=== PATIENT | male | born 1980 | race American Indian/Alaskan Native ===

== ENCOUNTER 2019-12-27 11:36 | Inpatient (IN) | payer OTHER ==
[2019-12-27] MEDS ORDERED: SODIUM CHLORIDE 0.9% 1000 ML 1,000 ML IV ONE (12:23)
[2019-12-27] MEDS ORDERED: FAMOTIDINE 20 MG/2 ML INJ IV ONE (12:23)
[2019-12-27] MEDS ORDERED: ONDANSETRON 4 MG/2 ML INJ IV ONE (12:23)
[2019-12-27 13:19] LABS: Hematocrit 55.5 % (35.5-45.6); Hemoglobin 18.9 gm/dl (11.8-15.2); Mean Corpuscular HGB Conc 34 % (32-34); Mean Corpuscular Volume 87 fl (84-94); Platelet Count 244 K/mm3 (140-440); Red Blood Count 6.38 M/mm3 (3.65-5.03); Red Cell Distribution Width 15.2 % (13.2-15.2)
[2019-12-27 13:42] LABS: Alanine Aminotransferase 10 units/L (7-56); Albumin 3.4 g/dL (3.9-5); BUN/Creatinine Ratio 8; Blood Urea Nitrogen 7 mg/dL (9-20); Calcium 9.3 mg/dL (8.4-10.2); Hemolysis Index 27
[2019-12-27] MEDS ORDERED: KETOROLAC 30 MG/1 ML INJ IV ONE (13:59)
[2019-12-27] MEDS ORDERED: DEXTROSE 50% IN WATER (25GM) 50 ML SYRINGE IV ONE (14:14)
[2019-12-27 14:39] LABS: Basophils % (Manual) 0 % (0.0-1.8); Total Cells Counted 100
[2019-12-27 14:40] LABS: Anisocytosis Few; Platelet Estimate Consistent w Auto; Poikilocytosis Few
--- NOTE | 2019-12-27 15:42 | Cat Scan Report ---
CT abdomen pelvis w con INDICATION / CLINICAL INFORMATION: Abdominal pain. TECHNIQUE: Axial CT imaging of abdomen and pelvis was obtained with IV contrast. Coronal and sagittal reformatte d imaging obtained and reviewed. All CT scans at this location are performed using CT dose reduction for ALARA by means of automated exposure control. COMPARISON: None available. FINDINGS: CT abdomen with contrast demonstrates normal appearance of liver, spleen, pancreas, left kidney, and adrenal glands. Right kidney is absent Gallbladder is grossly unremarkable. There is moderate intrahe patic biliary dilatation of uncertain etiology. GI tract is grossly abnormal. There is prominent dilatation of the majority of small bowel. Small bow el is fluid-filled and moderately distended. The stomach is also distended with fluid. The colon is c ollapsed. I do not confidently identify any collapsed loops of distal small bowel. Therefore the lev el of obstruction appears to be at the approximate location of the ileocecal valve. CT pelvis with contrast does not demonstrate any mass, free fluid, or focal inflammatory change. Visualized lung bases are clear. Review of osseous structures does not demonstrate any acute osseous abnormality. Several small but francis ne islands are present throughout the pelvis. IMPRESSION: 1. Abnormal appearance of the GI tract. There is prominent fluid-filled dilated small bowel and stoma ch, most likely representing distal small bowel obstruction. 2. Moderate intrahepatic biliary dilatation of uncertain etiology. Please correlate with liver enzyme s and bilirubin levels. Signer Name: Jodi Clayton MD Signed: 12/27/2019 3:37 PM Workstation Name: [id number]
[2019-12-27] MEDS ORDERED: MORPHINE 4 MG/1 ML INJ IV ONE (15:52)
[2019-12-27] MEDS ORDERED: LORazepam 2 MG/ML VIAL IV ONE (15:53)
--- NOTE | 2019-12-27 16:05 | Emergency Department Report ---
ED Abdominal Pain HPI - General Chief Complaint: Abdominal Pain Stated Complaint: ABD PAIN Time Seen by Provider: 12/27/19 12:14 Source: EMS Mode of arrival: Ambulatory Limitations: No Limitations - History of Present Illness Initial Comments: Patient is a 39-year-old F [place] male with a past medical history of right- sided nephrectomy status post Wilms tumor and appendectomy both of which occurred in the late 80s who is presenting with abdominal pain. Patient states for the past 2 days he has had some abdominal distention in the right lower quad rant and crampy 10 out of 10 pain. He has had multiple episodes of nausea and vomiting. He prefers to be on his knees hunched over in a ball. Denies fever chills cough cold or congestion. Patient stated he had a small bowel movement earlier today. States there was no blood in the stool. Severity scale (0 -10): 10 - Related Data Allergies Allergy/AdvReac Type Severity Reaction Status Date / Time No Known Allergies Allergy Unverified 12/27/19 11:57 ED Review of Systems ROS: Stated complaint: ABD PAIN Other details as noted in HPI Comment: All other systems reviewed and negative ED Past Medical Hx - Past Medical History Previous Medical History?: Yes - Surgical History Past Surgical History?: Yes Hx Appendectomy: Yes (Removed) Additional Surgical History: Right side kidner removed - Social History Smoking Status: Unknown if ever smoked ED Physical Exam - General Limitations: No Limitations General appearance: alert, in distress - Head Head exam: Present: atraumatic, normocephalic - Eye Eye exam: Present: normal appearance, PERRL, EOMI - ENT ENT exam: Present: mucous membranes dry - Neck Neck exam: Present: normal inspection - Respiratory Respiratory exam: Present: normal lung sounds bilaterally. Absent: respiratory distress, wheezes, rales, rhonchi - Cardiovascular Cardiovascular Exam: Present: regular rate, normal rhythm. Absent: systolic murmur, diastolic murmur, rubs, gallop - GI/Abdominal GI/Abdominal exam: Present: soft, tenderness (RLQ ), normal bowel sounds, hypoactive bowel sounds. Absent: distended, guarding, rebound - Rectal Rectal exam: Present: deferred - Extremities Exam Extremities exam: Present: normal inspection - Back Exam Back exam: Present: normal inspection - Neurological Exam Neurological exam: Present: alert, oriented X3 - Psychiatric Psychiatric exam: Present: normal affect, normal mood - Skin Skin exam: Present: warm, dry, intact, normal color. Absent: rash ED Course Vital Signs 12/27/19 12/27/19 12/27/19 11:52 11:53 14:26 Temperature 98.3 F 98.3 F Pulse Rate 58 L 60 Respiratory 22 22 20 Rate Blood Pressure 140/90 Blood Pressure 140/90 [Left] O2 Sat by Pulse 98 98 Oximetry ED Medical Decision Making - Lab Data Result diagrams: 12/27/19 12:39 12/27/19 12:39 Lab Results 12/27/19 12/27/19 Range/Units 12:39 12:39 WBC 9.1 (4.5-11.0) K/mm3 RBC 6.38 H (3.65-5.03) M/mm3 Hgb 18.9 H (11.8-15.2) gm/dl Hct 55.5 H (35.5-45.6) % MCV 87 (84-94) fl MCH 30 (28-32) pg MCHC 34 (32-34) % RDW 15.2 (13.2-15.2) % Plt Count 244 (140-440) K/mm3 Add Manual Diff Complete Total Counted 100 Seg Neutrophils % Degreasing Solution Reclaimer Seg Neuts % (Manual) 90.0 H (40.0-70.0) % Band Neutrophils % 0 % Lymphocytes % (Manual) 5.0 L (13.4-35.0) % Reactive Lymphs % (Man) 0 % Monocytes % (Manual) 4.0 (0.0-7.3) % Eosinophils % (Manual) 1.0 (0.0-4.3) % Basophils % (Manual) 0 (0.0-1.8) % Metamyelocytes % 0 % Myelocytes % 0 % Promyelocytes % 0 % Blast Cells % 0 % Nucleated RBC % Not Reportable Seg Neutrophils # Man 8.2 H (1.8-7.7) K/mm3 Band Neutrophils # 0.0 K/mm3 Lymphocytes # (Manual) 0.5 L (1.2-5.4) K/mm3 Abs React Lymphs (Man) 0.0 K/mm3 Monocytes # (Manual) 0.4 (0.0-0.8) K/mm3 Eosinophils # (Manual) 0.1 (0.0-0.4) K/mm3 Basophils # (Manual) 0.0 (0.0-0.1) K/mm3 Metamyelocytes # 0.0 K/mm3 Myelocytes # 0.0 K/mm3 Promyelocytes # 0.0 K/mm3 Blast Cells # 0.0 K/mm3 WBC Morphology Not Reportable Hypersegmented Neuts Not Reportable Hyposegmented Neuts Not Reportable Hypogranular Neuts Not Reportable Smudge Cells Not Reportable Toxic Granulation Not Reportable Toxic Vacuolation Not Reportable Dohle Bodies Not Reportable Pelger-Huet Anomaly Not Reportable Anuradha Rods Not Reportable Platelet Estimate Consistent w auto Clumped Platelets Not Reportable Plt Clumps, EDTA Not Reportable Large Platelets Not Reportable Giant Platelets Not Reportable Platelet Satelliting Not Reportable Plt Morphology Comment Not Reportable RBC Morphology Not Reportable Dimorphic RBCs Not Reportable Polychromasia Not Reportable Hypochromasia Not Reportable Poikilocytosis Few Anisocytosis Few Microcytosis Not Reportable Macrocytosis Not Reportable Spherocytes Not Reportable Pappenheimer Bodies Not Reportable Sickle Cells Not Reportable Target Cells Not Reportable Tear Drop Cells Not Reportable Ovalocytes Not Reportable Helmet Cells Not Reportable [place] Bodies Not Reportable [place] Rings Not Reportable Kaylie Cells Not Reportable Bite Cells Not Reportable Crenated Cell Not Reportable Elliptocytes Rare Acanthocytes (Spur) Not Reportable Rouleaux Not Reportable Hemoglobin C Crystals Not Reportable Schistocytes Not Reportable Malaria parasites Not Reportable Christ Bodies Not Reportable Hem Pathologist Commnt No Sodium 140 (137-145) mmol/L Potassium 4.5 (3.6-5.0) mmol/L Chloride 100.8 (98-107) mmol/L Carbon Dioxide 26 (22-30) mmol/L Anion Gap 18 mmol/L BUN 7 L (9-20) mg/dL Creatinine 0.9 (0.8-1.3) mg/dL Estimated GFR > 60 ml/min BUN/Creatinine Ratio 8 % Glucose 109 H (75-100) mg/dL Calcium 9.3 (8.4-10.2) mg/dL Total Bilirubin 1.00 (0.1-1.2) mg/dL AST 15 (5-40) units/L ALT 10 (7-56) units/L Alkaline Phosphatase 140 H (35-129) units/L Total Protein 5.9 L (6.3-8.2) g/dL Albumin 3.4 L (3.9-5) g/dL Albumin/Globulin Ratio 1.4 % - Radiology Data CT abdomen pelvis w con INDICATION / CLINICAL INFORMATION: Abdominal pain. TECHNIQUE: Axial CT imaging of abdomen and pelvis was obtained with IV contrast. Coronal and sagittal reformatted imaging obtained and reviewed. All CT scans at this location are performed using CT d ose reduction for ALARA by means of automated exposure control. COMPARISON: None available. FINDINGS: CT abdomen with contrast demonstrates normal appearance of liver, spleen, pancreas, left kidney, and adrenal glands. Right kidney is absent Gallbladder is grossly unremarkable. There is moderate intrahepatic biliary dilatation of uncertain etiology. GI tract is grossly abnormal. There is prominent dilatation of the majority of small bowel. Small bowel is fluid-filled and moderately distended. The stomach is also distended with fluid. The colon is collapsed. I do not confidently identify any collapsed loops of distal small bowel. Therefore the level of obstruction appears to be at the approximate location of the ileocecal valve. CT pelvis with contrast does not demonstrate any mass, free fluid, or focal inflammatory change. Visualized lung bases are clear. Review of osseous structures does not demonstrate any acute osseous abnormality. Several small but bone islands are present throughout the pelvis. IMPRESSION: 1. Abnormal appearance of the GI tract. There is prominent fluid-filled dilated small bowel and stomach, most likely representing distal small bowel obstruction. 2. Moderate intrahepatic biliary dilatation of uncertain etiology. Please correlate with liver enzymes and bilirubin levels. Signer Name: Jodi Clayton MD Signed: 12/27/2019 3:37 PM Workstation Name: [id number] Transcribed By: Dictated By: Jodi Clayton MD Electronically Authenticated By: Jodi Clayton MD Signed Date/Time: 12/27/19 [id number] - Medical Decision Making Patient is a 39-year-old F [place] male who is presenting with abdominal pain. Has had multiple episodes of nausea vomiting and some subjective abdominal distention at home. There was a delay with getting a CT secondary to the patient initially refusing secondary to pain. I was concerned about bowel obstruction therefore initially did not want to give the patient narcotics. Patient does have evidence of small bowel obstruction. We will given 1 dose of morphine and Ativan to tolerate getting the NG tube. Will consult with general surgery and the patient be admitted to the hospitalist service. Critical care attestation.: If time is entered above; I have spent that time in minutes in the direct care of this critically ill patient, excluding procedure time. ED Disposition Clinical Impression: Small bowel obstruction Disposition: OP ADMIT IP TO THIS HOSP Is pt being admited?: Yes Does the pt Need Aspirin: No Condition: Stable Time of Disposition: 16:05
--- NOTE | 2019-12-27 18:11 | Consultation ---
History of Present Illness - Reason for Consult Consult date: 12/27/19 - History of Present Illness This a 39 year old male with a several day hx of progressive abd distension, nausea, vomiting and abd pain. He has a hx of having had a Wilms tumor resected in the s, he recieved radiation and chemotherapy, right nephrectomy. He has enjoyed good health in the interim, and when I examined him he gave a poor history when I asked detailed questions about his hx. He presented to the ER with dehydration and a CT abd pelvis revealing diffuse SBO with no obvious transition point. He does have rather diffuse changes in his small intestine which may be the result of previous radiation. He has an NG placed in the ER.His lactic acid is mildly elevated secondary to dehydration.His WBC is normal, he does not have sinus tach or a worrisome abd exam. Past History Past Surgical History: Other (hx of right nephrectomy and adjunctive therapy) Social history: no significant social history Family history: no significant family history Medications and Allergies Allergies Allergy/AdvReac Type Severity Reaction Status Date / Time No Known Allergies Allergy Unverified 12/27/19 11:57 Active Meds: Active Medications Sodium Chloride (Nacl 0.9% 1000 Ml) 1,000 mls @ 150 mls/hr IV DIRECT SUSAN Review of Systems Gastrointestinal: abdominal pain, nausea, vomiting Exam - Constitutional Vitals: Temp Pulse Resp BP Pulse Ox 98.3 F 88 18 130/70 98 12/27/19 12:16 12/27/19 17:18 12/27/19 17:18 12/27/19 17:18 12/27/19 17:18 General appearance: Present: mild distress - EENT Eyes: Present: PERRL ENT: hearing intact, clear oral mucosa - Neck Neck: Present: supple, normal ROM - Respiratory Respiratory effort: normal Respiratory: bilateral: CTA - Cardiovascular Rhythm: regular - Extremities Extremities: pulses symmetrical, No edema - Abdominal General gastrointestinal: Present: distended, normal bowel sounds, other (no rebound or guarding) Male genitourinary: Present: normal - Rectal Rectal Exam: deferred - Musculoskeletal Musculoskeletal: gait normal, strength equal bilaterally - Psychiatric Psychiatric: appropriate mood/affect, intact judgment & insight - Neurologic Neurologic: CNII-XII intact, moves all extremities Results - Labs CBC & Chem 7: 12/27/19 12:39 12/27/19 12:39 Labs: Abnormal lab results 12/27/19 12/27/19 12/27/19 Range/Units 12:39 12:39 17:14 RBC 6.38 H (3.65-5.03) M/mm3 Hgb 18.9 H (11.8-15.2) gm/dl Hct 55.5 H (35.5-45.6) % Seg Neuts % (Manual) 90.0 H (40.0-70.0) % Lymphocytes % (Manual) 5.0 L (13.4-35.0) % Seg Neutrophils # Man 8.2 H (1.8-7.7) K/mm3 Lymphocytes # (Manual) 0.5 L (1.2-5.4) K/mm3 BUN 7 L (9-20) mg/dL Glucose 109 H (75-100) mg/dL Lactic Acid 2.40 H* (0.7-2.0) mmol/L Alkaline Phosphatase 140 H (35-129) units/L Total Protein 5.9 L (6.3-8.2) g/dL Albumin 3.4 L (3.9-5) g/dL Assessment and Plan This is actually potentially a very complex and risky case, I am very concerned about the possibility of radiation changes from his treatment of his Wilm's Tumor resulting in obliterative endarteritis or advanced radiation changes in his small bowel, I will review CT with radiology, patient needs aggressive rehydration, pain control, and decompression with NG for 24-48 hours then possible gastrograffin small bowel series to see if he opens up,also repeat or serial lytes to ensure patient is adequately rehydrated. Will follow.
[2019-12-27 18:26] LABS: Bilirubin,Urine NEG (Negative); Blood,Urine MOD (Negative); Color,Urine Yellow (Yellow); Mucus,Urine 3+ /HPF; Urobilinogen,Urine < 2.0 mg/dL (<2.0)
[2019-12-27] MEDS: SODIUM CHLORIDE 0.9% 1000 ML 1,000 ML IV SCH (21:30)
[2019-12-27] MEDS ORDERED: MORPHINE 2 MG/1 ML INJ IV PRN (21:42)
--- NOTE | 2019-12-27 23:13 | History and Physical Report ---
History of Present Illness Date of examination: 12/27/19 Date of admission: 12/27/19 16:08 Chief complaint: Abdominal pain nausea and vomiting for 2 days History of present illness: 39-year-old with no significant past medical history except for removal of right kidney because of the tumor(Wilms) comes in for persistent nausea vomiting and abdominal pain of 2 days duration. Unable to tolerate anything orally. Pain is about 10 on a scale of 1-10. Sharp and crampy pain. No fever or chills. No exposure to coronavirus. No history of small bowel obstruction in the past. - Past Medical History Previous Medical History?: Yes - Surgical History Past Surgical History?: Yes Hx Appendectomy: Yes (Removed) Additional Surgical History: Right side kidner removed - Social History Smoking Status: Unknown if ever smoked Review of Systems ROS: Stated complaint: ABD PAIN Other details as noted in HPI Comment: All other systems reviewed and negative Past History Past Surgical History: Other (hx of right nephrectomy and adjunctive therapy) Social history: no significant social history Family history: no significant family history Medications and Allergies Allergies Allergy/AdvReac Type Severity Reaction Status Date / Time No Known Allergies Allergy Unverified 12/27/19 11:57 Active Meds: Active Medications Sodium Chloride (Nacl 0.9% 1000 Ml) 1,000 mls @ 150 mls/hr IV DIRECT SUSAN Last Admin: 12/27/19 21:30 Dose: 150 mls/hr Documented by: Morphine Sulfate (Morphine) 2 mg IV Q4H PRN PRN Reason: Pain, Moderate (4-6) Last Admin: 12/27/19 22:05 Dose: 2 mg Documented by: Exam - Constitutional Vitals: Temp Pulse Resp BP Pulse Ox 98.3 F 64 18 109/64 99 12/27/19 20:05 12/27/19 20:05 12/27/19 20:05 12/27/19 20:05 12/27/19 20:05 General appearance: Present: severe distress, well-nourished - EENT Eyes: Present: PERRL ENT: hearing intact, clear oral mucosa - Neck Neck: Present: supple, normal ROM - Respiratory Respiratory effort: normal Respiratory: bilateral: CTA - Cardiovascular Heart rate: 88 Rhythm: regular Heart Sounds: Present: S1 & S2. Absent: rub, click - Extremities Extremities: no ischemia, pulses symmetrical, No edema Peripheral Pulses: within normal limits - Abdominal General gastrointestinal: Present: soft, tender, distended, hypoactive bowel sounds Localized gastrointestinal: tender: diffuse, guarding: diffuse Male genitourinary: Present: normal - Integumentary Integumentary: Present: clear, warm, dry - Musculoskeletal Musculoskeletal: gait normal, strength equal bilaterally - Psychiatric Psychiatric: appropriate mood/affect, intact judgment & insight - Neurologic Neurologic: CNII-XII intact, moves all extremities - Allied Health Allied health notes reviewed: nursing, case management Results - Labs CBC & Chem 7: 12/28/19 04:35 12/28/19 04:35 Labs: Laboratory Last Values WBC 9.1 K/mm3 (4.5-11.0) 12/27/19 12:39 RBC 6.38 M/mm3 (3.65-5.03) H 12/27/19 12:39 Hgb 18.9 gm/dl (11.8-15.2) H 12/27/19 12:39 Hct 55.5 % (35.5-45.6) H 12/27/19 12:39 MCV 87 fl (84-94) 12/27/19 12:39 MCH 30 pg (28-32) 12/27/19 12:39 MCHC 34 % (32-34) 12/27/19 12:39 RDW 15.2 % (13.2-15.2) 12/27/19 12:39 Plt Count 244 K/mm3 (140-440) 12/27/19 12:39 Add Manual Diff Complete 12/27/19 12:39 Total Counted 100 12/27/19 12:39 Seg Neutrophils % Remarketing Manager 12/27/19 12:39 Seg Neuts % (Manual) 90.0 % (40.0-70.0) H 12/27/19 12:39 Band Neutrophils % 0 % 12/27/19 12:39 Lymphocytes % (Manual) 5.0 % (13.4-35.0) L 12/27/19 12:39 Reactive Lymphs % (Man) 0 % 12/27/19 12:39 Monocytes % (Manual) 4.0 % (0.0-7.3) 12/27/19 12:39 Eosinophils % (Manual) 1.0 % (0.0-4.3) 12/27/19 12:39 Basophils % (Manual) 0 % (0.0-1.8) 12/27/19 12:39 Metamyelocytes % 0 % 12/27/19 12:39 Myelocytes % 0 % 12/27/19 12:39 Promyelocytes % 0 % 12/27/19 12:39 Blast Cells % 0 % 12/27/19 12:39 Nucleated RBC % Not Reportable 12/27/19 12:39 Seg Neutrophils # Man 8.2 K/mm3 (1.8-7.7) H 12/27/19 12:39 Band Neutrophils # 0.0 K/mm3 12/27/19 12:39 Lymphocytes # (Manual) 0.5 K/mm3 (1.2-5.4) L 12/27/19 12:39 Abs React Lymphs (Man) 0.0 K/mm3 12/27/19 12:39 Monocytes # (Manual) 0.4 K/mm3 (0.0-0.8) 12/27/19 12:39 Eosinophils # (Manual) 0.1 K/mm3 (0.0-0.4) 12/27/19 12:39 Basophils # (Manual) 0.0 K/mm3 (0.0-0.1) 12/27/19 12:39 Metamyelocytes # 0.0 K/mm3 12/27/19 12:39 Myelocytes # 0.0 K/mm3 12/27/19 12:39 Promyelocytes # 0.0 K/mm3 12/27/19 12:39 Blast Cells # 0.0 K/mm3 12/27/19 12:39 WBC Morphology Not Reportable 12/27/19 12:39 Hypersegmented Neuts Not Reportable 12/27/19 12:39 Hyposegmented Neuts Not Reportable 12/27/19 12:39 Hypogranular Neuts Not Reportable 12/27/19 12:39 Smudge Cells Not Reportable 12/27/19 12:39 Toxic Granulation Not Reportable 12/27/19 12:39 Toxic Vacuolation Not Reportable 12/27/19 12:39 Dohle Bodies Not Reportable 12/27/19 12:39 Pelger-Huet Anomaly Not Reportable 12/27/19 12:39 Anuradha Rods Not Reportable 12/27/19 12:39 Platelet Estimate Consistent w auto 12/27/19 12:39 Clumped Platelets Not Reportable 12/27/19 12:39 Plt Clumps, EDTA Not Reportable 12/27/19 12:39 Large Platelets Not Reportable 12/27/19 12:39 Giant Platelets Not Reportable 12/27/19 12:39 Platelet Satelliting Not Reportable 12/27/19 12:39 Plt Morphology Comment Not Reportable 12/27/19 12:39 RBC Morphology Not Reportable 12/27/19 12:39 Dimorphic RBCs Not Reportable 12/27/19 12:39 Polychromasia Not Reportable 12/27/19 12:39 Hypochromasia Not Reportable 12/27/19 12:39 Poikilocytosis Few 12/27/19 12:39 Anisocytosis Few 12/27/19 12:39 Microcytosis Not Reportable 12/27/19 12:39 Macrocytosis Not Reportable 12/27/19 12:39 Spherocytes Not Reportable 12/27/19 12:39 Pappenheimer Bodies Not Reportable 12/27/19 12:39 Sickle Cells Not Reportable 12/27/19 12:39 Target Cells Not Reportable 12/27/19 12:39 Tear Drop Cells Not Reportable 12/27/19 12:39 Ovalocytes Not Reportable 12/27/19 12:39 Helmet Cells Not Reportable 12/27/19 12:39 Aleman-[place] Bodies Not Reportable 12/27/19 12:39 [place] Rings Not Reportable 12/27/19 12:39 Kaylie Cells Not Reportable 12/27/19 12:39 Bite Cells Not Reportable 12/27/19 12:39 Crenated Cell Not Reportable 12/27/19 12:39 Elliptocytes Rare 12/27/19 12:39 Acanthocytes (Spur) Not Reportable 12/27/19 12:39 Rouleaux Not Reportable 12/27/19 12:39 Hemoglobin C Crystals Not Reportable 12/27/19 12:39 Schistocytes Not Reportable 12/27/19 12:39 Malaria parasites Not Reportable 12/27/19 12:39 Christ Bodies Not Reportable 12/27/19 12:39 Hem Pathologist Commnt No 12/27/19 12:39 Sodium 140 mmol/L (137-145) 12/27/19 12:39 Potassium 4.5 mmol/L (3.6-5.0) 12/27/19 12:39 Chloride 100.8 mmol/L (98-107) 12/27/19 12:39 Carbon Dioxide 26 mmol/L (22-30) 12/27/19 12:39 Anion Gap 18 mmol/L 12/27/19 12:39 BUN 7 mg/dL (9-20) L 12/27/19 12:39 Creatinine 0.9 mg/dL (0.8-1.3) 12/27/19 12:39 Estimated GFR > 60 ml/min 12/27/19 12:39 BUN/Creatinine Ratio 8 % 12/27/19 12:39 Glucose 109 mg/dL (75-100) H 12/27/19 12:39 Lactic Acid 2.10 mmol/L (0.7-2.0) H* 12/27/19 19:07 Calcium 9.3 mg/dL (8.4-10.2) 12/27/19 12:39 Total Bilirubin 1.00 mg/dL (0.1-1.2) 12/27/19 12:39 AST 15 units/L (5-40) 12/27/19 12:39 ALT 10 units/L (7-56) 12/27/19 12:39 Alkaline Phosphatase 140 units/L (35-129) H 12/27/19 12:39 Total Protein 5.9 g/dL (6.3-8.2) L 12/27/19 12:39 Albumin 3.4 g/dL (3.9-5) L 12/27/19 12:39 Albumin/Globulin Ratio 1.4 % 12/27/19 12:39 Urine Color Yellow (Yellow) 12/27/19 Unknown Urine Turbidity Clear (Clear) 12/27/19 Unknown Urine pH 5.0 (5.0-7.0) 12/27/19 Unknown Ur Specific [place] > 1.059 (1.003-1.030) H 12/27/19 Unknown Urine Protein 30 mg/dl mg/dL (Negative) 12/27/19 Unknown Urine Glucose (UA) Neg mg/dL (Negative) 12/27/19 Unknown Urine Ketones 20 mg/dL (Negative) 12/27/19 Unknown Urine Blood Mod (Negative) 12/27/19 Unknown Urine Nitrite Neg (Negative) 12/27/19 Unknown Urine Bilirubin Neg (Negative) 12/27/19 Unknown Urine Urobilinogen < 2.0 mg/dL (<2.0) 12/27/19 Unknown Ur Leukocyte Esterase Neg (Negative) 12/27/19 Unknown Urine WBC (Auto) 2.0 /HPF (0.0-6.0) 12/27/19 Unknown Urine RBC (Auto) 28.0 /HPF (0.0-6.0) 12/27/19 Unknown U Epithel Cells (Auto) < 1.0 /HPF (0-13.0) 12/27/19 Unknown Urine Mucus 3+ /HPF 12/27/19 Unknown Azul/IV: IV Catheter Type [Right INT / Saline Lock Antecubital] Assessment and Plan Advance Directives: Yes (Full code) VTE prophylaxis?: Chemical Plan of care discussed with patient/family: Yes - Patient Problems (1) Small bowel obstruction Current Visit: Yes Status: Acute Plan to address problem: Conservative treatment for now [facility] appreciated (2) Dehydration Current Visit: Yes Status: Acute Plan to address problem: Secondary to persistent vomiting IV fluids for now (3) DVT prophylaxis Current Visit: Yes Status: Acute Plan to address problem: On heparin and GI prophylaxis
[2019-12-27] MEDS ORDERED: METOCLOPRAMIDE 10 MG/2 ML INJ IV PRN (23:14)
[2019-12-28] MEDS: FAMOTIDINE 20 MG/2 ML INJ IV SCH ×3 (00:17→21:00)
[2019-12-28] MEDS: HYDROmorphone 1 MG/1 ML INJ IV PRN ×2 (00:46→04:40)
[2019-12-28 05:03] LABS: Basophils % (Auto) 0.4 % (0.0-1.8); Eosinophils % (Auto) 0.4 % (0.0-4.3); Hemoglobin 16.5 gm/dl (11.8-15.2); Lymphocytes # (Auto) 0.9 K/mm3 (1.2-5.4); Lymphocytes % (Auto) 13.6 % (13.4-35.0); Monocytes # (Auto) 0.4 K/mm3 (0.0-0.8); Monocytes % (Auto) 6.8 % (0.0-7.3)
[2019-12-28 05:16] LABS: Alanine Aminotransferase 8 units/L (7-56); Albumin 2.9 g/dL (3.9-5); BUN/Creatinine Ratio 11; Blood Urea Nitrogen 9 mg/dL (9-20); Calcium 8.4 mg/dL (8.4-10.2); Hematocrit 49.5 % (35.5-45.6); Hemolysis Index 13; Mean Corpuscular HGB Conc 34 % (32-34); Mean Corpuscular Volume 88 fl (84-94); Platelet Count 227 K/mm3 (140-440); Red Blood Count 5.63 M/mm3 (3.65-5.03)
[2019-12-28] MEDS: SODIUM CHLORIDE 0.9% 1000 ML 1,000 ML IV SCH ×3 (06:00→21:50)
--- NOTE | 2019-12-28 07:04 | XRay Report ---
ABDOMEN 1 VIEW(S) 12/28/2019 5:48 AM INDICATION / CLINICAL INFORMATION: ng placement. COMPARISON: None available. FINDINGS: The tip of an esophagogastric tube projects over the proximal stomach with side hole noted in distal esophagus. Recommend recommend NG tube advancement into distal stomach. Signer Name: Elton Morelos MD Signed: 12/28/2019 7:00 AM Workstation Name: [email or web address]
[2019-12-28] MEDS: MORPHINE 2 MG/1 ML INJ IV PRN ×4 (08:22→20:46)
--- NOTE | 2019-12-28 08:40 | Progress Note ---
Assessment and Plan - Patient Problems (1) DVT prophylaxis Current Visit: Yes Status: Acute (2) Dehydration Current Visit: Yes Status: Acute Plan to address problem: Resolved. (3) Small bowel obstruction Current Visit: Yes Status: Acute Plan to address problem: Patient hooked up to NG to low intermittent suction. Long discussion with surgery about consultation. Concerned about radiation changes to the small bowel. Thinks surgery would be risky at this time. Plan was to hydrate patient supportive care for 24 hours and attempt Gastrografin in a.m. If patient opens up will discharge and if not may require surgical intervention. Subjective Date of service: 12/28/19 Principal diagnosis: Abdominal pain small bowel obstruction Interval history: 39-year-old presented with persistent nausea and vomiting abdominal pain x2 days. Pain described as [address] scan abdomen showed small bowel obstruction. Patient had NG tube placed to low intermittent suction. Surgical consult obtained concerned about radiation changes in small bowel. Patient currently being decompressed. Patient has NG tube to suction. States he wants some ice chips. Pain is much better. Patient uncomfortable because of thirst and NG tube. But with surgery in detail. Explained about complications of devan staley's present admission. Objective - Constitutional Vitals: Vital Signs - 12hr 12/27/19 12/28/19 12/28/19 23:05 05:26 08:09 Temperature 98.6 F 98.1 F 98.4 F Pulse Rate 70 58 L 59 L Respiratory 18 18 19 Rate Blood Pressure 101/62 99/62 125/74 O2 Sat by Pulse 97 99 100 Oximetry General appearance: Present: no acute distress, well-nourished - EENT Eyes: PERRL, EOM intact ENT: hearing intact, clear oral mucosa Ears: bilateral: normal - Neck Neck: supple, normal ROM - Respiratory Respiratory effort: normal Respiratory: bilateral: CTA - Breasts Breasts: normal - Cardiovascular Rhythm: regular Heart Sounds: Present: S1 & S2. Absent: gallop, rub Extremities: pulses intact, No edema, normal color, Full ROM - Gastrointestinal General gastrointestinal: Present: tender, non-distended, normal bowel sounds. Absent: hepatomegaly, splenomegaly - Genitourinary Male genitourinary: normal - Integumentary Integumentary: clear, warm, dry - Musculoskeletal Musculoskeletal: 1, strength equal bilaterally - Neurologic Neurologic: moves all extremities - Psychiatric Psychiatric: memory intact, appropriate mood/affect, intact judgment & insight - Labs CBC & Chem 7: 12/28/19 04:35 12/28/19 04:35 Labs: Abnormal lab results 12/27/19 12/27/19 12/27/19 Range/Units 12:39 12:39 17:14 RBC 6.38 H (3.65-5.03) M/mm3 Hgb 18.9 H (11.8-15.2) gm/dl Hct 55.5 H (35.5-45.6) % Lymph # (Auto) (1.2-5.4) K/mm3 Seg Neutrophils % (40.0-70.0) % Seg Neuts % (Manual) 90.0 H (40.0-70.0) % Lymphocytes % (Manual) 5.0 L (13.4-35.0) % Seg Neutrophils # Man 8.2 H (1.8-7.7) K/mm3 Lymphocytes # (Manual) 0.5 L (1.2-5.4) K/mm3 BUN 7 L (9-20) mg/dL Glucose 109 H (75-100) mg/dL Lactic Acid 2.40 H* (0.7-2.0) mmol/L Alkaline Phosphatase 140 H (35-129) units/L Total Protein 5.9 L (6.3-8.2) g/dL Albumin 3.4 L (3.9-5) g/dL Ur Specific [place] (1.003-1.030) 12/27/19 12/27/19 12/28/19 Range/Units 19:07 Unknown 04:35 RBC 5.63 H (3.65-5.03) M/mm3 Hgb 16.5 H (11.8-15.2) gm/dl Hct 49.5 H D (35.5-45.6) % Lymph # (Auto) 0.9 L (1.2-5.4) K/mm3 Seg Neutrophils % 78.8 H (40.0-70.0) % Seg Neuts % (Manual) (40.0-70.0) % Lymphocytes % (Manual) (13.4-35.0) % Seg Neutrophils # Man (1.8-7.7) K/mm3 Lymphocytes # (Manual) (1.2-5.4) K/mm3 BUN (9-20) mg/dL Glucose (75-100) mg/dL Lactic Acid 2.10 H* (0.7-2.0) mmol/L Alkaline Phosphatase (35-129) units/L Total Protein (6.3-8.2) g/dL Albumin (3.9-5) g/dL Ur Specific [place] > 1.059 H (1.003-1.030) 12/28/19 Range/Units 04:35 RBC (3.65-5.03) M/mm3 Hgb (11.8-15.2) gm/dl Hct (35.5-45.6) % Lymph # (Auto) (1.2-5.4) K/mm3 Seg Neutrophils % (40.0-70.0) % Seg Neuts % (Manual) (40.0-70.0) % Lymphocytes % (Manual) (13.4-35.0) % Seg Neutrophils # Man (1.8-7.7) K/mm3 Lymphocytes # (Manual) (1.2-5.4) K/mm3 BUN (9-20) mg/dL Glucose (75-100) mg/dL Lactic Acid (0.7-2.0) mmol/L Alkaline Phosphatase (35-129) units/L Total Protein 5.1 L (6.3-8.2) g/dL Albumin 2.9 L (3.9-5) g/dL Ur Specific [place] (1.003-1.030)
--- NOTE | 2019-12-28 11:29 | Progress Note ---
Subjective Date of service: 12/28/19 Principal diagnosis: Abdominal pain small bowel obstruction Interval history: VSS AF, about 200 cc out NG, not passing flatus , no BM, abd exam less distended , recc gastrograffin small bowel series in am and see if patient opens up, I spoke with Dr. Martinez (Hospitalist) about this. bun / creat better, lactic acid now normal, continue present management. Objective - Constitutional Vitals: Vital Signs - 12hr 12/28/19 12/28/19 05:26 08:09 Temperature 98.1 F 98.4 F Pulse Rate 58 L 59 L Respiratory 18 19 Rate Blood Pressure 99/62 125/74 O2 Sat by Pulse 99 100 Oximetry - Labs CBC & Chem 7: 12/28/19 04:35 12/28/19 04:35 Labs: Abnormal lab results 12/27/19 12/27/19 12/27/19 Range/Units 12:39 12:39 17:14 RBC 6.38 H (3.65-5.03) M/mm3 Hgb 18.9 H (11.8-15.2) gm/dl Hct 55.5 H (35.5-45.6) % Lymph # (Auto) (1.2-5.4) K/mm3 Seg Neutrophils % (40.0-70.0) % Seg Neuts % (Manual) 90.0 H (40.0-70.0) % Lymphocytes % (Manual) 5.0 L (13.4-35.0) % Seg Neutrophils # Man 8.2 H (1.8-7.7) K/mm3 Lymphocytes # (Manual) 0.5 L (1.2-5.4) K/mm3 BUN 7 L (9-20) mg/dL Glucose 109 H (75-100) mg/dL Lactic Acid 2.40 H* (0.7-2.0) mmol/L Alkaline Phosphatase 140 H (35-129) units/L Total Protein 5.9 L (6.3-8.2) g/dL Albumin 3.4 L (3.9-5) g/dL Ur Specific [place] (1.003-1.030) 12/27/19 12/27/19 12/28/19 Range/Units 19:07 Unknown 04:35 RBC 5.63 H (3.65-5.03) M/mm3 Hgb 16.5 H (11.8-15.2) gm/dl Hct 49.5 H D (35.5-45.6) % Lymph # (Auto) 0.9 L (1.2-5.4) K/mm3 Seg Neutrophils % 78.8 H (40.0-70.0) % Seg Neuts % (Manual) (40.0-70.0) % Lymphocytes % (Manual) (13.4-35.0) % Seg Neutrophils # Man (1.8-7.7) K/mm3 Lymphocytes # (Manual) (1.2-5.4) K/mm3 BUN (9-20) mg/dL Glucose (75-100) mg/dL Lactic Acid 2.10 H* (0.7-2.0) mmol/L Alkaline Phosphatase (35-129) units/L Total Protein (6.3-8.2) g/dL Albumin (3.9-5) g/dL Ur Specific [place] > 1.059 H (1.003-1.030) 12/28/19 Range/Units 04:35 RBC (3.65-5.03) M/mm3 Hgb (11.8-15.2) gm/dl Hct (35.5-45.6) % Lymph # (Auto) (1.2-5.4) K/mm3 Seg Neutrophils % (40.0-70.0) % Seg Neuts % (Manual) (40.0-70.0) % Lymphocytes % (Manual) (13.4-35.0) % Seg Neutrophils # Man (1.8-7.7) K/mm3 Lymphocytes # (Manual) (1.2-5.4) K/mm3 BUN (9-20) mg/dL Glucose (75-100) mg/dL Lactic Acid (0.7-2.0) mmol/L Alkaline Phosphatase (35-129) units/L Total Protein 5.1 L (6.3-8.2) g/dL Albumin 2.9 L (3.9-5) g/dL Ur Specific [place] (1.003-1.030) Medications & Allergies - Medications Allergies/Adverse Reactions: Allergies No Known Allergies Allergy (Unverified 12/27/19 11:57) Active Medications: Generic Name Dose Route Start Last Admin Trade Name Freq PRN Reason Stop Dose Admin Acetaminophen 650 mg 12/27/19 23:14 Tylenol PO Q4H PRN Pain MILD(1-3)/Fever >100.5/LAZCANO Famotidine 20 mg 12/27/19 23:45 12/28/19 00:17 Pepcid IV 20 mg BID SUSAN Administration Heparin Sodium (Porcine) 5,000 unit 12/28/19 10:00 Heparin SUB-Q Q12HR [facility] Hydromorphone HCl 1 mg 12/27/19 23:14 12/28/19 04:40 Dilaudid IV 1 mg Q3H PRN Administration Pain , Severe (7-10) Sodium Chloride 1,000 mls @ 100 mls/hr 12/27/19 16:15 12/28/19 06:00 Nacl 0.9% 1000 Ml IV 150 mls/hr DIRECT SUSAN Administration Metoclopramide HCl 10 mg 12/27/19 23:14 Reglan IV Q6H PRN Nausea And Vomiting Morphine Sulfate 2 mg 12/27/19 23:14 12/28/19 08:22 Morphine IV 2 mg Q4H PRN Administration Pain, Moderate (4-6) Ondansetron HCl 4 mg 12/27/19 23:14 Zofran IV Q3H PRN Nausea And Vomiting Sodium Chloride 10 ml 12/28/19 10:00 Sodium Chloride Flush Syringe 10 Ml IV BID SUSAN Sodium Chloride 10 ml 12/27/19 23:14 Sodium Chloride Flush Syringe 10 Ml IV PRN PRN LINE FLUSH
--- NOTE | 2019-12-28 11:47 | XRay Report ---
ABDOMEN 1 VIEW(S) INDICATION / CLINICAL INFORMATION: to check placement of NGT. COMPARISON: Earlier today FINDINGS: TUBES / LINES: NG tube has been slightly advanced in appropriate position with tip in the mid stomach . BOWEL GAS PATTERN: Nonobstructive bowel gas pattern with postoperative change in the right abdomen ag ain noted. FREE AIR / EXTRALUMINAL GAS: None seen. ADDITIONAL FINDINGS: No significant additional findings. IMPRESSION: 1. NG tube in satisfactory position in the mid abdomen. 2. Nonobstructive bowel gas pattern on this exam. Signer Name: Aidan Kim MD Signed: 12/28/2019 11:43 AM Workstation Name: [id number]
[2019-12-28] MEDS: HEPARIN 5,000 UNIT/1 ML VIAL SUB-Q SCH ×2 (12:31→21:00)
[2019-12-29] MEDS: MORPHINE 2 MG/1 ML INJ IV PRN (01:25)
[2019-12-29] MEDS: ONDANSETRON 4 MG/2 ML INJ IV PRN ×2 (01:37→12:31)
--- NOTE | 2019-12-29 02:21 | XRay Report ---
ABDOMEN 1 VIEW(S) INDICATION / CLINICAL INFORMATION: SBO and new NG tube position. COMPARISON: None available. FINDINGS: TUBES / LINES: NG tube tip projects over the gastroesophageal junction and could be advanced. BOWEL GAS PATTERN/EXTRALUMINAL GAS: No significant abnormality. No pneumatosis or secondary signs of free air. ADDITIONAL FINDINGS: No significant additional findings. IMPRESSION: 1. NG tube tip projects over the gastroesophageal junction. 2. Nonobstructive bowel gas pattern on this exam. Signer Name: Josesito Rouse MD Signed: 12/29/2019 2:17 AM Workstation Name: [email or web address]
[2019-12-29] MEDS: HYDROmorphone 1 MG/1 ML INJ IV PRN ×3 (06:29→12:32)
[2019-12-29] MEDS: SODIUM CHLORIDE 0.9% 1000 ML 1,000 ML IV SCH (06:32)
--- NOTE | 2019-12-29 08:00 | Progress Note ---
Assessment and Plan Complex case, should repeat lytes this am, patient pulled out NG last pm, it has been reinserted, around 350 cc out, abd relatively soft, consider gastrograffin small bowel series via NG ( normal transit time from stomach to colon less than 4 hours), be sure and resume suction after study to reduce risk of aspiration. I am uncertain study can be performed today, I will check with Radiology when they arrive. Ice chips are OK, but patient should not drink water! Depending on study result, patient may need PIC line and TPN, but we shall see. Subjective Date of service: 12/29/19 Principal diagnosis: Abdominal pain small bowel obstruction Objective - Constitutional Vitals: Vital Signs - 12hr 12/28/19 12/28/19 12/28/19 20:40 20:46 21:00 Temperature 98.8 F Pulse Rate 60 Pulse Rate [ 60 Right Radial] Respiratory 17 17 17 Rate Blood Pressure 118/56 [Left] O2 Sat by Pulse 96 Oximetry 12/28/19 12/29/19 12/29/19 21:16 01:25 01:55 Temperature Pulse Rate Pulse Rate [ Right Radial] Respiratory 16 16 16 Rate Blood Pressure [Left] O2 Sat by Pulse Oximetry 12/29/19 12/29/19 06:22 06:29 Temperature 97.7 F Pulse Rate 56 L Pulse Rate [ Right Radial] Respiratory 17 16 Rate Blood Pressure 122/63 [Left] O2 Sat by Pulse 97 Oximetry General appearance: Present: no acute distress - EENT Eyes: PERRL, EOM intact ENT: hearing intact, clear oral mucosa - Neck Neck: supple, normal ROM - Respiratory Respiratory effort: normal - Breasts Breasts: deferred - Cardiovascular Rhythm: regular - Gastrointestinal General gastrointestinal: Present: soft, non-tender, other (less distended, normal to hypoactive BS) - Psychiatric Psychiatric: memory intact, appropriate mood/affect, intact judgment & insight - Labs CBC & Chem 7: 12/28/19 04:35 12/28/19 04:35 Medications & Allergies - Medications Allergies/Adverse Reactions: Allergies No Known Allergies Allergy (Unverified 12/27/19 11:57) Active Medications: Generic Name Dose Route Start Last Admin Trade Name Freq PRN Reason Stop Dose Admin Acetaminophen 650 mg 12/27/19 23:14 Tylenol PO Q4H PRN Pain MILD(1-3)/Fever >100.5/[place]O Famotidine 20 mg 12/27/19 23:45 12/28/19 21:00 Pepcid IV 20 mg BID SUSAN Administration Heparin Sodium (Porcine) 5,000 unit 12/28/19 10:00 12/28/19 21:00 Heparin SUB-Q 5,000 unit Q12HR SUSAN Administration Hydromorphone HCl 1 mg 12/27/19 23:14 12/29/19 06:29 Dilaudid IV 1 mg Q3H PRN Administration Pain , Severe (7-10) Sodium Chloride 1,000 mls @ 100 mls/hr 12/27/19 16:15 12/29/19 06:32 Nacl 0.9% 1000 Ml IV 150 mls/hr DIRECT SUSAN Administration Metoclopramide HCl 10 mg 12/27/19 23:14 Reglan IV Q6H PRN Nausea And Vomiting Morphine Sulfate 2 mg 12/27/19 23:14 12/29/19 01:25 Morphine IV 2 mg Q4H PRN Administration Pain, Moderate (4-6) Ondansetron HCl 4 mg 12/27/19 23:14 12/29/19 01:37 Zofran IV 4 mg Q3H PRN Administration Nausea And Vomiting Sodium Chloride 10 ml 12/28/19 10:00 12/28/19 23:08 Sodium Chloride Flush Syringe 10 Ml IV 10 ml BID SUSAN Administration Sodium Chloride 10 ml 12/27/19 23:14 Sodium Chloride Flush Syringe 10 Ml IV PRN PRN LINE FLUSH
[2019-12-29] MEDS: HEPARIN 5,000 UNIT/1 ML VIAL SUB-Q SCH (10:16)
[2019-12-29] MEDS: FAMOTIDINE 20 MG/2 ML INJ IV SCH (10:17)
[2019-12-29] MEDS ORDERED: HYDROmorphone 1 MG/1 ML INJ IV ONE (10:27)
[2019-12-29] MEDS ORDERED: HYDROmorphone 2 MG/1 ML INJ IV PRN (12:25)
--- NOTE | 2019-12-29 13:57 | Progress Note ---
Assessment and Plan - Patient Problems (1) DVT prophylaxis Current Visit: Yes Status: Acute (2) Dehydration Current Visit: Yes Status: Acute Plan to address problem: Resolved. (3) Small bowel obstruction Current Visit: Yes Status: Acute Plan to address problem: Patient with small bowel obstruction now with persistent pain. 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 Patient still has persistent pain. Will attempt to continue NG tube suction if patient will allow. Will obtain CT scan abdomen pelvis to rule out all possible etiologies such as perforation. Will obtain a.m. labs amylase lipase lactic acid. Evaluate for infection. Subjective Date of service: 12/29/19 Principal diagnosis: Abdominal pain small bowel obstruction Interval history: Patient today complains of abdominal pain really left lower quadrant. States is severe. States current pain medications not really helping. Patient has pulled NG tube out this is the third time. Objective - Constitutional Vitals: Vital Signs - 12hr 12/29/19 12/29/19 12/29/19 01:55 06:22 06:29 Temperature 97.7 F Pulse Rate 56 L Respiratory 16 17 16 Rate Blood Pressure 122/63 [Left] O2 Sat by Pulse 97 Oximetry General appearance: Present: mild distress, well-nourished - EENT Eyes: PERRL, EOM intact ENT: hearing intact, clear oral mucosa Ears: bilateral: normal - Neck Neck: supple, normal ROM - Respiratory Respiratory effort: normal Respiratory: bilateral: CTA - Breasts Breasts: normal - Cardiovascular Rhythm: regular Heart Sounds: Present: S1 & S2. Absent: gallop, rub Extremities: pulses intact, No edema, normal color, Full ROM - Gastrointestinal General gastrointestinal: Present: soft, tender, normal bowel sounds - Genitourinary Male genitourinary: normal - Integumentary Integumentary: clear, warm, dry - Musculoskeletal Musculoskeletal: 1, strength equal bilaterally - Neurologic Neurologic: moves all extremities - Psychiatric Psychiatric: memory intact, appropriate mood/affect, intact judgment & insight - Labs CBC & Chem 7: 12/28/19 04:35 12/28/19 04:35
[2019-12-29 15:06] LABS: Alanine Aminotransferase 8 units/L (7-56); Albumin 2.3 g/dL (3.9-5); BUN/Creatinine Ratio 16; Blood Urea Nitrogen 14 mg/dL (9-20); Calcium 8.4 mg/dL (8.4-10.2); Hemolysis Index 49
--- NOTE | 2019-12-29 16:48 | Progress Note ---
Assessment and Plan I had to call and get CT report just a moment ago, patient has free air, lactic acid 4.6, will explore immediately. Subjective Date of service: 12/29/19 Objective Vital Signs - 12hr 12/29/19 12/29/19 06:22 06:29 Temperature 97.7 F Pulse Rate 56 L Respiratory 17 16 Rate Blood Pressure 122/63 [Left] O2 Sat by Pulse 97 Oximetry - Labs 12/28/19 04:35 12/29/19 14:29 Diabetes panel 12/29/19 Range/Units 14:29 Sodium 138 (137-145) mmol/L Potassium 4.0 (3.6-5.0) mmol/L Chloride 99.5 (98-107) mmol/L Carbon Dioxide 23 (22-30) mmol/L BUN 14 (9-20) mg/dL Creatinine 0.9 (0.8-1.3) mg/dL Glucose 99 (75-100) mg/dL Calcium 8.4 (8.4-10.2) mg/dL AST 19 (5-40) units/L ALT 8 (7-56) units/L Alkaline Phosphatase 98 (35-129) units/L Total Protein 4.6 L (6.3-8.2) g/dL Albumin 2.3 L (3.9-5) g/dL Calcium panel 12/29/19 Range/Units 14:29 Calcium 8.4 (8.4-10.2) mg/dL Albumin 2.3 L (3.9-5) g/dL Pituitary panel 12/29/19 Range/Units 14:29 Sodium 138 (137-145) mmol/L Potassium 4.0 (3.6-5.0) mmol/L Chloride 99.5 (98-107) mmol/L Carbon Dioxide 23 (22-30) mmol/L BUN 14 (9-20) mg/dL Creatinine 0.9 (0.8-1.3) mg/dL Glucose 99 (75-100) mg/dL Calcium 8.4 (8.4-10.2) mg/dL Adrenal panel 12/29/19 Range/Units 14:29 Sodium 138 (137-145) mmol/L Potassium 4.0 (3.6-5.0) mmol/L Chloride 99.5 (98-107) mmol/L Carbon Dioxide 23 (22-30) mmol/L BUN 14 (9-20) mg/dL Creatinine 0.9 (0.8-1.3) mg/dL Glucose 99 (75-100) mg/dL Calcium 8.4 (8.4-10.2) mg/dL Total Bilirubin 1.20 (0.1-1.2) mg/dL AST 19 (5-40) units/L ALT 8 (7-56) units/L Alkaline Phosphatase 98 (35-129) units/L Total Protein 4.6 L (6.3-8.2) g/dL Albumin 2.3 L (3.9-5) g/dL
[2019-12-29] MEDS ORDERED: PIPERACIL/TAZOBACTA 4.5/NS 100 4.5 GM/100 ML VIAL IV SCH (17:00)
--- NOTE | 2019-12-29 17:01 | Cat Scan Report ---
CT ABDOMEN AND PELVIS WITHOUT CONTRAST INDICATION: abdominal pain CONTRAST: With oral, without IV COMPARISON: 12/27/[address] scans at this location are performed using CT dose reduction for ALARA by means of automated e xposure control. FINDINGS: Multiple sclerotic areas are again seen in the bony structures, particularly in the pelvis. Lung bases are clear. There is now a moderate pneumoperitoneum distributed throughout the abdomen. There also is now modera te ascitic type fluid seen throughout the abdomen and pelvis with increased density noted, particular ly in the pelvis were density is up to 51 Hounsfield units though adjacent to the liver this measures 17 Hounsfield units in the water range. The small bowel dilatation seen previously is again noted. Small bowel loops now show prominent wall edema and there is at least a suggestion of some intramural gas in some loops. Interloop free gas is seen in some areas. No definite portal venous gas is identified. Colon is again seen to be collapsed in most areas. There appear to be distal small bowel loops collapsed as well. Prominent edema is seen throughout the abdomen and pelvis now. No definite organized collection is seen to suggest an absces s at this point. Oral contrast is seen only in dilated small bowel. 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 No other changes are seen. IMPRESSION: Markedly worsened appearance of small bowel is seen changing from the obstructive pattern 2 days ago to obstruction with prominent edema of the wall and mesentery now and free perforation. T here may also be some bowel wall necrosis. Fluid is seen in the peritoneal cavity distributed widely which includes increased density likely related to bowel contents from perforation. Discussed with Dr. Benz Signer Name: Saqib Sotomayor MD Signed: 12/29/2019 4:56 PM Workstation Name: [id number]
--- NOTE | 2019-12-29 18:12 | Anesthesia Consultation ---
Anesthesia Consult and Med Hx Date of service: 12/29/19 - Airway Anesthetic Teeth Evaluation: Good ROM Head & Neck: Adequate Mental/Hyoid Distance: Adequate Mallampati Class: Class II Intubation Access Assessment: Probably Good - Pulmonary Exam CTA: Yes - Pre-Operative Health Status ASA Pre-Surgery Classification: ASA3, Emergency Proposed Anesthetic Plan: General - Pulmonary Hx Smoking: Yes (1/4 pack per day) Hx Asthma: No COPD: No Hx Pneumonia: No - Cardiovascular System Hx Hypertension: No Hx Heart Attack/AMI: No Hx Valvular Heart Disease: No Hx Heart Murmur: No - Central Nervous System Hx Neuromuscular Disorder: No Hx Seizures: No CVA: No - Endocrine Hx Renal Disease: Yes (S/P Nephrectomy) Hx End Stage Renal Disease: No Hx Cirrhosis: No Hx Liver Disease: No Hx Insulin Dependent Diabetes: No Hx Non-Insulin Dependent Diabetes: No Hx Thyroid Disease: No - Hematic Hx Anemia: No Hx Sickle Cell Disease: No - Other Systems Hx Alcohol Use: Yes Hx Substance Use: Yes (Marijuana- last used 5 days ago) Hx Obesity: No - Additional Comments Anesthesia Medical History Comments: Denied anesthesia related complication
--- NOTE | 2019-12-29 18:14 | Anesthesia Day of Surgery ---
Anesthesia Day of Surgery - Day of Surgery Patient Examined: Yes Patient H&P Reviewed: Yes Patient is NPO: Yes Beta Blockers: No Cardiac Clearance: No Pulmonary Clearance: No
[2019-12-29] MEDS ORDERED: ONDANSETRON 4 MG/2 ML INJ ONE (18:17)
[2019-12-29] MEDS ORDERED: ROCURONIUM 50 MG/5 ML INJ IV ONE (18:17)
[2019-12-29] MEDS ORDERED: LIDOCAINE MPF (2%) 20 MG/1 ML VIAL 5 ML ONE (18:17)
[2019-12-29] MEDS ORDERED: HYDROmorphone 1 MG/1 ML INJ ONE (18:17)
[2019-12-29] MEDS ORDERED: dexAMETHasone 20 MG/5 ML VIAL ONE (18:17)
[2019-12-29] MEDS ORDERED: SUCCINYLCHOLINE CHLORIDE 200 MG/10 ML INJ MDV ONE (18:18)
[2019-12-29] MEDS ORDERED: propofoL 200 MG/20 ML VIAL IV ONE (18:18)
--- NOTE | 2019-12-29 18:21 | Event Note ---
Date: 12/29/[address] abd pelvis was done at 1230 hrs today after I spoke with Dr. Martinez about this case( after the patient pulled out his NG a second time) I recc repeating CTscan of abd and pelvis and repeat lactic acid , I checked for the report several times online, there was no report available , so at around 4:15pm so I called Radiology and they gave me the number of the Radiologist [employer], I called him and he said they were very busy, and reviewed the CT immediately and gave me the report of free air, I immediately called in the OR team, this hernandez ppened around 4:40 pm, I immediately drove in and obtained consent from the patient and contacted his Dad in [place] by phone to inform him of events. I will explore the patient as soon as possible. I have ordered Iv antibiotics, and the patient has been receiving iv fluids and been NPO.( the patient had pulled out his NG again (second time against medical advice and refused it being reinserted) He appears hemodyn stable at this time, I have also spoken with Anesthesia in person about this case. I have also explained the patient will remain intubated following surgery with an NG and villegas in be placed in the ICU.
[2019-12-29] MEDS ORDERED: LACTATED RINGERS 1,000 ML ONE ×9 (18:27→22:42)
[2019-12-29] MEDS ORDERED: LACTATED RINGERS 2,000 ML ONE (19:57)
--- NOTE | 2019-12-29 21:08 | Procedure Note ---
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 Skin packed open with betadine kerlex roll. Op findings- extensive radiation changes expecially prominent in right kidney bed secondary to radiation. extensive changes in mesentery of small bowel/ diffuse and throughout.
--- NOTE | 2019-12-29 21:08 | Event Note ---
Date: 12/29/19 Informed by surgery- about the abdominal surgery and partial small bowel resection secondary to scarring from radiation. Patient may need pressors and to continue vent support. Patient to go for surgery again tomorrow at 10:00 for a second look at the remaining small intestines. Prognosis guarded Interventional Radiology Rn consult requested
--- NOTE | 2019-12-29 21:11 | Event Note ---
Date: 12/29/19 I have spoken with Hospitalist/ Dr. Dawkins and plan is to place patient in ICU, [employer] consulted.
[2019-12-29] MEDS ORDERED: ALBUMIN HUMAN 25% (25 GM/100 ML) INJ IV ONE (21:26)
[2019-12-29] MEDS ORDERED: MIDAZOLAM 2 MG/2 ML INJ ONE (21:44)
[2019-12-29 22:19] LABS: ABG Base Excess -3.5 mmol/L (-2.0-3.0); ABG HCO3 21.4 mmol/L (20.0-26.0); ABG Methemoglobin 0.7 % (0.0-1.5); ABG Oxygen Saturation 82.6 % (95.0-99.0); ABG PCO2 38.6 mm Hg; ABG PH 7.363 pH Units (7.350-7.450); ABG PO2 46.8 mm Hg (80.0-90.0)
[2019-12-29] MEDS ORDERED: LIP THERAPY VASELINE TP PRN (22:33)
[2019-12-29] MEDS ORDERED: MINERAL OIL/PETROLATUM, WHITE OPHTH OINT 3.5 GM OU PRN ×2 (22:33→23:27)
--- NOTE | 2019-12-29 22:38 | XRay Report ---
CHEST 1 VIEW 12/29/2019 9:34 PM INDICATION / CLINICAL INFORMATION: ET TUBE PLACEMENT. COMPARISON: None available. FINDINGS: SUPPORT DEVICES: The ET tube tip is about 5 cm above the juan c. NG tube is seen extending below the diaphragm. HEART / MEDIASTINUM: No significant abnormality. LUNGS / PLEURA: No significant pulmonary or pleural abnormality. No pneumothorax. ADDITIONAL FINDINGS: No significant additional findings. IMPRESSION: 1. Endotracheal tube in expected position. Signer Name: Josesito Rouse MD Signed: 12/29/2019 10:33 PM Workstation Name: [id number]
[2019-12-29] MEDS ORDERED: LACTATED RINGERS 1,000 ML IV ONE ×3 (22:46→22:48)
--- NOTE | 2019-12-29 23:07 | Post Anesthesia Evaluation ---
- Post Anesthesia Evaluation Patient Participated: No Airway Patent: Yes Stable Respiratory Function: No (Intubated) Nausea/Vomiting: No Temp > 96.8F: Yes Pain Manageable: Yes Adequeate Hydration: Yes Anesthesia Complications: No Block Receding Appropriately: Not Applicable Patient on Ventilator: Yes
[2019-12-29 23:10] LABS: Alanine Aminotransferase 6 units/L (7-56); Albumin 1.6 g/dL (3.9-5); BUN/Creatinine Ratio 15; Blood Urea Nitrogen 16 mg/dL (9-20); Calcium 6.9 mg/dL (8.4-10.2); Hemolysis Index 5
[2019-12-30] MEDS: PIPERACIL/TAZOBACTA 4.5/NS 100 4.5 GM/100 ML VIAL IV SCH ×4 (00:33→22:01)
[2019-12-30] MEDS: fentaNYL 100 MCG/2 ML INJ IV PRN ×4 (00:33→23:00)
[2019-12-30] MEDS: FAMOTIDINE 20 MG/2 ML INJ IV SCH ×3 (00:46→22:09)
[2019-12-30] MEDS: HYDROmorphone 1 MG/1 ML INJ IV PRN ×2 (01:43→05:32)
[2019-12-30] MEDS: SODIUM CHLORIDE 0.9% 1000 ML 1,000 ML IV SCH ×2 (03:02→19:44)
[2019-12-30] MEDS ORDERED: LACTATED RINGERS 2,000 ML IV SCH (04:00)
[2019-12-30 05:06] LABS: Hematocrit 45.1 % (35.5-45.6); Hemoglobin 15.3 gm/dl (11.8-15.2); Mean Corpuscular HGB Conc 34 % (32-34); Mean Corpuscular Volume 88 fl (84-94); Platelet Count 124 K/mm3 (140-440); Red Blood Count 5.12 M/mm3 (3.65-5.03); Red Cell Distribution Width 14.9 % (13.2-15.2)
[2019-12-30 05:26] LABS: BUN/Creatinine Ratio 15; Blood Urea Nitrogen 17 mg/dL (9-20); Hemolysis Index 20
[2019-12-30] MEDS: LACTATED RINGERS 1,000 ML IV SCH ×4 (08:15→13:05)
[2019-12-30] MEDS: ALBUMIN HUMAN 25% (25 GM/100 ML) INJ IV SCH ×3 (08:50→22:09)
[2019-12-30] MEDS ORDERED: MAGNESIUM SULFATE 4 GM/100 ML BAG IV ONE (09:00)
--- NOTE | 2019-12-30 09:34 | XRay Report ---
CHEST 1 VIEW INDICATION / CLINICAL INFORMATION: follow up respiratory failure. COMPARISON: 12/29/2019 FINDINGS: SUPPORT DEVICES: ET tube and NG tube are in stable position. HEART / MEDIASTINUM: Stable. LUNGS / PLEURA: Interval development of mild pulmonary opacity diffusely throughout the left lung fie ld. The left costophrenic angle is obscured. No pneumothorax. ADDITIONAL FINDINGS: No significant additional findings. IMPRESSION: 1. Interval development of mild pulmonary opacity diffusely throughout the left lung field. 2. Suspected small left-sided pleural effusion. 3. ET tube and NG tube are in stable positions. Signer Name: Ashok Victor MD Signed: 12/30/2019 9:30 AM Workstation Name: [id number]
--- NOTE | 2019-12-30 10:01 | Consultation ---
History of Present Illness Consult date: 12/30/19 Requesting physician: MANI EM Reason for consult: other (Post OP management) History of present illness: 39 y/o male, from [place], admitted with abdominal pain. Found to have perforated viscous and taken to OR for Ex-lap. Patient with prior history of Wilms tumor s/p nephrectomy with radiation. Spoke with surgery and reviewed notes. Difficult situation given abnormal anatomy from radiation changes. Going back to OR today for second and final look. Patient is awake and alert. Severely dehydrated but with normal renal function. Poor albumin levels as well. Remainder is negative. Past History Past Medical History: other (Wilms tumor s/p nephrectomry and radiation) Past Surgical History: Other (hx of right nephrectomy and adjunctive therapy) Social history: no significant social history Family history: no significant family history Medications and Allergies Allergies Allergy/AdvReac Type Severity Reaction Status Date / Time No Known Allergies Allergy Unverified 12/27/19 11:57 Active Meds: Active Medications Acetaminophen (Tylenol) 650 mg PO Q4H PRN PRN Reason: Pain MILD(1-3)/Fever >100.5/LAZCANO Albumin Human (Alburx 25% (Albumin)) 25 gm IV Q8HR SUSAN Stop: 12/31/19 10:00 Last Admin: 12/30/19 08:50 Dose: 25 gm Documented by: Famotidine (Pepcid) 20 mg IV BID SUSAN Last Admin: 12/30/19 09:01 Dose: 20 mg Documented by: Fentanyl (Sublimaze) 50 mcg IV Q2HR PRN PRN Reason: PAIN Last Admin: 12/30/19 08:52 Dose: 50 mcg Documented by: Hydromorphone HCl (Dilaudid) 1 mg IV Q3H PRN PRN Reason: Pain , Severe (7-10) Last Admin: 12/30/19 05:32 Dose: 1 mg Documented by: Hydrophilic Ointment (Vaseline Lip Therapy) 1 applic TP Q2HR PRN PRN Reason: Dry Lips Sodium Chloride (Nacl 0.9% 1000 Ml) 1,000 mls @ 100 mls/hr IV DIRECT SUSAN Last Admin: 12/30/19 03:02 Dose: 150 mls/hr Documented by: Piperacillin Sod/Tazobactam Sod (Zosyn/Ns 4.5gm/100ml) 4.5 gm in 100 mls @ 200 mls/hr IV Q8HR SUSAN; Protocol Last Admin: 12/30/19 06:47 Dose: 200 mls/hr Documented by: Propofol (Diprivan 10 Mg/Ml) 1,000 mg in 100 mls @ 2.245 mls/hr IV TITR SUSAN Last Admin: 12/30/19 08:14 Dose: 5 mcg/kg/min, 2.245 mls/hr Documented by: Lactated Ringer's (Lactated Ringers) 1,000 mls @ 1,000 mls/hr IV DIRECT SUSAN Stop: 01/02/20 08:59 Last Admin: 12/30/19 09:13 Dose: 1,000 mls/hr Documented by: Magnesium Sulfate (Magnesium Sulfate 4gm/100ml) 4 gm in 100 mls @ 25 mls/hr IV ONCE ONE Stop: 12/30/19 12:59 Last Admin: 12/30/19 08:51 Dose: 25 mls/hr Documented by: Lorazepam (Ativan) 1 mg IV Q4H PRN PRN Reason: Agitation Morphine Sulfate (Morphine) 2 mg IV Q4H PRN PRN Reason: Pain, Moderate (4-6) Last Admin: 12/29/19 01:25 Dose: 2 mg Documented by: Multi-Ingred Cream/Lotion/Oil/Oint (Artificial Tears Ophth Oint) 1 applic OU Q4HR PRN PRN Reason: Dry Eye(s) Ondansetron HCl (Zofran) 4 mg IV Q3H PRN PRN Reason: Nausea And Vomiting Last Admin: 12/29/19 12:31 Dose: 4 mg Documented by: Sodium Chloride (Sodium Chloride Flush Syringe 10 Ml) 10 ml IV BID SUSAN Last Admin: 12/29/19 10:40 Dose: 10 ml Documented by: Sodium Chloride (Sodium Chloride Flush Syringe 10 Ml) 10 ml IV PRN PRN PRN Reason: LINE FLUSH Last Admin: 12/29/19 10:40 Dose: 10 ml Documented by: Review of Systems ROS unobtainable: due to endotracheal tube Physical Examination Vital signs: Vital Signs Temp Pulse Resp BP Pulse Ox 98.3 F 58 L 22 140/90 98 12/27/19 11:52 12/27/19 11:52 12/27/19 11:52 12/27/19 11:52 12/27/19 11:52 General appearance: alert, appears uncomfortable Eyes: non-icteric ENT: other (orally intubated and sedated) Effort: normal Ascultation: Bilateral: clear Percussion: Bilateral: not dull Extremities: no edema, pink and warm, pulses normal Musculoskeletal: no deformities normal mental status, non-focal exam mood appropriate Results - Laboratory Findings CBC and BMP: 12/30/19 04:40 12/30/19 04:40 ABG ABG pH 7.359 (7.320-7.450) 12/30/19 03:15 POC ABG pCO2 40.9 mmHg (32.0-48.0) 12/30/19 03:15 ABG pCO2 38.6 mm Hg 12/29/19 22:05 POC ABG pO2 225.8 mmHg (83-108) H 12/30/19 03:15 ABG pO2 46.8 mm Hg (80.0-90.0) L 12/29/19 22:05 POC ABG HCO3 22.5 12/30/19 03:15 ABG O2 Saturation 82.6 % (95.0-99.0) L 12/29/19 22:05 Abnormal lab findings: Abnormal Labs 12/27/19 12/27/19 12/27/19 12:39 12:39 17:14 WBC RBC 6.38 H Hgb 18.9 H Hct 55.5 H Plt Count Lymph # (Auto) Seg Neutrophils % Seg Neuts % (Manual) 90.0 H Lymphocytes % (Manual) 5.0 L Seg Neutrophils # Man 8.2 H Lymphocytes # (Manual) 0.5 L POC ABG pO2 ABG pO2 ABG O2 Saturation ABG Base Excess Oxyhemoglobin Carbon Dioxide BUN 7 L Glucose 109 H Lactic Acid 2.40 H* Calcium Phosphorus Magnesium ALT Alkaline Phosphatase 140 H Total Protein 5.9 L Albumin 3.4 L Lipase Ur Specific [place] 12/27/19 12/27/19 12/28/19 19:07 Unknown 04:35 WBC RBC 5.63 H Hgb 16.5 H Hct 49.5 H D Plt Count Lymph # (Auto) 0.9 L Seg Neutrophils % 78.8 H Seg Neuts % (Manual) Lymphocytes % (Manual) Seg Neutrophils # Man Lymphocytes # (Manual) POC ABG pO2 ABG pO2 ABG O2 Saturation ABG Base Excess Oxyhemoglobin Carbon Dioxide BUN Glucose Lactic Acid 2.10 H* Calcium Phosphorus Magnesium ALT Alkaline Phosphatase Total Protein Albumin Lipase Ur Specific [place] > 1.059 H 12/28/19 12/29/19 12/29/19 04:35 14:29 14:29 WBC RBC Hgb Hct Plt Count Lymph # (Auto) Seg Neutrophils % Seg Neuts % (Manual) Lymphocytes % (Manual) Seg Neutrophils # Man Lymphocytes # (Manual) POC ABG pO2 ABG pO2 ABG O2 Saturation ABG Base Excess Oxyhemoglobin Carbon Dioxide BUN Glucose Lactic Acid 4.60 H* Calcium Phosphorus Magnesium ALT Alkaline Phosphatase Total Protein 5.1 L Albumin 2.9 L Lipase 9 L Ur Specific [place] 12/29/19 12/29/19 12/29/19 14:29 22:05 22:40 WBC RBC Hgb Hct Plt Count Lymph # (Auto) Seg Neutrophils % Seg Neuts % (Manual) Lymphocytes % (Manual) Seg Neutrophils # Man Lymphocytes # (Manual) POC ABG pO2 ABG pO2 46.8 L ABG O2 Saturation 82.6 L ABG Base Excess -3.5 L Oxyhemoglobin 81.0 L Carbon Dioxide BUN Glucose 115 H Lactic Acid Calcium 6.9 L D Phosphorus Magnesium ALT 6 L Alkaline Phosphatase 33 L Total Protein 4.6 L 2.2 L D Albumin 2.3 L 1.6 L Lipase Ur Specific [place] 12/29/19 12/30/19 12/30/19 22:40 03:15 04:40 WBC RBC Hgb Hct Plt Count Lymph # (Auto) Seg Neutrophils % Seg Neuts % (Manual) Lymphocytes % (Manual) Seg Neutrophils # Man Lymphocytes # (Manual) POC ABG pO2 225.8 H ABG pO2 ABG O2 Saturation ABG Base Excess Oxyhemoglobin Carbon Dioxide BUN Glucose Lactic Acid 4.20 H* 3.60 H* Calcium Phosphorus Magnesium ALT Alkaline Phosphatase Total Protein Albumin Lipase Ur Specific [place] 12/30/19 12/30/19 04:40 04:40 WBC 2.0 L RBC 5.12 H Hgb 15.3 H Hct Plt Count 124 L Lymph # (Auto) Seg Neutrophils % Seg Neuts % (Manual) Lymphocytes % (Manual) Seg Neutrophils # Man Lymphocytes # (Manual) POC ABG pO2 ABG pO2 ABG O2 Saturation ABG Base Excess Oxyhemoglobin Carbon Dioxide 21 L BUN Glucose Lactic Acid Calcium 7.0 L Phosphorus 4.90 H Magnesium 1.40 L ALT Alkaline Phosphatase Total Protein Albumin Lipase Ur Specific [place] - Diagnostic Findings Chest x-ray: image reviewed Assessment and Plan 39 y/o male with SBO and now perforated bowel s/p ex lap, going back to OR for second look today. 1. Continue aggressive IV hydration 2. Added albumin for the next 24 hours to see if this will help with bowel edema 3. Continue villegas and NG tube 4. WIll need picc line and TPN post op 5. Hopeful to extubate today post operatively 6. Agree with current abx regimen. CCT 31 minutes.
--- NOTE | 2019-12-30 10:14 | Event Note ---
Date: 12/30/19 Consent obtained from father by phone.
--- NOTE | 2019-12-30 10:22 | Progress Note ---
Assessment and Plan - Patient Problems (1) DVT prophylaxis Current Visit: Yes Status: Acute Plan to address problem: Continue compression device. (2) Dehydration Current Visit: Yes Status: Resolved (3) Small bowel obstruction Current Visit: Yes Status: Acute Plan to address problem: Patient status post exploratory laparotomy with bowel resection. Discussion about significance of the amount of bile resected with surgeon. Also concerned about further stenosis and inflammation given history of radiation. Present tolerated initial procedure well. Intubated resting comfortably scheduled for an additional procedure today. Electrolytes follow-up labs stable. Patient is afebrile no evidence of infection. (4) Metabolic acidosis Current Visit: Yes Status: Acute Plan to address problem: Has improved from 4.6-3. Post surgery. Subjective Date of service: 12/30/19 Principal diagnosis: Abdominal pain small bowel obstruction Interval history: Foolow up CT scan yesterday showed free air with lactic acidosis. Spoke with Dr. Zabala patient was cleared for emergent surgery. Patient today stable status post exploratory lap with bowel resection. Spoke with surgery and treating plant operator about consultation and options. Plan is to have patient go back to surgery today for an additional look for free air ischemic bowel. Plan will be to extubate sometimes after that. Objective - Constitutional Vitals: Vital Signs - 12hr 12/29/19 12/29/19 12/29/19 22:30 22:45 23:00 Temperature 97.0 F L Pulse Rate 108 H 104 H 107 H Pulse Rate [ From Monitor] Respiratory 20 18 21 Rate Blood Pressure 108/61 104/59 100/64 O2 Sat by Pulse 100 100 100 Oximetry 12/29/19 12/29/19 12/29/19 23:11 23:15 23:19 Temperature 97.4 F L Pulse Rate 106 H Pulse Rate [ From Monitor] Respiratory Rate Blood Pressure 85/59 O2 Sat by Pulse 69 L 100 Oximetry 12/29/19 12/29/19 12/29/19 23:20 23:21 23:30 Temperature 97.4 F L Pulse Rate 108 H 117 H Pulse Rate [ From Monitor] Respiratory 18 18 Rate Blood Pressure 85/59 80/49 86/56 O2 Sat by Pulse 100 100 100 Oximetry 12/29/19 12/29/19 12/30/19 23:41 23:51 00:00 Temperature Pulse Rate 122 H 125 H Pulse Rate [ From Monitor] Respiratory 15 31 H 22 Rate Blood Pressure 53/34 55/28 O2 Sat by Pulse 74 L 99 Oximetry 12/30/19 12/30/19 12/30/19 00:01 00:10 00:21 Temperature Pulse Rate 118 H 120 H 116 H Pulse Rate [ From Monitor] Respiratory 24 26 H 31 H Rate Blood Pressure 43/25 90/53 50/34 O2 Sat by Pulse 91 97 Oximetry 12/30/19 12/30/19 12/30/19 00:31 00:40 00:51 Temperature Pulse Rate 115 H 105 H 110 H Pulse Rate [ From Monitor] Respiratory 33 H 17 16 Rate Blood Pressure 96/79 99/57 105/74 O2 Sat by Pulse 100 100 100 Oximetry 12/30/19 12/30/19 12/30/19 01:00 01:11 01:20 Temperature Pulse Rate 113 H 112 H 97 H Pulse Rate [ From Monitor] Respiratory 22 17 18 Rate Blood Pressure 109/61 99/67 98/63 O2 Sat by Pulse 94 100 100 Oximetry 12/30/19 12/30/19 12/30/19 01:31 01:40 01:51 Temperature Pulse Rate 118 H 119 H 118 H Pulse Rate [ From Monitor] Respiratory 21 20 23 Rate Blood Pressure 105/72 98/65 93/60 O2 Sat by Pulse 89 100 100 Oximetry 12/30/19 12/30/19 12/30/19 02:00 02:10 02:20 Temperature Pulse Rate 101 H 98 H 97 H Pulse Rate [ From Monitor] Respiratory 17 18 17 Rate Blood Pressure 103/67 104/65 103/63 O2 Sat by Pulse 100 100 100 Oximetry 12/30/19 12/30/19 12/30/19 02:30 02:40 02:50 Temperature Pulse Rate 96 H 97 H 97 H Pulse Rate [ From Monitor] Respiratory 17 18 19 Rate Blood Pressure 97/64 100/63 98/62 O2 Sat by Pulse 100 100 100 Oximetry 12/30/19 12/30/19 12/30/19 03:00 03:10 03:16 Temperature Pulse Rate 101 H 103 H 106 H Pulse Rate [ From Monitor] Respiratory 18 18 Rate Blood Pressure 102/63 89/59 99/60 O2 Sat by Pulse 100 99 99 Oximetry 12/30/19 12/30/19 12/30/19 03:20 03:30 03:40 Temperature Pulse Rate 108 H 106 H 110 H Pulse Rate [ From Monitor] Respiratory 12 18 16 Rate Blood Pressure 99/60 89/57 96/59 O2 Sat by Pulse 99 98 99 Oximetry 12/30/19 12/30/19 12/30/19 03:51 04:00 04:10 Temperature 96.4 F L Pulse Rate 130 H 141 H 117 H Pulse Rate [ From Monitor] Respiratory 18 25 H 16 Rate Blood Pressure 130/108 86/54 99/69 O2 Sat by Pulse Oximetry 12/30/19 12/30/19 12/30/19 04:20 04:30 04:41 Temperature Pulse Rate 120 H 112 H 118 H Pulse Rate [ From Monitor] Respiratory 16 20 20 Rate Blood Pressure 104/57 87/63 85/59 O2 Sat by Pulse Oximetry 12/30/19 12/30/19 12/30/19 04:47 04:51 05:00 Temperature Pulse Rate 127 H 116 H Pulse Rate [ 118 H From Monitor] Respiratory 22 16 18 Rate Blood Pressure 90/69 92/58 O2 Sat by Pulse 99 100 100 Oximetry 12/30/19 12/30/19 12/30/19 05:11 05:21 05:30 Temperature Pulse Rate 153 H 152 H 133 H Pulse Rate [ From Monitor] Respiratory 28 H 25 H 19 Rate Blood Pressure 58/42 84/47 92/65 O2 Sat by Pulse 99 88 92 Oximetry 12/30/19 12/30/19 12/30/19 05:40 05:51 06:00 Temperature Pulse Rate 113 H 106 H 105 H Pulse Rate [ From Monitor] Respiratory 16 20 22 Rate Blood Pressure 87/59 90/63 105/69 O2 Sat by Pulse 100 Oximetry 12/30/19 12/30/19 12/30/19 06:11 06:21 06:31 Temperature Pulse Rate 116 H 134 H 139 H Pulse Rate [ From Monitor] Respiratory 22 21 27 H Rate Blood Pressure 105/69 93/65 93/65 O2 Sat by Pulse 100 96 Oximetry 12/30/19 12/30/19 12/30/19 06:41 06:51 07:00 Temperature Pulse Rate 129 H 119 H 119 H Pulse Rate [ From Monitor] Respiratory 23 27 H 20 Rate Blood Pressure 93/65 97/64 95/71 O2 Sat by Pulse 100 100 100 Oximetry 12/30/19 12/30/19 12/30/19 07:11 07:21 07:30 Temperature Pulse Rate 123 H 123 H 117 H Pulse Rate [ From Monitor] Respiratory 26 H 19 16 Rate Blood Pressure 95/71 87/63 108/74 O2 Sat by Pulse 100 100 99 Oximetry 12/30/19 12/30/19 12/30/19 07:41 07:51 08:00 Temperature 98.3 F Pulse Rate 116 H 113 H 118 H Pulse Rate [ 122 H From Monitor] Respiratory 17 18 28 H Rate Blood Pressure 108/74 105/66 111/73 O2 Sat by Pulse 99 100 100 Oximetry 12/30/19 12/30/19 08:11 08:21 Temperature Pulse Rate 117 H 116 H Pulse Rate [ From Monitor] Respiratory 31 H 18 Rate Blood Pressure 111/73 100/68 O2 Sat by Pulse 100 100 Oximetry General appearance: Present: no acute distress, other (Extubated comfortable no pressors.) - Respiratory Respiratory effort: normal Respiratory: bilateral: CTA - Cardiovascular Rhythm: regular Heart Sounds: Present: S1 & S2. Absent: gallop, rub Extremities: pulses intact, No edema, normal color, Full ROM - Gastrointestinal General gastrointestinal: Present: other (Surgical bandage not examined) - Neurologic Neurologic: other (Intubated sedated) - Labs CBC & Chem 7: 12/30/19 04:40 12/30/19 04:40 Labs: Abnormal lab results 12/29/19 12/29/19 12/29/19 Range/Units 14:29 14:29 14:29 WBC (4.5-11.0) K/mm3 RBC (3.65-5.03) M/mm3 Hgb (11.8-15.2) gm/dl Plt Count (140-440) K/mm3 POC ABG pO2 (83-108) mmHg ABG pO2 (80.0-90.0) mm Hg ABG O2 Saturation (95.0-99.0) % ABG Base Excess (-2.0-3.0) mmol/L Oxyhemoglobin (95.0-99.0) % Carbon Dioxide (22-30) mmol/L Glucose (75-100) mg/dL Lactic Acid 4.60 H* (0.7-2.0) mmol/L Calcium (8.4-10.2) mg/dL Phosphorus (2.5-4.5) mg/dL Magnesium (1.7-2.3) mg/dL ALT (7-56) units/L Alkaline Phosphatase (35-129) units/L Total Protein 4.6 L (6.3-8.2) g/dL Albumin 2.3 L (3.9-5) g/dL Lipase 9 L (13-60) units/L 12/29/19 12/29/19 12/29/19 Range/Units 22:05 22:40 22:40 WBC (4.5-11.0) K/mm3 RBC (3.65-5.03) M/mm3 Hgb (11.8-15.2) gm/dl Plt Count (140-440) K/mm3 POC ABG pO2 (83-108) mmHg ABG pO2 46.8 L (80.0-90.0) mm Hg ABG O2 Saturation 82.6 L (95.0-99.0) % ABG Base Excess -3.5 L (-2.0-3.0) mmol/L Oxyhemoglobin 81.0 L (95.0-99.0) % Carbon Dioxide (22-30) mmol/L Glucose 115 H (75-100) mg/dL Lactic Acid 4.20 H* (0.7-2.0) mmol/L Calcium 6.9 L D (8.4-10.2) mg/dL Phosphorus (2.5-4.5) mg/dL Magnesium (1.7-2.3) mg/dL ALT 6 L (7-56) units/L Alkaline Phosphatase 33 L (35-129) units/L Total Protein 2.2 L D (6.3-8.2) g/dL Albumin 1.6 L (3.9-5) g/dL Lipase (13-60) units/L 12/30/19 12/30/19 12/30/19 Range/Units 03:15 04:40 04:40 WBC 2.0 L (4.5-11.0) K/mm3 RBC 5.12 H (3.65-5.03) M/mm3 Hgb 15.3 H (11.8-15.2) gm/dl Plt Count 124 L (140-440) K/mm3 POC ABG pO2 225.8 H (83-108) mmHg ABG pO2 (80.0-90.0) mm Hg ABG O2 Saturation (95.0-99.0) % ABG Base Excess (-2.0-3.0) mmol/L Oxyhemoglobin (95.0-99.0) % Carbon Dioxide (22-30) mmol/L Glucose (75-100) mg/dL Lactic Acid 3.60 H* (0.7-2.0) mmol/L Calcium (8.4-10.2) mg/dL Phosphorus (2.5-4.5) mg/dL Magnesium (1.7-2.3) mg/dL ALT (7-56) units/L Alkaline Phosphatase (35-129) units/L Total Protein (6.3-8.2) g/dL Albumin (3.9-5) g/dL Lipase (13-60) units/L 12/30/19 Range/Units 04:40 WBC (4.5-11.0) K/mm3 RBC (3.65-5.03) M/mm3 Hgb (11.8-15.2) gm/dl Plt Count (140-440) K/mm3 POC ABG pO2 (83-108) mmHg ABG pO2 (80.0-90.0) mm Hg ABG O2 Saturation (95.0-99.0) % ABG Base Excess (-2.0-3.0) mmol/L Oxyhemoglobin (95.0-99.0) % Carbon Dioxide 21 L (22-30) mmol/L Glucose (75-100) mg/dL Lactic Acid (0.7-2.0) mmol/L Calcium 7.0 L (8.4-10.2) mg/dL Phosphorus 4.90 H (2.5-4.5) mg/dL Magnesium 1.40 L (1.7-2.3) mg/dL ALT (7-56) units/L Alkaline Phosphatase (35-129) units/L Total Protein (6.3-8.2) g/dL Albumin (3.9-5) g/dL Lipase (13-60) units/L - Imaging and cardiology Chest x-ray: image reviewed CT scan - pelvis: report reviewed
--- NOTE | 2019-12-30 10:29 | Anesthesia Consultation ---
Anesthesia Consult and Med Hx Date of service: 12/30/19 - Airway Anesthetic Teeth Evaluation: Good ROM Head & Neck: Adequate Mental/Hyoid Distance: Adequate Mallampati Class: Class II Intubation Access Assessment: Probably Good - Pre-Operative Health Status ASA Pre-Surgery Classification: ASA3, Emergency Proposed Anesthetic Plan: General - Pulmonary Hx Smoking: Yes (1/4 pack per day) Hx Asthma: No Hx Respiratory Symptoms: No SOB: No COPD: No Home Oxygen Therapy: No Hx Pneumonia: No Hx Sleep Apnea: No - Cardiovascular System Hx Hypertension: No Hx Coronary Artery Disease: No Hx Heart Attack/AMI: No Hx Angina: No Hx Percutaneous Transluminal Coronary Angioplasty (PTCA): No Hx Cardia Arrhythmia: No Hx Pacemaker: No Hx Internal Defibrillator: No Hx Valvular Heart Disease: No Hx Heart Murmur: No Hx Peripheral Vascular Disease: No - Central Nervous System Hx Neuromuscular Disorder: No Hx Seizures: No CVA: No Hx Back Pain: No Hx Psychiatric Problems: No - Gastrointestinal Hx Ulcer: No Hx Gastroesophageal Reflux Disease: No - Endocrine Hx Renal Disease: Yes (S/P Nephrectomy Right) Hx End Stage Renal Disease: No Hx Cirrhosis: No Hx Liver Disease: No Hx Insulin Dependent Diabetes: No Hx Non-Insulin Dependent Diabetes: No Hx Thyroid Disease: No Hx Hypothyroidism: No Hx Hyperthyroidism: No - Hematic Hx Anemia: No Hx Sickle Cell Disease: No - Other Systems Hx Alcohol Use: Yes Hx Substance Use: Yes (Marijuana- last used 5 days ago) Hx Cancer: No Hx Obesity: No - Additional Comments Anesthesia Medical History Comments: S/P Appendectomy
--- NOTE | 2019-12-30 10:30 | Anesthesia Day of Surgery ---
Anesthesia Day of Surgery - Day of Surgery Patient Examined: Yes Patient H&P Reviewed: Yes Patient is NPO: Yes
[2019-12-30] MEDS ORDERED: SODIUM CHLORIDE 0.9% 500 ML 500 ML IV ONE (10:34)
[2019-12-30] MEDS ORDERED: ePHEDrine SULFATE 50 MG/1 ML INJ ONE (10:43)
[2019-12-30] MEDS ORDERED: HYDROmorphone 1 MG/1 ML INJ ONE ×2 (10:44→11:36)
[2019-12-30] MEDS ORDERED: ceFAZolin/Water 2 GM/20 ML 2 GM/20 ML SYRINGE IV ONE (11:18)
[2019-12-30] MEDS ORDERED: PHENYLEPHRINE/NS 1,000 MCG/10 ML SYRINGE (OR USE) IV ONE ×3 (11:27→11:44)
[2019-12-30] MEDS ORDERED: SODIUM CHLORIDE 0.9% IRR 1,500 ML BOTTLE IR ONE (11:30)
[2019-12-30] MEDS ORDERED: MIDAZOLAM 2 MG/2 ML INJ ONE (11:44)
[2019-12-30] MEDS ORDERED: dexAMETHasone 20 MG/5 ML VIAL ONE (11:44)
[2019-12-30] MEDS ORDERED: ONDANSETRON 4 MG/2 ML INJ ONE (11:44)
[2019-12-30] MEDS ORDERED: GLYCOPYRROLATE 0.4 MG/2 ML INJ ONE (11:45)
[2019-12-30] MEDS ORDERED: LIDOCAINE MPF (2%) 20 MG/1 ML VIAL 5 ML ONE (11:45)
[2019-12-30] MEDS ORDERED: ROCURONIUM 50 MG/5 ML INJ IV ONE (11:45)
[2019-12-30] MEDS ORDERED: NEOSTIGMINE 10MG/10 ML INJ MDV ONE (11:45)
--- NOTE | 2019-12-30 12:09 | Procedure Note ---
Date of procedure: 12/30/19 Pre-op diagnosis: ischemic bowel Post-op diagnosis: same Procedure: Exploratory laparotomy, second look, resection of ischemic small intestine /mid jejunum, measured remaining small bowel - 1 1/2 feet proximal jejunum, around 1 1/2 more distal jejunum which appeared dusky and marginal in viability/ but was preserved for now for purpose of bowel preservation, resection of distal termial illeum and portion of cecum. Colon appeared viable, stomach and duodenum viable. Will perform third look in 24 hours. I called Pharmacy last night and was informed there in no iv fluroscein available, and there in no Zamarripa lamp according to OR circ nurse. There I relied on visual inspection and examination for bowel viablity. Wash out. Anesthesia: GETRoopa Surgeon: MANI EM Course Developer: LUIS SOTELO Estimated blood loss: minimal Pathology: list (portions of jejunum, distal illeum, portion of cecum.) Specimen disposition: to lab Condition: critical Disposition: ICU
[2019-12-30] MEDS ORDERED: ATROPINE 0.1% (1 MG/10 ML) CARDIAC SYRINGE ONE (12:35)
--- NOTE | 2019-12-30 12:54 | Post Anesthesia Evaluation ---
- Post Anesthesia Evaluation Patient Participated: Yes Airway Patent: Yes Stable Respiratory Function: Yes Nausea/Vomiting: No Temp > 96.8F: Yes Pain Manageable: Yes Adequeate Hydration: Yes Anesthesia Complications: No Block Receding Appropriately: Not Applicable Patient on Ventilator: Yes Other Comments: pt transferred to FACILITY WORK[facility]. He remains vented and stable.
[2019-12-30 23:09] LABS: INR 2.53 (0.87-1.13)
[2019-12-30 23:10] LABS: Partial Thromboplastin Time 42.2 Sec. (24.2-36.6)
[2019-12-31] MEDS: MORPHINE 2 MG/1 ML INJ IV PRN (00:05)
[2019-12-31] MEDS: fentaNYL 100 MCG/2 ML INJ IV PRN ×3 (02:06→10:41)
[2019-12-31] MEDS: LORazepam 2 MG/ML VIAL IV PRN (02:10)
--- NOTE | 2019-12-31 02:47 | XRay Report ---
CHEST 1 VIEW 12/31/2019 2:33 AM INDICATION / CLINICAL INFORMATION: follow up respiratory failure. COMPARISON: 12/30/2019 FINDINGS: SUPPORT DEVICES: Right upper extremity PICC has been placed with tip projecting over the superior cav oatrial junction. Other lines and tubes appear stable. HEART / MEDIASTINUM: Stable. LUNGS / PLEURA: Stable layering left pleural effusion and bilateral perihilar opacities. No pneumotho rax. ADDITIONAL FINDINGS: No significant additional findings. IMPRESSION: 1. No adverse change from prior. 2. Interval placement of right upper extremity PICC. Signer Name: Josesito Rouse MD Signed: 12/31/2019 2:43 AM Workstation Name: [id number]
[2019-12-31] MEDS: SODIUM CHLORIDE 0.9% 1000 ML 1,000 ML IV SCH ×2 (05:16→19:25)
[2019-12-31] MEDS: ALBUMIN HUMAN 25% (25 GM/100 ML) INJ IV SCH (05:16)
[2019-12-31] MEDS: PIPERACIL/TAZOBACTA 4.5/NS 100 4.5 GM/100 ML VIAL IV SCH ×3 (05:16→21:15)
[2019-12-31] MEDS ORDERED: PHYTONADIONE IV ONE (06:02)
[2019-12-31] MEDS ORDERED: SODIUM CHLORIDE 0.9% IV ONE (06:02)
[2019-12-31] MEDS ORDERED: SODIUM CHLORIDE 0.9% 500 ML 500 ML IV ONE (06:04)
--- NOTE | 2019-12-31 06:10 | Event Note ---
Date: 12/31/19 Hemodyn stable, lactic acid now normal x 2, coags elevated, will give 1 mgm vit K, and 2 units FFP before OR.
--- NOTE | 2019-12-31 08:50 | Progress Note ---
Assessment and Plan 39 y/o male with SBO and now perforated bowel s/p ex lap, going back to OR for third look today. 1. Hydrated appropriately, will speak to surgery but likely will go ahead an order TPN. 2. Added albumin to help with bowel edema, will speak with surgeon to see if it helped. 3. Continue villegas and NG tube 4. Picc line in place, likely will need TPN 5. Hopeful to extubate today post operatively, will speak with surgery post-op 6. Agree with current abx regimen. CCT 31 minutes. Subjective Date of service: 12/31/19 Principal diagnosis: Abdominal pain small bowel obstruction Interval history: Unfortunately, surgery has to take another look today. Not sure what time they are going back to the OR. Hemodynamics remain stable. Urine output is good. ABG is good and CXR is stable. INR was elevated. Surgeon has ordered FFP and Vitamin k. Objective Vital Signs - 12hr 12/30/19 12/30/19 12/30/19 20:50 21:00 21:10 Temperature Pulse Rate 90 91 H 93 H Pulse Rate [ From Monitor] Respiratory 19 19 18 Rate Blood Pressure 103/71 104/72 104/70 O2 Sat by Pulse 100 100 100 Oximetry 12/30/19 12/30/19 12/30/19 21:20 21:30 21:45 Temperature Pulse Rate 101 H 96 H 104 H Pulse Rate [ From Monitor] Respiratory 22 21 22 Rate Blood Pressure 96/68 105/68 107/69 O2 Sat by Pulse 100 99 100 Oximetry 12/30/19 12/30/19 12/30/19 22:00 22:15 22:30 Temperature Pulse Rate 100 H 104 H 105 H Pulse Rate [ From Monitor] Respiratory 25 H 22 23 Rate Blood Pressure 106/69 103/65 105/71 O2 Sat by Pulse 99 100 100 Oximetry 12/30/19 12/30/19 12/30/19 22:48 23:00 23:15 Temperature Pulse Rate 117 H 104 H 91 H Pulse Rate [ From Monitor] Respiratory 23 18 17 Rate Blood Pressure 93/75 106/67 O2 Sat by Pulse 99 100 100 Oximetry 12/30/19 12/30/19 12/30/19 23:23 23:30 23:45 Temperature Pulse Rate 96 H 97 H 95 H Pulse Rate [ From Monitor] Respiratory 21 18 18 Rate Blood Pressure 109/62 101/68 107/70 O2 Sat by Pulse 100 99 100 Oximetry 12/31/19 12/31/19 12/31/19 00:00 00:05 00:15 Temperature 99.5 F Pulse Rate 90 98 H Pulse Rate [ 97 H From Monitor] Respiratory 19 19 18 Rate Blood Pressure 99/62 97/62 O2 Sat by Pulse 100 100 Oximetry 12/31/19 12/31/19 12/31/19 00:21 00:30 00:35 Temperature Pulse Rate 96 H 97 H Pulse Rate [ From Monitor] Respiratory 19 18 Rate Blood Pressure 97/62 96/64 O2 Sat by Pulse 99 100 Oximetry 12/31/19 12/31/19 12/31/19 00:45 01:00 01:15 Temperature Pulse Rate 97 H 102 H 100 H Pulse Rate [ From Monitor] Respiratory 15 17 17 Rate Blood Pressure 103/69 93/60 98/64 O2 Sat by Pulse 100 100 99 Oximetry 12/31/19 12/31/19 12/31/19 01:30 01:45 02:00 Temperature Pulse Rate 104 H 108 H 115 H Pulse Rate [ From Monitor] Respiratory 20 16 24 Rate Blood Pressure 98/61 100/58 105/60 O2 Sat by Pulse 100 100 97 Oximetry 12/31/19 12/31/19 12/31/19 02:15 02:30 02:45 Temperature Pulse Rate 109 H 114 H 110 H Pulse Rate [ From Monitor] Respiratory 21 22 19 Rate Blood Pressure 103/65 105/68 109/70 O2 Sat by Pulse 100 99 100 Oximetry 12/31/19 12/31/19 12/31/19 03:01 03:06 03:15 Temperature Pulse Rate 122 H 106 H Pulse Rate [ From Monitor] Respiratory 21 24 20 Rate Blood Pressure 126/64 109/74 O2 Sat by Pulse 100 99 Oximetry 12/31/19 12/31/19 12/31/19 03:30 03:45 04:00 Temperature 98.7 F Pulse Rate 122 H 104 H 112 H Pulse Rate [ 112 H From Monitor] Respiratory 26 H 18 24 Rate Blood Pressure 115/75 110/74 103/77 O2 Sat by Pulse 99 100 100 Oximetry 12/31/19 12/31/19 12/31/19 04:15 04:30 04:32 Temperature Pulse Rate 118 H 103 H 100 H Pulse Rate [ From Monitor] Respiratory 22 21 Rate Blood Pressure 110/79 107/75 107/75 O2 Sat by Pulse 99 100 100 Oximetry 12/31/19 12/31/19 12/31/19 04:45 05:00 05:15 Temperature Pulse Rate 113 H 105 H 118 H Pulse Rate [ From Monitor] Respiratory 24 21 24 Rate Blood Pressure 111/66 113/79 113/79 O2 Sat by Pulse 100 100 99 Oximetry 12/31/19 12/31/19 12/31/19 05:30 05:45 06:00 Temperature Pulse Rate 106 H 116 H 104 H Pulse Rate [ From Monitor] Respiratory 21 23 21 Rate Blood Pressure 113/74 113/79 115/76 O2 Sat by Pulse 100 99 100 Oximetry 12/31/19 12/31/19 12/31/19 06:15 06:30 07:00 Temperature Pulse Rate 102 H 102 H 106 H Pulse Rate [ From Monitor] Respiratory 22 21 Rate Blood Pressure 115/76 119/78 119/77 O2 Sat by Pulse 100 100 99 Oximetry 12/31/19 12/31/19 12/31/19 07:15 07:33 07:41 Temperature Pulse Rate 115 H 101 H Pulse Rate [ From Monitor] Respiratory 25 H Rate Blood Pressure 119/78 115/71 O2 Sat by Pulse 97 99 99 Oximetry 12/31/19 12/31/19 12/31/19 07:45 08:00 08:15 Temperature 97.6 F Pulse Rate 96 H 95 H 98 H Pulse Rate [ 114 H From Monitor] Respiratory 21 20 20 Rate Blood Pressure 115/71 125/81 115/71 O2 Sat by Pulse 99 99 99 Oximetry Constitutional: alert, appears uncomfortable Eyes: non-icteric ENT: other (orally intubated and sedated) Effort: normal Ascultation: Bilateral: clear Percussion: Bilateral: not dull Extremities: no edema, pink and warm, pulses normal Neurologic: normal mental status, non-focal exam Psychiatric: mood appropriate CBC and BMP: 12/30/19 04:40 12/30/19 04:40 ABG, PT/INR, D-dimer: ABG ABG pH 7.383 (7.320-7.450) 12/31/19 04:03 POC ABG pCO2 34.7 mmHg (32.0-48.0) 12/31/19 04:03 ABG pCO2 38.6 mm Hg 12/29/19 22:05 POC ABG pO2 95.1 mmHg (83-108) 12/31/19 04:03 ABG pO2 46.8 mm Hg (80.0-90.0) L 12/29/19 22:05 POC ABG HCO3 20.2 12/31/19 04:03 ABG O2 Saturation 82.6 % (95.0-99.0) L 12/29/19 22:05 PT/INR, D-dimer PT 27.6 Sec. (12.2-14.9) H 12/30/19 22:30 INR 2.53 (0.87-1.13) H 12/30/19 22:30 Abnormal lab findings: Abnormal Labs 12/27/19 12/27/19 12/27/19 12:39 12:39 17:14 WBC RBC 6.38 H Hgb 18.9 H Hct 55.5 H Plt Count Lymph # (Auto) Seg Neutrophils % Seg Neuts % (Manual) 90.0 H Lymphocytes % (Manual) 5.0 L Seg Neutrophils # Man 8.2 H Lymphocytes # (Manual) 0.5 L PT INR APTT POC ABG pO2 ABG pO2 ABG O2 Saturation ABG Base Excess ABG Hemoglobin Oxyhemoglobin Carbon Dioxide BUN 7 L Glucose 109 H Lactic Acid 2.40 H* Calcium Phosphorus Magnesium ALT Alkaline Phosphatase 140 H Total Protein 5.9 L Albumin 3.4 L Lipase Ur Specific [place] Crossmatch 12/27/19 12/27/19 12/28/19 19:07 Unknown 04:35 WBC RBC 5.63 H Hgb 16.5 H Hct 49.5 H D Plt Count Lymph # (Auto) 0.9 L Seg Neutrophils % 78.8 H Seg Neuts % (Manual) Lymphocytes % (Manual) Seg Neutrophils # Man Lymphocytes # (Manual) PT INR APTT POC ABG pO2 ABG pO2 ABG O2 Saturation ABG Base Excess ABG Hemoglobin Oxyhemoglobin Carbon Dioxide BUN Glucose Lactic Acid 2.10 H* Calcium Phosphorus Magnesium ALT Alkaline Phosphatase Total Protein Albumin Lipase Ur Specific [place] > 1.059 H Crossmatch 12/28/19 12/29/19 12/29/19 04:35 14:29 14:29 WBC RBC Hgb Hct Plt Count Lymph # (Auto) Seg Neutrophils % Seg Neuts % (Manual) Lymphocytes % (Manual) Seg Neutrophils # Man Lymphocytes # (Manual) PT INR APTT POC ABG pO2 ABG pO2 ABG O2 Saturation ABG Base Excess ABG Hemoglobin Oxyhemoglobin Carbon Dioxide BUN Glucose Lactic Acid 4.60 H* Calcium Phosphorus Magnesium ALT Alkaline Phosphatase Total Protein 5.1 L Albumin 2.9 L Lipase 9 L Ur Specific [place] Crossmatch 12/29/19 12/29/19 12/29/19 14:29 19:52 22:05 WBC RBC Hgb Hct Plt Count Lymph # (Auto) Seg Neutrophils % Seg Neuts % (Manual) Lymphocytes % (Manual) Seg Neutrophils # Man Lymphocytes # (Manual) PT INR APTT POC ABG pO2 ABG pO2 46.8 L ABG O2 Saturation 82.6 L ABG Base Excess -3.5 L ABG Hemoglobin Oxyhemoglobin 81.0 L Carbon Dioxide BUN Glucose Lactic Acid Calcium Phosphorus Magnesium ALT Alkaline Phosphatase Total Protein 4.6 L Albumin 2.3 L Lipase Ur Specific [place] Crossmatch See Detail 12/29/19 12/29/19 12/30/19 22:40 22:40 03:15 WBC RBC Hgb Hct Plt Count Lymph # (Auto) Seg Neutrophils % Seg Neuts % (Manual) Lymphocytes % (Manual) Seg Neutrophils # Man Lymphocytes # (Manual) PT INR APTT POC ABG pO2 225.8 H ABG pO2 ABG O2 Saturation ABG Base Excess ABG Hemoglobin Oxyhemoglobin Carbon Dioxide BUN Glucose 115 H Lactic Acid 4.20 H* Calcium 6.9 L D Phosphorus Magnesium ALT 6 L Alkaline Phosphatase 33 L Total Protein 2.2 L D Albumin 1.6 L Lipase Ur Specific [place] Crossmatch 12/30/19 12/30/19 12/30/19 04:40 04:40 04:40 WBC 2.0 L RBC 5.12 H Hgb 15.3 H Hct Plt Count 124 L Lymph # (Auto) Seg Neutrophils % Seg Neuts % (Manual) Lymphocytes % (Manual) Seg Neutrophils # Man Lymphocytes # (Manual) PT INR APTT POC ABG pO2 ABG pO2 ABG O2 Saturation ABG Base Excess ABG Hemoglobin Oxyhemoglobin Carbon Dioxide 21 L BUN Glucose Lactic Acid 3.60 H* Calcium 7.0 L Phosphorus 4.90 H Magnesium 1.40 L ALT Alkaline Phosphatase Total Protein Albumin Lipase Ur Specific [place] Crossmatch 12/30/19 12/31/19 22:30 04:03 WBC RBC Hgb Hct Plt Count Lymph # (Auto) Seg Neutrophils % Seg Neuts % (Manual) Lymphocytes % (Manual) Seg Neutrophils # Man Lymphocytes # (Manual) PT 27.6 H INR 2.53 H APTT 42.2 H POC ABG pO2 ABG pO2 ABG O2 Saturation ABG Base Excess ABG Hemoglobin 11.4 L Oxyhemoglobin Carbon Dioxide BUN Glucose Lactic Acid Calcium Phosphorus Magnesium ALT Alkaline Phosphatase Total Protein Albumin Lipase Ur Specific [place] Crossmatch
[2019-12-31] MEDS ORDERED: HALOPERIDOL LACTATE 5 MG/1 ML INJ IV PRN (09:19)
[2019-12-31] MEDS: FAMOTIDINE 20 MG/2 ML INJ IV SCH ×2 (10:42→21:16)
[2019-12-31] MEDS: NICOTINE 21 MG/24 HR PATCH TD SCH (10:42)
--- NOTE | 2019-12-31 11:51 | Operative Report ---
There was a delay in the dictation, because I did not have a pin number. PREOPERATIVE DIAGNOSIS: Free air, perforated viscus. POSTOPERATIVE DIAGNOSIS: Free air, perforated viscus. PROCEDURE: Exploratory laparotomy, extensive adhesiolysis, drainage of a purulent fluid, resection of a portion of the jejunum, which the entire small bowel had changes consistent with previous radiation, rather extensive. The mid portion of the jejunum was resected, appeared ischemic. It had significant desmoplastic reaction, probably from radiation changes with shortened and contracted mesentery. The bowels had spaghetti-like pattern and appeared ischemic with rock hard adhesions involving all of the involved loops. I did a resection of the terminal ileum where I found the area of the perforation, a portion of which was perforated. There was evidence of hypertrophy over the proximal small intestine and stomach. There were extensive radiation changes, extensive desmoplastic reaction. The radiation changes also where the loop of the resected terminal ileum, was plastered down to the bed of the right where the right kidney used to be. There was concern for viability of portions of the remaining small bowel and as a result, after I was able to do a damage control and resect all the obviously and small intestine, I did not reestablish the bowel in continuity and planned to perform a second look in 24 hours. I left 2 lap sponges deliberately packed in the area of the previously resected right kidney bed. The skin was packed open with a Betadine Kerlix roll. OPERATIVE FINDINGS: Consisted of extensive radiation changes, especially prominent in the right kidney bed secondary to the previous radiation. There were extensive changes to the small bowel and small intestine and in the mesentery of the small bowel, which appeared diffuse and throughout. The cecum had pulled up under the right lobe of the liver inferiorly in the near Morison's pouch and was plastered down with the terminal ileum to the previously resected right kidney. DESCRIPTION OF PROCEDURE: After informed consent, the patient was induced under general anesthesia. He had compression stockings in place and received IV antibiotics. There was adequate IV access. He was sterilely prepped and draped for exploratory laparotomy with an Ioban drape with pockets. I made a standard large midline incision, extending from just below the xiphoid process down to the pubic symphysis. I carried it down sharply to the skin with a #15 scalpel. I dissected down to the linea alba and then elevated between 2 curved hemostats and then incised it and then the peritoneum came into view. I opened it. There was immediately return of large amounts of purulent bilious, which were sucked out with the pool tip and then I used the full incision and then I placed a Bookwalter retractor and I positioned the various blades of the Bookwalter retractor to optimize exposure. My operative findings, initially there appeared was extensive desmoplastic and probable radiation injury involving essentially most of the small intestine. I basically spent a lot of time carefully doing adhesiolysis, so that I could free up the area. I suctioned out the abdomen and then looked for the source of contamination. There was a mid jejunum bowel loops, which looked essentially like spaghetti bowel. There were rock hard adhesions. The bowel was edematous. It did not appear viable. So in order to be able to obtain exposure in the right upper quadrant where the perforation site appeared to be, I resected this area of small intestine. I used the LigaSure device. I freed up as many adhesions as I could and spared as much bowel as I could and then used the LigaSure device, fired across the base of the mesentery, just adjacent to the small bowel with great care to avoid any inadvertent vascular injury. Once I accomplished this, I oversewed the mesentery with a 3-0 Vicryl continuous suture for controlling any potential blood loss and then attention was turned to the right upper quadrant. I did confirm placement of the NG tube in the stomach. I suctioned out all the contaminated contents and then what I found was that the cecum had contracted and appeared up under the right lobe of the liver. It was essentially plastered down with dense fibrous scar along with the terminal ileum. The perforation site was the terminal ileum. I used great care to avoid duodenal injury as well as any injury to the other structures in the area, including the inferior vena cava. After very careful dissection, I was able to free up the distal loop of the terminal ileum where the obvious perforation was and then I was able to mobilize the colon and bring it up. There were a few attachments to the white line of Toldt, but they were diminutive and the colon did appear viable. I left a small segment of the terminal ileum. I used a DARLEEN stapler and transected distal the perforation site and then I freed up the distal jejunum in this area of the terminal ileum as best as I could. I spared the ileocecal valve. Then once I had identified the area of the perforation and resected the area of the ileum for control of the contamination, I did adhesiolysis and I was able to run the small bowel from the ligament of Treitz all the way down to the terminal ileum. There was an area of about 2 feet that had questionable viability with extensive vascular changes, but not frankly . So, the stomach appeared hypertrophy and edematous, like a work hypertrophy, suggesting that the patient has had a progressive obstruction for a very long period of time. The proximal jejunum distal to the ligament of Treitz was hypertrophied and edematous, but viable. So I went to the area where it was just frankly and I cleared away and this is in the area of the jejunum, about 1.5 feet down and I cleared away an area and fired a DARLEEN-80 across it. Then, I took of the frankly , small intestine or jejunum and I removed it. There was an area left a few feet, which was not in continuity, but I was not sure if it was completely viable, but for the purposes of bowel conservation, I elected at that time to perform a second look within 24 hours and not do any further resection. So after having sent the specimen, I washed out the abdomen again. The NG tube placement had been confirmed in the stomach and then I placed 2 lap sponges, which will be removed at the second surgery in the area of the bed of the right kidney, just to have adequate hemostasis and to ensure adequate hemostasis and then the plan was to return in 24-hours to do a second look. I closed the abdomen with #1 looped PDS and I packed the skin open with a Betadine-soaked Kerlix roll. The patient was transferred to the ICU in stable, but critical condition. The NG tube was in place. Endotracheal tube was then placed and the patient had a Azul inserted prior to the procedure. He did receive antibiotics. I would estimate the blood loss to be minimal. JOB# [id number] VALERIANO/KATHERINE SCOTT
[2019-12-31 12:45] LABS: Hematocrit 29.5 % (35.5-45.6); Hemoglobin 10.2 gm/dl (11.8-15.2); Mean Corpuscular HGB Conc 35 % (32-34); Mean Corpuscular Volume 86 fl (84-94); Red Blood Count 3.43 M/mm3 (3.65-5.03); Red Cell Distribution Width 14.9 % (13.2-15.2)
[2019-12-31 12:47] LABS: Platelet Count 62 K/mm3 (140-440)
[2019-12-31 13:07] LABS: BUN/Creatinine Ratio 14; Blood Urea Nitrogen 14 mg/dL (9-20); Calcium 8.2 mg/dL (8.4-10.2); Hemolysis Index 1
--- NOTE | 2019-12-31 13:33 | Operative Report ---
PREOPERATIVE DIAGNOSIS: Second look for evaluation of possible ischemic bowel. POSTOPERATIVE DIAGNOSIS: Second look for evaluation of possible ischemic bowel. PROCEDURE: Exploratory laparotomy with a second look with resection of ischemic small intestine. After the resection of the obviously and frankly small intestine, the mid jejunum measured what was left in the bowel was about 1-1/2 feet of proximal jejunum which appeared viable. There was another 1-1/2 feet of more distal jejunum, which was not in continuity, which appeared dusky and marginal in viability, but was preserved for the purposes of bowel preservation. There was resection of the last remaining remnant of the distal terminal ileum with a portion of the cecum because it did not appear viable. The remaining colon did appear viable. The stomach and the duodenum were viable. I will perform our third look in 24 hours. I had called pharmacy and it was informed at this institution that no IV fluorescein was available and also I spoke with the operating circulating nurse that there was no Wood's lamp available; therefore, I relied on visual inspection and examination for bowel viability. Also, I performed an extensive washout. ANESTHESIA: The procedure was under general endotracheal anesthetic. SURGEON: Saqib Joiner MD CLIENT ACCOUNT ASSISTANT: Dr. Borges BLOOD LOSS: Minimal. PATHOLOGY: Consisted of portions of the jejunum, distal ileum and a portion of the cecum. CONDITION: Critical. DISPOSITION: The patient was transferred to the ICU with endotracheal tube in place. DESCRIPTION OF PROCEDURE: After informed consent from the patient's father since the patient was intubated and sedated, I took him to the surgery suite. He already had an endotracheal tube in place and a Azul catheter with compression stockings. He was induced under general anesthesia and then sterilely prepped and draped in a supine fashion with Ioban drape with pockets. I removed the Betadine Kerlix roll, which had packed the skin open. Using hemostat, I elevated the looped PDS and I cut it and then removed all the PDS, it allowed me to expose the underlying intra-abdominal contents. I again used the Bookwalter retractor and I positioned the various blades of retractor to optimize exposure. Dr. Borges was kind enough to help me for assistance in this case. I suctioned out just essentially clear fluid and then we were able to confirm placement of the NG tube in the stomach. The stomach appeared viable as did the liver and the gallbladder. The first, second, third and fourth portions of the duodenum appeared viable. The proximal jejunum up to about 1-1/2 to 2 feet appeared viable. there was proximal bowel hypertrophy from the years of gradual evolving obstruction, but it had good blood supply. A second area about 1-1/2, which was not in continuity of the more distal jejunum, did appear dusky and marginal in viability, but I made a decision to NOT resect for the purposes of bowel preservation. I did resect the distal terminal ileum which appeared frankly and this included a portion of the cecum. The remaining colon appeared entirely viable and as I stated, the stomach and duodenum appeared viable. My plan is to perform a third look in 24 hours for the purposes of trying to preserve that one portion of 1-1/2 feet of the more distal jejunum. After all of this, we made a decision to not resect the remaining portion of the mid jejunum really for the purposes of trying to conserve it and I have already made the mention that there was no fluorescein available at this institution and no Wood's lamp, but it looked as though it is worth the risk of trying to preserve bowel and it was not frankly , so we closed utilizing a #1 looped PDS, packed the skin open again and the patient was transferred back to the ICU in stable but critical condition. He did not require pressor support. He did receive IV antibiotics preoperatively. JOB# [id number] VALERIANO/KATHERINE SCOTT
[2019-12-31] MEDS ORDERED: HYDROGEN PEROXIDE 118 ML SOLUTION ONE (13:36)
--- NOTE | 2019-12-31 13:42 | Event Note ---
Date: 12/31/19 Patient w/ perforated bowel s/p ex-lap with extensive bowel resection scheduled for 3rd look today. Patient initially left intubated post-operatively but self- extubated this morning in ICU. SpO2 >90% on 3L NC. HD stable w/ no pressor support. INR elevated and unit 2 of 2 FFP running on arrival to OR. Discussed with surgeon. Plan GETA. Patient may possibly be extubated in OR immediately postop pending intraoperative course. BMP and CBC pending. Consent obtained from patient's NOK.
[2019-12-31] MEDS ORDERED: HYDROmorphone 1 MG/1 ML INJ IV PRN (13:43)
[2019-12-31] MEDS ORDERED: ONDANSETRON 4 MG/2 ML INJ IV PRN (13:43)
[2019-12-31] MEDS ORDERED: SODIUM CHLORIDE 0.9% IRR 1,500 ML BOTTLE IR ONE (13:56)
[2019-12-31] MEDS ORDERED: HYDROGEN PEROXIDE 118 ML SOLUTION IRRIGATION ONE (13:56)
[2019-12-31] MEDS ORDERED: DEXTROSE 50% IN WATER (25GM) 50 ML SYRINGE IV ONE ×2 (14:02→21:40)
--- NOTE | 2019-12-31 14:57 | Post Operative Note ---
Pre-op diagnosis: ischemic gut Post-op diagnosis: same Findings: proxomal jejunum remained viable(35cm, middle isolated jejunum (22cm) appeared viable, had dopplerable pulse in marginal artery of avinash, some mild ischemic changes,frozen section done on endportion and came back with some ischemic changes, converted to mucous fistula, proximal jejunum converted into end jejunostomy, Procedure: Exploratory laparotomy (3rd time),end jejunostomy, preservation mid jejunum with mucous fistula, wash out. Anesthesia: GETA Surgeon: MANI EM Estimated blood loss: minimal Pathology: list (frozen section of end of mid jejunum(isolated portion)) Specimen disposition: to lab Condition: stable Disposition: ICU
--- NOTE | 2019-12-31 14:58 | Anesthesia Day of Surgery ---
Anesthesia Day of Surgery - Day of Surgery Patient Examined: Yes Patient H&P Reviewed: Yes Patient is NPO: Yes
--- NOTE | 2019-12-31 15:03 | Event Note ---
Date: 12/31/19 After emergence, patient noted to be awake but not following commands nor responding to simple questions, tidal volumes low and EtCO2 rising without ventilator support. Given recent prolonged opioid infusion, inadequate respiratory effort, and high risk for respiratory failure requiring emergent reintubation, will leave patient intubated for now and return to ICU for further vent weaning and eventual extubation by ICU team.
--- NOTE | 2019-12-31 15:36 | Operative Report ---
PREOPERATIVE DIAGNOSIS: Ischemic gut, this is the third look. POSTOPERATIVE DIAGNOSIS: Ischemic gut, this is the third look. OPERATIVE FINDINGS: Consisted of the proximal jejunum remained viable. It was about 35 cm in length. The middle portion of the isolated jejunum about 22 cm in length also appeared viable and had a dopplerable pulse in the marginal artery of [place], had some mild ischemic changes. A frozen section was done at that distal end of this mid portion of the isolated jejunum and came back with some ischemic changes. This was preserved and converted to a mucous fistula. The proximal jejunum was converted into an end jejunostomy and there was a washout. PROCEDURE: Exploratory laparotomy in jejunostomy, preservation of the mid jejunum with the creation of a mucous fistula and a washout. ANESTHESIA: General. SURGEON: Saqib Joiner MD BLOOD LOSS: Minimal. PATHOLOGY: The frozen section note. The other specimen was sent to the lab CONDITION: The patient's condition was stable. DISPOSITION: To the ICU. DESCRIPTION OF PROCEDURE: After informed consent, the patient was brought to the operating room. He had extubated himself prior to the procedure. So, he was able to give his own consent. He was brought into the operating room. He received IV antibiotics and had compression stockings in place. He was sterilely prepped and draped in a supine fashion after induction of anesthesia. An [place] drape with pockets was used. I removed the packing from the wound and then he was sterilely prepped and draped immediately following. I incised the looped PDS and removed it in its entirety. Then, I used the Bookwalter retractor again and placed the various blades to have clear exposure. I washed out the abdomen, which just had clear noninfected appearing fluid, was removed completely. There was no significant bleeding. I once again examined the stomach. The NG tube was in good position. The proximal jejunum extending from the ligament of Treitz approximately 30 cm was of good quality and was viable. Then, attention was turned to section of mid jejunum, which was about 20-25 cm, which was preserved for the purposes. Bowel was not resected for the purposes of bowel preservation. It appeared with some mild ischemic changes, but it had a dopplerable signal in the marginal artery of [place]. It was a difficult call, but for the purposes of bowel preservation, I felt that it was worth to saving it. Therefore, I went to the distal end and I shaved off a portion with a DARLEEN stapler and sent it for a frozen section, which demonstrated only ischemic changes, but not frankly bowel. So, I made a decision for bowel preservation. I created a mucous fistula by removing all the contents and then I created a mucous fistula and brought it out on the right mid quadrant just lateral to the rectus sheath. I made an incision with a #15 scalpel in the skin and then made a cruciate incision in the fascia, anterior and posterior. I used a Ansted clamp and brought it up and matured it in a later fashion following closure of the abdomen. In a like fashion, I went down and isolated the proximal jejunum and I made another incision on to the left side of the umbilicus, lateral to the rectus sheath with a #15 scalpel a circular incision, went down to the fascia, made a cruciate incision in both layers of the fascia, used a Ansted clamp, made sure the bowel was untwisted and brought it to be matured later as an end jejunostomy. I did some interrupted 3-0 Vicryls on the posterior aspect of the anterior abdominal wall in both cases and then I did a delayed maturation. I used dilute hydrogen peroxide and large amounts of normal saline to wash out the abdomen. It was relatively clean with no purulence at all and then I made a decision to terminate the procedure. I used a #1 looped PDS to close and then I used a Betadine apple with som for skin. The patient was hemodynamically stable throughout the procedure. I would estimate blood loss was really minimal. He was transferred to recovery room in stable condition. JOB# [id number] VALERIANO/KATHERINE SCOTT
--- NOTE | 2019-12-31 15:51 | Progress Note ---
Subjective Date of service: 12/31/19 Principal diagnosis: Abdominal pain small bowel obstruction Interval history: Patient tolerated procedure well and vital signs stable. However, intended extub ation plan was aborted on account of diminished post-operative tidal volume ranging from 150-200ml. Patient was then transferred back to ICU and placed on a ventilator for further management. Report given to attending ICU staff. Objective - Constitutional Vitals: Vital Signs - 12hr 12/31/19 12/31/19 12/31/19 03:45 04:00 04:15 Temperature 98.7 F Pulse Rate 104 H 112 H 118 H Pulse Rate [ 112 H From Monitor] Respiratory 18 24 22 Rate Blood Pressure 110/74 103/77 110/79 O2 Sat by Pulse 100 100 99 Oximetry 12/31/19 12/31/19 12/31/19 04:30 04:32 04:45 Temperature Pulse Rate 103 H 100 H 113 H Pulse Rate [ From Monitor] Respiratory 21 24 Rate Blood Pressure 107/75 107/75 111/66 O2 Sat by Pulse 100 100 100 Oximetry 12/31/19 12/31/19 12/31/19 05:00 05:15 05:30 Temperature Pulse Rate 105 H 118 H 106 H Pulse Rate [ From Monitor] Respiratory 21 24 21 Rate Blood Pressure 113/79 113/79 113/74 O2 Sat by Pulse 100 99 100 Oximetry 12/31/19 12/31/19 12/31/19 05:45 06:00 06:15 Temperature Pulse Rate 116 H 104 H 102 H Pulse Rate [ From Monitor] Respiratory 23 21 22 Rate Blood Pressure 113/79 115/76 115/76 O2 Sat by Pulse 99 100 100 Oximetry 12/31/19 12/31/19 12/31/19 06:30 07:00 07:15 Temperature Pulse Rate 102 H 106 H 115 H Pulse Rate [ From Monitor] Respiratory 21 25 H Rate Blood Pressure 119/78 119/77 119/78 O2 Sat by Pulse 100 99 97 Oximetry 12/31/19 12/31/19 12/31/19 07:33 07:41 07:45 Temperature Pulse Rate 101 H 96 H Pulse Rate [ From Monitor] Respiratory 21 Rate Blood Pressure 115/71 115/71 O2 Sat by Pulse 99 99 99 Oximetry 12/31/19 12/31/19 12/31/19 08:00 08:15 08:30 Temperature 97.6 F Pulse Rate 95 H 98 H 119 H Pulse Rate [ 114 H From Monitor] Respiratory 20 20 23 Rate Blood Pressure 125/81 115/71 94/72 O2 Sat by Pulse 99 99 Oximetry 12/31/19 12/31/19 12/31/19 08:45 09:00 09:15 Temperature Pulse Rate 112 H 113 H 115 H Pulse Rate [ From Monitor] Respiratory 24 24 34 H Rate Blood Pressure 94/72 104/62 104/62 O2 Sat by Pulse 89 Oximetry 12/31/19 12/31/19 12/31/19 09:30 09:45 10:01 Temperature Pulse Rate 98 H 116 H 122 H Pulse Rate [ From Monitor] Respiratory 28 H 39 H 27 H Rate Blood Pressure 112/70 112/70 112/70 O2 Sat by Pulse 97 94 88 Oximetry 12/31/19 12/31/19 12/31/19 10:15 10:31 10:45 Temperature Pulse Rate 104 H 120 H 102 H Pulse Rate [ From Monitor] Respiratory 28 H 30 H 26 H Rate Blood Pressure 81/53 81/53 81/53 O2 Sat by Pulse 97 98 95 Oximetry 12/31/19 12/31/19 12/31/19 11:00 11:15 11:20 Temperature 98 F Pulse Rate 104 H 96 H 102 H Pulse Rate [ From Monitor] Respiratory 24 25 H 26 H Rate Blood Pressure 135/83 135/83 112/70 O2 Sat by Pulse 96 94 94 Oximetry 12/31/19 12/31/19 12/31/19 11:31 11:35 11:45 Temperature 97.5 F L Pulse Rate 124 H 97 H 139 H Pulse Rate [ From Monitor] Respiratory 32 H 22 33 H Rate Blood Pressure 125/74 122/63 125/74 O2 Sat by Pulse 87 94 93 Oximetry 12/31/19 12/31/19 12/31/19 12:00 12:01 12:05 Temperature 97.5 F L 97 F L Pulse Rate 125 H 95 H Pulse Rate [ From Monitor] Respiratory 34 H 24 Rate Blood Pressure 135/83 120/75 O2 Sat by Pulse 81 L 120 H Oximetry 12/31/19 12/31/19 12:15 12:30 Temperature 97.5 F L Pulse Rate 93 H 103 H Pulse Rate [ From Monitor] Respiratory 22 26 H Rate Blood Pressure 127/65 127/80 O2 Sat by Pulse 93 97 Oximetry - Labs CBC & Chem 7: 09/28/20 12:15 12/31/19 12:15 Labs: Abnormal lab results 12/29/19 12/30/19 12/31/19 Range/Units 19:52 22:30 04:03 RBC (3.65-5.03) M/mm3 Hgb (11.8-15.2) gm/dl Hct (35.5-45.6) % MCHC (32-34) % Plt Count (140-440) K/mm3 PT 27.6 H (12.2-14.9) Sec. INR 2.53 H (0.87-1.13) APTT 42.2 H (24.2-36.6) Sec. ABG Hemoglobin 11.4 L (12.0-17.5) Glucose (75-100) mg/dL Calcium (8.4-10.2) mg/dL Crossmatch See Detail 12/31/19 12/31/19 Range/Units 12:15 12:15 RBC 3.43 L (3.65-5.03) M/mm3 Hgb 10.2 L D (11.8-15.2) gm/dl Hct 29.5 L D (35.5-45.6) % MCHC 35 H (32-34) % Plt Count 62 L (140-440) K/mm3 PT (12.2-14.9) Sec. INR (0.87-1.13) APTT (24.2-36.6) Sec. ABG Hemoglobin (12.0-17.5) Glucose 52 L (75-100) mg/dL Calcium 8.2 L D (8.4-10.2) mg/dL Crossmatch
--- NOTE | 2019-12-31 18:09 | Progress Note ---
Assessment and Plan - Patient Problems (1) DVT prophylaxis Current Visit: Yes Status: Acute Plan to address problem: Anticoagulation being held secondary to surgery and risk of bleeding. (2) Dehydration Current Visit: Yes Status: Resolved Plan to address problem: Patient well-hydrated. Fluid volumes stable ins and outs stable. (3) Small bowel obstruction Current Visit: Yes Status: Acute Plan to address problem: Status post exploratory lap x3. C surgery note. Some ischemic bowel. Hemicolectomy. Fistula washed out. (4) Metabolic acidosis Current Visit: Yes Status: Acute Plan to address problem: Has improved from 4.6-3. Post surgery. 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 Patient states for the past 2 days he has had some abdominal distention in the right lower gurjit drant and crampy 10 out of 10 pain. He has had multiple episodes of nausea and vomiting. Denies fever chills cough cold or congestion. On December 30, [address] showed patient to have free air in colon. Surgical intervention was required. Patient had surgery had partial hemicolectomy during exploratory laparotomy was subsequently intubated and transferred to the intensive care unit. On December 31, 2019 patient returned to the OR for an additional surgery. After initial extubation. Patient was not follow commands agitated unable to really protect airways and therefore was reintubated. Remains intubated for the next 24 hours. Severity scale (0 -10): 10 Patient remains intubated today. Patient was taken to surgery today again for additional evaluation of colon. Objective - Constitutional Vitals: Vital Signs - 12hr 12/31/19 12/31/19 12/31/19 06:15 06:30 07:00 Temperature Pulse Rate 102 H 102 H 106 H Pulse Rate [ From Monitor] Respiratory 22 21 Rate Blood Pressure 115/76 119/78 119/77 O2 Sat by Pulse 100 100 99 Oximetry 12/31/19 12/31/19 12/31/19 07:15 07:33 07:41 Temperature Pulse Rate 115 H 101 H Pulse Rate [ From Monitor] Respiratory 25 H Rate Blood Pressure 119/78 115/71 O2 Sat by Pulse 97 99 99 Oximetry 12/31/19 12/31/19 12/31/19 07:45 08:00 08:15 Temperature 97.6 F Pulse Rate 96 H 95 H 98 H Pulse Rate [ 114 H From Monitor] Respiratory 21 20 20 Rate Blood Pressure 115/71 125/81 115/71 O2 Sat by Pulse 99 99 99 Oximetry 12/31/19 12/31/19 12/31/19 08:30 08:45 09:00 Temperature Pulse Rate 119 H 112 H 113 H Pulse Rate [ From Monitor] Respiratory 23 24 24 Rate Blood Pressure 94/72 94/72 104/62 O2 Sat by Pulse Oximetry 12/31/19 12/31/19 12/31/19 09:15 09:30 09:45 Temperature Pulse Rate 115 H 98 H 116 H Pulse Rate [ From Monitor] Respiratory 34 H 28 H 39 H Rate Blood Pressure 104/62 112/70 112/70 O2 Sat by Pulse 89 97 94 Oximetry 12/31/19 12/31/19 12/31/19 10:01 10:15 10:31 Temperature Pulse Rate 122 H 104 H 120 H Pulse Rate [ From Monitor] Respiratory 27 H 28 H 30 H Rate Blood Pressure 112/70 81/53 81/53 O2 Sat by Pulse 88 97 98 Oximetry 12/31/19 12/31/19 12/31/19 10:45 11:00 11:15 Temperature Pulse Rate 102 H 104 H 96 H Pulse Rate [ From Monitor] Respiratory 26 H 24 25 H Rate Blood Pressure 81/53 135/83 135/83 O2 Sat by Pulse 95 96 94 Oximetry 12/31/19 12/31/19 12/31/19 11:20 11:31 11:35 Temperature 98 F 97.5 F L Pulse Rate 102 H 124 H 97 H Pulse Rate [ From Monitor] Respiratory 26 H 32 H 22 Rate Blood Pressure 112/70 125/74 122/63 O2 Sat by Pulse 94 87 94 Oximetry 12/31/19 12/31/19 12/31/19 11:45 12:00 12:01 Temperature 97.5 F L Pulse Rate 139 H 125 H Pulse Rate [ From Monitor] Respiratory 33 H 34 H Rate Blood Pressure 125/74 135/83 O2 Sat by Pulse 93 81 L Oximetry 12/31/19 12/31/19 12/31/19 12:05 12:15 12:30 Temperature 97 F L 97.5 F L Pulse Rate 95 H 93 H 103 H Pulse Rate [ From Monitor] Respiratory 25 H 22 26 H Rate Blood Pressure 120/75 127/65 127/80 O2 Sat by Pulse 94 93 97 Oximetry 12/31/19 12/31/19 12/31/19 14:20 15:17 15:20 Temperature 98.7 F Pulse Rate 112 H 122 H Pulse Rate [ From Monitor] Respiratory 26 H Rate Blood Pressure 126/90 126/90 126/90 O2 Sat by Pulse 96 93 Oximetry 12/31/19 12/31/19 12/31/19 15:25 15:30 15:35 Temperature Pulse Rate 105 H 103 H 90 Pulse Rate [ From Monitor] Respiratory 25 H 25 H 20 Rate Blood Pressure 126/96 132/88 124/86 O2 Sat by Pulse 95 96 96 Oximetry 12/31/19 12/31/19 12/31/19 15:39 15:40 15:45 Temperature 99 F Pulse Rate 76 78 Pulse Rate [ From Monitor] Respiratory 21 20 18 Rate Blood Pressure 118/81 116/84 O2 Sat by Pulse 96 96 Oximetry 12/31/19 16:20 Temperature Pulse Rate 73 Pulse Rate [ From Monitor] Respiratory 18 Rate Blood Pressure 115/80 O2 Sat by Pulse 97 Oximetry General appearance: Present: other (Intubated no acute distress.) - Respiratory Respiratory: bilateral: CTA - Cardiovascular Rhythm: regular Heart Sounds: Present: S1 & S2. Absent: gallop, rub - Gastrointestinal General gastrointestinal: Present: other (Will need TPN. Area bandaged surgical bandages. Not examined.) - Labs CBC & Chem 7: 12/31/19 12:15 12/31/19 12:15 Labs: Abnormal lab results 12/29/19 12/30/19 12/31/19 Range/Units 19:52 22:30 04:03 RBC (3.65-5.03) M/mm3 Hgb (11.8-15.2) gm/dl Hct (35.5-45.6) % MCHC (32-34) % Plt Count (140-440) K/mm3 PT 27.6 H (12.2-14.9) Sec. INR 2.53 H (0.87-1.13) APTT 42.2 H (24.2-36.6) Sec. ABG Hemoglobin 11.4 L (12.0-17.5) Glucose (75-100) mg/dL Calcium (8.4-10.2) mg/dL Crossmatch See Detail 12/31/19 12/31/19 Range/Units 12:15 12:15 RBC 3.43 L (3.65-5.03) M/mm3 Hgb 10.2 L D (11.8-15.2) gm/dl Hct 29.5 L D (35.5-45.6) % MCHC 35 H (32-34) % Plt Count 62 L (140-440) K/mm3 PT (12.2-14.9) Sec. INR (0.87-1.13) APTT (24.2-36.6) Sec. ABG Hemoglobin (12.0-17.5) Glucose 52 L (75-100) mg/dL Calcium 8.2 L D (8.4-10.2) mg/dL Crossmatch
[2020-01-01] MEDS: fentaNYL 100 MCG/2 ML INJ IV PRN ×2 (01:09→05:31)
--- NOTE | 2020-01-01 04:42 | XRay Report ---
CHEST 1 VIEW 01/01/2020 3:32 AM INDICATION / CLINICAL INFORMATION: follow up respiratory failure. COMPARISON: 12/31/2019 FINDINGS: SUPPORT DEVICES: Stable, satisfactory device positioning. HEART / MEDIASTINUM: Stable. LUNGS / PLEURA: Mildly worsened bilateral pleural effusions and bilateral perihilar opacities. No pne umothorax. ADDITIONAL FINDINGS: No significant additional findings. IMPRESSION: 1. Mild worsening in bilateral pleural effusions and pulmonary opacities. Signer Name: Josesito Rouse MD Signed: 01/01/2020 4:37 AM Workstation Name: [id number]
[2020-01-01] MEDS: LORazepam 2 MG/ML VIAL IV PRN ×2 (05:01)
[2020-01-01] MEDS: PIPERACIL/TAZOBACTA 4.5/NS 100 4.5 GM/100 ML VIAL IV SCH ×3 (05:01→23:03)
[2020-01-01 05:42] LABS: ABG Base Excess -0.3 mmol/L (-2.0-3.0); ABG HCO3 23.5 mmol/L (20.0-26.0); ABG Methemoglobin 0.7 % (0.0-1.5); ABG Oxygen Saturation 97.1 % (95.0-99.0); ABG PCO2 34.1 mm Hg; ABG PH 7.456 pH Units (7.350-7.450); ABG PO2 85.3 mm Hg (80.0-90.0)
[2020-01-01 05:52] LABS: Hematocrit 27.2 % (35.5-45.6); Hemoglobin 9.6 gm/dl (11.8-15.2); Mean Corpuscular HGB Conc 35 % (32-34); Mean Corpuscular Volume 85 fl (84-94); Red Blood Count 3.19 M/mm3 (3.65-5.03); Red Cell Distribution Width 15.1 % (13.2-15.2)
[2020-01-01 05:57] LABS: Platelet Count 42 K/mm3 (140-440)
[2020-01-01 06:12] LABS: Blood Urea Nitrogen 14 mg/dL (9-20); Calcium 8.1 mg/dL (8.4-10.2); Hemolysis Index 7
[2020-01-01 06:14] LABS: BUN/Creatinine Ratio 20
[2020-01-01] MEDS: SODIUM CHLORIDE 0.9% 1000 ML 1,000 ML IV SCH (06:32)
[2020-01-01 06:41] LABS: Basophils % (Manual) 0 % (0.0-1.8); Eosinophils % (Manual) 0 % (0.0-4.3); Target Cells Few; Total Cells Counted 100
[2020-01-01 06:42] LABS: Burr Cells Few; Ovalocytes Few; Platelet Estimate Consistent w Auto; Schistocytes Rare
--- NOTE | 2020-01-01 08:03 | Progress Note ---
Assessment and Plan stable hemodyn, hopefully can be extubated, and transfered to floor, continue TPN, leave NG for now, continue antibiotics. 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 Please leave villegas for today, once extubated and stable can d/c, maybe tomorrow. Subjective Date of service: 01/01/20 Patient Reports: Positive: other (sedated on vent, hemodyn stable) Objective Vital Signs - 12hr 12/31/19 12/31/19 12/31/19 20:15 20:30 20:45 Temperature Pulse Rate 100 H 88 87 Pulse Rate [ From Monitor] Respiratory 18 17 16 Rate Respiratory Rate [Abdomen] Blood Pressure 115/78 110/81 110/81 O2 Sat by Pulse 99 99 99 Oximetry 12/31/19 12/31/19 12/31/19 21:00 21:15 21:30 Temperature Pulse Rate 85 95 H 89 Pulse Rate [ From Monitor] Respiratory 16 22 18 Rate Respiratory Rate [Abdomen] Blood Pressure 119/79 119/79 109/79 O2 Sat by Pulse 99 100 100 Oximetry 12/31/19 12/31/19 12/31/19 21:45 22:00 22:15 Temperature Pulse Rate 90 90 86 Pulse Rate [ From Monitor] Respiratory 18 20 19 Rate Respiratory 18 Rate [Abdomen] Blood Pressure 109/79 118/74 118/74 O2 Sat by Pulse 99 100 99 Oximetry 12/31/19 12/31/19 12/31/19 22:30 22:45 23:00 Temperature Pulse Rate 90 94 H 109 H Pulse Rate [ From Monitor] Respiratory 20 21 22 Rate Respiratory Rate [Abdomen] Blood Pressure 107/74 107/74 108/75 O2 Sat by Pulse 100 100 99 Oximetry 12/31/19 12/31/19 12/31/19 23:15 23:30 23:45 Temperature Pulse Rate 97 H 109 H 104 H Pulse Rate [ From Monitor] Respiratory 19 20 25 H Rate Respiratory Rate [Abdomen] Blood Pressure 108/75 111/77 111/77 O2 Sat by Pulse 99 100 100 Oximetry 01/01/20 01/01/20 01/01/20 00:00 00:07 00:15 Temperature 99.7 F H Pulse Rate 107 H 90 86 Pulse Rate [ 86 From Monitor] Respiratory 21 22 17 Rate Respiratory Rate [Abdomen] Blood Pressure 113/76 113/76 113/76 O2 Sat by Pulse 100 100 100 Oximetry 01/01/20 01/01/20 01/01/20 00:30 00:45 01:00 Temperature Pulse Rate 107 H 95 H 81 Pulse Rate [ From Monitor] Respiratory 18 18 18 Rate Respiratory Rate [Abdomen] Blood Pressure 118/79 118/79 109/76 O2 Sat by Pulse 100 100 100 Oximetry 01/01/20 01/01/20 01/01/20 01:05 01:09 01:15 Temperature Pulse Rate 87 86 Pulse Rate [ From Monitor] Respiratory 19 18 Rate Respiratory Rate [Abdomen] Blood Pressure 109/79 109/76 O2 Sat by Pulse 100 100 Oximetry 01/01/20 01/01/20 01/01/20 01:30 01:45 02:00 Temperature Pulse Rate 76 84 71 Pulse Rate [ From Monitor] Respiratory 18 18 15 Rate Respiratory Rate [Abdomen] Blood Pressure 116/81 109/76 112/78 O2 Sat by Pulse 100 100 100 Oximetry 01/01/20 01/01/20 01/01/20 02:09 02:15 02:30 Temperature Pulse Rate 74 81 Pulse Rate [ From Monitor] Respiratory 18 18 18 Rate Respiratory Rate [Abdomen] Blood Pressure 112/78 107/77 O2 Sat by Pulse 100 100 Oximetry 01/01/20 01/01/20 01/01/20 02:45 03:00 03:15 Temperature Pulse Rate 75 91 H 105 H Pulse Rate [ From Monitor] Respiratory 18 18 21 Rate Respiratory Rate [Abdomen] Blood Pressure 112/78 124/89 124/89 O2 Sat by Pulse 100 100 100 Oximetry 01/01/20 01/01/20 01/01/20 03:30 03:45 04:00 Temperature 98.7 F Pulse Rate 72 84 79 Pulse Rate [ 98 H From Monitor] Respiratory 17 16 14 Rate Respiratory Rate [Abdomen] Blood Pressure 126/80 126/80 117/77 O2 Sat by Pulse 100 100 100 Oximetry 01/01/20 01/01/20 01/01/20 04:15 04:30 04:45 Temperature Pulse Rate 104 H 106 H 118 H Pulse Rate [ From Monitor] Respiratory 21 24 27 H Rate Respiratory Rate [Abdomen] Blood Pressure 117/77 123/83 123/83 O2 Sat by Pulse 100 100 100 Oximetry 01/01/20 01/01/20 01/01/20 05:00 05:05 05:15 Temperature Pulse Rate 113 H 95 H 76 Pulse Rate [ From Monitor] Respiratory 32 H 18 Rate Respiratory Rate [Abdomen] Blood Pressure 123/87 123/87 123/87 O2 Sat by Pulse 99 99 100 Oximetry 01/01/20 01/01/20 01/01/20 05:30 05:46 06:31 Temperature Pulse Rate 106 H 76 Pulse Rate [ From Monitor] Respiratory 21 17 18 Rate Respiratory Rate [Abdomen] Blood Pressure 123/87 128/86 O2 Sat by Pulse 98 100 Oximetry 01/01/20 01/01/20 06:53 07:00 Temperature Pulse Rate 62 68 Pulse Rate [ From Monitor] Respiratory 18 18 Rate Respiratory Rate [Abdomen] Blood Pressure 123/87 121/85 O2 Sat by Pulse 100 100 Oximetry - General physical appearance no distress - Eyes PERRL, normal occular movement - ENT normal pinna, normal nares, normal mucosa, no hearing loss, no congestion - Neck no masses, no bruits, trachea midline, no lymphadectomy, no venous distension - Respiratory normal expansion, normal respiratory effort, clear to percussion, clear to auscultation - Abdomen bowel sounds hypoactive, other (both ostomies viable, no output really, dressing dry and intact) - Labs 01/01/20 Unknown 01/01/20 06:00 Diabetes panel 12/31/19 01/01/20 Range/Units 12:15 06:00 Sodium 141 140 (137-145) mmol/L Potassium 4.8 4.7 (3.6-5.0) mmol/L Chloride 102.6 102.9 (98-107) mmol/L Carbon Dioxide 22 23 (22-30) mmol/L BUN 14 14 (9-20) mg/dL Creatinine 1.0 0.7 L (0.8-1.3) mg/dL Glucose 52 L 95 (75-100) mg/dL Calcium 8.2 L D 8.1 L (8.4-10.2) mg/dL Calcium panel 12/31/19 01/01/20 Range/Units 12:15 06:00 Calcium 8.2 L D 8.1 L (8.4-10.2) mg/dL Pituitary panel 12/31/19 01/01/20 Range/Units 12:15 06:00 Sodium 141 140 (137-145) mmol/L Potassium 4.8 4.7 (3.6-5.0) mmol/L Chloride 102.6 102.9 (98-107) mmol/L Carbon Dioxide 22 23 (22-30) mmol/L BUN 14 14 (9-20) mg/dL Creatinine 1.0 0.7 L (0.8-1.3) mg/dL Glucose 52 L 95 (75-100) mg/dL Calcium 8.2 L D 8.1 L (8.4-10.2) mg/dL Adrenal panel 12/31/19 01/01/20 Range/Units 12:15 06:00 Sodium 141 140 (137-145) mmol/L Potassium 4.8 4.7 (3.6-5.0) mmol/L Chloride 102.6 102.9 (98-107) mmol/L Carbon Dioxide 22 23 (22-30) mmol/L BUN 14 14 (9-20) mg/dL Creatinine 1.0 0.7 L (0.8-1.3) mg/dL Glucose 52 L 95 (75-100) mg/dL Calcium 8.2 L D 8.1 L (8.4-10.2) mg/dL
--- NOTE | 2020-01-01 09:57 | Progress Note ---
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 Patient states for the past 2 days he has had some abdominal distention in the right lower quadrant and crampy 10 out of 10 pain. He has had multiple episodes of nausea and vomiting. Denies fever chills cough cold or congestion. On December 30, [address] showed patient to have free air in colon. Surgical intervention was required. Patient had surgery had partial hemicolectomy during exploratory laparotomy was subsequently intubated and transferred to the intensive care unit. On December 31, 2019 patient returned to the OR for an additional surgery. After initial extubation. Patient was not follow commands agitated unable to really protect airways and therefore was reintubated. (1) Small bowel obstruction Current Visit: Yes Status: Acute Plan to address problem: Status post exploratory lap x3. C surgery note. Some ischemic bowel. Hemicolectomy. Fistula washed out. (2) Dehydration Current Visit: Yes Status: Resolved Plan to address problem: Patient well-hydrated. Fluid volumes stable ins and outs stable. (3) Acute Metabolic Encephalopathy with subsequent acute respiratory failure Patient extubated successfully today. We will downgrade to MedSurg. Advised nursing staff to continue monitoring mental status. (4) Metabolic acidosis Current Visit: Yes Status: Acute Plan to address problem: Has improved from 4.6-3. Post surgery. (5) ANEMIA -precipitious drop in hemoglobin (6) Thrombocytopenia Monitor closely. (7) DVT prophylaxis Current Visit: Yes Status: Acute Plan to address problem: Anticoagulation being held secondary to surgery and risk of bleeding. History Interval history: Patient seen and examined, drowsy but per nursing review, just went to bed and was more awake this morning following extubation. Hospitalist Physical - Physical exam Narrative exam: VITAL SIGNS: Reviewed. GENERAL: The patient appears normally developed, otherwise lethargic vital signs as documented. HEAD: No signs of head trauma. EYES: Pupils are equal. Extraocular motions intact. EARS: Hearing grossly intact. MOUTH: Oropharynx is normal. NECK: No adenopathy, no JVD. CHEST: Chest with diminished breath sounds bilaterally. No wheezes, rales, or rhonchi. CARDIAC: Regular rate and rhythm. S1 and S2, without murmurs, gallops, or rubs. VASCULAR: No Edema. Peripheral pulses normal and equal in all extremities. ABDOMEN: Soft, nondistended mildly tender hypoactive bowel sounds. Abdominal dressing intact and did not take down. Review of surgeons notes shows that both ostomies are viable. No significant output noted.. MUSCULOSKELETAL: Good range of motion of all major joints. Extremities without clubbing, cyanosis or edema. NEUROLOGIC EXAM: Alert and oriented x 3 but otherwise was drowsy this morning no focal sensory or strength deficits. Speech normal. Follows commands. PSYCHIATRIC: Mood normal. SKIN: detail exam as documented in skin assessment - Constitutional Vitals: Temp Pulse Resp BP Pulse Ox 98.7 F 100 H 18 128/84 89 01/01/20 08:00 01/01/20 08:00 01/01/20 07:00 01/01/20 08:00 01/01/20 08:00 General appearance: Present: other (Intubated no acute distress.) Results - Labs CBC & Chem 7: 01/01/20 Unknown 01/02/20 05:00 Labs: Laboratory Last Values WBC 10.5 K/mm3 (4.5-11.0) 01/01/20 Unknown RBC 3.19 M/mm3 (3.65-5.03) L 01/01/20 Unknown Hgb 9.6 gm/dl (11.8-15.2) L 01/01/20 Unknown Hct 27.2 % (35.5-45.6) L 01/01/20 Unknown MCV 85 fl (84-94) 01/01/20 Unknown MCH 30 pg (28-32) 01/01/20 Unknown MCHC 35 % (32-34) H 01/01/20 Unknown RDW 15.1 % (13.2-15.2) 01/01/20 Unknown Plt Count 42 K/mm3 (140-440) L 01/01/20 Unknown Lymph % (Auto) 13.6 % (13.4-35.0) 12/28/19 04:35 [place] % (Auto) 6.8 % (0.0-7.3) 12/28/19 04:35 Eos % (Auto) 0.4 % (0.0-4.3) 12/28/19 04:35 Baso % (Auto) 0.4 % (0.0-1.8) 12/28/19 04:35 Lymph # (Auto) 0.9 K/mm3 (1.2-5.4) L 12/28/19 04:35 [place] # (Auto) 0.4 K/mm3 (0.0-0.8) 12/28/19 04:35 Eos # (Auto) 0.0 K/mm3 (0.0-0.4) 12/28/19 04:35 Baso # (Auto) 0.0 K/mm3 (0.0-0.1) 12/28/19 04:35 Add Manual Diff Complete 01/01/20 Unknown Total Counted 100 01/01/20 Unknown Seg Neutrophils % Lodging Facilities Attendant 01/01/20 Unknown Seg Neuts % (Manual) 93.0 % (40.0-70.0) H 01/01/20 Unknown Band Neutrophils % 0 % 01/01/20 Unknown Lymphocytes % (Manual) 1.0 % (13.4-35.0) L 01/01/20 Unknown Reactive Lymphs % (Man) 0 % 01/01/20 Unknown Monocytes % (Manual) 6.0 % (0.0-7.3) 01/01/20 Unknown Eosinophils % (Manual) 0 % (0.0-4.3) 01/01/20 Unknown Basophils % (Manual) 0 % (0.0-1.8) 01/01/20 Unknown Metamyelocytes % 0 % 01/01/20 Unknown Myelocytes % 0 % 01/01/20 Unknown Promyelocytes % 0 % 01/01/20 Unknown Blast Cells % 0 % 01/01/20 Unknown Nucleated RBC % Not Reportable 01/01/20 Unknown Seg Neutrophils # 5.1 K/mm3 (1.8-7.7) 12/28/19 04:35 Seg Neutrophils # Man 9.8 K/mm3 (1.8-7.7) H 01/01/20 Unknown Band Neutrophils # 0.0 K/mm3 01/01/20 Unknown Lymphocytes # (Manual) 0.1 K/mm3 (1.2-5.4) L 01/01/20 Unknown Abs React Lymphs (Man) 0.0 K/mm3 01/01/20 Unknown Monocytes # (Manual) 0.6 K/mm3 (0.0-0.8) 01/01/20 Unknown Eosinophils # (Manual) 0.0 K/mm3 (0.0-0.4) 01/01/20 Unknown Basophils # (Manual) 0.0 K/mm3 (0.0-0.1) 01/01/20 Unknown Metamyelocytes # 0.0 K/mm3 01/01/20 Unknown Myelocytes # 0.0 K/mm3 01/01/20 Unknown Promyelocytes # 0.0 K/mm3 01/01/20 Unknown Blast Cells # 0.0 K/mm3 01/01/20 Unknown WBC Morphology Not Reportable 01/01/20 Unknown Hypersegmented Neuts Not Reportable 01/01/20 Unknown Hyposegmented Neuts Not Reportable 01/01/20 Unknown Hypogranular Neuts Not Reportable 01/01/20 Unknown Smudge Cells Not Reportable 01/01/20 Unknown Toxic Granulation Not Reportable 01/01/20 Unknown Toxic Vacuolation Not Reportable 01/01/20 Unknown Dohle Bodies Not Reportable 01/01/20 Unknown Pelger-Huet Anomaly Not Reportable 01/01/20 Unknown Anuradha Rods Not Reportable 01/01/20 Unknown Platelet Estimate Consistent w auto 01/01/20 Unknown Clumped Platelets Not Reportable 01/01/20 Unknown Plt Clumps, EDTA Not Reportable 01/01/20 Unknown Large Platelets Not Reportable 01/01/20 Unknown Giant Platelets Not Reportable 01/01/20 Unknown Platelet Satelliting Not Reportable 01/01/20 Unknown Plt Morphology Comment Not Reportable 01/01/20 Unknown RBC Morphology Not Reportable 01/01/20 Unknown Dimorphic RBCs Not Reportable 01/01/20 Unknown Polychromasia Not Reportable 01/01/20 Unknown Hypochromasia Not Reportable 01/01/20 Unknown Poikilocytosis Not Reportable 01/01/20 Unknown Anisocytosis Not Reportable 01/01/20 Unknown Microcytosis Not Reportable 01/01/20 Unknown Macrocytosis Not Reportable 01/01/20 Unknown Spherocytes Not Reportable 01/01/20 Unknown Pappenheimer Bodies Not Reportable 01/01/20 Unknown Sickle Cells Not Reportable 01/01/20 Unknown Target Cells Few 01/01/20 Unknown Tear Drop Cells Not Reportable 01/01/20 Unknown Ovalocytes Few 01/01/20 Unknown Helmet Cells Not Reportable 01/01/20 Unknown [place] Bodies Not Reportable 01/01/20 Unknown [place] Rings Not Reportable 01/01/20 Unknown [place] Cells Few 01/01/20 Unknown Bite Cells Not Reportable 01/01/20 Unknown Crenated Cell Not Reportable 01/01/20 Unknown Elliptocytes Not Reportable 01/01/20 Unknown Acanthocytes (Spur) Not Reportable 01/01/20 Unknown Rouleaux Not Reportable 01/01/20 Unknown Hemoglobin C Crystals Not Reportable 01/01/20 Unknown Schistocytes Rare 01/01/20 Unknown Malaria parasites Not Reportable 01/01/20 Unknown Christ Bodies Not Reportable 01/01/20 Unknown Hem Pathologist Commnt No 01/01/20 Unknown PT 27.6 Sec. (12.2-14.9) H 12/30/19 22:30 INR 2.53 (0.87-1.13) H 12/30/19 22:30 APTT 42.2 Sec. (24.2-36.6) H 12/30/19 22:30 ABG pH 7.456 pH Units (7.350-7.450) H 01/01/20 05:15 POC ABG pCO2 34.7 mmHg (32.0-48.0) 12/31/19 04:03 ABG pCO2 34.1 mm Hg 01/01/20 05:15 POC ABG pO2 95.1 mmHg (83-108) 12/31/19 04:03 ABG pO2 85.3 mm Hg (80.0-90.0) 01/01/20 05:15 POC ABG HCO3 20.2 12/31/19 04:03 ABG HCO3 23.5 mmol/L (20.0-26.0) 01/01/20 05:15 ABG O2 Saturation 97.1 % (95.0-99.0) 01/01/20 05:15 ABG O2 Content 9.4 (0.0-44) 01/01/20 05:15 POC ABG Base Excess -4.2 12/31/19 04:03 ABG Base Excess -0.3 mmol/L (-2.0-3.0) 01/01/20 05:15 ABG Hemoglobin 6.9 gm/dl (14.0-18.0) L 01/01/20 05:15 ABG Carboxyhemoglobin 1.4 % (0.0-5.0) 01/01/20 05:15 ABG Methemoglobin 0.7 % (0.0-1.5) 01/01/20 05:15 Oxyhemoglobin 95.0 % (95.0-99.0) 01/01/20 05:15 FiO2 35 % 01/01/20 05:15 Sodium 140 mmol/L (137-145) 01/01/20 06:00 Potassium 4.7 mmol/L (3.6-5.0) 01/01/20 06:00 Chloride 102.9 mmol/L (98-107) 01/01/20 06:00 Carbon Dioxide 23 mmol/L (22-30) 01/01/20 06:00 Anion Gap 19 mmol/L 01/01/20 06:00 BUN 14 mg/dL (9-20) 01/01/20 06:00 Creatinine 0.7 mg/dL (0.8-1.3) L 01/01/20 06:00 Estimated GFR > 60 ml/min 01/01/20 06:00 BUN/Creatinine Ratio 20 % 01/01/20 06:00 Glucose 95 mg/dL (75-100) 01/01/20 06:00 POC Glucose 90 (70-105) 01/01/20 00:09 Lactic Acid 1.30 mmol/L (0.7-2.0) 12/31/19 04:33 Calcium 8.1 mg/dL (8.4-10.2) L 01/01/20 06:00 Phosphorus 4.90 mg/dL (2.5-4.5) H 12/30/19 04:40 Magnesium 1.40 mg/dL (1.7-2.3) L 12/30/19 04:40 Total Bilirubin 1.00 mg/dL (0.1-1.2) 12/29/19 22:40 AST 18 units/L (5-40) 12/29/19 22:40 ALT 6 units/L (7-56) L 12/29/19 22:40 Alkaline Phosphatase 33 units/L (35-129) L 12/29/19 22:40 Total Protein 2.2 g/dL (6.3-8.2) L D 12/29/19 22:40 Albumin 1.6 g/dL (3.9-5) L 12/29/19 22:40 Albumin/Globulin Ratio 2.7 % 12/29/19 22:40 Lipase 9 units/L (13-60) L 12/29/19 14:29 Urine Color Yellow (Yellow) 12/27/19 Unknown Urine Turbidity Clear (Clear) 12/27/19 Unknown Urine pH 5.0 (5.0-7.0) 12/27/19 Unknown Ur Specific [place] > 1.059 (1.003-1.030) H 12/27/19 Unknown Urine Protein 30 mg/dl mg/dL (Negative) 12/27/19 Unknown Urine Glucose (UA) Neg mg/dL (Negative) 12/27/19 Unknown Urine Ketones 20 mg/dL (Negative) 12/27/19 Unknown Urine Blood Mod (Negative) 12/27/19 Unknown Urine Nitrite Neg (Negative) 12/27/19 Unknown Urine Bilirubin Neg (Negative) 12/27/19 Unknown Urine Urobilinogen < 2.0 mg/dL (<2.0) 12/27/19 Unknown Ur Leukocyte Esterase Neg (Negative) 12/27/19 Unknown Urine WBC (Auto) 2.0 /HPF (0.0-6.0) 12/27/19 Unknown Urine RBC (Auto) 28.0 /HPF (0.0-6.0) 12/27/19 Unknown U Epithel Cells (Auto) < 1.0 /HPF (0-13.0) 12/27/19 Unknown Urine Mucus 3+ /HPF 12/27/19 Unknown Blood Type B POSITIVE 12/29/19 19:52 Antibody Screen Negative 12/29/19 19:52 Crossmatch See Detail 12/29/19 19:52 Microbiology: Microbiology 12/29/19 23:35 Tracheal Aspirate Sputum Culture - Final 12/29/19 Unknown Peritoneal Fluid Anaerobic Culture - Preliminary 12/29/19 Unknown Peritoneal Fluid Surgical Culture - Final Escherichia Coli Azul/IV: Voiding Method Indwelling Catheter IV Catheter Type [Left Forearm INT / Saline Lock ] IV Catheter Type [Left Wrist] Peripheral IV IV Catheter Type [Right Peripheral IV Forearm] IV Catheter Type [Right Upper PICC Line arm] IV Catheter Type [Right INT / Saline Lock Antecubital] Active Medications - Current Medications Current Medications: Generic Name Dose Route Start Last Admin Trade Name Freq PRN Reason Stop Dose Admin Acetaminophen 650 mg 12/27/19 23:14 Tylenol PO Q4H PRN Pain MILD(1-3)/Fever >100.5/LAZCANO Famotidine 20 mg 12/27/19 23:45 12/31/19 21:16 Pepcid IV 20 mg BID SUSAN Administration Fentanyl 50 mcg 12/29/19 22:43 01/01/20 05:31 Sublimaze IV 50 mcg Q2HR PRN Administration Pain , Severe (7-10) Haloperidol Lactate 5 mg 12/31/19 09:19 Haldol IV Q6H PRN Agitation Hydrophilic Ointment 1 applic 12/29/19 22:33 Vaseline Lip Therapy TP Q2HR PRN Dry Lips Sodium Chloride 1,000 mls @ 100 mls/hr 12/27/19 16:15 01/01/20 06:32 Nacl 0.9% 1000 Ml IV 100 mls/hr DIRECT SUSAN Administration Piperacillin Sod/Tazobactam Sod 4.5 gm in 100 mls @ 200 mls/hr 12/29/19 22:00 01/01/20 05:40 Zosyn/Ns 4.5gm/100ml IV Infused Q8HR SUSAN Infusion Protocol Lorazepam 1 mg 12/30/19 07:33 01/01/20 05:01 Ativan IV 1 mg Q4H PRN Administration Agitation Morphine Sulfate 2 mg 12/27/19 23:14 12/31/19 00:05 Morphine IV 2 mg Q4H PRN Administration Pain, Moderate (4-6) Multi-Ingred Cream/Lotion/Oil/Oint 1 applic 12/29/19 22:33 Artificial Tears Ophth Oint OU Q4HR PRN Dry Eye(s) Nicotine 21 mg 12/31/19 10:00 12/31/19 10:42 Habitrol TD 21 mg QDAY SUSAN Administration Ondansetron HCl 4 mg 12/27/19 23:14 12/29/19 12:31 Zofran IV 4 mg Q3H PRN Administration Nausea And Vomiting Sodium Chloride 10 ml 12/28/19 10:00 01/01/20 01:10 Sodium Chloride Flush Syringe 10 Ml IV 10 ml BID SUSAN Administration Sodium Chloride 10 ml 12/27/19 23:14 12/29/19 10:40 Sodium Chloride Flush Syringe 10 Ml IV 10 ml PRN PRN Administration LINE FLUSH Nutrition/Malnutrition Assess - Dietary Evaluation Nutrition/Malnutrition Findings: Nutrition Notes Start: 12/30/19 08:57 Freq: Status: Active Protocol: Document 12/30/19 08:57 LM (Rec: 12/30/19 09:07 LM [id number]) Nutrition Notes Need for Assessment generated from: MD Order Initial or Follow up Assessment Other Pertinent Diagnosis SBO, dehydration, hx R kidney removal Current Diet NPO Labs/Tests Phos 4.9 Mg 1.4 Pertinent Medications Propofol at 2.245ml/hr (59 kcal) LR at 1000ml/hr NS at 100ml/hr MgSO4 at 25ml/hr Pepcid Height 5 ft 8 in Weight 74.843 kg [place] Body Weight (kg) 70.00 BMI 25.0 Weight Status Overweight Subjective/Other Information MD consult to evaluate nutritional intake. Pt is on the vent with NGT to LIS. Burn Absent Trauma Absent Current % PO Negligible Minimum of two criteria No physical signs of malnutrition #1 Nutrition Diagnosis Inadequate oral intake Etiology Mechanical vent, SBO As Evidenced by Signs and Symptoms Pt NPO Is patient on ventilator? Yes Is Patient Ambulatory and/or Out of Bed No REE-([place] Jeor-confined to bed) [phone] Calculation Used for Recommendations [place] or Additional Notes Protien: 90-150g (1.2-2g/kg) Fluid: 1ml/kcal Nutrition Intervention Change Diet Order: TF when medically feasible Nutrition Support: [place] 1.8 at 45ml/hr Flush 200ml q4h Kcal 1,944 Protein (gm) 87 Fluid (mL) 785 Goal #1 Start TF when medically feasible Anticipated Discharge Needs: unable to determine at this time Follow-Up By: 01/01/20 Additional Comments F/U for TF consult, vent status, Phos lab
[2020-01-01] MEDS: FAMOTIDINE 20 MG/2 ML INJ IV SCH ×2 (11:25→23:02)
[2020-01-01] MEDS: NICOTINE 21 MG/24 HR PATCH TD SCH (11:25)
--- NOTE | 2020-01-01 12:50 | Progress Note ---
Assessment and Plan - Patient Problems (1) Acute respiratory failure Current Visit: Yes Status: Acute (2) Metabolic acidosis Current Visit: Yes Status: Acute (3) Small bowel obstruction Current Visit: Yes Status: Acute Subjective Principal diagnosis: Abdominal pain small bowel obstruction Interval history: extubated doing well Objective Vital Signs - 12hr 01/01/20 01/01/20 01/01/20 01:00 01:05 01:09 Temperature Pulse Rate 81 87 Pulse Rate [ From Monitor] Respiratory 18 19 Rate Blood Pressure 109/76 109/79 O2 Sat by Pulse 100 100 Oximetry 01/01/20 01/01/20 01/01/20 01:15 01:30 01:45 Temperature Pulse Rate 86 76 84 Pulse Rate [ From Monitor] Respiratory 18 18 18 Rate Blood Pressure 109/76 116/81 109/76 O2 Sat by Pulse 100 100 100 Oximetry 01/01/20 01/01/20 01/01/20 02:00 02:09 02:15 Temperature Pulse Rate 71 74 Pulse Rate [ From Monitor] Respiratory 15 18 18 Rate Blood Pressure 112/78 112/78 O2 Sat by Pulse 100 100 Oximetry 01/01/20 01/01/20 01/01/20 02:30 02:45 03:00 Temperature Pulse Rate 81 75 91 H Pulse Rate [ From Monitor] Respiratory 18 18 18 Rate Blood Pressure 107/77 112/78 124/89 O2 Sat by Pulse 100 100 100 Oximetry 01/01/20 01/01/20 01/01/20 03:15 03:30 03:45 Temperature Pulse Rate 105 H 72 84 Pulse Rate [ From Monitor] Respiratory 21 17 16 Rate Blood Pressure 124/89 126/80 126/80 O2 Sat by Pulse 100 100 100 Oximetry 01/01/20 01/01/20 01/01/20 04:00 04:15 04:30 Temperature 98.7 F Pulse Rate 79 104 H 106 H Pulse Rate [ 98 H From Monitor] Respiratory 14 21 24 Rate Blood Pressure 117/77 117/77 123/83 O2 Sat by Pulse 100 100 100 Oximetry 01/01/20 01/01/20 01/01/20 04:45 05:00 05:05 Temperature Pulse Rate 118 H 113 H 95 H Pulse Rate [ From Monitor] Respiratory 27 H 32 H Rate Blood Pressure 123/83 123/87 123/87 O2 Sat by Pulse 100 99 99 Oximetry 01/01/20 01/01/2020 05:15 05:30 05:46 Temperature Pulse Rate 76 106 H 76 Pulse Rate [ From Monitor] Respiratory 18 21 17 Rate Blood Pressure 123/87 123/87 128/86 O2 Sat by Pulse 100 98 100 Oximetry 01/01/20 01/01/20 01/01/20 06:00 06:16 06:30 Temperature Pulse Rate 90 84 75 Pulse Rate [ From Monitor] Respiratory 17 12 18 Rate Blood Pressure 128/86 99/73 99/73 O2 Sat by Pulse 100 100 100 Oximetry 01/01/20 01/01/20 01/01/20 06:31 06:53 07:00 Temperature Pulse Rate 62 68 Pulse Rate [ From Monitor] Respiratory 18 18 18 Rate Blood Pressure 123/87 121/85 O2 Sat by Pulse 100 100 Oximetry 01/01/20 01/01/20 01/01/20 07:16 07:30 07:46 Temperature Pulse Rate 61 97 H Pulse Rate [ From Monitor] Respiratory 18 30 H 33 H Rate Blood Pressure 105/70 130/92 130/92 O2 Sat by Pulse 100 100 99 Oximetry 01/01/20 01/01/20 01/01/20 08:00 08:16 08:30 Temperature 98.7 F Pulse Rate 77 71 75 Pulse Rate [ From Monitor] Respiratory 31 H 20 20 Rate Blood Pressure 127/92 127/92 128/84 O2 Sat by Pulse 100 100 100 Oximetry 01/01/20 01/01/20 01/01/20 08:46 09:00 09:16 Temperature Pulse Rate 80 79 80 Pulse Rate [ From Monitor] Respiratory 19 19 21 Rate Blood Pressure 128/84 126/85 126/85 O2 Sat by Pulse 100 100 100 Oximetry 01/01/20 01/01/20 01/01/20 09:30 09:46 10:00 Temperature Pulse Rate 74 80 85 Pulse Rate [ From Monitor] Respiratory 20 22 24 Rate Blood Pressure 129/91 129/91 136/87 O2 Sat by Pulse 100 100 100 Oximetry 01/01/20 01/01/20 01/01/20 10:16 10:30 10:46 Temperature Pulse Rate 82 76 76 Pulse Rate [ From Monitor] Respiratory 23 30 H 24 Rate Blood Pressure 136/87 126/82 136/87 O2 Sat by Pulse 100 100 100 Oximetry 01/01/20 01/01/20 01/01/20 11:00 11:16 11:30 Temperature Pulse Rate 77 85 64 Pulse Rate [ From Monitor] Respiratory 27 H 27 H 29 H Rate Blood Pressure 135/90 135/90 131/85 O2 Sat by Pulse 100 100 100 Oximetry 01/01/20 01/01/20 11:46 12:00 Temperature Pulse Rate 81 82 Pulse Rate [ From Monitor] Respiratory 21 35 H Rate Blood Pressure 131/85 122/95 O2 Sat by Pulse 100 100 Oximetry Constitutional: no acute distress, alert Eyes: non-icteric ENT: oropharynx moist Neck: supple Effort: normal Ascultation: Bilateral: clear Percussion: Bilateral: not dull Extremities: no edema, pink and warm, pulses normal Neurologic: normal mental status, non-focal exam Psychiatric: mood appropriate CBC and BMP: 01/01/20 Unknown 01/01/20 06:00 ABG, PT/INR, D-dimer: ABG ABG pH 7.456 pH Units (7.350-7.450) H 01/01/20 05:15 POC ABG pCO2 34.7 mmHg (32.0-48.0) 12/31/19 04:03 ABG pCO2 34.1 mm Hg 01/01/20 05:15 POC ABG pO2 95.1 mmHg (83-108) 12/31/19 04:03 ABG pO2 85.3 mm Hg (80.0-90.0) 01/01/20 05:15 POC ABG HCO3 20.2 12/31/19 04:03 ABG O2 Saturation 97.1 % (95.0-99.0) 01/01/20 05:15 PT/INR, D-dimer PT 27.6 Sec. (12.2-14.9) H 12/30/19 22:30 INR 2.53 (0.87-1.13) H 12/30/19 22:30 Abnormal lab findings: Abnormal Labs 12/27/19 12/27/19 12/27/19 12:39 12:39 17:14 WBC RBC 6.38 H Hgb 18.9 H Hct 55.5 H MCHC Plt Count Lymph # (Auto) Seg Neutrophils % Seg Neuts % (Manual) 90.0 H Lymphocytes % (Manual) 5.0 L Seg Neutrophils # Man 8.2 H Lymphocytes # (Manual) 0.5 L PT INR APTT ABG pH POC ABG pO2 ABG pO2 ABG O2 Saturation ABG Base Excess ABG Hemoglobin Oxyhemoglobin Carbon Dioxide BUN 7 L Creatinine Glucose 109 H POC Glucose Lactic Acid 2.40 H* Calcium Phosphorus Magnesium ALT Alkaline Phosphatase 140 H Total Protein 5.9 L Albumin 3.4 L Lipase Ur Specific [place] Crossmatch 12/27/19 12/27/19 12/28/19 19:07 Unknown 04:35 WBC RBC 5.63 H Hgb 16.5 H Hct 49.5 H D MCHC Plt Count Lymph # (Auto) 0.9 L Seg Neutrophils % 78.8 H Seg Neuts % (Manual) Lymphocytes % (Manual) Seg Neutrophils # Man Lymphocytes # (Manual) PT INR APTT ABG pH POC ABG pO2 ABG pO2 ABG O2 Saturation ABG Base Excess ABG Hemoglobin Oxyhemoglobin Carbon Dioxide BUN Creatinine Glucose POC Glucose Lactic Acid 2.10 H* Calcium Phosphorus Magnesium ALT Alkaline Phosphatase Total Protein Albumin Lipase Ur Specific [place] > 1.059 H Crossmatch 12/28/19 12/29/19 12/29/19 04:35 14:29 14:29 WBC RBC Hgb Hct MCHC Plt Count Lymph # (Auto) Seg Neutrophils % Seg Neuts % (Manual) Lymphocytes % (Manual) Seg Neutrophils # Man Lymphocytes # (Manual) PT INR APTT ABG pH POC ABG pO2 ABG pO2 ABG O2 Saturation ABG Base Excess ABG Hemoglobin Oxyhemoglobin Carbon Dioxide BUN Creatinine Glucose POC Glucose Lactic Acid 4.60 H* Calcium Phosphorus Magnesium ALT Alkaline Phosphatase Total Protein 5.1 L Albumin 2.9 L Lipase 9 L Ur Specific [place] Crossmatch 12/29/19 12/29/19 12/29/19 14:29 19:52 22:05 WBC RBC Hgb Hct MCHC Plt Count Lymph # (Auto) Seg Neutrophils % Seg Neuts % (Manual) Lymphocytes % (Manual) Seg Neutrophils # Man Lymphocytes # (Manual) PT INR APTT ABG pH POC ABG pO2 ABG pO2 46.8 L ABG O2 Saturation 82.6 L ABG Base Excess -3.5 L ABG Hemoglobin Oxyhemoglobin 81.0 L Carbon Dioxide BUN Creatinine Glucose POC Glucose Lactic Acid Calcium Phosphorus Magnesium ALT Alkaline Phosphatase Total Protein 4.6 L Albumin 2.3 L Lipase Ur Specific [place] Crossmatch See Detail 12/29/19 12/29/19 12/30/19 22:40 22:40 03:15 WBC RBC Hgb Hct MCHC Plt Count Lymph # (Auto) Seg Neutrophils % Seg Neuts % (Manual) Lymphocytes % (Manual) Seg Neutrophils # Man Lymphocytes # (Manual) PT INR APTT ABG pH POC ABG pO2 225.8 H ABG pO2 ABG O2 Saturation ABG Base Excess ABG Hemoglobin Oxyhemoglobin Carbon Dioxide BUN Creatinine Glucose 115 H POC Glucose Lactic Acid 4.20 H* Calcium 6.9 L D Phosphorus Magnesium ALT 6 L Alkaline Phosphatase 33 L Total Protein 2.2 L D Albumin 1.6 L Lipase Ur Specific [place] Crossmatch 12/30/19 12/30/19 12/30/19 04:40 04:40 04:40 WBC 2.0 L RBC 5.12 H Hgb 15.3 H Hct MCHC Plt Count 124 L Lymph # (Auto) Seg Neutrophils % Seg Neuts % (Manual) Lymphocytes % (Manual) Seg Neutrophils # Man Lymphocytes # (Manual) PT INR APTT ABG pH POC ABG pO2 ABG pO2 ABG O2 Saturation ABG Base Excess ABG Hemoglobin Oxyhemoglobin Carbon Dioxide 21 L BUN Creatinine Glucose POC Glucose Lactic Acid 3.60 H* Calcium 7.0 L Phosphorus 4.90 H Magnesium 1.40 L ALT Alkaline Phosphatase Total Protein Albumin Lipase Ur Specific [place] Crossmatch 12/30/19 12/31/19 12/31/19 22:30 04:03 12:15 WBC RBC 3.43 L Hgb 10.2 L D Hct 29.5 L D MCHC 35 H Plt Count 62 L Lymph # (Auto) Seg Neutrophils % Seg Neuts % (Manual) Lymphocytes % (Manual) Seg Neutrophils # Man Lymphocytes # (Manual) PT 27.6 H INR 2.53 H APTT 42.2 H ABG pH POC ABG pO2 ABG pO2 ABG O2 Saturation ABG Base Excess ABG Hemoglobin 11.4 L Oxyhemoglobin Carbon Dioxide BUN Creatinine Glucose POC Glucose Lactic Acid Calcium Phosphorus Magnesium ALT Alkaline Phosphatase Total Protein Albumin Lipase Ur Specific [place] Crossmatch 12/31/19 12/31/19 01/01/20 12:15 21:29 05:15 WBC RBC Hgb Hct MCHC Plt Count Lymph # (Auto) Seg Neutrophils % Seg Neuts % (Manual) Lymphocytes % (Manual) Seg Neutrophils # Man Lymphocytes # (Manual) PT INR APTT ABG pH 7.456 H POC ABG pO2 ABG pO2 ABG O2 Saturation ABG Base Excess ABG Hemoglobin 6.9 L Oxyhemoglobin Carbon Dioxide BUN Creatinine Glucose 52 L POC Glucose 63 L Lactic Acid Calcium 8.2 L D Phosphorus Magnesium ALT Alkaline Phosphatase Total Protein Albumin Lipase Ur Specific [place] Crossmatch 01/01/20 01/01/20 01/01/20 06:00 06:00 Unknown WBC RBC 3.19 L Hgb 9.6 L Hct 27.2 L MCHC 35 H Plt Count 42 L Lymph # (Auto) Seg Neutrophils % Seg Neuts % (Manual) 93.0 H Lymphocytes % (Manual) 1.0 L Seg Neutrophils # Man 9.8 H Lymphocytes # (Manual) 0.1 L PT INR APTT ABG pH POC ABG pO2 ABG pO2 ABG O2 Saturation ABG Base Excess ABG Hemoglobin Oxyhemoglobin Carbon Dioxide BUN Creatinine 0.7 L Glucose POC Glucose Lactic Acid Calcium 8.1 L Phosphorus 2.10 L Magnesium 2.40 H ALT Alkaline Phosphatase Total Protein Albumin Lipase Ur Specific [place] Crossmatch
[2020-01-01 19:37] LABS: Hematocrit 30.4 % (35.5-45.6); Hemoglobin 10.5 gm/dl (11.8-15.2); Mean Corpuscular HGB Conc 35 % (32-34); Mean Corpuscular Volume 87 fl (84-94); Red Blood Count 3.51 M/mm3 (3.65-5.03); Red Cell Distribution Width 14.8 % (13.2-15.2)
[2020-01-01 19:43] LABS: Basophils % (Auto) 0.2 % (0.0-1.8); Eosinophils % (Auto) 0.2 % (0.0-4.3); Lymphocytes # (Auto) 0.4 K/mm3 (1.2-5.4); Lymphocytes % (Auto) 2.8 % (13.4-35.0); Monocytes # (Auto) 14.8 K/mm3 (0.0-0.8); Monocytes % (Auto) 14.8 % (0.0-7.3); Platelet Count 42 K/mm3 (140-440)
[2020-01-01] MEDS ORDERED: TOTAL PARENTERAL NUTRITION 2,400 ML IV SCH (20:00)
[2020-01-02] MEDS: MORPHINE 2 MG/1 ML INJ IV PRN ×5 (01:06→21:44)
[2020-01-02] MEDS: PIPERACIL/TAZOBACTA 4.5/NS 100 4.5 GM/100 ML VIAL IV SCH (07:15)
[2020-01-02 07:31] LABS: Blood Urea Nitrogen 19 mg/dL (9-20); Calcium 8.2 mg/dL (8.4-10.2); Hemolysis Index 2
[2020-01-02 07:36] LABS: BUN/Creatinine Ratio 32
--- NOTE | 2020-01-02 08:14 | Progress Note ---
Assessment and Plan hemodyn stable, ostomies appear viable hold chemical DVT prophylaxis, platelets 42K- no evidence of active bleeding patient pulled out NG, OK to leave out, do not reinsert, low platelets and minimal benefit at this point NPO! ice chips OK Continue TPN D/C zosyn, change to levaquin and flagyll for now D/C villegas Check CBC Fall precautions if platelets continue to drop consider Hematology consult Path still pending. Subjective Date of service: 01/02/20 Patient Reports: Positive: feels better Objective Vital Signs - 12hr 01/02/20 01/02/20 00:20 05:05 Temperature 98.6 F 98.6 F Pulse Rate 91 H 89 Respiratory 17 20 Rate Blood Pressure 119/79 102/72 O2 Sat by Pulse 99 100 Oximetry - General physical appearance no distress - Eyes PERRL, normal occular movement - ENT normal pinna, normal nares, normal mucosa, no hearing loss, no congestion - Neck no masses, no bruits, trachea midline, no lymphadectomy, no venous distension - Respiratory normal expansion, normal respiratory effort, clear to percussion, clear to auscultation - Abdomen soft, bowel sounds hypoactive, other (both ostomies OK, venous congestion, appear viable, minimal output) - Neurologic other (seems sedated from ativan, will speak and answer questions) - Labs 01/01/20 Unknown 01/02/20 05:00 Diabetes panel 01/02/20 Range/Units 05:00 Sodium 138 (137-145) mmol/L Potassium 4.2 (3.6-5.0) mmol/L Chloride 102.4 (98-107) mmol/L Carbon Dioxide 29 (22-30) mmol/L BUN 19 (9-20) mg/dL Creatinine 0.6 L (0.8-1.3) mg/dL Glucose 115 H (75-100) mg/dL Calcium 8.2 L (8.4-10.2) mg/dL Calcium panel 01/01/20 01/02/20 Range/Units 06:00 05:00 Calcium 8.2 L (8.4-10.2) mg/dL Phosphorus 2.10 L 2.50 (2.5-4.5) mg/dL Pituitary panel 01/02/20 Range/Units 05:00 Sodium 138 (137-145) mmol/L Potassium 4.2 (3.6-5.0) mmol/L Chloride 102.4 (98-107) mmol/L Carbon Dioxide 29 (22-30) mmol/L BUN 19 (9-20) mg/dL Creatinine 0.6 L (0.8-1.3) mg/dL Glucose 115 H (75-100) mg/dL Calcium 8.2 L (8.4-10.2) mg/dL Adrenal panel 01/02/20 Range/Units 05:00 Sodium 138 (137-145) mmol/L Potassium 4.2 (3.6-5.0) mmol/L Chloride 102.4 (98-107) mmol/L Carbon Dioxide 29 (22-30) mmol/L BUN 19 (9-20) mg/dL Creatinine 0.6 L (0.8-1.3) mg/dL Glucose 115 H (75-100) mg/dL Calcium 8.2 L (8.4-10.2) mg/dL
--- NOTE | 2020-01-02 08:33 | Progress Note ---
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 Patient states for the past 2 days he has had some abdominal distention in the right lower quadrant and crampy 10 out of 10 pain. He has had multiple episodes of nausea and vomiting. Denies fever chills cough cold or congestion. On December 30, [address] showed patient to have free air in colon. Surgical intervention was required. Patient had surgery had partial hemicolectomy during exploratory laparotomy was subsequently intubated and transferred to the intensive care unit. On December 31, 2019 patient returned to the OR for an additional surgery. After initial extubation. Patient was not follow commands agitated unable to really protect airways and therefore was reintubated. (1) Small bowel obstruction Current Visit: Yes Status: Acute Plan to address problem: Status post exploratory lap x3. C surgery note. Some ischemic bowel. Hemicolectomy. Fistula washed out. (2) Dehydration Current Visit: Yes Status: Resolved Plan to address problem: Patient well-hydrated. Fluid volumes stable ins and outs stable. (3) Acute Metabolic Encephalopathy with subsequent acute respiratory failure Patient extubated successfully downgraded to MedSur. Advised nursing staff to continue monitoring mental status. (4) Metabolic acidosis Current Visit: Yes Status: Acute Plan to address problem: Has improved from 4.6-3. Post surgery. (5) ANEMIA -precipitous drop in hemoglobin stable (6) Thrombocytopenia Monitor closely. IF persistent decline will consult Enoch ARREOLA Telehematologist. In the mean time will request HIT and continue to hold off chemical prophylaxis. Will obtain PT/OT considering recent fall. (7) DVT prophylaxis Current Visit: Yes Status: Acute Plan to address problem: Anticoagulation being held secondary to surgery and risk of bleeding. History Interval history: Patient seen and examined, awakens on name, no additional issues, still drowsy, off restraints Hospitalist Physical - Physical exam Narrative exam: VITAL SIGNS: Reviewed. GENERAL: The patient appears normally developed, otherwise lethargic vital signs as documented. HEAD: No signs of head trauma. EYES: Pupils are equal. Extraocular motions intact. EARS: Hearing grossly intact. MOUTH: Oropharynx is normal. NECK: No adenopathy, no JVD. CHEST: Chest with diminished breath sounds bilaterally. No wheezes, rales, or rhonchi. CARDIAC: Regular rate and rhythm. S1 and S2, without murmurs, gallops, or rubs. VASCULAR: No Edema. Peripheral pulses normal and equal in all extremities. ABDOMEN: Soft, nondistended mildly tender hypoactive bowel sounds. Abdominal dressing intact and did not take down. Review of surgeons notes shows that both ostomies are viable. No significant output noted.. MUSCULOSKELETAL: Good range of motion of all major joints. Extremities without clubbing, cyanosis or edema. NEUROLOGIC EXAM: Alert and oriented x 3 but otherwise was drowsy this morning no focal sensory or strength deficits. Speech normal. Follows commands. PSYCHIATRIC: Mood normal. SKIN: detail exam as documented in skin assessment - Constitutional Vitals: Temp Pulse Resp BP Pulse Ox 98.6 F 89 20 102/72 100 01/02/20 05:05 01/02/20 05:05 01/02/20 05:05 01/02/20 05:05 01/02/20 05:05 General appearance: Present: other (Intubated no acute distress.) Results - Labs CBC & Chem 7: 01/03/20 06:00 01/03/20 04:00 Labs: Laboratory Last Values WBC 10.5 K/mm3 (4.5-11.0) 01/01/20 Unknown RBC 3.19 M/mm3 (3.65-5.03) L 01/01/20 Unknown Hgb 9.6 gm/dl (11.8-15.2) L 01/01/20 Unknown Hct 27.2 % (35.5-45.6) L 01/01/20 Unknown MCV 85 fl (84-94) 01/01/20 Unknown MCH 30 pg (28-32) 01/01/20 Unknown MCHC 35 % (32-34) H 01/01/20 Unknown RDW 15.1 % (13.2-15.2) 01/01/20 Unknown Plt Count 42 K/mm3 (140-440) L 01/01/20 Unknown Lymph % (Auto) 2.8 % (13.4-35.0) L 01/01/20 19:11 [place] % (Auto) 14.8 % (0.0-7.3) H 01/01/20 19:11 Eos % (Auto) 0.2 % (0.0-4.3) 01/01/20 19:11 Baso % (Auto) 0.2 % (0.0-1.8) 01/01/20 19:11 Lymph # (Auto) 0.4 K/mm3 (1.2-5.4) L 01/01/20 19:11 [place] # (Auto) 14.8 K/mm3 (0.0-0.8) H 01/01/20 19:11 Eos # (Auto) 0.0 K/mm3 (0.0-0.4) 01/01/20 19:11 Baso # (Auto) 0.0 K/mm3 (0.0-0.1) 01/01/20 19:11 Add Manual Diff Complete 01/01/20 Unknown Total Counted 100 01/01/20 Unknown Seg Neutrophils % Byproducts Operator 01/01/20 Unknown Seg Neuts % (Manual) 93.0 % (40.0-70.0) H 01/01/20 Unknown Band Neutrophils % 0 % 01/01/20 Unknown Lymphocytes % (Manual) 1.0 % (13.4-35.0) L 01/01/20 Unknown Reactive Lymphs % (Man) 0 % 01/01/20 Unknown Monocytes % (Manual) 6.0 % (0.0-7.3) 01/01/20 Unknown Eosinophils % (Manual) 0 % (0.0-4.3) 01/01/20 Unknown Basophils % (Manual) 0 % (0.0-1.8) 01/01/20 Unknown Metamyelocytes % 0 % 01/01/20 Unknown Myelocytes % 0 % 01/01/20 Unknown Promyelocytes % 0 % 01/01/20 Unknown Blast Cells % 0 % 01/01/20 Unknown Nucleated RBC % Not Reportable 01/01/20 Unknown Seg Neutrophils # 12.7 K/mm3 (1.8-7.7) H 01/01/20 19:11 Seg Neutrophils # Man 9.8 K/mm3 (1.8-7.7) H 01/01/20 Unknown Band Neutrophils # 0.0 K/mm3 01/01/20 Unknown Lymphocytes # (Manual) 0.1 K/mm3 (1.2-5.4) L 01/01/20 Unknown Abs React Lymphs (Man) 0.0 K/mm3 01/01/20 Unknown Monocytes # (Manual) 0.6 K/mm3 (0.0-0.8) 01/01/20 Unknown Eosinophils # (Manual) 0.0 K/mm3 (0.0-0.4) 01/01/20 Unknown Basophils # (Manual) 0.0 K/mm3 (0.0-0.1) 01/01/20 Unknown Metamyelocytes # 0.0 K/mm3 01/01/20 Unknown Myelocytes # 0.0 K/mm3 01/01/20 Unknown Promyelocytes # 0.0 K/mm3 01/01/20 Unknown Blast Cells # 0.0 K/mm3 01/01/20 Unknown WBC Morphology Not Reportable 01/01/20 Unknown Hypersegmented Neuts Not Reportable 01/01/20 Unknown Hyposegmented Neuts Not Reportable 01/01/20 Unknown Hypogranular Neuts Not Reportable 01/01/20 Unknown Smudge Cells Not Reportable 01/01/20 Unknown Toxic Granulation Not Reportable 01/01/20 Unknown Toxic Vacuolation Not Reportable 01/01/20 Unknown Dohle Bodies Not Reportable 01/01/20 Unknown Pelger-Huet Anomaly Not Reportable 01/01/20 Unknown Anuradha Rods Not Reportable 01/01/20 Unknown Platelet Estimate Consistent w auto 01/01/20 Unknown Clumped Platelets Not Reportable 01/01/20 Unknown Plt Clumps, EDTA Not Reportable 01/01/20 Unknown Large Platelets Not Reportable 01/01/20 Unknown Giant Platelets Not Reportable 01/01/20 Unknown Platelet Satelliting Not Reportable 01/01/20 Unknown Plt Morphology Comment Not Reportable 01/01/20 Unknown RBC Morphology Not Reportable 01/01/20 Unknown Dimorphic RBCs Not Reportable 01/01/20 Unknown Polychromasia Not Reportable 01/01/20 Unknown Hypochromasia Not Reportable 01/01/20 Unknown Poikilocytosis Not Reportable 01/01/20 Unknown Anisocytosis Not Reportable 01/01/20 Unknown Microcytosis Not Reportable 01/01/20 Unknown Macrocytosis Not Reportable 01/01/20 Unknown Spherocytes Not Reportable 01/01/20 Unknown Pappenheimer Bodies Not Reportable 01/01/20 Unknown Sickle Cells Not Reportable 01/01/20 Unknown Target Cells Few 01/01/20 Unknown Tear Drop Cells Not Reportable 01/01/20 Unknown Ovalocytes Few 01/01/20 Unknown Helmet Cells Not Reportable 01/01/20 Unknown [place] Bodies Not Reportable 01/01/20 Unknown [place] Rings Not Reportable 01/01/20 Unknown [place] Cells Few 01/01/20 Unknown Bite Cells Not Reportable 01/01/20 Unknown Crenated Cell Not Reportable 01/01/20 Unknown Elliptocytes Not Reportable 01/01/20 Unknown Acanthocytes (Spur) Not Reportable 01/01/20 Unknown Rouleaux Not Reportable 01/01/20 Unknown Hemoglobin C Crystals Not Reportable 01/01/20 Unknown Schistocytes Rare 01/01/20 Unknown Malaria parasites Not Reportable 01/01/20 Unknown Christ Bodies Not Reportable 01/01/20 Unknown Hem Pathologist Commnt No 01/01/20 Unknown PT 27.6 Sec. (12.2-14.9) H 12/30/19 22:30 INR 2.53 (0.87-1.13) H 12/30/19 22:30 APTT 42.2 Sec. (24.2-36.6) H 12/30/19 22:30 ABG pH 7.456 pH Units (7.350-7.450) H 01/01/20 05:15 POC ABG pCO2 34.7 mmHg (32.0-48.0) 12/31/19 04:03 ABG pCO2 34.1 mm Hg 01/01/20 05:15 POC ABG pO2 95.1 mmHg (83-108) 12/31/19 04:03 ABG pO2 85.3 mm Hg (80.0-90.0) 01/01/20 05:15 POC ABG HCO3 20.2 12/31/19 04:03 ABG HCO3 23.5 mmol/L (20.0-26.0) 01/01/20 05:15 ABG O2 Saturation 97.1 % (95.0-99.0) 01/01/20 05:15 ABG O2 Content 9.4 (0.0-44) 01/01/20 05:15 POC ABG Base Excess -4.2 12/31/19 04:03 ABG Base Excess -0.3 mmol/L (-2.0-3.0) 01/01/20 05:15 ABG Hemoglobin 6.9 gm/dl (14.0-18.0) L 01/01/20 05:15 ABG Carboxyhemoglobin 1.4 % (0.0-5.0) 01/01/20 05:15 ABG Methemoglobin 0.7 % (0.0-1.5) 01/01/20 05:15 Oxyhemoglobin 95.0 % (95.0-99.0) 01/01/20 05:15 FiO2 35 % 01/01/20 05:15 Sodium 138 mmol/L (137-145) 01/02/20 05:00 Potassium 4.2 mmol/L (3.6-5.0) 01/02/20 05:00 Chloride 102.4 mmol/L (98-107) 01/02/20 05:00 Carbon Dioxide 29 mmol/L (22-30) 01/02/20 05:00 Anion Gap 11 mmol/L 01/02/20 05:00 BUN 19 mg/dL (9-20) 01/02/20 05:00 Creatinine 0.6 mg/dL (0.8-1.3) L 01/02/20 05:00 Estimated GFR > 60 ml/min 01/02/20 05:00 BUN/Creatinine Ratio 32 % 01/02/20 05:00 Glucose 115 mg/dL (75-100) H 01/02/20 05:00 POC Glucose 90 (70-105) 01/01/20 00:09 Lactic Acid 1.30 mmol/L (0.7-2.0) 12/31/19 04:33 Calcium 8.2 mg/dL (8.4-10.2) L 01/02/20 05:00 Phosphorus 2.50 mg/dL (2.5-4.5) 01/02/20 05:00 Magnesium 1.90 mg/dL (1.7-2.3) 01/02/20 05:00 Total Bilirubin 1.00 mg/dL (0.1-1.2) 12/29/19 22:40 AST 18 units/L (5-40) 12/29/19 22:40 ALT 6 units/L (7-56) L 12/29/19 22:40 Alkaline Phosphatase 33 units/L (35-129) L 12/29/19 22:40 Total Protein 2.2 g/dL (6.3-8.2) L D 12/29/19 22:40 Albumin 1.6 g/dL (3.9-5) L 12/29/19 22:40 Albumin/Globulin Ratio 2.7 % 12/29/19 22:40 Lipase 9 units/L (13-60) L 12/29/19 14:29 Urine Color Yellow (Yellow) 12/27/19 Unknown Urine Turbidity Clear (Clear) 12/27/19 Unknown Urine pH 5.0 (5.0-7.0) 12/27/19 Unknown Ur Specific [place] > 1.059 (1.003-1.030) H 12/27/19 Unknown Urine Protein 30 mg/dl mg/dL (Negative) 12/27/19 Unknown Urine Glucose (UA) Neg mg/dL (Negative) 12/27/19 Unknown Urine Ketones 20 mg/dL (Negative) 12/27/19 Unknown Urine Blood Mod (Negative) 12/27/19 Unknown Urine Nitrite Neg (Negative) 12/27/19 Unknown Urine Bilirubin Neg (Negative) 12/27/19 Unknown Urine Urobilinogen < 2.0 mg/dL (<2.0) 12/27/19 Unknown Ur Leukocyte Esterase Neg (Negative) 12/27/19 Unknown Urine WBC (Auto) 2.0 /HPF (0.0-6.0) 12/27/19 Unknown Urine RBC (Auto) 28.0 /HPF (0.0-6.0) 12/27/19 Unknown U Epithel Cells (Auto) < 1.0 /HPF (0-13.0) 12/27/19 Unknown Urine Mucus 3+ /HPF 12/27/19 Unknown Blood Type B POSITIVE 12/29/19 19:52 Antibody Screen Negative 12/29/19 19:52 Crossmatch See Detail 12/29/19 19:52 Microbiology: Microbiology 12/29/19 23:35 Tracheal Aspirate Sputum Culture - Final Azul/IV: Voiding Method Indwelling Catheter IV Catheter Type [Left Forearm INT / Saline Lock ] IV Catheter Type [Left Wrist] Peripheral IV IV Catheter Type [Right Peripheral IV Forearm] IV Catheter Type [Right Upper PICC Line arm] IV Catheter Type [Right INT / Saline Lock Antecubital] Active Medications - Current Medications Current Medications: Generic Name Dose Route Start Last Admin Trade Name Freq PRN Reason Stop Dose Admin Acetaminophen 650 mg 12/27/19 23:14 Tylenol PO Q4H PRN Pain MILD(1-3)/Fever >100.5/LAZCANO Famotidine 20 mg 12/27/19 23:45 01/01/20 23:02 Pepcid IV 20 mg BID SUSAN Administration Haloperidol Lactate 5 mg 12/31/19 09:19 Haldol IV Q6H PRN Agitation Hydrophilic Ointment 1 applic 12/29/19 22:33 Vaseline Lip Therapy TP Q2HR PRN Dry Lips Amino Acids/Electrolytes/Dextrose 2,400 mls @ 100 mls/hr 01/01/20 20:00 01/01/20 22:01 Tpn Adult IV 01/02/20 19:59 100 mls/hr DAILY@2000 [facility] Administration Protocol Levofloxacin/Dextrose 500 mg in 100 mls @ 100 mls/hr 01/02/20 10:00 Levaquin 500mg/100ml IV 01/07/20 09:59 Q24HR [facility] Protocol Metronidazole 500 mg in 100 mls @ 100 mls/hr 01/02/20 14:00 Flagyl 500 Mg/100 Ml IV 01/07/20 13:59 Q8HR [facility] Protocol Lorazepam 1 mg 12/30/19 07:33 01/01/20 05:01 Ativan IV 1 mg Q4H PRN Administration Agitation Morphine Sulfate 2 mg 12/27/19 23:14 01/02/20 07:04 Morphine IV 2 mg Q4H PRN Administration Pain, Moderate (4-6) Multi-Ingred Cream/Lotion/Oil/Oint 1 applic 12/29/19 22:33 Artificial Tears Ophth Oint OU Q4HR PRN Dry Eye(s) Nicotine 21 mg 12/31/19 10:00 01/01/20 11:25 Habitrol TD 21 mg QDAY SUSAN Administration Ondansetron HCl 4 mg 12/27/19 23:14 12/29/19 12:31 Zofran IV 4 mg Q3H PRN Administration Nausea And Vomiting Sodium Chloride 10 ml 12/28/19 10:00 01/01/20 23:02 Sodium Chloride Flush Syringe 10 Ml IV 10 ml BID SUSAN Administration Sodium Chloride 10 ml 12/27/19 23:14 09/26/20 10:40 Sodium Chloride Flush Syringe 10 Ml IV 10 ml PRN PRN Administration LINE FLUSH Nutrition/Malnutrition Assess - Dietary Evaluation Nutrition/Malnutrition Findings: Nutrition Notes Start: 12/30/19 08:57 Freq: Status: Active Protocol: Document 01/01/20 14:35 ZO (Rec: 01/01/20 14:44 ZO [email or web address]) Nutrition Notes Need for Assessment generated from: MD Order Initial or Follow up Reassessment Other Pertinent Diagnosis SBO s/p hemicolectomy Current Diet NPO Labs/Tests Phos 2.1 Mg 2.4 Pertinent Medications NS at 100ml/hr Height 5 ft 8 in Weight 74.843 kg [place] Body Weight (kg) 70.00 BMI 25.0 Subjective/Other Information RD consulted for TPN. Pt extubated this am. Day 5 NPO; NGT to LIS. PICC line in place. Burn Absent Trauma Absent #1 Nutrition Diagnosis Inadequate oral intake Diagnosis Progress(for reassessment Continues documentation) Is patient on ventilator? No Is Patient Ambulatory and/or Out of Bed No REE-([facility]-confined to bed) 1968.360 Calculation Used for Recommendations [facility] Additional Notes Protein needs 1.2-2g/k- 150g Fluid needs 1ml/kcal Nutrition Intervention Nutrition Support: Start PN at 100ml/hr: 3% amino acids, 6% dextrose, 75mEq Na, 20mEq K, 40mmol Phos, 50%/50% chloride/acetate, MVI, Thiamine. Osmolality: 692. D /C IVF once PPN starts. Kcal 798 Protein (gm) 72 Carbohydrates (gm) 150 Fat (gm) 0 Fluid (mL) 2,400 Fiber (gm) 0 Goal #1 PN to meet nutrient needs as best possible Follow-Up By: 01/02/20 Additional Comments Labs in am: BMP, Mg, Phos Check to see if PN infusing via central line
[2020-01-02 09:58] LABS: Hematocrit 27.5 % (35.5-45.6); Hemoglobin 9.3 gm/dl (11.8-15.2); Mean Corpuscular HGB Conc 34 % (32-34); Mean Corpuscular Volume 87 fl (84-94); Red Blood Count 3.16 M/mm3 (3.65-5.03); Red Cell Distribution Width 15.1 % (13.2-15.2)
[2020-01-02 10:02] LABS: Platelet Count 25 K/mm3 (140-440)
[2020-01-02 10:35] LABS: Total Cells Counted 100
[2020-01-02 10:36] LABS: Anisocytosis 1+; Basophils % (Manual) 0 % (0.0-1.8); Burr Cells Few; Eosinophils % (Manual) 0 % (0.0-4.3); Ovalocytes Few; Poikilocytosis 1+; Target Cells Few
[2020-01-02 10:37] LABS: Platelet Estimate Consistent w Auto
[2020-01-02] MEDS: FAMOTIDINE 20 MG/2 ML INJ IV SCH ×2 (11:51→21:08)
[2020-01-02] MEDS: NICOTINE 21 MG/24 HR PATCH TD SCH (11:52)
[2020-01-02] MEDS: metroNIDAZOLE/NS 500 MG/100 ML 500 MG/100 ML BAG IV SCH ×2 (13:26→21:08)
[2020-01-02] MEDS: ONDANSETRON 4 MG/2 ML INJ IV PRN ×2 (17:25→21:44)
[2020-01-02] MEDS ORDERED: TOTAL PARENTERAL NUTRITION 2,400 ML IV SCH (20:00)
--- NOTE | 2020-01-02 21:33 | Event Note ---
Date: 01/02/20 Repeat platelet count continues to drop, Please consult Floor Specialist in am ( I do not know who is still on staff for Hematology), no chemical prophylaxis for DVT since platelets are now down to 25K.
[2020-01-03] MEDS: MORPHINE 2 MG/1 ML INJ IV PRN ×5 (03:46→21:34)
[2020-01-03] MEDS: metroNIDAZOLE/NS 500 MG/100 ML 500 MG/100 ML BAG IV SCH ×3 (05:21→21:08)
[2020-01-03 06:09] LABS: Blood Urea Nitrogen 20 mg/dL (9-20); Calcium 7.7 mg/dL (8.4-10.2); Hemolysis Index 3
[2020-01-03 06:11] LABS: BUN/Creatinine Ratio 33
[2020-01-03 06:12] LABS: Hematocrit 27.5 % (35.5-45.6); Hemoglobin 9.5 gm/dl (11.8-15.2); Mean Corpuscular HGB Conc 35 % (32-34); Mean Corpuscular Volume 86 fl (84-94); Red Blood Count 3.22 M/mm3 (3.65-5.03); Red Cell Distribution Width 15.1 % (13.2-15.2)
[2020-01-03 06:13] LABS: Platelet Count 36 K/mm3 (140-440)
[2020-01-03 06:14] LABS: Basophils % (Auto) 0.2 % (0.0-1.8); Eosinophils % (Auto) 0.2 % (0.0-4.3); Lymphocytes # (Auto) 0.4 K/mm3 (1.2-5.4); Lymphocytes % (Auto) 4.4 % (13.4-35.0); Monocytes # (Auto) 2.8 K/mm3 (0.0-0.8); Monocytes % (Auto) 28.3 % (0.0-7.3)
--- NOTE | 2020-01-03 07:56 | Progress Note ---
Assessment and Plan Assessment and plan: Patient is a 39-year-old F [place] male with a past medical history of right- sided nephrectomy status post Wilms tumor and appendectomy both of which occurred in the late 80s who is presenting with abdominal pain. Patient states for the past 2 days he has had some abdominal distention in the right lower quadrant and crampy 10 out of 10 pain. He has had multiple episodes of nausea and vomiting. Denies fever chills cough cold or congestion. On December 30, [address] showed patient to have free air in colon. Surgical intervention was required. Patient had surgery had partial hemicolectomy during exploratory laparotomy was subsequently intubated and transferred to the intensive care unit. On December 31, 2019 patient returned to the OR for an additional surgery. After initial extubation. Patient was not follow commands agitated unable to really protect airways and therefore was reintubated. 01/02: s/p 2 UNITS OF FFP, Mild improvement in PLT, FOLLOW HIT. Monitor AM labs, Consult Dr Kendall if plt continues to drop. Low grade fever noted, will monitor, Room changed to better monitor risk of fall as patient still with some lethargy. ABG checked yesterday, did not reflect elevated CO2 (1) Small bowel obstruction Current Visit: Yes Status: Acute Plan to address problem: Status post exploratory lap x3. C surgery note. Some ischemic bowel. Hemicolectomy. Fistula washed out. (2) Dehydration Current Visit: Yes Status: Resolved Plan to address problem: Patient well-hydrated. Fluid volumes stable ins and outs stable. (3) Acute Metabolic Encephalopathy with subsequent acute respiratory failure Patient extubated successfully downgraded to MedSur. Advised nursing staff to continue monitoring mental status. (4) Metabolic acidosis Current Visit: Yes Status: Acute Plan to address problem: Has improved from 4.6-3. Post surgery. (5) ANEMIA -precipitous drop in hemoglobin stable (6) Thrombocytopenia Monitor closely. IF persistent decline will consult Enoch ARREOLA Telehematologist. In the mean time will request HIT and continue to hold off c hemical prophylaxis. Will obtain PT/OT considering recent fall. (7) DVT prophylaxis Current Visit: Yes Status: Acute Plan to address problem: Anticoagulation being held secondary to surgery and risk of bleeding. History Interval history: Patient seen and examined, awakens on name, very lethargic, requiring 2 people assist. Hospitalist Physical - Physical exam Narrative exam: VITAL SIGNS: Reviewed. GENERAL: The patient appears normally developed, otherwise lethargic vital signs as documented. HEAD: No signs of head trauma. EYES: Pupils are equal. Extraocular motions intact. EARS: Hearing grossly intact. MOUTH: Oropharynx is normal. NECK: No adenopathy, no JVD. CHEST: Chest with diminished breath sounds bilaterally. No wheezes, rales, or rhonchi. CARDIAC: Regular rate and rhythm. S1 and S2, without murmurs, gallops, or rubs. VASCULAR: No Edema. Peripheral pulses normal and equal in all extremities. ABDOMEN: Soft, nondistended mildly tender hypoactive bowel sounds. Abdominal dressing intact and did not take down. Review of surgeons notes shows that both ostomies are viable. No significant output noted.. MUSCULOSKELETAL: Good range of motion of all major joints. Extremities without clubbing, cyanosis or edema. NEUROLOGIC EXAM: Alert and oriented x 3 but otherwise very lethargic requiring two people assist this morning no focal sensory or strength deficits. Speech normal. Follows commands. PSYCHIATRIC: Mood normal. SKIN: detail exam as documented in skin assessment - Constitutional Vitals: Temp Pulse Resp BP Pulse Ox 99.0 F 107 H 17 94/64 96 01/03/20 05:31 01/03/20 05:31 01/03/20 05:31 01/03/20 05:31 01/03/20 05:31 General appearance: Present: other (Intubated no acute distress.) Results - Labs CBC & Chem 7: 01/03/20 06:00 01/03/20 04:00 Labs: Laboratory Last Values WBC 9.8 K/mm3 (4.5-11.0) 01/03/20 06:00 RBC 3.22 M/mm3 (3.65-5.03) L 01/03/20 06:00 Hgb 9.5 gm/dl (11.8-15.2) L 01/03/20 06:00 Hct 27.5 % (35.5-45.6) L 01/03/20 06:00 MCV 86 fl (84-94) 01/03/20 06:00 MCH 30 pg (28-32) 01/03/20 06:00 MCHC 35 % (32-34) H 01/03/20 06:00 RDW 15.1 % (13.2-15.2) 01/03/20 06:00 Plt Count 36 K/mm3 (140-440) L 01/03/20 06:00 Lymph % (Auto) 4.4 % (13.4-35.0) L 01/03/20 06:00 Nobles % (Auto) 28.3 % (0.0-7.3) H 01/03/20 06:00 Eos % (Auto) 0.2 % (0.0-4.3) 01/03/20 06:00 Baso % (Auto) 0.2 % (0.0-1.8) 01/03/20 06:00 Lymph # (Auto) 0.4 K/mm3 (1.2-5.4) L 01/03/20 06:00 Nobles # (Auto) 2.8 K/mm3 (0.0-0.8) H 01/03/20 06:00 Eos # (Auto) 0.0 K/mm3 (0.0-0.4) 01/03/20 06:00 Baso # (Auto) 0.0 K/mm3 (0.0-0.1) 01/03/20 06:00 Add Manual Diff Complete 01/02/20 09:04 Total Counted 100 01/02/20 09:04 Seg Neutrophils % 66.9 % (40.0-70.0) 01/03/20 06:00 Seg Neuts % (Manual) 94.0 % (40.0-70.0) H 01/02/20 09:04 Band Neutrophils % 0 % 01/02/20 09:04 Lymphocytes % (Manual) 2.0 % (13.4-35.0) L 01/02/20 09:04 Reactive Lymphs % (Man) 0 % 01/02/20 09:04 Monocytes % (Manual) 4.0 % (0.0-7.3) 01/02/20 09:04 Eosinophils % (Manual) 0 % (0.0-4.3) 01/02/20 09:04 Basophils % (Manual) 0 % (0.0-1.8) 01/02/20 09:04 Metamyelocytes % 0 % 01/02/20 09:04 Myelocytes % 0 % 01/02/20 09:04 Promyelocytes % 0 % 01/02/20 09:04 Blast Cells % 0 % 01/02/20 09:04 Nucleated RBC % Not Reportable 01/02/20 09:04 Seg Neutrophils # 6.5 K/mm3 (1.8-7.7) 01/03/20 06:00 Seg Neutrophils # Man 10.9 K/mm3 (1.8-7.7) H 01/02/20 09:04 Band Neutrophils # 0.0 K/mm3 01/02/20 09:04 Lymphocytes # (Manual) 0.2 K/mm3 (1.2-5.4) L 01/02/20 09:04 Abs React Lymphs (Man) 0.0 K/mm3 01/02/20 09:04 Monocytes # (Manual) 0.5 K/mm3 (0.0-0.8) 01/02/20 09:04 Eosinophils # (Manual) 0.0 K/mm3 (0.0-0.4) 01/02/20 09:04 Basophils # (Manual) 0.0 K/mm3 (0.0-0.1) 01/02/20 09:04 Metamyelocytes # 0.0 K/mm3 01/02/20 09:04 Myelocytes # 0.0 K/mm3 01/02/20 09:04 Promyelocytes # 0.0 K/mm3 01/02/20 09:04 Blast Cells # 0.0 K/mm3 01/02/20 09:04 WBC Morphology Not Reportable 01/02/20 09:04 Hypersegmented Neuts Not Reportable 01/02/20 09:04 Hyposegmented Neuts Not Reportable 01/02/20 09:04 Hypogranular Neuts Not Reportable 01/02/20 09:04 Smudge Cells Not Reportable 01/02/20 09:04 Toxic Granulation Not Reportable 01/02/20 09:04 Toxic Vacuolation Not Reportable 01/02/20 09:04 Dohle Bodies Not Reportable 01/02/20 09:04 Pelger-Huet Anomaly Not Reportable 01/02/20 09:04 Anuradha Rods Not Reportable 01/02/20 09:04 Platelet Estimate Consistent w auto 01/02/20 09:04 Clumped Platelets Not Reportable 01/02/20 09:04 Plt Clumps, EDTA Not Reportable 01/02/20 09:04 Large Platelets Not Reportable 01/02/20 09:04 Giant Platelets Not Reportable 01/02/20 09:04 Platelet Satelliting Not Reportable 01/02/20 09:04 Plt Morphology Comment Not Reportable 01/02/20 09:04 RBC Morphology Not Reportable 01/02/20 09:04 Dimorphic RBCs Not Reportable 01/02/20 09:04 Polychromasia Not Reportable 01/02/20 09:04 Hypochromasia Not Reportable 01/02/20 09:04 Poikilocytosis 1+ 01/02/20 09:04 Anisocytosis 1+ 01/02/20 09:04 Microcytosis Not Reportable 01/02/20 09:04 Macrocytosis Not Reportable 01/02/20 09:04 Spherocytes Not Reportable 01/02/20 09:04 Pappenheimer Bodies Not Reportable 01/02/20 09:04 Sickle Cells Not Reportable 01/02/20 09:04 Target Cells Few 01/02/20 09:04 Tear Drop Cells Not Reportable 01/02/20 09:04 Ovalocytes Few 01/02/20 09:04 Helmet Cells Not Reportable 01/02/20 09:04 Aleman-Volta Bodies Not Reportable 01/02/20 09:04 Silas Rings Not Reportable 01/02/20 09:04 Kaylie Cells Few 01/02/20 09:04 Bite Cells Not Reportable 01/02/20 09:04 Crenated Cell Not Reportable 01/02/20 09:04 Elliptocytes Few 01/02/20 09:04 Acanthocytes (Spur) Not Reportable 01/02/20 09:04 Rouleaux Not Reportable 01/02/20 09:04 Hemoglobin C Crystals Not Reportable 01/02/20 09:04 Schistocytes Not Reportable 01/02/20 09:04 Malaria parasites Not Reportable 01/02/20 09:04 Christ Bodies Not Reportable 01/02/20 09:04 Hem Pathologist Commnt No 01/02/20 09:04 PT 27.6 Sec. (12.2-14.9) H 12/30/19 22:30 INR 2.53 (0.87-1.13) H 12/30/19 22:30 APTT 42.2 Sec. (24.2-36.6) H 12/30/19 22:30 ABG pH 7.456 pH Units (7.350-7.450) H 01/01/20 05:15 POC ABG pCO2 34.7 mmHg (32.0-48.0) 12/31/19 04:03 ABG pCO2 34.1 mm Hg 01/01/20 05:15 POC ABG pO2 95.1 mmHg (83-108) 12/31/19 04:03 ABG pO2 85.3 mm Hg (80.0-90.0) 01/01/20 05:15 POC ABG HCO3 20.2 12/31/19 04:03 ABG HCO3 23.5 mmol/L (20.0-26.0) 01/01/20 05:15 ABG O2 Saturation 97.1 % (95.0-99.0) 01/01/20 05:15 ABG O2 Content 9.4 (0.0-44) 01/01/20 05:15 POC ABG Base Excess -4.2 12/31/19 04:03 ABG Base Excess -0.3 mmol/L (-2.0-3.0) 01/01/20 05:15 ABG Hemoglobin 6.9 gm/dl (14.0-18.0) L 01/01/20 05:15 ABG Carboxyhemoglobin 1.4 % (0.0-5.0) 01/01/20 05:15 ABG Methemoglobin 0.7 % (0.0-1.5) 01/01/20 05:15 Oxyhemoglobin 95.0 % (95.0-99.0) 01/01/20 05:15 FiO2 35 % 01/01/20 05:15 Sodium 137 mmol/L (137-145) 01/03/20 04:00 Potassium 3.7 mmol/L (3.6-5.0) 01/03/20 04:00 Chloride 99.8 mmol/L (98-107) 01/03/20 04:00 Carbon Dioxide 28 mmol/L (22-30) 01/03/20 04:00 Anion Gap 13 mmol/L 01/03/20 04:00 BUN 20 mg/dL (9-20) 01/03/20 04:00 Creatinine 0.6 mg/dL (0.8-1.3) L 01/03/20 04:00 Estimated GFR > 60 ml/min 01/03/20 04:00 BUN/Creatinine Ratio 33 % 01/03/20 04:00 Glucose 119 mg/dL (75-100) H 01/03/20 04:00 POC Glucose 128 (70-105) H 01/03/20 07:02 Lactic Acid 1.30 mmol/L (0.7-2.0) 12/31/19 04:33 Calcium 7.7 mg/dL (8.4-10.2) L 01/03/20 04:00 Phosphorus 3.10 mg/dL (2.5-4.5) D 01/03/20 04:00 Magnesium 1.70 mg/dL (1.7-2.3) 01/03/20 04:00 Total Bilirubin 1.00 mg/dL (0.1-1.2) 12/29/19 22:40 AST 18 units/L (5-40) 12/29/19 22:40 ALT 6 units/L (7-56) L 12/29/19 22:40 Alkaline Phosphatase 33 units/L (35-129) L 12/29/19 22:40 Total Protein 2.2 g/dL (6.3-8.2) L D 12/29/19 22:40 Albumin 1.6 g/dL (3.9-5) L 12/29/19 22:40 Albumin/Globulin Ratio 2.7 % 12/29/19 22:40 Triglycerides 243 mg/dL (2-149) H 01/03/20 04:00 Lipase 9 units/L (13-60) L 12/29/19 14:29 Urine Color Yellow (Yellow) 12/27/19 Unknown Urine Turbidity Clear (Clear) 12/27/19 Unknown Urine pH 5.0 (5.0-7.0) 12/27/19 Unknown Ur Specific Arnot > 1.059 (1.003-1.030) H 12/27/19 Unknown Urine Protein 30 mg/dl mg/dL (Negative) 12/27/19 Unknown Urine Glucose (UA) Neg mg/dL (Negative) 12/27/19 Unknown Urine Ketones 20 mg/dL (Negative) 12/27/19 Unknown Urine Blood Mod (Negative) 12/27/19 Unknown Urine Nitrite Neg (Negative) 12/27/19 Unknown Urine Bilirubin Neg (Negative) 12/27/19 Unknown Urine Urobilinogen < 2.0 mg/dL (<2.0) 12/27/19 Unknown Ur Leukocyte Esterase Neg (Negative) 12/27/19 Unknown Urine WBC (Auto) 2.0 /HPF (0.0-6.0) 12/27/19 Unknown Urine RBC (Auto) 28.0 /HPF (0.0-6.0) 12/27/19 Unknown U Epithel Cells (Auto) < 1.0 /HPF (0-13.0) 12/27/19 Unknown Urine Mucus 3+ /HPF 12/27/19 Unknown Blood Type B POSITIVE 12/29/19 19:52 Antibody Screen Negative 12/29/19 19:52 Crossmatch See Detail 12/29/19 19:52 Azul/IV: Voiding Method Condom Catheter IV Catheter Type [Left Forearm INT / Saline Lock ] IV Catheter Type [Left Wrist] Peripheral IV IV Catheter Type [Right Peripheral IV Forearm] IV Catheter Type [Right Upper PICC Line arm] IV Catheter Type [Right INT / Saline Lock Antecubital] Active Medications - Current Medications Current Medications: Generic Name Dose Route Start Last Admin Trade Name Freq PRN Reason Stop Dose Admin Acetaminophen 650 mg 12/27/19 23:14 Tylenol PO Q4H PRN Pain MILD(1-3)/Fever >100.5/LAZCANO Famotidine 20 mg 12/27/19 23:45 01/02/20 21:08 Pepcid IV 20 mg BID SUSAN Administration Haloperidol Lactate 5 mg 12/31/19 09:19 Haldol IV Q6H PRN Agitation Hydrophilic Ointment 1 applic 12/29/19 22:33 Vaseline Lip Therapy TP Q2HR PRN Dry Lips Levofloxacin/Dextrose 500 mg in 100 mls @ 100 mls/hr 01/02/20 10:00 01/02/20 11:51 Levaquin 500mg/100ml IV 01/07/20 09:59 100 mls/hr Q24HR SUSAN Administration Protocol Metronidazole 500 mg in 100 mls @ 100 mls/hr 01/02/20 14:00 01/03/20 05:21 Flagyl 500 Mg/100 Ml IV 01/07/20 13:59 100 mls/hr Q8HR SUSAN Administration Protocol Amino Acids/Electrolytes/Dextrose 2,400 mls @ 100 mls/hr 01/02/20 20:00 01/02/20 20:58 Tpn Adult IV 01/03/20 19:59 100 mls/hr DAILY@[email or web address] SUSAN Administration Protocol Lorazepam 1 mg 12/30/19 07:33 01/01/20 05:01 Ativan IV 1 mg Q4H PRN Administration Agitation Morphine Sulfate 2 mg 12/27/19 23:14 01/03/20 03:46 Morphine IV 2 mg Q4H PRN Administration Pain, Moderate (4-6) Multi-Ingred Cream/Lotion/Oil/Oint 1 applic 12/29/19 22:33 Artificial Tears Ophth Oint OU Q4HR PRN Dry Eye(s) Nicotine 21 mg 12/31/19 10:00 01/02/20 11:52 Habitrol TD 21 mg QDAY SUSAN Administration Ondansetron HCl 4 mg 12/27/19 23:14 01/02/20 21:44 Zofran IV 4 mg Q3H PRN Administration Nausea And Vomiting Sodium Chloride 10 ml 12/28/19 10:00 01/02/20 21:08 Sodium Chloride Flush Syringe 10 Ml IV 10 ml BID SUSAN Administration Sodium Chloride 10 ml 12/27/19 23:14 12/29/19 10:40 Sodium Chloride Flush Syringe 10 Ml IV 10 ml PRN PRN Administration LINE FLUSH Nutrition/Malnutrition Assess - Dietary Evaluation Nutrition/Malnutrition Findings: Nutrition Notes Start: 12/30/19 08:57 Freq: Status: Active Protocol: Document 01/02/20 11:52 ANY (Rec: 01/02/20 12:05 ANY [id number]) Co-Sign 01/02/20 11:52 LM Nutrition Notes Initial or Follow up Reassessment Other Pertinent Diagnosis SBO s/p hemicolectomy, R nephrectomy Current Diet CPN at 100ml/hr Labs/Tests BUN 11 Cr 0.6 Na 138 K 4.2 Adj Ca 10.2 Phos 2.5 Mg 1.9 Platelet 25 Pertinent Medications Reviewed Height 5 ft 8 in Weight 74.843 kg Whitman Body Weight (kg) 70.00 BMI 25.0 Weight Status Overweight Subjective/Other Information TPN day 2. CPN running through PICC line. Witnessed NS at 100ml/hr. Called RN to d/c. Noted higher output from surgical wounds, but trending downward. Percent of energy/protein needs met: 41%/81% Burn Absent Trauma Absent Current % PO Negligible Minimum of two criteria No physical signs of malnutrition #1 Nutrition Diagnosis Inadequate oral intake As Evidenced by Signs and Symptoms pt unable to meet needs PO. Diagnosis Progress(for reassessment Continues documentation) Is patient on ventilator? No Is Patient Ambulatory and/or Out of Bed No REE-([facility]-confined to bed) 1968.360 Calculation Used for Recommendations [facility] Additional Notes Protein needs 1.2-2g/k- 150g Fluid needs 1ml/kcal Nutrition Intervention Change Diet Order: Continue CPN Nutrition Support: Continue CPN at 100ml/hr AA 4.2%, 100gm Dextrose 8%, 200gm Na 150 mEq K 60 mmol Mg 8 mEq MVI, MTE, Thiamin Osmolality 1015 Kcal 1,080 Protein (gm) 100 Carbohydrates (gm) 200 Fat (gm) 0 Fluid (mL) 2,400 Fiber (gm) 0 Goal #1 PN to meet nutrient needs as best possible Anticipated Discharge Needs: unable to determine at this time Follow-Up By: 01/03/20 Additional Comments Labs: BMP, Mg, Phos, TG
[2020-01-03] MEDS: ACETAMINOPHEN 325 MG TAB PO PRN (08:10)
[2020-01-03] MEDS: NICOTINE 21 MG/24 HR PATCH TD SCH (10:46)
[2020-01-03] MEDS: FAMOTIDINE 20 MG/2 ML INJ IV SCH ×2 (10:48→21:09)
[2020-01-03] MEDS ORDERED: SODIUM CHLORIDE 0.9% 1000 ML 1,000 ML IV ONE (14:00)
--- NOTE | 2020-01-03 16:13 | Progress Note ---
Subjective Date of service: 01/03/20 Principal diagnosis: Abdominal pain small bowel obstruction Interval history: VSS AF, on TPN, platelet count rising today, continue present management. Objective - Constitutional Vitals: Vital Signs - 12hr 01/03/20 01/03/20 01/03/20 05:31 08:00 10:52 Temperature 99.0 F 100.6 F H 98.7 F Pulse Rate 107 H 103 H Respiratory 17 22 Rate Blood Pressure 94/64 Blood Pressure 93/65 [Left] O2 Sat by Pulse 96 98 Oximetry 01/03/20 01/03/20 11:18 12:52 Temperature Pulse Rate 95 H Respiratory Rate Blood Pressure Blood Pressure 92/63 [Left] O2 Sat by Pulse 98 Oximetry - Labs CBC & Chem 7: 01/03/20 06:00 01/03/20 04:00 Labs: Abnormal lab results 12/29/19 01/02/20 01/03/20 Range/Units 19:52 22:37 04:00 RBC (3.65-5.03) M/mm3 Hgb (11.8-15.2) gm/dl Hct (35.5-45.6) % MCHC (32-34) % Plt Count (140-440) K/mm3 Lymph % (Auto) (13.4-35.0) % Rhea % (Auto) (0.0-7.3) % Lymph # (Auto) (1.2-5.4) K/mm3 Rhea # (Auto) (0.0-0.8) K/mm3 Creatinine 0.6 L (0.8-1.3) mg/dL Glucose 119 H (75-100) mg/dL POC Glucose 107 H (70-105) Calcium 7.7 L (8.4-10.2) mg/dL Triglycerides 243 H (2-149) mg/dL Crossmatch See Detail 01/03/20 01/03/20 Range/Units 06:00 07:02 RBC 3.22 L (3.65-5.03) M/mm3 Hgb 9.5 L (11.8-15.2) gm/dl Hct 27.5 L (35.5-45.6) % MCHC 35 H (32-34) % Plt Count 36 L (140-440) K/mm3 Lymph % (Auto) 4.4 L (13.4-35.0) % Rhea % (Auto) 28.3 H (0.0-7.3) % Lymph # (Auto) 0.4 L (1.2-5.4) K/mm3 Rhea # (Auto) 2.8 H (0.0-0.8) K/mm3 Creatinine (0.8-1.3) mg/dL Glucose (75-100) mg/dL POC Glucose 128 H (70-105) Calcium (8.4-10.2) mg/dL Triglycerides (2-149) mg/dL Crossmatch Medications & Allergies - Medications Allergies/Adverse Reactions: Allergies No Known Allergies Allergy (Unverified 12/27/19 11:57) Active Medications: Generic Name Dose Route Start Last Admin Trade Name Freq PRN Reason Stop Dose Admin Acetaminophen 650 mg 12/27/19 23:14 01/03/20 08:10 Tylenol PO 650 mg Q4H PRN Administration Pain MILD(1-3)/Fever >100.5/LAZCANO Famotidine 20 mg 12/27/19 23:45 01/03/20 10:48 Pepcid IV 20 mg BID SUSAN Administration Haloperidol Lactate 5 mg 12/31/19 09:19 Haldol IV Q6H PRN Agitation Hydrophilic Ointment 1 applic 12/29/19 22:33 Vaseline Lip Therapy TP Q2HR PRN Dry Lips Levofloxacin/Dextrose 500 mg in 100 mls @ 100 mls/hr 01/02/20 10:00 01/03/20 10:48 Levaquin 500mg/100ml IV 01/07/20 09:59 100 mls/hr Q24HR SUSAN Administration Protocol Metronidazole 500 mg in 100 mls @ 100 mls/hr 01/02/20 14:00 01/03/20 13:03 Flagyl 500 Mg/100 Ml IV 01/07/20 13:59 100 mls/hr Q8HR SUSAN Administration Protocol Amino Acids/Electrolytes/Dextrose 2,400 mls @ 100 mls/hr 01/02/20 20:00 01/02/20 20:58 Tpn Adult IV 01/03/20 19:59 100 mls/hr DAILY@[email or web address] SUSAN Administration Protocol Amino Acids/Electrolytes/Dextrose 2,400 mls @ 100 mls/hr 01/03/20 20:00 Tpn Adult IV 01/04/20 19:59 DAILY@1999 [facility] Protocol Morphine Sulfate 2 mg 12/27/19 23:14 01/03/20 12:55 Morphine IV 2 mg Q4H PRN Administration Pain, Moderate (4-6) Multi-Ingred Cream/Lotion/Oil/Oint 1 applic 12/29/19 22:33 Artificial Tears Ophth Oint OU Q4HR PRN Dry Eye(s) Nicotine 21 mg 12/31/19 10:00 01/03/20 10:46 Habitrol TD 21 mg QDAY SUSAN Administration Ondansetron HCl 4 mg 12/27/19 23:14 01/02/20 21:44 Zofran IV 4 mg Q3H PRN Administration Nausea And Vomiting Sodium Chloride 10 ml 12/28/19 10:00 01/02/20 21:08 Sodium Chloride Flush Syringe 10 Ml IV 10 ml BID SUSAN Administration Sodium Chloride 10 ml 12/27/19 23:14 12/29/19 10:40 Sodium Chloride Flush Syringe 10 Ml IV 10 ml PRN PRN Administration LINE FLUSH
[2020-01-03] MEDS ORDERED: TOTAL PARENTERAL NUTRITION 2,400 ML IV SCH (20:00)
[2020-01-04] MEDS: MORPHINE 2 MG/1 ML INJ IV PRN ×5 (01:55→18:22)
[2020-01-04] MEDS: metroNIDAZOLE/NS 500 MG/100 ML 500 MG/100 ML BAG IV SCH ×3 (05:23→22:31)
[2020-01-04 06:26] LABS: Hematocrit 27.6 % (35.5-45.6); Hemoglobin 9.6 gm/dl (11.8-15.2); Mean Corpuscular HGB Conc 35 % (32-34); Mean Corpuscular Volume 85 fl (84-94); Red Blood Count 3.25 M/mm3 (3.65-5.03); Red Cell Distribution Width 15.1 % (13.2-15.2)
[2020-01-04 06:27] LABS: Platelet Count 61 K/mm3 (140-440)
[2020-01-04 07:27] LABS: Alanine Aminotransferase 52 units/L (7-56); Albumin 1.8 g/dL (3.9-5); Blood Urea Nitrogen 20 mg/dL (9-20); Calcium 7.8 mg/dL (8.4-10.2); Hemolysis Index 3
[2020-01-04 07:38] LABS: BUN/Creatinine Ratio 40
[2020-01-04] MEDS: FAMOTIDINE 20 MG/2 ML INJ IV SCH ×2 (10:24→22:32)
[2020-01-04] MEDS: NICOTINE 21 MG/24 HR PATCH TD SCH (10:25)
[2020-01-04] MEDS: ACETAMINOPHEN 325 MG TAB PO PRN (10:25)
--- NOTE | 2020-01-04 11:08 | Progress Note ---
Assessment and Plan Assessment and plan: Patient is a 39-year-old F [place] male with a past medical history of right- sided nephrectomy status post Wilms tumor and appendectomy both of which occurred in the late 80s who is presenting with abdominal pain. Patient states for the past 2 days he has had some abdominal distention in the right lower quadrant and crampy 10 out of 10 pain. He has had multiple episodes of nausea and vomiting. Denies fever chills cough cold or congestion. On December 30, [address] showed patient to have free air in colon. Surgical intervention was required. Patient had surgery had partial hemicolectomy during exploratory laparotomy was subsequently intubated and transferred to the intensive care unit. On December 31, 2019 patient returned to the OR for an additional surgery. After initial extubation. Patient was not follow commands agitated unable to really protect airways and therefore was reintubated. 01/02: s/p 2 UNITS OF FFP, Mild improvement in PLT, FOLLOW HIT. Monitor AM labs, Consult Dr Kendall if plt continues to drop. Low grade fever noted, will monitor, Room changed to better monitor risk of fall as patient still with some lethargy. ABG checked yesterday, did not reflect elevated CO2 01/03: Patient clinically stable showing some improvement. Continues on TPN. Continue to monitor for bowel movement. Still very lethargic. Platelets improving up to 61. Continue to await HIT results. Continue aggressive physical therapy. (1) Small bowel obstruction Current Visit: Yes Status: Acute Plan to address problem: Status post exploratory lap x3. C surgery note. Some ischemic bowel. Hemicolectomy. Fistula washed out. (2) Dehydration Current Visit: Yes Status: Resolved Plan to address problem: Patient well-hydrated. Fluid volumes stable ins and outs stable. (3) Acute Metabolic Encephalopathy with subsequent acute respiratory failure Patient extubated successfully downgraded to MedSur. Advised nursing staff to continue monitoring mental status. (4) Metabolic acidosis Current Visit: Yes Status: Acute Plan to address problem: Has improved from 4.6-3. Post surgery. (5) ANEMIA -precipitous drop in hemoglobin stable (6) Thrombocytopenia Monitor closely. IF persistent decline will consult Enoch ARREOLA Telehematologist. In the mean time will request HIT and continue to hold off chemical prophylaxis. Will obtain PT/OT considering recent fall. (7) DVT prophylaxis Current Visit: Yes Status: Acute Plan to address problem: Anticoagulation being held secondary to surgery and risk of bleeding. History Interval history: Patient seen and examined, awakens on name, remains very lethargic but with some improvement Hospitalist Physical - Physical exam Narrative exam: VITAL SIGNS: Reviewed. GENERAL: The patient appears normally developed, otherwise lethargic vital signs as documented. HEAD: No signs of head trauma. EYES: Pupils are equal. Extraocular motions intact. EARS: Hearing grossly intact. MOUTH: Oropharynx is normal. NECK: No adenopathy, no JVD. CHEST: Chest with diminished breath sounds bilaterally. No wheezes, rales, or rhonchi. CARDIAC: Regular rate and rhythm. S1 and S2, without murmurs, gallops, or rubs. VASCULAR: No Edema. Peripheral pulses normal and equal in all extremities. ABDOMEN: Soft, nondistended mildly tender hypoactive bowel sounds. Abdominal dressing intact and did not take down. Review of surgeons notes shows that both ostomies are viable. No significant output noted.. MUSCULOSKELETAL: Good range of motion of all major joints. Extremities without clubbing, cyanosis or edema. NEUROLOGIC EXAM: Alert and oriented x 3 but otherwise very lethargic requiring two people assist this morning no focal sensory or strength deficits. Speech normal. Follows commands. PSYCHIATRIC: Mood normal. SKIN: detail exam as documented in skin assessment - Constitutional Vitals: Temp Pulse Resp BP Pulse Ox 98.7 F 84 22 101/62 97 01/04/20 10:17 01/04/20 10:17 01/04/20 10:17 01/04/20 10:17 01/04/20 10:17 General appearance: Present: other (Intubated no acute distress.) Results - Labs CBC & Chem 7: 01/04/20 06:10 01/04/20 06:10 Labs: Laboratory Last Values WBC 11.8 K/mm3 (4.5-11.0) H 01/04/20 06:10 RBC 3.25 M/mm3 (3.65-5.03) L 01/04/20 06:10 Hgb 9.6 gm/dl (11.8-15.2) L 01/04/20 06:10 Hct 27.6 % (35.5-45.6) L 01/04/20 06:10 MCV 85 fl (84-94) 01/04/20 06:10 MCH 29 pg (28-32) 01/04/20 06:10 MCHC 35 % (32-34) H 01/04/20 06:10 RDW 15.1 % (13.2-15.2) 01/04/20 06:10 Plt Count 61 K/mm3 (140-440) L 01/04/20 06:10 Lymph % (Auto) 4.4 % (13.4-35.0) L 01/03/20 06:00 [place] % (Auto) 28.3 % (0.0-7.3) H 01/03/20 06:00 Eos % (Auto) 0.2 % (0.0-4.3) 01/03/20 06:00 Baso % (Auto) 0.2 % (0.0-1.8) 01/03/20 06:00 Lymph # (Auto) 0.4 K/mm3 (1.2-5.4) L 01/03/20 06:00 [place] # (Auto) 2.8 K/mm3 (0.0-0.8) H 01/03/20 06:00 Eos # (Auto) 0.0 K/mm3 (0.0-0.4) 01/03/20 06:00 Baso # (Auto) 0.0 K/mm3 (0.0-0.1) 01/03/20 06:00 Add Manual Diff Complete 01/02/20 09:04 Total Counted 100 01/02/20 09:04 Seg Neutrophils % 66.9 % (40.0-70.0) 01/03/20 06:00 Seg Neuts % (Manual) 94.0 % (40.0-70.0) H 01/02/20 09:04 Band Neutrophils % 0 % 01/02/20 09:04 Lymphocytes % (Manual) 2.0 % (13.4-35.0) L 01/02/20 09:04 Reactive Lymphs % (Man) 0 % 01/02/20 09:04 Monocytes % (Manual) 4.0 % (0.0-7.3) 01/02/20 09:04 Eosinophils % (Manual) 0 % (0.0-4.3) 01/02/20 09:04 Basophils % (Manual) 0 % (0.0-1.8) 01/02/20 09:04 Metamyelocytes % 0 % 01/02/20 09:04 Myelocytes % 0 % 01/02/20 09:04 Promyelocytes % 0 % 01/02/20 09:04 Blast Cells % 0 % 01/02/20 09:04 Nucleated RBC % Not Reportable 01/02/20 09:04 Seg Neutrophils # 6.5 K/mm3 (1.8-7.7) 01/03/20 06:00 Seg Neutrophils # Man 10.9 K/mm3 (1.8-7.7) H 01/02/20 09:04 Band Neutrophils # 0.0 K/mm3 01/02/20 09:04 Lymphocytes # (Manual) 0.2 K/mm3 (1.2-5.4) L 01/02/20 09:04 Abs React Lymphs (Man) 0.0 K/mm3 01/02/20 09:04 Monocytes # (Manual) 0.5 K/mm3 (0.0-0.8) 01/02/20 09:04 Eosinophils # (Manual) 0.0 K/mm3 (0.0-0.4) 01/02/20 09:04 Basophils # (Manual) 0.0 K/mm3 (0.0-0.1) 01/02/20 09:04 Metamyelocytes # 0.0 K/mm3 01/02/20 09:04 Myelocytes # 0.0 K/mm3 01/02/20 09:04 Promyelocytes # 0.0 K/mm3 01/02/20 09:04 Blast Cells # 0.0 K/mm3 01/02/20 09:04 WBC Morphology Not Reportable 01/02/20 09:04 Hypersegmented Neuts Not Reportable 01/02/20 09:04 Hyposegmented Neuts Not Reportable 01/02/20 09:04 Hypogranular Neuts Not Reportable 01/02/20 09:04 Smudge Cells Not Reportable 01/02/20 09:04 Toxic Granulation Not Reportable 01/02/20 09:04 Toxic Vacuolation Not Reportable 01/02/20 09:04 Dohle Bodies Not Reportable 01/02/20 09:04 Pelger-Huet Anomaly Not Reportable 01/02/20 09:04 Anuradha Rods Not Reportable 01/02/20 09:04 Platelet Estimate Consistent w auto 01/02/20 09:04 Clumped Platelets Not Reportable 01/02/20 09:04 Plt Clumps, EDTA Not Reportable 01/02/20 09:04 Large Platelets Not Reportable 01/02/20 09:04 Giant Platelets Not Reportable 01/02/20 09:04 Platelet Satelliting Not Reportable 01/02/20 09:04 Plt Morphology Comment Not Reportable 01/02/20 09:04 RBC Morphology Not Reportable 01/02/20 09:04 Dimorphic RBCs Not Reportable 01/02/20 09:04 Polychromasia Not Reportable 01/02/20 09:04 Hypochromasia Not Reportable 01/02/20 09:04 Poikilocytosis 1+ 01/02/20 09:04 Anisocytosis 1+ 01/02/20 09:04 Microcytosis Not Reportable 01/02/20 09:04 Macrocytosis Not Reportable 01/02/20 09:04 Spherocytes Not Reportable 01/02/20 09:04 Pappenheimer Bodies Not Reportable 01/02/20 09:04 Sickle Cells Not Reportable 01/02/20 09:04 Target Cells Few 01/02/20 09:04 Tear Drop Cells Not Reportable 01/02/20 09:04 Ovalocytes Few 01/02/20 09:04 Helmet Cells Not Reportable 01/02/20 09:04 [place] Bodies Not Reportable 01/02/20 09:04 [place] Rings Not Reportable 01/02/20 09:04 [place] Cells Few 01/02/20 09:04 Bite Cells Not Reportable 01/02/20 09:04 Crenated Cell Not Reportable 01/02/20 09:04 Elliptocytes Few 01/02/20 09:04 Acanthocytes (Spur) Not Reportable 01/02/20 09:04 Rouleaux Not Reportable 01/02/20 09:04 Hemoglobin C Crystals Not Reportable 01/02/20 09:04 Schistocytes Not Reportable 01/02/20 09:04 Malaria parasites Not Reportable 01/02/20 09:04 Christ Bodies Not Reportable 01/02/20 09:04 Hem Pathologist Commnt No 01/02/20 09:04 PT 27.6 Sec. (12.2-14.9) H 12/30/19 22:30 INR 2.53 (0.87-1.13) H 12/30/19 22:30 APTT 42.2 Sec. (24.2-36.6) H 12/30/19 22:30 ABG pH 7.456 pH Units (7.350-7.450) H 01/01/20 05:15 POC ABG pCO2 34.7 mmHg (32.0-48.0) 12/31/19 04:03 ABG pCO2 34.1 mm Hg 01/01/20 05:15 POC ABG pO2 95.1 mmHg (83-108) 12/31/19 04:03 ABG pO2 85.3 mm Hg (80.0-90.0) 01/01/20 05:15 POC ABG HCO3 20.2 12/31/19 04:03 ABG HCO3 23.5 mmol/L (20.0-26.0) 01/01/20 05:15 ABG O2 Saturation 97.1 % (95.0-99.0) 01/01/20 05:15 ABG O2 Content 9.4 (0.0-44) 01/01/20 05:15 POC ABG Base Excess -4.2 12/31/19 04:03 ABG Base Excess -0.3 mmol/L (-2.0-3.0) 01/01/20 05:15 ABG Hemoglobin 6.9 gm/dl (14.0-18.0) L 01/01/20 05:15 ABG Carboxyhemoglobin 1.4 % (0.0-5.0) 01/01/20 05:15 ABG Methemoglobin 0.7 % (0.0-1.5) 01/01/20 05:15 Oxyhemoglobin 95.0 % (95.0-99.0) 01/01/20 05:15 FiO2 35 % 01/01/20 05:15 Sodium 137 mmol/L (137-145) 01/04/20 06:10 Potassium 4.1 mmol/L (3.6-5.0) 01/04/20 06:10 Chloride 100.1 mmol/L (98-107) 01/04/20 06:10 Carbon Dioxide 32 mmol/L (22-30) H 01/04/20 06:10 Anion Gap 9 mmol/L 01/04/20 06:10 BUN 20 mg/dL (9-20) 01/04/20 06:10 Creatinine 0.5 mg/dL (0.8-1.3) L 01/04/20 06:10 Estimated GFR > 60 ml/min 01/04/20 06:10 BUN/Creatinine Ratio 40 % 01/04/20 06:10 Glucose 111 mg/dL (75-100) H 01/04/20 06:10 POC Glucose 120 (70-105) H 01/04/20 07:03 Lactic Acid 1.30 mmol/L (0.7-2.0) 12/31/19 04:33 Calcium 7.8 mg/dL (8.4-10.2) L 01/04/20 06:10 Phosphorus 2.80 mg/dL (2.5-4.5) 01/04/20 06:10 Magnesium 2.00 mg/dL (1.7-2.3) 01/04/20 06:10 Total Bilirubin 4.50 mg/dL (0.1-1.2) H 01/04/20 06:10 AST 97 units/L (5-40) H 01/04/20 06:10 ALT 52 units/L (7-56) 01/04/20 06:10 Alkaline Phosphatase 107 units/L (35-129) 01/04/20 06:10 Total Protein 4.1 g/dL (6.3-8.2) L 01/04/20 06:10 Albumin 1.8 g/dL (3.9-5) L 01/04/20 06:10 Albumin/Globulin Ratio 0.8 % 01/04/20 06:10 Triglycerides 243 mg/dL (2-149) H 01/03/20 04:00 Lipase 9 units/L (13-60) L 12/29/19 14:29 Urine Color Yellow (Yellow) 12/27/19 Unknown Urine Turbidity Clear (Clear) 12/27/19 Unknown Urine pH 5.0 (5.0-7.0) 12/27/19 Unknown Ur Specific [place] > 1.059 (1.003-1.030) H 12/27/19 Unknown Urine Protein 30 mg/dl mg/dL (Negative) 12/27/19 Unknown Urine Glucose (UA) Neg mg/dL (Negative) 12/27/19 Unknown Urine Ketones 20 mg/dL (Negative) 12/27/19 Unknown Urine Blood Mod (Negative) 12/27/19 Unknown Urine Nitrite Neg (Negative) 12/27/19 Unknown Urine Bilirubin Neg (Negative) 12/27/19 Unknown Urine Urobilinogen < 2.0 mg/dL (<2.0) 12/27/19 Unknown Ur Leukocyte Esterase Neg (Negative) 12/27/19 Unknown Urine WBC (Auto) 2.0 /HPF (0.0-6.0) 12/27/19 Unknown Urine RBC (Auto) 28.0 /HPF (0.0-6.0) 12/27/19 Unknown U Epithel Cells (Auto) < 1.0 /HPF (0-13.0) 12/27/19 Unknown Urine Mucus 3+ /HPF 12/27/19 Unknown Blood Type B POSITIVE 12/29/19 19:52 Antibody Screen Negative 12/29/19 19:52 Crossmatch See Detail 12/29/19 19:52 Microbiology: Microbiology 12/29/19 Unknown Peritoneal Fluid Anaerobic Culture - Final Azul/IV: Voiding Method Condom Catheter IV Catheter Type [Left Forearm INT / Saline Lock ] IV Catheter Type [Left Wrist] Peripheral IV IV Catheter Type [Right Peripheral IV Forearm] IV Catheter Type [Right Upper PICC Line arm] IV Catheter Type [Right INT / Saline Lock Antecubital] Active Medications - Current Medications Current Medications: Generic Name Dose Route Start Last Admin Trade Name Freq PRN Reason Stop Dose Admin Acetaminophen 650 mg 12/27/19 23:14 01/04/20 10:25 Tylenol PO 650 mg Q4H PRN Administration Pain MILD(1-3)/Fever >100.5/LAZCANO Famotidine 20 mg 12/27/19 23:45 01/04/20 10:24 Pepcid IV 20 mg BID SUSAN Administration Haloperidol Lactate 5 mg 12/31/19 09:19 Haldol IV Q6H PRN Agitation Hydrophilic Ointment 1 applic 12/29/19 22:33 Vaseline Lip Therapy TP Q2HR PRN Dry Lips Levofloxacin/Dextrose 500 mg in 100 mls @ 100 mls/hr 01/02/20 10:00 01/04/20 10:25 Levaquin 500mg/100ml IV 01/07/20 09:59 100 mls/hr Q24HR SUSAN Administration Protocol Metronidazole 500 mg in 100 mls @ 100 mls/hr 01/02/20 14:00 01/04/20 05:23 Flagyl 500 Mg/100 Ml IV 01/07/20 13:59 100 mls/hr Q8HR SUSAN Administration Protocol Amino Acids/Electrolytes/Dextrose 2,400 mls @ 100 mls/hr 01/03/20 20:00 01/03/20 21:08 Tpn Adult IV 01/04/20 19:59 100 mls/hr DAILY@1999 SUSAN Administration Protocol Amino Acids/Electrolytes/Dextrose 2,400 mls @ 100 mls/hr 01/04/20 20:00 Tpn Adult IV 01/05/20 19:59 DAILY@1999 [facility] Protocol Morphine Sulfate 2 mg 12/27/19 23:14 01/04/20 10:24 Morphine IV 2 mg Q4H PRN Administration Pain, Moderate (4-6) Multi-Ingred Cream/Lotion/Oil/Oint 1 applic 12/29/19 22:33 Artificial Tears Ophth Oint OU Q4HR PRN Dry Eye(s) Nicotine 21 mg 12/31/19 10:00 01/04/20 10:25 Habitrol TD 21 mg QDAY SUSAN Administration Ondansetron HCl 4 mg 12/27/19 23:14 01/02/20 21:44 Zofran IV 4 mg Q3H PRN Administration Nausea And Vomiting Sodium Chloride 10 ml 12/28/19 10:00 01/04/20 10:27 Sodium Chloride Flush Syringe 10 Ml IV 10 ml BID SUSAN Administration Sodium Chloride 10 ml 12/27/19 23:14 12/29/19 10:40 Sodium Chloride Flush Syringe 10 Ml IV 10 ml PRN PRN Administration LINE FLUSH Nutrition/Malnutrition Assess - Dietary Evaluation Nutrition/Malnutrition Findings: Nutrition Notes Start: 12/30/19 08:57 Freq: Status: Active Protocol: Document 01/04/20 09:58 ANY (Rec: 01/04/20 10:10 ANY [id number]) Co-Sign 01/04/20 09:58 LM Nutrition Notes Initial or Follow up Reassessment Other Pertinent Diagnosis SBO s/p hemicolectomy, R nephrectomy, anemia Current Diet CPN at 100ml/hr Labs/Tests Cr 0.5 TG 243 Bilirubin 4.5 Platelets 61 Pertinent Medications Reviewed Height 5 ft 8 in Weight 74.843 kg [place] Body Weight (kg) 70.00 BMI 25.0 Weight Status Overweight Subjective/Other Information CPN day 4. Noted MD repleting for platelets.Per MD report, pt neuro and cardiac WNL. Percent of energy/protein needs met: 64%/100% Burn Absent Trauma Absent GI Symptoms None Current % PO Negligible Minimum of two criteria No physical signs of malnutrition #1 Nutrition Diagnosis Inadequate oral intake Diagnosis Progress(for reassessment Continues documentation) Is patient on ventilator? No Is Patient Ambulatory and/or Out of Bed No REE-([facility]-confined to bed) 1968.360 Calculation Used for Recommendations [facility] Additional Notes Protein needs 1.2-2g/k- 150g Fluid needs 1ml/kcal Nutrition Intervention Change Diet Order: Continue CPN Nutrition Support: CPN at 100ml/hr: 13% dextrose MVI Osmolality: 1305 Kcal 1,420 Protein (gm) 100 Carbohydrates (gm) 300 Fat (gm) 0 Fluid (mL) 2,400 Fiber (gm) 0 Goal #1 PN to meet nutrient needs as best possible Anticipated Discharge Needs: unable to determine at this time Follow-Up By: 01/04/20 Additional Comments Labs: BMP, Mg, Phos, Cl, CO2, Cr
[2020-01-04] MEDS ORDERED: TOTAL PARENTERAL NUTRITION 2,400 ML IV SCH (20:00)
[2020-01-05] MEDS: MORPHINE 2 MG/1 ML INJ IV PRN ×2 (02:44→09:57)
[2020-01-05] MEDS: metroNIDAZOLE/NS 500 MG/100 ML 500 MG/100 ML BAG IV SCH ×3 (05:06→22:34)
[2020-01-05] MEDS ORDERED: HYDROmorphone 1 MG/1 ML INJ IV ONE (05:23)
--- NOTE | 2020-01-05 05:57 | Progress Note ---
Assessment and Plan Continue NPO to allow ischemic bowel to resolve, hold chemical DVT prophylaxis till platelets greater than 100K, Continue TPN. serial labs, patient will need port for TPN at home, will not advance diet until bowel ischemia resolves which can probably be done Tuesday, that is adv to clears. Continue antibiotics, if fever increases repeat CT abd pelvis, not really indicated at this point. Need to wean sedation ( haldol etc), needs PT to help mobilize. Subjective Date of service: 01/05/20 Narrative: POD 7/09/06 Low grade temp, VSS, platelets improving, on TPN, NPO, ice chips, Levaquin/ Flagyll, abd incision seen yesterday, apple removed, jejunostomy and mucous fistula appear viable, more oriented, path reveals and ischemic bowel, no malignancy. Objective Vital Signs - 12hr 01/04/20 01/04/20 01/04/20 18:52 19:27 22:00 Temperature 99.5 F Pulse Rate 81 Respiratory 17 18 Rate Respiratory 16 Rate [Abdomen] Blood Pressure 101/67 O2 Sat by Pulse 99 Oximetry 01/04/20 01/04/20 01/05/20 23:00 23:40 04:32 Temperature 99.6 F 100.1 F H Pulse Rate 91 H 84 Respiratory 17 18 18 Rate Respiratory Rate [Abdomen] Blood Pressure 102/63 107/68 O2 Sat by Pulse 96 100 Oximetry - Labs 01/04/20 06:10 01/04/20 06:10 Diabetes panel 01/04/20 Range/Units 06:10 Sodium 137 (137-145) mmol/L Potassium 4.1 (3.6-5.0) mmol/L Chloride 100.1 (98-107) mmol/L Carbon Dioxide 32 H (22-30) mmol/L BUN 20 (9-20) mg/dL Creatinine 0.5 L (0.8-1.3) mg/dL Glucose 111 H (75-100) mg/dL Calcium 7.8 L (8.4-10.2) mg/dL AST 97 H (5-40) units/L ALT 52 (7-56) units/L Alkaline Phosphatase 107 (35-129) units/L Total Protein 4.1 L (6.3-8.2) g/dL Albumin 1.8 L (3.9-5) g/dL Calcium panel 01/04/20 Range/Units 06:10 Calcium 7.8 L (8.4-10.2) mg/dL Phosphorus 2.80 (2.5-4.5) mg/dL Albumin 1.8 L (3.9-5) g/dL Pituitary panel 01/04/20 Range/Units 06:10 Sodium 137 (137-145) mmol/L Potassium 4.1 (3.6-5.0) mmol/L Chloride 100.1 (98-107) mmol/L Carbon Dioxide 32 H (22-30) mmol/L BUN 20 (9-20) mg/dL Creatinine 0.5 L (0.8-1.3) mg/dL Glucose 111 H (75-100) mg/dL Calcium 7.8 L (8.4-10.2) mg/dL Adrenal panel 01/04/20 Range/Units 06:10 Sodium 137 (137-145) mmol/L Potassium 4.1 (3.6-5.0) mmol/L Chloride 100.1 (98-107) mmol/L Carbon Dioxide 32 H (22-30) mmol/L BUN 20 (9-20) mg/dL Creatinine 0.5 L (0.8-1.3) mg/dL Glucose 111 H (75-100) mg/dL Calcium 7.8 L (8.4-10.2) mg/dL Total Bilirubin 4.50 H (0.1-1.2) mg/dL AST 97 H (5-40) units/L ALT 52 (7-56) units/L Alkaline Phosphatase 107 (35-129) units/L Total Protein 4.1 L (6.3-8.2) g/dL Albumin 1.8 L (3.9-5) g/dL
[2020-01-05 07:07] LABS: Blood Urea Nitrogen 21 mg/dL (9-20); Calcium 7.6 mg/dL (8.4-10.2); Hemolysis Index 3
[2020-01-05 07:08] LABS: BUN/Creatinine Ratio 35
--- NOTE | 2020-01-05 09:01 | Progress Note ---
Assessment and Plan Assessment and plan: Patient is a 39-year-old F Nigerian male with a past medical history of right- sided nephrectomy status post Wilms tumor and appendectomy both of which occurred in the late 80s who is presenting with abdominal pain. Patient states for the past 2 days he has had some abdominal distention in the right lower quadrant and crampy 10 out of 10 pain. He has had multiple episodes of nausea and vomiting. Denies fever chills cough cold or congestion. On December 30, [address] showed patient to have free air in colon. Surgical intervention was required. Patient had surgery had partial hemicolectomy during exploratory laparotomy was subsequently intubated and transferred to the intensive care unit. On December 31, 2019 patient returned to the OR for an additional surgery. After initial extubation. Patient was not follow commands agitated unable to really protect airways and therefore was reintubated. 01/02: s/p 2 UNITS OF FFP, Mild improvement in PLT, FOLLOW HIT. Monitor AM labs, Consult Dr Kendall if plt continues to drop. Low grade fever noted, will monitor, Room changed to better monitor risk of fall as patient still with some lethargy. ABG checked yesterday, did not reflect elevated CO2 01/03: Patient clinically stable showing some improvement. Continues on TPN. Continue to monitor for bowel movement. Still very lethargic. Platelets improving up to 61. Continue to await HIT results. Continue aggressive physical therapy. 01/04: Continue agressive Physical therapy, per surgery Continue NPO to allow ischemic bowel to resolve, hold chemical DVT prophylaxis till platelets greater than 100K, Continue TPN. serial labs, patient will need port for TPN at home, will not advance diet until bowel ischemia resolves which can probably be done Tuesday, that is adv to clears. Continue antibiotics, if fever increases repeat CT abd pelvis, not really indicated at this point. Need to wean sedation ( haldol etc), needs PT to help mobilize. Labs checked today platelet has improved anticipate port to be placed on Tuesday. Continue to hold heparin. SCDs placed (1) Small bowel obstruction Current Visit: Yes Status: Acute Plan to address problem: Status post exploratory lap x3. C surgery note. Some ischemic bowel. S/P Hemicolectomy. Fistula washed out. (2) Dehydration Current Visit: Yes Status: Resolved Plan to address problem: Patient well-hydrated. Fluid volumes stable ins and outs stable. (3) Acute Metabolic Encephalopathy with subsequent acute respiratory failure Patient extubated successfully downgraded to MedSur. Advised nursing staff to continue monitoring mental status. (4) Metabolic acidosis Current Visit: Yes Status: Acute Plan to address problem: Has improved from 4.6-3. Post surgery. (5) ANEMIA -precipitous drop in hemoglobin stable (6) Thrombocytopenia Monitor closely. IF persistent decline will consult Enoch ARREOLA Telehematologist. In the mean time will request HIT and continue to hold off chemical prophylaxis. Will obtain PT/OT considering recent fall. (7) severe protein calorie malnutrition cachexia (8) DVT prophylaxis Current Visit: Yes Status: Acute Plan to address problem: Anticoagulation being held secondary to surgery and risk of bleeding. History Interval history: Patient seen and examined, much improved this morning sitting up reports hallucination with morphine. Better with Dilaudid. Hospitalist Physical - Physical exam Narrative exam: VITAL SIGNS: Reviewed. GENERAL: The patient appears normally developed, otherwise lethargic vital signs as documented. HEAD: No signs of head trauma. EYES: Pupils are equal. Extraocular motions intact. EARS: Hearing grossly intact. MOUTH: Oropharynx is normal. NECK: No adenopathy, no JVD. CHEST: Chest with diminished breath sounds bilaterally. No wheezes, rales, or rhonchi. CARDIAC: Regular rate and rhythm. S1 and S2, without murmurs, gallops, or rubs. VASCULAR: No Edema. Peripheral pulses normal and equal in all extremities. ABDOMEN: Soft, nondistended mildly tender hypoactive bowel sounds. Abdominal dressing intact and did not take down. Review of surgeons notes shows that both ostomies are viable. No significant output noted.. MUSCULOSKELETAL: Good range of motion of all major joints. Extremities without clubbing, cyanosis or edema. NEUROLOGIC EXAM: Alert and oriented x 3 but otherwise is still requiring assist, no focal sensory or strength deficits. Speech normal. Follows commands. PSYCHIATRIC: Mood normal. SKIN: detail exam as documented in skin assessment - Constitutional Vitals: Temp Pulse Resp BP Pulse Ox 99.0 F 82 18 100/64 97 01/05/20 07:29 01/05/20 07:29 01/05/20 07:29 01/05/20 07:29 01/05/20 07:29 General appearance: Present: other (Intubated no acute distress.) Results - Labs CBC & Chem 7: 01/05/20 09:17 01/05/20 06:30 Labs: Laboratory Last Values WBC 11.8 K/mm3 (4.5-11.0) H 01/04/20 06:10 RBC 3.25 M/mm3 (3.65-5.03) L 01/04/20 06:10 Hgb 9.6 gm/dl (11.8-15.2) L 01/04/20 06:10 Hct 27.6 % (35.5-45.6) L 01/04/20 06:10 MCV 85 fl (84-94) 01/04/20 06:10 MCH 29 pg (28-32) 01/04/20 06:10 MCHC 35 % (32-34) H 01/04/20 06:10 RDW 15.1 % (13.2-15.2) 01/04/20 06:10 Plt Count 61 K/mm3 (140-440) L 01/04/20 06:10 Lymph % (Auto) 4.4 % (13.4-35.0) L 01/03/20 06:00 Bennett % (Auto) 28.3 % (0.0-7.3) H 01/03/20 06:00 Eos % (Auto) 0.2 % (0.0-4.3) 01/03/20 06:00 Baso % (Auto) 0.2 % (0.0-1.8) 01/03/20 06:00 Lymph # (Auto) 0.4 K/mm3 (1.2-5.4) L 01/03/20 06:00 Bennett # (Auto) 2.8 K/mm3 (0.0-0.8) H 01/03/20 06:00 Eos # (Auto) 0.0 K/mm3 (0.0-0.4) 01/03/20 06:00 Baso # (Auto) 0.0 K/mm3 (0.0-0.1) 01/03/20 06:00 Add Manual Diff Complete 01/02/20 09:04 Total Counted 100 01/02/20 09:04 Seg Neutrophils % 66.9 % (40.0-70.0) 01/03/20 06:00 Seg Neuts % (Manual) 94.0 % (40.0-70.0) H 01/02/20 09:04 Band Neutrophils % 0 % 01/02/20 09:04 Lymphocytes % (Manual) 2.0 % (13.4-35.0) L 01/02/20 09:04 Reactive Lymphs % (Man) 0 % 01/02/20 09:04 Monocytes % (Manual) 4.0 % (0.0-7.3) 01/02/20 09:04 Eosinophils % (Manual) 0 % (0.0-4.3) 01/02/20 09:04 Basophils % (Manual) 0 % (0.0-1.8) 01/02/20 09:04 Metamyelocytes % 0 % 01/02/20 09:04 Myelocytes % 0 % 01/02/20 09:04 Promyelocytes % 0 % 01/02/20 09:04 Blast Cells % 0 % 01/02/20 09:04 Nucleated RBC % Not Reportable 01/02/20 09:04 Seg Neutrophils # 6.5 K/mm3 (1.8-7.7) 01/03/20 06:00 Seg Neutrophils # Man 10.9 K/mm3 (1.8-7.7) H 01/02/20 09:04 Band Neutrophils # 0.0 K/mm3 01/02/20 09:04 Lymphocytes # (Manual) 0.2 K/mm3 (1.2-5.4) L 01/02/20 09:04 Abs React Lymphs (Man) 0.0 K/mm3 01/02/20 09:04 Monocytes # (Manual) 0.5 K/mm3 (0.0-0.8) 01/02/20 09:04 Eosinophils # (Manual) 0.0 K/mm3 (0.0-0.4) 01/02/20 09:04 Basophils # (Manual) 0.0 K/mm3 (0.0-0.1) 01/02/20 09:04 Metamyelocytes # 0.0 K/mm3 01/02/20 09:04 Myelocytes # 0.0 K/mm3 01/02/20 09:04 Promyelocytes # 0.0 K/mm3 01/02/20 09:04 Blast Cells # 0.0 K/mm3 01/02/20 09:04 WBC Morphology Not Reportable 01/02/20 09:04 Hypersegmented Neuts Not Reportable 01/02/20 09:04 Hyposegmented Neuts Not Reportable 01/02/20 09:04 Hypogranular Neuts Not Reportable 01/02/20 09:04 Smudge Cells Not Reportable 01/02/20 09:04 Toxic Granulation Not Reportable 01/02/20 09:04 Toxic Vacuolation Not Reportable 01/02/20 09:04 Dohle Bodies Not Reportable 01/02/20 09:04 Pelger-Huet Anomaly Not Reportable 01/02/20 09:04 Anuradha Rods Not Reportable 01/02/20 09:04 Platelet Estimate Consistent w auto 01/02/20 09:04 Clumped Platelets Not Reportable 01/02/20 09:04 Plt Clumps, EDTA Not Reportable 01/02/20 09:04 Large Platelets Not Reportable 01/02/20 09:04 Giant Platelets Not Reportable 01/02/20 09:04 Platelet Satelliting Not Reportable 01/02/20 09:04 Plt Morphology Comment Not Reportable 01/02/20 09:04 RBC Morphology Not Reportable 01/02/20 09:04 Dimorphic RBCs Not Reportable 01/02/20 09:04 Polychromasia Not Reportable 01/02/20 09:04 Hypochromasia Not Reportable 01/02/20 09:04 Poikilocytosis 1+ 01/02/20 09:04 Anisocytosis 1+ 01/02/20 09:04 Microcytosis Not Reportable 01/02/20 09:04 Macrocytosis Not Reportable 01/02/20 09:04 Spherocytes Not Reportable 01/02/20 09:04 Pappenheimer Bodies Not Reportable 01/02/20 09:04 Sickle Cells Not Reportable 01/02/20 09:04 Target Cells Few 01/02/20 09:04 Tear Drop Cells Not Reportable 01/02/20 09:04 Ovalocytes Few 01/02/20 09:04 Helmet Cells Not Reportable 01/02/20 09:04 Aleman-Centereach Bodies Not Reportable 01/02/20 09:04 [place] Rings Not Reportable 01/02/20 09:04 Phoenix Cells Few 01/02/20 09:04 Bite Cells Not Reportable 01/02/20 09:04 Crenated Cell Not Reportable 01/02/20 09:04 Elliptocytes Few 01/02/20 09:04 Acanthocytes (Spur) Not Reportable 01/02/20 09:04 Rouleaux Not Reportable 01/02/20 09:04 Hemoglobin C Crystals Not Reportable 01/02/20 09:04 Schistocytes Not Reportable 01/02/20 09:04 Malaria parasites Not Reportable 01/02/20 09:04 Christ Bodies Not Reportable 01/02/20 09:04 Hem Pathologist Commnt No 01/02/20 09:04 PT 27.6 Sec. (12.2-14.9) H 12/30/19 22:30 INR 2.53 (0.87-1.13) H 12/30/19 22:30 APTT 42.2 Sec. (24.2-36.6) H 12/30/19 22:30 ABG pH 7.456 pH Units (7.350-7.450) H 01/01/20 05:15 POC ABG pCO2 34.7 mmHg (32.0-48.0) 12/31/19 04:03 ABG pCO2 34.1 mm Hg 01/01/20 05:15 POC ABG pO2 95.1 mmHg (83-108) 12/31/19 04:03 ABG pO2 85.3 mm Hg (80.0-90.0) 01/01/20 05:15 POC ABG HCO3 20.2 12/31/19 04:03 ABG HCO3 23.5 mmol/L (20.0-26.0) 01/01/20 05:15 ABG O2 Saturation 97.1 % (95.0-99.0) 01/01/20 05:15 ABG O2 Content 9.4 (0.0-44) 01/01/20 05:15 POC ABG Base Excess -4.2 12/31/19 04:03 ABG Base Excess -0.3 mmol/L (-2.0-3.0) 01/01/20 05:15 ABG Hemoglobin 6.9 gm/dl (14.0-18.0) L 01/01/20 05:15 ABG Carboxyhemoglobin 1.4 % (0.0-5.0) 01/01/20 05:15 ABG Methemoglobin 0.7 % (0.0-1.5) 01/01/20 05:15 Oxyhemoglobin 95.0 % (95.0-99.0) 01/01/20 05:15 FiO2 35 % 01/01/20 05:15 Sodium 136 mmol/L (137-145) L 01/05/20 06:30 Potassium 4.5 mmol/L (3.6-5.0) 01/05/20 06:30 Chloride 100.4 mmol/L (98-107) 01/05/20 06:30 Carbon Dioxide 29 mmol/L (22-30) 01/05/20 06:30 Anion Gap 11 mmol/L 01/05/20 06:30 BUN 21 mg/dL (9-20) H 01/05/20 06:30 Creatinine 0.6 mg/dL (0.8-1.3) L 01/05/20 06:30 Estimated GFR > 60 ml/min 01/05/20 06:30 BUN/Creatinine Ratio 35 % 01/05/20 06:30 Glucose 126 mg/dL (75-100) H 01/05/20 06:30 POC Glucose 101 (70-105) 01/05/20 06:14 Lactic Acid 1.00 mmol/L (0.7-2.0) 01/05/20 06:35 Calcium 7.6 mg/dL (8.4-10.2) L 01/05/20 06:30 Phosphorus 3.50 mg/dL (2.5-4.5) D 01/05/20 06:30 Magnesium 2.20 mg/dL (1.7-2.3) 01/05/20 06:30 Total Bilirubin 4.50 mg/dL (0.1-1.2) H 01/04/20 06:10 AST 97 units/L (5-40) H 01/04/20 06:10 ALT 52 units/L (7-56) 01/04/20 06:10 Alkaline Phosphatase 107 units/L (35-129) 01/04/20 06:10 Total Protein 4.1 g/dL (6.3-8.2) L 01/04/20 06:10 Albumin 1.8 g/dL (3.9-5) L 01/04/20 06:10 Albumin/Globulin Ratio 0.8 % 01/04/20 06:10 Triglycerides 243 mg/dL (2-149) H 01/03/20 04:00 Lipase 9 units/L (13-60) L 12/29/19 14:29 Urine Color Yellow (Yellow) 12/27/19 Unknown Urine Turbidity Clear (Clear) 12/27/19 Unknown Urine pH 5.0 (5.0-7.0) 12/27/19 Unknown Ur Specific [place] > 1.059 (1.003-1.030) H 12/27/19 Unknown Urine Protein 30 mg/dl mg/dL (Negative) 12/27/19 Unknown Urine Glucose (UA) Neg mg/dL (Negative) 12/27/19 Unknown Urine Ketones 20 mg/dL (Negative) 12/27/19 Unknown Urine Blood Mod (Negative) 12/27/19 Unknown Urine Nitrite Neg (Negative) 12/27/19 Unknown Urine Bilirubin Neg (Negative) 12/27/19 Unknown Urine Urobilinogen < 2.0 mg/dL (<2.0) 12/27/19 Unknown Ur Leukocyte Esterase Neg (Negative) 12/27/19 Unknown Urine WBC (Auto) 2.0 /HPF (0.0-6.0) 12/27/19 Unknown Urine RBC (Auto) 28.0 /HPF (0.0-6.0) 12/27/19 Unknown U Epithel Cells (Auto) < 1.0 /HPF (0-13.0) 12/27/19 Unknown Urine Mucus 3+ /HPF 12/27/19 Unknown Blood Type B POSITIVE 12/29/19 19:52 Antibody Screen Negative 12/29/19 19:52 Crossmatch See Detail 12/29/19 19:52 Azul/IV: Voiding Method Condom Catheter IV Catheter Type [Left Forearm INT / Saline Lock ] IV Catheter Type [Left Hand] INT / Saline Lock IV Catheter Type [Left Wrist] Peripheral IV IV Catheter Type [Right Peripheral IV Forearm] IV Catheter Type [Right Upper PICC Line arm] IV Catheter Type [Right INT / Saline Lock Antecubital] Active Medications - Current Medications Current Medications: Generic Name Dose Route Start Last Admin Trade Name Freq PRN Reason Stop Dose Admin Acetaminophen 650 mg 12/27/19 23:14 01/04/20 10:25 Tylenol PO 650 mg Q4H PRN Administration Pain MILD(1-3)/Fever >100.5/LAZCANO Famotidine 20 mg 12/27/19 23:45 01/04/20 22:32 Pepcid IV 20 mg BID SUSAN Administration Haloperidol Lactate 5 mg 12/31/19 09:19 Haldol IV Q6H PRN Agitation Hydrophilic Ointment 1 applic 12/29/19 22:33 Vaseline Lip Therapy TP Q2HR PRN Dry Lips Levofloxacin/Dextrose 500 mg in 100 mls @ 100 mls/hr 01/02/20 10:00 01/04/20 10:25 Levaquin 500mg/100ml IV 01/07/20 09:59 100 mls/hr Q24HR SUSAN Administration Protocol Metronidazole 500 mg in 100 mls @ 100 mls/hr 01/02/20 14:00 01/05/20 05:06 Flagyl 500 Mg/100 Ml IV 01/07/20 13:59 100 mls/hr Q8HR SUSAN Administration Protocol Amino Acids/Electrolytes/Dextrose 2,400 mls @ 100 mls/hr 01/04/20 20:00 01/04/20 20:47 Tpn Adult IV 01/05/20 19:59 100 mls/hr DAILY@1999 [facility] Administration Protocol Sodium Chloride 1,000 mls @ 42 mls/hr 01/04/20 22:45 Nacl 0.9% 1000 Ml IV DIRECT SUSAN Amino Acids/Electrolytes/Dextrose 2,400 mls @ 100 mls/hr 01/05/20 20:00 Tpn Adult IV 01/06/20 19:59 DAILY@1999 [facility] Protocol Morphine Sulfate 2 mg 12/27/19 23:14 01/05/20 02:44 Morphine IV 2 mg Q4H PRN Administration Pain, Moderate (4-6) Multi-Ingred Cream/Lotion/Oil/Oint 1 applic 12/29/19 22:33 Artificial Tears Ophth Oint OU Q4HR PRN Dry Eye(s) Nicotine 21 mg 12/31/19 10:00 01/04/20 10:25 Habitrol TD 21 mg QDAY SUSAN Administration Ondansetron HCl 4 mg 12/27/19 23:14 01/02/20 21:44 Zofran IV 4 mg Q3H PRN Administration Nausea And Vomiting Sodium Chloride 10 ml 12/28/19 10:00 01/04/20 22:32 Sodium Chloride Flush Syringe 10 Ml IV 10 ml BID SUSAN Administration Sodium Chloride 10 ml 12/27/19 23:14 12/29/19 10:40 Sodium Chloride Flush Syringe 10 Ml IV 10 ml PRN PRN Administration LINE FLUSH Nutrition/Malnutrition Assess - Dietary Evaluation Nutrition/Malnutrition Findings: Nutrition Notes Start: 12/30/19 08:57 Freq: Status: Active Protocol: Document 01/05/20 07:49 MK (Rec: 01/05/20 07:56 MK [facility][id number]) Nutrition Notes Initial or Follow up Reassessment Other Pertinent Diagnosis SBO s/p hemicolectomy, R nephrectomy, anemia Current Diet CPN at 100ml/hr Labs/Tests Na 136 BUN 21 Cr 0.6 BG 126 Pertinent Medications Reviewed Height 5 ft 8 in Weight 74.843 kg [place] Body Weight (kg) 70.00 BMI 25.0 Weight Status Overweight Subjective/Other Information CPN day 5. Per chart CPN running though PICC line. Pt may have diet advanced Tuesday. Percent of energy/protein needs met: 81%/100% Burn Absent Trauma Absent GI Symptoms None Current % PO Negligible Minimum of two criteria No physical signs of malnutrition #1 Nutrition Diagnosis Inadequate oral intake Diagnosis Progress(for reassessment Continues documentation) Is patient on ventilator? No Is Patient Ambulatory and/or Out of Bed No REE-([facility]-confined to bed) 1968.360 Calculation Used for Recommendations [facility] Additional Notes Protein needs 1.2-2g/k- 150g Fluid needs 1ml/kcal Nutrition Intervention Change Diet Order: Continue CPN Nutrition Support: CPN at 100ml/hr: 15% dextrose Na 200 mEq, K 90 mEq, Mg 10 mEq. MVI Osmolality: 1400 Kcal 1,590 Protein (gm) 100 Carbohydrates (gm) 350 Fat (gm) 0 Fluid (mL) 2,400 Fiber (gm) 0 Goal #1 PN to meet nutrient needs as best possible Anticipated Discharge Needs: unable to determine at this time Follow-Up By: 01/06/20 Additional Comments Labs: BMP, Mg, Phos
[2020-01-05] MEDS: NICOTINE 21 MG/24 HR PATCH TD SCH (09:50)
[2020-01-05 09:51] LABS: Hematocrit 25.8 % (35.5-45.6); Mean Corpuscular HGB Conc 35 % (32-34); Mean Corpuscular Volume 85 fl (84-94); Platelet Count 114 K/mm3 (140-440); Red Blood Count 3.05 M/mm3 (3.65-5.03); Red Cell Distribution Width 15.2 % (13.2-15.2)
[2020-01-05] MEDS: HYDROmorphone 1 MG/1 ML INJ IV PRN ×3 (12:26→22:24)
[2020-01-05] MEDS: FAMOTIDINE 20 MG/2 ML INJ IV SCH ×2 (12:27→22:36)
[2020-01-05 13:50] LABS: Anisocytosis Few; Basophils % (Manual) 0 % (0.0-1.8); Platelet Estimate Consistent w Auto; Target Cells 1+; Total Cells Counted 100
--- NOTE | 2020-01-05 18:55 | XRay Report ---
EXAMINATION: Right forearm radiograph, 2 views, 01/05/2020 CLINICAL INFORMATION: Right forearm swelling COMPARISON: None. FINDINGS: There is generalized soft tissue swelling of the proximal forearm. No acute fracture is vis ualized. IMPRESSION: 1. Generalized soft tissue swelling of the forearm. Signer Name: Billie Mao MD Signed: 01/05/2020 6:50 PM Workstation Name: [id number]
[2020-01-05] MEDS ORDERED: TOTAL PARENTERAL NUTRITION 2,400 ML IV SCH (20:00)
[2020-01-05 20:38] LABS: BUN/Creatinine Ratio 33; Blood Urea Nitrogen 20 mg/dL (9-20); Calcium 7.7 mg/dL (8.4-10.2); Hemolysis Index 1
[2020-01-06] MEDS: HYDROmorphone 1 MG/1 ML INJ IV PRN ×5 (02:22→19:21)
[2020-01-06] MEDS: metroNIDAZOLE/NS 500 MG/100 ML 500 MG/100 ML BAG IV SCH ×3 (05:19→22:03)
[2020-01-06 07:52] LABS: Hematocrit 24.7 % (35.5-45.6); Hemoglobin 8.6 gm/dl (11.8-15.2); Mean Corpuscular HGB Conc 35 % (32-34); Mean Corpuscular Volume 85 fl (84-94); Platelet Count 222 K/mm3 (140-440); Red Blood Count 2.92 M/mm3 (3.65-5.03)
[2020-01-06 08:31] LABS: Blood Urea Nitrogen 20 mg/dL (9-20); Calcium 7.8 mg/dL (8.4-10.2); Hemolysis Index 3
[2020-01-06 08:33] LABS: BUN/Creatinine Ratio 33
[2020-01-06] MEDS ORDERED: POLYETHYLENE GLYCOL 3350 17 GM POWDER PO PRN (10:00)
[2020-01-06] MEDS: NICOTINE 21 MG/24 HR PATCH TD SCH (10:21)
[2020-01-06] MEDS: FAMOTIDINE 20 MG/2 ML INJ IV SCH ×2 (10:22→22:04)
--- NOTE | 2020-01-06 11:06 | Progress Note ---
Assessment and Plan Assessment and plan: Patient is a 39-year-old F Taiwanese male with a past medical history of right- sided nephrectomy status post Wilms tumor and appendectomy both of which occurred in the late 80s who is presenting with abdominal pain. Patient states for the past 2 days he has had some abdominal distention in the right lower quadrant and crampy 10 out of 10 pain. He has had multiple episodes of nausea and vomiting. Denies fever chills cough cold or congestion. On December 30, [address] showed patient to have free air in colon. Surgical intervention was required. Patient had surgery had partial hemicolectomy during exploratory laparotomy was subsequently intubated and transferred to the intensive care unit. On December 31, 2019 patient returned to the OR for an additional surgery. After initial extubation. Patient was not follow commands agitated unable to really protect airways and therefore was reintubated. 01/02: s/p 2 UNITS OF FFP, Mild improvement in PLT, FOLLOW HIT. Monitor AM labs, Consult Dr Kendall if plt continues to drop. Low grade fever noted, will monitor, Room changed to better monitor risk of fall as patient still with some lethargy. ABG checked yesterday, did not reflect elevated CO2 01/03: Patient clinically stable showing some improvement. Continues on TPN. Continue to monitor for bowel movement. Still very lethargic. Platelets improving up to 61. Continue to await HIT results. Continue aggressive physical therapy. 01/04: Continue agressive Physical therapy, per surgery Continue NPO to allow ischemic bowel to resolve, hold chemical DVT prophylaxis till platelets greater than 100K, Continue TPN. serial labs, patient will need port for TPN at home, will not advance diet until bowel ischemia resolves which can probably be done Tuesday, that is adv to clears. Continue antibiotics, if fever increases repeat CT abd pelvis, not really indicated at this point. Need to wean sedation ( haldol etc), needs PT to help mobilize. Labs checked today platelet has improved anticipate port to be placed on Tuesday. Continue to hold heparin. SCDs placed 01/05: Continues to clinically improve. Discussed with surgeon today daily 4FT small bowel left following surgery. Patient will need TPN for a long time. Anticipate port placement for tomorrow (1) Small bowel obstruction Current Visit: Yes Status: Acute Plan to address problem: Status post exploratory lap x3. C surgery note. Some ischemic bowel. S/P Hemicolectomy. Fistula washed out. (2) Dehydration Current Visit: Yes Status: Resolved Plan to address problem: Patient well-hydrated. Fluid volumes stable ins and outs stable. (3) Acute Metabolic Encephalopathy with subsequent acute respiratory failure Patient extubated successfully downgraded to MedSur. Advised nursing staff to continue monitoring mental status. (4) Metabolic acidosis Current Visit: Yes Status: Acute Plan to address problem: Has improved from 4.6-3. Post surgery. (5) ANEMIA -precipitous drop in hemoglobin stable (6) Thrombocytopenia Monitor closely. IF persistent decline will consult Enoch ARREOLA Telehematologist. In the mean time will request HIT and continue to hold off chemical prophylaxis. Will obtain PT/OT considering recent fall. (7) Severe protein calorie malnutrition cachexia (8) DVT prophylaxis Current Visit: Yes Status: Acute Plan to address problem: Anticoagulation being held secondary to surgery and risk of bleeding. History Interval history: Patient seen and examined, continues to show marked improvement. Hospitalist Physical - Physical exam Narrative exam: VITAL SIGNS: Reviewed. GENERAL: The patient appears normally developed, vital signs as documented. HEAD: No signs of head trauma. EYES: Pupils are equal. Extraocular motions intact. EARS: Hearing grossly intact. MOUTH: Oropharynx is normal. NECK: No adenopathy, no JVD. CHEST: Chest with diminished breath sounds bilaterally. No wheezes, rales, or rhonchi. CARDIAC: Regular rate and rhythm. S1 and S2, without murmurs, gallops, or rubs. VASCULAR: No Edema. Peripheral pulses normal and equal in all extremities. ABDOMEN: Soft, nondistended mildly tender hypoactive bowel sounds. Abdominal dressing intact and did not take down. Review of surgeons notes shows that both ostomies are viable. No significant output noted.. MUSCULOSKELETAL: Good range of motion of all major joints. Extremities without clubbing, cyanosis or edema. NEUROLOGIC EXAM: Alert and oriented x 3 but otherwise is still requiring ass ist, no focal sensory or strength deficits. Speech normal. Follows commands. PSYCHIATRIC: Mood normal. SKIN: detail exam as documented in skin assessment - Constitutional Vitals: Temp Pulse Resp BP Pulse Ox 99.9 F H 85 18 94/55 100 01/06/20 07:34 01/06/20 07:34 01/06/20 07:34 01/06/20 07:34 01/06/20 07:34 General appearance: Present: other (Intubated no acute distress.) Results - Labs CBC & Chem 7: 01/06/20 07:40 01/06/20 07:40 Labs: Laboratory Last Values WBC 13.3 K/mm3 (4.5-11.0) H 01/06/20 07:40 RBC 2.92 M/mm3 (3.65-5.03) L 01/06/20 07:40 Hgb 8.6 gm/dl (11.8-15.2) L 01/06/20 07:40 Hct 24.7 % (35.5-45.6) L 01/06/20 07:40 MCV 85 fl (84-94) 01/06/20 07:40 MCH 29 pg (28-32) 01/06/20 07:40 MCHC 35 % (32-34) H 01/06/20 07:40 RDW 15.0 % (13.2-15.2) 01/06/20 07:40 Plt Count 222 K/mm3 (140-440) 01/06/20 07:40 Lymph % (Auto) 4.4 % (13.4-35.0) L 01/03/20 06:00 [place] % (Auto) Curling Machine Operator 01/05/20 09:17 Eos % (Auto) 0.2 % (0.0-4.3) 01/03/20 06:00 Baso % (Auto) 0.2 % (0.0-1.8) 01/03/20 06:00 Lymph # (Auto) 0.4 K/mm3 (1.2-5.4) L 01/03/20 06:00 [place] # (Auto) 2.8 K/mm3 (0.0-0.8) H 01/03/20 06:00 Eos # (Auto) 0.0 K/mm3 (0.0-0.4) 01/03/20 06:00 Baso # (Auto) 0.0 K/mm3 (0.0-0.1) 01/03/20 06:00 Add Manual Diff Complete 01/05/20 09:17 Total Counted 100 01/05/20 09:17 Seg Neutrophils % 66.9 % (40.0-70.0) 01/03/20 06:00 Seg Neuts % (Manual) 97.0 % (40.0-70.0) H 01/05/20 09:17 Band Neutrophils % 0 % 01/05/20 09:17 Lymphocytes % (Manual) 0 % (13.4-35.0) L 01/05/20 09:17 Reactive Lymphs % (Man) 0 % 01/05/20 09:17 Monocytes % (Manual) 2.0 % (0.0-7.3) 01/05/20 09:17 Eosinophils % (Manual) 1.0 % (0.0-4.3) 01/05/20 09:17 Basophils % (Manual) 0 % (0.0-1.8) 01/05/20 09:17 Metamyelocytes % 0 % 01/05/20 09:17 Myelocytes % 0 % 01/05/20 09:17 Promyelocytes % 0 % 01/05/20 09:17 Blast Cells % 0 % 01/05/20 09:17 Nucleated RBC % Not Reportable 01/05/20 09:17 Seg Neutrophils # 6.5 K/mm3 (1.8-7.7) 01/03/20 06:00 Seg Neutrophils # Man 11.7 K/mm3 (1.8-7.7) H 01/05/20 09:17 Band Neutrophils # 0.0 K/mm3 01/05/20 09:17 Lymphocytes # (Manual) 0.0 K/mm3 (1.2-5.4) L 01/05/20 09:17 Abs React Lymphs (Man) 0.0 K/mm3 01/05/20 09:17 Monocytes # (Manual) 0.2 K/mm3 (0.0-0.8) 01/05/20 09:17 Eosinophils # (Manual) 0.1 K/mm3 (0.0-0.4) 01/05/20 09:17 Basophils # (Manual) 0.0 K/mm3 (0.0-0.1) 01/05/20 09:17 Metamyelocytes # 0.0 K/mm3 01/05/20 09:17 Myelocytes # 0.0 K/mm3 01/05/20 09:17 Promyelocytes # 0.0 K/mm3 01/05/20 09:17 Blast Cells # 0.0 K/mm3 01/05/20 09:17 WBC Morphology Not Reportable 01/05/20 09:17 Hypersegmented Neuts Not Reportable 01/05/20 09:17 Hyposegmented Neuts Not Reportable 01/05/20 09:17 Hypogranular Neuts Not Reportable 01/05/20 09:17 Smudge Cells Not Reportable 01/05/20 09:17 Toxic Granulation Not Reportable 01/05/20 09:17 Toxic Vacuolation Not Reportable 01/05/20 09:17 Dohle Bodies Not Reportable 01/05/20 09:17 Pelger-Huet Anomaly Not Reportable 01/05/20 09:17 Anuradha Rods Not Reportable 01/05/20 09:17 Platelet Estimate Consistent w auto 01/05/20 09:17 Clumped Platelets Not Reportable 01/05/20 09:17 Plt Clumps, EDTA Not Reportable 01/05/20 09:17 Large Platelets Not Reportable 01/05/20 09:17 Giant Platelets Not Reportable 01/05/20 09:17 Platelet Satelliting Not Reportable 01/05/20 09:17 Plt Morphology Comment Not Reportable 01/05/20 09:17 RBC Morphology Not Reportable 01/05/20 09:17 Dimorphic RBCs Not Reportable 01/05/20 09:17 Polychromasia Not Reportable 01/05/20 09:17 Hypochromasia Not Reportable 01/05/20 09:17 Poikilocytosis Not Reportable 01/05/20 09:17 Anisocytosis Few 01/05/20 09:17 Microcytosis Not Reportable 01/05/20 09:17 Macrocytosis Not Reportable 01/05/20 09:17 Spherocytes Not Reportable 01/05/20 09:17 Pappenheimer Bodies Not Reportable 01/05/20 09:17 Sickle Cells Not Reportable 01/05/20 09:17 Target Cells 1+ 01/05/20 09:17 Tear Drop Cells Not Reportable 01/05/20 09:17 Ovalocytes Not Reportable 01/05/20 09:17 Helmet Cells Not Reportable 01/05/20 09:17 [place] Bodies Not Reportable 01/05/20 09:17 [place] Rings Not Reportable 01/05/20 09:17 [place] Cells Not Reportable 01/05/20 09:17 Bite Cells Not Reportable 01/05/20 09:17 Crenated Cell Not Reportable 01/05/20 09:17 Elliptocytes Not Reportable 01/05/20 09:17 Acanthocytes (Spur) Not Reportable 01/05/20 09:17 Rouleaux Not Reportable 01/05/20 09:17 Hemoglobin C Crystals Not Reportable 01/05/20 09:17 Schistocytes Not Reportable 01/05/20 09:17 Malaria parasites Not Reportable 01/05/20 09:17 Christ Bodies Not Reportable 01/05/20 09:17 Hem Pathologist Commnt No 01/05/20 09:17 PT 27.6 Sec. (12.2-14.9) H 12/30/19 22:30 INR 2.53 (0.87-1.13) H 12/30/19 22:30 APTT 42.2 Sec. (24.2-36.6) H 12/30/19 22:30 ABG pH 7.456 pH Units (7.350-7.450) H 01/01/20 05:15 POC ABG pCO2 34.7 mmHg (32.0-48.0) 12/31/19 04:03 ABG pCO2 34.1 mm Hg 01/01/20 05:15 POC ABG pO2 95.1 mmHg (83-108) 12/31/19 04:03 ABG pO2 85.3 mm Hg (80.0-90.0) 01/01/20 05:15 POC ABG HCO3 20.2 12/31/19 04:03 ABG HCO3 23.5 mmol/L (20.0-26.0) 01/01/20 05:15 ABG O2 Saturation 97.1 % (95.0-99.0) 01/01/20 05:15 ABG O2 Content 9.4 (0.0-44) 01/01/20 05:15 POC ABG Base Excess -4.2 12/31/19 04:03 ABG Base Excess -0.3 mmol/L (-2.0-3.0) 01/01/20 05:15 ABG Hemoglobin 6.9 gm/dl (14.0-18.0) L 01/01/20 05:15 ABG Carboxyhemoglobin 1.4 % (0.0-5.0) 01/01/20 05:15 ABG Methemoglobin 0.7 % (0.0-1.5) 01/01/20 05:15 Oxyhemoglobin 95.0 % (95.0-99.0) 01/01/20 05:15 FiO2 35 % 01/01/20 05:15 Sodium 139 mmol/L (137-145) 01/06/20 07:40 Potassium 4.9 mmol/L (3.6-5.0) 01/06/20 07:40 Chloride 102.7 mmol/L (98-107) 01/06/20 07:40 Carbon Dioxide 25 mmol/L (22-30) 01/06/20 07:40 Anion Gap 16 mmol/L 01/06/20 07:40 BUN 20 mg/dL (9-20) 01/06/20 07:40 Creatinine 0.6 mg/dL (0.8-1.3) L 01/06/20 07:40 Estimated GFR > 60 ml/min 01/06/20 07:40 BUN/Creatinine Ratio 33 % 01/06/20 07:40 Glucose 124 mg/dL (75-100) H 01/06/20 07:40 POC Glucose 132 (70-105) H 01/06/20 06:29 Lactic Acid 1.00 mmol/L (0.7-2.0) 01/05/20 06:35 Calcium 7.8 mg/dL (8.4-10.2) L 01/06/20 07:40 Phosphorus 3.50 mg/dL (2.5-4.5) D 01/05/20 06:30 Magnesium 2.30 mg/dL (1.7-2.3) 01/05/20 Unknown Total Bilirubin 4.50 mg/dL (0.1-1.2) H 01/04/20 06:10 AST 97 units/L (5-40) H 01/04/20 06:10 ALT 52 units/L (7-56) 01/04/20 06:10 Alkaline Phosphatase 107 units/L (35-129) 01/04/20 06:10 Total Protein 4.1 g/dL (6.3-8.2) L 01/04/20 06:10 Albumin 1.8 g/dL (3.9-5) L 01/04/20 06:10 Albumin/Globulin Ratio 0.8 % 01/04/20 06:10 Triglycerides 243 mg/dL (2-149) H 01/03/20 04:00 Lipase 9 units/L (13-60) L 12/29/19 14:29 Urine Color Yellow (Yellow) 12/27/19 Unknown Urine Turbidity Clear (Clear) 12/27/19 Unknown Urine pH 5.0 (5.0-7.0) 12/27/19 Unknown Ur Specific [place] > 1.059 (1.003-1.030) H 12/27/19 Unknown Urine Protein 30 mg/dl mg/dL (Negative) 12/27/19 Unknown Urine Glucose (UA) Neg mg/dL (Negative) 12/27/19 Unknown Urine Ketones 20 mg/dL (Negative) 12/27/19 Unknown Urine Blood Mod (Negative) 12/27/19 Unknown Urine Nitrite Neg (Negative) 12/27/19 Unknown Urine Bilirubin Neg (Negative) 12/27/19 Unknown Urine Urobilinogen < 2.0 mg/dL (<2.0) 12/27/19 Unknown Ur Leukocyte Esterase Neg (Negative) 12/27/19 Unknown Urine WBC (Auto) 2.0 /HPF (0.0-6.0) 12/27/19 Unknown Urine RBC (Auto) 28.0 /HPF (0.0-6.0) 12/27/19 Unknown U Epithel Cells (Auto) < 1.0 /HPF (0-13.0) 12/27/19 Unknown Urine Mucus 3+ /HPF 12/27/19 Unknown Blood Type B POSITIVE 12/29/19 19:52 Antibody Screen Negative 12/29/19 19:52 Crossmatch See Detail 12/29/19 19:52 Azul/IV: Voiding Method Condom Catheter IV Catheter Type [Left Forearm INT / Saline Lock ] IV Catheter Type [Left Hand] INT / Saline Lock IV Catheter Type [Left Wrist] Peripheral IV IV Catheter Type [Right Peripheral IV Forearm] IV Catheter Type [Right Upper PICC Line arm] IV Catheter Type [Right INT / Saline Lock Antecubital] Active Medications - Current Medications Current Medications: Generic Name Dose Route Start Last Admin Trade Name Freq PRN Reason Stop Dose Admin Acetaminophen 650 mg 12/27/19 23:14 01/04/20 10:25 Tylenol PO 650 mg Q4H PRN Administration Pain MILD(1-3)/Fever >100.5/LAZCANO Famotidine 20 mg 12/27/19 23:45 01/06/20 10:22 Pepcid IV 20 mg BID SUSAN Administration Hydromorphone HCl 0.5 mg 01/05/20 10:14 01/06/20 10:22 Dilaudid IV 0.5 mg Q4H PRN Administration Pain , Severe (7-10) Hydrophilic Ointment 1 applic 12/29/19 22:33 Vaseline Lip Therapy TP Q2HR PRN Dry Lips Levofloxacin/Dextrose 500 mg in 100 mls @ 100 mls/hr 01/02/20 10:00 01/06/20 10:22 Levaquin 500mg/100ml IV 01/07/20 09:59 100 mls/hr Q24HR SUSAN Administration Protocol Metronidazole 500 mg in 100 mls @ 100 mls/hr 01/02/20 14:00 01/06/20 05:19 Flagyl 500 Mg/100 Ml IV 01/07/20 13:59 100 mls/hr Q8HR [facility] Administration Protocol Sodium Chloride 1,000 mls @ 42 mls/hr 01/04/20 22:45 Nacl 0.9% 1000 Ml IV DIRECT SUSAN Amino Acids/Electrolytes/Dextrose 2,400 mls @ 100 mls/hr 01/05/20 20:00 01/05/20 20:11 Tpn Adult IV 01/06/20 19:59 100 mls/hr DAILY@1999 [facility] Administration Protocol Amino Acids/Electrolytes/Dextrose 2,400 mls @ 100 mls/hr 01/06/20 20:00 Tpn Adult IV 01/07/20 19:59 DAILY@1999 [facility] Protocol Multi-Ingred Cream/Lotion/Oil/Oint 1 applic 12/29/19 22:33 Artificial Tears Ophth Oint OU Q4HR PRN Dry Eye(s) Nicotine 21 mg 12/31/19 10:00 01/06/20 10:21 Habitrol TD 21 mg QDAY SUSAN Administration Ondansetron HCl 4 mg 12/27/19 23:14 01/02/20 21:44 Zofran IV 4 mg Q3H PRN Administration Nausea And Vomiting Sodium Chloride 10 ml 12/28/19 10:00 01/06/20 10:27 Sodium Chloride Flush Syringe 10 Ml IV 10 ml BID SUSAN Administration Sodium Chloride 10 ml 12/27/19 23:14 12/29/19 10:40 Sodium Chloride Flush Syringe 10 Ml IV 10 ml PRN PRN Administration LINE FLUSH Nutrition/Malnutrition Assess - Dietary Evaluation Nutrition/Malnutrition Findings: Nutrition Notes Start: 12/30/19 08:57 Freq: Status: Active Protocol: Document 01/06/20 10:25 LP (Rec: 01/06/20 10:32 LP [id number]) Nutrition Notes Initial or Follow up Reassessment Other Pertinent Diagnosis SBO s/p hemicolectomy, R nephrectomy, anemia Current Diet CPN at 100ml/hr Labs/Tests Reviewed Pertinent Medications Reviewed Height 5 ft 8 in Weight 62.6 kg [place] Body Weight (kg) 70.00 BMI 20.9 Weight change and time frame Wt change noted Weight Status Appropriate Subjective/Other Information CPN day 6. Pt continues on CPN . Pt platelets are WNL. Clear liquid diet possible Tuesday. Will need TPN fci and will need to start cycling TPN Tuesday. Percent of energy/protein needs met: 81%/100% Burn Absent Trauma Absent GI Symptoms None Current % PO Negligible Minimum of two criteria No physical signs of malnutrition #1 Nutrition Diagnosis Inadequate oral intake Diagnosis Progress(for reassessment Continues documentation) Is patient on ventilator? No Is Patient Ambulatory and/or Out of Bed No REE-([facility]-confined to bed) 8550.079 Calculation Used for Recommendations [facility] Additional Notes Protein needs 78-94g (1.25-1. 5g/kg) Fluid needs 1ml/kcal Nutrition Intervention Change Diet Order: Continue CPN Nutrition Support: CPN at 100ml/hr: 48mEq K. MVI Osmolality: 1365 Kcal 1,590 Protein (gm) 100 Carbohydrates (gm) 350 Fat (gm) 0 Fluid (mL) 2,400 Fiber (gm) 0 Goal #1 CPN to meet nutrient needs as best possible Anticipated Discharge Needs: unable to determine at this time Follow-Up By: 01/07/20 Additional Comments Labs in AM: BMP, Mg, Phos
--- NOTE | 2020-01-06 12:53 | Event Note ---
Date: 01/06/20 VSS AF, I had a long conversation with patient about all of his surgical findings and outlook, incision OK, ostomies ok, labs OK, will adv to clear liquid diet and see how he tolerates it.
[2020-01-06] MEDS ORDERED: TOTAL PARENTERAL NUTRITION 2,400 ML IV SCH (20:00)
[2020-01-06] MEDS: SODIUM CHLORIDE 0.9% 1000 ML 1,000 ML IV SCH (20:15)
[2020-01-07] MEDS: HYDROmorphone 1 MG/1 ML INJ IV PRN ×6 (00:21→21:40)
--- NOTE | 2020-01-07 05:49 | Progress Note ---
Assessment and Plan POD // VSS AF, got out of bed again last night and removed ostomy appliance, adv to clear liquids yesterday, will watch ostomy output carefully, need WOC nurse to transition appliances so patient can be mobile and maintain integrity of ostomy bags ( end jejunostomy on left side and mucous fistula on right/ education on how to apply and care for appliances), WBC pending today, afebrile, consider de-escalating antibiotics, mobilize/PT. Consider chemical DVT prophylaxis once HIT assay back. We need pillowcase cleaner to help patient apply for medicaid or some type of health insurance. Will delay port until all question of potential infection is off the table. Repeat CT abd pelvis with iv contrast, no oral contrast. Continue TPN and arrange for home TPN eventually. Overall, a very difficult case. Subjective Date of service: 01/07/20 Patient Reports: Positive: pain is less Objective Vital Signs - 12hr 01/06/20 01/07/20 01/07/20 19:25 00:30 05:26 Temperature 99.9 F H 98.7 F 99.0 F Pulse Rate 89 96 H 96 H Respiratory 17 17 17 Rate Blood Pressure 103/64 105/66 111/62 O2 Sat by Pulse 99 97 97 Oximetry - General physical appearance no distress - Labs 01/06/20 07:40 01/06/20 07:40 Diabetes panel 01/06/20 Range/Units 07:40 Sodium 139 (137-145) mmol/L Potassium 4.9 (3.6-5.0) mmol/L Chloride 102.7 (98-107) mmol/L Carbon Dioxide 25 (22-30) mmol/L BUN 20 (9-20) mg/dL Creatinine 0.6 L (0.8-1.3) mg/dL Glucose 124 H (75-100) mg/dL Calcium 7.8 L (8.4-10.2) mg/dL Calcium panel 01/06/20 Range/Units 07:40 Calcium 7.8 L (8.4-10.2) mg/dL Pituitary panel 01/06/20 Range/Units 07:40 Sodium 139 (137-145) mmol/L Potassium 4.9 (3.6-5.0) mmol/L Chloride 102.7 (98-107) mmol/L Carbon Dioxide 25 (22-30) mmol/L BUN 20 (9-20) mg/dL Creatinine 0.6 L (0.8-1.3) mg/dL Glucose 124 H (75-100) mg/dL Calcium 7.8 L (8.4-10.2) mg/dL Adrenal panel 01/06/20 Range/Units 07:40 Sodium 139 (137-145) mmol/L Potassium 4.9 (3.6-5.0) mmol/L Chloride 102.7 (98-107) mmol/L Carbon Dioxide 25 (22-30) mmol/L BUN 20 (9-20) mg/dL Creatinine 0.6 L (0.8-1.3) mg/dL Glucose 124 H (75-100) mg/dL Calcium 7.8 L (8.4-10.2) mg/dL
[2020-01-07] MEDS: metroNIDAZOLE/NS 500 MG/100 ML 500 MG/100 ML BAG IV SCH (06:12)
--- NOTE | 2020-01-07 09:06 | Cat Scan Report ---
CT ABDOMEN AND PELVIS WITH CONTRAST HISTORY: Ischemic bowel. COMPARISON: 12/29/2019 TECHNIQUE: Helical CT images of the abdomen and pelvis were obtained following administration of intr avenous contrast. Sagittal and coronal reformatted images were reviewed. All CT scans at this [facility] are performed using CT dose reduction for ALARA by means of automated exposure control. CONTRAST: 100 ml of intravenous contrast administered. FINDINGS: Abdomen/pelvis: Interval removal of multiple small bowel loops with ostomy placement in the lower qu adrants is noted since the previous examination. There is no evidence for bowel obstruction. No signi ficant bowel wall thickening. No pneumatosis. There is a large peripherally enhancing fluid collectio n throughout the abdomen and pelvis which is new since the previous examination. There is trace gas i n the anterior portions of this collection near the diaphragm. Free air has resolved since the previo us exam. The liver, biliary system, pancreas, spleen, adrenal glands and left kidney remain unremarkable. The right kidney is surgically absent. The aorta and vascular structures are normal caliber and widely patent. There is trace gas in the bladder anteriorly. The remainder of the bladder is unremarkable. This may be secondary to instrumentation. Lungs/bones: Heart size is normal. Moderate layering left pleural effusion and small layering right pleural effusion have developed. Mild bibasilar atelectasis. IMPRESSION: Interval abdominal surgery with removal of most of the small bowel is demonstrated. Please correlate with the patient's history. No evidence for bowel obstruction or ischemic bowel on today's exam. A large loculated fluid collection has developed throughout the abdomen which is primarily located in the right upper quadrant and bilateral lower quadrants. It is unclear if this represents an early ab scess or sterile collection. Stable right nephrectomy changes. Bilateral pleural effusions and bibasilar atelectasis. There is trace gas in the bladder which could be secondary to instrumentation. No bladder wall thicke valentino is identified to suggest an advanced cystitis. Please correlate with the patient's history. Signer Name: Chandan Prakash Jr, MD Signed: 01/07/2020 9:01 AM Workstation Name: [id number]
--- NOTE | 2020-01-07 09:27 | Progress Note ---
Assessment and Plan Assessment and plan: Patient is a 39-year-old F [place] male with a past medical history of right- sided nephrectomy status post Wilms tumor and appendectomy both of which occurred in the late 80s who is presenting with abdominal pain. Patient states for the past 2 days he has had some abdominal distention in the right lower quadrant and crampy 10 out of 10 pain. He has had multiple episodes of nausea and vomiting. Denies fever chills cough cold or congestion. On December 30, [address] showed patient to have free air in colon. Surgical intervention was required. Patient had surgery had partial hemicolectomy during exploratory laparotomy was subsequently intubated and transferred to the intensive care unit. On December 31, 2019 patient returned to the OR for an additional surgery. After initial extubation. Patient was not follow commands agitated unable to really protect airways and therefore was reintubated. 01/02: s/p 2 UNITS OF FFP, Mild improvement in PLT, FOLLOW HIT. Monitor AM labs, Consult Dr Kendall if plt continues to drop. Low grade fever noted, will monitor, Room changed to better monitor risk of fall as patient still with some lethargy. ABG checked yesterday, did not reflect elevated CO2 01/03: Patient clinically stable showing some improvement. Continues on TPN. Continue to monitor for bowel movement. Still very lethargic. Platelets improving up to 61. Continue to await HIT results. Continue aggressive physical therapy. 01/04: Continue agressive Physical therapy, per surgery Continue NPO to allow ischemic bowel to resolve, hold chemical DVT prophylaxis till platelets greater than 100K, Continue TPN. serial labs, patient will need port for TPN at home, will not advance diet until bowel ischemia resolves which can probably be done Tuesday, that is adv to clears. Continue antibiotics, if fever increases repeat CT abd pelvis, not really indicated at this point. Need to wean sedation ( haldol etc), needs PT to help mobilize. Labs checked today platelet has improved anticipate port to be placed on Tuesday. Continue to hold heparin. SCDs placed 01/05: Continues to clinically improve. Discussed with surgeon today Only about 4FT small bowel left following surgery. Patient will need TPN for a long time. Anticipate port placement for tomorrow 01/06: Surgeon advancing diet to clear liquid today to see how the patient tolerates. Case management still working on health insurance application for the patient. Patient understands longer to recovery. Continue physical therapy to strengthen the patient as he may end up going home. Awaiting labs for this morning if white count continues to increase will obtain ID consultation to rule out any underlying infection. Blood is noted at this time on overview. Await repeat CT abdomen and pelvis with IV contrast. Port placement per surgeon when no evidence of systemic infection. Continue pain control. Thrombocytopenia has resolved if HIT result is negative will resume chemical prophylaxis. Plan of care discussed with the patient and nursing staff at bedside (1) Small bowel obstruction Current Visit: Yes Status: Acute Plan to address problem: Status post exploratory lap x3. C surgery note. Some ischemic bowel. S/P Hemicolectomy. Fistula washed out. (2) Dehydration Current Visit: Yes Status: Resolved Plan to address problem: Patient well-hydrated. Fluid volumes stable ins and outs stable. (3) Acute Metabolic Encephalopathy with subsequent acute respiratory failure Patient extubated successfully downgraded to MedSurg. Advised nursing staff to continue monitoring mental status. (4) Metabolic acidosis Current Visit: Yes Status: Acute Plan to address problem: Has improved from 4.6-3. Post surgery. (5) ANEMIA -precipitous drop in hemoglobin stable (6) Thrombocytopenia Monitor closely. IF persistent decline will consult Enoch ARREOLA Telehematologist. In the mean time will request HIT and continue to hold off chemical prophylaxis. Will obtain PT/OT considering recent fall. (7) Severe protein calorie malnutrition cachexia (8) DVT prophylaxis Current Visit: Yes Status: Acute Plan to address problem: Anticoagulation being held secondary to surgery and risk of bleeding. History Interval history: Patient seen and examined, continues to show marked improvement. Reported some pain today on transfer from [facility] to bed following imaging study. Did have some formed stool on the ostomy bag. Hospitalist Physical - Physical exam Narrative exam: VITAL SIGNS: Reviewed. GENERAL: The patient appears normally developed, vital signs as documented. HEAD: No signs of head trauma. EYES: Pupils are equal. Extraocular motions intact. EARS: Hearing grossly intact. MOUTH: Oropharynx is normal. NECK: No adenopathy, no JVD. CHEST: Chest with diminished breath sounds bilaterally. No wheezes, rales, or rhonchi. CARDIAC: Regular rate and rhythm. S1 and S2, without murmurs, gallops, or rub s. VASCULAR: No Edema. Peripheral pulses normal and equal in all extremities. ABDOMEN: Soft, nondistended mildly tender hypoactive bowel sounds. Abdominal dressing intact and did not take down. Review of surgeons notes shows that both ostomies are viable. No significant output noted.. MUSCULOSKELETAL: Good range of motion of all major joints. Extremities without clubbing, cyanosis or edema. NEUROLOGIC EXAM: Alert and oriented x 3 but otherwise is still requiring assist, no focal sensory or strength deficits. Speech normal. Follows commands. PSYCHIATRIC: Mood normal. SKIN: detail exam as documented in skin assessment - Constitutional Vitals: Temp Pulse Resp BP Pulse Ox 99.2 F 104 H 18 112/69 97 01/07/20 07:34 01/07/20 07:34 01/07/20 07:34 01/07/20 07:34 01/07/20 07:34 General appearance: Present: other (Intubated no acute distress.) Results - Labs CBC & Chem 7: 01/06/20 07:40 01/06/20 07:40 Labs: Laboratory Last Values WBC 13.3 K/mm3 (4.5-11.0) H 01/06/20 07:40 RBC 2.92 M/mm3 (3.65-5.03) L 01/06/20 07:40 Hgb 8.6 gm/dl (11.8-15.2) L 01/06/20 07:40 Hct 24.7 % (35.5-45.6) L 01/06/20 07:40 MCV 85 fl (84-94) 01/06/20 07:40 MCH 29 pg (28-32) 01/06/20 07:40 MCHC 35 % (32-34) H 01/06/20 07:40 RDW 15.0 % (13.2-15.2) 01/06/20 07:40 Plt Count 222 K/mm3 (140-440) 01/06/20 07:40 Lymph % (Auto) 4.4 % (13.4-35.0) L 01/03/20 06:00 [place] % (Auto) Developmental Mathematics Instructor 01/05/20 09:17 Eos % (Auto) 0.2 % (0.0-4.3) 01/03/20 06:00 Baso % (Auto) 0.2 % (0.0-1.8) 01/03/20 06:00 Lymph # (Auto) 0.4 K/mm3 (1.2-5.4) L 01/03/20 06:00 [place] # (Auto) 2.8 K/mm3 (0.0-0.8) H 01/03/20 06:00 Eos # (Auto) 0.0 K/mm3 (0.0-0.4) 01/03/20 06:00 Baso # (Auto) 0.0 K/mm3 (0.0-0.1) 01/03/20 06:00 Add Manual Diff Complete 01/05/20 09:17 Total Counted 100 01/05/20 09:17 Seg Neutrophils % 66.9 % (40.0-70.0) 01/03/20 06:00 Seg Neuts % (Manual) 97.0 % (40.0-70.0) H 01/05/20 09:17 Band Neutrophils % 0 % 01/05/20 09:17 Lymphocytes % (Manual) 0 % (13.4-35.0) L 01/05/20 09:17 Reactive Lymphs % (Man) 0 % 01/05/20 09:17 Monocytes % (Manual) 2.0 % (0.0-7.3) 01/05/20 09:17 Eosinophils % (Manual) 1.0 % (0.0-4.3) 01/05/20 09:17 Basophils % (Manual) 0 % (0.0-1.8) 01/05/20 09:17 Metamyelocytes % 0 % 01/05/20 09:17 Myelocytes % 0 % 01/05/20 09:17 Promyelocytes % 0 % 01/05/20 09:17 Blast Cells % 0 % 01/05/20 09:17 Nucleated RBC % Not Reportable 01/05/20 09:17 Seg Neutrophils # 6.5 K/mm3 (1.8-7.7) 01/03/20 06:00 Seg Neutrophils # Man 11.7 K/mm3 (1.8-7.7) H 01/05/20 09:17 Band Neutrophils # 0.0 K/mm3 01/05/20 09:17 Lymphocytes # (Manual) 0.0 K/mm3 (1.2-5.4) L 01/05/20 09:17 Abs React Lymphs (Man) 0.0 K/mm3 01/05/20 09:17 Monocytes # (Manual) 0.2 K/mm3 (0.0-0.8) 01/05/20 09:17 Eosinophils # (Manual) 0.1 K/mm3 (0.0-0.4) 01/05/20 09:17 Basophils # (Manual) 0.0 K/mm3 (0.0-0.1) 01/05/20 09:17 Metamyelocytes # 0.0 K/mm3 01/05/20 09:17 Myelocytes # 0.0 K/mm3 01/05/20 09:17 Promyelocytes # 0.0 K/mm3 01/05/20 09:17 Blast Cells # 0.0 K/mm3 01/05/20 09:17 WBC Morphology Not Reportable 01/05/20 09:17 Hypersegmented Neuts Not Reportable 01/05/20 09:17 Hyposegmented Neuts Not Reportable 01/05/20 09:17 Hypogranular Neuts Not Reportable 01/05/20 09:17 Smudge Cells Not Reportable 01/05/20 09:17 Toxic Granulation Not Reportable 01/05/20 09:17 Toxic Vacuolation Not Reportable 01/05/20 09:17 Dohle Bodies Not Reportable 01/05/20 09:17 Pelger-Huet Anomaly Not Reportable 01/05/20 09:17 Anuradha Rods Not Reportable 01/05/20 09:17 Platelet Estimate Consistent w auto 01/05/20 09:17 Clumped Platelets Not Reportable 01/05/20 09:17 Plt Clumps, EDTA Not Reportable 01/05/20 09:17 Large Platelets Not Reportable 01/05/20 09:17 Giant Platelets Not Reportable 01/05/20 09:17 Platelet Satelliting Not Reportable 01/05/20 09:17 Plt Morphology Comment Not Reportable 01/05/20 09:17 RBC Morphology Not Reportable 01/05/20 09:17 Dimorphic RBCs Not Reportable 01/05/20 09:17 Polychromasia Not Reportable 01/05/20 09:17 Hypochromasia Not Reportable 01/05/20 09:17 Poikilocytosis Not Reportable 01/05/20 09:17 Anisocytosis Few 01/05/20 09:17 Microcytosis Not Reportable 01/05/20 09:17 Macrocytosis Not Reportable 01/05/20 09:17 Spherocytes Not Reportable 01/05/20 09:17 Pappenheimer Bodies Not Reportable 01/05/20 09:17 Sickle Cells Not Reportable 01/05/20 09:17 Target Cells 1+ 01/05/20 09:17 Tear Drop Cells Not Reportable 01/05/20 09:17 Ovalocytes Not Reportable 01/05/20 09:17 Helmet Cells Not Reportable 01/05/20 09:17 Aleman-Lenox Bodies Not Reportable 01/05/20 09:17 [place] Rings Not Reportable 01/05/20 09:17 Noble Cells Not Reportable 01/05/20 09:17 Bite Cells Not Reportable 01/05/20 09:17 Crenated Cell Not Reportable 01/05/20 09:17 Elliptocytes Not Reportable 01/05/20 09:17 Acanthocytes (Spur) Not Reportable 01/05/20 09:17 Rouleaux Not Reportable 01/05/20 09:17 Hemoglobin C Crystals Not Reportable 01/05/20 09:17 Schistocytes Not Reportable 01/05/20 09:17 Malaria parasites Not Reportable 01/05/20 09:17 Christ Bodies Not Reportable 01/05/20 09:17 Hem Pathologist Commnt No 01/05/20 09:17 PT 27.6 Sec. (12.2-14.9) H 12/30/19 22:30 INR 2.53 (0.87-1.13) H 12/30/19 22:30 APTT 42.2 Sec. (24.2-36.6) H 12/30/19 22:30 ABG pH 7.456 pH Units (7.350-7.450) H 01/01/20 05:15 POC ABG pCO2 34.7 mmHg (32.0-48.0) 12/31/19 04:03 ABG pCO2 34.1 mm Hg 01/01/20 05:15 POC ABG pO2 95.1 mmHg (83-108) 12/31/19 04:03 ABG pO2 85.3 mm Hg (80.0-90.0) 01/01/20 05:15 POC ABG HCO3 20.2 12/31/19 04:03 ABG HCO3 23.5 mmol/L (20.0-26.0) 01/01/20 05:15 ABG O2 Saturation 97.1 % (95.0-99.0) 01/01/20 05:15 ABG O2 Content 9.4 (0.0-44) 01/01/20 05:15 POC ABG Base Excess -4.2 12/31/19 04:03 ABG Base Excess -0.3 mmol/L (-2.0-3.0) 01/01/20 05:15 ABG Hemoglobin 6.9 gm/dl (14.0-18.0) L 01/01/20 05:15 ABG Carboxyhemoglobin 1.4 % (0.0-5.0) 01/01/20 05:15 ABG Methemoglobin 0.7 % (0.0-1.5) 01/01/20 05:15 Oxyhemoglobin 95.0 % (95.0-99.0) 01/01/20 05:15 FiO2 35 % 01/01/20 05:15 Sodium 139 mmol/L (137-145) 01/06/20 07:40 Potassium 4.9 mmol/L (3.6-5.0) 01/06/20 07:40 Chloride 102.7 mmol/L (98-107) 01/06/20 07:40 Carbon Dioxide 25 mmol/L (22-30) 01/06/20 07:40 Anion Gap 16 mmol/L 01/06/20 07:40 BUN 20 mg/dL (9-20) 01/06/20 07:40 Creatinine 0.6 mg/dL (0.8-1.3) L 01/06/20 07:40 Estimated GFR > 60 ml/min 01/06/20 07:40 BUN/Creatinine Ratio 33 % 01/06/20 07:40 Glucose 124 mg/dL (75-100) H 01/06/20 07:40 POC Glucose 130 (70-105) H 01/07/20 06:40 Lactic Acid 1.00 mmol/L (0.7-2.0) 01/05/20 06:35 Calcium 7.8 mg/dL (8.4-10.2) L 01/06/20 07:40 Phosphorus 3.50 mg/dL (2.5-4.5) D 01/05/20 06:30 Magnesium 2.30 mg/dL (1.7-2.3) 01/05/20 Unknown Total Bilirubin 4.50 mg/dL (0.1-1.2) H 01/04/20 06:10 AST 97 units/L (5-40) H 01/04/20 06:10 ALT 52 units/L (7-56) 01/04/20 06:10 Alkaline Phosphatase 107 units/L (35-129) 01/04/20 06:10 Total Protein 4.1 g/dL (6.3-8.2) L 01/04/20 06:10 Albumin 1.8 g/dL (3.9-5) L 01/04/20 06:10 Albumin/Globulin Ratio 0.8 % 01/04/20 06:10 Triglycerides 243 mg/dL (2-149) H 01/03/20 04:00 Lipase 9 units/L (13-60) L 12/29/19 14:29 Urine Color Yellow (Yellow) 12/27/19 Unknown Urine Turbidity Clear (Clear) 12/27/19 Unknown Urine pH 5.0 (5.0-7.0) 12/27/19 Unknown Ur Specific [place] > 1.059 (1.003-1.030) H 12/27/19 Unknown Urine Protein 30 mg/dl mg/dL (Negative) 12/27/19 Unknown Urine Glucose (UA) Neg mg/dL (Negative) 12/27/19 Unknown Urine Ketones 20 mg/dL (Negative) 12/27/19 Unknown Urine Blood Mod (Negative) 12/27/19 Unknown Urine Nitrite Neg (Negative) 12/27/19 Unknown Urine Bilirubin Neg (Negative) 12/27/19 Unknown Urine Urobilinogen < 2.0 mg/dL (<2.0) 12/27/19 Unknown Ur Leukocyte Esterase Neg (Negative) 12/27/19 Unknown Urine WBC (Auto) 2.0 /HPF (0.0-6.0) 12/27/19 Unknown Urine RBC (Auto) 28.0 /HPF (0.0-6.0) 12/27/19 Unknown U Epithel Cells (Auto) < 1.0 /HPF (0-13.0) 12/27/19 Unknown Urine Mucus 3+ /HPF 12/27/19 Unknown Blood Type B POSITIVE 12/29/19 19:52 Antibody Screen Negative 12/29/19 19:52 Crossmatch See Detail 12/29/19 19:52 Azul/IV: Voiding Method Urinal IV Catheter Type [Left Forearm INT / Saline Lock ] IV Catheter Type [Left Hand] INT / Saline Lock IV Catheter Type [Left Wrist] Peripheral IV IV Catheter Type [Right Peripheral IV Forearm] IV Catheter Type [Right Upper PICC Line arm] IV Catheter Type [Right INT / Saline Lock Antecubital] Active Medications - Current Medications Current Medications: Generic Name Dose Route Start Last Admin Trade Name Freq PRN Reason Stop Dose Admin Acetaminophen 650 mg 12/27/19 23:14 01/04/20 10:25 Tylenol PO 650 mg Q4H PRN Administration Pain MILD(1-3)/Fever >100.5/LAZCANO Famotidine 20 mg 12/27/19 23:45 01/06/20 22:04 Pepcid IV 20 mg BID SUSAN Administration Hydromorphone HCl 0.5 mg 01/05/20 10:14 01/07/20 09:00 Dilaudid IV 0.5 mg Q4H PRN Administration Pain , Severe (7-10) Hydrophilic Ointment 1 applic 12/29/19 22:33 Vaseline Lip Therapy TP Q2HR PRN Dry Lips Levofloxacin/Dextrose 500 mg in 100 mls @ 100 mls/hr 01/02/20 10:00 01/06/20 10:22 Levaquin 500mg/100ml IV 01/07/20 09:59 100 mls/hr Q24HR SUSAN Administration Protocol Metronidazole 500 mg in 100 mls @ 100 mls/hr 01/02/20 14:00 01/07/20 06:12 Flagyl 500 Mg/100 Ml IV 01/07/20 13:59 100 mls/hr Q8HR SUSAN Administration Protocol Sodium Chloride 1,000 mls @ 42 mls/hr 01/04/20 22:45 01/06/20 20:15 Nacl 0.9% 1000 Ml IV 42 mls/hr DIRECT SUSAN Administration Amino Acids/Electrolytes/Dextrose 2,400 mls @ 100 mls/hr 01/06/20 20:00 01/06/20 20:54 Tpn Adult IV 01/07/20 19:59 100 mls/hr DAILY@1999 SUSAN Administration Protocol Multi-Ingred Cream/Lotion/Oil/Oint 1 applic 12/29/19 22:33 Artificial Tears Ophth Oint OU Q4HR PRN Dry Eye(s) Nicotine 21 mg 12/31/19 10:00 01/06/20 10:21 Habitrol TD 21 mg QDAY SUSAN Administration Ondansetron HCl 4 mg 12/27/19 23:14 01/02/20 21:44 Zofran IV 4 mg Q3H PRN Administration Nausea And Vomiting Sodium Chloride 10 ml 12/28/19 10:00 01/06/20 22:04 Sodium Chloride Flush Syringe 10 Ml IV 10 ml BID SUSAN Administration Sodium Chloride 10 ml 12/27/19 23:14 12/29/19 10:40 Sodium Chloride Flush Syringe 10 Ml IV 10 ml PRN PRN Administration LINE FLUSH Nutrition/Malnutrition Assess - Dietary Evaluation Nutrition/Malnutrition Findings: Nutrition Notes Start: 12/30/19 08:57 Freq: Status: Active Protocol: Document 01/06/20 10:25 LP (Rec: 01/06/20 10:32 LP [id number]) Nutrition Notes Initial or Follow up Reassessment Other Pertinent Diagnosis SBO s/p hemicolectomy, R nephrectomy, anemia Current Diet CPN at 100ml/hr Labs/Tests Reviewed Pertinent Medications Reviewed Height 5 ft 8 in Weight 62.6 kg [place] Body Weight (kg) 70.00 BMI 20.9 Weight change and time frame Wt change noted Weight Status Appropriate Subjective/Other Information CPN day 6. Pt continues on CPN . Pt platelets are WNL. Clear liquid diet possible Tuesday. Will need TPN manager long term care and will need to start cycling TPN Tuesday. Percent of energy/protein needs met: 81%/100% Burn Absent Trauma Absent GI Symptoms None Current % PO Negligible Minimum of two criteria No physical signs of malnutrition #1 Nutrition Diagnosis Inadequate oral intake Diagnosis Progress(for reassessment Continues documentation) Is patient on ventilator? No Is Patient Ambulatory and/or Out of Bed No REE-([facility]-confined to bed) 5480.648 Calculation Used for Recommendations [facility] Additional Notes Protein needs 78-94g (1.25-1. 5g/kg) Fluid needs 1ml/kcal Nutrition Intervention Change Diet Order: Continue CPN Nutrition Support: CPN at 100ml/hr: 48mEq K. MVI Osmolality: 1365 Kcal 1,590 Protein (gm) 100 Carbohydrates (gm) 350 Fat (gm) 0 Fluid (mL) 2,400 Fiber (gm) 0 Goal #1 CPN to meet nutrient needs as best possible Anticipated Discharge Needs: unable to determine at this time Follow-Up By: 01/07/20 Additional Comments Labs in AM: BMP, Mg, Phos
[2020-01-07] MEDS: NICOTINE 21 MG/24 HR PATCH TD SCH (10:15)
[2020-01-07] MEDS: FAMOTIDINE 20 MG/2 ML INJ IV SCH ×2 (10:15→21:04)
[2020-01-07 10:53] LABS: BUN/Creatinine Ratio 33; Blood Urea Nitrogen 20 mg/dL (9-20); Calcium 8.2 mg/dL (8.4-10.2); Hemolysis Index 12
[2020-01-07 14:19] LABS: Heparin-Induced Platelet Antib Negative (Negative); Unfractionated Heparin Negative (Negative)
[2020-01-07] MEDS ORDERED: TOTAL PARENTERAL NUTRITION 2,400 ML IV SCH (20:00)
[2020-01-07] MEDS ORDERED: FAT EMULSIONS 20% 250 ML IV SCH (20:00)
[2020-01-07] MEDS: SODIUM CHLORIDE 0.9% 1000 ML 1,000 ML IV SCH (21:05)
[2020-01-08] MEDS: HYDROmorphone 1 MG/1 ML INJ IV PRN ×6 (01:36→22:14)
--- NOTE | 2020-01-08 06:37 | Event Note ---
Date: 01/08/[address] drainage of abd fluid today, will send for bacterial cultures.
[2020-01-08] MEDS: ACETAMINOPHEN 325 MG TAB PO PRN (06:53)
[2020-01-08 07:50] LABS: Hematocrit 23.6 % (35.5-45.6); Hemoglobin 7.8 gm/dl (11.8-15.2); Mean Corpuscular HGB Conc 33 % (32-34); Mean Corpuscular Volume 103 fl (84-94); Platelet Count 443 K/mm3 (140-440); Red Cell Distribution Width 17.7 % (13.2-15.2)
[2020-01-08 07:57] LABS: Blood Urea Nitrogen 15 mg/dL (9-20); Calcium 6.8 mg/dL (8.4-10.2); Hemolysis Index 25
[2020-01-08 07:58] LABS: BUN/Creatinine Ratio 30
--- NOTE | 2020-01-08 08:49 | Event Note ---
Date: 01/08/20 I believe lytes this am were drawn near tpn line. will repeat since I suspect lab error.
[2020-01-08 09:02] LABS: Blood Urea Nitrogen 19 mg/dL (9-20); Hemolysis Index 5
[2020-01-08 09:03] LABS: BUN/Creatinine Ratio 32
[2020-01-08] MEDS: FAMOTIDINE 20 MG/2 ML INJ IV SCH ×2 (09:47→22:16)
[2020-01-08] MEDS: NICOTINE 21 MG/24 HR PATCH TD SCH (09:48)
[2020-01-08 10:23] LABS: Alanine Aminotransferase 44 units/L (7-56); Bilirubin,Direct 1.3 mg/dL (0-0.2)
--- NOTE | 2020-01-08 10:30 | Progress Note ---
Assessment and Plan Assessment and plan: Patient is a 39-year-old F Nepalese male with a past medical history of right- sided nephrectomy status post Wilms tumor and appendectomy both of which occurred in the late 80s who is presenting with abdominal pain. Patient states for the past 2 days he has had some abdominal distention in the right lower quadrant and crampy 10 out of 10 pain. He has had multiple episodes of nausea and vomiting. Denies fever chills cough cold or congestion. On December 30, [address] showed patient to have free air in colon. Surgical intervention was required. Patient had surgery had partial hemicolectomy during exploratory laparotomy was subsequently intubated and transferred to the intensive care unit. On December 31, 2019 patient returned to the OR for an additional surgery. After initial extubation. Patient was not follow commands agitated unable to really protect airways and therefore was reintubated. 01/02: s/p 2 UNITS OF FFP, Mild improvement in PLT, FOLLOW HIT. Monitor AM labs, Consult Dr Kendall if plt continues to drop. Low grade fever noted, will monitor, Room changed to better monitor risk of fall as patient still with some lethargy. ABG checked yesterday, did not reflect elevated CO2 01/03: Patient clinically stable showing some improvement. Continues on TPN. Continue to monitor for bowel movement. Still very lethargic. Platelets improving up to 61. Continue to await HIT results. Continue aggressive physical therapy. 01/04: Continue agressive Physical therapy, per surgery Continue NPO to allow ischemic bowel to resolve, hold chemical DVT prophylaxis till platelets greater than 100K, Continue TPN. serial labs, patient will need port for TPN at home, will not advance diet until bowel ischemia resolves which can probably be done Tuesday, that is adv to clears. Continue antibiotics, if fever increases repeat CT abd pelvis, not really indicated at this point. Need to wean sedation ( haldol etc), needs PT to help mobilize. Labs checked today platelet has improved anticipate port to be placed on Tuesday. Continue to hold heparin. SCDs placed 01/05: Continues to clinically improve. Discussed with surgeon today Only about 4FT small bowel left following surgery. Patient will need TPN for a long time. Anticipate port placement for tomorrow 01/06: Surgeon advancing diet to clear liquid today to see how the patient tolerates. Case management still working on health insurance application for the patient. Patient understands longer to recovery. Continue physical therapy to strengthen the patient as he may end up going home. Awaiting labs for this morning if white count continues to increase will obtain ID consultation to rule out any underlying infection. Blood is noted at this time on overview. Await repeat CT abdomen and pelvis with IV contrast. Port placement per surgeon when no evidence of systemic infection. Continue pain control. Thrombocytopenia has resolved if HIT result is negative will resume chemical prophylaxis. Plan of care discussed with the patient and nursing staff at bedside. 01/07. Diet advanced to clear liquid yesterday. CT abdomen and pelvis performed showed possible intraperitoneal fluid collection. CT guided drainage ordered today. WBC 12.9. Phosphorus level 12?. Will repeat CMP and phosphorus. Problems (1) Small bowel obstruction Current Visit: Yes Status: Acute Plan to address problem: Status post exploratory lap x3. C surgery note. Some ischemic bowel. S/P Hemicolectomy. Fistula washed out. CT abdomen and pelvis shows intraperitoneal fluid collection-plan for CT-guided drainage cultures today. Monitor vital signs and labs. Hold antibiotics for now until cultures are received ID evaluation pending results of above. (2) Dehydration Current Visit: Yes Status: Resolved Plan to address problem: Patient well-hydrated. Fluid volumes stable ins and outs stable. (3) Acute Metabolic Encephalopathy with subsequent acute respiratory failure Patient extubated successfully downgraded to MedSurg. Advised nursing staff to continue monitoring mental status. (4) Metabolic acidosis Current Visit: Yes Status: Acute Plan to address problem: Resolved (5) ANEMIA -precipitous drop in hemoglobin stable (6) Thrombocytopenia Monitor closely. IF persistent decline will consult Enoch ARREOLA Telehematologist. In the mean time will request HIT and continue to hold off chemical prophylaxis. Will obtain PT/OT considering recent fall. (7) Severe protein calorie malnutrition cachexia On tpn. Started on clears. (8) DVT prophylaxis Current Visit: Yes Status: Acute Plan to address problem: Anticoagulation being held secondary to surgery and risk of bleeding. History Interval history: Patient seen and examined at bedside this morning. He has no complaints this morning. Still on TPN. Surgery following. Remained afebrile overnight. WBC 12.9 this a.m. Hospitalist Physical - Constitutional Vitals: Temp Pulse Resp BP Pulse Ox 99.2 F 103 H 18 105/63 96 01/08/20 07:48 01/08/20 07:48 01/08/20 07:48 01/08/20 07:48 01/08/20 07:48 General appearance: Present: no acute distress - EENT Eyes: Present: PERRL - Neck Neck: Present: supple - Respiratory Respiratory effort: normal Respiratory: bilateral: CTA - Cardiovascular Rhythm: regular Heart Sounds: Present: S1 & S2 - Extremities Extremities: No edema - Abdominal General gastrointestinal: soft, other (Bilateral ostomy in place with a left groin liquid stool) - Neurologic Neurologic: CNII-XII intact Results - Labs CBC & Chem 7: 01/08/20 07:28 01/08/20 08:30 Labs: Laboratory Last Values WBC 12.9 K/mm3 (4.5-11.0) H 01/08/20 07:28 RBC 2.30 M/mm3 (3.65-5.03) L 01/08/20 07:28 Hgb 7.8 gm/dl (11.8-15.2) L 01/08/20 07:28 Hct 23.6 % (35.5-45.6) L 01/08/20 07:28 MCV 103 fl (84-94) H 01/08/20 07:28 MCH 34 pg (28-32) H 01/08/20 07:28 MCHC 33 % (32-34) 01/08/20 07:28 RDW 17.7 % (13.2-15.2) H 01/08/20 07:28 Plt Count 443 K/mm3 (140-440) H D 01/08/20 07:28 Lymph % (Auto) 4.4 % (13.4-35.0) L 01/03/20 06:00 [place] % (Auto) [employer] 01/05/20 09:17 Eos % (Auto) 0.2 % (0.0-4.3) 01/03/20 06:00 Baso % (Auto) 0.2 % (0.0-1.8) 01/03/20 06:00 Lymph # (Auto) 0.4 K/mm3 (1.2-5.4) L 01/03/20 06:00 [place] # (Auto) 2.8 K/mm3 (0.0-0.8) H 01/03/20 06:00 Eos # (Auto) 0.0 K/mm3 (0.0-0.4) 01/03/20 06:00 Baso # (Auto) 0.0 K/mm3 (0.0-0.1) 01/03/20 06:00 Add Manual Diff Complete 01/05/20 09:17 Total Counted 100 01/05/20 09:17 Seg Neutrophils % 66.9 % (40.0-70.0) 01/03/20 06:00 Seg Neuts % (Manual) 97.0 % (40.0-70.0) H 01/05/20 09:17 Band Neutrophils % 0 % 01/05/20 09:17 Lymphocytes % (Manual) 0 % (13.4-35.0) L 01/05/20 09:17 Reactive Lymphs % (Man) 0 % 01/05/20 09:17 Monocytes % (Manual) 2.0 % (0.0-7.3) 01/05/20 09:17 Eosinophils % (Manual) 1.0 % (0.0-4.3) 01/05/20 09:17 Basophils % (Manual) 0 % (0.0-1.8) 01/05/20 09:17 Metamyelocytes % 0 % 01/05/20 09:17 Myelocytes % 0 % 01/05/20 09:17 Promyelocytes % 0 % 01/05/20 09:17 Blast Cells % 0 % 01/05/20 09:17 Nucleated RBC % Not Reportable 01/05/20 09:17 Seg Neutrophils # 6.5 K/mm3 (1.8-7.7) 01/03/20 06:00 Seg Neutrophils # Man 11.7 K/mm3 (1.8-7.7) H 01/05/20 09:17 Band Neutrophils # 0.0 K/mm3 01/05/20 09:17 Lymphocytes # (Manual) 0.0 K/mm3 (1.2-5.4) L 01/05/20 09:17 Abs React Lymphs (Man) 0.0 K/mm3 01/05/20 09:17 Monocytes # (Manual) 0.2 K/mm3 (0.0-0.8) 01/05/20 09:17 Eosinophils # (Manual) 0.1 K/mm3 (0.0-0.4) 01/05/20 09:17 Basophils # (Manual) 0.0 K/mm3 (0.0-0.1) 01/05/20 09:17 Metamyelocytes # 0.0 K/mm3 01/05/20 09:17 Myelocytes # 0.0 K/mm3 01/05/20 09:17 Promyelocytes # 0.0 K/mm3 01/05/20 09:17 Blast Cells # 0.0 K/mm3 01/05/20 09:17 WBC Morphology Not Reportable 01/05/20 09:17 Hypersegmented Neuts Not Reportable 01/05/20 09:17 Hyposegmented Neuts Not Reportable 01/05/20 09:17 Hypogranular Neuts Not Reportable 01/05/20 09:17 Smudge Cells Not Reportable 01/05/20 09:17 Toxic Granulation Not Reportable 01/05/20 09:17 Toxic Vacuolation Not Reportable 01/05/20 09:17 Dohle Bodies Not Reportable 01/05/20 09:17 Pelger-Huet Anomaly Not Reportable 01/05/20 09:17 Anuradha Rods Not Reportable 01/05/20 09:17 Platelet Estimate Consistent w auto 01/05/20 09:17 Clumped Platelets Not Reportable 01/05/20 09:17 Plt Clumps, EDTA Not Reportable 01/05/20 09:17 Large Platelets Not Reportable 01/05/20 09:17 Giant Platelets Not Reportable 01/05/20 09:17 Platelet Satelliting Not Reportable 01/05/20 09:17 Plt Morphology Comment Not Reportable 01/05/20 09:17 RBC Morphology Not Reportable 01/05/20 09:17 Dimorphic RBCs Not Reportable 01/05/20 09:17 Polychromasia Not Reportable 01/05/20 09:17 Hypochromasia Not Reportable 01/05/20 09:17 Poikilocytosis Not Reportable 01/05/20 09:17 Anisocytosis Few 01/05/20 09:17 Microcytosis Not Reportable 01/05/20 09:17 Macrocytosis Not Reportable 01/05/20 09:17 Spherocytes Not Reportable 01/05/20 09:17 Pappenheimer Bodies Not Reportable 01/05/20 09:17 Sickle Cells Not Reportable 01/05/20 09:17 Target Cells 1+ 01/05/20 09:17 Tear Drop Cells Not Reportable 01/05/20 09:17 Ovalocytes Not Reportable 01/05/20 09:17 Helmet Cells Not Reportable 01/05/20 09:17 Aleman-Placedo Bodies Not Reportable 01/05/20 09:17 [place] Rings Not Reportable 01/05/20 09:17 Kaylie Cells Not Reportable 01/05/20 09:17 Bite Cells Not Reportable 01/05/20 09:17 Crenated Cell Not Reportable 01/05/20 09:17 Elliptocytes Not Reportable 01/05/20 09:17 Acanthocytes (Spur) Not Reportable 01/05/20 09:17 Rouleaux Not Reportable 01/05/20 09:17 Hemoglobin C Crystals Not Reportable 01/05/20 09:17 Schistocytes Not Reportable 01/05/20 09:17 Malaria parasites Not Reportable 01/05/20 09:17 Christ Bodies Not Reportable 01/05/20 09:17 Hem Pathologist Commnt No 01/05/20 09:17 PT 27.6 Sec. (12.2-14.9) H 12/30/19 22:30 INR 2.53 (0.87-1.13) H 12/30/19 22:30 APTT 42.2 Sec. (24.2-36.6) H 12/30/19 22:30 Heparin Anti-Xa, Unfract Negative (Negative) 01/03/20 11:08 ABG pH 7.456 pH Units (7.350-7.450) H 01/01/20 05:15 POC ABG pCO2 34.7 mmHg (32.0-48.0) 12/31/19 04:03 ABG pCO2 34.1 mm Hg 01/01/20 05:15 POC ABG pO2 95.1 mmHg (83-108) 12/31/19 04:03 ABG pO2 85.3 mm Hg (80.0-90.0) 01/01/20 05:15 POC ABG HCO3 20.2 12/31/19 04:03 ABG HCO3 23.5 mmol/L (20.0-26.0) 01/01/20 05:15 ABG O2 Saturation 97.1 % (95.0-99.0) 01/01/20 05:15 ABG O2 Content 9.4 (0.0-44) 01/01/20 05:15 POC ABG Base Excess -4.2 12/31/19 04:03 ABG Base Excess -0.3 mmol/L (-2.0-3.0) 01/01/20 05:15 ABG Hemoglobin 6.9 gm/dl (14.0-18.0) L 01/01/20 05:15 ABG Carboxyhemoglobin 1.4 % (0.0-5.0) 01/01/20 05:15 ABG Methemoglobin 0.7 % (0.0-1.5) 01/01/20 05:15 Oxyhemoglobin 95.0 % (95.0-99.0) 01/01/20 05:15 FiO2 35 % 01/01/20 05:15 Sodium 135 mmol/L (137-145) L D 01/08/20 08:30 Potassium 4.5 mmol/L (3.6-5.0) D 01/08/20 08:30 Chloride 98.1 mmol/L (98-107) 01/08/20 08:30 Carbon Dioxide 29 mmol/L (22-30) D 01/08/20 08:30 Anion Gap 12 mmol/L 01/08/20 08:30 BUN 19 mg/dL (9-20) 01/08/20 08:30 Creatinine 0.6 mg/dL (0.8-1.3) L 01/08/20 08:30 Estimated GFR > 60 ml/min 01/08/20 08:30 BUN/Creatinine Ratio 32 % 01/08/20 08:30 Glucose 106 mg/dL (75-100) H 01/08/20 08:30 POC Glucose 144 (70-105) H 01/08/20 06:38 Lactic Acid 1.00 mmol/L (0.7-2.0) 01/05/20 06:35 Calcium 8.0 mg/dL (8.4-10.2) L D 01/08/20 08:30 Phosphorus 3.90 mg/dL (2.5-4.5) D 01/08/20 08:30 Magnesium 2.30 mg/dL (1.7-2.3) 01/08/20 08:30 Total Bilirubin 2.30 mg/dL (0.1-1.2) H 01/08/20 08:30 Direct Bilirubin 1.3 mg/dL (0-0.2) H 01/08/20 08:30 Indirect Bilirubin 1.0 mg/dL 01/08/20 08:30 AST 42 units/L (5-40) H 01/08/20 08:30 ALT 44 units/L (7-56) 01/08/20 08:30 Alkaline Phosphatase 113 units/L (35-129) 01/08/20 08:30 Total Protein 5.4 g/dL (6.3-8.2) L D 01/08/20 08:30 Albumin 2.0 g/dL (3.9-5) L 01/08/20 08:30 Albumin/Globulin Ratio 0.6 % 01/08/20 08:30 Triglycerides 243 mg/dL (2-149) H 01/03/20 04:00 Lipase 9 units/L (13-60) L 12/29/19 14:29 Urine Color Yellow (Yellow) 12/27/19 Unknown Urine Turbidity Clear (Clear) 12/27/19 Unknown Urine pH 5.0 (5.0-7.0) 12/27/19 Unknown Ur Specific [place] > 1.059 (1.003-1.030) H 12/27/19 Unknown Urine Protein 30 mg/dl mg/dL (Negative) 12/27/19 Unknown Urine Glucose (UA) Neg mg/dL (Negative) 12/27/19 Unknown Urine Ketones 20 mg/dL (Negative) 12/27/19 Unknown Urine Blood Mod (Negative) 12/27/19 Unknown Urine Nitrite Neg (Negative) 12/27/19 Unknown Urine Bilirubin Neg (Negative) 12/27/19 Unknown Urine Urobilinogen < 2.0 mg/dL (<2.0) 12/27/19 Unknown Ur Leukocyte Esterase Neg (Negative) 12/27/19 Unknown Urine WBC (Auto) 2.0 /HPF (0.0-6.0) 12/27/19 Unknown Urine RBC (Auto) 28.0 /HPF (0.0-6.0) 12/27/19 Unknown U Epithel Cells (Auto) < 1.0 /HPF (0-13.0) 12/27/19 Unknown Urine Mucus 3+ /HPF 12/27/19 Unknown Heparin-induced Plt Ab Negative (Negative) 01/03/20 11:08 UF Heparin High Dose 4 % Release 01/03/20 11:08 SU UFH Low Dose 0.1 9 % Release 01/03/20 11:08 SU UFH Low Dose 0.5 4 % Release 01/03/20 11:08 Blood Type B POSITIVE 12/29/19 19:52 Antibody Screen Negative 12/29/19 19:52 Crossmatch See Detail 12/29/19 19:52 Azul/IV: Voiding Method Urinal IV Catheter Type [Left Forearm INT / Saline Lock ] IV Catheter Type [Left Hand] INT / Saline Lock IV Catheter Type [Left Wrist] Peripheral IV IV Catheter Type [Right Peripheral IV Forearm] IV Catheter Type [Right Upper PICC Line arm] IV Catheter Type [Right INT / Saline Lock Antecubital] Active Medications - Current Medications Current Medications: Generic Name Dose Route Start Last Admin Trade Name Freq PRN Reason Stop Dose Admin Acetaminophen 650 mg 12/27/19 23:14 01/08/20 06:53 Tylenol PO 650 mg Q4H PRN Administration Pain MILD(1-3)/Fever >100.5/LAZCANO Famotidine 20 mg 12/27/19 23:45 01/08/20 09:47 Pepcid IV 20 mg BID SUSAN Administration Hydromorphone HCl 0.5 mg 01/05/20 10:14 01/08/20 09:47 Dilaudid IV 0.5 mg Q4H PRN Administration Pain , Severe (7-10) Hydrophilic Ointment 1 applic 12/29/19 22:33 Vaseline Lip Therapy TP Q2HR PRN Dry Lips Sodium Chloride 1,000 mls @ 42 mls/hr 01/04/20 22:45 01/07/20 21:05 Nacl 0.9% 1000 Ml IV 42 mls/hr DIRECT SUSAN Administration Amino Acids/Electrolytes/Dextrose 2,400 mls @ 0 mls/hr 01/07/20 20:00 01/07/20 21:02 Tpn Adult IV 01/08/20 16:00 30 mls/hr DAILY@2000 SUSAN Administration Protocol As Directed Multi-Ingred Cream/Lotion/Oil/Oint 1 applic 12/29/19 22:33 Artificial Tears Ophth Oint OU Q4HR PRN Dry Eye(s) Nicotine 21 mg 12/31/19 10:00 01/08/20 09:48 Habitrol TD 21 mg QDAY SUSAN Administration Ondansetron HCl 4 mg 12/27/19 23:14 01/02/20 21:44 Zofran IV 4 mg Q3H PRN Administration Nausea And Vomiting Sodium Chloride 10 ml 12/28/19 10:00 01/08/20 09:48 Sodium Chloride Flush Syringe 10 Ml IV 10 ml BID SUSAN Administration Sodium Chloride 10 ml 12/27/19 23:14 12/29/19 10:40 Sodium Chloride Flush Syringe 10 Ml IV 10 ml PRN PRN Administration LINE FLUSH Nutrition/Malnutrition Assess - Dietary Evaluation Nutrition/Malnutrition Findings: Nutrition Notes Start: 12/30/19 08:57 Freq: Status: Active Protocol: Document 01/07/20 13:54 (Rec: 01/07/20 14:00 [id number]) Nutrition Notes Initial or Follow up Reassessment Other Pertinent Diagnosis SBO s/p hemicolectomy, R nephrectomy, anemia Current Diet CPN at 100ml/hr, Cl liq Labs/Tests Na 134 Cr 0.6 Pertinent Medications Reviewed Height 5 ft 8 in Weight 62.6 kg [place] Body Weight (kg) 70.00 BMI 20.9 Weight Status Appropriate Subjective/Other Information CPN day 7. Pt consumed 75% of clear liquid diet and reports trying to go slow. Pt reports feeling hungry and tolerating CPN and diet. Will start CPN cycling. Percent of energy/protein needs met: 100%/100% Burn Absent Trauma Absent GI Symptoms None Current % PO Negligible Minimum of two criteria No physical signs of malnutrition #1 Nutrition Diagnosis Inadequate oral intake Diagnosis Progress(for reassessment Continues documentation) Is patient on ventilator? No Is Patient Ambulatory and/or Out of Bed No REE-([facility]-confined to bed) [phone] Calculation Used for Recommendations [facility] Additional Notes Protein needs 78-94g (1.25-1. 5g/kg) Fluid needs 1ml/kcal Nutrition Intervention Change Diet Order: Continue CPN, Clear liquid Nutrition Support: CPN at 100 ml/hr. Kcal 2,260 Protein (gm) 100 Carbohydrates (gm) 400 Fat (gm) 50 Fluid (mL) 2,650 Fiber (gm) 0 Goal #1 CPN and cl liquid diet to meet nutrient needs as best possible Anticipated Discharge Needs: unable to determine at this time Follow-Up By: 01/08/20 Additional Comments Labs in AM: Mg CLIF, Guillermo
[2020-01-08 19:49] LABS: INR 1.14 (0.87-1.13)
[2020-01-08] MEDS ORDERED: TOTAL PARENTERAL NUTRITION 2,000 ML IV SCH (20:00)
[2020-01-08] MEDS: SODIUM CHLORIDE 0.9% 1000 ML 1,000 ML IV SCH (20:27)
[2020-01-09] MEDS: HYDROmorphone 1 MG/1 ML INJ IV PRN ×5 (02:15→19:59)
[2020-01-09] MEDS: ACETAMINOPHEN 325 MG TAB PO PRN (05:55)
[2020-01-09 06:52] LABS: Blood Urea Nitrogen 22 mg/dL (9-20); Calcium 7.7 mg/dL (8.4-10.2); Hemolysis Index 0
[2020-01-09 06:58] LABS: BUN/Creatinine Ratio 37
--- NOTE | 2020-01-09 07:17 | Event Note ---
Date: 01/09/20 VSS AF, coags repeated and OK, hopefully ultrasound paracentesis with fluid sent for bacterial cultures, also, need IR consult for port.
--- NOTE | 2020-01-09 07:30 | Event Note ---
Date: 01/09/20 HIT test is negative, platelets steadily above 100K, OK to resume sub q heparin after paracentesis.
--- NOTE | 2020-01-09 10:23 | Procedure Note ---
Date of procedure: 01/09/20 Pre-op diagnosis: ascites Post-op diagnosis: same Procedure: US paracentesis Findings: moderate ascites Anesthesia: local Surgeon: MARCO ROJAS Estimated blood loss: none Pathology: list (120cc) Specimen disposition: to lab Condition: stable Disposition: floor
--- NOTE | 2020-01-09 11:02 | Ultrasound Report ---
ULTRASOUND-GUIDED PARACENTESIS HISTORY: drain abd fluid and send for cultures. PROCEDURE: The risks (including but not limited to bleeding, infection, and bowel injury) and benefi ts were explained to the patient and informed consent was obtained. A time out procedure was perform ed. Ultrasound was used to evaluate the abdomen and locate the largest ascites fluid pocket. Please note that the ascitic fluid is complex with numerous fine internal septations. Once the skin was marked, t he procedure site was prepped and draped in the usual sterile fashion and lidocaine was used for loca l anesthesia. A skin cora was made and a 5 [place] centesis catheter was placed. The patient was mon itored closely throughout the procedure, and a total of 520 mL of yellow, slightly cloudy fluid was a spirated. Samples were sent to the lab for further evaluation per the primary clinicians orders. The patient tolerated the procedure well with no complications. IMPRESSION: Successful ultrasound-guided paracentesis as described. Signer Name: Chandan Prakash Jr, MD Signed: 01/09/2020 10:57 AM Workstation Name: [id number]
[2020-01-09] MEDS: FAMOTIDINE 20 MG/2 ML INJ IV SCH ×2 (11:08→22:14)
[2020-01-09] MEDS: NICOTINE 21 MG/24 HR PATCH TD SCH (11:30)
--- NOTE | 2020-01-09 11:31 | Progress Note ---
Assessment and Plan Assessment and plan: Patient is a 39-year-old F [place] male with a past medical history of right- sided nephrectomy status post Wilms tumor and appendectomy both of which occurred in the late 80s who is presenting with abdominal pain. Patient states for the past 2 days he has had some abdominal distention in the right lower quadrant and crampy 10 out of 10 pain. He has had multiple episodes of nausea and vomiting. Denies fever chills cough cold or congestion. On December 30, [address] showed patient to have free air in colon. Surgical intervention was required. Patient had surgery had partial hemicolectomy during exploratory laparotomy was subsequently intubated and transferred to the intensive care unit. On December 31, 2019 patient returned to the OR for an additional surgery. After initial extubation. Patient was not follow commands agitated unable to really protect airways and therefore was reintubated. 01/02: s/p 2 UNITS OF FFP, Mild improvement in PLT, FOLLOW HIT. Monitor AM labs, Consult Dr Kendall if plt continues to drop. Low grade fever noted, will monitor, Room changed to better monitor risk of fall as patient still with some lethargy. ABG checked yesterday, did not reflect elevated CO2 01/03: Patient clinically stable showing some improvement. Continues on TPN. Continue to monitor for bowel movement. Still very lethargic. Platelets improving up to 61. Continue to await HIT results. Continue aggressive physical therapy. 01/04: Continue agressive Physical therapy, per surgery Continue NPO to allow ischemic bowel to resolve, hold chemical DVT prophylaxis till platelets greater than 100K, Continue TPN. serial labs, patient will need port for TPN at home, will not advance diet until bowel ischemia resolves which can probably be done Tuesday, that is adv to clears. Continue antibiotics, if fever increases repeat CT abd pelvis, not really indicated at this point. Need to wean sedation ( haldol etc), needs PT to help mobilize. Labs checked today platelet has improved anticipate port to be placed on Tuesday. Continue to hold heparin. SCDs placed 01/05: Continues to clinically improve. Discussed with surgeon today Only about 4FT small bowel left following surgery. Patient will need TPN for a long time. Anticipate port placement for tomorrow 01/06: Surgeon advancing diet to clear liquid today to see how the patient tolerates. Case management still working on health insurance application for the patient. Patient understands longer to recovery. Continue physical therapy to strengthen the patient as he may end up going home. Awaiting labs for this morning if white count continues to increase will obtain ID consultation to rule out any underlying infection. Blood is noted at this time on overview. Await repeat CT abdomen and pelvis with IV contrast. Port placement per surgeon when no evidence of systemic infection. Continue pain control. Thrombocytopenia has resolved if HIT result is negative will resume chemical prophylaxis. Plan of care discussed with the patient and nursing staff at bedside. 01/07. Diet advanced to clear liquid yesterday. CT abdomen and pelvis performed showed possible intraperitoneal fluid collection. CT guided drainage ordered today. WBC 12.9. Phosphorus level 12?. Will repeat CMP and phosphorus. 01/08. Plan for CT-guided drainage with port placement. IR has been consulted for this. ID consulted for possible intra-abdominal infection. Patient started on IV antibiotics. Labs reviewed. He request for pain and antianxiety medications this morning. Problems (1) Small bowel obstruction Current Visit: Yes Status: Acute Plan to address problem: Status post exploratory lap x3. C surgery note. Some ischemic bowel. S/P Hemicolectomy. Fistula washed out. CT abdomen and pelvis shows intraperitoneal fluid collection. Plan for CT- guided paracentesis with port placement Monitor vital signs and labs. Zosyn to be started today after cultures received ID consulted for possible intra-abdominal infection (2) Dehydration Current Visit: Yes Status: Resolved Plan to address problem: Patient well-hydrated. Fluid volumes stable ins and outs stable. (3) Acute Metabolic Encephalopathy with subsequent acute respiratory failure Resolved (4) Metabolic acidosis Current Visit: Yes Status: Acute Plan to address problem: Resolved (5) ANEMIA -precipitous drop in hemoglobin stable (6) Thrombocytopenia Platelet count has improved. HIT antibody negative (7) Severe protein calorie malnutrition cachexia On tpn. Clear liquid diet for now As per surgery, will be going home with TPN temporarily (8) DVT prophylaxis Current Visit: Yes Status: Acute Plan to address problem: Lovenox 40 mg daily. Monitor for bleeding and thrombocytopenia History Interval history: Patient seen and examined at bedside this morning. very emotional this morning as he learned his grand ma . He will get paracentesis vs port placement. IR consulted for port placement. Temp 100.4F last night. ID consulted. Hospitalist Physical - Constitutional Vitals: Temp Pulse Resp BP Pulse Ox 99.6 F 84 17 121/73 96 01/09/20 07:36 01/09/20 07:34 01/09/20 07:36 01/09/20 07:36 01/09/20 07:34 General appearance: Present: no acute distress - EENT Eyes: Present: PERRL - Neck Neck: Present: supple - Respiratory Respiratory: bilateral: CTA - Cardiovascular Heart Sounds: Present: S1 & S2 - Abdominal General gastrointestinal: soft, tender, other (Ostomy bags with fecal matter) - Psychiatric Psychiatric: other (Tearful) - Neurologic Neurologic: CNII-XII intact - Allied Health Allied health notes reviewed: nursing Results - Labs CBC & Chem 7: 01/08/20 07:28 01/09/20 06:19 Labs: Laboratory Last Values WBC 12.9 K/mm3 (4.5-11.0) H 01/08/20 07:28 RBC 2.30 M/mm3 (3.65-5.03) L 01/08/20 07:28 Hgb 7.8 gm/dl (11.8-15.2) L 01/08/20 07:28 Hct 23.6 % (35.5-45.6) L 01/08/20 07:28 MCV 103 fl (84-94) H 01/08/20 07:28 MCH 34 pg (28-32) H 01/08/20 07:28 MCHC 33 % (32-34) 01/08/20 07:28 RDW 17.7 % (13.2-15.2) H 01/08/20 07:28 Plt Count 443 K/mm3 (140-440) H D 01/08/20 07:28 Lymph % (Auto) 4.4 % (13.4-35.0) L 01/03/20 06:00 [place] % (Auto) Auxiliary Equipment Tender 01/05/20 09:17 Eos % (Auto) 0.2 % (0.0-4.3) 01/03/20 06:00 Baso % (Auto) 0.2 % (0.0-1.8) 01/03/20 06:00 Lymph # (Auto) 0.4 K/mm3 (1.2-5.4) L 01/03/20 06:00 [place] # (Auto) 2.8 K/mm3 (0.0-0.8) H 01/03/20 06:00 Eos # (Auto) 0.0 K/mm3 (0.0-0.4) 01/03/20 06:00 Baso # (Auto) 0.0 K/mm3 (0.0-0.1) 01/03/20 06:00 Add Manual Diff Complete 01/05/20 09:17 Total Counted 100 01/05/20 09:17 Seg Neutrophils % 66.9 % (40.0-70.0) 01/03/20 06:00 Seg Neuts % (Manual) 97.0 % (40.0-70.0) H 01/05/20 09:17 Band Neutrophils % 0 % 01/05/20 09:17 Lymphocytes % (Manual) 0 % (13.4-35.0) L 01/05/20 09:17 Reactive Lymphs % (Man) 0 % 01/05/20 09:17 Monocytes % (Manual) 2.0 % (0.0-7.3) 01/05/20 09:17 Eosinophils % (Manual) 1.0 % (0.0-4.3) 01/05/20 09:17 Basophils % (Manual) 0 % (0.0-1.8) 01/05/20 09:17 Metamyelocytes % 0 % 01/05/20 09:17 Myelocytes % 0 % 01/05/20 09:17 Promyelocytes % 0 % 01/05/20 09:17 Blast Cells % 0 % 01/05/20 09:17 Nucleated RBC % Not Reportable 01/05/20 09:17 Seg Neutrophils # 6.5 K/mm3 (1.8-7.7) 01/03/20 06:00 Seg Neutrophils # Man 11.7 K/mm3 (1.8-7.7) H 01/05/20 09:17 Band Neutrophils # 0.0 K/mm3 01/05/20 09:17 Lymphocytes # (Manual) 0.0 K/mm3 (1.2-5.4) L 01/05/20 09:17 Abs React Lymphs (Man) 0.0 K/mm3 01/05/20 09:17 Monocytes # (Manual) 0.2 K/mm3 (0.0-0.8) 01/05/20 09:17 Eosinophils # (Manual) 0.1 K/mm3 (0.0-0.4) 01/05/20 09:17 Basophils # (Manual) 0.0 K/mm3 (0.0-0.1) 01/05/20 09:17 Metamyelocytes # 0.0 K/mm3 01/05/20 09:17 Myelocytes # 0.0 K/mm3 01/05/20 09:17 Promyelocytes # 0.0 K/mm3 01/05/20 09:17 Blast Cells # 0.0 K/mm3 01/05/20 09:17 WBC Morphology Not Reportable 01/05/20 09:17 Hypersegmented Neuts Not Reportable 01/05/20 09:17 Hyposegmented Neuts Not Reportable 01/05/20 09:17 Hypogranular Neuts Not Reportable 01/05/20 09:17 Smudge Cells Not Reportable 01/05/20 09:17 Toxic Granulation Not Reportable 01/05/20 09:17 Toxic Vacuolation Not Reportable 01/05/20 09:17 Dohle Bodies Not Reportable 01/05/20 09:17 Pelger-Huet Anomaly Not Reportable 01/05/20 09:17 Anuradha Rods Not Reportable 01/05/20 09:17 Platelet Estimate Consistent w auto 01/05/20 09:17 Clumped Platelets Not Reportable 01/05/20 09:17 Plt Clumps, EDTA Not Reportable 01/05/20 09:17 Large Platelets Not Reportable 01/05/20 09:17 Giant Platelets Not Reportable 01/05/20 09:17 Platelet Satelliting Not Reportable 01/05/20 09:17 Plt Morphology Comment Not Reportable 01/05/20 09:17 RBC Morphology Not Reportable 01/05/20 09:17 Dimorphic RBCs Not Reportable 01/05/20 09:17 Polychromasia Not Reportable 01/05/20 09:17 Hypochromasia Not Reportable 01/05/20 09:17 Poikilocytosis Not Reportable 01/05/20 09:17 Anisocytosis Few 01/05/20 09:17 Microcytosis Not Reportable 01/05/20 09:17 Macrocytosis Not Reportable 01/05/20 09:17 Spherocytes Not Reportable 01/05/20 09:17 Pappenheimer Bodies Not Reportable 01/05/20 09:17 Sickle Cells Not Reportable 01/05/20 09:17 Target Cells 1+ 01/05/20 09:17 Tear Drop Cells Not Reportable 01/05/20 09:17 Ovalocytes Not Reportable 01/05/20 09:17 Helmet Cells Not Reportable 01/05/20 09:17 [place] Bodies Not Reportable 01/05/20 09:17 [place] Rings Not Reportable 01/05/20 09:17 Kaylie Cells Not Reportable 01/05/20 09:17 Bite Cells Not Reportable 01/05/20 09:17 Crenated Cell Not Reportable 01/05/20 09:17 Elliptocytes Not Reportable 01/05/20 09:17 Acanthocytes (Spur) Not Reportable 01/05/20 09:17 Rouleaux Not Reportable 01/05/20 09:17 Hemoglobin C Crystals Not Reportable 01/05/20 09:17 Schistocytes Not Reportable 01/05/20 09:17 Malaria parasites Not Reportable 01/05/20 09:17 Christ Bodies Not Reportable 01/05/20 09:17 Hem Pathologist Commnt No 01/05/20 09:17 PT 14.8 Sec. (12.2-14.9) 01/08/20 19:18 INR 1.14 (0.87-1.13) H 01/08/20 19:18 APTT 42.2 Sec. (24.2-36.6) H 12/30/19 22:30 Heparin Anti-Xa, Unfract Negative (Negative) 01/03/20 11:08 ABG pH 7.456 pH Units (7.350-7.450) H 01/01/20 05:15 POC ABG pCO2 34.7 mmHg (32.0-48.0) 12/31/19 04:03 ABG pCO2 34.1 mm Hg 01/01/20 05:15 POC ABG pO2 95.1 mmHg (83-108) 12/31/19 04:03 ABG pO2 85.3 mm Hg (80.0-90.0) 01/01/20 05:15 POC ABG HCO3 20.2 12/31/19 04:03 ABG HCO3 23.5 mmol/L (20.0-26.0) 01/01/20 05:15 ABG O2 Saturation 97.1 % (95.0-99.0) 01/01/20 05:15 ABG O2 Content 9.4 (0.0-44) 01/01/20 05:15 POC ABG Base Excess -4.2 12/31/19 04:03 ABG Base Excess -0.3 mmol/L (-2.0-3.0) 01/01/20 05:15 ABG Hemoglobin 6.9 gm/dl (14.0-18.0) L 01/01/20 05:15 ABG Carboxyhemoglobin 1.4 % (0.0-5.0) 01/01/20 05:15 ABG Methemoglobin 0.7 % (0.0-1.5) 01/01/20 05:15 Oxyhemoglobin 95.0 % (95.0-99.0) 01/01/20 05:15 FiO2 35 % 01/01/20 05:15 Sodium 137 mmol/L (137-145) 01/09/20 06:19 Potassium 4.5 mmol/L (3.6-5.0) 01/09/20 06:19 Chloride 98.2 mmol/L (98-107) 01/09/20 06:19 Carbon Dioxide 26 mmol/L (22-30) 01/09/20 06:19 Anion Gap 17 mmol/L 01/09/20 06:19 BUN 22 mg/dL (9-20) H 01/09/20 06:19 Creatinine 0.6 mg/dL (0.8-1.3) L 01/09/20 06:19 Estimated GFR > 60 ml/min 01/09/20 06:19 BUN/Creatinine Ratio 37 % 01/09/20 06:19 Glucose 86 mg/dL (75-100) 01/09/20 06:19 POC Glucose 147 (70-105) H 01/09/20 05:20 Lactic Acid 1.00 mmol/L (0.7-2.0) 01/05/20 06:35 Calcium 7.7 mg/dL (8.4-10.2) L 01/09/20 06:19 Phosphorus 3.50 mg/dL (2.5-4.5) 01/09/20 06:19 Magnesium 2.10 mg/dL (1.7-2.3) 01/09/20 06:19 Total Bilirubin 2.30 mg/dL (0.1-1.2) H 01/08/20 08:30 Direct Bilirubin 1.3 mg/dL (0-0.2) H 01/08/20 08:30 Indirect Bilirubin 1.0 mg/dL 01/08/20 08:30 AST 42 units/L (5-40) H 01/08/20 08:30 ALT 44 units/L (7-56) 01/08/20 08:30 Alkaline Phosphatase 113 units/L (35-129) 01/08/20 08:30 Total Protein 5.4 g/dL (6.3-8.2) L D 01/08/20 08:30 Albumin 2.0 g/dL (3.9-5) L 01/08/20 08:30 Albumin/Globulin Ratio 0.6 % 01/08/20 08:30 Triglycerides 243 mg/dL (2-149) H 01/03/20 04:00 Lipase 9 units/L (13-60) L 12/29/19 14:29 Serotonin Release Assay See scanned result 01/03/20 11:08 Urine Color Yellow (Yellow) 12/27/19 Unknown Urine Turbidity Clear (Clear) 12/27/19 Unknown Urine pH 5.0 (5.0-7.0) 12/27/19 Unknown Ur Specific [place] > 1.059 (1.003-1.030) H 12/27/19 Unknown Urine Protein 30 mg/dl mg/dL (Negative) 12/27/19 Unknown Urine Glucose (UA) Neg mg/dL (Negative) 12/27/19 Unknown Urine Ketones 20 mg/dL (Negative) 12/27/19 Unknown Urine Blood Mod (Negative) 12/27/19 Unknown Urine Nitrite Neg (Negative) 12/27/19 Unknown Urine Bilirubin Neg (Negative) 12/27/19 Unknown Urine Urobilinogen < 2.0 mg/dL (<2.0) 12/27/19 Unknown Ur Leukocyte Esterase Neg (Negative) 12/27/19 Unknown Urine WBC (Auto) 2.0 /HPF (0.0-6.0) 12/27/19 Unknown Urine RBC (Auto) 28.0 /HPF (0.0-6.0) 12/27/19 Unknown U Epithel Cells (Auto) < 1.0 /HPF (0-13.0) 12/27/19 Unknown Urine Mucus 3+ /HPF 12/27/19 Unknown Heparin-induced Plt Ab Negative (Negative) 01/03/20 11:08 UF Heparin High Dose 4 % Release 01/03/20 11:08 SU UFH Low Dose 0.1 9 % Release 01/03/20 11:08 SU UFH Low Dose 0.5 4 % Release 01/03/20 11:08 Blood Type B POSITIVE 12/29/19 19:52 Antibody Screen Negative 12/29/19 19:52 Crossmatch See Detail 12/29/19 19:52 Microbiology: Microbiology 01/09/20 06:19 Peripheral/Venous Blood Culture - Preliminary Culture in Progress 01/09/20 06:25 Peripheral/Venous Blood Culture - Preliminary Culture in Progress Azul/IV: Voiding Method Urinal IV Catheter Type [Left Forearm INT / Saline Lock ] IV Catheter Type [Left Hand] INT / Saline Lock IV Catheter Type [Left Wrist] Peripheral IV IV Catheter Type [Right Peripheral IV Forearm] IV Catheter Type [Right Upper PICC Line arm] IV Catheter Type [Right INT / Saline Lock Antecubital] Active Medications - Current Medications Current Medications: Generic Name Dose Route Start Last Admin Trade Name Freq PRN Reason Stop Dose Admin Acetaminophen 650 mg 12/27/19 23:14 01/09/20 05:55 Tylenol PO 650 mg Q4H PRN Administration Pain MILD(1-3)/Fever >100.5/LAZCANO Famotidine 20 mg 12/27/19 23:45 01/08/20 22:16 Pepcid IV 20 mg BID SUSAN Administration Hydromorphone HCl 0.5 mg 01/05/20 10:14 01/09/20 05:56 Dilaudid IV 0.5 mg Q4H PRN Administration Pain , Severe (7-10) Hydrophilic Ointment 1 applic 12/29/19 22:33 Vaseline Lip Therapy TP Q2HR PRN Dry Lips Sodium Chloride 1,000 mls @ 42 mls/hr 01/04/20 22:45 01/08/20 20:27 Nacl 0.9% 1000 Ml IV 42 mls/hr DIRECT SUSAN Administration Amino Acids/Electrolytes/Dextrose 2,000 mls @ 0 mls/hr 01/08/20 20:00 01/08/20 20:08 Tpn Adult IV 01/09/20 12:01 135 mls/hr DAILY@1999 SUSAN Administration Protocol As Directed Amino Acids/Electrolytes/Dextrose 2,000 mls @ 0 mls/hr 01/09/20 20:00 Tpn Adult IV 01/10/20 19:59 DAILY@1999 [facility] Protocol As Directed Fat Emulsion Intravenous 250 mls @ 21 mls/hr 01/09/20 20:00 Intralipid 20% IV 01/10/20 08:00 DAILY@1999 [facility] Multi-Ingred Cream/Lotion/Oil/Oint 1 applic 12/29/19 22:33 Artificial Tears Ophth Oint OU Q4HR PRN Dry Eye(s) Nicotine 21 mg 12/31/19 10:00 01/08/20 09:48 Habitrol TD 21 mg QDAY SUSAN Administration Ondansetron HCl 4 mg 12/27/19 23:14 01/02/20 21:44 Zofran IV 4 mg Q3H PRN Administration Nausea And Vomiting Sodium Chloride 10 ml 12/28/19 10:00 01/08/20 22:15 Sodium Chloride Flush Syringe 10 Ml IV 10 ml BID SUSAN Administration Sodium Chloride 10 ml 12/27/19 23:14 12/29/19 10:40 Sodium Chloride Flush Syringe 10 Ml IV 10 ml PRN PRN Administration LINE FLUSH Nutrition/Malnutrition Assess - Dietary Evaluation Nutrition/Malnutrition Findings: Nutrition Notes Start: 12/30/19 08:57 Freq: Status: Active Protocol: Document 01/08/20 12:34 (Rec: 01/08/20 12:56 [id number]) Nutrition Notes Initial or Follow up Reassessment Current Diagnosis Malnutrition Other Pertinent Diagnosis SBO s/p hemicolectomy, R nephrectomy, anemia Current Diet Cyclic CPN at 30/130/30ml/hr, Cl liq Labs/Tests Na 135 Cr 0.6 Pertinent Medications NS at 42 ml/hr Height 5 ft 8 in Weight 62.6 kg [place] Body Weight (kg) 70.00 BMI 20.9 Weight Status Appropriate Subjective/Other Information CPN day 8. Pt cycling for 16hr . Pt consumed 25% of clear liquids due feeling like it is coming out quickly. 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 No Is Patient Ambulatory and/or Out of Bed No REE-([facility]-confined to bed) 3967.666 Calculation Used for Recommendations [facility] Additional Notes Protein needs 78-94g (1.25-1. 5g/kg) Fluid needs 1ml/kcal Nutrition Intervention Change Diet Order: Continue CPN, Clear liquid Nutrition Support: 16 hr cycle CPN at 55/135/55ml /hr. Na 125 mEq, Mg 8 mEq, MVI. Osmolality: 1686 Kcal 1,760 Protein (gm) 100 Carbohydrates (gm) 400 Fat (gm) 0 Fluid (mL) 2,000 Fiber (gm) 0 Goal #1 CPN and cl liquid diet to meet nutrient needs as best possible Goal #2 Weight gain/maintenance Anticipated Discharge Needs: unable to determine at this time Follow-Up By: 01/09/20 Additional Comments Labs in AM: BMP, Mg, Phos
[2020-01-09] MEDS ORDERED: PIPERACILLIN/TAZOBACTAM 3.375 3.375 GM/50 ML BAG IV SCH (14:00)
[2020-01-09] MEDS: ALPRAZolam 0.5 MG TAB PO PRN (14:54)
--- NOTE | 2020-01-09 15:00 | Consultation ---
History of Present Illness - Reason for Consult Consult date: 01/09/20 Intra-abdominal infection Requesting physician: LOUIS DEJESUS - History of Present Illness The patient is a 39-year-old male with remote history of Wilms tumor requiring right-sided nephrectomy and appendectomy in the was admitted to the hospital with abdominal pain. CT scan showed SBO for which general surgery was consulted, follow-up CT showed market worsening and concern for free perforation, patient underwent exploratory laparotomy and partial hemicolectomy, noted to have extensive radiation changes throughout, went back to the OR on 12/30/2019 had resection of ischemic small intestine/mid jejunum, returned to the OR on 12/31/2019, proximal jejunum converted to an jejunostomy, mid jejunum was converted to a mucous fistula. Patient was initially in ICU, on the ventilator. Dominant CT scan on 01/08/2020 showed possible intraperitoneal fluid collection, IR guided drainage was ordered which was done on 01/09/2020. Infectious diseases was consulted for antibiotic recommendations. Review of Systems: General: low grade fever HEENT: no new visual disturbance Respiratory: No cough, sputum, hemoptysis or shortness of breath Cardiovascular: No chest pain, syncope Gastrointestinal: No nausea, vomiting or diarrhea Genitourinary: No dysuria or hematuria Musculoskeletal: No new or worsening neck pain or back pain Neurologic: No headaches, seizures Hematologic: No easy bruising or bleeding Endocrine: No night sweats or acute weight loss Skin: negative for rash, jaundice Psychiatric: No suicidal or homicidal ideation Past History Past Medical History: other (Wilms tumor s/p nephrectomry and radiation) Past Surgical History: Other (hx of right nephrectomy and adjunctive therapy) Social history: no significant social history Family history: no significant family history Medications and Allergies Allergies Allergy/AdvReac Type Severity Reaction Status Date / Time No Known Allergies Allergy Unverified 12/27/19 11:57 Home Medications Medication Instructions Recorded Confirmed Last Taken Type No Known Home Medications [No 01/09/20 01/09/20 Unknown History Reported Home Medications] Active Meds: Active Medications Acetaminophen (Tylenol) 650 mg PO Q4H PRN PRN Reason: Pain MILD(1-3)/Fever >100.5/LAZCANO Last Admin: 01/09/20 05:55 Dose: 650 mg Documented by: Alprazolam (Xanax) 0.5 mg PO Q8H PRN PRN Reason: Anxiety Last Admin: 01/09/20 14:54 Dose: 0.5 mg Documented by: Enoxaparin Sodium (Enoxaparin) 40 mg SUB-Q QDAY@2200 [facility]; Protocol Famotidine (Pepcid) 20 mg IV BID [facility] Last Admin: 01/09/20 11:08 Dose: 20 mg Documented by: Hydromorphone HCl (Dilaudid) 0.5 mg IV Q4H PRN PRN Reason: Pain , Severe (7-10) Last Admin: 01/09/20 14:55 Dose: 0.5 mg Documented by: Hydrophilic Ointment (Vaseline Lip Therapy) 1 applic TP Q2HR PRN PRN Reason: Dry Lips Sodium Chloride (Nacl 0.9% 1000 Ml) 1,000 mls @ 42 mls/hr IV DIRECT [facility] Last Admin: 01/08/20 20:27 Dose: 42 mls/hr Documented by: Amino Acids/Electrolytes/Dextrose (Tpn Adult) 2,000 mls @ 0 mls/hr IV DAILY@1999 [facility]; Protocol Stop: 01/10/20 19:59 Fat Emulsion Intravenous (Intralipid 20%) 250 mls @ 21 mls/hr IV DAILY@1999 [facility] Stop: 01/10/20 08:00 Piperacillin Sod/Tazobactam Sod (Zosyn/Ns 3.375gm/50ml) 3.375 gm in 50 mls @ 100 mls/hr IV Q8H [facility]; Protocol Last Admin: 01/09/20 14:05 Dose: 100 mls/hr Documented by: Multi-Ingred Cream/Lotion/Oil/Oint (Artificial Tears Ophth Oint) 1 applic OU Q4HR PRN PRN Reason: Dry Eye(s) Nicotine (Habitrol) 21 mg TD QDAY [facility] Last Admin: 01/09/20 11:30 Dose: 21 mg Documented by: Ondansetron HCl (Zofran) 4 mg IV Q3H PRN PRN Reason: Nausea And Vomiting Last Admin: 01/02/20 21:44 Dose: 4 mg Documented by: Sodium Chloride (Sodium Chloride Flush Syringe 10 Ml) 10 ml IV BID [facility] Last Admin: 01/09/20 14:55 Dose: 10 ml Documented by: Sodium Chloride (Sodium Chloride Flush Syringe 10 Ml) 10 ml IV PRN PRN PRN Reason: LINE FLUSH Last Admin: 12/29/19 10:40 Dose: 10 ml Documented by: Physical Examination - Physical Exam Narrative exam: Physical Exam: Constitutional: Alert, cooperative. No acute distress Head, Ears, Nose: Normocephalic, atraumatic. External ears, nose normal Eyes: Conjunctivae/corneas clear. No icterus. No ptosis. Neck: Supple, no meningeal signs Oral: dentition fair, no thrush Cardiovascular: S1, S2 normal. Respiratory: Good air entry, clear to auscultation bilaterally GI: Mucous fistula with colostomy bag, colostomy with biliary drainage, Musculoskeletal: No pedal edema, no cyanosis. Skin: No rash or abscess Hem/Lymphatic: No palpable cervical or supraclavicular nodes. No lymphangitis Psych: Mood ok. Affect normal Neurological: Awake, alert, oriented. No gross abnormality - Constitutional Vitals: Vital Signs Temp Pulse Resp BP Pulse Ox 99.7 F H 122 H 18 124/74 97 01/09/20 10:59 01/09/20 10:59 01/09/20 10:59 01/09/20 10:59 01/09/20 10:59 Temperature -Last 24 Hours Temperature 99.7 F Temperature 99.6 F Temperature 100.6 F Temperature 100.0 F Temperature 99.5 F Temperature 99.5 F Results - Labs CBC & Chem 7: 01/08/20 07:28 01/09/20 06:19 Labs: Abnormal lab results 01/08/20 01/08/20 01/08/20 Range/Units 16:57 19:18 23:07 INR 1.14 H (0.87-1.13) BUN (9-20) mg/dL Creatinine (0.8-1.3) mg/dL POC Glucose 110 H 175 H (70-105) Calcium (8.4-10.2) mg/dL 01/09/20 01/09/20 01/09/20 Range/Units 05:20 06:19 12:04 INR (0.87-1.13) BUN 22 H (9-20) mg/dL Creatinine 0.6 L (0.8-1.3) mg/dL POC Glucose 147 H 122 H (70-105) Calcium 7.7 L (8.4-10.2) mg/dL - Imaging and Cardiology Chest x-ray: report reviewed, image reviewed (12/31 with fluid overload) Assessment and Plan Cultures: 12/29/2019 sputum culture: Usual respiratory eric 12/29/2019 surgical culture/peritoneal fluid: E. coli resistant to ampicillin, Unasyn and Bactrim, susceptible to all cephalosporins and fluoroquinolones. 01/09/2020 blood culture: In process 01/09/2020 peritoneal fluid IR culture: In process A/P: 39-year-old male with remote history of Wilms tumor requiring right-sided nephrectomy and appendectomy in the was admitted to the hospital with abdominal pain. 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 CT with ascites/fluid collection, IR aspirated on 01/09/2020. #Sepsis, secondary to above Recs: Zosyn discontinued Ceftriaxone and Flagyl ordered Considering prolonged hospital stay, multiple abdominal surgeries and broad- spectrum antibiotic exposure, will also add fluconazole if blood cultures 01/09/2020 negative at 48 hours, OK to proceed with a MINH Anderson MD, FACP [facility] O: [phone] F: [phone]
[2020-01-09] MEDS: metroNIDAZOLE/NS 500 MG/100 ML 500 MG/100 ML BAG IV SCH ×2 (15:43→23:02)
[2020-01-09] MEDS: cefTRIAXone/NS 2 GM/100 ML 2 GM/100 ML BAG IV SCH (16:55)
[2020-01-09 17:51] LABS: Total Cells Counted 100 /mm3
--- NOTE | 2020-01-09 18:47 | Consultation ---
History of Present Illness - Reason for Consult Consult date: 01/09/20 Aowuts-[facility]-Zmey Placement Requesting physician: LOUIS DEJESUS - History of Present Illness The patient is a 39-year-old male with a history of a Wilms tumor that was resected in the 80s with a right nephrectomy. He also underwent radiation and chemotherapy post resection. He presented to the emergency department with complaints of abdominal pain associated with nausea and vomiting. He had a CT scan that revealed a small bowel obstruction without an obvious transition point. He eventually underwent an exploratory laparotomy with lysis of adhesions and required a second look there resulted in resection of ischemic small bowel. Post procedure he has done fairly well and is required dressing changes and antibiotics for intra-abdominal fluid collections that were drained percutaneously. He has been progressed to a clear liquid diet however it has been recommended that he be maintained on TPN for nutrition to assist with healing. He has no complaints at this time. Past History Past Medical History: other (Wilms tumor s/p nephrectomry and radiation) Past Surgical History: Other (hx of right nephrectomy and adjunctive therapy) Social history: no significant social history Family history: no significant family history Medications and Allergies Allergies Allergy/AdvReac Type Severity Reaction Status Date / Time No Known Allergies Allergy Unverified 12/27/19 11:57 Home Medications Medication Instructions Recorded Confirmed Last Taken Type No Known Home Medications [No 01/09/20 01/09/20 Unknown History Reported Home Medications] Active Meds: Active Medications Acetaminophen (Tylenol) 650 mg PO Q4H PRN PRN Reason: Pain MILD(1-3)/Fever >100.5/[place]O Last Admin: 01/09/20 05:55 Dose: 650 mg Documented by: Alprazolam (Xanax) 0.5 mg PO Q8H PRN PRN Reason: Anxiety Last Admin: 01/09/20 14:54 Dose: 0.5 mg Documented by: Enoxaparin Sodium (Enoxaparin) 40 mg SUB-Q QDAY@2200 [facility]; Protocol Famotidine (Pepcid) 20 mg IV BID [facility] Last Admin: 01/09/20 11:08 Dose: 20 mg Documented by: Hydromorphone HCl (Dilaudid) 0.5 mg IV Q4H PRN PRN Reason: Pain , Severe (7-10) Last Admin: 01/09/20 14:55 Dose: 0.5 mg Documented by: Hydrophilic Ointment (Vaseline Lip Therapy) 1 applic TP Q2HR PRN PRN Reason: Dry Lips Sodium Chloride (Nacl 0.9% 1000 Ml) 1,000 mls @ 42 mls/hr IV DIRECT [facility] Last Admin: 01/08/20 20:27 Dose: 42 mls/hr Documented by: Amino Acids/Electrolytes/Dextrose (Tpn Adult) 2,000 mls @ 0 mls/hr IV MATT LY@1999 [facility]; Protocol Stop: 01/10/20 19:59 Fat Emulsion Intravenous (Intralipid 20%) 250 mls @ 21 mls/hr IV DAILY@1999 [facility] Stop: 01/10/20 08:00 Ceftriaxone Sodium (Rocephin/Ns 2 Gm/100 Ml) 2 gm in 100 mls @ 200 mls/hr IV Q24HR [facility]; Protocol Last Admin: 01/09/20 16:55 Dose: 200 mls/hr Documented by: Fluconazole (Diflucan) 200 mg in 100 mls @ 100 mls/hr IV Q24HR [facility]; Protocol Metronidazole (Flagyl 500 Mg/100 Ml) 500 mg in 100 mls @ 100 mls/hr IV Q8HR [facility]; Protocol Last Admin: 01/09/20 15:43 Dose: 100 mls/hr Documented by: Multi-Ingred Cream/Lotion/Oil/Oint (Artificial Tears Ophth Oint) 1 applic OU Q4HR PRN PRN Reason: Dry Eye(s) Nicotine (Habitrol) 21 mg TD QDAY [facility] Last Admin: 01/09/20 11:30 Dose: 21 mg Documented by: Ondansetron HCl (Zofran) 4 mg IV Q3H PRN PRN Reason: Nausea And Vomiting Last Admin: 01/02/20 21:44 Dose: 4 mg Documented by: Sodium Chloride (Sodium Chloride Flush Syringe 10 Ml) 10 ml IV BID [facility] Last Admin: 01/09/20 14:55 Dose: 10 ml Documented by: Sodium Chloride (Sodium Chloride Flush Syringe 10 Ml) 10 ml IV PRN PRN PRN Reason: LINE FLUSH Last Admin: 12/29/19 10:40 Dose: 10 ml Documented by: Review of Systems All systems: negative Exam - Constitutional Vitals: Temp Pulse Resp BP Pulse Ox 99.5 F 113 H 19 105/60 98 01/09/20 15:54 01/09/20 15:54 01/09/20 15:54 01/09/20 15:54 01/09/20 15:54 General appearance: Present: no acute distress - Neck Neck: Present: supple - Respiratory Respiratory effort: normal - Cardiovascular Rhythm: regular - Extremities Extremities: no ischemia, pulses intact, normal temperature - Abdominal General gastrointestinal: Present: other (Ileostomy appears healthy and viable with succus output and no evidence of infection) - Psychiatric Psychiatric: appropriate mood/affect Results - Labs CBC & Chem 7: 01/10/20 00:49 01/10/20 00:49 Labs: Abnormal lab results 01/08/20 01/08/20 01/09/20 Range/Units 19:18 23:07 05:20 INR 1.14 H (0.87-1.13) BUN (9-20) mg/dL Creatinine (0.8-1.3) mg/dL POC Glucose 175 H 147 H (70-105) Calcium (8.4-10.2) mg/dL Triglycerides (2-149) mg/dL 01/09/20 01/09/20 01/09/20 Range/Units 06:19 12:04 18:07 INR (0.87-1.13) BUN 22 H (9-20) mg/dL Creatinine 0.6 L (0.8-1.3) mg/dL POC Glucose 122 H 112 H (70-105) Calcium 7.7 L (8.4-10.2) mg/dL Triglycerides (2-149) mg/dL 01/09/20 Range/Units Unknown INR (0.87-1.13) BUN (9-20) mg/dL Creatinine (0.8-1.3) mg/dL POC Glucose (70-105) Calcium (8.4-10.2) mg/dL Triglycerides 184 H (2-149) mg/dL - Imaging and Cardiology Chest x-ray: image reviewed Assessment and Plan The patient is a 39-year-old male with a history of resection of a Wilms tumor and a right nephrectomy who presents with a small bowel obstruction status post resection of small bowel. He is in need of a port for TPN. He has been given the risk, benefits, and alternative procedures and consented to the procedure.
[2020-01-09] MEDS ORDERED: FAT EMULSIONS 20% 250 ML IV SCH (20:00)
[2020-01-09] MEDS ORDERED: TOTAL PARENTERAL NUTRITION 2,000 ML IV SCH (20:00)
[2020-01-09] MEDS: FLUCONAZOLE 200 MG 200 MG/100 ML BAG IV SCH (22:13)
[2020-01-09] MEDS: ENOXAPARIN 40 MG/0.4 ML INJ SUB-Q SCH (22:14)
[2020-01-10] MEDS: HYDROmorphone 1 MG/1 ML INJ IV PRN ×5 (00:01→20:14)
[2020-01-10] MEDS: ALPRAZolam 0.5 MG TAB PO PRN ×2 (00:52→21:46)
[2020-01-10] MEDS: SODIUM CHLORIDE 0.9% 1000 ML 1,000 ML IV SCH (00:56)
[2020-01-10 01:35] LABS: Alanine Aminotransferase 61 units/L (7-56); Albumin 2.6 g/dL (3.9-5); Blood Urea Nitrogen 24 mg/dL (9-20); Calcium 8.4 mg/dL (8.4-10.2); Hemolysis Index 0
[2020-01-10 01:36] LABS: Basophils # (Auto) 0.1 K/mm3 (0.0-0.1); Basophils % (Auto) 0.4 % (0.0-1.8); Eosinophils # (Auto) 0.1 K/mm3 (0.0-0.4); Eosinophils % (Auto) 0.6 % (0.0-4.3); Hematocrit 24.6 % (35.5-45.6); Hemoglobin 8.3 gm/dl (11.8-15.2); Lymphocytes # (Auto) 0.7 K/mm3 (1.2-5.4); Lymphocytes % (Auto) 3.9 % (13.4-35.0); Mean Corpuscular HGB Conc 34 % (32-34); Mean Corpuscular Volume 84 fl (84-94); Monocytes # (Auto) 1.2 K/mm3 (0.0-0.8); Platelet Count 900 K/mm3 (140-440); Red Blood Count 2.92 M/mm3 (3.65-5.03); Red Cell Distribution Width 14.9 % (13.2-15.2)
[2020-01-10 02:09] LABS: BUN/Creatinine Ratio 34
[2020-01-10] MEDS: metroNIDAZOLE/NS 500 MG/100 ML 500 MG/100 ML BAG IV SCH ×3 (05:02→21:46)
--- NOTE | 2020-01-10 05:59 | Progress Note ---
Assessment and Plan POD 01/13/12 VSS AF sinus tach at 106, s/p small bowel resection for gut, short gut syndrome, on TPN, platelets normalized/ now increasing, on Lovenox,(HIT negative) previous problems with thrombocytopinea/ resovled. s/p ultrasound paracentesis, WBC up . H and HCT stable, on TPN/ LFTs up a bit probably secondary to TPN, cultures of abd fluid negative so far. Difficulty in keeping ostomy bags in place. Being educated per [facility] nurse, Hopefully Port today for alf TPN, Very difficult case, will require alf TPN, ultimately will need referal to Transplant center to evaluate for possible small bowel transplant (Not done at [facility]), need help with qualifiying patient for Medicaid ,etc. I have little else to offer surgically at this point. I appreciate INF DZ input, and Dr. Barrientos help (Vascular). Subjective Date of service: 01/10/20 Patient Reports: Negative: other (c/o abd pain) Objective Vital Signs - 12hr 01/09/20 01/10/20 22:01 04:46 Temperature 98.2 F 98.6 F Pulse Rate 110 H 106 H Respiratory 18 20 Rate Blood Pressure 118/69 111/69 O2 Sat by Pulse 98 100 Oximetry - Labs 01/10/20 00:49 01/10/20 00:49 Diabetes panel 01/09/20 01/09/20 01/10/20 Range/Units 06:19 Unknown 00:49 Sodium 137 136 L (137-145) mmol/L Potassium 4.5 4.8 (3.6-5.0) mmol/L Chloride 98.2 96.5 L (98-107) mmol/L Carbon Dioxide 26 28 (22-30) mmol/L BUN 22 H 24 H (9-20) mg/dL Creatinine 0.6 L 0.7 L (0.8-1.3) mg/dL Glucose 86 102 H (75-100) mg/dL Calcium 7.7 L 8.4 (8.4-10.2) mg/dL AST 69 H (5-40) units/L ALT 61 H (7-56) units/L Alkaline Phosphatase 171 H (35-129) units/L Total Protein 6.6 D (6.3-8.2) g/dL Albumin 2.6 L (3.9-5) g/dL Triglycerides 184 H (2-149) mg/dL Calcium panel 01/09/20 01/10/20 Range/Units 06:19 00:49 Calcium 7.7 L 8.4 (8.4-10.2) mg/dL Phosphorus 3.50 (2.5-4.5) mg/dL Albumin 2.6 L (3.9-5) g/dL Pituitary panel 01/09/20 01/10/20 Range/Units 06:19 00:49 Sodium 137 136 L (137-145) mmol/L Potassium 4.5 4.8 (3.6-5.0) mmol/L Chloride 98.2 96.5 L (98-107) mmol/L Carbon Dioxide 26 28 (22-30) mmol/L BUN 22 H 24 H (9-20) mg/dL Creatinine 0.6 L 0.7 L (0.8-1.3) mg/dL Glucose 86 102 H (75-100) mg/dL Calcium 7.7 L 8.4 (8.4-10.2) mg/dL Adrenal panel 01/09/20 01/10/20 Range/Units 06:19 00:49 Sodium 137 136 L (137-145) mmol/L Potassium 4.5 4.8 (3.6-5.0) mmol/L Chloride 98.2 96.5 L (98-107) mmol/L Carbon Dioxide 26 28 (22-30) mmol/L BUN 22 H 24 H (9-20) mg/dL Creatinine 0.6 L 0.7 L (0.8-1.3) mg/dL Glucose 86 102 H (75-100) mg/dL Calcium 7.7 L 8.4 (8.4-10.2) mg/dL Total Bilirubin 2.10 H (0.1-1.2) mg/dL AST 69 H (5-40) units/L ALT 61 H (7-56) units/L Alkaline Phosphatase 171 H (35-129) units/L Total Protein 6.6 D (6.3-8.2) g/dL Albumin 2.6 L (3.9-5) g/dL
[2020-01-10] MEDS ORDERED: fentaNYL 100 MCG/2 ML INJ ONE (07:11)
[2020-01-10] MEDS ORDERED: MIDAZOLAM 2 MG/2 ML INJ ONE (07:11)
[2020-01-10] MEDS ORDERED: HEPARIN/NS 5000 UNIT/500ML 500 ML IR ONE (07:12)
[2020-01-10] MEDS ORDERED: HEPARIN 10,000 UNITS/10 ML VIAL ONE (07:12)
[2020-01-10] MEDS ORDERED: LIDOCAINE 1%/EPINEPHRINE 1:100,000 VIAL (20 ML) INFILTRATI ONE (07:12)
[2020-01-10] MEDS ORDERED: SODIUM CHLORIDE 0.9% 500 ML 500 ML ONE (07:13)
[2020-01-10] MEDS ORDERED: LIDOCAINE (2%) 20 MG/1 ML VIAL 20 ML MDV INFILTRATI ONE (07:50)
--- NOTE | 2020-01-10 08:43 | Post Operative Note ---
Date of procedure: 01/10/20 Pre-op diagnosis: History of Small Bowel Obstruction and Need For Home TPN Post-op diagnosis: same Procedure: 1. Ultrasound-Guided Access Right Internal Jugular Vein 2. Placement of Bard Ensogz-a-Ldrv with 8 Frisian Central Venous Catheter 3. Radiologic Supervision with Interpretation 4. Monitored Moderate Sedation (Total Anesthesia Time: 28 Minutes) Anesthesia: MAC, local Surgeon: IRINA MACIAS Estimated blood loss: minimal Pathology: none Condition: stable Disposition: floor
[2020-01-10] MEDS: FAMOTIDINE 20 MG/2 ML INJ IV SCH (09:53)
[2020-01-10] MEDS: cefTRIAXone/NS 2 GM/100 ML 2 GM/100 ML BAG IV SCH (09:54)
[2020-01-10] MEDS: NICOTINE 21 MG/24 HR PATCH TD SCH (10:01)
[2020-01-10] MEDS: FLUCONAZOLE 200 MG 200 MG/100 ML BAG IV SCH (10:35)
--- NOTE | 2020-01-10 13:50 | Operative Report ---
Operative Report Operative Report: Date of procedure: 01/10/2020 Pre-operative diagnosis: Need for TPN Post -operative diagnosis: Same Procedure: 1. Ultrasound-Guided Access Right Internal Jugular Vein 2. Placement of Bard Clguyw-d-Qfuh with 8 Bahraini Central Venous Catheter 3. Radiologic Supervision with Interpretation 4. Monitored Moderate Sedation (Total Anesthesia Time: 28 Minutes) Surgeon: Branden Barrientos M.D. Wind Tunnel Mechanic: None Anesthesia: Monitored Moderate Sedation Total Anesthesia Time: 28 Minutes EBL: Minimal Counts: Correct Complications: None Condition: Stable Findings: Successful placement of right internal jugular [id number]-Omzq with distal tip in the right atrium. Specimen: None Indication: The patient is a 39-year-old male with a history of Wilms tumor status post resection in the 80s who presented with a small bowel obstruction requiring an exploratory laparotomy with lysis of adhesions and resection of small bowel. He will need long-term TPN for nutrition and assistance with healing. He is in need of an [id number] placement. He has been given the risk, benefits, and alternative procedures and consented to the procedure. Descritption of Procedure: The patient was brought to the Activity Aid and laid in supine position. After a timeout was performed his right neck and chest were prepped and draped in normal sterile fashion. Ultrasound was used to identify the right internal jugular vein and confirm patency. Once patency was confirmed the overlying skin and soft tissue was anesthetized with lidocaine. An 11 blade was used to make a small stab incision and a 21-gauge micropuncture needle was used with ultrasound guidance into the right internal jugular vein. An 18-gauge micropuncture wire was then advanced to the needle into the central venous system under fluoroscopy. The needle was removed and a micropuncture sheath was placed by Seldinger technique. I then anesthetized the skin and soft tissue over the right chest wall for the pocket of the subcutaneous port. I also anesthetized the presumed tract for the catheter. I used a 10 blade to make a transverse incision on the chest wall and used Metzenbaum scissors to create an adequate pocket for the subcutaneous port. I then connected the 8 [place]raini catheter to the tunneler and tunneled from the subcutaneous pocket on the chest wall towards the entry site on the neck. I removed the dilator and wire on the micropuncture sheath and advanced a 0.035 J-wire into the central venous system under fluorosc opy. I removed the micropuncture sheath and then advanced the peel-away sheath into the central venous system under fluoroscopy. I advanced the 8 Bahraini catheter into position with the distal tip in the right atrium. I then cut the catheter to length and connected the catheter and connected to the subcutaneous port. I placed the subcutaneous port into the pocket and confirmed position with fluoroscopy. I accessed the subcutaneous port using a Alcazar needle which easily aspirated and flushed. I then primed the port with the appropriate amount of heparin. I then closed the skin incision in 2 layers using a 3-0 Vicryl in a running fashion in the deep dermal layer and a 4 Monocryl in running fashion the subcuticular and then dressed with Dermabond. The neck incision was closed in a single layer using a 4-0 Monocryl in interrupted fashion the subcuticular layer and then dressed with Dermabond. The final fluoroscopy demonstrated the catheter and subcutaneous port were in adequate position with the distal tip in the right atrium and no evidence of pneumothorax. The patient tolerated the procedure well. All sponge, needle, and instrument counts were correct. The patient was returned to the floor in stable condition.
--- NOTE | 2020-01-10 13:53 | Progress Note ---
Assessment and Plan Cultures: 12/29/2019 sputum culture: Usual respiratory eric 12/29/2019 surgical culture/peritoneal fluid: E. coli resistant to ampicillin, Unasyn and Bactrim, susceptible to all cephalosporins and fluoroquinolones. 01/09/2020 blood culture: In process 01/09/2020 peritoneal fluid IR culture: In process A/P: 39-year-old male with remote history of Wilms tumor requiring right-sided nephrectomy and appendectomy in the was admitted to the hospital with abdominal pain. 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 CT with ascites/fluid collection, IR aspirated on 01/09/2020. #Sepsis, secondary to above #Need for mcfp TPN: got PORT placed. Recs: continue IV Ceftriaxone, Flagyl and Fluconazole f/u peritoneal fluid cultures from 01/09/2020 Yamil Anderson MD, FACP [facility] ([facility]) O: [phone] F: [phone] Subjective Date of service: 01/10/20 Principal diagnosis: Abdominal pain small bowel obstruction Interval history: No new complaints. No fever. Got PORT placed. Objective - Exam Narrative Exam: Physical Exam: Constitutional: Alert, cooperative. No acute distress Head, Ears, Nose: Normocephalic, atraumatic. External ears, nose normal Eyes: Conjunctivae/corneas clear. No icterus. No ptosis. Neck: Supple, no meningeal signs Cardiovascular: S1, S2 normal. Respiratory: Good air entry, clear to auscultation bilaterally GI: Mucous fistula with colostomy bag, colostomy with biliary drainage, Musculoskeletal: No pedal edema, no cyanosis. Skin: No rash or abscess Hem/Lymphatic: No palpable cervical or supraclavicular nodes. No lymphangitis Psych: Mood ok. Affect normal Neurological: Awake, alert, oriented. No gross abnormality - Constitutional Vitals: Vital Signs Temp Pulse Resp BP Pulse Ox 99 F 76 18 114/74 96 01/10/20 11:25 01/10/20 11:25 01/10/20 11:25 01/10/20 11:25 01/10/20 11:25 Temperature -Last 24 Hours Temperature 99 F Temperature 99.4 F Temperature 98.6 F Temperature 98.2 F Temperature 99.5 F - Labs CBC & Chem 7: 01/10/20 00:49 01/10/20 00:49 Labs: Abnormal lab results 01/09/20 01/09/20 01/10/20 Range/Units 18:07 Unknown 00:49 WBC 17.2 H (4.5-11.0) K/mm3 RBC 2.92 L (3.65-5.03) M/mm3 Hgb 8.3 L (11.8-15.2) gm/dl Hct 24.6 L (35.5-45.6) % Plt Count 900 H D (140-440) K/mm3 Lymph % (Auto) 3.9 L (13.4-35.0) % Lymph # (Auto) 0.7 L (1.2-5.4) K/mm3 [place] # (Auto) 1.2 H (0.0-0.8) K/mm3 Seg Neutrophils % 88.1 H (40.0-70.0) % Seg Neutrophils # 15.1 H (1.8-7.7) K/mm3 Sodium (137-145) mmol/L Chloride (98-107) mmol/L BUN (9-20) mg/dL Creatinine (0.8-1.3) mg/dL Glucose (75-100) mg/dL POC Glucose 112 H (70-105) Total Bilirubin (0.1-1.2) mg/dL AST (5-40) units/L ALT (7-56) units/L Alkaline Phosphatase (35-129) units/L Albumin (3.9-5) g/dL Triglycerides 184 H (2-149) mg/dL 01/10/20 01/10/20 01/10/20 Range/Units 00:49 06:14 11:51 WBC (4.5-11.0) K/mm3 RBC (3.65-5.03) M/mm3 Hgb (11.8-15.2) gm/dl Hct (35.5-45.6) % Plt Count (140-440) K/mm3 Lymph % (Auto) (13.4-35.0) % Lymph # (Auto) (1.2-5.4) K/mm3 [place] # (Auto) (0.0-0.8) K/mm3 Seg Neutrophils % (40.0-70.0) % Seg Neutrophils # (1.8-7.7) K/mm3 Sodium 136 L (137-145) mmol/L Chloride 96.5 L (98-107) mmol/L BUN 24 H (9-20) mg/dL Creatinine 0.7 L (0.8-1.3) mg/dL Glucose 102 H (75-100) mg/dL POC Glucose 159 H 267 H (70-105) Total Bilirubin 2.10 H (0.1-1.2) mg/dL AST 69 H (5-40) units/L ALT 61 H (7-56) units/L Alkaline Phosphatase 171 H (35-129) units/L Albumin 2.6 L (3.9-5) g/dL Triglycerides (2-149) mg/dL
--- NOTE | 2020-01-10 13:57 | Progress Note ---
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 Patient states for the past 2 days he has had some abdominal distention in the right lower quadrant and crampy 10 out of 10 pain. He has had multiple episodes of nausea and vomiting. Denies fever chills cough cold or congestion. On December 30, [address] showed patient to have free air in colon. Surgical intervention was required. Patient had surgery had partial hemicolectomy during exploratory laparotomy was subsequently intubated and transferred to the intensive care unit. On December 31, 2019 patient returned to the OR for an additional surgery. After initial extubation. Patient was not follow commands agitated unable to really protect airways and therefore was reintubated. 01/02: s/p 2 UNITS OF FFP, Mild improvement in PLT, FOLLOW HIT. Monitor AM labs, Consult Dr Kendall if plt continues to drop. Low grade fever noted, will monitor, Room changed to better monitor risk of fall as patient still with some lethargy. ABG checked yesterday, did not reflect elevated CO2 01/03: Patient clinically stable showing some improvement. Continues on TPN. Continue to monitor for bowel movement. Still very lethargic. Platelets improving up to 61. Continue to await HIT results. Continue aggressive physical therapy. 01/04: Continue agressive Physical therapy, per surgery Continue NPO to allow ischemic bowel to resolve, hold chemical DVT prophylaxis till platelets greater than 100K, Continue TPN. serial labs, patient will need port for TPN at home, will not advance diet until bowel ischemia resolves which can probably be done Tuesday, that is adv to clears. Continue antibiotics, if fever increases repeat CT abd pelvis, not really indicated at this point. Need to wean sedation ( haldol etc), needs PT to help mobilize. Labs checked today platelet has improved anticipate port to be placed on Tuesday. Continue to hold heparin. SCDs placed 01/05: Continues to clinically improve. Discussed with surgeon today Only about 4FT small bowel left following surgery. Patient will need TPN for a long time. Anticipate port placement for tomorrow 01/06: Surgeon advancing diet to clear liquid today to see how the patient tolerates. Case management still working on health insurance application for the patient. Patient understands longer to recovery. Continue physical therapy to strengthen the patient as he may end up going home. Awaiting labs for this morning if white count continues to increase will obtain ID consultation to rule out any underlying infection. Blood is noted at this time on overview. Await repeat CT abdomen and pelvis with IV contrast. Port placement per surgeon when no evidence of systemic infection. Continue pain control. Thrombocytopenia has resolved if HIT result is negative will resume chemical prophylaxis. Plan of care discussed with the patient and nursing staff at bedside. 01/07. Diet advanced to clear liquid yesterday. CT abdomen and pelvis performed showed possible intraperitoneal fluid collection. CT guided drainage ordered today. WBC 12.9. Phosphorus level 12?. Will repeat CMP and phosphorus. 01/08. Plan for CT-guided drainage with port placement. IR has been consulted for this. ID consulted for possible intra-abdominal infection. Patient started on IV antibiotics. Labs reviewed. He request for pain and antianxiety medications this morning. 01/09. He feels better today. Antianxiety medication prescribed made him sleep well. His port has been placed. Cultures from peritoneum shows no organism yet. Problems (1) Small bowel obstruction Current Visit: Yes Status: Acute Plan to address problem: Status post exploratory lap x3. C surgery note. Some ischemic bowel. S/P Hemicolectomy. Fistula washed out. CT abdomen and pelvis shows intraperitoneal fluid collection. Now s/p CT-guided paracentesis. Awaiting cultures Monitor vital signs and labs. ID on board (2) Dehydration Current Visit: Yes Status: Resolved Plan to address problem: Patient well-hydrated. Fluid volumes stable ins and outs stable. (3) Acute Metabolic Encephalopathy with subsequent acute respiratory failure Resolved (4) Metabolic acidosis Current Visit: Yes Status: Acute Plan to address problem: Resolved (5) ANEMIA -precipitous drop in hemoglobin stable (6) Thrombocytopenia Platelet count has improved. HIT antibody negative (7) Severe protein calorie malnutrition cachexia On tpn. Clear liquid diet for now As per surgery, will be going home with TPN temporarily (8) DVT prophylaxis Current Visit: Yes Status: Acute Plan to address problem: Lovenox 40 mg daily. Monitor for bleeding and thrombocytopenia History Interval history: Patient seen and examined at bedside this morning. Feels better today. Says antianxiety medications helped. Hospitalist Physical - Constitutional Vitals: Temp Pulse Resp BP Pulse Ox 99 F 76 18 114/74 96 01/10/20 11:25 01/10/20 11:25 01/10/20 11:25 01/10/20 11:25 01/10/20 11:25 General appearance: Present: no acute distress - EENT Eyes: Present: PERRL - Respiratory Respiratory: bilateral: CTA - Cardiovascular Rhythm: regular - Abdominal General gastrointestinal: soft, other (ostomy bad in place draining fecal matter) - Neurologic Neurologic: CNII-XII intact Results - Labs CBC & Chem 7: 01/10/20 00:49 10 00:49 Labs: Laboratory Last Values WBC 17.2 K/mm3 (4.5-11.0) H 01/10/20 00:49 RBC 2.92 M/mm3 (3.65-5.03) L 01/10/20 00:49 Hgb 8.3 gm/dl (11.8-15.2) L 01/10/20 00:49 Hct 24.6 % (35.5-45.6) L 01/10/20 00:49 MCV 84 fl (84-94) 01/10/20 00:49 MCH 28 pg (28-32) 01/10/20 00:49 MCHC 34 % (32-34) 01/10/20 00:49 RDW 14.9 % (13.2-15.2) 01/10/20 00:49 Plt Count 900 K/mm3 (140-440) H D 01/10/20 00:49 Lymph % (Auto) 3.9 % (13.4-35.0) L 01/10/20 00:49 [place] % (Auto) 7.0 % (0.0-7.3) 01/10/20 00:49 Eos % (Auto) 0.6 % (0.0-4.3) 01/10/20 00:49 Baso % (Auto) 0.4 % (0.0-1.8) 01/10/20 00:49 Lymph # (Auto) 0.7 K/mm3 (1.2-5.4) L 01/10/20 00:49 [place] # (Auto) 1.2 K/mm3 (0.0-0.8) H 01/10/20 00:49 Eos # (Auto) 0.1 K/mm3 (0.0-0.4) 01/10/20 00:49 Baso # (Auto) 0.1 K/mm3 (0.0-0.1) 01/10/20 00:49 Add Manual Diff Complete 01/05/20 09:17 Total Counted 100 01/05/20 09:17 Seg Neutrophils % 88.1 % (40.0-70.0) H 01/10/20 00:49 Seg Neuts % (Manual) 97.0 % (40.0-70.0) H 01/05/20 09:17 Band Neutrophils % 0 % 01/05/20 09:17 Lymphocytes % (Manual) 0 % (13.4-35.0) L 01/05/20 09:17 Reactive Lymphs % (Man) 0 % 01/05/20 09:17 Monocytes % (Manual) 2.0 % (0.0-7.3) 01/05/20 09:17 Eosinophils % (Manual) 1.0 % (0.0-4.3) 01/05/20 09:17 Basophils % (Manual) 0 % (0.0-1.8) 01/05/20 09:17 Metamyelocytes % 0 % 01/05/20 09:17 Myelocytes % 0 % 01/05/20 09:17 Promyelocytes % 0 % 01/05/20 09:17 Blast Cells % 0 % 01/05/20 09:17 Nucleated RBC % Not Reportable 01/05/20 09:17 Seg Neutrophils # 15.1 K/mm3 (1.8-7.7) H 01/10/20 00:49 Seg Neutrophils # Man 11.7 K/mm3 (1.8-7.7) H 01/05/20 09:17 Band Neutrophils # 0.0 K/mm3 01/05/20 09:17 Lymphocytes # (Manual) 0.0 K/mm3 (1.2-5.4) L 01/05/20 09:17 Abs React Lymphs (Man) 0.0 K/mm3 01/05/20 09:17 Monocytes # (Manual) 0.2 K/mm3 (0.0-0.8) 01/05/20 09:17 Eosinophils # (Manual) 0.1 K/mm3 (0.0-0.4) 01/05/20 09:17 Basophils # (Manual) 0.0 K/mm3 (0.0-0.1) 01/05/20 09:17 Metamyelocytes # 0.0 K/mm3 01/05/20 09:17 Myelocytes # 0.0 K/mm3 01/05/20 09:17 Promyelocytes # 0.0 K/mm3 01/05/20 09:17 Blast Cells # 0.0 K/mm3 01/05/20 09:17 WBC Morphology Not Reportable 01/05/20 09:17 Hypersegmented Neuts Not Reportable 01/05/20 09:17 Hyposegmented Neuts Not Reportable 01/05/20 09:17 Hypogranular Neuts Not Reportable 01/05/20 09:17 Smudge Cells Not Reportable 01/05/20 09:17 Toxic Granulation Not Reportable 01/05/20 09:17 Toxic Vacuolation Not Reportable 01/05/20 09:17 Dohle Bodies Not Reportable 01/05/20 09:17 Pelger-Huet Anomaly Not Reportable 01/05/20 09:17 Anuradha Rods Not Reportable 01/05/20 09:17 Platelet Estimate Consistent w auto 01/05/20 09:17 Clumped Platelets Not Reportable 01/05/20 09:17 Plt Clumps, EDTA Not Reportable 01/05/20 09:17 Large Platelets Not Reportable 01/05/20 09:17 Giant Platelets Not Reportable 01/05/20 09:17 Platelet Satelliting Not Reportable 01/05/20 09:17 Plt Morphology Comment Not Reportable 01/05/20 09:17 RBC Morphology Not Reportable 01/05/20 09:17 Dimorphic RBCs Not Reportable 01/05/20 09:17 Polychromasia Not Reportable 01/05/20 09:17 Hypochromasia Not Reportable 01/05/20 09:17 Poikilocytosis Not Reportable 01/05/20 09:17 Anisocytosis Few 01/05/20 09:17 Microcytosis Not Reportable 01/05/20 09:17 Macrocytosis Not Reportable 01/05/20 09:17 Spherocytes Not Reportable 01/05/20 09:17 Pappenheimer Bodies Not Reportable 01/05/20 09:17 Sickle Cells Not Reportable 01/05/20 09:17 Target Cells 1+ 01/05/20 09:17 Tear Drop Cells Not Reportable 01/05/20 09:17 Ovalocytes Not Reportable 01/05/20 09:17 Helmet Cells Not Reportable 01/05/20 09:17 [place] Bodies Not Reportable 01/05/20 09:17 [place] Rings Not Reportable 01/05/20 09:17 [place]lie Cells Not Reportable 01/05/20 09:17 Bite Cells Not Reportable 01/05/20 09:17 Crenated Cell Not Reportable 01/05/20 09:17 Elliptocytes Not Reportable 01/05/20 09:17 Acanthocytes (Spur) Not Reportable 01/05/20 09:17 Rouleaux Not Reportable 01/05/20 09:17 Hemoglobin C Crystals Not Reportable 01/05/20 09:17 Schistocytes Not Reportable 01/05/20 09:17 Malaria parasites Not Reportable 01/05/20 09:17 Christ Bodies Not Reportable 01/05/20 09:17 Hem Pathologist Commnt No 01/05/20 09:17 PT 14.8 Sec. (12.2-14.9) 01/08/20 19:18 INR 1.14 (0.87-1.13) H 01/08/20 19:18 APTT 42.2 Sec. (24.2-36.6) H 12/30/19 22:30 Heparin Anti-Xa, Unfract Negative (Negative) 01/03/20 11:08 ABG pH 7.456 pH Units (7.350-7.450) H 01/01/20 05:15 POC ABG pCO2 34.7 mmHg (32.0-48.0) 12/31/19 04:03 ABG pCO2 34.1 mm Hg 01/01/20 05:15 POC ABG pO2 95.1 mmHg (83-108) 12/31/19 04:03 ABG pO2 85.3 mm Hg (80.0-90.0) 01/01/20 05:15 POC ABG HCO3 20.2 12/31/19 04:03 ABG HCO3 23.5 mmol/L (20.0-26.0) 01/01/20 05:15 ABG O2 Saturation 97.1 % (95.0-99.0) 01/01/20 05:15 ABG O2 Content 9.4 (0.0-44) 01/01/20 05:15 POC ABG Base Excess -4.2 12/31/19 04:03 ABG Base Excess -0.3 mmol/L (-2.0-3.0) 01/01/20 05:15 ABG Hemoglobin 6.9 gm/dl (14.0-18.0) L 01/01/20 05:15 ABG Carboxyhemoglobin 1.4 % (0.0-5.0) 01/01/20 05:15 ABG Methemoglobin 0.7 % (0.0-1.5) 01/01/20 05:15 Oxyhemoglobin 95.0 % (95.0-99.0) 01/01/20 05:15 FiO2 35 % 01/01/20 05:15 Sodium 136 mmol/L (137-145) L 01/10/20 00:49 Potassium 4.8 mmol/L (3.6-5.0) 01/10/20 00:49 Chloride 96.5 mmol/L (98-107) L 01/10/20 00:49 Carbon Dioxide 28 mmol/L (22-30) 01/10/20 00:49 Anion Gap 16 mmol/L 01/10/20 00:49 BUN 24 mg/dL (9-20) H 01/10/20 00:49 Creatinine 0.7 mg/dL (0.8-1.3) L 01/10/20 00:49 Estimated GFR > 60 ml/min 01/10/20 00:49 BUN/Creatinine Ratio 34 % 01/10/20 00:49 Glucose 102 mg/dL (75-100) H 01/10/20 00:49 POC Glucose 267 (70-105) H 01/10/20 11:51 Lactic Acid 1.00 mmol/L (0.7-2.0) 01/05/20 06:35 Calcium 8.4 mg/dL (8.4-10.2) 01/10/20 00:49 Phosphorus 3.50 mg/dL (2.5-4.5) 01/09/20 06:19 Magnesium 2.10 mg/dL (1.7-2.3) 01/09/20 06:19 Total Bilirubin 2.10 mg/dL (0.1-1.2) H 01/10/20 00:49 Direct Bilirubin 1.3 mg/dL (0-0.2) H 01/08/20 08:30 Indirect Bilirubin 1.0 mg/dL 01/08/20 08:30 AST 69 units/L (5-40) H 01/10/20 00:49 ALT 61 units/L (7-56) H 01/10/20 00:49 Alkaline Phosphatase 171 units/L (35-129) H 01/10/20 00:49 Total Protein 6.6 g/dL (6.3-8.2) D 01/10/20 00:49 Albumin 2.6 g/dL (3.9-5) L 01/10/20 00:49 Albumin/Globulin Ratio 0.7 % 01/10/20 00:49 Triglycerides 184 mg/dL (2-149) H 01/09/20 Unknown Lipase 9 units/L (13-60) L 12/29/19 14:29 Serotonin Release Assay See scanned result 01/03/20 11:08 Urine Color Yellow (Yellow) 12/27/19 Unknown Urine Turbidity Clear (Clear) 12/27/19 Unknown Urine pH 5.0 (5.0-7.0) 12/27/19 Unknown Ur Specific [place] Cbc Base > 1.059 (1.003-1.030) H 12/27/19 Unknown Urine Protein 30 mg/dl mg/dL (Negative) 12/27/19 Unknown Urine Glucose (UA) Neg mg/dL (Negative) 12/27/19 Unknown Urine Ketones 20 mg/dL (Negative) 12/27/19 Unknown Urine Blood Mod (Negative) 12/27/19 Unknown Urine Nitrite Neg (Negative) 12/27/19 Unknown Urine Bilirubin Neg (Negative) 12/27/19 Unknown Urine Urobilinogen < 2.0 mg/dL (<2.0) 12/27/19 Unknown Ur Leukocyte Esterase Neg (Negative) 12/27/19 Unknown Urine WBC (Auto) 2.0 /HPF (0.0-6.0) 12/27/19 Unknown Urine RBC (Auto) 28.0 /HPF (0.0-6.0) 12/27/19 Unknown U Epithel Cells (Auto) < 1.0 /HPF (0-13.0) 12/27/19 Unknown Urine Mucus 3+ /HPF 12/27/19 Unknown Fluid Type Paracentesis 01/09/20 Unknown Fluid Color Fauzia 01/09/20 Unknown Fluid Appearance Turbid 01/09/20 Unknown Fluid WBC 3225 /mm3 01/09/20 Unknown Fluid RBC 325 /mm3 01/09/20 Unknown Fluid Seg Neutrophils 87.0 % 01/09/20 Unknown Fluid Lymphocytes 10.0 % 01/09/20 Unknown Fluid Reactive Lymphs 0 % 01/09/20 Unknown Fluid Monocytes 3.0 % 01/09/20 Unknown Fluid Eosinophils 0 % 01/09/20 Unknown Fluid Basophils 0 % 01/09/20 Unknown Heparin-induced Plt Ab Negative (Negative) 01/03/20 11:08 UF Heparin High Dose 4 % Release 01/03/20 11:08 SU UFH Low Dose 0.1 9 % Release 01/03/20 11:08 SU UFH Low Dose 0.5 4 % Release 01/03/20 11:08 Blood Type B POSITIVE 12/29/19 19:52 Antibody Screen Negative 12/29/19 19:52 Crossmatch See Detail 12/29/19 19:52 Microbiology: Microbiology 01/09/20 06:19 Peripheral/Venous Blood Culture - Preliminary NO GROWTH AFTER 24 HOURS 01/09/20 06:25 Peripheral/Venous Blood Culture - Preliminary NO GROWTH AFTER 24 HOURS 01/09/20 Unknown Peritoneal Fluid Body Fluid Culture - Preliminary Azul/IV: Voiding Method Urinal IV Catheter Type [Left Forearm INT / Saline Lock ] IV Catheter Type [Left Hand] INT / Saline Lock IV Catheter Type [Left Wrist] Peripheral IV IV Catheter Type [Right Peripheral IV Forearm] IV Catheter Type [Right Upper PICC Line arm] IV Catheter Type [Right INT / Saline Lock Antecubital] Active Medications - Current Medications Current Medications: Generic Name Dose Route Start Last Admin Trade Name Freq PRN Reason Stop Dose Admin Acetaminophen 650 mg 12/27/19 23:14 01/09/20 05:55 Tylenol PO 650 mg Q4H PRN Administration Pain MILD(1-3)/Fever >100.5/LAZCANO Alprazolam 0.5 mg 01/09/20 11:33 01/10/20 00:52 Xanax PO 0.5 mg Q8H PRN Administration Anxiety Enoxaparin Sodium 40 mg 01/09/20 22:00 01/09/20 22:14 Enoxaparin SUB-Q 40 mg QDAY@2200 [facility] Administration Protocol Famotidine 20 mg 12/27/19 23:45 01/10/20 09:53 Pepcid IV 20 mg BID SUSAN Administration Hydromorphone HCl 0.5 mg 01/05/20 10:14 01/10/20 11:28 Dilaudid IV 0.5 mg Q4H PRN Administration Pain , Severe (7-10) Hydrophilic Ointment 1 applic 12/29/19 22:33 Vaseline Lip Therapy TP Q2HR PRN Dry Lips Sodium Chloride 1,000 mls @ 42 mls/hr 01/04/20 22:45 01/10/20 00:56 Nacl 0.9% 1000 Ml IV 42 mls/hr DIRECT SUSAN Administration Amino Acids/Electrolytes/Dextrose 2,000 mls @ 0 mls/hr 01/09/20 20:00 01/09/20 21:56 Tpn Adult IV 01/10/20 19:59 100 mls/hr DAILY@[email or web address] [facility] Administration Protocol As Directed Ceftriaxone Sodium 2 gm in 100 mls @ 200 mls/hr 01/09/20 15:00 01/10/20 09:54 Rocephin/Ns 2 Gm/100 Ml IV 200 mls/hr Q24HR SUSAN Administration Protocol Fluconazole 200 mg in 100 mls @ 100 mls/hr 01/09/20 16:00 01/10/20 10:35 Diflucan IV 100 mls/hr Q24HR SUSAN Administration Protocol Metronidazole 500 mg in 100 mls @ 100 mls/hr 01/09/20 16:00 01/10/20 05:02 Flagyl 500 Mg/100 Ml IV 100 mls/hr Q8HR SUSAN Administration Protocol Amino Acids/Electrolytes/Dextrose 2,000 mls @ 0 mls/hr 01/10/20 20:00 Tpn Adult IV 01/11/20 08:01 DAILY@[email or web address] [facility] Protocol As Directed Multi-Ingred Cream/Lotion/Oil/Oint 1 applic 12/29/19 22:33 Artificial Tears Ophth Oint OU Q4HR PRN Dry Eye(s) Nicotine 21 mg 12/31/19 10:00 01/10/20 10:01 Habitrol TD 21 mg QDAY SUSAN Administration Ondansetron HCl 4 mg 12/27/19 23:14 01/02/20 21:44 Zofran IV 4 mg Q3H PRN Administration Nausea And Vomiting Sodium Chloride 10 ml 12/28/19 10:00 01/10/20 09:53 Sodium Chloride Flush Syringe 10 Ml IV 10 ml BID SUSAN Administration Sodium Chloride 10 ml 12/27/19 23:14 12/29/19 10:40 Sodium Chloride Flush Syringe 10 Ml IV 10 ml PRN PRN Administration LINE FLUSH Nutrition/Malnutrition Assess - Dietary Evaluation Nutrition/Malnutrition Findings: Nutrition Notes Start: 12/30/19 08:57 Freq: Status: Active Protocol: Document 01/10/20 11:00 LP (Rec: 01/10/20 11:08 LP [id number]) Nutrition Notes Initial or Follow up Reassessment Current Diagnosis Malnutrition Other Pertinent Diagnosis SBO s/p hemicolectomy, R nephrectomy, anemia Current Diet 12h Cyclic CPN at 100/180/ 100ml/hr, Cl liq Labs/Tests Na 136 Pertinent Medications NS at 42ml/hr Height 5 ft 8 in Weight 62.5 kg [place] Body Weight (kg) 70.00 BMI 20.9 Weight Status Appropriate Subjective/Other Information CPN day 10. Pt cycled for 12 hr. Pt had port placed. Complained of abdominal pain. Percent of energy/protein needs met: 100%/100% Burn Absent Trauma Absent GI Symptoms None Current % PO Negligible Minimum of two criteria Yes Body Fat Depletion Mild depletion (non-severe) Muscle Mass Mild Depletion (non-severe) Reduced Vp Compliance Strength Measurably Reduced (severe) #2 Nutrition Diagnosis Malnutrition Diagnosis Progress(for reassessment Continues documentation) #1 Nutrition Diagnosis Inadequate oral intake As Evidenced by Signs and Symptoms Diet advanced to clear liquids Diagnosis Progress(for reassessment Improved documentation) Is patient on ventilator? No Is Patient Ambulatory and/or Out of Bed No REE-([facility]-confined to bed) 1820.400 Calculation Used for Recommendations [facility] Additional Notes Protein needs 78-94g (1.25-1. 5g/kg) Fluid needs 1ml/kcal Nutrition Intervention Change Diet Order: Continue CPN, Clear liquid Nutrition Support: 12 hr cycle CPN at 100/180/ 100ml/hr. 150mEq Na, 30mEq K, MVI. Osmolality: 1686 Kcal 1,760 Protein (gm) 100 Carbohydrates (gm) 400 Fat (gm) 0 Fluid (mL) 2,000 Fiber (gm) 0 Goal #1 CPN and clear liquid diet to meet 100% of nutrient needs Goal #2 Weight gain/maintenance Anticipated Discharge Needs: 12 hour cyclic TPN and clear liquid diet Follow-Up By: 01/11/20 Additional Comments Labs in AM: BMP, Mg, Phos
[2020-01-10] MEDS ORDERED: TOTAL PARENTERAL NUTRITION 2,000 ML IV SCH (20:00)
--- NOTE | 2020-01-10 20:04 | Event Note ---
Date: 01/10/20 I visited patient, he seems to be doing well following port placement, Thank You Dr. Barrientos. Now that port is in place we need to work on home TPN. I had a long discussion with patient regarding our fci strategy and various options. He is in good spirits, his wound is healing nicely, and we just need to get him where he can change his ostomy bags reliable, and mobilize.
[2020-01-10] MEDS: ENOXAPARIN 40 MG/0.4 ML INJ SUB-Q SCH (21:45)
[2020-01-11] MEDS: HYDROmorphone 1 MG/1 ML INJ IV PRN ×6 (00:34→23:58)
[2020-01-11] MEDS: metroNIDAZOLE/NS 500 MG/100 ML 500 MG/100 ML BAG IV SCH ×3 (05:15→21:38)
--- NOTE | 2020-01-11 07:58 | Event Note ---
Date: 01/11/20 Can we start to cycle TPN ?to prepare patient for home use of TPN, also it may help his LFTs/ or liver to adjust to TPN.
[2020-01-11 09:41] LABS: Basophils # (Auto) 0.1 K/mm3 (0.0-0.1); Basophils % (Auto) 0.6 % (0.0-1.8); Eosinophils # (Auto) 0.1 K/mm3 (0.0-0.4); Eosinophils % (Auto) 0.6 % (0.0-4.3); Lymphocytes # (Auto) 1.3 K/mm3 (1.2-5.4); Lymphocytes % (Auto) 7.1 % (13.4-35.0); Mean Corpuscular HGB Conc 34 % (32-34); Mean Corpuscular Volume 85 fl (84-94); Monocytes # (Auto) 1.9 K/mm3 (0.0-0.8); Monocytes % (Auto) 10.6 % (0.0-7.3); Red Blood Count 2.01 M/mm3 (3.65-5.03); Red Cell Distribution Width 14.3 % (13.2-15.2)
[2020-01-11 09:50] LABS: Hemoglobin 5.8 gm/dl (11.8-15.2)
[2020-01-11 09:51] LABS: Platelet Count 1327 K/mm3 (140-440)
[2020-01-11 10:08] LABS: Alanine Aminotransferase 61 units/L (7-56); Albumin 2.5 g/dL (3.9-5); Blood Urea Nitrogen 26 mg/dL (9-20); Calcium 8.7 mg/dL (8.4-10.2); Hemolysis Index 0
[2020-01-11 10:09] LABS: BUN/Creatinine Ratio 37
[2020-01-11] MEDS: FLUCONAZOLE 200 MG 200 MG/100 ML BAG IV SCH (10:25)
[2020-01-11] MEDS: cefTRIAXone/NS 2 GM/100 ML 2 GM/100 ML BAG IV SCH (10:25)
[2020-01-11] MEDS: PANTOPRAZOLE 40 MG INJ IV SCH (10:25)
[2020-01-11] MEDS: NICOTINE 21 MG/24 HR PATCH TD SCH (10:26)
[2020-01-11 11:57] LABS: Basophils # (Auto) 0.1 K/mm3 (0.0-0.1); Basophils % (Auto) 0.7 % (0.0-1.8); Eosinophils # (Auto) 0.1 K/mm3 (0.0-0.4); Eosinophils % (Auto) 0.4 % (0.0-4.3); Hematocrit 22.1 % (35.5-45.6); Hemoglobin 7.6 gm/dl (11.8-15.2); Lymphocytes # (Auto) 0.8 K/mm3 (1.2-5.4); Lymphocytes % (Auto) 5.6 % (13.4-35.0); Mean Corpuscular HGB Conc 34 % (32-34); Mean Corpuscular Volume 85 fl (84-94); Monocytes # (Auto) 1.2 K/mm3 (0.0-0.8); Monocytes % (Auto) 8.8 % (0.0-7.3); Platelet Count 958 K/mm3 (140-440); Red Cell Distribution Width 14.5 % (13.2-15.2)
--- NOTE | 2020-01-11 12:10 | Progress Note ---
Assessment and Plan Assessment and plan: Patient is a 39-year-old F [place] male with a past medical history of right- sided nephrectomy status post Wilms tumor and appendectomy both of which occurred in the late 80s who is presenting with abdominal pain. Patient states for the past 2 days he has had some abdominal distention in the right lower quadrant and crampy 10 out of 10 pain. He has had multiple episodes of nausea and vomiting. Denies fever chills cough cold or congestion. On December 30, [address] showed patient to have free air in colon. Surgical intervention was required. Patient had surgery had partial hemicolectomy during exploratory laparotomy was subsequently intubated and transferred to the intensive care unit. On December 31, 2019 patient returned to the OR for an additional surgery. After initial extubation. Patient was not follow commands agitated unable to really protect airways and therefore was reintubated. 01/02: s/p 2 UNITS OF FFP, Mild improvement in PLT, FOLLOW HIT. Monitor AM labs, Consult Dr Kendall if plt continues to drop. Low grade fever noted, will monitor, Room changed to better monitor risk of fall as patient still with some lethargy. ABG checked yesterday, did not reflect elevated CO2 01/03: Patient clinically stable showing some improvement. Continues on TPN. Continue to monitor for bowel movement. Still very lethargic. Platelets improving up to 61. Continue to await HIT results. Continue aggressive physical therapy. 01/04: Continue agressive Physical therapy, per surgery Continue NPO to allow ischemic bowel to resolve, hold chemical DVT prophylaxis till platelets greater than 100K, Continue TPN. serial labs, patient will need port for TPN at home, will not advance diet until bowel ischemia resolves which can probably be done Tuesday, that is adv to clears. Continue antibiotics, if fever increases repeat CT abd pelvis, not really indicated at this point. Need to wean sedation ( haldol etc), needs PT to help mobilize. Labs checked today platelet has improved anticipate port to be placed on Tuesday. Continue to hold heparin. SCDs placed 01/05: Continues to clinically improve. Discussed with surgeon today Only about 4FT small bowel left following surgery. Patient will need TPN for a long time. Anticipate port placement for tomorrow 01/06: Surgeon advancing diet to clear liquid today to see how the patient tolerates. Case management still working on health insurance application for the patient. Patient understands longer to recovery. Continue physical therapy to strengthen the patient as he may end up going home. Awaiting labs for this morning if white count continues to increase will obtain ID consultation to rule out any underlying infection. Blood is noted at this time on overview. Await repeat CT abdomen and pelvis with IV contrast. Port placement per surgeon when no evidence of systemic infection. Continue pain control. Thrombocytopenia has resolved if HIT result is negative will resume chemical prophylaxis. Plan of care discussed with the patient and nursing staff at bedside. 01/07. Diet advanced to clear liquid yesterday. CT abdomen and pelvis performed showed possible intraperitoneal fluid collection. CT guided drainage ordered today. WBC 12.9. Phosphorus level 12?. Will repeat CMP and phosphorus. 01/08. Plan for CT-guided drainage with port placement. IR has been consulted for this. ID consulted for possible intra-abdominal infection. Patient started on IV antibiotics. Labs reviewed. He request for pain and antianxiety medications this morning. 01/09. He feels better today. Antianxiety medication prescribed made him sleep well. His port has been placed. Cultures from peritoneum shows no organism yet. 01/10. He has some abdominal discomforts. He is on pain medications. Labs reviewed showed thrombocythemia. Hematology oncology has been consulted. Problems (1) Small bowel obstruction Current Visit: Yes Status: Acute Plan to address problem: Status post exploratory lap x3. C surgery note. Some ischemic bowel. S/P Hemicolectomy. Fistula washed out. CT abdomen and pelvis shows intraperitoneal fluid collection. Now s/p CT-guided paracentesis. Awaiting final cultures Monitor vital signs and labs. ID on board. Patient started on ceftriaxone, Flagyl and fluconazole for possible intra-abdominal infection (2) Dehydration Current Visit: Yes Status: Resolved Plan to address problem: Patient well-hydrated (3) Acute Metabolic Encephalopathy with subsequent acute respiratory failure Resolved (4) Metabolic acidosis Current Visit: Yes Status: Acute Plan to address problem: Resolved (5) ANEMIA -precipitous drop in hemoglobin Continue to monitor hemoglobin-hemoglobin today 7.6 (6) Thrombocythemia Initially had thrombocytopenia and there was a concern for HIT blood test was negative Now has been thrombocythemia with platelet count up to 900s. This is likely reactive. We will consult hematology oncology (7) Severe protein calorie malnutrition cachexia On tpn. Clear liquid diet for now As per surgery, will be going home with TPN temporarily (8) DVT prophylaxis Current Visit: Yes Status: Acute Plan to address problem: Lovenox 40 mg daily. History Interval history: Patient seen and examined at bedside this morning. Has no complaints today. Labs showed increasing platelets. Hematology oncology has been consulted Hospitalist Physical - Constitutional Vitals: Temp Pulse Resp BP Pulse Ox 99.4 F 119 H 24 104/66 83 L 01/11/20 08:08 01/11/20 08:08 01/11/20 08:08 01/11/20 08:08 01/11/20 08:08 General appearance: Present: no acute distress - EENT Eyes: Present: PERRL - Respiratory Respiratory: bilateral: CTA - Cardiovascular Heart Sounds: Present: S1 & S2 - Extremities Extremities: No edema - Abdominal General gastrointestinal: soft, normal bowel sounds, other (Ostomies in place) - Psychiatric Psychiatric: appropriate mood/affect - Neurologic Neurologic: CNII-XII intact Results - Labs CBC & Chem 7: 01/11/20 11:15 01/11/20 09:20 Labs: Laboratory Last Values WBC 13.4 K/mm3 (4.5-11.0) H 01/11/20 11:15 RBC 2.60 M/mm3 (3.65-5.03) L 01/11/20 11:15 Hgb 7.6 gm/dl (11.8-15.2) L 01/11/20 11:15 Hct 22.1 % (35.5-45.6) L 01/11/20 11:15 MCV 85 fl (84-94) 01/11/20 11:15 MCH 29 pg (28-32) 01/11/20 11:15 MCHC 34 % (32-34) 01/11/20 11:15 RDW 14.5 % (13.2-15.2) 01/11/20 11:15 Plt Count 958 K/mm3 (140-440) H 01/11/20 11:15 Lymph % (Auto) 5.6 % (13.4-35.0) L 01/11/20 11:15 [place] % (Auto) 8.8 % (0.0-7.3) H 01/11/20 11:15 Eos % (Auto) 0.4 % (0.0-4.3) 01/11/20 11:15 Baso % (Auto) 0.7 % (0.0-1.8) 01/11/20 11:15 Lymph # (Auto) 0.8 K/mm3 (1.2-5.4) L 01/11/20 11:15 [place] # (Auto) 1.2 K/mm3 (0.0-0.8) H 01/11/20 11:15 Eos # (Auto) 0.1 K/mm3 (0.0-0.4) 01/11/20 11:15 Baso # (Auto) 0.1 K/mm3 (0.0-0.1) 01/11/20 11:15 Add Manual Diff Complete 01/05/20 09:17 Total Counted 100 01/05/20 09:17 Seg Neutrophils % 84.5 % (40.0-70.0) H 01/11/20 11:15 Seg Neuts % (Manual) 97.0 % (40.0-70.0) H 01/05/20 09:17 Band Neutrophils % 0 % 01/05/20 09:17 Lymphocytes % (Manual) 0 % (13.4-35.0) L 01/05/20 09:17 Reactive Lymphs % (Man) 0 % 01/05/20 09:17 Monocytes % (Manual) 2.0 % (0.0-7.3) 01/05/20 09:17 Eosinophils % (Manual) 1.0 % (0.0-4.3) 01/05/20 09:17 Basophils % (Manual) 0 % (0.0-1.8) 01/05/20 09:17 Metamyelocytes % 0 % 01/05/20 09:17 Myelocytes % 0 % 01/05/20 09:17 Promyelocytes % 0 % 01/05/20 09:17 Blast Cells % 0 % 01/05/20 09:17 Nucleated RBC % Not Reportable 01/05/20 09:17 Seg Neutrophils # 11.4 K/mm3 (1.8-7.7) H 01/11/20 11:15 Seg Neutrophils # Man 11.7 K/mm3 (1.8-7.7) H 01/05/20 09:17 Band Neutrophils # 0.0 K/mm3 01/05/20 09:17 Lymphocytes # (Manual) 0.0 K/mm3 (1.2-5.4) L 01/05/20 09:17 Abs React Lymphs (Man) 0.0 K/mm3 01/05/20 09:17 Monocytes # (Manual) 0.2 K/mm3 (0.0-0.8) 01/05/20 09:17 Eosinophils # (Manual) 0.1 K/mm3 (0.0-0.4) 01/05/20 09:17 Basophils # (Manual) 0.0 K/mm3 (0.0-0.1) 01/05/20 09:17 Metamyelocytes # 0.0 K/mm3 01/05/20 09:17 Myelocytes # 0.0 K/mm3 01/05/20 09:17 Promyelocytes # 0.0 K/mm3 01/05/20 09:17 Blast Cells # 0.0 K/mm3 01/05/20 09:17 WBC Morphology Not Reportable 01/05/20 09:17 Hypersegmented Neuts Not Reportable 01/05/20 09:17 Hyposegmented Neuts Not Reportable 01/05/20 09:17 Hypogranular Neuts Not Reportable 01/05/20 09:17 Smudge Cells Not Reportable 01/05/20 09:17 Toxic Granulation Not Reportable 01/05/20 09:17 Toxic Vacuolation Not Reportable 01/05/20 09:17 Dohle Bodies Not Reportable 01/05/20 09:17 Pelger-Huet Anomaly Not Reportable 01/05/20 09:17 Anuradha Rods Not Reportable 01/05/20 09:17 Platelet Estimate Consistent w auto 01/05/20 09:17 Clumped Platelets Not Reportable 01/05/20 09:17 Plt Clumps, EDTA Not Reportable 01/05/20 09:17 Large Platelets Not Reportable 01/05/20 09:17 Giant Platelets Not Reportable 01/05/20 09:17 Platelet Satelliting Not Reportable 01/05/20 09:17 Plt Morphology Comment Not Reportable 01/05/20 09:17 RBC Morphology Not Reportable 01/05/20 09:17 Dimorphic RBCs Not Reportable 01/05/20 09:17 Polychromasia Not Reportable 01/05/20 09:17 Hypochromasia Not Reportable 01/05/20 09:17 Poikilocytosis Not Reportable 01/05/20 09:17 Anisocytosis Few 01/05/20 09:17 Microcytosis Not Reportable 01/05/20 09:17 Macrocytosis Not Reportable 01/05/20 09:17 Spherocytes Not Reportable 01/05/20 09:17 Pappenheimer Bodies Not Reportable 01/05/20 09:17 Sickle Cells Not Reportable 01/05/20 09:17 Target Cells 1+ 01/05/20 09:17 Tear Drop Cells Not Reportable 01/05/20 09:17 Ovalocytes Not Reportable 01/05/20 09:17 Helmet Cells Not Reportable 01/05/20 09:17 Aleman-Pavillion Bodies Not Reportable 01/05/20 09:17 [place] Rings Not Reportable 01/05/20 09:17 Kaylie Cells Not Reportable 01/05/20 09:17 Bite Cells Not Reportable 01/05/20 09:17 Crenated Cell Not Reportable 01/05/20 09:17 Elliptocytes Not Reportable 01/05/20 09:17 Acanthocytes (Spur) Not Reportable 01/05/20 09:17 Rouleaux Not Reportable 01/05/20 09:17 Hemoglobin C Crystals Not Reportable 01/05/20 09:17 Schistocytes Not Reportable 01/05/20 09:17 Malaria parasites Not Reportable 01/05/20 09:17 Christ Bodies Not Reportable 01/05/20 09:17 Hem Pathologist Commnt No 01/05/20 09:17 PT 14.8 Sec. (12.2-14.9) 01/08/20 19:18 INR 1.14 (0.87-1.13) H 01/08/20 19:18 APTT 42.2 Sec. (24.2-36.6) H 12/30/19 22:30 Heparin Anti-Xa, Unfract Negative (Negative) 01/03/20 11:08 ABG pH 7.456 pH Units (7.350-7.450) H 01/01/20 05:15 POC ABG pCO2 34.7 mmHg (32.0-48.0) 12/31/19 04:03 ABG pCO2 34.1 mm Hg 01/01/20 05:15 POC ABG pO2 95.1 mmHg (83-108) 12/31/19 04:03 ABG pO2 85.3 mm Hg (80.0-90.0) 01/01/20 05:15 POC ABG HCO3 20.2 12/31/19 04:03 ABG HCO3 23.5 mmol/L (20.0-26.0) 01/01/20 05:15 ABG O2 Saturation 97.1 % (95.0-99.0) 01/01/20 05:15 ABG O2 Content 9.4 (0.0-44) 01/01/20 05:15 POC ABG Base Excess -4.2 12/31/19 04:03 ABG Base Excess -0.3 mmol/L (-2.0-3.0) 01/01/20 05:15 ABG Hemoglobin 6.9 gm/dl (14.0-18.0) L 01/01/20 05:15 ABG Carboxyhemoglobin 1.4 % (0.0-5.0) 01/01/20 05:15 ABG Methemoglobin 0.7 % (0.0-1.5) 01/01/20 05:15 Oxyhemoglobin 95.0 % (95.0-99.0) 01/01/20 05:15 FiO2 35 % 01/01/20 05:15 Sodium 141 mmol/L (137-145) 01/11/20 09:20 Potassium 4.3 mmol/L (3.6-5.0) 01/11/20 09:20 Chloride 97.3 mmol/L (98-107) L 01/11/20 09:20 Carbon Dioxide 28 mmol/L (22-30) 01/11/20 09:20 Anion Gap 20 mmol/L 01/11/20 09:20 BUN 26 mg/dL (9-20) H 01/11/20 09:20 Creatinine 0.7 mg/dL (0.8-1.3) L 01/11/20 09:20 Estimated GFR > 60 ml/min 01/11/20 09:20 BUN/Creatinine Ratio 37 % 01/11/20 09:20 Glucose 100 mg/dL (75-100) 01/11/20 09:20 POC Glucose 90 (70-105) 01/10/20 21:54 Lactic Acid 1.00 mmol/L (0.7-2.0) 01/05/20 06:35 Calcium 8.7 mg/dL (8.4-10.2) 01/11/20 09:20 Phosphorus 3.60 mg/dL (2.5-4.5) 01/11/20 09:20 Magnesium 2.30 mg/dL (1.7-2.3) 01/11/20 09:20 Total Bilirubin 1.50 mg/dL (0.1-1.2) H 01/11/20 09:20 Direct Bilirubin 1.3 mg/dL (0-0.2) H 01/08/20 08:30 Indirect Bilirubin 1.0 mg/dL 01/08/20 08:30 AST 40 units/L (5-40) 01/11/20 09:20 ALT 61 units/L (7-56) H 01/11/20 09:20 Alkaline Phosphatase 177 units/L (35-129) H 01/11/20 09:20 Total Protein 6.5 g/dL (6.3-8.2) 01/11/20 09:20 Albumin 2.5 g/dL (3.9-5) L 01/11/20 09:20 Albumin/Globulin Ratio 0.6 % 01/11/20 09:20 Triglycerides 184 mg/dL (2-149) H 01/09/20 Unknown Lipase 9 units/L (13-60) L 12/29/19 14:29 Serotonin Release Assay See scanned result 01/03/20 11:08 Urine Color Yellow (Yellow) 12/27/19 Unknown Urine Turbidity Clear (Clear) 12/27/19 Unknown Urine pH 5.0 (5.0-7.0) 12/27/19 Unknown Ur Specific [place] > 1.059 (1.003-1.030) H 12/27/19 Unknown Urine Protein 30 mg/dl mg/dL (Negative) 12/27/19 Unknown Urine Glucose (UA) Neg mg/dL (Negative) 12/27/19 Unknown Urine Ketones 20 mg/dL (Negative) 12/27/19 Unknown Urine Blood Mod (Negative) 12/27/19 Unknown Urine Nitrite Neg (Negative) 12/27/19 Unknown Urine Bilirubin Neg (Negative) 12/27/19 Unknown Urine Urobilinogen < 2.0 mg/dL (<2.0) 12/27/19 Unknown Ur Leukocyte Esterase Neg (Negative) 12/27/19 Unknown Urine WBC (Auto) 2.0 /HPF (0.0-6.0) 12/27/19 Unknown Urine RBC (Auto) 28.0 /HPF (0.0-6.0) 12/27/19 Unknown U Epithel Cells (Auto) < 1.0 /HPF (0-13.0) 12/27/19 Unknown Urine Mucus 3+ /HPF 12/27/19 Unknown Fluid Type Paracentesis 01/09/20 Unknown Fluid Color Fauzia 01/09/20 Unknown Fluid Appearance Turbid 01/09/20 Unknown Fluid WBC 3225 /mm3 01/09/20 Unknown Fluid RBC 325 /mm3 01/09/20 Unknown Fluid Seg Neutrophils 87.0 % 01/09/20 Unknown Fluid Lymphocytes 10.0 % 01/09/20 Unknown Fluid Reactive Lymphs 0 % 01/09/20 Unknown Fluid Monocytes 3.0 % 01/09/20 Unknown Fluid Eosinophils 0 % 01/09/20 Unknown Fluid Basophils 0 % 01/09/20 Unknown Heparin-induced Plt Ab Negative (Negative) 01/03/20 11:08 UF Heparin High Dose 4 % Release 01/03/20 11:08 SU UFH Low Dose 0.1 9 % Release 01/03/20 11:08 SU UFH Low Dose 0.5 4 % Release 01/03/20 11:08 Blood Type B POSITIVE 12/29/19 19:52 Antibody Screen Negative 12/29/19 19:52 Crossmatch See Detail 12/29/19 19:52 Microbiology: Microbiology 01/09/20 Unknown Peritoneal Fluid Body Fluid Culture - Preliminary 01/09/20 06:19 Peripheral/Venous Blood Culture - Preliminary NO GROWTH AFTER 48 HOURS 01/09/20 06:25 Peripheral/Venous Blood Culture - Preliminary NO GROWTH AFTER 48 HOURS Azul/IV: Voiding Method Urinal IV Catheter Type [Left Forearm INT / Saline Lock ] IV Catheter Type [Left Hand] INT / Saline Lock IV Catheter Type [Left Wrist] Peripheral IV IV Catheter Type [Right Peripheral IV Forearm] IV Catheter Type [Right Upper PICC Line arm] IV Catheter Type [Right INT / Saline Lock Antecubital] Active Medications - Current Medications Current Medications: Generic Name Dose Route Start Last Admin Trade Name Freq PRN Reason Stop Dose Admin Acetaminophen 650 mg 12/27/19 23:14 01/09/20 05:55 Tylenol PO 650 mg Q4H PRN Administration Pain MILD(1-3)/Fever >100.5/LAZCANO Alprazolam 0.5 mg 01/09/20 11:33 01/10/20 21:46 Xanax PO 0.5 mg Q8H PRN Administration Anxiety Enoxaparin Sodium 40 mg 01/09/20 22:00 01/10/20 21:45 Enoxaparin SUB-Q 40 mg QDAY@2200 SUSAN Administration Protocol Hydromorphone HCl 0.5 mg 01/05/20 10:14 01/11/20 10:24 Dilaudid IV 0.5 mg Q4H PRN Administration Pain , Severe (7-10) Hydrophilic Ointment 1 applic 12/29/19 22:33 Vaseline Lip Therapy TP Q2HR PRN Dry Lips Sodium Chloride 1,000 mls @ 42 mls/hr 01/04/20 22:45 01/10/20 00:56 Nacl 0.9% 1000 Ml IV 42 mls/hr DIRECT SUSAN Administration Ceftriaxone Sodium 2 gm in 100 mls @ 200 mls/hr 01/09/20 15:00 01/11/20 10:25 Rocephin/Ns 2 Gm/100 Ml IV 200 mls/hr Q24HR SUSAN Administration Protocol Fluconazole 200 mg in 100 mls @ 100 mls/hr 01/09/20 16:00 01/11/20 10:25 Diflucan IV 100 mls/hr Q24HR SUSAN Administration Protocol Metronidazole 500 mg in 100 mls @ 100 mls/hr 01/09/20 16:00 01/11/20 05:15 Flagyl 500 Mg/100 Ml IV 100 mls/hr Q8HR SUSAN Administration Protocol Multi-Ingred Cream/Lotion/Oil/Oint 1 applic 12/29/19 22:33 Artificial Tears Ophth Oint OU Q4HR PRN Dry Eye(s) Nicotine 21 mg 12/31/19 10:00 01/11/20 10:26 Habitrol TD 21 mg QDAY SUSAN Administration Ondansetron HCl 4 mg 12/27/19 23:14 01/02/20 21:44 Zofran IV 4 mg Q3H PRN Administration Nausea And Vomiting Pantoprazole Sodium 40 mg 01/11/20 10:00 01/11/20 10:25 Protonix IV 40 mg QDAY SUSAN Administration Sodium Chloride 10 ml 12/28/19 10:00 01/11/20 10:26 Sodium Chloride Flush Syringe 10 Ml IV 10 ml BID SUSAN Administration Sodium Chloride 10 ml 12/27/19 23:14 12/29/19 10:40 Sodium Chloride Flush Syringe 10 Ml IV 10 ml PRN PRN Administration LINE FLUSH Nutrition/Malnutrition Assess - Dietary Evaluation Nutrition/Malnutrition Findings: Nutrition Notes Start: 12/30/19 08:57 Freq: Status: Active Protocol: Document 01/10/20 11:00 LP (Rec: 01/10/20 11:08 LP [email or web address]) Nutrition Notes Initial or Follow up Reassessment Current Diagnosis Malnutrition Other Pertinent Diagnosis SBO s/p hemicolectomy, R nephrectomy, anemia Current Diet 12h Cyclic CPN at 100/180/ 100ml/hr, Cl liq Labs/Tests Na 136 Pertinent Medications NS at 42ml/hr Height 5 ft 8 in Weight 62.5 kg Energy Body Weight (kg) 70.00 BMI 20.9 Weight Status Appropriate Subjective/Other Information CPN day 10. Pt cycled for 12 hr. Pt had port placed. Complained of abdominal pain. Percent of energy/protein needs met: 100%/100% Burn Absent Trauma Absent GI Symptoms None Current % PO Negligible Minimum of two criteria Yes Body Fat Depletion Mild depletion (non-severe) Muscle Mass Mild Depletion (non-severe) Reduced Payroll Director Strength Measurably Reduced (severe) #2 Nutrition Diagnosis Malnutrition Diagnosis Progress(for reassessment Continues documentation) #1 Nutrition Diagnosis Inadequate oral intake As Evidenced by Signs and Symptoms Diet advanced to clear liquids Diagnosis Progress(for reassessment Improved documentation) Is patient on ventilator? No Is Patient Ambulatory and/or Out of Bed No REE-([facility]-confined to bed) 1820.400 Calculation Used for Recommendations [facility] Additional Notes Protein needs 78-94g (1.25-1. 5g/kg) Fluid needs 1ml/kcal Nutrition Intervention Change Diet Order: Continue CPN, Clear liquid Nutrition Support: 12 hr cycle CPN at 100/180/ 100ml/hr. 150mEq Na, 30mEq K, MVI. Osmolality: 1686 Kcal 1,760 Protein (gm) 100 Carbohydrates (gm) 400 Fat (gm) 0 Fluid (mL) 2,000 Fiber (gm) 0 Goal #1 CPN and clear liquid diet to meet 100% of nutrient needs Goal #2 Weight gain/maintenance Anticipated Discharge Needs: 12 hour cyclic TPN and clear liquid diet Follow-Up By: 01/11/20 Additional Comments Labs in AM: CLIF, Mg, Phos
--- NOTE | 2020-01-11 12:16 | Progress Note ---
Assessment and Plan Cultures: 12/29/2019 sputum culture: Usual respiratory eric 12/29/2019 surgical culture/peritoneal fluid: E. coli resistant to ampicillin, Unasyn and Bactrim, susceptible to all cephalosporins and fluoroquinolones. 01/09/2020 blood culture: In process 01/09/2020 peritoneal fluid IR culture: In process A/P: 39-year-old male with remote history of Wilms tumor requiring right-sided nephrectomy and appendectomy in the was admitted to the hospital with abdominal pain. 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 CT with ascites/fluid collection, IR aspirated on 01/09/2020. #Sepsis, secondary to above #Need for assisted TPN: got PORT placed. #Anemia, acute thrombocytosis Recs: continue IV Ceftriaxone, Flagyl and Fluconazole f/u peritoneal fluid cultures from 01/09/2020, if they remain negative, possibly stop antibiotics 7 days from the date of drainage (end date: 01/16/2020) Yamil Anderson MD, FACP [facility] ([facility]) O: [phone] F: [phone] Subjective Date of service: 01/11/20 Principal diagnosis: Abdominal pain small bowel obstruction Interval history: No new complaints. No fever. Objective - Exam Narrative Exam: Physical Exam: Constitutional: Alert, cooperative. No acute distress Head, Ears, Nose: Normocephalic, atraumatic. External ears, nose normal Eyes: Conjunctivae/corneas clear. No icterus. No ptosis. Neck: Supple, no meningeal signs Cardiovascular: S1, S2 normal. Respiratory: Good air entry, clear to auscultation bilaterally GI: Mucous fistula with colostomy bag, colostomy with biliary drainage Musculoskeletal: No pedal edema, no cyanosis. Skin: No rash or abscess Hem/Lymphatic: No palpable cervical or supraclavicular nodes. No lymphangitis Psych: Mood ok. Affect normal Neurological: Awake, alert, oriented. No gross abnormality - Constitutional Vitals: Vital Signs Temp Pulse Resp BP Pulse Ox 99.4 F 119 H 24 104/66 83 L 01/11/20 08:08 10/09/20 08:08 01/11/20 08:08 01/11/20 08:08 01/11/20 08:08 Temperature -Last 24 Hours Temperature 99.4 F Temperature 99.2 F Temperature 99.6 F - Labs CBC & Chem 7: 01/11/20 11:15 01/11/20 09:20 Labs: Abnormal lab results 01/11/20 01/11/20 01/11/20 Range/Units 09:20 09:20 11:15 WBC 18.0 H 13.4 H (4.5-11.0) K/mm3 RBC 2.01 L 2.60 L (3.65-5.03) M/mm3 Hgb 5.8 L* 7.6 L (11.8-15.2) gm/dl Hct 17.0 L* D 22.1 L (35.5-45.6) % Plt Count 1327 H* 958 H (140-440) K/mm3 Lymph % (Auto) 7.1 L 5.6 L (13.4-35.0) % [place] % (Auto) 10.6 H 8.8 H (0.0-7.3) % Lymph # (Auto) 0.8 L (1.2-5.4) K/mm3 [place] # (Auto) 1.9 H 1.2 H (0.0-0.8) K/mm3 Seg Neutrophils % 81.1 H 84.5 H (40.0-70.0) % Seg Neutrophils # 14.6 H 11.4 H (1.8-7.7) K/mm3 Chloride 97.3 L (98-107) mmol/L BUN 26 H (9-20) mg/dL Creatinine 0.7 L (0.8-1.3) mg/dL Total Bilirubin 1.50 H (0.1-1.2) mg/dL ALT 61 H (7-56) units/L Alkaline Phosphatase 177 H (35-129) units/L Albumin 2.5 L (3.9-5) g/dL
--- NOTE | 2020-01-11 12:38 | Event Note ---
Date: 01/11/20 I spoke with Mid Wife, patient is taking too much fluids by mouth with high jejunostomy output, will make NPO except ice chips, rock candy, gum. We are cycling TPN and will increase fluids in TPN, we need to work on how patient can recieve TPN at home so he can get out of the Hospital. I appreciate [facility] inuput.Very complex case, hopefully case management can help patient to get Medicaid to help pay for his TPN. The patient has limited resources and certainly will be unable to work given his condition/short gut .
[2020-01-11] MEDS: SODIUM CHLORIDE 0.9% 1000 ML 1,000 ML IV SCH (18:49)
[2020-01-11] MEDS ORDERED: FAT EMULSIONS 20% 250 ML IV SCH (20:00)
[2020-01-11] MEDS ORDERED: TOTAL PARENTERAL NUTRITION 2,000 ML IV SCH (20:00)
[2020-01-11] MEDS: ENOXAPARIN 40 MG/0.4 ML INJ SUB-Q SCH (21:38)
[2020-01-11] MEDS: ALPRAZolam 0.5 MG TAB PO PRN (21:38)
--- NOTE | 2020-01-11 22:34 | Consultation ---
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 coil for several days had low plt counts, r/o HIT including neg SU now has high plt count >1000 has been receiving IV Abd and low dose lovenox generally doing better now than he was doing during the past few weeks felt to have "short gut syndrome" now has been on TPN and starting colear liquids FHx: unknown because adopted 12/27/[address] IMPRESSION: 1. Abnormal appearance of the GI tract. There is prominent fluid-filled dilated small bowel and stomach, most likely representing distal small bowel obstruction. 2. Moderate intrahepatic biliary dilatation of uncertain etiology. Please correlate with liver enzymes and bilirubin levels. IMPRESSION: recent low plt count likely was "shock bone marrow" related to peritonitis now "reactive" high plt count while recovering r/o iron defic recent moderately severe anemia likely due to acute illness and perioperative bleeding he may have myeloproliferative disorder, but doubt REC: labs to include iron, TIBC, Hgb electophoresis Lovenox 40mg daily while hospitalized-->no anticoag after discharge no intervention for high plt count consider IVC iron if iron defic is confirmed; or else consider RBC transfusion for severe anemia Vital Signs Temp Pulse Resp BP Pulse Ox 97.5 F L 118 H 17 111/62 98 01/11/20 20:31 01/11/20 20:31 01/11/20 20:42 01/11/20 20:31 01/11/20 20:31 Temperature -Last 24 Hours Temperature 97.5 F Temperature 98.7 F Temperature 99.4 F Active Medications Enoxaparin Sodium (Enoxaparin) 40 mg SUB-Q QDAY@2200 SUSAN; Protocol Last Admin: 01/11/20 21:38 Dose: 40 mg Documented by: Ceftriaxone Sodium (Rocephin/Ns 2 Gm/100 Ml) 2 gm in 100 mls @ 200 mls/hr IV Q24HR SUSAN; Protocol Last Admin: 01/11/20 10:25 Dose: 200 mls/hr Documented by: Fluconazole (Diflucan) 200 mg in 100 mls @ 100 mls/hr IV Q24HR SUSAN; Protocol Last Admin: 01/11/20 10:25 Dose: 100 mls/hr Documented by: Metronidazole (Flagyl 500 Mg/100 Ml) 500 mg in 100 mls @ 100 mls/hr IV Q8HR SUSAN; Protocol Last Admin: 01/11/20 21:38 Dose: 100 mls/hr Documented by: Laboratory Last Values WBC 13.4 K/mm3 (4.5-11.0) H 01/11/20 11:15 Hgb 7.6 gm/dl (11.8-15.2) L 01/11/20 11:15 Hct 22.1 % (35.5-45.6) L 01/11/20 11:15 Plt Count 958 K/mm3 (140-440) H 01/11/20 11:15 Seg Neutrophils % 84.5 % (40.0-70.0) H 01/11/20 11:15 Creatinine 0.7 mg/dL (0.8-1.3) L 01/11/20 09:20 Total Bilirubin 1.50 mg/dL (0.1-1.2) H 01/11/20 09:20 Direct Bilirubin 1.3 mg/dL (0-0.2) H 01/08/20 08:30 ALT 61 units/L (7-56) H 01/11/20 09:20 Alkaline Phosphatase 177 units/L (35-129) H 01/11/20 09:20 Albumin 2.5 g/dL (3.9-5) L 01/11/20 09:20 y: Past History Past Medical History: other (Wilms tumor s/p nephrectomry and radiation) Past Surgical History: Other (hx of right nephrectomy and adjunctive therapy) Social history: no significant social history Family history: no significant family history Medications and Allergies Allergies Allergy/AdvReac Type Severity Reaction Status Date / Time No Known Allergies Allergy Unverified 12/27/19 11:57 Home Medications Medication Instructions Recorded Confirmed Last Taken Type No Known Home Medications [No 01/09/20 01/09/20 Unknown History Reported Home Medications] Active Meds: Active Medications Acetaminophen (Tylenol) 650 mg PO Q4H PRN PRN Reason: Pain MILD(1-3)/Fever >100.5/LAZCANO Last Admin: 01/09/20 05:55 Dose: 650 mg Documented by: Alprazolam (Xanax) 0.5 mg PO Q8H PRN PRN Reason: Anxiety Last Admin: 01/11/20 21:38 Dose: 0.5 mg Documented by: Enoxaparin Sodium (Enoxaparin) 40 mg SUB-Q QDAY@2200 SUSAN; Protocol Last Admin: 01/11/20 21:38 Dose: 40 mg Documented by: Hydromorphone HCl (Dilaudid) 0.5 mg IV Q4H PRN PRN Reason: Pain , Severe (7-10) Last Admin: 01/11/20 18:48 Dose: 0.5 mg Documented by: Hydrophilic Ointment (Vaseline Lip Therapy) 1 applic TP Q2HR PRN PRN Reason: Dry Lips Sodium Chloride (Nacl 0.9% 1000 Ml) 1,000 mls @ 42 mls/hr IV DIRECT SUSAN Last Admin: 01/11/20 18:49 Dose: 42 mls/hr Documented by: Ceftriaxone Sodium (Rocephin/Ns 2 Gm/100 Ml) 2 gm in 100 mls @ 200 mls/hr IV Q24HR SUSAN; Protocol Last Admin: 01/11/20 10:25 Dose: 200 mls/hr Documented by: Fluconazole (Diflucan) 200 mg in 100 mls @ 100 mls/hr IV Q24HR SUSAN; Protocol Last Admin: 01/11/20 10:25 Dose: 100 mls/hr Documented by: Metronidazole (Flagyl 500 Mg/100 Ml) 500 mg in 100 mls @ 100 mls/hr IV Q8HR SUSAN; Protocol Last Admin: 01/11/20 21:38 Dose: 100 mls/hr Documented by: Amino Acids/Electrolytes/Dextrose (Tpn Adult) 2,000 mls @ 0 mls/hr IV DAILY@2000 SUSAN; Protocol Stop: 01/12/20 08:01 Last Admin: 01/11/20 21:43 Dose: 190 mls/hr Documented by: Fat Emulsion Intravenous (Intralipid 20%) 250 mls @ 21 mls/hr IV DAILY@1999 [facility] Stop: 01/12/20 08:00 Last Admin: 01/11/20 21:42 Dose: 21 mls/hr Documented by: Multi-Ingred Cream/Lotion/Oil/Oint (Artificial Tears Ophth Oint) 1 applic OU Q4HR PRN PRN Reason: Dry Eye(s) Nicotine (Habitrol) 21 mg TD QDAY [facility] Last Admin: 01/11/20 10:26 Dose: 21 mg Documented by: Ondansetron HCl (Zofran) 4 mg IV Q3H PRN PRN Reason: Nausea And Vomiting Last Admin: 01/02/20 21:44 Dose: 4 mg Documented by: Pantoprazole Sodium (Protonix) 40 mg IV QDAY [facility] Last Admin: 01/11/20 10:25 Dose: 40 mg Documented by: Sodium Chloride (Sodium Chloride Flush Syringe 10 Ml) 10 ml IV BID [facility] Last Admin: 01/11/20 22:09 Dose: 10 ml Documented by: Sodium Chloride (Sodium Chloride Flush Syringe 10 Ml) 10 ml IV PRN PRN PRN Reason: LINE FLUSH Last Admin: 12/29/19 10:40 Dose: 10 ml Documented by: Exam - Constitutional Vitals: Temp Pulse Resp BP Pulse Ox 97.5 F L 118 H 17 111/62 98 01/11/20 20:31 01/11/20 20:31 01/11/20 20:42 01/11/20 20:31 01/11/20 20:31 Results - Labs CBC & Chem 7: 01/11/20 11:15 01/11/20 09:20 Labs: Abnormal lab results 01/11/20 01/11/20 01/11/20 Range/Units 09: 09:20 11:15 WBC 18.0 H 13.4 H (4.5-11.0) K/mm3 RBC 2.01 L 2.60 L (3.65-5.03) M/mm3 Hgb 5.8 L* 7.6 L (11.8-15.2) gm/dl Hct 17.0 L* D 22.1 L (35.5-45.6) % Plt Count 1327 H* 958 H (140-440) K/mm3 Lymph % (Auto) 7.1 L 5.6 L (13.4-35.0) % [place] % (Auto) 10.6 H 8.8 H (0.0-7.3) % Lymph # (Auto) 0.8 L (1.2-5.4) K/mm3 [place] # (Auto) 1.9 H 1.2 H (0.0-0.8) K/mm3 Seg Neutrophils % 81.1 H 84.5 H (40.0-70.0) % Seg Neutrophils # 14.6 H 11.4 H (1.8-7.7) K/mm3 Chloride 97.3 L (98-107) mmol/L BUN 26 H (9-20) mg/dL Creatinine 0.7 L (0.8-1.3) mg/dL POC Glucose (70-105) Total Bilirubin 1.50 H (0.1-1.2) mg/dL ALT 61 H (7-56) units/L Alkaline Phosphatase 177 H (35-129) units/L Albumin 2.5 L (3.9-5) g/dL 01/11/20 Range/Units 12:31 WBC (4.5-11.0) K/mm3 RBC (3.65-5.03) M/mm3 Hgb (11.8-15.2) gm/dl Hct (35.5-45.6) % Plt Count (140-440) K/mm3 Lymph % (Auto) (13.4-35.0) % [place] % (Auto) (0.0-7.3) % Lymph # (Auto) (1.2-5.4) K/mm3 [place] # (Auto) (0.0-0.8) K/mm3 Seg Neutrophils % (40.0-70.0) % Seg Neutrophils # (1.8-7.7) K/mm3 Chloride (98-107) mmol/L BUN (9-20) mg/dL Creatinine (0.8-1.3) mg/dL POC Glucose 114 H (70-105) Total Bilirubin (0.1-1.2) mg/dL ALT (7-56) units/L Alkaline Phosphatase (35-129) units/L Albumin (3.9-5) g/dL
[2020-01-12 01:36] LABS: Basophils # (Auto) 0.1 K/mm3 (0.0-0.1); Basophils % (Auto) 0.5 % (0.0-1.8); Eosinophils # (Auto) 0.1 K/mm3 (0.0-0.4); Eosinophils % (Auto) 0.8 % (0.0-4.3); Hemoglobin 8.5 gm/dl (11.8-15.2); Lymphocytes # (Auto) 1.1 K/mm3 (1.2-5.4); Lymphocytes % (Auto) 7.9 % (13.4-35.0); Mean Corpuscular HGB Conc 34 % (32-34); Mean Corpuscular Volume 85 fl (84-94); Monocytes # (Auto) 1.4 K/mm3 (0.0-0.8); Monocytes % (Auto) 10.1 % (0.0-7.3); Red Blood Count 2.94 M/mm3 (3.65-5.03); Red Cell Distribution Width 14.5 % (13.2-15.2)
[2020-01-12 02:03] LABS: Alanine Aminotransferase 53 units/L (7-56); Albumin 2.6 g/dL (3.9-5); Blood Urea Nitrogen 25 mg/dL (9-20); Calcium 8.8 mg/dL (8.4-10.2); Hemolysis Index 1
[2020-01-12 02:04] LABS: BUN/Creatinine Ratio 36
[2020-01-12 02:18] LABS: Platelet Count 1088 K/mm3 (140-440)
[2020-01-12] MEDS: HYDROmorphone 1 MG/1 ML INJ IV PRN ×4 (03:10→23:06)
[2020-01-12] MEDS: ALPRAZolam 0.5 MG TAB PO PRN (06:18)
[2020-01-12] MEDS: metroNIDAZOLE/NS 500 MG/100 ML 500 MG/100 ML BAG IV SCH ×3 (06:18→21:21)
--- NOTE | 2020-01-12 06:23 | Progress Note ---
Assessment and Plan POD 03/14/10 VSS AF, appreciate Hematology input, IR peritoneal fluid cultures negative to date, appreciate INF DZ input, significantly less ostomy output with patient being NPO except ice chips, abd wound and ostomies seen late last pm, w ounds OK, on antibx and lovenox for high plt count, PT on board, TPN cycling, continue present treatment, application for Medicaid in progress, little role for any further surgery at this time, but a very complex case in terms of next step in operative management of ischemic comprimized small bowel and any further surgical correction. Port in place and patient will need education on access for TPN,etc. Subjective Date of service: 01/12/20 Patient Reports: Positive: no new complaints Objective Vital Signs - 12hr 01/11/20 01/11/20 01/11/20 19:18 20:31 20:42 Temperature 97.5 F L Pulse Rate 118 H Respiratory 19 17 Rate Respiratory 17 Rate [Abdomen] Blood Pressure 111/62 O2 Sat by Pulse 98 Oximetry 01/11/20 01/12/20 01/12/20 23:58 00:08 00:28 Temperature 100.2 F H Pulse Rate 118 H Respiratory 16 17 17 Rate Respiratory Rate [Abdomen] Blood Pressure 111/68 O2 Sat by Pulse 97 Oximetry 01/12/20 01/12/20 01/12/20 00:30 03:10 03:14 Temperature 99.7 F H 98.8 F Pulse Rate 100 H Respiratory 17 Rate Respiratory Rate [Abdomen] Blood Pressure O2 Sat by Pulse Oximetry - Labs 01/12/20 01:15 01/12/20 01:15 Diabetes panel 01/11/20 01/12/20 Range/Units 09:20 01:15 Sodium 141 139 (137-145) mmol/L Potassium 4.3 4.1 (3.6-5.0) mmol/L Chloride 97.3 L 97.8 L (98-107) mmol/L Carbon Dioxide 28 26 (22-30) mmol/L BUN 26 H 25 H (9-20) mg/dL Creatinine 0.7 L 0.7 L (0.8-1.3) mg/dL Glucose 100 103 H (75-100) mg/dL Calcium 8.7 8.8 (8.4-10.2) mg/dL AST 40 38 (5-40) units/L ALT 61 H 53 (7-56) units/L Alkaline Phosphatase 177 H 177 H (35-129) units/L Total Protein 6.5 6.6 (6.3-8.2) g/dL Albumin 2.5 L 2.6 L (3.9-5) g/dL Calcium panel 01/11/20 01/11/20 01/12/20 Range/Units 09: 09:20 01:15 Calcium 8.7 8.8 (8.4-10.2) mg/dL Phosphorus 3.60 (2.5-4.5) mg/dL Albumin 2.5 L 2.6 L (3.9-5) g/dL Pituitary panel 01/11/20 01/12/20 Range/Units 09: 01:15 Sodium 141 139 (137-145) mmol/L Potassium 4.3 4.1 (3.6-5.0) mmol/L Chloride 97.3 L 97.8 L (98-107) mmol/L Carbon Dioxide 28 26 (22-30) mmol/L BUN 26 H 25 H (9-20) mg/dL Creatinine 0.7 L 0.7 L (0.8-1.3) mg/dL Glucose 100 103 H (75-100) mg/dL Calcium 8.7 8.8 (8.4-10.2) mg/dL Adrenal panel 01/11/20 01/12/20 Range/Units 09: 01:15 Sodium 141 139 (137-145) mmol/L Potassium 4.3 4.1 (3.6-5.0) mmol/L Chloride 97.3 L 97.8 L (98-107) mmol/L Carbon Dioxide 28 26 (22-30) mmol/L BUN 26 H 25 H (9-20) mg/dL Creatinine 0.7 L 0.7 L (0.8-1.3) mg/dL Glucose 100 103 H (75-100) mg/dL Calcium 8.7 8.8 (8.4-10.2) mg/dL Total Bilirubin 1.50 H 1.10 (0.1-1.2) mg/dL AST 40 38 (5-40) units/L ALT 61 H 53 (7-56) units/L Alkaline Phosphatase 177 H 177 H (35-129) units/L Total Protein 6.5 6.6 (6.3-8.2) g/dL Albumin 2.5 L 2.6 L (3.9-5) g/dL
[2020-01-12 06:29] LABS: Hematocrit 24.2 % (35.5-45.6); Hemoglobin 8.2 gm/dl (11.8-15.2); Mean Corpuscular HGB Conc 34 % (32-34); Mean Corpuscular Volume 84 fl (84-94); Red Blood Count 2.88 M/mm3 (3.65-5.03); Red Cell Distribution Width 14.3 % (13.2-15.2)
[2020-01-12 06:32] LABS: Platelet Count 1031 K/mm3 (140-440)
[2020-01-12 06:47] LABS: Iron 22 ug/dL (49-181); Total Iron Binding Capacity 164 mcg/dL (250-450)
[2020-01-12] MEDS: cefTRIAXone/NS 2 GM/100 ML 2 GM/100 ML BAG IV SCH (10:15)
[2020-01-12] MEDS: PANTOPRAZOLE 40 MG INJ IV SCH (10:53)
[2020-01-12] MEDS: FLUCONAZOLE 200 MG 200 MG/100 ML BAG IV SCH (11:00)
[2020-01-12] MEDS: NICOTINE 21 MG/24 HR PATCH TD SCH (11:52)
[2020-01-12] MEDS ORDERED: oxyCODONE /ACETAMINOPHEN 5-325MG TAB PO PRN (13:39)
--- NOTE | 2020-01-12 13:44 | Progress Note ---
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 Patient states for the past 2 days he has had some abdominal distention in the right lower quadrant and crampy 10 out of 10 pain. He has had multiple episodes of nausea and vomiting. Denies fever chills cough cold or congestion. On December 30, [address] showed patient to have free air in colon. Surgical intervention was required. Patient had surgery had partial hemicolectomy during exploratory laparotomy was subsequently intubated and transferred to the intensive care unit. On December 31, 2019 patient returned to the OR for an additional surgery. After initial extubation. Patient was not follow commands agitated unable to really protect airways and therefore was reintubated. 01/02: s/p 2 UNITS OF FFP, Mild improvement in PLT, FOLLOW HIT. Monitor AM labs, Consult Dr Kendall if plt continues to drop. Low grade fever noted, will monitor, Room changed to better monitor risk of fall as patient still with some lethargy. ABG checked yesterday, did not reflect elevated CO2 01/03: Patient clinically stable showing some improvement. Continues on TPN. Continue to monitor for bowel movement. Still very lethargic. Platelets improving up to 61. Continue to await HIT results. Continue aggressive physical therapy. 01/04: Continue agressive Physical therapy, per surgery Continue NPO to allow ischemic bowel to resolve, hold chemical DVT prophylaxis till platelets greater than 100K, Continue TPN. serial labs, patient will need port for TPN at home, will not advance diet until bowel ischemia resolves which can probably be done Tuesday, that is adv to clears. Continue antibiotics, if fever increases repeat CT abd pelvis, not really indicated at this point. Need to wean sedation ( haldol etc), needs PT to help mobilize. Labs checked today platelet has improved anticipate port to be placed on Tuesday. Continue to hold heparin. SCDs placed 01/05: Continues to clinically improve. Discussed with surgeon today Only about 4FT small bowel left following surgery. Patient will need TPN for a long time. Anticipate port placement for tomorrow 01/06: Surgeon advancing diet to clear liquid today to see how the patient tolerates. Case management still working on health insurance application for the patient. Patient understands longer to recovery. Continue physical therapy to strengthen the patient as he may end up going home. Awaiting labs for this morning if white count continues to increase will obtain ID consultation to rule out any underlying infection. Blood is noted at this time on overview. Await repeat CT abdomen and pelvis with IV contrast. Port placement per surgeon when no evidence of systemic infection. Continue pain control. Thrombocytopenia has resolved if HIT result is negative will resume chemical prophylaxis. Plan of care discussed with the patient and nursing staff at bedside. 01/07. Diet advanced to clear liquid yesterday. CT abdomen and pelvis performed showed possible intraperitoneal fluid collection. CT guided drainage ordered today. WBC 12.9. Phosphorus level 12?. Will repeat CMP and phosphorus. 01/08. Plan for CT-guided drainage with port placement. IR has been consulted for this. ID consulted for possible intra-abdominal infection. Patient started on IV antibiotics. Labs reviewed. He request for pain and antianxiety medications this morning. 01/09. He feels better today. Antianxiety medication prescribed made him sleep well. His port has been placed. Cultures from peritoneum shows no organism yet. 01/10. He has some abdominal discomfort. He is on pain medications. Labs reviewed showed thrombocythemia. Hematology oncology has been consulted. 01/11. Started him on oral medications [extended-release oxycodone] to see if pain can be better controlled. Needs to have insurance-Medicaid. Discussed with family independence case manager. He will need to have TPN at discharge. Hematology oncology recommendations appreciated-thrombocytopenia likely reactionary. Continue to monitor for now Problems (1) Small bowel obstruction Current Visit: Yes Status: Acute Plan to address problem: Status post exploratory lap x3. C surgery note. Some ischemic bowel. S/P Hemicolectomy. Fistula washed out. CT abdomen and pelvis shows intraperitoneal fluid collection. Now s/p CT-guided paracentesis. Culture negative Monitor vital signs and labs. ID on board. Patient started on ceftriaxone, Flagyl and fluconazole for possible intra-abdominal infection (2) Dehydration Current Visit: Yes Status: Resolved Plan to address problem: Patient well-hydrated (3) Acute Metabolic Encephalopathy with subsequent acute respiratory failure Resolved (4) Metabolic acidosis Current Visit: Yes Status: Acute Plan to address problem: Resolved (5) ANEMIA -precipitous drop in hemoglobin Continue to monitor hemoglobin-hemoglobin today 7.6 Iron supplements (6) Thrombocythemia Initially had thrombocytopenia and there was a concern for HIT blood test was negative Now has been thrombocythemia with platelet count up to 900s. This is likely reactive. Hematology oncology recommendations appreciated (7) Severe protein calorie malnutrition cachexia On tpn. Clear liquid diet for now As per surgery, will be going home with TPN temporarily (8) DVT prophylaxis Current Visit: Yes Status: Acute Plan to address problem: Lovenox 40 mg daily. History Interval history: Patient seen and examined at bedside this morning. Complains of abdominal pain. Started on oral pain medication. Labs showed increasing platelets. Hematology oncology recs appreciated. Hospitalist Physical - Constitutional Vitals: Temp Pulse Resp BP Pulse Ox 98.9 F 114 H 24 103/67 99 01/12/20 11:32 01/12/20 11:32 01/12/20 11:32 01/12/20 11:32 01/12/20 11:32 General appearance: Present: no acute distress - EENT Eyes: Present: PERRL - Respiratory Respiratory: bilateral: CTA - Cardiovascular Heart Sounds: Present: S1 & S2 - Extremities Extremities: No edema - Abdominal General gastrointestinal: soft, tender, non-distended, normal bowel sounds - Psychiatric Psychiatric: appropriate mood/affect - Neurologic Neurologic: CNII-XII intact Results - Labs CBC & Chem 7: 01/12/20 06:15 01/12/20 01:15 Labs: Laboratory Last Values WBC 13.5 K/mm3 (4.5-11.0) H 01/12/20 06:15 RBC 2.88 M/mm3 (3.65-5.03) L 01/12/20 06:15 Hgb 8.2 gm/dl (11.8-15.2) L 01/12/20 06:15 Hct 24.2 % (35.5-45.6) L 01/12/20 06:15 MCV 84 fl (84-94) 01/12/20 06:15 MCH 28 pg (28-32) 01/12/20 06:15 MCHC 34 % (32-34) 01/12/20 06:15 RDW 14.3 % (13.2-15.2) 01/12/20 06:15 Plt Count 1031 K/mm3 (140-440) H* 01/12/20 06:15 Lymph % (Auto) 7.9 % (13.4-35.0) L 01/12/20 01:15 [place] % (Auto) 10.1 % (0.0-7.3) H 01/12/20 01:15 Eos % (Auto) 0.8 % (0.0-4.3) 01/12/20 01:15 Baso % (Auto) 0.5 % (0.0-1.8) 01/12/20 01:15 Lymph # (Auto) 1.1 K/mm3 (1.2-5.4) L 01/12/20 01:15 [place] # (Auto) 1.4 K/mm3 (0.0-0.8) H 01/12/20 01:15 Eos # (Auto) 0.1 K/mm3 (0.0-0.4) 01/12/20 01:15 Baso # (Auto) 0.1 K/mm3 (0.0-0.1) 01/12/20 01:15 Add Manual Diff Complete 01/05/20 09:17 Total Counted 100 01/05/20 09:17 Seg Neutrophils % 80.7 % (40.0-70.0) H 01/12/20 01:15 Seg Neuts % (Manual) 97.0 % (40.0-70.0) H 01/05/20 09:17 Band Neutrophils % 0 % 01/05/20 09:17 Lymphocytes % (Manual) 0 % (13.4-35.0) L 01/05/20 09:17 Reactive Lymphs % (Man) 0 % 01/05/20 09:17 Monocytes % (Manual) 2.0 % (0.0-7.3) 01/05/20 09:17 Eosinophils % (Manual) 1.0 % (0.0-4.3) 01/05/20 09:17 Basophils % (Manual) 0 % (0.0-1.8) 01/05/20 09:17 Metamyelocytes % 0 % 01/05/20 09:17 Myelocytes % 0 % 01/05/20 09:17 Promyelocytes % 0 % 01/05/20 09:17 Blast Cells % 0 % 01/05/20 09:17 Nucleated RBC % Not Reportable 01/05/20 09:17 Seg Neutrophils # 11.6 K/mm3 (1.8-7.7) H 01/12/20 01:15 Seg Neutrophils # Man 11.7 K/mm3 (1.8-7.7) H 01/05/20 09:17 Band Neutrophils # 0.0 K/mm3 01/05/20 09:17 Lymphocytes # (Manual) 0.0 K/mm3 (1.2-5.4) L 01/05/20 09:17 Abs React Lymphs (Man) 0.0 K/mm3 01/05/20 09:17 Monocytes # (Manual) 0.2 K/mm3 (0.0-0.8) 01/05/20 09:17 Eosinophils # (Manual) 0.1 K/mm3 (0.0-0.4) 01/05/20 09:17 Basophils # (Manual) 0.0 K/mm3 (0.0-0.1) 01/05/20 09:17 Metamyelocytes # 0.0 K/mm3 01/05/20 09:17 Myelocytes # 0.0 K/mm3 01/05/20 09:17 Promyelocytes # 0.0 K/mm3 01/05/20 09:17 Blast Cells # 0.0 K/mm3 01/05/20 09:17 WBC Morphology Not Reportable 01/05/20 09:17 Hypersegmented Neuts Not Reportable 01/05/20 09:17 Hyposegmented Neuts Not Reportable 01/05/20 09:17 Hypogranular Neuts Not Reportable 01/05/20 09:17 Smudge Cells Not Reportable 01/05/20 09:17 Toxic Granulation Not Reportable 01/05/20 09:17 Toxic Vacuolation Not Reportable 01/05/20 09:17 Dohle Bodies Not Reportable 01/05/20 09:17 Pelger-Huet Anomaly Not Reportable 01/05/20 09:17 Anuradha Rods Not Reportable 01/05/20 09:17 Platelet Estimate Consistent w auto 01/05/20 09:17 Clumped Platelets Not Reportable 01/05/20 09:17 Plt Clumps, EDTA Not Reportable 01/05/20 09:17 Large Platelets Not Reportable 01/05/20 09:17 Giant Platelets Not Reportable 01/05/20 09:17 Platelet Satelliting Not Reportable 01/05/20 09:17 Plt Morphology Comment Not Reportable 01/05/20 09:17 RBC Morphology Not Reportable 01/05/20 09:17 Dimorphic RBCs Not Reportable 01/05/20 09:17 Polychromasia Not Reportable 01/05/20 09:17 Hypochromasia Not Reportable 01/05/20 09:17 Poikilocytosis Not Reportable 01/05/20 09:17 Anisocytosis Few 01/05/20 09:17 Microcytosis Not Reportable 01/05/20 09:17 Macrocytosis Not Reportable 01/05/20 09:17 Spherocytes Not Reportable 01/05/20 09:17 Pappenheimer Bodies Not Reportable 01/05/20 09:17 Sickle Cells Not Reportable 01/05/20 09:17 Target Cells 1+ 01/05/20 09:17 Tear Drop Cells Not Reportable 01/05/20 09:17 Ovalocytes Not Reportable 01/05/20 09:17 Helmet Cells Not Reportable 01/05/20 09:17 [place] Bodies Not Reportable 01/05/20 09:17 [place] Rings Not Reportable 01/05/20 09:17 [place] Cells Not Reportable 01/05/20 09:17 Bite Cells Not Reportable 01/05/20 09:17 Crenated Cell Not Reportable 01/05/20 09:17 Elliptocytes Not Reportable 01/05/20 09:17 Acanthocytes (Spur) Not Reportable 01/05/20 09:17 Rouleaux Not Reportable 01/05/20 09:17 Hemoglobin C Crystals Not Reportable 01/05/20 09:17 Schistocytes Not Reportable 01/05/20 09:17 Malaria parasites Not Reportable 01/05/20 09:17 Christ Bodies Not Reportable 01/05/20 09:17 Hem Pathologist Commnt No 01/05/20 09:17 PT 14.8 Sec. (12.2-14.9) 01/08/20 19:18 INR 1.14 (0.87-1.13) H 01/08/20 19:18 APTT 42.2 Sec. (24.2-36.6) H 12/30/19 22:30 Heparin Anti-Xa, Unfract Negative (Negative) 01/03/20 11:08 ABG pH 7.456 pH Units (7.350-7.450) H 01/01/20 05:15 POC ABG pCO2 34.7 mmHg (32.0-48.0) 12/31/19 04:03 ABG pCO2 34.1 mm Hg 01/01/20 05:15 POC ABG pO2 95.1 mmHg (83-108) 12/31/19 04:03 ABG pO2 85.3 mm Hg (80.0-90.0) 01/01/20 05:15 POC ABG HCO3 20.2 12/31/19 04:03 ABG HCO3 23.5 mmol/L (20.0-26.0) 01/01/20 05:15 ABG O2 Saturation 97.1 % (95.0-99.0) 01/01/20 05:15 ABG O2 Content 9.4 (0.0-44) 01/01/20 05:15 POC ABG Base Excess -4.2 12/31/19 04:03 ABG Base Excess -0.3 mmol/L (-2.0-3.0) 01/01/20 05:15 ABG Hemoglobin 6.9 gm/dl (14.0-18.0) L 01/01/20 05:15 ABG Carboxyhemoglobin 1.4 % (0.0-5.0) 01/01/20 05:15 ABG Methemoglobin 0.7 % (0.0-1.5) 01/01/20 05:15 Oxyhemoglobin 95.0 % (95.0-99.0) 01/01/20 05:15 FiO2 35 % 01/01/20 05:15 Sodium 139 mmol/L (137-145) 01/12/20 01:15 Potassium 4.1 mmol/L (3.6-5.0) 01/12/20 01:15 Chloride 97.8 mmol/L (98-107) L 01/12/20 01:15 Carbon Dioxide 26 mmol/L (22-30) 01/12/20 01:15 Anion Gap 19 mmol/L 01/12/20 01:15 BUN 25 mg/dL (9-20) H 01/12/20 01:15 Creatinine 0.7 mg/dL (0.8-1.3) L 01/12/20 01:15 Estimated GFR > 60 ml/min 01/12/20 01:15 BUN/Creatinine Ratio 36 % 01/12/20 01:15 Glucose 103 mg/dL (75-100) H 01/12/20 01:15 POC Glucose 92 (70-105) 01/12/20 11:48 Lactic Acid 1.00 mmol/L (0.7-2.0) 01/05/20 06:35 Calcium 8.8 mg/dL (8.4-10.2) 01/12/20 01:15 Phosphorus 3.80 mg/dL (2.5-4.5) 01/12/20 06:15 Magnesium 2.10 mg/dL (1.7-2.3) 01/12/20 06:15 Iron 22 ug/dL (49-181) L 01/12/20 06:15 TIBC 164 mcg/dL (250-450) L 01/12/20 06:15 Total Bilirubin 1.10 mg/dL (0.1-1.2) 01/12/20 01:15 Direct Bilirubin 1.3 mg/dL (0-0.2) H 01/08/20 08:30 Indirect Bilirubin 1.0 mg/dL 01/08/20 08:30 AST 38 units/L (5-40) 01/12/20 01:15 ALT 53 units/L (7-56) 01/12/20 01:15 Alkaline Phosphatase 177 units/L (35-129) H 01/12/20 01:15 Total Protein 6.6 g/dL (6.3-8.2) 01/12/20 01:15 Albumin 2.6 g/dL (3.9-5) L 01/12/20 01:15 Albumin/Globulin Ratio 0.7 % 01/12/20 01:15 Triglycerides 184 mg/dL (2-149) H 01/09/20 Unknown Lipase 9 units/L (13-60) L 12/29/19 14:29 Serotonin Release Assay See scanned result 01/03/20 11:08 Urine Color Yellow (Yellow) 12/27/19 Unknown Urine Turbidity Clear (Clear) 12/27/19 Unknown Urine pH 5.0 (5.0-7.0) 12/27/19 Unknown Ur Specific [place] > 1.059 (1.003-1.030) H 12/27/19 Unknown Urine Protein 30 mg/dl mg/dL (Negative) 12/27/19 Unknown Urine Glucose (UA) Neg mg/dL (Negative) 12/27/19 Unknown Urine Ketones 20 mg/dL (Negative) 12/27/19 Unknown Urine Blood Mod (Negative) 12/27/19 Unknown Urine Nitrite Neg (Negative) 12/27/19 Unknown Urine Bilirubin Neg (Negative) 12/27/19 Unknown Urine Urobilinogen < 2.0 mg/dL (<2.0) 12/27/19 Unknown Ur Leukocyte Esterase Neg (Negative) 12/27/19 Unknown Urine WBC (Auto) 2.0 /HPF (0.0-6.0) 12/27/19 Unknown Urine RBC (Auto) 28.0 /HPF (0.0-6.0) 12/27/19 Unknown U Epithel Cells (Auto) < 1.0 /HPF (0-13.0) 12/27/19 Unknown Urine Mucus 3+ /HPF 12/27/19 Unknown Fluid Type Paracentesis 01/09/20 Unknown Fluid Color Fauzia 01/09/20 Unknown Fluid Appearance Turbid 01/09/20 Unknown Fluid WBC 3225 /mm3 01/09/20 Unknown Fluid RBC 325 /mm3 01/09/20 Unknown Fluid Seg Neutrophils 87.0 % 01/09/20 Unknown Fluid Lymphocytes 10.0 % 01/09/20 Unknown Fluid Reactive Lymphs 0 % 01/09/20 Unknown Fluid Monocytes 3.0 % 01/09/20 Unknown Fluid Eosinophils 0 % 01/09/20 Unknown Fluid Basophils 0 % 01/09/20 Unknown Heparin-induced Plt Ab Negative (Negative) 01/03/20 11:08 UF Heparin High Dose 4 % Release 01/03/20 11:08 SU UFH Low Dose 0.1 9 % Release 01/03/20 11:08 SU UFH Low Dose 0.5 4 % Release 01/03/20 11:08 Blood Type B POSITIVE 01/12/20 06:15 Antibody Screen Negative 01/12/20 06:15 Crossmatch See Detail 12/29/19 19:52 Microbiology: Microbiology 01/09/20 Unknown Peritoneal Fluid Body Fluid Culture - Preliminary 01/09/20 06:19 Peripheral/Venous Blood Culture - Preliminary NO GROWTH AFTER 72 HOURS 01/09/20 06:25 Peripheral/Venous Blood Culture - Preliminary NO GROWTH AFTER 72 HOURS Azul/IV: Voiding Method Urinal IV Catheter Type [Left Forearm INT / Saline Lock ] IV Catheter Type [Left Hand] INT / Saline Lock IV Catheter Type [Left Wrist] Peripheral IV IV Catheter Type [Right Peripheral IV Forearm] IV Catheter Type [Right Upper PICC Line arm] IV Catheter Type [Right INT / Saline Lock Antecubital] Active Medications - Current Medications Current Medications: Generic Name Dose Route Start Last Admin Trade Name Freq PRN Reason Stop Dose Admin Acetaminophen 650 mg 12/27/19 23:14 01/09/20 05:55 Tylenol PO 650 mg Q4H PRN Administration Pain MILD(1-3)/Fever >100.5/LAZCANO Alprazolam 0.5 mg 01/09/20 11:33 01/12/20 06:18 Xanax PO 0.5 mg Q8H PRN Administration Anxiety Enoxaparin Sodium 40 mg 01/09/20 22:00 01/11/20 21:38 Enoxaparin SUB-Q 40 mg QDAY@2200 SUSAN Administration Protocol Hydromorphone HCl 0.5 mg 01/05/20 10:14 01/12/20 08:53 Dilaudid IV 0.5 mg Q4H PRN Administration Pain , Severe (7-10) Hydrophilic Ointment 1 applic 12/29/19 22:33 Vaseline Lip Therapy TP Q2HR PRN Dry Lips Sodium Chloride 1,000 mls @ 42 mls/hr 01/04/20 22:45 01/11/20 18:49 Nacl 0.9% 1000 Ml IV 42 mls/hr DIRECT SUSAN Administration Ceftriaxone Sodium 2 gm in 100 mls @ 200 mls/hr 01/09/20 15:00 01/11/20 10:25 Rocephin/Ns 2 Gm/100 Ml IV 200 mls/hr Q24HR SUSAN Administration Protocol Fluconazole 200 mg in 100 mls @ 100 mls/hr 01/09/20 16:00 01/11/20 10:25 Diflucan IV 100 mls/hr Q24HR SUSAN Administration Protocol Metronidazole 500 mg in 100 mls @ 100 mls/hr 01/09/20 16:00 01/12/20 06:18 Flagyl 500 Mg/100 Ml IV 100 mls/hr Q8HR SUSAN Administration Protocol Amino Acids/Electrolytes/Dextrose 2,400 mls @ 0 mls/hr 01/12/20 20:00 Tpn Adult IV 01/13/20 08:00 DAILY@1999 [facility] Protocol As Directed Multi-Ingred Cream/Lotion/Oil/Oint 1 applic 12/29/19 22:33 Artificial Tears Ophth Oint OU Q4HR PRN Dry Eye(s) Nicotine 21 mg 12/31/19 10:00 01/11/20 10:26 Habitrol TD 21 mg QDAY SUSAN Administration Ondansetron HCl 4 mg 12/27/19 23:14 01/02/20 21:44 Zofran IV 4 mg Q3H PRN Administration Nausea And Vomiting Oxycodone HCl 10 mg 01/12/20 22:00 Oxycontin PO Q12HR [facility] Oxycodone/Acetaminophen 1 tab 01/12/20 13:39 Percocet 5/325 PO Q8H PRN Pain, Moderate (4-6) Pantoprazole Sodium 40 mg 01/11/20 10:00 01/11/20 10:25 Protonix IV 40 mg QDAY SUSAN Administration Sodium Chloride 10 ml 12/28/19 10:00 01/11/20 22:09 Sodium Chloride Flush Syringe 10 Ml IV 10 ml BID SUSAN Administration Sodium Chloride 10 ml 12/27/19 23:14 12/29/19 10:40 Sodium Chloride Flush Syringe 10 Ml IV 10 ml PRN PRN Administration LINE FLUSH Nutrition/Malnutrition Assess - Dietary Evaluation Nutrition/Malnutrition Findings: Nutrition Notes Start: 12/30/19 08:57 Freq: Status: Active Protocol: Document 01/12/20 12:38 LM (Rec: 01/12/20 12:43 LM [id number]) Nutrition Notes Initial or Follow up Reassessment Current Diagnosis Malnutrition Other Pertinent Diagnosis SBO s/p hemicolectomy, R nephrectomy, anemia Current Diet 12h Cyclic CPN at 100/180/ 100ml/hr, Cl liq Labs/Tests BUN 25 Pertinent Medications Reviewed Height 5 ft 8 in Weight 62.5 kg [place] Body Weight (kg) 70.00 BMI 20.9 Weight Status Appropriate Subjective/Other Information CPN day 12. CPN fluid increased to 2400ml. Percent of energy/protein needs met: 100%/100% Burn Absent Trauma Absent GI Symptoms None Current % PO Negligible Minimum of two criteria Yes Body Fat Depletion Mild depletion (non-severe) Muscle Mass Mild Depletion (non-severe) Reduced Recycle Driver Strength Measurably Reduced (severe) #2 Nutrition Diagnosis Malnutrition Diagnosis Progress(for reassessment Continues documentation) #1 Nutrition Diagnosis Inadequate oral intake Diagnosis Progress(for reassessment Continues documentation) Is patient on ventilator? No Is Patient Ambulatory and/or Out of Bed No REE-([facility]-confined to bed) 1820.400 Calculation Used for Recommendations [facility] Additional Notes Protein needs 78-94g (1.25-1. 5g/kg) Fluid needs 1ml/kcal Nutrition Intervention Change Diet Order: Continue CPN Nutrition Support: 12 hr cycle CPN at 125/215/ 125ml/hr. Na 175 mEq MVI. Osmolality: 1431 Kcal 1,760 Protein (gm) 100 Carbohydrates (gm) 400 Fat (gm) 0 Fluid (mL) 2,400 Goal #1 Meet at least 75% of energy and protein needs via CPN Goal #2 Weight gain/maintenance Anticipated Discharge Needs: 12 hour cyclic TPN Follow-Up By: 01/13/20 Additional Comments Labs in AM: CMP, Mg, Phos
[2020-01-12] MEDS: oxyCODONE ER 10 MG TAB PO SCH (15:00)
[2020-01-12] MEDS ORDERED: TOTAL PARENTERAL NUTRITION 2,400 ML IV SCH (20:00)
[2020-01-12] MEDS: ENOXAPARIN 40 MG/0.4 ML INJ SUB-Q SCH (21:21)
[2020-01-13 01:35] LABS: Basophils # (Auto) 0.1 K/mm3 (0.0-0.1); Basophils % (Auto) 0.6 % (0.0-1.8); Eosinophils # (Auto) 0.1 K/mm3 (0.0-0.4); Eosinophils % (Auto) 1.1 % (0.0-4.3); Hematocrit 24.5 % (35.5-45.6); Lymphocytes # (Auto) 1.1 K/mm3 (1.2-5.4); Lymphocytes % (Auto) 9.2 % (13.4-35.0); Mean Corpuscular HGB Conc 33 % (32-34); Mean Corpuscular Volume 86 fl (84-94); Monocytes # (Auto) 0.9 K/mm3 (0.0-0.8); Monocytes % (Auto) 7.8 % (0.0-7.3); Red Blood Count 2.85 M/mm3 (3.65-5.03); Red Cell Distribution Width 14.5 % (13.2-15.2)
[2020-01-13 01:42] LABS: Platelet Count 1052 K/mm3 (140-440)
[2020-01-13 01:46] LABS: Alanine Aminotransferase 38 units/L (7-56); Albumin 2.4 g/dL (3.9-5); Blood Urea Nitrogen 21 mg/dL (9-20); Calcium 8.4 mg/dL (8.4-10.2); Hemolysis Index 0
[2020-01-13 01:47] LABS: BUN/Creatinine Ratio 35
[2020-01-13] MEDS: oxyCODONE ER 10 MG TAB PO SCH ×2 (02:35→15:05)
[2020-01-13] MEDS: HYDROmorphone 1 MG/1 ML INJ IV PRN ×4 (04:02→21:35)
[2020-01-13 05:59] LABS: Iron 21 ug/dL (49-181)
[2020-01-13 06:00] LABS: Total Iron Binding Capacity 179 mcg/dL (250-450)
[2020-01-13] MEDS: metroNIDAZOLE/NS 500 MG/100 ML 500 MG/100 ML BAG IV SCH ×3 (06:34→21:26)
[2020-01-13] MEDS: cefTRIAXone/NS 2 GM/100 ML 2 GM/100 ML BAG IV SCH (10:47)
[2020-01-13] MEDS: NICOTINE 21 MG/24 HR PATCH TD SCH (10:48)
[2020-01-13] MEDS: PANTOPRAZOLE 40 MG INJ IV SCH (10:49)
[2020-01-13] MEDS: FLUCONAZOLE 200 MG 200 MG/100 ML BAG IV SCH (10:50)
[2020-01-13] MEDS ORDERED: traMADol 50 MG TAB PO PRN (12:20)
--- NOTE | 2020-01-13 12:23 | Progress Note ---
Assessment and Plan POD 16/03/11 VSS AF, stable overall,ostomy output way down, continue cylcing TPN, educate patient on self administration of TPN at home.peritoneal cultures negative at 72 hours. Need mobilization. Subjective Date of service: 01/13/20 Patient Reports: Positive: no new complaints Objective Vital Signs - 12hr 01/13/20 01/13/20 01/13/20 02:35 04:02 05:17 Temperature 99.6 F Pulse Rate 112 H Respiratory 20 20 18 Rate Blood Pressure 107/69 Blood Pressure [Left] O2 Sat by Pulse 99 Oximetry 01/13/20 01/13/20 07:00 11:00 Temperature 98.6 F 98.5 F Pulse Rate 114 H 102 H Respiratory 21 20 Rate Blood Pressure Blood Pressure 110/66 118/73 [Left] O2 Sat by Pulse 99 99 Oximetry - General physical appearance well developed, well nourished, no distress, severe distress - ENT normal pinna, normal nares, normal mucosa, no hearing loss, no congestion - Neck no masses, no bruits, trachea midline, no lymphadectomy, no venous distension - Respiratory normal expansion, normal respiratory effort, clear to percussion, clear to auscultation - Abdomen soft, bowel sounds hypoactive - Psychiatric oriented to time, oriented to person, oriented to place, speech is normal, memory intact - Labs 01/13/20 01:00 01/13/20 01:00 Diabetes panel 01/13/20 Range/Units 01:00 Sodium 136 L (137-145) mmol/L Potassium 3.9 (3.6-5.0) mmol/L Chloride 100.2 (98-107) mmol/L Carbon Dioxide 24 (22-30) mmol/L BUN 21 H (9-20) mg/dL Creatinine 0.6 L (0.8-1.3) mg/dL Glucose 197 H (75-100) mg/dL Calcium 8.4 (8.4-10.2) mg/dL AST 25 (5-40) units/L ALT 38 (7-56) units/L Alkaline Phosphatase 154 H (35-129) units/L Total Protein 6.1 L (6.3-8.2) g/dL Albumin 2.4 L (3.9-5) g/dL Calcium panel 01/13/20 01/13/20 Range/Units 01:00 01:00 Calcium 8.4 (8.4-10.2) mg/dL Phosphorus 3.60 (2.5-4.5) mg/dL Albumin 2.4 L (3.9-5) g/dL Pituitary panel 01/13/20 Range/Units 01:00 Sodium 136 L (137-145) mmol/L Potassium 3.9 (3.6-5.0) mmol/L Chloride 100.2 (98-107) mmol/L Carbon Dioxide 24 (22-30) mmol/L BUN 21 H (9-20) mg/dL Creatinine 0.6 L (0.8-1.3) mg/dL Glucose 197 H (75-100) mg/dL Calcium 8.4 (8.4-10.2) mg/dL Adrenal panel 01/13/20 Range/Units 01:00 Sodium 136 L (137-145) mmol/L Potassium 3.9 (3.6-5.0) mmol/L Chloride 100.2 (98-107) mmol/L Carbon Dioxide 24 (22-30) mmol/L BUN 21 H (9-20) mg/dL Creatinine 0.6 L (0.8-1.3) mg/dL Glucose 197 H (75-100) mg/dL Calcium 8.4 (8.4-10.2) mg/dL Total Bilirubin 0.90 (0.1-1.2) mg/dL AST 25 (5-40) units/L ALT 38 (7-56) units/L Alkaline Phosphatase 154 H (35-129) units/L Total Protein 6.1 L (6.3-8.2) g/dL Albumin 2.4 L (3.9-5) g/dL
--- NOTE | 2020-01-13 12:28 | Progress Note ---
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 Patient states for the past 2 days he has had some abdominal distention in the right lower quadrant and crampy 10 out of 10 pain. He has had multiple episodes of nausea and vomiting. Denies fever chills cough cold or congestion. On December 30, [address] showed patient to have free air in colon. Surgical intervention was required. Patient had surgery had partial hemicolectomy during exploratory laparotomy was subsequently intubated and transferred to the intensive care unit. On December 31, 2019 patient returned to the OR for an additional surgery. After initial extubation. Patient was not follow commands agitated unable to really protect airways and therefore was reintubated. 01/02: s/p 2 UNITS OF FFP, Mild improvement in PLT, FOLLOW HIT. Monitor AM labs, Consult Dr Kendall if plt continues to drop. Low grade fever noted, will monitor, Room changed to better monitor risk of fall as patient still with some lethargy. ABG checked yesterday, did not reflect elevated CO2 01/03: Patient clinically stable showing some improvement. Continues on TPN. Continue to monitor for bowel movement. Still very lethargic. Platelets improving up to 61. Continue to await HIT results. Continue aggressive physical therapy. 01/04: Continue agressive Physical therapy, per surgery Continue NPO to allow ischemic bowel to resolve, hold chemical DVT prophylaxis till platelets greater than 100K, Continue TPN. serial labs, patient will need port for TPN at home, will not advance diet until bowel ischemia resolves which can probably be done Tuesday, that is adv to clears. Continue antibiotics, if fever increases repeat CT abd pelvis, not really indicated at this point. Need to wean sedation ( haldol etc), needs PT to help mobilize. Labs checked today platelet has improved anticipate port to be placed on Tuesday. Continue to hold heparin. SCDs placed 01/05: Continues to clinically improve. Discussed with surgeon today Only about 4FT small bowel left following surgery. Patient will need TPN for a long time. Anticipate port placement for tomorrow 01/06: Surgeon advancing diet to clear liquid today to see how the patient tolerates. Case management still working on health insurance application for the patient. Patient understands longer to recovery. Continue physical therapy to strengthen the patient as he may end up going home. Awaiting labs for this morning if white count continues to increase will obtain ID consultation to rule out any underlying infection. Blood is noted at this time on overview. Await repeat CT abdomen and pelvis with IV contrast. Port placement per surgeon when no evidence of systemic infection. Continue pain control. Thrombocytopenia has resolved if HIT result is negative will resume chemical prophylaxis. Plan of care discussed with the patient and nursing staff at bedside. 01/07. Diet advanced to clear liquid yesterday. CT abdomen and pelvis performed showed possible intraperitoneal fluid collection. CT guided drainage ordered today. WBC 12.9. Phosphorus level 12?. Will repeat CMP and phosphorus. 01/08. Plan for CT-guided drainage with port placement. IR has been consulted for this. ID consulted for possible intra-abdominal infection. Patient started on IV antibiotics. Labs reviewed. He request for pain and antianxiety medications this morning. 01/09. He feels better today. Antianxiety medication prescribed made him sleep well. His port has been placed. Cultures from peritoneum shows no organism yet. 01/10. He has some abdominal discomfort. He is on pain medications. Labs reviewed showed thrombocythemia. Hematology oncology has been consulted. 01/11. Started him on oral medications [extended-release oxycodone] to see if pain can be better controlled. Needs to have insurance-Medicaid. Discussed with outpatient case manager. He will need to have TPN at discharge. Hematology oncology recommendations appreciated-thrombocytopenia likely reactionary. Continue to monitor for now 01/12. His abdominal pain is better. Switch percocet to tramadol. Awaiting medicaid approval. Still on antibiotics. Problems (1) Small bowel obstruction Current Visit: Yes Status: Acute Plan to address problem: Status post exploratory lap x3. C surgery note. Some ischemic bowel. S/P Hemicolectomy. Fistula washed out. CT abdomen and pelvis shows intraperitoneal fluid collection. Now s/p CT-guided paracentesis. Culture negative Monitor vital signs and labs. ID on board. Patient started on ceftriaxone, Flagyl and fluconazole for possible intra-abdominal infection (2) Dehydration Current Visit: Yes Status: Resolved Plan to address problem: Patient well-hydrated Continue IV hydration (3) Acute Metabolic Encephalopathy with subsequent acute respiratory failure Resolved (4) Metabolic acidosis Current Visit: Yes Status: Acute Plan to address problem: Resolved (5) ANEMIA -precipitous drop in hemoglobin Continue to monitor hemoglobin-hemoglobin today 7.6 Iron supplements (6) Thrombocythemia Initially had thrombocytopenia and there was a concern for HIT blood test was negative Now has been thrombocythemia with platelet count up to 900s. This is likely reactive. Hematology oncology recommendations appreciated (7) Severe protein calorie malnutrition cachexia On tpn. Clear liquid diet for now As per surgery, will be going home with TPN temporarily (8) DVT prophylaxis Current Visit: Yes Status: Acute Plan to address problem: Lovenox 40 mg daily. History Interval history: Patient seen and examined at bedside this morning. His pain is better controlled. Says percocet does not relieve his pain as much. Hospitalist Physical - Constitutional Vitals: Temp Pulse Resp BP Pulse Ox 98.5 F 102 H 20 118/73 99 01/13/20 11:00 01/13/20 11:00 01/13/20 11:00 01/13/20 11:00 01/13/20 11:00 General appearance: Present: no acute distress - EENT Eyes: Present: PERRL - Respiratory Respiratory: bilateral: CTA - Cardiovascular Heart Sounds: Present: S1 & S2 - Abdominal General gastrointestinal: soft, non-distended, normal bowel sounds - Psychiatric Psychiatric: appropriate mood/affect - Neurologic Neurologic: CNII-XII intact Results - Labs CBC & Chem 7: 01/13/20 01:00 01/13/20 01:00 Labs: Laboratory Last Values WBC 11.6 K/mm3 (4.5-11.0) H 01/13/20 01:00 RBC 2.85 M/mm3 (3.65-5.03) L 01/13/20 01:00 Hgb 8.0 gm/dl (11.8-15.2) L 01/13/20 01:00 Hct 24.5 % (35.5-45.6) L 01/13/20 01:00 MCV 86 fl (84-94) 01/13/20 01:00 MCH 28 pg (28-32) 01/13/20 01:00 MCHC 33 % (32-34) 01/13/20 01:00 RDW 14.5 % (13.2-15.2) 01/13/20 01:00 Plt Count 1052 K/mm3 (140-440) H* 01/13/20 01:00 Lymph % (Auto) 9.2 % (13.4-35.0) L 01/13/20 01:00 Craig % (Auto) 7.8 % (0.0-7.3) H 01/13/20 01:00 Eos % (Auto) 1.1 % (0.0-4.3) 01/13/20 01:00 Baso % (Auto) 0.6 % (0.0-1.8) 01/13/20 01:00 Lymph # (Auto) 1.1 K/mm3 (1.2-5.4) L 01/13/20 01:00 Craig # (Auto) 0.9 K/mm3 (0.0-0.8) H 01/13/20 01:00 Eos # (Auto) 0.1 K/mm3 (0.0-0.4) 01/13/20 01:00 Baso # (Auto) 0.1 K/mm3 (0.0-0.1) 01/13/20 01:00 Add Manual Diff Complete 01/05/20 09:17 Total Counted 100 01/05/20 09:17 Seg Neutrophils % 81.3 % (40.0-70.0) H 01/13/20 01:00 Seg Neuts % (Manual) 97.0 % (40.0-70.0) H 01/05/20 09:17 Band Neutrophils % 0 % 01/05/20 09:17 Lymphocytes % (Manual) 0 % (13.4-35.0) L 01/05/20 09:17 Reactive Lymphs % (Man) 0 % 01/05/20 09:17 Monocytes % (Manual) 2.0 % (0.0-7.3) 01/05/20 09:17 Eosinophils % (Manual) 1.0 % (0.0-4.3) 01/05/20 09:17 Basophils % (Manual) 0 % (0.0-1.8) 01/05/20 09:17 Metamyelocytes % 0 % 01/05/20 09:17 Myelocytes % 0 % 01/05/20 09:17 Promyelocytes % 0 % 01/05/20 09:17 Blast Cells % 0 % 01/05/20 09:17 Nucleated RBC % Not Reportable 01/05/20 09:17 Seg Neutrophils # 9.4 K/mm3 (1.8-7.7) H 01/13/20 01:00 Seg Neutrophils # Man 11.7 K/mm3 (1.8-7.7) H 01/05/20 09:17 Band Neutrophils # 0.0 K/mm3 01/05/20 09:17 Lymphocytes # (Manual) 0.0 K/mm3 (1.2-5.4) L 01/05/20 09:17 Abs React Lymphs (Man) 0.0 K/mm3 01/05/20 09:17 Monocytes # (Manual) 0.2 K/mm3 (0.0-0.8) 01/05/20 09:17 Eosinophils # (Manual) 0.1 K/mm3 (0.0-0.4) 01/05/20 09:17 Basophils # (Manual) 0.0 K/mm3 (0.0-0.1) 01/05/20 09:17 Metamyelocytes # 0.0 K/mm3 01/05/20 09:17 Myelocytes # 0.0 K/mm3 01/05/20 09:17 Promyelocytes # 0.0 K/mm3 01/05/20 09:17 Blast Cells # 0.0 K/mm3 01/05/20 09:17 WBC Morphology Not Reportable 01/05/20 09:17 Hypersegmented Neuts Not Reportable 01/05/20 09:17 Hyposegmented Neuts Not Reportable 01/05/20 09:17 Hypogranular Neuts Not Reportable 01/05/20 09:17 Smudge Cells Not Reportable 01/05/20 09:17 Toxic Granulation Not Reportable 01/05/20 09:17 Toxic Vacuolation Not Reportable 01/05/20 09:17 Dohle Bodies Not Reportable 01/05/20 09:17 Pelger-Huet Anomaly Not Reportable 01/05/20 09:17 Anuradha Rods Not Reportable 01/05/20 09:17 Platelet Estimate Consistent w auto 01/05/20 09:17 Clumped Platelets Not Reportable 01/05/20 09:17 Plt Clumps, EDTA Not Reportable 01/05/20 09:17 Large Platelets Not Reportable 01/05/20 09:17 Giant Platelets Not Reportable 01/05/20 09:17 Platelet Satelliting Not Reportable 01/05/20 09:17 Plt Morphology Comment Not Reportable 01/05/20 09:17 RBC Morphology Not Reportable 01/05/20 09:17 Dimorphic RBCs Not Reportable 01/05/20 09:17 Polychromasia Not Reportable 01/05/20 09:17 Hypochromasia Not Reportable 01/05/20 09:17 Poikilocytosis Not Reportable 01/05/20 09:17 Anisocytosis Few 01/05/20 09:17 Microcytosis Not Reportable 01/05/20 09:17 Macrocytosis Not Reportable 01/05/20 09:17 Spherocytes Not Reportable 01/05/20 09:17 Pappenheimer Bodies Not Reportable 01/05/20 09:17 Sickle Cells Not Reportable 01/05/20 09:17 Target Cells 1+ 01/05/20 09:17 Tear Drop Cells Not Reportable 01/05/20 09:17 Ovalocytes Not Reportable 01/05/20 09:17 Helmet Cells Not Reportable 01/05/20 09:17 Aleman-Nettleton Bodies Not Reportable 01/05/20 09:17 [place] Rings Not Reportable 01/05/20 09:17 Kaylie Cells Not Reportable 01/05/20 09:17 Bite Cells Not Reportable 01/05/20 09:17 Crenated Cell Not Reportable 01/05/20 09:17 Elliptocytes Not Reportable 01/05/20 09:17 Acanthocytes (Spur) Not Reportable 01/05/20 09:17 Rouleaux Not Reportable 01/05/20 09:17 Hemoglobin C Crystals Not Reportable 01/05/20 09:17 Schistocytes Not Reportable 01/05/20 09:17 Malaria parasites Not Reportable 01/05/20 09:17 Christ Bodies Not Reportable 01/05/20 09:17 Hem Pathologist Commnt No 01/05/20 09:17 PT 14.8 Sec. (12.2-14.9) 01/08/20 19:18 INR 1.14 (0.87-1.13) H 01/08/20 19:18 APTT 42.2 Sec. (24.2-36.6) H 12/30/19 22:30 Heparin Anti-Xa, Unfract Negative (Negative) 01/03/20 11:08 ABG pH 7.456 pH Units (7.350-7.450) H 01/01/20 05:15 POC ABG pCO2 34.7 mmHg (32.0-48.0) 12/31/19 04:03 ABG pCO2 34.1 mm Hg 01/01/20 05:15 POC ABG pO2 95.1 mmHg (83-108) 12/31/19 04:03 ABG pO2 85.3 mm Hg (80.0-90.0) 01/01/20 05:15 POC ABG HCO3 20.2 12/31/19 04:03 ABG HCO3 23.5 mmol/L (20.0-26.0) 01/01/20 05:15 ABG O2 Saturation 97.1 % (95.0-99.0) 01/01/20 05:15 ABG O2 Content 9.4 (0.0-44) 01/01/20 05:15 POC ABG Base Excess -4.2 12/31/19 04:03 ABG Base Excess -0.3 mmol/L (-2.0-3.0) 01/01/20 05:15 ABG Hemoglobin 6.9 gm/dl (14.0-18.0) L 01/01/20 05:15 ABG Carboxyhemoglobin 1.4 % (0.0-5.0) 01/01/20 05:15 ABG Methemoglobin 0.7 % (0.0-1.5) 01/01/20 05:15 Oxyhemoglobin 95.0 % (95.0-99.0) 01/01/20 05:15 FiO2 35 % 01/01/20 05:15 Sodium 136 mmol/L (137-145) L 01/13/20 01:00 Potassium 3.9 mmol/L (3.6-5.0) 01/13/20 01:00 Chloride 100.2 mmol/L (98-107) 01/13/20 01:00 Carbon Dioxide 24 mmol/L (22-30) 01/13/20 01:00 Anion Gap 16 mmol/L 01/13/20 01:00 BUN 21 mg/dL (9-20) H 01/13/20 01:00 Creatinine 0.6 mg/dL (0.8-1.3) L 01/13/20 01:00 Estimated GFR > 60 ml/min 01/13/20 01:00 BUN/Creatinine Ratio 35 % 01/13/20 01:00 Glucose 197 mg/dL (75-100) H 01/13/20 01:00 POC Glucose 118 (70-105) H 01/13/20 12:28 Lactic Acid 1.00 mmol/L (0.7-2.0) 01/05/20 06:35 Calcium 8.4 mg/dL (8.4-10.2) 01/13/20 01:00 Phosphorus 3.60 mg/dL (2.5-4.5) 01/13/20 01:00 Magnesium 2.20 mg/dL (1.7-2.3) 01/13/20 01:00 Iron 21 ug/dL (49-181) L 01/13/20 05:00 TIBC 179 mcg/dL (250-450) L 01/13/20 05:00 Total Bilirubin 0.90 mg/dL (0.1-1.2) 01/13/20 01:00 Direct Bilirubin 1.3 mg/dL (0-0.2) H 01/08/20 08:30 Indirect Bilirubin 1.0 mg/dL 01/08/20 08:30 AST 25 units/L (5-40) 01/13/20 01:00 ALT 38 units/L (7-56) 01/13/20 01:00 Alkaline Phosphatase 154 units/L (35-129) H 01/13/20 01:00 Total Protein 6.1 g/dL (6.3-8.2) L 01/13/20 01:00 Albumin 2.4 g/dL (3.9-5) L 01/13/20 01:00 Albumin/Globulin Ratio 0.6 % 01/13/20 01:00 Triglycerides 184 mg/dL (2-149) H 01/09/20 Unknown Lipase 9 units/L (13-60) L 12/29/19 14:29 Serotonin Release Assay See scanned result 01/03/20 11:08 Urine Color Yellow (Yellow) 12/27/19 Unknown Urine Turbidity Clear (Clear) 12/27/19 Unknown Urine pH 5.0 (5.0-7.0) 12/27/19 Unknown Ur Specific [place] > 1.059 (1.003-1.030) H 12/27/19 Unknown Urine Protein 30 mg/dl mg/dL (Negative) 12/27/19 Unknown Urine Glucose (UA) Neg mg/dL (Negative) 12/27/19 Unknown Urine Ketones 20 mg/dL (Negative) 12/27/19 Unknown Urine Blood Mod (Negative) 12/27/19 Unknown Urine Nitrite Neg (Negative) 12/27/19 Unknown Urine Bilirubin Neg (Negative) 12/27/19 Unknown Urine Urobilinogen < 2.0 mg/dL (<2.0) 12/27/19 Unknown Ur Leukocyte Esterase Neg (Negative) 12/27/19 Unknown Urine WBC (Auto) 2.0 /HPF (0.0-6.0) 12/27/19 Unknown Urine RBC (Auto) 28.0 /HPF (0.0-6.0) 12/27/19 Unknown U Epithel Cells (Auto) < 1.0 /HPF (0-13.0) 12/27/19 Unknown Urine Mucus 3+ /HPF 12/27/19 Unknown Fluid Type Paracentesis 01/09/20 Unknown Fluid Color Fauzia 01/09/20 Unknown Fluid Appearance Turbid 01/09/20 Unknown Fluid WBC 3225 /mm3 01/09/20 Unknown Fluid RBC 325 /mm3 01/09/20 Unknown Fluid Seg Neutrophils 87.0 % 01/09/20 Unknown Fluid Lymphocytes 10.0 % 01/09/20 Unknown Fluid Reactive Lymphs 0 % 01/09/20 Unknown Fluid Monocytes 3.0 % 01/09/20 Unknown Fluid Eosinophils 0 % 01/09/20 Unknown Fluid Basophils 0 % 01/09/20 Unknown Heparin-induced Plt Ab Negative (Negative) 01/03/20 11:08 UF Heparin High Dose 4 % Release 01/03/20 11:08 SU UFH Low Dose 0.1 9 % Release 01/03/20 11:08 SU UFH Low Dose 0.5 4 % Release 01/03/20 11:08 Blood Type B POSITIVE 01/12/20 06:15 Antibody Screen Negative 01/12/20 06:15 Crossmatch See Detail 12/29/19 19:52 Microbiology: Microbiology 01/09/20 06:19 Peripheral/Venous Blood Culture - Preliminary NO GROWTH AFTER 4 DAYS 01/09/20 06:25 Peripheral/Venous Blood Culture - Preliminary NO GROWTH AFTER 4 DAYS Azul/IV: Voiding Method Urinal IV Catheter Type [Left Forearm INT / Saline Lock ] IV Catheter Type [Left Hand] INT / Saline Lock IV Catheter Type [Left Wrist] Peripheral IV IV Catheter Type [Right Peripheral IV Forearm] IV Catheter Type [Right Upper PICC Line arm] IV Catheter Type [Right INT / Saline Lock Antecubital] Active Medications - Current Medications Current Medications: Generic Name Dose Route Start Last Admin Trade Name Freq PRN Reason Stop Dose Admin Acetaminophen 650 mg 12/27/19 23:14 01/09/20 05:55 Tylenol PO 650 mg Q4H PRN Administration Pain MILD(1-3)/Fever >100.5/LAZCANO Alprazolam 0.5 mg 01/09/20 11:33 01/12/20 06:18 Xanax PO 0.5 mg Q8H PRN Administration Anxiety Enoxaparin Sodium 40 mg 01/09/20 22:00 01/12/20 21:21 Enoxaparin SUB-Q 40 mg QDAY@2200 SUSAN Administration Protocol Hydromorphone HCl 0.5 mg 01/05/20 10:14 01/13/20 10:49 Dilaudid IV 0.5 mg Q4H PRN Administration Pain , Severe (7-10) Hydrophilic Ointment 1 applic 12/29/19 22:33 Vaseline Lip Therapy TP Q2HR PRN Dry Lips Sodium Chloride 1,000 mls @ 42 mls/hr 01/04/20 22:45 01/11/20 18:49 Nacl 0.9% 1000 Ml IV 42 mls/hr DIRECT SUSAN Administration Ceftriaxone Sodium 2 gm in 100 mls @ 200 mls/hr 01/09/20 15:00 01/13/20 10:47 Rocephin/Ns 2 Gm/100 Ml IV 200 mls/hr Q24HR SUSAN Administration Protocol Fluconazole 200 mg in 100 mls @ 100 mls/hr 01/09/20 16:00 01/13/20 10:50 Diflucan IV 100 mls/hr Q24HR SUSAN Administration Protocol Metronidazole 500 mg in 100 mls @ 100 mls/hr 01/09/20 16:00 01/13/20 06:34 Flagyl 500 Mg/100 Ml IV 100 mls/hr Q8HR SUSAN Administration Protocol Amino Acids/Electrolytes/Dextrose 2,400 mls @ 0 mls/hr 01/13/20 20:00 Tpn Adult IV 01/14/20 08:00 DAILY@1999 [facility] Protocol As Directed Multi-Ingred Cream/Lotion/Oil/Oint 1 applic 12/29/19 22:33 Artificial Tears Ophth Oint OU Q4HR PRN Dry Eye(s) Nicotine 21 mg 12/31/19 10:00 01/13/20 10:48 Habitrol TD 21 mg QDAY SUSAN Administration Ondansetron HCl 4 mg 12/27/19 23:14 01/02/20 21:44 Zofran IV 4 mg Q3H PRN Administration Nausea And Vomiting Oxycodone HCl 10 mg 01/12/20 14:00 01/13/20 02:35 Oxycontin PO 10 mg Q12H SUSAN Administration Pantoprazole Sodium 40 mg 01/11/20 10:00 01/13/20 10:49 Protonix IV 40 mg QDAY SUSAN Administration Sodium Chloride 10 ml 12/28/19 10:00 01/13/20 10:48 Sodium Chloride Flush Syringe 10 Ml IV 10 ml BID SUSAN Administration Sodium Chloride 10 ml 12/27/19 23:14 12/29/19 10:40 Sodium Chloride Flush Syringe 10 Ml IV 10 ml PRN PRN Administration LINE FLUSH Tramadol HCl 50 mg 01/13/20 12:20 Ultram PO Q6H PRN Pain, Moderate (4-6) Nutrition/Malnutrition Assess - Dietary Evaluation Nutrition/Malnutrition Findings: Nutrition Notes Start: 12/30/19 08:57 Freq: Status: Active Protocol: Document 01/13/20 10:29 LM (Rec: 01/13/20 10:32 LM [id number]) Nutrition Notes Initial or Follow up Reassessment Current Diagnosis Malnutrition Other Pertinent Diagnosis SBO s/p hemicolectomy, R nephrectomy, anemia Current Diet 12h Cyclic CPN at 125/215/ 125ml/hr Labs/Tests Na 136 Pertinent Medications Reviewed Height 5 ft 8 in Weight 62.5 kg [place] Body Weight (kg) 70.00 BMI 20.9 Weight Status Appropriate Subjective/Other Information CPN day 13. No new changes. Percent of energy/protein needs met: 97%/100% Burn Absent Trauma Absent GI Symptoms None Current % PO Negligible Minimum of two criteria Yes Body Fat Depletion Mild depletion (non-severe) Muscle Mass Mild Depletion (non-severe) Reduced Molding Fitter Strength Measurably Reduced (severe) #2 Nutrition Diagnosis Malnutrition Diagnosis Progress(for reassessment Continues documentation) #1 Nutrition Diagnosis Inadequate oral intake Diagnosis Progress(for reassessment Continues documentation) Is patient on ventilator? No Is Patient Ambulatory and/or Out of Bed No REE-([facility]-confined to bed) 1820.400 Calculation Used for Recommendations [facility] Additional Notes Protein needs 78-94g (1.25-1. 5g/kg) Fluid needs 1ml/kcal Nutrition Intervention Change Diet Order: Continue CPN Nutrition Support: 12 hr cycle CPN at 125/215/ 125ml/hr. Na 200 mEq, K 33 mEq MVI. Osmolality: 1473 Kcal 1,760 Protein (gm) 100 Carbohydrates (gm) 400 Fat (gm) 0 Fluid (mL) 2,400 Goal #1 Meet at least 75% of energy and protein needs via CPN Goal #2 Weight gain/maintenance Anticipated Discharge Needs: 12 hour cyclic TPN Follow-Up By: 01/14/20 Additional Comments Labs in AM: CMP, Mg, Phos
[2020-01-13] MEDS ORDERED: TOTAL PARENTERAL NUTRITION 2,400 ML IV SCH (20:00)
[2020-01-13] MEDS: ENOXAPARIN 40 MG/0.4 ML INJ SUB-Q SCH (21:26)
[2020-01-14] MEDS: HYDROmorphone 1 MG/1 ML INJ IV PRN ×4 (01:39→16:36)
[2020-01-14] MEDS: SODIUM CHLORIDE 0.9% 1000 ML 1,000 ML IV SCH (01:40)
[2020-01-14 02:02] LABS: Basophils # (Auto) 0.1 K/mm3 (0.0-0.1); Basophils % (Auto) 0.9 % (0.0-1.8); Eosinophils # (Auto) 0.1 K/mm3 (0.0-0.4); Eosinophils % (Auto) 1.1 % (0.0-4.3); Hematocrit 21.8 % (35.5-45.6); Hemoglobin 7.3 gm/dl (11.8-15.2); Lymphocytes % (Auto) 9.6 % (13.4-35.0); Mean Corpuscular HGB Conc 34 % (32-34); Mean Corpuscular Volume 86 fl (84-94); Monocytes % (Auto) 9.2 % (0.0-7.3); Platelet Count 856 K/mm3 (140-440); Red Blood Count 2.53 M/mm3 (3.65-5.03); Red Cell Distribution Width 14.7 % (13.2-15.2)
[2020-01-14 02:16] LABS: Alanine Aminotransferase 28 units/L (7-56); Albumin 2.1 g/dL (3.9-5); BUN/Creatinine Ratio 28; Blood Urea Nitrogen 17 mg/dL (9-20); Calcium 7.9 mg/dL (8.4-10.2); Hemolysis Index 1
[2020-01-14] MEDS: oxyCODONE ER 10 MG TAB PO SCH ×2 (03:27→14:26)
[2020-01-14] MEDS: metroNIDAZOLE/NS 500 MG/100 ML 500 MG/100 ML BAG IV SCH ×3 (05:00→22:14)
[2020-01-14] MEDS ORDERED: POTASSIUM CHLORIDE ER 20 MEQ TAB PO SCH (08:00)
[2020-01-14 08:46] LABS: Hematocrit 22.8 % (35.5-45.6); Hemoglobin 7.8 gm/dl (11.8-15.2); Mean Corpuscular HGB Conc 34 % (32-34); Mean Corpuscular Volume 86 fl (84-94); Platelet Count 886 K/mm3 (140-440); Red Blood Count 2.67 M/mm3 (3.65-5.03); Red Cell Distribution Width 14.4 % (13.2-15.2)
--- NOTE | 2020-01-14 09:00 | Progress Note ---
Assessment and Plan POD 14/16/03 VSS AF, less ostomy output, incisions and ostomies OK, need to get ostomy bag education complete, continue cycled TPN, need to educate patient to access port for TPN, consider de-escalating antibiotics at this point. Mobilize. Subjective Date of service: 01/14/20 Patient Reports: Positive: no new complaints Objective Vital Signs - 12hr 01/13/20 01/14/20 01/14/20 22:58 04:52 05:03 Temperature 98.7 F 98.8 F 98.3 F Pulse Rate 103 H 109 H 84 Respiratory 18 18 18 Rate Blood Pressure 105/65 106/66 114/68 O2 Sat by Pulse 100 99 99 Oximetry - Labs 01/14/20 08:29 01/14/20 00:54 Diabetes panel 01/14/20 Range/Units 00:54 Sodium 138 (137-145) mmol/L Potassium 3.4 L (3.6-5.0) mmol/L Chloride 104.9 (98-107) mmol/L Carbon Dioxide 22 (22-30) mmol/L BUN 17 (9-20) mg/dL Creatinine 0.6 L (0.8-1.3) mg/dL Glucose 119 H (75-100) mg/dL Calcium 7.9 L (8.4-10.2) mg/dL AST 18 (5-40) units/L ALT 28 (7-56) units/L Alkaline Phosphatase 130 H (35-129) units/L Total Protein 5.6 L (6.3-8.2) g/dL Albumin 2.1 L (3.9-5) g/dL Calcium panel 01/14/20 Range/Units 00:54 Calcium 7.9 L (8.4-10.2) mg/dL Albumin 2.1 L (3.9-5) g/dL Pituitary panel 01/14/20 Range/Units 00:54 Sodium 138 (137-145) mmol/L Potassium 3.4 L (3.6-5.0) mmol/L Chloride 104.9 (98-107) mmol/L Carbon Dioxide 22 (22-30) mmol/L BUN 17 (9-20) mg/dL Creatinine 0.6 L (0.8-1.3) mg/dL Glucose 119 H (75-100) mg/dL Calcium 7.9 L (8.4-10.2) mg/dL Adrenal panel 01/14/20 Range/Units 00:54 Sodium 138 (137-145) mmol/L Potassium 3.4 L (3.6-5.0) mmol/L Chloride 104.9 (98-107) mmol/L Carbon Dioxide 22 (22-30) mmol/L BUN 17 (9-20) mg/dL Creatinine 0.6 L (0.8-1.3) mg/dL Glucose 119 H (75-100) mg/dL Calcium 7.9 L (8.4-10.2) mg/dL Total Bilirubin 0.80 (0.1-1.2) mg/dL AST 18 (5-40) units/L ALT 28 (7-56) units/L Alkaline Phosphatase 130 H (35-129) units/L Total Protein 5.6 L (6.3-8.2) g/dL Albumin 2.1 L (3.9-5) g/dL
--- NOTE | 2020-01-14 09:21 | Event Note ---
Date: 01/14/20 Reviewed INF DZ note, will d/c antibiotics 01/17/20 -peritoneal cultures negative.
[2020-01-14] MEDS: NICOTINE 21 MG/24 HR PATCH TD SCH (09:45)
[2020-01-14] MEDS: PANTOPRAZOLE 40 MG INJ IV SCH (09:45)
[2020-01-14] MEDS: cefTRIAXone/NS 2 GM/100 ML 2 GM/100 ML BAG IV SCH (09:45)
[2020-01-14] MEDS: ALPRAZolam 0.5 MG TAB PO PRN (09:47)
--- NOTE | 2020-01-14 11:18 | Progress Note ---
Assessment and Plan Assessment and plan: Patient is a 39-year-old F [place]an male with a past medical history of right- sided nephrectomy status post Wilms tumor and appendectomy both of which occurred in the late 80s who is presenting with abdominal pain. Patient states for the past 2 days he has had some abdominal distention in the right lower quadrant and crampy 10 out of 10 pain. He has had multiple episodes of nausea and vomiting. Denies fever chills cough cold or congestion. On December 30, [address] showed patient to have free air in colon. Surgical intervention was required. Patient had surgery had partial hemicolectomy during exploratory laparotomy was subsequently intubated and transferred to the intensive care unit. On December 31, 2019 patient returned to the OR for an additional surgery. After initial extubation. Patient was not follow commands agitated unable to really protect airways and therefore was reintubated. 01/02: s/p 2 UNITS OF FFP, Mild improvement in PLT, FOLLOW HIT. Monitor AM labs, Consult Dr Kendall if plt continues to drop. Low grade fever noted, will monitor, Room changed to better monitor risk of fall as patient still with some lethargy. ABG checked yesterday, did not reflect elevated CO2 01/03: Patient clinically stable showing some improvement. Continues on TPN. Continue to monitor for bowel movement. Still very lethargic. Platelets improving up to 61. Continue to await HIT results. Continue aggressive physical therapy. 01/04: Continue agressive Physical therapy, per surgery Continue NPO to allow ischemic bowel to resolve, hold chemical DVT prophylaxis till platelets greater than 100K, Continue TPN. serial labs, patient will need port for TPN at home, will not advance diet until bowel ischemia resolves which can probably be done Tuesday, that is adv to clears. Continue antibiotics, if fever increases repeat CT abd pelvis, not really indicated at this point. Need to wean sedation ( haldol etc), needs PT to help mobilize. Labs checked today platelet has improved anticipate port to be placed on Tuesday. Continue to hold heparin. SCDs placed 01/05: Continues to clinically improve. Discussed with surgeon today Only about 4FT small bowel left following surgery. Patient will need TPN for a long time. Anticipate port placement for tomorrow 01/06: Surgeon advancing diet to clear liquid today to see how the patient tolerates. Case management still working on health insurance application for the patient. Patient understands longer to recovery. Continue physical therapy to strengthen the patient as he may end up going home. Awaiting labs for this morning if white count continues to increase will obtain ID consultation to rule out any underlying infection. Blood is noted at this time on overview. Await repeat CT abdomen and pelvis with IV contrast. Port placement per surgeon when no evidence of systemic infection. Continue pain control. Thrombocytopenia has resolved if HIT result is negative will resume chemical prophylaxis. Plan of care discussed with the patient and nursing staff at bedside. 01/07. Diet advanced to clear liquid yesterday. CT abdomen and pelvis performed showed possible intraperitoneal fluid collection. CT guided drainage ordered today. WBC 12.9. Phosphorus level 12?. Will repeat CMP and phosphorus. 01/08. Plan for CT-guided drainage with port placement. IR has been consulted for this. ID consulted for possible intra-abdominal infection. Patient started on IV antibiotics. Labs reviewed. He request for pain and antianxiety medications this morning. 01/09. He feels better today. Antianxiety medication prescribed made him sleep well. His port has been placed. Cultures from peritoneum shows no organism yet. 01/10. He has some abdominal discomfort. He is on pain medications. Labs reviewed showed thrombocythemia. Hematology oncology has been consulted. 01/11. Started him on oral medications [extended-release oxycodone] to see if pain can be better controlled. Needs to have insurance-Medicaid. Discussed with special education case manager. He will need to have TPN at discharge. Hematology oncology recommendations appreciated-thrombocytopenia likely reactionary. Continue to monitor for now 01/12. His abdominal pain is better. Switch percocet to tramadol. Awaiting medicaid approval. Still on antibiotics. 01/13. Says percocet works better so will switch. Cultures are still negative. ID following. Plan to dc antibiotics. He will need assistance with TPN as he has no insurance. He applied for medicaid but decision is pending. Problems (1) Small bowel obstruction Current Visit: Yes Status: Acute Plan to address problem: Status post exploratory lap x3. C surgery note. Some ischemic bowel. S/P Hemicolectomy. Fistula washed out. CT abdomen and pelvis shows intraperitoneal fluid collection. Now s/p CT-guided paracentesis. Culture negative Monitor vital signs and labs. ID on board. Patient started on ceftriaxone, Flagyl and fluconazole for possible intra-abdominal infection. Cultures negative so far. (2) Dehydration Current Visit: Yes Status: Resolved Plan to address problem: Patient well-hydrated Continue IV hydration (3) Acute Metabolic Encephalopathy with subsequent acute respiratory failure Resolved (4) Metabolic acidosis Current Visit: Yes Status: Acute Plan to address problem: Resolved (5) ANEMIA -precipitous drop in hemoglobin Continue to monitor hemoglobin-hemoglobin today 7.6 Iron supplements (6) Thrombocythemia Initially had thrombocytopenia and there was a concern for HIT blood test was negative Now has been thrombocythemia with platelet count up to 900s. This is likely reactive. Hematology oncology recommendations appreciated (7) Severe protein calorie malnutrition cachexia On tpn. Clear liquid diet for now As per surgery, will be going home with TPN temporarily (8) DVT prophylaxis Current Visit: Yes Status: Acute Plan to address problem: Lovenox 40 mg daily. History Interval history: Patient seen and examined at bedside this morning. His cultures remain negative. ID is following. Complains of abdominal pain Hospitalist Physical - Constitutional Vitals: Temp Pulse Resp BP Pulse Ox 98.3 F 84 18 114/68 99 01/14/20 05:03 01/14/20 05:03 01/14/20 05:03 01/14/20 05:03 01/14/20 05:03 General appearance: Present: no acute distress - EENT Eyes: Present: PERRL - Respiratory Respiratory: bilateral: CTA - Cardiovascular Rhythm: regular Heart Sounds: Present: S1 & S2 - Extremities Extremities: no ischemia - Abdominal General gastrointestinal: soft, tender, non-distended, normal bowel sounds - Psychiatric Psychiatric: appropriate mood/affect - Neurologic Neurologic: CNII-XII intact Results - Labs CBC & Chem 7: 01/14/20 08:29 01/14/20 00:54 Labs: Laboratory Last Values WBC 10.0 K/mm3 (4.5-11.0) 01/14/20 08:29 RBC 2.67 M/mm3 (3.65-5.03) L 01/14/20 08:29 Hgb 7.8 gm/dl (11.8-15.2) L 01/14/20 08:29 Hct 22.8 % (35.5-45.6) L 01/14/20 08:29 MCV 86 fl (84-94) 01/14/20 08:29 MCH 29 pg (28-32) 01/14/20 08:29 MCHC 34 % (32-34) 01/14/20 08:29 RDW 14.4 % (13.2-15.2) 01/14/20 08:29 Plt Count 886 K/mm3 (140-440) H 01/14/20 08:29 Lymph % (Auto) 9.6 % (13.4-35.0) L 01/14/20 00:54 [place] % (Auto) 9.2 % (0.0-7.3) H 01/14/20 00:54 Eos % (Auto) 1.1 % (0.0-4.3) 01/14/20 00:54 Baso % (Auto) 0.9 % (0.0-1.8) 01/14/20 00:54 Lymph # (Auto) 1.0 K/mm3 (1.2-5.4) L 01/14/20 00:54 [place] # (Auto) 1.0 K/mm3 (0.0-0.8) H 01/14/20 00:54 Eos # (Auto) 0.1 K/mm3 (0.0-0.4) 01/14/20 00:54 Baso # (Auto) 0.1 K/mm3 (0.0-0.1) 01/14/20 00:54 Add Manual Diff Complete 01/05/20 09:17 Total Counted 100 01/05/20 09:17 Seg Neutrophils % 79.2 % (40.0-70.0) H 01/14/20 00:54 Seg Neuts % (Manual) 97.0 % (40.0-70.0) H 01/05/20 09:17 Band Neutrophils % 0 % 01/05/20 09:17 Lymphocytes % (Manual) 0 % (13.4-35.0) L 01/05/20 09:17 Reactive Lymphs % (Man) 0 % 01/05/20 09:17 Monocytes % (Manual) 2.0 % (0.0-7.3) 01/05/20 09:17 Eosinophils % (Manual) 1.0 % (0.0-4.3) 01/05/20 09:17 Basophils % (Manual) 0 % (0.0-1.8) 01/05/20 09:17 Metamyelocytes % 0 % 01/05/20 09:17 Myelocytes % 0 % 01/05/20 09:17 Promyelocytes % 0 % 01/05/20 09:17 Blast Cells % 0 % 01/05/20 09:17 Nucleated RBC % Not Reportable 01/05/20 09:17 Seg Neutrophils # 8.5 K/mm3 (1.8-7.7) H 01/14/20 00:54 Seg Neutrophils # Man 11.7 K/mm3 (1.8-7.7) H 01/05/20 09:17 Band Neutrophils # 0.0 K/mm3 01/05/20 09:17 Lymphocytes # (Manual) 0.0 K/mm3 (1.2-5.4) L 01/05/20 09:17 Abs React Lymphs (Man) 0.0 K/mm3 01/05/20 09:17 Monocytes # (Manual) 0.2 K/mm3 (0.0-0.8) 01/05/20 09:17 Eosinophils # (Manual) 0.1 K/mm3 (0.0-0.4) 01/05/20 09:17 Basophils # (Manual) 0.0 K/mm3 (0.0-0.1) 01/05/20 09:17 Metamyelocytes # 0.0 K/mm3 01/05/20 09:17 Myelocytes # 0.0 K/mm3 01/05/20 09:17 Promyelocytes # 0.0 K/mm3 01/05/20 09:17 Blast Cells # 0.0 K/mm3 01/05/20 09:17 WBC Morphology Not Reportable 01/05/20 09:17 Hypersegmented Neuts Not Reportable 01/05/20 09:17 Hyposegmented Neuts Not Reportable 01/05/20 09:17 Hypogranular Neuts Not Reportable 01/05/20 09:17 Smudge Cells Not Reportable 01/05/20 09:17 Toxic Granulation Not Reportable 01/05/20 09:17 Toxic Vacuolation Not Reportable 01/05/20 09:17 Dohle Bodies Not Reportable 01/05/20 09:17 Pelger-Huet Anomaly Not Reportable 01/05/20 09:17 Anuradha Rods Not Reportable 01/05/20 09:17 Platelet Estimate Consistent w auto 01/05/20 09:17 Clumped Platelets Not Reportable 01/05/20 09:17 Plt Clumps, EDTA Not Reportable 01/05/20 09:17 Large Platelets Not Reportable 01/05/20 09:17 Giant Platelets Not Reportable 01/05/20 09:17 Platelet Satelliting Not Reportable 01/05/20 09:17 Plt Morphology Comment Not Reportable 01/05/20 09:17 RBC Morphology Not Reportable 01/05/20 09:17 Dimorphic RBCs Not Reportable 01/05/20 09:17 Polychromasia Not Reportable 01/05/20 09:17 Hypochromasia Not Reportable 01/05/20 09:17 Poikilocytosis Not Reportable 01/05/20 09:17 Anisocytosis Few 01/05/20 09:17 Microcytosis Not Reportable 01/05/20 09:17 Macrocytosis Not Reportable 01/05/20 09:17 Spherocytes Not Reportable 01/05/20 09:17 Pappenheimer Bodies Not Reportable 01/05/20 09:17 Sickle Cells Not Reportable 01/05/20 09:17 Target Cells 1+ 01/05/20 09:17 Tear Drop Cells Not Reportable 01/05/20 09:17 Ovalocytes Not Reportable 01/05/20 09:17 Helmet Cells Not Reportable 01/05/20 09:17 [place] Bodies Not Reportable 01/05/20 09:17 [place] Rings Not Reportable 01/05/20 09:17 [place] Cells Not Reportable 01/05/20 09:17 Bite Cells Not Reportable 01/05/20 09:17 Crenated Cell Not Reportable 01/05/20 09:17 Elliptocytes Not Reportable 01/05/20 09:17 Acanthocytes (Spur) Not Reportable 01/05/20 09:17 Rouleaux Not Reportable 01/05/20 09:17 Hemoglobin C Crystals Not Reportable 01/05/20 09:17 Schistocytes Not Reportable 01/05/20 09:17 Malaria parasites Not Reportable 01/05/20 09:17 Christ Bodies Not Reportable 01/05/20 09:17 Hem Pathologist Commnt No 01/05/20 09:17 PT 14.8 Sec. (12.2-14.9) 01/08/20 19:18 INR 1.14 (0.87-1.13) H 01/08/20 19:18 APTT 42.2 Sec. (24.2-36.6) H 12/30/19 22:30 Heparin Anti-Xa, Unfract Negative (Negative) 01/03/20 11:08 ABG pH 7.456 pH Units (7.350-7.450) H 01/01/20 05:15 POC ABG pCO2 34.7 mmHg (32.0-48.0) 12/31/19 04:03 ABG pCO2 34.1 mm Hg 01/01/20 05:15 POC ABG pO2 95.1 mmHg (83-108) 12/31/19 04:03 ABG pO2 85.3 mm Hg (80.0-90.0) 01/01/20 05:15 POC ABG HCO3 20.2 12/31/19 04:03 ABG HCO3 23.5 mmol/L (20.0-26.0) 01/01/20 05:15 ABG O2 Saturation 97.1 % (95.0-99.0) 01/01/20 05:15 ABG O2 Content 9.4 (0.0-44) 01/01/20 05:15 POC ABG Base Excess -4.2 12/31/19 04:03 ABG Base Excess -0.3 mmol/L (-2.0-3.0) 01/01/20 05:15 ABG Hemoglobin 6.9 gm/dl (14.0-18.0) L 01/01/20 05:15 ABG Carboxyhemoglobin 1.4 % (0.0-5.0) 01/01/20 05:15 ABG Methemoglobin 0.7 % (0.0-1.5) 01/01/20 05:15 Oxyhemoglobin 95.0 % (95.0-99.0) 01/01/20 05:15 FiO2 35 % 01/01/20 05:15 Sodium 138 mmol/L (137-145) 01/14/20 00:54 Potassium 3.4 mmol/L (3.6-5.0) L 01/14/20 00:54 Chloride 104.9 mmol/L (98-107) 01/14/20 00:54 Carbon Dioxide 22 mmol/L (22-30) 01/14/20 00:54 Anion Gap 15 mmol/L 01/14/20 00:54 BUN 17 mg/dL (9-20) 01/14/20 00:54 Creatinine 0.6 mg/dL (0.8-1.3) L 01/14/20 00:54 Estimated GFR > 60 ml/min 01/14/20 00:54 BUN/Creatinine Ratio 28 % 01/14/20 00:54 Glucose 119 mg/dL (75-100) H 01/14/20 00:54 POC Glucose 159 (70-105) H 01/14/20 05:10 Lactic Acid 1.00 mmol/L (0.7-2.0) 01/05/20 06:35 Calcium 7.9 mg/dL (8.4-10.2) L 01/14/20 00:54 Phosphorus 3.20 mg/dL (2.5-4.5) 01/14/20 08:29 Magnesium 1.90 mg/dL (1.7-2.3) 01/14/20 08:29 Iron 21 ug/dL (49-181) L 01/13/20 05:00 TIBC 179 mcg/dL (250-450) L 01/13/20 05:00 Total Bilirubin 0.80 mg/dL (0.1-1.2) 01/14/20 00:54 Direct Bilirubin 1.3 mg/dL (0-0.2) H 01/08/20 08:30 Indirect Bilirubin 1.0 mg/dL 01/08/20 08:30 AST 18 units/L (5-40) 01/14/20 00:54 ALT 28 units/L (7-56) 01/14/20 00:54 Alkaline Phosphatase 130 units/L (35-129) H 01/14/20 00:54 Total Protein 5.6 g/dL (6.3-8.2) L 01/14/20 00:54 Albumin 2.1 g/dL (3.9-5) L 01/14/20 00:54 Albumin/Globulin Ratio 0.6 % 01/14/20 00:54 Triglycerides 184 mg/dL (2-149) H 01/09/20 Unknown Lipase 9 units/L (13-60) L 12/29/19 14:29 Serotonin Release Assay See scanned result 01/03/20 11:08 Urine Color Yellow (Yellow) 12/27/19 Unknown Urine Turbidity Clear (Clear) 12/27/19 Unknown Urine pH 5.0 (5.0-7.0) 12/27/19 Unknown Ur Specific [place] > 1.059 (1.003-1.030) H 12/27/19 Unknown Urine Protein 30 mg/dl mg/dL (Negative) 12/27/19 Unknown Urine Glucose (UA) Neg mg/dL (Negative) 12/27/19 Unknown Urine Ketones 20 mg/dL (Negative) 12/27/19 Unknown Urine Blood Mod (Negative) 12/27/19 Unknown Urine Nitrite Neg (Negative) 12/27/19 Unknown Urine Bilirubin Neg (Negative) 12/27/19 Unknown Urine Urobilinogen < 2.0 mg/dL (<2.0) 12/27/19 Unknown Ur Leukocyte Esterase Neg (Negative) 12/27/19 Unknown Urine WBC (Auto) 2.0 /HPF (0.0-6.0) 12/27/19 Unknown Urine RBC (Auto) 28.0 /HPF (0.0-6.0) 12/27/19 Unknown U Epithel Cells (Auto) < 1.0 /HPF (0-13.0) 12/27/19 Unknown Urine Mucus 3+ /HPF 12/27/19 Unknown Fluid Type Paracentesis 01/09/20 Unknown Fluid Color Fauzia 01/09/20 Unknown Fluid Appearance Turbid 01/09/20 Unknown Fluid WBC 3225 /mm3 01/09/20 Unknown Fluid RBC 325 /mm3 01/09/20 Unknown Fluid Seg Neutrophils 87.0 % 01/09/20 Unknown Fluid Lymphocytes 10.0 % 01/09/20 Unknown Fluid Reactive Lymphs 0 % 01/09/20 Unknown Fluid Monocytes 3.0 % 01/09/20 Unknown Fluid Eosinophils 0 % 01/09/20 Unknown Fluid Basophils 0 % 01/09/20 Unknown Heparin-induced Plt Ab Negative (Negative) 01/03/20 11:08 UF Heparin High Dose 4 % Release 01/03/20 11:08 SU UFH Low Dose 0.1 9 % Release 01/03/20 11:08 SU UFH Low Dose 0.5 4 % Release 01/03/20 11:08 Blood Type B POSITIVE 01/12/20 06:15 Antibody Screen Negative 01/12/20 06:15 Crossmatch See Detail 12/29/19 19:52 Microbiology: Microbiology 01/09/20 06:19 Peripheral/Venous Blood Culture - Final NO GROWTH AFTER 5 DAYS 01/09/20 06:25 Peripheral/Venous Blood Culture - Final NO GROWTH AFTER 5 DAYS 01/09/20 Unknown Peritoneal Fluid Body Fluid Culture - Final Azul/IV: Voiding Method Urinal IV Catheter Type [Left Forearm INT / Saline Lock ] IV Catheter Type [Left Hand] INT / Saline Lock IV Catheter Type [Left Wrist] Peripheral IV IV Catheter Type [Right Peripheral IV Forearm] IV Catheter Type [Right Upper PICC Line arm] IV Catheter Type [Right INT / Saline Lock Antecubital] Active Medications - Current Medications Current Medications: Generic Name Dose Route Start Last Admin Trade Name Freq PRN Reason Stop Dose Admin Acetaminophen 650 mg 12/27/19 23:14 01/09/20 05:55 Tylenol PO 650 mg Q4H PRN Administration Pain MILD(1-3)/Fever >100.5/LAZCANO Alprazolam 0.5 mg 01/09/20 11:33 01/14/20 09:47 Xanax PO 0.5 mg Q8H PRN Administration Anxiety Enoxaparin Sodium 40 mg 01/09/20 22:00 01/13/20 21:26 Enoxaparin SUB-Q 40 mg QDAY@2200 [facility] Administration Protocol Hydromorphone HCl 0.5 mg 01/05/20 10:14 01/14/20 07:17 Dilaudid IV 0.5 mg Q4H PRN Administration Pain , Severe (7-10) Hydrophilic Ointment 1 applic 12/29/19 22:33 Vaseline Lip Therapy TP Q2HR PRN Dry Lips Ceftriaxone Sodium 2 gm in 100 mls @ 200 mls/hr 01/09/20 15:00 01/14/20 09:45 Rocephin/Ns 2 Gm/100 Ml IV 200 mls/hr Q24HR [facility] Administration Protocol Fluconazole 200 mg in 100 mls @ 100 mls/hr 01/09/20 16:00 01/13/20 10:50 Diflucan IV 100 mls/hr Q24HR [facility] Administration Protocol Metronidazole 500 mg in 100 mls @ 100 mls/hr 01/09/20 16:00 01/14/20 05:00 Flagyl 500 Mg/100 Ml IV 100 mls/hr Q8HR SUSAN Administration Protocol Sodium Chloride 1,000 mls @ 75 mls/hr 01/13/20 12:30 01/14/20 01:40 Nacl 0.9% 1000 Ml IV 75 mls/hr DIRECT SUSAN Administration Multi-Ingred Cream/Lotion/Oil/Oint 1 applic 12/29/19 22:33 Artificial Tears Ophth Oint OU Q4HR PRN Dry Eye(s) Nicotine 21 mg 12/31/19 10:00 01/14/20 09:45 Habitrol TD 21 mg QDAY SUSAN Administration Ondansetron HCl 4 mg 12/27/19 23:14 01/02/20 21:44 Zofran IV 4 mg Q3H PRN Administration Nausea And Vomiting Oxycodone HCl 10 mg 01/12/20 14:00 01/14/20 03:27 Oxycontin PO 10 mg Q12H SUSAN Administration Oxycodone/Acetaminophen 2 tab 01/14/20 11:01 Percocet 5/325 PO Q8H PRN Pain, Moderate (4-6) Pantoprazole Sodium 40 mg 01/11/20 10:00 01/14/20 09:45 Protonix IV 40 mg QDAY SUSAN Administration Sodium Chloride 10 ml 12/28/19 10:00 01/14/20 09:45 Sodium Chloride Flush Syringe 10 Ml IV 10 ml BID SUSAN Administration Sodium Chloride 10 ml 12/27/19 23:14 12/29/19 10:40 Sodium Chloride Flush Syringe 10 Ml IV 10 ml PRN PRN Administration LINE FLUSH Nutrition/Malnutrition Assess - Dietary Evaluation Nutrition/Malnutrition Findings: Nutrition Notes Start: 12/30/19 08:57 Freq: Status: Active Protocol: Document 01/14/20 10:51 LM (Rec: 01/14/20 10:57 LM [id number]) Nutrition Notes Current Diagnosis Malnutrition Other Pertinent Diagnosis SBO s/p hemicolectomy, R nephrectomy, anemia Current Diet 12h Cyclic CPN at 125/215/ 125ml/hr Labs/Tests K 3.4 Pertinent Medications Reviewed Height 5 ft 8 in Weight 62.5 kg [place] Body Weight (kg) 70.00 BMI 20.9 Weight Status Appropriate Subjective/Other Information CPN day 14. Cyclic CPN continues. Percent of energy/protein needs met: 97%/100% Burn Absent Trauma Absent GI Symptoms None Current % PO Negligible Minimum of two criteria Yes Body Fat Depletion Mild depletion (non-severe) Muscle Mass Mild Depletion (non-severe) Reduced [employer] [place] Hand Strength Measurably Reduced (severe) #2 Nutrition Diagnosis Malnutrition Diagnosis Progress(for reassessment Continues documentation) #1 Nutrition Diagnosis Inadequate oral intake Diagnosis Progress(for reassessment Continues documentation) Is patient on ventilator? No Is Patient Ambulatory and/or Out of Bed No REE-([facility]-confined to bed) 1820.400 Calculation Used for Recommendations [facility] Additional Notes Protein needs 78-94g (1.25-1. 5g/kg) Fluid needs 1ml/kcal Nutrition Intervention Change Diet Order: Continue CPN Nutrition Support: 12 hr cycle CPN at 125/215/ 125ml/hr, Lipids K 100 mEq MVI. Osmolality: Kcal 2,260 Protein (gm) 100 Carbohydrates (gm) 400 Fat (gm) 50 Fluid (mL) 2,650 Goal #1 Meet at least 75% of energy and protein needs via CPN Goal #2 Weight gain/maintenance Anticipated Discharge Needs: 12 hour cyclic TPN Follow-Up By: 01/15/20 Additional Comments Labs in AM: CMP, Mg, Phos, TG
[2020-01-14] MEDS: FLUCONAZOLE 200 MG 200 MG/100 ML BAG IV SCH (12:13)
--- NOTE | 2020-01-14 13:50 | Progress Note ---
Assessment and Plan Cultures: 12/29/2019 sputum culture: Usual respiratory eric 12/29/2019 surgical culture/peritoneal fluid: E. coli resistant to ampicillin, Unasyn and Bactrim, susceptible to all cephalosporins and fluoroquinolones. 01/09/2020 blood culture: In process 01/09/2020 peritoneal fluid IR culture: In process A/P: 39-year-old male with remote history of Wilms tumor requiring right-sided nephrectomy and appendectomy in the was admitted to the hospital with abdominal pain. 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 CT with ascites/fluid collection, IR aspirated on 01/09/2020. #Sepsis, secondary to above #Need for group home TPN: got PORT placed. Recs: continue IV Ceftriaxone, Flagyl and Fluconazole Peritoneal cultures negative, agree with plan to stop antibiotics on 01/17/2020. We will follow, please call questions. Yu Walker MD [facility] ([facility]) M: [phone] O: [phone] F: [phone] Subjective Date of service: 01/14/20 Principal diagnosis: Abdominal pain small bowel obstruction Interval history: Afebrile, normal white count. Improved pain. Objective - Exam Narrative Exam: Constitutional: Alert, cooperative. No acute distress Head, Ears, Nose: Normocephalic, atraumatic. External ears, nose normal Eyes: Conjunctivae/corneas clear. No icterus. No ptosis. Neck: Supple, no meningeal signs Cardiovascular: S1, S2 normal. Respiratory: Good air entry, clear to auscultation bilaterally GI: Mucous fistula with colostomy bag, colostomy with biliary drainage, Musculoskeletal: No pedal edema, no cyanosis. Skin: No rash or abscess Hem/Lymphatic: No palpable cervical or supraclavicular nodes. No lymphangitis Psych: Mood ok. Affect normal Neurological: Awake, alert, oriented. No gross abnormality - Constitutional Vitals: Vital Signs Temp Pulse Resp BP Pulse Ox 98.1 F 110 H 18 117/74 100 01/14/20 11:58 01/14/20 11:58 01/14/20 11:58 01/14/20 11:58 01/14/20 11:58 Temperature -Last 24 Hours Temperature 98.1 F Temperature 98.3 F Temperature 98.8 F Temperature 98.7 F Temperature 98.5 F Temperature 98.4 F - Labs CBC & Chem 7: 01/14/20 08:29 01/14/20 00:54 Labs: Abnormal lab results 01/13/20 01/13/20 01/14/20 Range/Units 17:14 23:14 00:54 RBC 2.53 L (3.65-5.03) M/mm3 Hgb 7.3 L (11.8-15.2) gm/dl Hct 21.8 L (35.5-45.6) % Plt Count 856 H (140-440) K/mm3 Lymph % (Auto) 9.6 L (13.4-35.0) % [place] % (Auto) 9.2 H (0.0-7.3) % Lymph # (Auto) 1.0 L (1.2-5.4) K/mm3 [place] # (Auto) 1.0 H (0.0-0.8) K/mm3 Seg Neutrophils % 79.2 H (40.0-70.0) % Seg Neutrophils # 8.5 H (1.8-7.7) K/mm3 Potassium (3.6-5.0) mmol/L Creatinine (0.8-1.3) mg/dL Glucose (75-100) mg/dL POC Glucose 107 H 131 H (70-105) Calcium (8.4-10.2) mg/dL Alkaline Phosphatase (35-129) units/L Total Protein (6.3-8.2) g/dL Albumin (3.9-5) g/dL 01/14/20 01/14/20 01/14/20 Range/Units 00:54 05:10 08:29 RBC 2.67 L (3.65-5.03) M/mm3 Hgb 7.8 L (11.8-15.2) gm/dl Hct 22.8 L (35.5-45.6) % Plt Count 886 H (140-440) K/mm3 Lymph % (Auto) (13.4-35.0) % [place] % (Auto) (0.0-7.3) % Lymph # (Auto) (1.2-5.4) K/mm3 [place] # (Auto) (0.0-0.8) K/mm3 Seg Neutrophils % (40.0-70.0) % Seg Neutrophils # (1.8-7.7) K/mm3 Potassium 3.4 L (3.6-5.0) mmol/L Creatinine 0.6 L (0.8-1.3) mg/dL Glucose 119 H (75-100) mg/dL POC Glucose 159 H (70-105) Calcium 7.9 L (8.4-10.2) mg/dL Alkaline Phosphatase 130 H (35-129) units/L Total Protein 5.6 L (6.3-8.2) g/dL Albumin 2.1 L (3.9-5) g/dL 01/14/20 Range/Units 12:14 RBC (3.65-5.03) M/mm3 Hgb (11.8-15.2) gm/dl Hct (35.5-45.6) % Plt Count (140-440) K/mm3 Lymph % (Auto) (13.4-35.0) % [place] % (Auto) (0.0-7.3) % Lymph # (Auto) (1.2-5.4) K/mm3 [place] # (Auto) (0.0-0.8) K/mm3 Seg Neutrophils % (40.0-70.0) % Seg Neutrophils # (1.8-7.7) K/mm3 Potassium (3.6-5.0) mmol/L Creatinine (0.8-1.3) mg/dL Glucose (75-100) mg/dL POC Glucose 112 H (70-105) Calcium (8.4-10.2) mg/dL Alkaline Phosphatase (35-129) units/L Total Protein (6.3-8.2) g/dL Albumin (3.9-5) g/dL
[2020-01-14] MEDS ORDERED: FAT EMULSIONS 20% 250 ML IV SCH (20:00)
[2020-01-14] MEDS ORDERED: TOTAL PARENTERAL NUTRITION 2,400 ML IV SCH (20:00)
[2020-01-14] MEDS: oxyCODONE /ACETAMINOPHEN 5-325MG TAB PO PRN (21:47)
[2020-01-14] MEDS: ENOXAPARIN 40 MG/0.4 ML INJ SUB-Q SCH (22:13)
[2020-01-15] MEDS: oxyCODONE ER 10 MG TAB PO SCH ×2 (02:05→14:41)
[2020-01-15] MEDS: HYDROmorphone 1 MG/1 ML INJ IV PRN ×4 (03:53→17:45)
[2020-01-15 05:34] LABS: Basophils # (Auto) 0.1 K/mm3 (0.0-0.1); Basophils % (Auto) 0.9 % (0.0-1.8); Eosinophils # (Auto) 0.2 K/mm3 (0.0-0.4); Eosinophils % (Auto) 1.6 % (0.0-4.3); Hematocrit 24.1 % (35.5-45.6); Hemoglobin 8.1 gm/dl (11.8-15.2); Lymphocytes % (Auto) 9.1 % (13.4-35.0); Mean Corpuscular HGB Conc 34 % (32-34); Mean Corpuscular Volume 86 fl (84-94); Monocytes # (Auto) 0.8 K/mm3 (0.0-0.8); Monocytes % (Auto) 7.3 % (0.0-7.3); Platelet Count 865 K/mm3 (140-440); Red Blood Count 2.81 M/mm3 (3.65-5.03); Red Cell Distribution Width 14.6 % (13.2-15.2)
[2020-01-15 05:50] LABS: Alanine Aminotransferase 27 units/L (7-56); Albumin 2.6 g/dL (3.9-5); BUN/Creatinine Ratio 20; Blood Urea Nitrogen 16 mg/dL (9-20); Calcium 8.4 mg/dL (8.4-10.2); Hemolysis Index 6
[2020-01-15] MEDS: metroNIDAZOLE/NS 500 MG/100 ML 500 MG/100 ML BAG IV SCH ×3 (07:09→21:11)
[2020-01-15] MEDS: NICOTINE 21 MG/24 HR PATCH TD SCH (10:29)
[2020-01-15] MEDS: PANTOPRAZOLE 40 MG INJ IV SCH (10:31)
[2020-01-15] MEDS: cefTRIAXone/NS 2 GM/100 ML 2 GM/100 ML BAG IV SCH (10:32)
--- NOTE | 2020-01-15 10:54 | Progress Note ---
Assessment and Plan Cultures: 12/29/2019 sputum culture: Usual respiratory eric 12/29/2019 surgical culture/peritoneal fluid: E. coli resistant to ampicillin, Unasyn and Bactrim, susceptible to all cephalosporins and fluoroquinolones. 01/09/2020 blood culture: In process 01/09/2020 peritoneal fluid IR culture: In process A/P: 39-year-old male with remote history of Wilms tumor requiring right-sided nephrectomy and appendectomy in the was admitted to the hospital with abdominal pain. 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 CT with ascites/fluid collection, IR aspirated on 01/09/2020. #Sepsis, secondary to above #Need for halfway TPN: got PORT placed. Recs: continue IV Ceftriaxone, Flagyl and Fluconazole Peritoneal cultures negative, agree with plan to stop antibiotics on 01/17/2020. We will follow, please call questions. Yu Walker MD [facility] ([facility]) M: [phone] O: [phone] F: [phone] Subjective Date of service: 01/15/20 Principal diagnosis: Abdominal pain small bowel obstruction Interval history: Afebrile, white count slightly worsened today at 11.3. No other acute issues. Objective - Exam Narrative Exam: Constitutional: Alert, cooperative. No acute distress Head, Ears, Nose: Normocephalic, atraumatic Eyes: Conjunctivae/corneas clear. No icterus. No ptosis. Neck: Supple, no meningeal signs Cardiovascular: S1, S2 normal. Respiratory: Good air entry, clear to auscultation bilaterally GI: Mucous fistula with colostomy bag, colostomy with biliary drainage, Musculoskeletal: No pedal edema, no cyanosis. Skin: No rash or abscess Hem/Lymphatic: No palpable cervical or supraclavicular nodes. No lymphangitis Psych: Mood ok. Affect normal Neurological: Awake, alert, oriented. No gross abnormality - Constitutional Vitals: Vital Signs Temp Pulse Resp BP Pulse Ox 98.8 F 110 H 18 105/69 100 01/15/20 07:33 01/15/20 07:33 01/15/20 07:33 01/15/20 07:33 01/15/20 07:33 Temperature -Last 24 Hours Temperature 98.8 F Temperature 99.1 F Temperature 99.3 F Temperature 98.7 F Temperature 98.6 F Temperature 98.1 F - Labs CBC & Chem 7: 01/15/20 04:48 01/15/20 04:48 Labs: Abnormal lab results 01/14/20 01/15/20 01/15/20 Range/Units 12:14 00:11 04:48 WBC 11.3 H (4.5-11.0) K/mm3 RBC 2.81 L (3.65-5.03) M/mm3 Hgb 8.1 L (11.8-15.2) gm/dl Hct 24.1 L (35.5-45.6) % Plt Count 865 H (140-440) K/mm3 Lymph % (Auto) 9.1 L (13.4-35.0) % Lymph # (Auto) 1.0 L (1.2-5.4) K/mm3 Seg Neutrophils % 81.1 H (40.0-70.0) % Seg Neutrophils # 9.2 H (1.8-7.7) K/mm3 Carbon Dioxide (22-30) mmol/L Glucose (75-100) mg/dL POC Glucose 112 H 195 H (70-105) Alkaline Phosphatase (35-129) units/L Total Protein (6.3-8.2) g/dL Albumin (3.9-5) g/dL 01/15/20 01/15/20 Range/Units 04:48 07:33 WBC (4.5-11.0) K/mm3 RBC (3.65-5.03) M/mm3 Hgb (11.8-15.2) gm/dl Hct (35.5-45.6) % Plt Count (140-440) K/mm3 Lymph % (Auto) (13.4-35.0) % Lymph # (Auto) (1.2-5.4) K/mm3 Seg Neutrophils % (40.0-70.0) % Seg Neutrophils # (1.8-7.7) K/mm3 Carbon Dioxide 20 L (22-30) mmol/L Glucose 112 H (75-100) mg/dL POC Glucose 171 H (70-105) Alkaline Phosphatase 141 H (35-129) units/L Total Protein 5.7 L (6.3-8.2) g/dL Albumin 2.6 L (3.9-5) g/dL
[2020-01-15] MEDS: FLUCONAZOLE 200 MG 200 MG/100 ML BAG IV SCH (12:16)
--- NOTE | 2020-01-15 15:35 | Progress Note ---
Assessment and Plan -- Small bowel obstruction Status post exploratory lap x3. per surgery note: Some ischemic bowel, S/P Hemicolectomy, Fistula washed out. CT abdomen and pelvis shows intraperitoneal fluid collection. Now s/p CT-guided paracentesis. Culture negative Monitor vital signs and labs. ID on board. Patient started on ceftriaxone, Flagyl and fluconazole for possible intra-abdominal infection. Cultures negative so far. -- Dehydration: Resolved Patient well-hydrated Continue IV hydration --Acute Metabolic Encephalopathy with subsequent acute respiratory failure Resolved -- Metabolic acidosis Resolved -- ANEMIA -precipitous drop in hemoglobin Continue to monitor hemoglobin-hemoglobin today 7.6 Iron supplements -- Thrombocythemia Initially had thrombocytopenia and there was a concern for HIT blood test was negative Now has been thrombocythemia with platelet count up to 900s. This is likely reactive. Hematology oncology recommendations appreciated -- Severe protein calorie malnutrition cachexia On tpn. Clear liquid diet for now As per surgery, will be going home with TPN temporarily -- DVT prophylaxis Lovenox 40 mg daily. Brief History Patient is a 39-year-old F [place] male with a past medical history of right- sided nephrectomy status post Wilms tumor and appendectomy both of which o ccurred in the late 80s who is presenting with abdominal pain. Patient states for the past 2 days he has had some abdominal distention in the right lower quadrant and crampy 10 out of 10 pain. He has had multiple episodes of nausea and vomiting. Denied fever chills cough cold or congestion. On December 30, [address] showed patient to have free air in colon. Surgical intervention was required. Patient had surgery had partial hemicolectomy during exploratory laparotomy was subsequently intubated and transferred to the intensive care unit. On December 31, 2019 patient returned to the OR for an additional surgery. After initial extubation, Patient was not follow commands agitated unable to really protect airways and therefore was reintubated. Patient now extubated, being monitored at surgical unit. Need prolong TPN, CM working on d/c planning. patient is unfunded. Daily course: 01/02: s/p 2 UNITS OF FFP, Mild improvement in PLT, FOLLOW HIT. Monitor AM labs, Consult Dr Kendall if plt continues to drop. Low grade fever noted, will monitor, Room changed to better monitor risk of fall as patient still with some lethargy. ABG checked yesterday, did not reflect elevated CO2. 01/03: Patient clinically stable showing some improvement. Continues on TPN. Continue to monitor for bowel movement. Still very lethargic. Platelets improving up to 61. Continue to await HIT results. Continue aggressive physical therapy. 01/04: Continue agressive Physical therapy, per surgery Continue NPO to allow ischemic bowel to resolve, hold chemical DVT prophylaxis till platelets greater than 100K, Continue TPN. serial labs, patient will need port for TPN at home, will not advance diet until bowel ischemia resolves which can probably be done Tuesday, that is adv to clears. Continue antibiotics, if fever increases repeat CT abd pelvis, not really indicated at this point. Need to wean sedation ( haldol etc), needs PT to help mobilize. Labs checked today platelet has improved anticipate port to be placed on Tuesday. Continue to hold heparin. SCDs placed 01/05: Continues to clinically improve. Discussed with surgeon today Only about 4FT small bowel left following surgery. Patient will need TPN for a long time. Anticipate port placement for tomorrow 01/06: Surgeon advancing diet to clear liquid today to see how the patient tolerates. Case management still working on health insurance application for the patient. Patient understands longer to recovery. Continue physical therapy to strengthen the patient as he may end up going home. Awaiting labs for this morning if white count continues to increase will obtain ID consultation to rule out any underlying infection. Blood is noted at this time on overview. Await repeat CT abdomen and pelvis with IV contrast. Port placement per surgeon when no evidence of systemic infection. Continue pain control. Thrombocytopenia has resolved if HIT result is negative will resume chemical prophylaxis. Plan of care discussed with the patient and nursing staff at bedside. 01/07. Diet advanced to clear liquid yesterday. CT abdomen and pelvis performed showed possible intraperitoneal fluid collection. CT guided drainage ordered today. WBC 12.9. Phosphorus level 12?. Will repeat CMP and phosphorus. 01/08. Plan for CT-guided drainage with port placement. IR has been consulted for this. ID consulted for possible intra-abdominal infection. Patient started on IV antibiotics. Labs reviewed. He request for pain and antianxiety medications this morning. 01/09. He feels better today. Antianxiety medication prescribed made him sleep well. His port has been placed. Cultures from peritoneum shows no organism yet. 01/10. He has some abdominal discomfort. He is on pain medications. Labs reviewed showed thrombocythemia. Hematology oncology has been consulted. 01/11. Started him on oral medications [extended-release oxycodone] to see if pain can be better controlled. Needs to have insurance-Medicaid. Discussed with case fitter. He will need to have TPN at discharge. Hematology oncology recommendations appreciated-thrombocytopenia likely reactionary. Continue to monitor for now 01/12. His abdominal pain is better. Switch percocet to tramadol. Awaiting edicaid approval. Still on antibiotics. 01/13. Says percocet works better so will switch. Cultures are still negative. ID following. Plan to dc antibiotics. He will need assistance with TPN as he has no insurance. He applied for medicaid but decision is pending. 01/14: need TPN for d/c, discharge pending. Patient has no new complaint today. Subjective Date of service: 01/15/20 Principal diagnosis: Abdominal pain small bowel obstruction Interval history: Patient seen and examined. Medical records and medication list reviewed. No acute event overnight noted by the RN. Patient denies any chest pain or difficulty breathing. Discussed plan of care at bedside with patient. Discharge pending on TPN arrangement Objective - Exam Narrative Exam: General appearance: Present: no acute distress - EENT Eyes: Present: PERRL - Respiratory Respiratory: bilateral: CTA - Cardiovascular Rhythm: regular Heart Sounds: Present: S1 & S2 - Extremities Extremities: no ischemia - Abdominal General gastrointestinal: soft, tender, non-distended, normal bowel sounds - Psychiatric Psychiatric: appropriate mood/affect - Neurologic Neurologic: CNII-XII intact - Constitutional Vitals: Vital Signs - 12hr 01/15/20 01/15/20 05:40 07:33 Temperature 99.1 F 98.8 F Pulse Rate 104 H 110 H Respiratory 18 18 Rate Blood Pressure 109/66 105/69 O2 Sat by Pulse 98 100 Oximetry - Labs CBC & Chem 7: 01/16/20 05:20 01/16/20 05:20 Labs: Abnormal lab results 01/15/20 01/15/20 01/15/20 Range/Units 00:11 04:48 04:48 WBC 11.3 H (4.5-11.0) K/mm3 RBC 2.81 L (3.65-5.03) M/mm3 Hgb 8.1 L (11.8-15.2) gm/dl Hct 24.1 L (35.5-45.6) % Plt Count 865 H (140-440) K/mm3 Lymph % (Auto) 9.1 L (13.4-35.0) % Lymph # (Auto) 1.0 L (1.2-5.4) K/mm3 Seg Neutrophils % 81.1 H (40.0-70.0) % Seg Neutrophils # 9.2 H (1.8-7.7) K/mm3 Carbon Dioxide 20 L (22-30) mmol/L Glucose 112 H (75-100) mg/dL POC Glucose 195 H (70-105) Alkaline Phosphatase 141 H (35-129) units/L Total Protein 5.7 L (6.3-8.2) g/dL Albumin 2.6 L (3.9-5) g/dL 01/15/20 01/15/20 Range/Units 07:33 11:56 WBC (4.5-11.0) K/mm3 RBC (3.65-5.03) M/mm3 Hgb (11.8-15.2) gm/dl Hct (35.5-45.6) % Plt Count (140-440) K/mm3 Lymph % (Auto) (13.4-35.0) % Lymph # (Auto) (1.2-5.4) K/mm3 Seg Neutrophils % (40.0-70.0) % Seg Neutrophils # (1.8-7.7) K/mm3 Carbon Dioxide (22-30) mmol/L Glucose (75-100) mg/dL POC Glucose 171 H 148 H (70-105) Alkaline Phosphatase (35-129) units/L Total Protein (6.3-8.2) g/dL Albumin (3.9-5) g/dL
--- NOTE | 2020-01-15 17:32 | Event Note ---
Date: 01/15/20 continue present plan, patient really needs to ambulate!
[2020-01-15] MEDS: oxyCODONE /ACETAMINOPHEN 5-325MG TAB PO PRN (19:40)
[2020-01-15] MEDS ORDERED: TOTAL PARENTERAL NUTRITION 2,400 ML IV SCH (20:00)
[2020-01-15] MEDS ORDERED: FAT EMULSIONS 20% 250 ML IV SCH (20:00)
[2020-01-15] MEDS: ENOXAPARIN 40 MG/0.4 ML INJ SUB-Q SCH (21:11)
[2020-01-15] MEDS: ALPRAZolam 0.5 MG TAB PO PRN (21:39)
[2020-01-16] MEDS: HYDROmorphone 1 MG/1 ML INJ IV PRN ×5 (00:23→21:05)
[2020-01-16] MEDS: SODIUM CHLORIDE 0.9% 1000 ML 1,000 ML IV SCH (00:35)
[2020-01-16] MEDS: oxyCODONE ER 10 MG TAB PO SCH ×2 (02:46→15:53)
[2020-01-16] MEDS: metroNIDAZOLE/NS 500 MG/100 ML 500 MG/100 ML BAG IV SCH ×3 (06:00→22:02)
[2020-01-16 06:04] LABS: Basophils # (Auto) 0.1 K/mm3 (0.0-0.1); Eosinophils # (Auto) 0.2 K/mm3 (0.0-0.4); Eosinophils % (Auto) 2.1 % (0.0-4.3); Hematocrit 22.1 % (35.5-45.6); Hemoglobin 7.6 gm/dl (11.8-15.2); Lymphocytes # (Auto) 0.8 K/mm3 (1.2-5.4); Lymphocytes % (Auto) 8.3 % (13.4-35.0); Mean Corpuscular HGB Conc 35 % (32-34); Mean Corpuscular Volume 85 fl (84-94); Monocytes # (Auto) 0.7 K/mm3 (0.0-0.8); Monocytes % (Auto) 7.3 % (0.0-7.3); Platelet Count 739 K/mm3 (140-440); Red Cell Distribution Width 14.7 % (13.2-15.2)
[2020-01-16 06:22] LABS: Alanine Aminotransferase 21 units/L (7-56); Albumin 2.4 g/dL (3.9-5); Blood Urea Nitrogen 13 mg/dL (9-20); Calcium 8.5 mg/dL (8.4-10.2); Hemolysis Index 0
[2020-01-16 06:26] LABS: BUN/Creatinine Ratio 26
[2020-01-16] MEDS: FLUCONAZOLE 200 MG 200 MG/100 ML BAG IV SCH (08:05)
[2020-01-16] MEDS: cefTRIAXone/NS 2 GM/100 ML 2 GM/100 ML BAG IV SCH (09:54)
[2020-01-16] MEDS: PANTOPRAZOLE 40 MG INJ IV SCH (09:55)
--- NOTE | 2020-01-16 13:52 | Progress Note ---
Assessment and Plan -- Small bowel obstruction Status post exploratory lap x3. per surgery note: Some ischemic bowel, S/P Hemicolectomy, Fistula washed out. CT abdomen and pelvis shows intraperitoneal fluid collection. Now s/p CT-guided paracentesis. Culture negative Monitor vital signs and labs. ID on board. Patient started with ceftriaxone, Flagyl and fluconazole for possible intra-abdominal infection. Cultures negative so far. -- Dehydration: Resolved Patient well-hydrated Continue IV hydration --Acute Metabolic Encephalopathy with subsequent acute respiratory failure Resolved -- Metabolic acidosis Resolved -- ANEMIA -precipitous drop in hemoglobin Continue to monitor hemoglobin-hemoglobin today 7.6 Iron supplements -- Thrombocythemia Initially had thrombocytopenia and there was a concern for HIT blood test was negative Now has been thrombocythemia with platelet count up to 900s. This is likely reactive. Hematology oncology recommendations appreciated -- Severe protein calorie malnutrition cachexia On tpn. Clear liquid diet for now As per surgery, will be going home with TPN temporarily -- DVT prophylaxis Lovenox 40 mg daily. Brief History Patient is a 39-year-old F [place] male with a past medical history of right- sided nephrectomy status post Wilms tumor and appendectomy both of which occurred in the late 80s who is presenting with abdominal pain. Patient states for the past 2 days he has had some abdominal distention in the right lower quadrant and crampy 10 out of 10 pain. He has had multiple episodes of nausea and vomiting. Denied fever chills cough cold or congestion. On December 30, [address] showed patient to have free air in colon. Surgical intervention was required. Patient had surgery had partial hemicolectomy during exploratory laparotomy was subsequently intubated and transferred to the intensive care unit. On December 31, 2019 patient returned to the OR for an additional surgery. After initial extubation, Patient was not follow commands agitated unable to really protect airways and therefore was reintubated. Patient now extubated, being monitored at surgical unit. Need prolong TPN, CM working on d/c planning. patient is unfunded. Daily course: 01/02: s/p 2 UNITS OF FFP, Mild improvement in PLT, FOLLOW HIT. Monitor AM labs, Consult Dr Kendall if plt continues to drop. Low grade fever noted, will monitor, Room changed to better monitor risk of fall as patient still with some lethargy. ABG checked yesterday, did not reflect elevated CO2. 01/03: Patient clinically stable showing some improvement. Continues on TPN. Continue to monitor for bowel movement. Still very lethargic. Platelets improving up to 61. Continue to await HIT results. Continue aggressive physical therapy. 01/04: Continue agressive Physical therapy, per surgery Continue NPO to allow ischemic bowel to resolve, hold chemical DVT prophylaxis till platelets greater than 100K, Continue TPN. serial labs, patient will need port for TPN at home, will not advance diet until bowel ischemia resolves which can probably be done Tuesday, that is adv to clears. Continue antibiotics, if fever increases repeat CT abd pelvis, not really indicated at this point. Need to wean sedation ( haldol etc), needs PT to help mobilize. Labs checked today platelet has improved anticipate port to be placed on Tuesday. Continue to hold heparin. SCDs placed 01/05: Continues to clinically improve. Discussed with surgeon today Only about 4FT small bowel left following surgery. Patient will need TPN for a long time. Anticipate port placement for tomorrow 01/06: Surgeon advancing diet to clear liquid today to see how the patient tolerates. Case management still working on health insurance application for the patient. Patient understands longer to recovery. Continue physical therapy to strengthen the patient as he may end up going home. Awaiting labs for this morning if white count continues to increase will obtain ID consultation to rule out any underlying infection. Blood is noted at this time on overview. Await repeat CT abdomen and pelvis with IV contrast. Port placement per surgeon when no evidence of systemic infection. Continue pain control. Thrombocytopenia has resolved if HIT result is negative will resume chemical prophylaxis. Plan of care discussed with the patient and nursing staff at bedside. 01/07. Diet advanced to clear liquid yesterday. CT abdomen and pelvis performed showed possible intraperitoneal fluid collection. CT guided drainage ordered today. WBC 12.9. Phosphorus level 12?. Will repeat CMP and phosphorus. 01/08. Plan for CT-guided drainage with port placement. IR has been consulted for this. ID consulted for possible intra-abdominal infection. Patient started on IV antibiotics. Labs reviewed. He request for pain and antianxiety medications this morning. 01/09. He feels better today. Antianxiety medication prescribed made him sleep well. His port has been placed. Cultures from peritoneum shows no organism yet. 01/10. He has some abdominal discomfort. He is on pain medications. Labs reviewed showed thrombocythemia. Hematology oncology has been consulted. 01/11. Started him on oral medications [extended-release oxycodone] to see if pain can be better controlled. Needs to have insurance-Medicaid. Discussed with manager rn case. He will need to have TPN at discharge. Hematology oncology recommendations appreciated-thrombocytopenia likely reactionary. Continue to monitor for now 01/12. His abdominal pain is better. Switch percocet to tramadol. Awaiting medicaid approval. Still on antibiotics. 01/13. Says percocet works better so will switch. Cultures are still negative. ID following. Plan to dc antibiotics. He will need assistance with TPN as he has no insurance. He applied for medicaid but decision is pending. 01/14: need TPN for d/c, discharge pending. Patient has no new complaint today. 01/15: Pending discharge on TPN arrangement Subjective Date of service: 01/16/20 Principal diagnosis: Abdominal pain small bowel obstruction Interval history: Patient seen and examined. Medical records and medication list reviewed. No acute event overnight noted by the RN. Patient denies any chest pain or difficulty breathing. Discussed plan of care at bedside with patient. Discharge pending on TPN arrangement Objective - Exam Narrative Exam: General appearance: Present: no acute distress - EENT Eyes: Present: PERRL - Respiratory Respiratory: bilateral: CTA - Cardiovascular Rhythm: regular Heart Sounds: Present: S1 & S2 - Extremities Extremities: no ischemia - Abdominal General gastrointestinal: soft, tender, non-distended, normal bowel sounds - Psychiatric Psychiatric: appropriate mood/affect - Neurologic Neurologic: CNII-XII intact - Constitutional Vitals: Vital Signs - 12hr 01/16/20 01/16/20 01/16/20 02:46 05:21 05:44 Temperature 99.5 F Pulse Rate 97 H 105 H Respiratory 17 18 17 Rate Blood Pressure 98/66 Blood Pressure 110/64 [Left] O2 Sat by Pulse 100 99 Oximetry 01/16/20 01/16/20 05:48 06:54 Temperature 99.0 F Pulse Rate 111 H Respiratory 18 20 Rate Blood Pressure 111/69 Blood Pressure [Left] O2 Sat by Pulse 99 Oximetry - Labs CBC & Chem 7: 01/16/20 05:20 01/17/20 05:59 Labs: Abnormal lab results 10/01/16/20 01/16/20 Range/Units 23:43 05:20 05:20 RBC 2.60 L (3.65-5.03) M/mm3 Hgb 7.6 L (11.8-15.2) gm/dl Hct 22.1 L (35.5-45.6) % MCHC 35 H (32-34) % Plt Count 739 H (140-440) K/mm3 Lymph % (Auto) 8.3 L (13.4-35.0) % Lymph # (Auto) 0.8 L (1.2-5.4) K/mm3 Seg Neutrophils % 81.3 H (40.0-70.0) % Seg Neutrophils # 7.8 H (1.8-7.7) K/mm3 Creatinine 0.5 L (0.8-1.3) mg/dL POC Glucose 126 H (70-105) Total Protein 6.1 L (6.3-8.2) g/dL Albumin 2.4 L (3.9-5) g/dL 01/16/20 Range/Units 06:01 RBC (3.65-5.03) M/mm3 Hgb (11.8-15.2) gm/dl Hct (35.5-45.6) % MCHC (32-34) % Plt Count (140-440) K/mm3 Lymph % (Auto) (13.4-35.0) % Lymph # (Auto) (1.2-5.4) K/mm3 Seg Neutrophils % (40.0-70.0) % Seg Neutrophils # (1.8-7.7) K/mm3 Creatinine (0.8-1.3) mg/dL POC Glucose 121 H (70-105) Total Protein (6.3-8.2) g/dL Albumin (3.9-5) g/dL
--- NOTE | 2020-01-16 15:07 | Progress Note ---
Assessment and Plan Cultures: 12/29/2019 sputum culture: Usual respiratory eric 12/29/2019 surgical culture/peritoneal fluid: E. coli resistant to ampicillin, Unasyn and Bactrim, susceptible to all cephalosporins and fluoroquinolones. 01/09/2020 blood culture: In process 01/09/2020 peritoneal fluid IR culture: In process A/P: 39-year-old male with remote history of Wilms tumor requiring right-sided nephrectomy and appendectomy in the was admitted to the hospital with abdominal pain. 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 CT with ascites/fluid collection, IR aspirated on 01/09/2020. #Sepsis, secondary to above #Need for prison TPN: got PORT placed. Recs: continue IV Ceftriaxone, Flagyl and Fluconazole Peritoneal cultures negative, agree with plan to stop antibiotics on 01/17/2020. We will follow, please call questions. Yu Walker MD [facility] ([facility]) M: [phone] O: [phone] F: [phone] Subjective Date of service: 01/16/20 Principal diagnosis: Abdominal pain small bowel obstruction Interval history: Afebrile, improved white count now 9.6. No other acute concerns. Objective - Exam Narrative Exam: Constitutional: Alert, cooperative. No acute distress Head, Ears, Nose: Normocephalic, atraumatic Eyes: Conjunctivae/corneas clear. No icterus. Neck: Supple, no meningeal signs Cardiovascular: S1, S2 normal. Respiratory: Good air entry, clear to auscultation bilaterally GI: Mucous fistula with colostomy bag, colostomy with biliary drainage, Musculoskeletal: No pedal edema, no cyanosis. Skin: No rash or abscess Hem/Lymphatic: No palpable cervical or supraclavicular nodes. No lymphangitis Psych: Mood ok. Affect normal Neurological: Awake, alert, oriented. No gross abnormality - Constitutional Vitals: Vital Signs Temp Pulse Resp BP Pulse Ox 99.0 F 111 H 20 111/69 99 01/16/20 06:54 01/16/20 06:54 01/16/20 06:54 01/16/20 06:54 01/16/20 06:54 Temperature -Last 24 Hours Temperature 99.0 F Temperature 99.5 F Temperature 98.9 F Temperature 98.7 F Temperature 98.4 F - Labs CBC & Chem 7: 01/16/20 05:20 01/16/20 05:20 Labs: Abnormal lab results 01/15/20 01/16/20 01/16/20 Range/Units 23:43 05:20 05:20 RBC 2.60 L (3.65-5.03) M/mm3 Hgb 7.6 L (11.8-15.2) gm/dl Hct 22.1 L (35.5-45.6) % MCHC 35 H (32-34) % Plt Count 739 H (140-440) K/mm3 Lymph % (Auto) 8.3 L (13.4-35.0) % Lymph # (Auto) 0.8 L (1.2-5.4) K/mm3 Seg Neutrophils % 81.3 H (40.0-70.0) % Seg Neutrophils # 7.8 H (1.8-7.7) K/mm3 Creatinine 0.5 L (0.8-1.3) mg/dL POC Glucose 126 H (70-105) Total Protein 6.1 L (6.3-8.2) g/dL Albumin 2.4 L (3.9-5) g/dL 01/16/20 Range/Units 06:01 RBC (3.65-5.03) M/mm3 Hgb (11.8-15.2) gm/dl Hct (35.5-45.6) % MCHC (32-34) % Plt Count (140-440) K/mm3 Lymph % (Auto) (13.4-35.0) % Lymph # (Auto) (1.2-5.4) K/mm3 Seg Neutrophils % (40.0-70.0) % Seg Neutrophils # (1.8-7.7) K/mm3 Creatinine (0.8-1.3) mg/dL POC Glucose 121 H (70-105) Total Protein (6.3-8.2) g/dL Albumin (3.9-5) g/dL
[2020-01-16] MEDS: NICOTINE 21 MG/24 HR PATCH TD SCH (15:58)
[2020-01-16] MEDS ORDERED: TOTAL PARENTERAL NUTRITION 2,400 ML IV SCH (20:00)
[2020-01-16] MEDS: ALPRAZolam 0.5 MG TAB PO PRN (22:03)
[2020-01-16] MEDS: ENOXAPARIN 40 MG/0.4 ML INJ SUB-Q SCH (22:03)
[2020-01-17] MEDS: HYDROmorphone 1 MG/1 ML INJ IV PRN ×4 (00:34→20:57)
[2020-01-17] MEDS: oxyCODONE ER 10 MG TAB PO SCH ×2 (02:54→17:10)
[2020-01-17] MEDS: oxyCODONE /ACETAMINOPHEN 5-325MG TAB PO PRN ×2 (04:13→13:38)
[2020-01-17] MEDS: metroNIDAZOLE/NS 500 MG/100 ML 500 MG/100 ML BAG IV SCH ×2 (05:43→15:15)
[2020-01-17] MEDS: SODIUM CHLORIDE 0.9% 1000 ML 1,000 ML IV SCH (05:43)
[2020-01-17 06:41] LABS: Blood Urea Nitrogen 13 mg/dL (9-20); Calcium 8.1 mg/dL (8.4-10.2); Hemolysis Index 1
[2020-01-17 06:53] LABS: BUN/Creatinine Ratio 26
--- NOTE | 2020-01-17 07:25 | Event Note ---
Date: 01/17/20 Plan is to stop antibiotics today, will repeat paracentesis to remove any additional intra-abd fluid, caused by recent extensive small bowel resection and abnormal peritoneum from radiation. I need port accessed and removal of pic line at this point so patient can be trained to access port, need case management to arrange home TPN, need dietary to add trace elements to replace vit K dependant factors.
[2020-01-17] MEDS ORDERED: PANTOPRAZOLE 40 MG TAB PO SCH (07:30)
[2020-01-17] MEDS: cefTRIAXone/NS 2 GM/100 ML 2 GM/100 ML BAG IV SCH ×2 (08:54→09:05)
[2020-01-17] MEDS: NICOTINE 21 MG/24 HR PATCH TD SCH ×2 (08:57→09:05)
[2020-01-17] MEDS: PANTOPRAZOLE 40 MG INJ IV SCH (08:59)
[2020-01-17] MEDS: FLUCONAZOLE 200 MG 200 MG/100 ML BAG IV SCH (10:22)
--- NOTE | 2020-01-17 14:19 | Progress Note ---
Assessment and Plan -- Small bowel obstruction Status post exploratory lap x3. per surgery note: Some ischemic bowel, S/P Hemicolectomy, Fistula washed out. CT abdomen and pelvis shows intraperitoneal fluid collection. Now s/p CT-guided paracentesis. Culture negative Monitor vital signs and labs. ID on board. Patient treated with ceftriaxone, Flagyl and fluconazole for possible intra-abdominal infection. Cultures negative so far. -- Dehydration: Resolved Patient well-hydrated Continue IV hydration --Acute Metabolic Encephalopathy with subsequent acute respiratory failure Resolved -- Metabolic acidosis Resolved -- ANEMIA -precipitous drop in hemoglobin Continue to monitor hemoglobin-hemoglobin today 7.6 Iron supplements -- Thrombocythemia Initially had thrombocytopenia and there was a concern for HIT blood test was negative Now has been thrombocythemia with platelet count up to 900s. This is likely reactive. Hematology oncology recommendations appreciated -- Severe protein calorie malnutrition cachexia On tpn. Clear liquid diet for now As per surgery, will be going home with TPN temporarily -- DVT prophylaxis Lovenox 40 mg daily. Brief History Patient is a 39-year-old F Japanese male with a past medical history of right- sided nephrectomy status post Wilms tumor and appendectomy both of which occurred in the late 80s who is presenting with abdominal pain. Patient states for the past 2 days he has had some abdominal distention in the right lower quadrant and crampy 10 out of 10 pain. He has had multiple episodes of nausea and vomiting. Denied fever chills cough cold or congestion. On December 30, [address] showed patient to have free air in colon. Surgical intervention was required. Patient had surgery had partial hemicolectomy during exploratory laparotomy was subsequently intubated and transferred to the intensive care unit. On December 31, 2019 patient returned to the OR for an additional surgery. After initial extubation, Patient was not follow commands agitated unable to really protect airways and therefore was reintubated. Patient now extubated, being monitored at surgical unit. Need prolong TPN, CM working on d/c planning. patient is unfunded. Daily course: 01/02: s/p 2 UNITS OF FFP, Mild improvement in PLT, FOLLOW HIT. Monitor AM labs, Consult Dr Kendall if plt continues to drop. Low grade fever noted, will monitor, Room changed to better monitor risk of fall as patient still with some lethargy. ABG checked yesterday, did not reflect elevated CO2. 01/03: Patient clinically stable showing some improvement. Continues on TPN. Continue to monitor for bowel movement. Still very lethargic. Platelets improving up to 61. Continue to await HIT results. Continue aggressive physical therapy. 01/04: Continue agressive Physical therapy, per surgery Continue NPO to allow ischemic bowel to resolve, hold chemical DVT prophylaxis till platelets greater than 100K, Continue TPN. serial labs, patient will need port for TPN at home, will not advance diet until bowel ischemia resolves which can probably be done Tuesday, that is adv to clears. Continue antibiotics, if fever increases repeat CT abd pelvis, not really indicated at this point. Need to wean sedation ( haldol etc), needs PT to help mobilize. Labs checked today platelet has improved anticipate port to be placed on Tuesday. Continue to hold heparin. SCDs placed 01/05: Continues to clinically improve. Discussed with surgeon today Only about 4FT small bowel left following surgery. Patient will need TPN for a long time. Anticipate port placement for tomorrow 01/06: Surgeon advancing diet to clear liquid today to see how the patient tolerates. Case management still working on health insurance application for the patient. Patient understands longer to recovery. Continue physical therapy to strengthen the patient as he may end up going home. Awaiting labs for this morning if white count continues to increase will obtain ID consultation to rule out any underlying infection. Blood is noted at this time on overview. Await repeat CT abdomen and pelvis with IV contrast. Port placement per surgeon when no evidence of systemic infection. Continue pain control. Thrombocytopenia has resolved if HIT result is negative will resume chemical prophylaxis. Plan of care discussed with the patient and nursing staff at bedside. 01/07. Diet advanced to clear liquid yesterday. CT abdomen and pelvis performed showed possible intraperitoneal fluid collection. CT guided drainage ordered today. WBC 12.9. Phosphorus level 12?. Will repeat CMP and phosphorus. 01/08. Plan for CT-guided drainage with port placement. IR has been consulted for this. ID consulted for possible intra-abdominal infection. Patient started on IV antibiotics. Labs reviewed. He request for pain and antianxiety medications this morning. 01/09. He feels better today. Antianxiety medication prescribed made him sleep well. His port has been placed. Cultures from peritoneum shows no organism yet. 01/10. He has some abdominal discomfort. He is on pain medications. Labs reviewed showed thrombocythemia. Hematology oncology has been consulted. 01/11. Started him on oral medications [extended-release oxycodone] to see if pain can be better controlled. Needs to have insurance-Medicaid. Discussed with high risk case manager. He will need to have TPN at discharge. Hematology oncology recommendations appreciated-thrombocytopenia likely reactionary. Continue to monitor for now 01/12. His abdominal pain is better. Switch percocet to tramadol. Awaiting medicaid approval. Still on antibiotics. 01/13. Says percocet works better so will switch. Cultures are still negative. ID following. Plan to dc antibiotics. He will need assistance with TPN as he has no insurance. He applied for medicaid but decision is pending. 01/14: need TPN for d/c, discharge pending. Patient has no new complaint today. 01/15: Pending discharge on TPN arrangement 01/16: stop abx today, pending d/c. s/p paracentesis today Subjective Date of service: 01/17/20 Principal diagnosis: Abdominal pain small bowel obstruction Interval history: Patient seen and examined. Medical records and medication list reviewed. No acute event overnight noted by the RN. Patient denies any chest pain or difficulty breathing. Discussed plan of care at bedside with patient. Discharge pending on TPN arrangement Objective - Exam Narrative Exam: General appearance: Present: no acute distress - EENT Eyes: Present: PERRL - Respiratory Respiratory: bilateral: CTA - Cardiovascular Rhythm: regular Heart Sounds: Present: S1 & S2 - Extremities Extremities: no ischemia - Abdominal General gastrointestinal: soft, tender, non-distended, normal bowel sounds - Psychiatric Psychiatric: appropriate mood/affect - Neurologic Neurologic: CNII-XII intact - Constitutional Vitals: Vital Signs - 12hr 01/17/20 01/17/20 05:20 11:00 Temperature 99.5 F 99.1 F Pulse Rate 118 H 112 H Respiratory 18 19 Rate Blood Pressure 104/61 Blood Pressure 114/72 [Left] O2 Sat by Pulse 99 99 Oximetry - Labs CBC & Chem 7: 01/16/20 05:20 01/20/20 05:50 Labs: Abnormal lab results 01/16/20 01/16/20 01/17/20 Range/Units 17:42 23:15 05:38 Creatinine (0.8-1.3) mg/dL Glucose (75-100) mg/dL POC Glucose 129 H 139 H 162 H (70-105) Calcium (8.4-10.2) mg/dL Magnesium (1.7-2.3) mg/dL 01/17/20 Range/Units 05:59 Creatinine 0.5 L (0.8-1.3) mg/dL Glucose 122 H (75-100) mg/dL POC Glucose (70-105) Calcium 8.1 L (8.4-10.2) mg/dL Magnesium 1.50 L (1.7-2.3) mg/dL
--- NOTE | 2020-01-17 14:56 | Progress Note ---
Assessment and Plan Cultures: 12/29/2019 sputum culture: Usual respiratory eric 12/29/2019 surgical culture/peritoneal fluid: E. coli resistant to ampicillin, Unasyn and Bactrim, susceptible to all cephalosporins and fluoroquinolones. 01/09/2020 blood culture: In process 01/09/2020 peritoneal fluid IR culture: In process A/P: 39-year-old male with remote history of Wilms tumor requiring right-sided nephrectomy and appendectomy in the was admitted to the hospital with abdominal pain. 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 CT with ascites/fluid collection, IR aspirated on 01/09/2020. #Sepsis, secondary to above #Need for shelter TPN: got PORT placed. Recs: Stop antibiotics today Okay for removal of PICC and placement of port from infectious disease perspective We will follow, please call questions. Yu Walker MD [facility] ([facility]) M: [phone] O: [phone] F: [phone] Subjective Date of service: 01/17/20 Principal diagnosis: Abdominal pain small bowel obstruction Interval history: Afebrile, normal white count. No other acute issues. Objective - Exam Narrative Exam: Constitutional: Alert, cooperative. No acute distress Head, Ears, Nose: Normocephalic, atraumatic Eyes: Conjunctivae/corneas clear. No icterus. Neck: Supple, no meningeal signs Cardiovascular: S1, S2 normal. Respiratory: Good air entry, clear to auscultation bilaterally GI: Mucous fistula with colostomy bag, colostomy with biliary drainage, Musculoskeletal: No pedal edema, no cyanosis. Skin: No rash or abscess Hem/Lymphatic: No palpable cervical or supraclavicular nodes. No lymphangitis Psych: Mood ok. Affect normal Neurological: Awake, alert, oriented. No gross abnormality - Constitutional Vitals: Vital Signs Temp Pulse Resp BP Pulse Ox 99.1 F 112 H 19 114/72 99 01/17/20 11:00 01/17/20 11:00 01/17/20 11:00 01/17/20 11:00 01/17/20 11:00 Temperature -Last 24 Hours Temperature 99.1 F Temperature 99.5 F Temperature 99.1 F Temperature 98.6 F Temperature 99.3 F - Labs CBC & Chem 7: 01/16/20 05:20 01/17/20 05:59 Labs: Abnormal lab results 01/16/20 01/16/20 01/17/20 Range/Units 17:42 23:15 05:38 Creatinine (0.8-1.3) mg/dL Glucose (75-100) mg/dL POC Glucose 129 H 139 H 162 H (70-105) Calcium (8.4-10.2) mg/dL Magnesium (1.7-2.3) mg/dL 01/17/20 Range/Units 05:59 Creatinine 0.5 L (0.8-1.3) mg/dL Glucose 122 H (75-100) mg/dL POC Glucose (70-105) Calcium 8.1 L (8.4-10.2) mg/dL Magnesium 1.50 L (1.7-2.3) mg/dL
--- NOTE | 2020-01-17 14:58 | Procedure Note ---
Date of procedure: 01/17/20 Pre-op diagnosis: ascites Post-op diagnosis: same Procedure: US paracentesis Findings: small complex ascites Anesthesia: local Surgeon: MARCO ROJAS Estimated blood loss: none Pathology: list (120cc) Specimen disposition: to lab Condition: stable Disposition: floor
--- NOTE | 2020-01-17 15:56 | Ultrasound Report ---
ULTRASOUND-GUIDED PARACENTESIS HISTORY: abd fluid increasing,send fluid for cultures. PROCEDURE: The risks (including but not limited to bleeding, infection, and bowel injury) and benefi ts were explained to the patient and informed consent was obtained. A time out procedure was perform ed. Ultrasound was used to evaluate the abdomen and locate the largest ascites fluid pocket. Once the sk in was marked, the procedure site was prepped and draped in the usual sterile fashion and lidocaine w as used for local anesthesia. A skin cora was made and a 5 Togolese centesis catheter was placed. The patient was monitored closely throughout the procedure, and a total of 400 mL of yellow slightly marifer udy fluid was aspirated. Samples were sent to the lab for further evaluation per the primary clinici ans orders. The patient tolerated the procedure well with no complications. IMPRESSION: Successful ultrasound-guided paracentesis as described. Signer Name: Chandan Prakash Jr, MD Signed: 01/17/2020 3:51 PM Workstation Name: [id number]
[2020-01-17] MEDS ORDERED: TOTAL PARENTERAL NUTRITION 2,400 ML IV SCH (20:00)
[2020-01-17] MEDS: ENOXAPARIN 40 MG/0.4 ML INJ SUB-Q SCH (21:02)
[2020-01-18] MEDS: ALPRAZolam 0.5 MG TAB PO PRN ×3 (00:30→23:04)
[2020-01-18] MEDS: HYDROmorphone 1 MG/1 ML INJ IV PRN ×5 (00:49→21:50)
[2020-01-18] MEDS: oxyCODONE /ACETAMINOPHEN 5-325MG TAB PO PRN ×2 (02:50→05:19)
[2020-01-18] MEDS: oxyCODONE ER 10 MG TAB PO SCH ×2 (02:57→13:52)
[2020-01-18 07:28] LABS: Blood Urea Nitrogen 15 mg/dL (9-20); Calcium 8.4 mg/dL (8.4-10.2); Hemolysis Index 1
[2020-01-18 07:29] LABS: BUN/Creatinine Ratio 38
[2020-01-18] MEDS: NICOTINE 21 MG/24 HR PATCH TD SCH (11:22)
[2020-01-18] MEDS: PANTOPRAZOLE 40 MG INJ IV SCH (11:22)
[2020-01-18] MEDS: SODIUM CHLORIDE 0.9% 1000 ML 1,000 ML IV SCH (12:30)
[2020-01-18] MEDS ORDERED: METOCLOPRAMIDE 10 MG/2 ML INJ IV PRN (15:32)
--- NOTE | 2020-01-18 15:37 | Progress Note ---
Assessment and Plan Cultures: 12/29/2019 sputum culture: Usual respiratory eric 12/29/2019 surgical culture/peritoneal fluid: E. coli resistant to ampicillin, Unasyn and Bactrim, susceptible to all cephalosporins and fluoroquinolones. 01/09/2020 blood culture: Negative 01/09/2020 peritoneal fluid IR culture: Negative A/P: 39-year-old male with remote history of Wilms tumor requiring right-sided nephrectomy and appendectomy in the was admitted to the hospital with abdominal pain. 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 CT with ascites/fluid collection, IR aspirated on 01/09/2020. #Sepsis, secondary to above #Need for fdc TPN: got PORT placed. Recs: Monitor off antibiotics Okay for removal of PICC and placement of port from infectious disease p erspective We will follow, please call questions. Yu Walker MD [facility] [place] ([facility]) M: [phone] O: [phone] F: [phone] Subjective Date of service: 01/18/20 Principal diagnosis: Abdominal pain small bowel obstruction Interval history: Afebrile, no acute changes. Paracentesis performed yesterday. Objective - Exam Narrative Exam: Constitutional: Alert, cooperative. No acute distress Head, Ears, Nose: Normocephalic, atraumatic Eyes: Conjunctivae/corneas clear. No icterus. Neck: Supple, no meningeal signs Cardiovascular: S1, S2 normal. Respiratory: Good air entry, clear to auscultation bilaterally GI: Mucous fistula with colostomy bag, colostomy with biliary drainage, Musculoskeletal: No pedal edema, no cyanosis. Skin: No rash or abscess Hem/Lymphatic: No palpable cervical or supraclavicular nodes. No lymphangitis Psych: Mood ok. Affect normal Neurological: Awake, alert, oriented. No gross abnormality - Constitutional Vitals: Vital Signs Temp Pulse Resp BP Pulse Ox 99 F 108 H 20 105/75 100 01/18/20 11:54 01/18/20 11:54 01/18/20 11:54 01/18/20 11:54 01/18/20 11:54 Temperature -Last 24 Hours Temperature 99 F Temperature 98.7 F Temperature 98.4 F Temperature 97.8 F Temperature 98.7 F - Labs CBC & Chem 7: 01/16/20 05:20 01/18/20 06:39 Labs: Abnormal lab results 01/17/20 01/18/20 01/18/20 Range/Units 22:59 06:39 07:08 Creatinine 0.4 L (0.8-1.3) mg/dL Glucose 141 H (75-100) mg/dL POC Glucose 215 H 160 H (70-105)
--- NOTE | 2020-01-18 18:11 | Progress Note ---
Assessment and Plan s/p IR drainage of peritoneal fluid, stable, abd wounds ok, ostomies OK, continue TPN, off antibiotics, need port accessed, I spoke with his nurse about this so we can instruct patient on it's use, arrange Home TPN, make ostomies where patient can change them. Continue PPI and NPO for now. Very complex case but making slow but steady progress, we really need to wean all iv narcotics and anxiolytics. Swith to ORAL meds. Hopefully can get things in place for discharge next week. Subjective Date of service: 01/18/20 Patient Reports: Positive: no new complaints Objective Vital Signs - 12hr 01/18/20 01/18/20 01/18/20 07:00 07:35 11:54 Temperature 98.7 F 99 F Pulse Rate 131 H 108 H Respiratory 20 20 Rate Blood Pressure 111/74 Blood Pressure 111/74 105/75 [Left] O2 Sat by Pulse 97 100 Oximetry 01/18/20 01/18/20 17:00 17:30 Temperature 98.7 F Pulse Rate 120 H 108 H Respiratory 24 Rate Blood Pressure Blood Pressure 93/59 118/83 [Left] O2 Sat by Pulse 100 Oximetry - General physical appearance well developed, well nourished, no distress, severe distress - Eyes PERRL, normal occular movement - ENT normal pinna, normal nares, normal mucosa, no hearing loss, no congestion - Neck no masses, no bruits, trachea midline, no lymphadectomy, no venous distension - Respiratory normal expansion, normal respiratory effort, clear to percussion, clear to auscultation - Abdomen soft, bowel sounds hypoactive, other (ostomies OK) - Psychiatric oriented to time, oriented to person, oriented to place, speech is normal, memory intact - Labs 01/16/20 05:20 01/18/20 06:39 Diabetes panel 01/18/20 Range/Units 06:39 Sodium 138 (137-145) mmol/L Potassium 4.0 (3.6-5.0) mmol/L Chloride 100.9 (98-107) mmol/L Carbon Dioxide 29 (22-30) mmol/L BUN 15 (9-20) mg/dL Creatinine 0.4 L (0.8-1.3) mg/dL Glucose 141 H (75-100) mg/dL Calcium 8.4 (8.4-10.2) mg/dL Calcium panel 01/18/20 Range/Units 06:39 Calcium 8.4 (8.4-10.2) mg/dL Phosphorus 3.70 (2.5-4.5) mg/dL Pituitary panel 01/18/20 Range/Units 06:39 Sodium 138 (137-145) mmol/L Potassium 4.0 (3.6-5.0) mmol/L Chloride 100.9 (98-107) mmol/L Carbon Dioxide 29 (22-30) mmol/L BUN 15 (9-20) mg/dL Creatinine 0.4 L (0.8-1.3) mg/dL Glucose 141 H (75-100) mg/dL Calcium 8.4 (8.4-10.2) mg/dL Adrenal panel 01/18/20 Range/Units 06:39 Sodium 138 (137-145) mmol/L Potassium 4.0 (3.6-5.0) mmol/L Chloride 100.9 (98-107) mmol/L Carbon Dioxide 29 (22-30) mmol/L BUN 15 (9-20) mg/dL Creatinine 0.4 L (0.8-1.3) mg/dL Glucose 141 H (75-100) mg/dL Calcium 8.4 (8.4-10.2) mg/dL
--- NOTE | 2020-01-18 19:11 | Progress Note ---
Assessment and Plan -- Small bowel obstruction Status post exploratory lap x3. per surgery note: Some ischemic bowel, S/P Hemicolectomy, Fistula washed out. CT abdomen and pelvis shows intraperitoneal fluid collection. Now s/p CT-guided paracentesis. Culture negative Monitor vital signs and labs. ID on board. Patient treated with ceftriaxone, Flagyl and fluconazole for possible intra-abdominal infection. Cultures negative so far. -- Dehydration: Resolved Patient well-hydrated Continue IV hydration --Acute Metabolic Encephalopathy with subsequent acute respiratory failure Resolved -- Metabolic acidosis Resolved -- ANEMIA -precipitous drop in hemoglobin Continue to monitor hemoglobin-hemoglobin today 7.6 Iron supplements -- Thrombocythemia Initially had thrombocytopenia and there was a concern for HIT blood test was negative Now has been thrombocythemia with platelet count up to 900s. This is likely reactive. Hematology oncology recommendations appreciated -- Severe protein calorie malnutrition cachexia On tpn. Clear liquid diet for now As per surgery, will be going home with TPN temporarily -- DVT prophylaxis Lovenox 40 mg daily. Brief History Patient is a 39-year-old F [place]oc[place] male with a past medical history of right- sided nephrectomy status post Wilms tumor and appendectomy both of which occurred in the late 80s who is presenting with abdominal pain. Patient states for the past 2 days he has had some abdominal distention in the right lower quadrant and crampy 10 out of 10 pain. He has had multiple episodes of nausea and vomiting. Denied fever chills cough cold or congestion. On December 30, [address] showed patient to have free air in colon. Surgical intervention was required. Patient had surgery had partial hemicolectomy during exploratory laparotomy was subsequently intubated and transferred to the intensive care unit. On December 31, 2019 patient returned to the OR for an additional surgery. After initial extubation, Patient was not follow commands agitated unable to really protect airways and therefore was reintubated. Patient now extubated, being monitored at surgical unit. Need prolong TPN, CM working on d/c planning. patient is unfunded. Daily course: 01/02: s/p 2 UNITS OF FFP, Mild improvement in PLT, FOLLOW HIT. Monitor AM labs, Consult Dr Kendall if plt continues to drop. Low grade fever noted, will monitor, Room changed to better monitor risk of fall as patient still with some lethargy. ABG checked yesterday, did not reflect elevated CO2. 01/03: Patient clinically stable showing some improvement. Continues on TPN. Continue to monitor for bowel movement. Still very lethargic. Platelets improving up to 61. Continue to await HIT results. Continue aggressive physical therapy. 01/04: Continue agressive Physical therapy, per surgery Continue NPO to allow ischemic bowel to resolve, hold chemical DVT prophylaxis till platelets greater than 100K, Continue TPN. serial labs, patient will need port for TPN at home, will not advance diet until bowel ischemia resolves which can probably be done Tuesday, that is adv to clears. Continue antibiotics, if fever increases repeat CT abd pelvis, not really indicated at this point. Need to wean sedation ( haldol etc), needs PT to help mobilize. Labs checked today platelet has improved anticipate port to be placed on Tuesday. Continue to hold heparin. SCDs placed 01/05: Continues to clinically improve. Discussed with surgeon today Only about 4FT small bowel left following surgery. Patient will need TPN for a long time. Anticipate port placement for tomorrow 01/06: Surgeon advancing diet to clear liquid today to see how the patient tolerates. Case management still working on health insurance application for the patient. Patient understands longer to recovery. Continue physical therapy to strengthen the patient as he may end up going home. Awaiting labs for this morning if white count continues to increase will obtain ID consultation to rule out any underlying infection. Blood is noted at this time on overview. Await repeat CT abdomen and pelvis with IV contrast. Port placement per surgeon when no evidence of systemic infection. Continue pain control. Thrombocytopenia has resolved if HIT result is negative will resume chemical prophylaxis. Plan of care discussed with the patient and nursing staff at bedside. 01/07. Diet advanced to clear liquid yesterday. CT abdomen and pelvis performed showed possible intraperitoneal fluid collection. CT guided drainage ordered today. WBC 12.9. Phosphorus level 12?. Will repeat CMP and phosphorus. 01/08. Plan for CT-guided drainage with port placement. IR has been consulted for this. ID consulted for possible intra-abdominal infection. Patient started on IV antibiotics. Labs reviewed. He request for pain and antianxiety medications this morning. 01/09. He feels better today. Antianxiety medication prescribed made him sleep well. His port has been placed. Cultures from peritoneum shows no organism yet. 01/10. He has some abdominal discomfort. He is on pain medications. Labs reviewed showed thrombocythemia. Hematology oncology has been consulted. 01/11. Started him on oral medications [extended-release oxycodone] to see if pain can be better controlled. Needs to have insurance-Medicaid. Discussed with test case developer. He will need to have TPN at discharge. Hematology oncology recommendations appreciated-thrombocytopenia likely reactionary. Continue to monitor for now 01/12. His abdominal pain is better. Switch percocet to tramadol. Awaiting medicaid approval. Still on antibiotics. 01/13. Says percocet works better so will switch. Cultures are still negative. ID following. Plan to dc antibiotics. He will need assistance with TPN as he has no insurance. He applied for medicaid but decision is pending. 01/14: need TPN for d/c, discharge pending. Patient has no new complaint today. 01/15: Pending discharge on TPN arrangement 01/16: stop abx today, pending d/c. s/p paracentesis today 01/17: c/o nausea, will place on reglan, monitor BMP. cont supportive care Subjective Date of service: 01/18/20 Principal diagnosis: Abdominal pain small bowel obstruction Interval history: Patient seen and examined. Medical records and medication list reviewed. No acute event overnight noted by the RN. Patient denies any chest pain or difficulty breathing. Discussed plan of care at bedside with patient. c/o nausea Discharge pending on TPN arrangement Objective - Exam Narrative Exam: General appearance: Present: no acute distress - EENT Eyes: Present: PERRL - Respiratory Respiratory: bilateral: CTA - Cardiovascular Rhythm: regular Heart Sounds: Present: S1 & S2 - Extremities Extremities: no ischemia - Abdominal General gastrointestinal: soft, tender, non-distended, normal bowel sounds - Psychiatric Psychiatric: appropriate mood/affect - Neurologic Neurologic: CNII-XII intact - Constitutional Vitals: Vital Signs - 12hr 01/18/20 01/18/20 01/18/20 07:35 11:54 17:00 Temperature 98.7 F 99 F 98.7 F Pulse Rate 131 H 108 H 120 H Respiratory 20 20 24 Rate Blood Pressure 111/74 105/75 93/59 [Left] O2 Sat by Pulse 97 100 100 Oximetry 01/18/20 17:30 Temperature Pulse Rate 108 H Respiratory Rate Blood Pressure 118/83 [Left] O2 Sat by Pulse Oximetry - Labs CBC & Chem 7: 01/16/20 05:20 01/20/20 05:50 Labs: Abnormal lab results 01/17/20 01/18/20 01/18/20 Range/Units 22:59 06:39 07:08 Creatinine 0.4 L (0.8-1.3) mg/dL Glucose 141 H (75-100) mg/dL POC Glucose 215 H 160 H (70-105)
[2020-01-18] MEDS ORDERED: FAT EMULSIONS 20% 250 ML IV SCH (20:00)
[2020-01-18] MEDS ORDERED: TOTAL PARENTERAL NUTRITION 2,400 ML IV SCH (20:00)
[2020-01-18] MEDS: ENOXAPARIN 40 MG/0.4 ML INJ SUB-Q SCH (21:53)
[2020-01-19] MEDS: ONDANSETRON 4 MG/2 ML INJ IV PRN ×6 (02:22→22:18)
[2020-01-19] MEDS: HYDROmorphone 1 MG/1 ML INJ IV PRN ×5 (02:22→17:56)
[2020-01-19] MEDS: SODIUM CHLORIDE 0.9% 1000 ML 1,000 ML IV SCH ×2 (02:30→14:53)
[2020-01-19] MEDS: oxyCODONE ER 10 MG TAB PO SCH ×3 (02:48→15:11)
[2020-01-19] MEDS: PANTOPRAZOLE 40 MG INJ IV SCH (09:45)
[2020-01-19] MEDS: NICOTINE 21 MG/24 HR PATCH TD SCH (09:46)
[2020-01-19 10:30] LABS: Blood Urea Nitrogen 14 mg/dL (9-20); Calcium 8.3 mg/dL (8.4-10.2); Hemolysis Index 2
[2020-01-19 10:31] LABS: BUN/Creatinine Ratio 28
[2020-01-19] MEDS: ALPRAZolam 0.5 MG TAB PO PRN (17:16)
--- NOTE | 2020-01-19 17:50 | Progress Note ---
Assessment and Plan -- Nausea/vomiting likely from narcotics induced, limit use of narcotic, reglan as needed order for Ct abd/pelvis -- Small bowel obstruction Status post exploratory lap x3. per surgery note: Some ischemic bowel, S/P Hemicolectomy, Fistula washed out. CT abdomen and pelvis shows intraperitoneal fluid collection. Now s/p CT-guided paracentesis. Culture negative Monitor vital signs and labs. ID on board. Patient treated with ceftriaxone, Flagyl and fluconazole for possible intra-abdominal infection. Cultures negative so far. -- Dehydration: Resolved Patient well-hydrated Continue IV hydration --Acute Metabolic Encephalopathy with subsequent acute respiratory failure Resolved -- Metabolic acidosis Resolved -- ANEMIA of CD Continue to monitor hemoglobin Iron supplements -- Thrombocythemia Initially had thrombocytopenia and there was a concern for HIT blood test was negative Now has been thrombocythemia with platelet count up to 900s. This is likely reactive. Hematology oncology recommendations appreciated -- Severe protein calorie malnutrition cachexia On tpn. Clear liquid diet for now As per surgery, will be going home with TPN temporarily -- DVT prophylaxis Lovenox 40 mg daily. Brief History Patient is a 39-year-old F [place] male with a past medical history of right-sided nephrectomy status post Wilms tumor and appendectomy both of which occurred in the late 80s who is presenting with abdominal pain. Patient states for the past 2 days he has had some abdominal distention in the right lower quadrant and crampy 10 out of 10 pain. He has had multiple episodes of nausea and vomiting. Denied fever chills cough cold or congestion. On December 30, [address] showed patient to have free air in colon. Surgical intervention was required. Patient had surgery had partial hemicolectomy during exploratory laparotomy was subsequently intubated and transferred to the intensive care unit. On December 31, 2019 patient returned to the OR for an additional surgery. After initial extubation, Patient was not follow commands agitated unable to really protect airways and therefore was reintubated. Patient now extubated, being monitored at surgical unit. Need prolong TPN, JOAQUÍN working on d/c planning. patient is unfunded. Daily course: 01/02: s/p 2 UNITS OF FFP, Mild improvement in PLT, FOLLOW HIT. Monitor AM labs, Consult Dr Kendall if plt continues to drop. Low grade fever noted, will monitor, Room changed to better monitor risk of fall as patient still with some lethargy. ABG checked yesterday, did not reflect elevated CO2. 01/03: Patient clinically stable showing some improvement. Continues on TPN. Continue to monitor for bowel movement. Still very lethargic. Platelets improving up to 61. Continue to await HIT results. Continue aggressive physical therapy. 01/04: Continue agressive Physical therapy, per surgery Continue NPO to allow ischemic bowel to resolve, hold chemical DVT prophylaxis till platelets greater than 100K, Continue TPN. serial labs, patient will need port for TPN at home, will not advance diet until bowel ischemia resolves which can probably be done Tuesday, that is adv to clears. Continue antibiotics, if fever increases repeat CT abd pelvis, not really indicated at this point. Need to wean sedation ( haldol etc), needs PT to help mobilize. Labs checked today platelet has improved anticipate port to be placed on Tuesday. Continue to hold heparin. SCDs placed 01/05: Continues to clinically improve. Discussed with surgeon today Only about 4FT small bowel left following surgery. Patient will need TPN for a long time. Anticipate port placement for tomorrow 01/06: Surgeon advancing diet to clear liquid today to see how the patient tolerates. Case management still working on health insurance application for the patient. Patient understands longer to recovery. Continue physical therapy to strengthen the patient as he may end up going home. Awaiting labs for this morning if white count continues to increase will obtain ID consultation to rule out any underlying infection. Blood is noted at this time on overview. Await repeat CT abdomen and pelvis with IV contrast. Port placement per surgeon when no evidence of systemic infection. Continue pain control. Thrombocytopenia has resolved if HIT result is negative will resume chemical prophylaxis. Plan of care discussed with the patient and nursing staff at bedside. 01/07. Diet advanced to clear liquid yesterday. CT abdomen and pelvis performed showed possible intraperitoneal fluid collection. CT guided drainage ordered today. WBC 12.9. Phosphorus level 12?. Will repeat CMP and phosphorus. 01/08. Plan for CT-guided drainage with port placement. IR has been consulted for this. ID consulted for possible intra-abdominal infection. Patient started on IV antibiotics. Labs reviewed. He request for pain and antianxiety medications this morning. 01/09. He feels better today. Antianxiety medication prescribed made him sleep well. His port has been placed. Cultures from peritoneum shows no organism yet. 01/10. He has some abdominal discomfort. He is on pain medications. Labs reviewed showed thrombocythemia. Hematology oncology has been consulted. 01/11. Started him on oral medications [extended-release oxycodone] to see if pain can be better controlled. Needs to have insurance-Medicaid. Discussed with adult protective caseworker. He will need to have TPN at discharge. Hematology oncology recommendations appreciated-thrombocytopenia likely reactionary. Continue to monitor for now 01/12. His abdominal pain is better. Switch percocet to tramadol. Awaiting medicaid approval. Still on antibiotics. 01/13. Says percocet works better so will switch. Cultures are still negative. ID following. Plan to dc antibiotics. He will need assistance with TPN as he has no insurance. He applied for medicaid but decision is pending. 01/14: need TPN for d/c, discharge pending. Patient has no new complaint today. 01/15: Pending discharge on TPN arrangement 01/16: stop abx today, pending d/c 01/17: c/o nausea, will place on reglan, monitor BMP. cont supportive care 01/18: continue to c/o vomiting and abdominal pain. ordered CT abd/pelvis Subjective Date of service: 01/19/20 Principal diagnosis: Abdominal pain small bowel obstruction Interval history: Patient seen and examined. Medical records and medication list reviewed. No acute event overnight noted by the RN. Patient denies any chest pain or difficulty breathing. Discussed plan of care at bedside with patient. c/o nausea and vomiting today, asking for iv pain meds Discharge pending on TPN arrangement Objective - Exam Narrative Exam: General appearance: Present: no acute distress - EENT Eyes: Present: PERRL - Respiratory Respiratory: bilateral: CTA - Cardiovascular Rhythm: regular Heart Sounds: Present: S1 & S2 - Extremities Extremities: no ischemia - Abdominal General gastrointestinal: soft, tender, non-distended, normal bowel sounds - Psychiatric Psychiatric: appropriate mood/affect - Neurologic Neurologic: CNII-XII intact - Constitutional Vitals: Vital Signs - 12hr 01/19/20 01/19/20 01/19/20 06:22 06:24 06:54 Temperature 98.7 F Pulse Rate 116 H Respiratory Rate Blood Pressure Blood Pressure 114/80 [Left] O2 Sat by Pulse 99 Oximetry 01/19/20 01/19/20 01/19/20 07:49 11:58 17:28 Temperature 98.8 F 98.3 F 98.2 F Pulse Rate 116 H 106 H 97 H Respiratory 18 18 18 Rate Blood Pressure 102/71 108/70 123/78 Blood Pressure [Left] O2 Sat by Pulse 98 97 98 Oximetry - Labs CBC & Chem 7: 01/16/20 05:20 01/20/20 05:50 Labs: Abnormal lab results 01/18/20 01/19/20 01/19/20 Range/Units 23:11 12:16 Unknown Creatinine 0.5 L (0.8-1.3) mg/dL POC Glucose 193 H 113 H (70-105) Calcium 8.3 L (8.4-10.2) mg/dL
--- NOTE | 2020-01-19 18:20 | Event Note ---
Date: 01/19/[address] noted, still pending, we really need to stop the dilaudid and attempt oral pain med if used at all at this point.
[2020-01-19] MEDS ORDERED: TOTAL PARENTERAL NUTRITION 2,400 ML IV SCH (20:00)
[2020-01-19] MEDS: ENOXAPARIN 40 MG/0.4 ML INJ SUB-Q SCH (22:19)
[2020-01-19] MEDS: MORPHINE 2 MG/1 ML INJ IV PRN (22:26)
--- NOTE | 2020-01-19 23:09 | Cat Scan Report ---
CT abdomen pelvis wo con INDICATION: n/v and pain. TECHNIQUE: All CT scans at this location are performed using the following dose modulation technique: Automated exposure control. Helical slices were obtained through the abdomen and pelvis. No contrast is adminis tered. COMPARISON: CT scan dated 01/07/2020 FINDINGS: Abdomen: There is a small left pleural effusion with associated atelectasis in the left lower lobe. T he liver and left kidney unchanged. The stomach is distended with fluid. This is a new finding. There is an anterior abdominal surgical wound with skin som. There is some air and fluid noted along t his incision site with a small amount of air in the peritoneal cavity just posterior to the site. The re is loculated appearing ascites which is decreased in volume since the prior CT. The patient has un dergone 2 paracentesis procedures since that time. It is possible that the air present is iatrogenic related to the procedure but it is difficult to determine. There are surgical staple lines noted with in bowel in into ostomy sites in the lower abdomen which were present on the prior study. There is a small amount of subcapsular fluid along the spleen. The volume of this has decreased in th e interval. Pelvis: The bowel contained within the pelvis is normal in caliber. There is loculated appearing carissa toneal fluid in the pelvis. The volume is decreased when compared to the prior CT. On review of bone windows, no acute osseous abnormalities are seen. IMPRESSION: 1. On today's examination the stomach is distended with fluid. This is a new finding. There is locula lily fluid in the abdomen and pelvis. The volume of this loculated fluid is significantly decreased wh en compared to the prior CT.. There is a small amount of subcapsular fluid along the spleen which is decreased in volume in the int erval. There is small amount of fluid and air posterior to the patient's laparotomy site in the anterior abd ominal wall. It is possible this could be related to the patient's interval paracentesis procedures. This may represent air extending in from the incision site. There is a small left pleural effusion Signer Name: Yobany Jeff MD Signed: 01/19/2020 11:04 PM Workstation Name: [id number]
[2020-01-20] MEDS ORDERED: METOCLOPRAMIDE 10 MG/2 ML INJ IV ONE (00:38)
[2020-01-20] MEDS: oxyCODONE ER 10 MG TAB PO SCH (02:07)
[2020-01-20] MEDS: MORPHINE 2 MG/1 ML INJ IV PRN ×2 (03:28→06:24)
[2020-01-20] MEDS: ONDANSETRON 4 MG/2 ML INJ IV PRN (06:15)
[2020-01-20] MEDS: SODIUM CHLORIDE 0.9% 1000 ML 1,000 ML IV SCH (06:18)
[2020-01-20 06:54] LABS: Blood Urea Nitrogen 12 mg/dL (9-20); Calcium 8.2 mg/dL (8.4-10.2); Hemolysis Index 3
[2020-01-20 07:01] LABS: BUN/Creatinine Ratio 24
--- NOTE | 2020-01-20 09:28 | Progress Note ---
Assessment and Plan POD - VSS AF, ostomies OK, patient has gastroparesis, probably from narcotics, no further role for xanax/anxiolytics or narcotics IV, he is 20 days postop!, he may take lortab elixer / I ordered via pharmacy/ only for limited periods, I need port accessed and pic line d/tania, also this patient needs to ambulate with his iv pole around halls at least twice day. Discharge planning for home TPN, patient may have ice chips, rock candy or gum. Subjective Date of service: 01/20/20 Patient Reports: Positive: no new complaints, feels better Objective Vital Signs - 12hr 01/20/20 01/20/20 01/20/20 00:17 05:45 08:16 Temperature 98.4 F 98.4 F 99.6 F Pulse Rate 106 H 112 H 104 H Respiratory 18 Rate Blood Pressure 120/74 108/67 108/65 O2 Sat by Pulse 99 98 98 Oximetry - General physical appearance no distress - ENT normal pinna, normal nares, normal mucosa, no hearing loss, no congestion - Neck no masses, no bruits, trachea midline, no lymphadectomy, no venous distension - Respiratory normal expansion, normal respiratory effort, clear to percussion, clear to auscultation - Abdomen soft, bowel sounds hypoactive, other (draining clear fluid from middle of mid line/ expected, not infected) - Psychiatric oriented to time, oriented to person, oriented to place, speech is normal, memory intact - Labs 01/16/20 05:20 01/20/20 05:50 Diabetes panel 01/19/20 01/20/20 Range/Units Unknown 05:50 Sodium 138 138 (137-145) mmol/L Potassium 3.8 3.6 (3.6-5.0) mmol/L Chloride 101.5 100.8 (98-107) mmol/L Carbon Dioxide 29 26 (22-30) mmol/L BUN 14 12 (9-20) mg/dL Creatinine 0.5 L 0.5 L (0.8-1.3) mg/dL Glucose 94 127 H (75-100) mg/dL Calcium 8.3 L 8.2 L (8.4-10.2) mg/dL Calcium panel 01/19/20 01/20/20 Range/Units Unknown 05:50 Calcium 8.3 L 8.2 L (8.4-10.2) mg/dL Phosphorus 3.10 3.10 (2.5-4.5) mg/dL Pituitary panel 01/19/20 01/20/20 Range/Units Unknown 05:50 Sodium 138 138 (137-145) mmol/L Potassium 3.8 3.6 (3.6-5.0) mmol/L Chloride 101.5 100.8 (98-107) mmol/L Carbon Dioxide 29 26 (22-30) mmol/L BUN 14 12 (9-20) mg/dL Creatinine 0.5 L 0.5 L (0.8-1.3) mg/dL Glucose 94 127 H (75-100) mg/dL Calcium 8.3 L 8.2 L (8.4-10.2) mg/dL Adrenal panel 01/19/20 01/20/20 Range/Units Unknown 05:50 Sodium 138 138 (137-145) mmol/L Potassium 3.8 3.6 (3.6-5.0) mmol/L Chloride 101.5 100.8 (98-107) mmol/L Carbon Dioxide 29 26 (22-30) mmol/L BUN 14 12 (9-20) mg/dL Creatinine 0.5 L 0.5 L (0.8-1.3) mg/dL Glucose 94 127 H (75-100) mg/dL Calcium 8.3 L 8.2 L (8.4-10.2) mg/dL
[2020-01-20] MEDS ORDERED: METOCLOPRAMIDE 10 MG/2 ML INJ IV PRN (10:00)
[2020-01-20] MEDS: PANTOPRAZOLE 40 MG INJ IV SCH (11:07)
[2020-01-20] MEDS: NICOTINE 21 MG/24 HR PATCH TD SCH (11:07)
--- NOTE | 2020-01-20 14:46 | Progress Note ---
Assessment and Plan -- Nausea/vomiting likely from narcotics induced, limit use of narcotic, reglan as needed Ct abd/pelvis showed no obstruction, distended stomach General surgery recommended to stop all narcotics, strict n.p.o. except ice chips -- Small bowel obstruction Status post exploratory lap x3. per surgery note: Some ischemic bowel, S/P Hemicolectomy, Fistula washed out. CT abdomen and pelvis shows intraperitoneal fluid collection. Now s/p CT-guided paracentesis. Culture negative Monitor vital signs and labs. ID on board. Patient treated with ceftriaxone, Flagyl and fluconazole for possible intra-abdominal infection. Cultures negative so far. -- Dehydration: Resolved Patient well-hydrated Continue IV hydration --Acute Metabolic Encephalopathy with subsequent acute respiratory failure Resolved -- Metabolic acidosis Resolved -- ANEMIA of CD Continue to monitor hemoglobin Iron supplements -- Thrombocythemia Initially had thrombocytopenia and there was a concern for HIT blood test was negative Now has been thrombocythemia with platelet count up to 900s. This is likely reactive. Hematology oncology recommendations appreciated -- Severe protein calorie malnutrition cachexia On tpn. Clear liquid diet for now As per surgery, will be going home with TPN temporarily -- DVT prophylaxis Lovenox 40 mg daily. Brief History Patient is a 39-year-old F [place] male with a past medical history of right- sided nephrectomy status post Wilms tumor and appendectomy both of which occurred in the late 80s who is presenting with abdominal pain. Patient states for the past 2 days he has had some abdominal distention in the right lower quadrant and crampy 10 out of 10 pain. He has had multiple episodes of nausea and vomiting. Denied fever chills cough cold or congestion. On December 30, [address] showed patient to have free air in colon. Surgical intervention was required. Patient had surgery had partial hemicolectomy during exploratory laparotomy was subsequently intubated and tra nsferred to the intensive care unit. On December 31, 2019 patient returned to the OR for an additional surgery. After initial extubation, Patient was not follow commands agitated unable to really protect airways and therefore was reintubated. Patient now extubated, being monitored at surgical unit. Need prolong TPN, CM working on d/c planning. patient is unfunded. Daily course: 01/02: s/p 2 UNITS OF FFP, Mild improvement in PLT, FOLLOW HIT. Monitor AM labs, Consult Dr Enoch if plt continues to drop. Low grade fever noted, will monitor, Room changed to better monitor risk of fall as patient still with some lethargy. ABG checked yesterday, did not reflect elevated CO2. 01/03: Patient clinically stable showing some improvement. Continues on TPN. Continue to monitor for bowel movement. Still very lethargic. Platelets improving up to 61. Continue to await HIT results. Continue aggressive physical therapy. 01/04: Continue agressive Physical therapy, per surgery Continue NPO to allow ischemic bowel to resolve, hold chemical DVT prophylaxis till platelets greater than 100K, Continue TPN. serial labs, patient will need port for TPN at home, will not advance diet until bowel ischemia resolves which can probably be done Tuesday, that is adv to clears. Continue antibiotics, if fever increases repeat CT abd pelvis, not really indicated at this point. Need to wean sedation ( haldol etc), needs PT to help mobilize. Labs checked today platelet has improved anticipate port to be placed on Tuesday. Continue to hold heparin. SCDs placed 01/05: Continues to clinically improve. Discussed with surgeon today Only about 4FT small bowel left following surgery. Patient will need TPN for a long time. Anticipate port placement for tomorrow 01/06: Surgeon advancing diet to clear liquid today to see how the patient tolerates. Case management still working on health insurance application for the patient. Patient understands longer to recovery. Continue physical therapy to strengthen the patient as he may end up going home. Awaiting labs for this morning if white count continues to increase will obtain ID consultation to rule out any underlying infection. Blood is noted at this time on overview. Await repeat CT abdomen and pelvis with IV contrast. Port placement per surgeon when no evidence of systemic infection. Continue pain control. Thrombocytopenia has resolved if HIT result is negative will resume chemical prophylaxis. Plan of care discussed with the patient and nursing staff at bedside. 01/07. Diet advanced to clear liquid yesterday. CT abdomen and pelvis performed showed possible intraperitoneal fluid collection. CT guided drainage ordered today. WBC 12.9. Phosphorus level 12?. Will repeat CMP and phosphorus. 01/08. Plan for CT-guided drainage with port placement. IR has been consulted for this. ID consulted for possible intra-abdominal infection. Patient started on IV antibiotics. Labs reviewed. He request for pain and antianxiety medications this morning. 01/09. He feels better today. Antianxiety medication prescribed made him sleep well. His port has been placed. Cultures from peritoneum shows no organism yet. 01/10. He has some abdominal discomfort. He is on pain medications. Labs reviewed showed thrombocythemia. Hematology oncology has been consulted. 01/11. Started him on oral medications [extended-release oxycodone] to see if pain can be better controlled. Needs to have insurance-Medicaid. Discussed with case investigator. He will need to have TPN at discharge. Hematology oncology recommendations appreciated-thrombocytopenia likely reactionary. Continue to monitor for now 01/12. His abdominal pain is better. Switch percocet to tramadol. Awaiting medicaid approval. Still on antibiotics. 01/13. Says percocet works better so will switch. Cultures are still negative. ID following. Plan to dc antibiotics. He will need assistance with TPN as he has no insurance. He applied for medicaid but decision is pending. 01/14: need TPN for d/c, discharge pending. Patient has no new complaint today. 01/15: Pending discharge on TPN arrangement 01/16: stop abx today, pending d/c 01/17: c/o nausea, will place on reglan, monitor BMP. cont supportive care 01/18: continue to c/o vomiting and abdominal pain. ordered CT abd/pelvis 01/19: stopped narcotics, abd/pelvis CT showed no obstruction but distended stomach. cont reglan as needed. Ambulate Subjective Date of service: 01/20/20 Principal diagnosis: Abdominal pain small bowel obstruction Interval history: Patient seen and examined. Medical records and medication list reviewed. No acute event overnight noted by the RN. Patient denies any chest pain or difficulty breathing. Discussed plan of care at bedside with patient. no nausea and vomiting today, counseled to stop narcotics -patient understands Discharge pending on TPN arrangement Objective - Exam Narrative Exam: General appearance: Present: no acute distress - EENT Eyes: Present: PERRL - Respiratory Respiratory: bilateral: CTA - Cardiovascular Rhythm: regular Heart Sounds: Present: S1 & S2 - Extremities Extremities: no ischemia - Abdominal General gastrointestinal: soft, tender, non-distended, normal bowel sounds - Psychiatric Psychiatric: appropriate mood/affect - Neurologic Neurologic: CNII-XII intact - Constitutional Vitals: Vital Signs - 12hr 01/20/20 01/20/20 05:45 08:16 Temperature 98.4 F 99.6 F Pulse Rate 112 H 104 H Respiratory 18 18 Rate Blood Pressure 108/67 108/65 O2 Sat by Pulse 98 98 Oximetry - Labs CBC & Chem 7: 01/16/20 05:20 01/21/20 04:54 Labs: Abnormal lab results 01/20/20 01/20/20 01/20/20 Range/Units 00:38 05:50 06:02 Creatinine 0.5 L (0.8-1.3) mg/dL Glucose 127 H (75-100) mg/dL POC Glucose 177 H 156 H (70-105) Calcium 8.2 L (8.4-10.2) mg/dL 01/20/20 Range/Units 11:47 Creatinine (0.8-1.3) mg/dL Glucose (75-100) mg/dL POC Glucose 119 H (70-105) Calcium (8.4-10.2) mg/dL
[2020-01-20] MEDS ORDERED: TOTAL PARENTERAL NUTRITION 2,400 ML IV SCH (20:00)
[2020-01-20] MEDS: ENOXAPARIN 40 MG/0.4 ML INJ SUB-Q SCH (21:25)
[2020-01-20] MEDS: HYDROcodone/APAP 7.5-325MG-15ML ORAL LIQD PO PRN (21:26)
[2020-01-21 05:53] LABS: Blood Urea Nitrogen 14 mg/dL (9-20); Calcium 8.4 mg/dL (8.4-10.2); Hemolysis Index 2
[2020-01-21 05:57] LABS: BUN/Creatinine Ratio 28
[2020-01-21] MEDS: HYDROcodone/APAP 7.5-325MG-15ML ORAL LIQD PO PRN ×4 (06:03→21:54)
--- NOTE | 2020-01-21 09:13 | Progress Note ---
Assessment and Plan POD VSS AF, awake and alert, Port accessed, Pic line out, continue TPN, arrange home TPN, off antibiotics, on chemical DVT prophylaxis, continue NPO, rock candy, gum, sips of liquids/ice chips. Needs to amulate twice a day, push i v pole with him, I need to discuss ostomy care with [facility] nurse, hopefully can remove villegas drainage bag since it really is not practical at home and retirement. Subjective Date of service: 01/21/20 Patient Reports: Positive: no new complaints Objective Vital Signs - 12hr 01/20/20 01/21/20 01/21/20 23:55 05:23 07:00 Temperature 99.3 F 98.5 F Pulse Rate 104 H 95 H Respiratory 18 18 20 Rate Blood Pressure 114/72 Blood Pressure 116/73 [Left] O2 Sat by Pulse 96 98 Oximetry - General physical appearance no distress - Eyes PERRL, normal occular movement - ENT normal pinna, normal nares, normal mucosa, no hearing loss, no congestion - Neck no masses, no bruits, trachea midline, no lymphadectomy, no venous distension - Respiratory normal expansion, normal respiratory effort, clear to percussion, clear to auscultation - Abdomen soft, other (small open area around umbilicus, draining clear fluid, not infected , ostomies same) - Psychiatric oriented to time, oriented to person, oriented to place, speech is normal, memory intact - Labs 01/16/20 05:20 01/21/20 04:54 Diabetes panel 01/21/20 Range/Units 04:54 Sodium 143 (137-145) mmol/L Potassium 3.4 L (3.6-5.0) mmol/L Chloride 102.9 (98-107) mmol/L Carbon Dioxide 26 (22-30) mmol/L BUN 14 (9-20) mg/dL Creatinine 0.5 L (0.8-1.3) mg/dL Glucose 151 H (75-100) mg/dL Calcium 8.4 (8.4-10.2) mg/dL Calcium panel 01/21/20 Range/Units 04:54 Calcium 8.4 (8.4-10.2) mg/dL Phosphorus 4.00 D (2.5-4.5) mg/dL Pituitary panel 01/21/20 Range/Units 04:54 Sodium 143 (137-145) mmol/L Potassium 3.4 L (3.6-5.0) mmol/L Chloride 102.9 (98-107) mmol/L Carbon Dioxide 26 (22-30) mmol/L BUN 14 (9-20) mg/dL Creatinine 0.5 L (0.8-1.3) mg/dL Glucose 151 H (75-100) mg/dL Calcium 8.4 (8.4-10.2) mg/dL Adrenal panel 01/21/20 Range/Units 04:54 Sodium 143 (137-145) mmol/L Potassium 3.4 L (3.6-5.0) mmol/L Chloride 102.9 (98-107) mmol/L Carbon Dioxide 26 (22-30) mmol/L BUN 14 (9-20) mg/dL Creatinine 0.5 L (0.8-1.3) mg/dL Glucose 151 H (75-100) mg/dL Calcium 8.4 (8.4-10.2) mg/dL
[2020-01-21] MEDS: NICOTINE 21 MG/24 HR PATCH TD SCH (11:10)
[2020-01-21] MEDS: PANTOPRAZOLE 40 MG INJ IV SCH (11:12)
--- NOTE | 2020-01-21 15:01 | Event Note ---
Date: 01/21/20 I spoke with case management, apparently [place] does not consider short gut syndrome as being qualified for Medicaid, (hard to believe really, patient will have to apply for social security disability, he really needs to have TPN at home to survive at this point. Continue present management.
--- NOTE | 2020-01-21 15:08 | Progress Note ---
Assessment and Plan Cultures: 12/29/2019 sputum culture: Usual respiratory eric 12/29/2019 surgical culture/peritoneal fluid: E. coli resistant to ampicillin, Unasyn and Bactrim, susceptible to all cephalosporins and fluoroquinolones. 01/09/2020 blood culture: Negative 01/09/2020 peritoneal fluid IR culture: Negative A/P: 39-year-old male with remote history of Wilms tumor requiring right-sided nephrectomy and appendectomy in the was admitted to the hospital with abdominal pain. 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 CT with ascites/fluid collection, IR aspirated on 01/09/2020. #Sepsis, secondary to above #Need for intermediate TPN: got PORT placed. Recs: Repeat CBC in a.m. Okay for removal of PICC and placement of port from infectious disease perspe ctive We will follow, please call questions. Yu Walker MD [facility] ([facility]) M: [phone] O: [phone] F: [phone] Subjective Date of service: 01/21/20 Principal diagnosis: Abdominal pain small bowel obstruction Interval history: Afebrile, no acute changes at present. Imaging personally reviewed: CT abdomen pelvis: Loculated fluid present in the abdomen, however significantly decreased compared to prior CT. Objective - Exam Narrative Exam: Constitutional: Alert, cooperative. No acute distress Head, Ears, Nose: Normocephalic, atraumatic Eyes: Conjunctivae/corneas clear. No icterus. Neck: Supple, no meningeal signs Cardiovascular: S1, S2 normal. Respiratory: Good air entry, clear to auscultation bilaterally GI: Mucous fistula with colostomy bag, colostomy with biliary drainage, Musculoskeletal: No pedal edema, no cyanosis. Skin: No rash or abscess Hem/Lymphatic: No palpable cervical or supraclavicular nodes. No lymphangitis Psych: Mood ok. Affect normal Neurological: Awake, alert, oriented. No gross abnormality - Constitutional Vitals: Vital Signs Temp Pulse Resp BP Pulse Ox 98.8 F 71 16 116/71 99 01/21/20 12:01 01/21/20 12:01 01/21/20 12:01 01/21/20 12:01 01/21/20 12:01 Temperature -Last 24 Hours Temperature 98.8 F Temperature 98.5 F Temperature 99.3 F Temperature 98.0 F Temperature 98.9 F - Labs CBC & Chem 7: 01/16/20 05:20 01/21/20 04:54 Labs: Abnormal lab results 01/21/20 01/21/20 01/21/20 Range/Units 00:20 04:54 06:02 Potassium 3.4 L (3.6-5.0) mmol/L Creatinine 0.5 L (0.8-1.3) mg/dL Glucose 151 H (75-100) mg/dL POC Glucose 186 H 144 H (70-105)
--- NOTE | 2020-01-21 15:39 | Progress Note ---
Assessment and Plan -- Nausea/vomiting likely from narcotics induced, limit use of narcotic, reglan as needed Ct abd/pelvis showed no obstruction, distended stomach General surgery recommended to stop all narcotics, strict n.p.o. except ice chips -- Small bowel obstruction Status post exploratory lap x3. per surgery note: Some ischemic bowel, S/P Hemicolectomy, Fistula washed out. CT abdomen and pelvis shows intraperitoneal fluid collection. Now s/p CT-guided paracentesis. Culture negative Monitor vital signs and labs. ID on board. Patient treated with ceftriaxone, Flagyl and fluconazole for possible intra-abdominal infection. Cultures negative so far. -- Dehydration: Resolved Patient well-hydrated Continue IV hydration --Acute Metabolic Encephalopathy with subsequent acute respiratory failure Resolved -- Metabolic acidosis Resolved -- ANEMIA of CD Continue to monitor hemoglobin Iron supplements -- Thrombocythemia Initially had thrombocytopenia and there was a concern for HIT blood test was negative Now has been thrombocythemia with platelet count up to 900s. This is likely reactive. Hematology oncology recommendations appreciated -- Severe protein calorie malnutrition cachexia On tpn. As per surgery, will be going home with TPN -- DVT prophylaxis Lovenox 40 mg daily. Brief History Patient is a 39-year-old F [place] male with a past medical history of right- sided nephrectomy status post Wilms tumor and appendectomy both of which occurred in the late 80s who is presenting with abdominal pain. Patient states for the past 2 days he has had some abdominal distention in the right lower q uadrant and crampy 10 out of 10 pain. He has had multiple episodes of nausea and vomiting. Denied fever chills cough cold or congestion. On December 30, [address] showed patient to have free air in colon. Surgical intervention was required. Patient had surgery had partial hemicolectomy during exploratory laparotomy was subsequently intubated and transferred to the intensive care unit. On December 31, 2019 patient returned to the OR for an additional surgery. After initial extubation, Patient was not follow commands agitated unable to really protect airways and therefore was reintubated. Patient now extubated, being monitored at surgical unit. Need prolong TPN, CM working on d/c planning. patient is unfunded. Daily course: 01/02: s/p 2 UNITS OF FFP, Mild improvement in PLT, FOLLOW HIT. Monitor AM labs, Consult Dr Kendall if plt continues to drop. Low grade fever noted, will monitor, Room changed to better monitor risk of fall as patient still with some lethargy. ABG checked yesterday, did not reflect elevated CO2. 01/03: Patient clinically stable showing some improvement. Continues on TPN. Continue to monitor for bowel movement. Still very lethargic. Platelets improving up to 61. Continue to await HIT results. Continue aggressive physical therapy. 01/04: Continue agressive Physical therapy, per surgery Continue NPO to allow ischemic bowel to resolve, hold chemical DVT prophylaxis till platelets greater than 100K, Continue TPN. serial labs, patient will need port for TPN at home, will not advance diet until bowel ischemia resolves which can probably be done Tuesday, that is adv to clears. Continue antibiotics, if fever increases repeat CT abd pelvis, not really indicated at this point. Need to wean sedation ( haldol etc), needs PT to help mobilize. Labs checked today platelet has improved anticipate port to be placed on Tuesday. Continue to hold heparin. SCDs placed 01/05: Continues to clinically improve. Discussed with surgeon today Only about 4FT small bowel left following surgery. Patient will need TPN for a long time. Anticipate port placement for tomorrow 01/06: Surgeon advancing diet to clear liquid today to see how the patient tolerates. Case management still working on health insurance application for the patient. Patient understands longer to recovery. Continue physical therapy to strengthen the patient as he may end up going home. Awaiting labs for this morning if white count continues to increase will obtain ID consultation to rule out any underlying infection. Blood is noted at this time on overview. Await repeat CT abdomen and pelvis with IV contrast. Port placement per surgeon when no evidence of systemic infection. Continue pain control. Thrombocytopenia has resolved if HIT result is negative will resume chemical prophylaxis. Plan of care discussed with the patient and nursing staff at bedside. 01/07. Diet advanced to clear liquid yesterday. CT abdomen and pelvis performed showed possible intraperitoneal fluid collection. CT guided drainage ordered to day. WBC 12.9. Phosphorus level 12?. Will repeat CMP and phosphorus. 01/08. Plan for CT-guided drainage with port placement. IR has been consulted for this. ID consulted for possible intra-abdominal infection. Patient started on IV antibiotics. Labs reviewed. He request for pain and antianxiety medications this morning. 10/8. He feels better today. Antianxiety medication prescribed made him sleep well. His port has been placed. Cultures from peritoneum shows no organism yet. 01/10. He has some abdominal discomfort. He is on pain medications. Labs reviewed showed thrombocythemia. Hematology oncology has been consulted. 01/11. Started him on oral medications [extended-release oxycodone] to see if pain can be better controlled. Needs to have insurance-Medicaid. Discussed with bilingual case manager. He will need to have TPN at discharge. Hematology oncology recommendations appreciated-thrombocytopenia likely reactionary. Continue to monitor for now 01/12. His abdominal pain is better. Switch percocet to tramadol. Awaiting medicaid approval. Still on antibiotics. 01/13. Says percocet works better so will switch. Cultures are still negative. ID following. Plan to dc antibiotics. He will need assistance with TPN as he has no insurance. He applied for medicaid but decision is pending. 01/14: need TPN for d/c, discharge pending. Patient has no new complaint today. 01/15: Pending discharge on TPN arrangement 01/16: stop abx today, pending d/c 01/17: c/o nausea, will place on reglan, monitor BMP. cont supportive care 01/18: continue to c/o vomiting and abdominal pain. ordered CT abd/pelvis 01/19: stopped narcotics, abd/pelvis CT showed no obstruction but distended stomach. cont reglan as needed. Ambulate 01/20: N/V improved. cont TPN. discharge pending on TPN arrangement - patient unfunded Subjective Date of service: 01/21/20 Principal diagnosis: Abdominal pain small bowel obstruction Interval history: Patient seen and examined. Medical records and medication list reviewed. No acute event overnight noted by the RN. Patient denies any chest pain or difficulty breathing. Discussed plan of care at bedside with patient. Discharge pending on TPN arrangement Objective - Exam Narrative Exam: General appearance: Present: no acute distress - EENT Eyes: Present: PERRL - Respiratory Respiratory: bilateral: CTA - Cardiovascular Rhythm: regular Heart Sounds: Present: S1 & S2 - Extremities Extremities: no ischemia - Abdominal General gastrointestinal: soft, tender, non-distended, normal bowel sounds - Psychiatric Psychiatric: appropriate mood/affect - Neurologic Neurologic: CNII-XII intact - Constitutional Vitals: Vital Signs - 12hr 10/19/20 10/19/20 10/19/20 05:23 07:00 12:01 Temperature 99.3 F 98.5 F 98.8 F Pulse Rate 104 H 95 H 71 Respiratory 18 20 16 Rate Blood Pressure 114/72 Blood Pressure 116/73 116/71 [Left] O2 Sat by Pulse 96 98 99 Oximetry - Labs CBC & Chem 7: 01/22/20 07:15 01/23/20 06:43 Labs: Abnormal lab results 01/21/20 01/21/20 01/21/20 Range/Units 00:20 04:54 06:02 Potassium 3.4 L (3.6-5.0) mmol/L Creatinine 0.5 L (0.8-1.3) mg/dL Glucose 151 H (75-100) mg/dL POC Glucose 186 H 144 H (70-105)
[2020-01-21] MEDS ORDERED: TOTAL PARENTERAL NUTRITION 2,400 ML IV SCH (20:00)
[2020-01-21] MEDS ORDERED: FAT EMULSIONS 20% 250 ML IV SCH (20:00)
[2020-01-21] MEDS: ENOXAPARIN 40 MG/0.4 ML INJ SUB-Q SCH (21:52)
[2020-01-22 07:28] LABS: Basophils # (Auto) 0.1 K/mm3 (0.0-0.1); Basophils % (Auto) 1.1 % (0.0-1.8); Eosinophils # (Auto) 0.3 K/mm3 (0.0-0.4); Eosinophils % (Auto) 2.5 % (0.0-4.3); Hematocrit 24.7 % (35.5-45.6); Hemoglobin 8.6 gm/dl (11.8-15.2); Lymphocytes % (Auto) 9.5 % (13.4-35.0); Mean Corpuscular HGB Conc 35 % (32-34); Mean Corpuscular Volume 84 fl (84-94); Monocytes # (Auto) 0.7 K/mm3 (0.0-0.8); Monocytes % (Auto) 6.8 % (0.0-7.3); Platelet Count 598 K/mm3 (140-440); Red Blood Count 2.95 M/mm3 (3.65-5.03); Red Cell Distribution Width 15.2 % (13.2-15.2)
[2020-01-22 09:03] LABS: Blood Urea Nitrogen 20 mg/dL (9-20); Calcium 8.8 mg/dL (8.4-10.2); Hemolysis Index 7
[2020-01-22 09:04] LABS: BUN/Creatinine Ratio 33
[2020-01-22 13:14] LABS: Hemoglobin A2 Prime SEE SCANNED RESULT; Hemoglobin Barts SEE SCANNED RESULT; Hemoglobin E SEE SCANNED RESULT; Hemoglobin G SEE SCANNED RESULT; Hemoglobin Lepore SEE SCANNED RESULT; Hemoglobin O-Arab SEE SCANNED RESULT; IEF Confirm SEE SCANNED RESULT; Sickle Solubility Test SEE SCANNED RESULT
[2020-01-22 13:15] LABS: Interpretation SEE SCANNED RESULT
--- NOTE | 2020-01-22 13:37 | Progress Note ---
Assessment and Plan Cultures: 12/29/2019 sputum culture: Usual respiratory eric 12/29/2019 surgical culture/peritoneal fluid: E. coli resistant to ampicillin, Unasyn and Bactrim, susceptible to all cephalosporins and fluoroquinolones. 01/09/2020 blood culture: Negative 01/09/2020 peritoneal fluid IR culture: Negative A/P: 39-year-old male with remote history of Wilms tumor requiring right-sided nephrectomy and appendectomy in the was admitted to the hospital with abdominal pain. 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 CT with ascites/fluid collection, IR aspirated on 01/09/2020. #Sepsis, secondary to above #Need for [place] [facility] TPN: got PORT placed. Recs: -Doing well on antibiotics. We will sign off for now, please call with any questions arise. Yu Walker MD [facility] ([facility]) M: [phone] O: [phone] F: [phone] Subjective Date of service: 01/22/20 Principal diagnosis: Abdominal pain small bowel obstruction Interval history: Afebrile, normal white count. No acute issues. Objective - Exam Narrative Exam: Constitutional: Alert, cooperative. No acute distress Head, Ears, Nose: Normocephalic, atraumatic Eyes: Conjunctivae/corneas clear. Neck: Supple, no meningeal signs Cardiovascular: S1, S2 normal. Respiratory: Good air entry, clear to auscultation bilaterally GI: Mucous fistula with colostomy bag, colostomy with biliary drainage, Musculoskeletal: No pedal edema, no cyanosis. Skin: No rash or abscess Hem/Lymphatic: No palpable cervical or supraclavicular nodes. No lymphangitis Psych: Mood ok. Affect normal Neurological: Awake, alert, oriented. No gross abnormality - Constitutional Vitals: Vital Signs Temp Pulse Resp BP Pulse Ox 99.0 F 89 18 101/64 98 01/22/20 12:10 01/22/20 12:10 01/22/20 12:10 01/22/20 12:10 01/22/20 12:10 Temperature -Last 24 Hours Temperature 99.0 F Temperature 98.3 F Temperature 99.2 F Temperature 97.9 F Temperature 98.7 F Temperature 98.3 F Temperature 98.9 F - Labs CBC & Chem 7: 01/22/20 07:15 01/22/20 07:15 Labs: Abnormal lab results 01/21/20 01/22/20 01/22/20 Range/Units 23:17 05:37 07:15 RBC (3.65-5.03) M/mm3 Hgb (11.8-15.2) gm/dl Hct (35.5-45.6) % MCHC (32-34) % Plt Count (140-440) K/mm3 Lymph % (Auto) (13.4-35.0) % Lymph # (Auto) (1.2-5.4) K/mm3 Seg Neutrophils % (40.0-70.0) % Seg Neutrophils # (1.8-7.7) K/mm3 Creatinine 0.6 L (0.8-1.3) mg/dL Glucose 150 H (75-100) mg/dL POC Glucose 192 H 155 H (70-105) 01/22/20 Range/Units 07:15 RBC 2.95 L (3.65-5.03) M/mm3 Hgb 8.6 L (11.8-15.2) gm/dl Hct 24.7 L (35.5-45.6) % MCHC 35 H (32-34) % Plt Count 598 H (140-440) K/mm3 Lymph % (Auto) 9.5 L (13.4-35.0) % Lymph # (Auto) 1.0 L (1.2-5.4) K/mm3 Seg Neutrophils % 80.1 H (40.0-70.0) % Seg Neutrophils # 8.8 H (1.8-7.7) K/mm3 Creatinine (0.8-1.3) mg/dL Glucose (75-100) mg/dL POC Glucose (70-105)
[2020-01-22] MEDS: PANTOPRAZOLE 40 MG INJ IV SCH (14:29)
[2020-01-22] MEDS: NICOTINE 21 MG/24 HR PATCH TD SCH (14:30)
--- NOTE | 2020-01-22 15:04 | Progress Note ---
Assessment and Plan -- Nausea/vomiting likely from narcotics induced, limit use of narcotic, reglan as needed Ct abd/pelvis showed no obstruction, distended stomach General surgery recommended to stop all narcotics, strict n.p.o. except ice chips -- Small bowel obstruction Status post exploratory lap x3. per surgery note: Some ischemic bowel, S/P Hemicolectomy, Fistula washed out. CT abdomen and pelvis shows intraperitoneal fluid collection. Now s/p CT-guided paracentesis. Culture negative Monitor vital signs and labs. ID on board. Patient treated with ceftriaxone, Flagyl and fluconazole for possible intra-abdominal infection. Cultures negative so far. -- Dehydration: Resolved Patient well-hydrated Continue IV hydration --Acute Metabolic Encephalopathy with subsequent acute respiratory failure Resolved -- Metabolic acidosis Resolved -- ANEMIA of CD Continue to monitor hemoglobin Iron supplements -- Thrombocythemia Initially had thrombocytopenia and there was a concern for HIT blood test was negative Now has been thrombocythemia with platelet count up to 900s. This is likely reactive. Hematology oncology recommendations appreciated -- Severe protein calorie malnutrition cachexia On tpn. As per surgery, will be going home with TPN -- DVT prophylaxis Lovenox 40 mg daily. Brief History Patient is a 39-year-old F [place] male with a past medical history of right- sided nephrectomy status post Wilms tumor and appendectomy both of which occurred in the late 80s who is presenting with abdominal pain. Patient states for the past 2 days he has had some abdominal distention in the right lower q uadrant and crampy 10 out of 10 pain. He has had multiple episodes of nausea and vomiting. Denied fever chills cough cold or congestion. On December 30, [address] showed patient to have free air in colon. Surgical intervention was required. Patient had surgery had partial hemicolectomy during exploratory laparotomy was subsequently intubated and transferred to the intensive care unit. On December 31, 2019 patient returned to the OR for an additional surgery. After initial extubation, Patient was not follow commands agitated unable to really protect airways and therefore was reintubated. Patient now extubated, being monitored at surgical unit. Need prolong TPN, CM working on d/c planning. patient is unfunded. Daily course: 01/02: s/p 2 UNITS OF FFP, Mild improvement in PLT, FOLLOW HIT. Monitor AM labs, Consult Dr Kendall if plt continues to drop. Low grade fever noted, will monitor, Room changed to better monitor risk of fall as patient still with some lethargy. ABG checked yesterday, did not reflect elevated CO2. 01/03: Patient clinically stable showing some improvement. Continues on TPN. Continue to monitor for bowel movement. Still very lethargic. Platelets improving up to 61. Continue to await HIT results. Continue aggressive physical therapy. 01/04: Continue agressive Physical therapy, per surgery Continue NPO to allow ischemic bowel to resolve, hold chemical DVT prophylaxis till platelets greater than 100K, Continue TPN. serial labs, patient will need port for TPN at home, will not advance diet until bowel ischemia resolves which can probably be done Tuesday, that is adv to clears. Continue antibiotics, if fever increases repeat CT abd pelvis, not really indicated at this point. Need to wean sedation ( haldol etc), needs PT to help mobilize. Labs checked today platelet has improved anticipate port to be placed on Tuesday. Continue to hold heparin. SCDs placed 01/05: Continues to clinically improve. Discussed with surgeon today Only about 4FT small bowel left following surgery. Patient will need TPN for a long time. Anticipate port placement for tomorrow 01/06: Surgeon advancing diet to clear liquid today to see how the patient tolerates. Case management still working on health insurance application for the patient. Patient understands longer to recovery. Continue physical therapy to strengthen the patient as he may end up going home. Awaiting labs for this morning if white count continues to increase will obtain ID consultation to rule out any underlying infection. Blood is noted at this time on overview. Await repeat CT abdomen and pelvis with IV contrast. Port placement per surgeon when no evidence of systemic infection. Continue pain control. Thrombocytopenia has resolved if HIT result is negative will resume chemical prophylaxis. Plan of care discussed with the patient and nursing staff at bedside. 01/07. Diet advanced to clear liquid yesterday. CT abdomen and pelvis performed showed possible intraperitoneal fluid collection. CT guided drainage ordered to day. WBC 12.9. Phosphorus level 12?. Will repeat CMP and phosphorus. 01/08. Plan for CT-guided drainage with port placement. IR has been consulted for this. ID consulted for possible intra-abdominal infection. Patient started on IV antibiotics. Labs reviewed. He request for pain and antianxiety medications this morning. 10/8. He feels better today. Antianxiety medication prescribed made him sleep well. His port has been placed. Cultures from peritoneum shows no organism yet. 01/10. He has some abdominal discomfort. He is on pain medications. Labs reviewed showed thrombocythemia. Hematology oncology has been consulted. 01/11. Started him on oral medications [extended-release oxycodone] to see if pain can be better controlled. Needs to have insurance-Medicaid. Discussed with egg caser. He will need to have TPN at discharge. Hematology oncology recommendations appreciated-thrombocytopenia likely reactionary. Continue to monitor for now 01/12. His abdominal pain is better. Switch percocet to tramadol. Awaiting medicaid approval. Still on antibiotics. 01/13. Says percocet works better so will switch. Cultures are still negative. ID following. Plan to dc antibiotics. He will need assistance with TPN as he has no insurance. He applied for medicaid but decision is pending. 01/14: need TPN for d/c, discharge pending. Patient has no new complaint today. 01/15: Pending discharge on TPN arrangement 01/16: stop abx today, pending d/c 01/17: c/o nausea, will place on reglan, monitor BMP. cont supportive care 01/18: continue to c/o vomiting and abdominal pain. ordered CT abd/pelvis 01/19: stopped narcotics, abd/pelvis CT showed no obstruction but distended stomach. cont reglan as needed. Ambulate 01/20: N/V improved. cont TPN. discharge pending on TPN arrangement - patient unfunded 01/21: discharge pending on TPN arrangement - patient unfunded. family unable to pay for the cost. Subjective Date of service: 01/22/20 Principal diagnosis: Abdominal pain small bowel obstruction Interval history: Patient seen and examined. Medical records and medication list reviewed. No acute event overnight noted by the RN. Patient denies any chest pain or difficulty breathing. Discussed plan of care at bedside with patient. Discharge pending on TPN arrangement Objective - Exam Narrative Exam: General appearance: Present: no acute distress - EENT Eyes: Present: PERRL - Respiratory Respiratory: bilateral: CTA - Cardiovascular Rhythm: regular Heart Sounds: Present: S1 & S2 - Extremities Extremities: no ischemia - Abdominal General gastrointestinal: soft, tender, non-distended, normal bowel sounds - Psychiatric Psychiatric: appropriate mood/affect - Neurologic Neurologic: CNII-XII intact - Constitutional Vitals: Vital Signs - 12hr 01/22/20 01/22/20 01/22/20 05:21 08:00 12:10 Temperature 99.2 F 98.3 F 99.0 F Pulse Rate 99 H 140 H 89 Respiratory 18 18 18 Rate Blood Pressure 110/63 101/64 Blood Pressure 102/66 [Left] O2 Sat by Pulse 97 99 98 Oximetry - Labs CBC & Chem 7: 01/22/20 07:15 01/23/20 06:43 Labs: Abnormal lab results 01/21/20 01/22/20 01/22/20 Range/Units 23:17 05:37 07:15 RBC (3.65-5.03) M/mm3 Hgb (11.8-15.2) gm/dl Hct (35.5-45.6) % MCHC (32-34) % Plt Count (140-440) K/mm3 Lymph % (Auto) (13.4-35.0) % Lymph # (Auto) (1.2-5.4) K/mm3 Seg Neutrophils % (40.0-70.0) % Seg Neutrophils # (1.8-7.7) K/mm3 Creatinine 0.6 L (0.8-1.3) mg/dL Glucose 150 H (75-100) mg/dL POC Glucose 192 H 155 H (70-105) 01/22/20 Range/Units 07:15 RBC 2.95 L (3.65-5.03) M/mm3 Hgb 8.6 L (11.8-15.2) gm/dl Hct 24.7 L (35.5-45.6) % MCHC 35 H (32-34) % Plt Count 598 H (140-440) K/mm3 Lymph % (Auto) 9.5 L (13.4-35.0) % Lymph # (Auto) 1.0 L (1.2-5.4) K/mm3 Seg Neutrophils % 80.1 H (40.0-70.0) % Seg Neutrophils # 8.8 H (1.8-7.7) K/mm3 Creatinine (0.8-1.3) mg/dL Glucose (75-100) mg/dL POC Glucose (70-105)
[2020-01-22] MEDS: HYDROcodone/APAP 7.5-325MG-15ML ORAL LIQD PO PRN ×2 (16:41→23:22)
--- NOTE | 2020-01-22 18:32 | Event Note ---
Date: 01/22/20 Pt seen and examined, stable , continue present management.
[2020-01-22] MEDS ORDERED: TOTAL PARENTERAL NUTRITION 2,400 ML IV SCH (20:00)
[2020-01-22] MEDS: ENOXAPARIN 40 MG/0.4 ML INJ SUB-Q SCH (21:35)
[2020-01-23] MEDS: HYDROcodone/APAP 7.5-325MG-15ML ORAL LIQD PO PRN ×3 (05:33→22:26)
[2020-01-23 07:52] LABS: Alanine Aminotransferase 58 units/L (7-56); Albumin 2.6 g/dL (3.9-5); Blood Urea Nitrogen 22 mg/dL (9-20); Calcium 8.7 mg/dL (8.4-10.2); Hemolysis Index 3
[2020-01-23 07:55] LABS: BUN/Creatinine Ratio 44
[2020-01-23] MEDS: NICOTINE 21 MG/24 HR PATCH TD SCH (10:10)
[2020-01-23] MEDS: PANTOPRAZOLE 40 MG INJ IV SCH (10:11)
--- NOTE | 2020-01-23 12:57 | Progress Note ---
Assessment and Plan stable, waiting on Social security disability, continue TPN, will revise skin incision and perhaps jejunostomy in the near future. Nothing else to add at this time. Subjective Date of service: 01/23/20 Patient Reports: Positive: no new complaints Objective Vital Signs - 12hr 01/23/20 01/23/20 01/23/20 05:31 05:33 07:27 Temperature 99.1 F 98.8 F Pulse Rate 86 89 Respiratory 18 18 20 Rate Blood Pressure 96/65 Blood Pressure 105/70 [Left] O2 Sat by Pulse 97 98 Oximetry - General physical appearance no distress - Labs 01/22/20 07:15 01/23/20 06:43 Diabetes panel 01/23/20 Range/Units 06:43 Sodium 136 L D (137-145) mmol/L Potassium 3.7 (3.6-5.0) mmol/L Chloride 92.6 L (98-107) mmol/L Carbon Dioxide 34 H D (22-30) mmol/L BUN 22 H (9-20) mg/dL Creatinine 0.5 L (0.8-1.3) mg/dL Glucose 154 H (75-100) mg/dL Calcium 8.7 (8.4-10.2) mg/dL AST 30 (5-40) units/L ALT 58 H (7-56) units/L Alkaline Phosphatase 152 H (35-129) units/L Total Protein 6.5 (6.3-8.2) g/dL Albumin 2.6 L (3.9-5) g/dL Triglycerides 69 (2-149) mg/dL Calcium panel 01/23/20 Range/Units 06:43 Calcium 8.7 (8.4-10.2) mg/dL Phosphorus 4.00 (2.5-4.5) mg/dL Albumin 2.6 L (3.9-5) g/dL Pituitary panel 01/23/20 Range/Units 06:43 Sodium 136 L D (137-145) mmol/L Potassium 3.7 (3.6-5.0) mmol/L Chloride 92.6 L (98-107) mmol/L Carbon Dioxide 34 H D (22-30) mmol/L BUN 22 H (9-20) mg/dL Creatinine 0.5 L (0.8-1.3) mg/dL Glucose 154 H (75-100) mg/dL Calcium 8.7 (8.4-10.2) mg/dL Adrenal panel 01/23/20 Range/Units 06:43 Sodium 136 L D (137-145) mmol/L Potassium 3.7 (3.6-5.0) mmol/L Chloride 92.6 L (98-107) mmol/L Carbon Dioxide 34 H D (22-30) mmol/L BUN 22 H (9-20) mg/dL Creatinine 0.5 L (0.8-1.3) mg/dL Glucose 154 H (75-100) mg/dL Calcium 8.7 (8.4-10.2) mg/dL Total Bilirubin 0.60 (0.1-1.2) mg/dL AST 30 (5-40) units/L ALT 58 H (7-56) units/L Alkaline Phosphatase 152 H (35-129) units/L Total Protein 6.5 (6.3-8.2) g/dL Albumin 2.6 L (3.9-5) g/dL
--- NOTE | 2020-01-23 17:26 | Progress Note ---
Assessment and Plan -- Nausea/vomiting likely from narcotics induced, limit use of narcotic, reglan as needed Ct abd/pelvis showed no obstruction, distended stomach General surgery recommended to stop all narcotics, strict n.p.o. except ice chips -- Small bowel obstruction Status post exploratory lap x3. per surgery note: Some ischemic bowel, S/P Hemicolectomy, Fistula washed out. CT abdomen and pelvis shows intraperitoneal fluid collection. Now s/p CT-guided paracentesis. Culture negative Monitor vital signs and labs. ID on board. Patient treated with ceftriaxone, Flagyl and fluconazole for possible intra-abdominal infection. Cultures negative so far. -- Dehydration: Resolved Patient well-hydrated Continue IV hydration --Acute Metabolic Encephalopathy with subsequent acute respiratory failure Resolved -- Metabolic acidosis Resolved -- ANEMIA of CD Continue to monitor hemoglobin Iron supplements -- Thrombocythemia Initially had thrombocytopenia and there was a concern for HIT blood test was negative Now has been thrombocythemia with platelet count up to 900s. This is likely reactive. Hematology oncology recommendations appreciated -- Severe protein calorie malnutrition cachexia On tpn. As per surgery, will be going home with TPN -- DVT prophylaxis Lovenox 40 mg daily. Brief History Patient is a 39-year-old F [place] male with a past medical history of right- sided nephrectomy status post Wilms tumor and appendectomy both of which occurred in the late 80s who is presenting with abdominal pain. Patient states for the past 2 days he has had some abdominal distention in the right lower q uadrant and crampy 10 out of 10 pain. He has had multiple episodes of nausea and vomiting. Denied fever chills cough cold or congestion. On December 30, [address] showed patient to have free air in colon. Surgical intervention was required. Patient had surgery had partial hemicolectomy during exploratory laparotomy was subsequently intubated and transferred to the intensive care unit. On December 31, 2019 patient returned to the OR for an additional surgery. After initial extubation, Patient was not follow commands agitated unable to really protect airways and therefore was reintubated. Patient now extubated, being monitored at surgical unit. Need prolong TPN, CM working on d/c planning. patient is unfunded. Daily course: 01/02: s/p 2 UNITS OF FFP, Mild improvement in PLT, FOLLOW HIT. Monitor AM labs, Consult Dr Kendall if plt continues to drop. Low grade fever noted, will monitor, Room changed to better monitor risk of fall as patient still with some lethargy. ABG checked yesterday, did not reflect elevated CO2. 01/03: Patient clinically stable showing some improvement. Continues on TPN. Continue to monitor for bowel movement. Still very lethargic. Platelets improving up to 61. Continue to await HIT results. Continue aggressive physical therapy. 01/04: Continue agressive Physical therapy, per surgery Continue NPO to allow ischemic bowel to resolve, hold chemical DVT prophylaxis till platelets greater than 100K, Continue TPN. serial labs, patient will need port for TPN at home, will not advance diet until bowel ischemia resolves which can probably be done Tuesday, that is adv to clears. Continue antibiotics, if fever increases repeat CT abd pelvis, not really indicated at this point. Need to wean sedation ( haldol etc), needs PT to help mobilize. Labs checked today platelet has improved anticipate port to be placed on Tuesday. Continue to hold heparin. SCDs placed 01/05: Continues to clinically improve. Discussed with surgeon today Only about 4FT small bowel left following surgery. Patient will need TPN for a long time. Anticipate port placement for tomorrow 01/06: Surgeon advancing diet to clear liquid today to see how the patient tolerates. Case management still working on health insurance application for the patient. Patient understands longer to recovery. Continue physical therapy to strengthen the patient as he may end up going home. Awaiting labs for this morning if white count continues to increase will obtain ID consultation to rule out any underlying infection. Blood is noted at this time on overview. Await repeat CT abdomen and pelvis with IV contrast. Port placement per surgeon when no evidence of systemic infection. Continue pain control. Thrombocytopenia has resolved if HIT result is negative will resume chemical prophylaxis. Plan of care discussed with the patient and nursing staff at bedside. 01/07. Diet advanced to clear liquid yesterday. CT abdomen and pelvis performed showed possible intraperitoneal fluid collection. CT guided drainage ordered to day. WBC 12.9. Phosphorus level 12?. Will repeat CMP and phosphorus. 01/08. Plan for CT-guided drainage with port placement. IR has been consulted for this. ID consulted for possible intra-abdominal infection. Patient started on IV antibiotics. Labs reviewed. He request for pain and antianxiety medications this morning. 10/8. He feels better today. Antianxiety medication prescribed made him sleep well. His port has been placed. Cultures from peritoneum shows no organism yet. 01/10. He has some abdominal discomfort. He is on pain medications. Labs reviewed showed thrombocythemia. Hematology oncology has been consulted. 01/11. Started him on oral medications [extended-release oxycodone] to see if pain can be better controlled. Needs to have insurance-Medicaid. Discussed with telephonic nurse case manager. He will need to have TPN at discharge. Hematology oncology recommendations appreciated-thrombocytopenia likely reactionary. Continue to monitor for now 01/12. His abdominal pain is better. Switch percocet to tramadol. Awaiting medicaid approval. Still on antibiotics. 01/13. Says percocet works better so will switch. Cultures are still negative. ID following. Plan to dc antibiotics. He will need assistance with TPN as he has no insurance. He applied for medicaid but decision is pending. 01/14: need TPN for d/c, discharge pending. Patient has no new complaint today. 01/15: Pending discharge on TPN arrangement 01/16: stop abx today, pending d/c 01/17: c/o nausea, will place on reglan, monitor BMP. cont supportive care 01/18: continue to c/o vomiting and abdominal pain. ordered CT abd/pelvis 01/19: stopped narcotics, abd/pelvis CT showed no obstruction but distended stomach. cont reglan as needed. Ambulate 01/20: N/V improved. cont TPN. discharge pending on TPN arrangement - patient unfunded 01/21: discharge pending on TPN arrangement - patient unfunded. family unable to pay for the cost. 01/22: clinically stable, discharge pending on TPN arrangement - patient unfunded. family unable to pay for the cost. Subjective Date of service: 01/16/20 Principal diagnosis: Abdominal pain small bowel obstruction Interval history: Patient seen and examined. Medical records and medication list reviewed. No acute event overnight noted by the RN. Patient denies any chest pain or difficulty breathing. Discussed plan of care at bedside with patient. Discharge pending on TPN arrangement Objective - Exam Narrative Exam: General appearance: Present: no acute distress - EENT Eyes: Present: PERRL - Respiratory Respiratory: bilateral: CTA - Cardiovascular Rhythm: regular Heart Sounds: Present: S1 & S2 - Extremities Extremities: no ischemia - Abdominal General gastrointestinal: soft, tender, non-distended, normal bowel sounds - Psychiatric Psychiatric: appropriate mood/affect - Neurologic Neurologic: CNII-XII intact - Constitutional Vitals: Vital Signs - 12hr 01/23/20 01/23/20 01/23/20 05:31 05:33 07:27 Temperature 99.1 F 98.8 F Pulse Rate 86 89 Respiratory 18 18 20 Rate Blood Pressure 96/65 Blood Pressure 105/70 [Left] O2 Sat by Pulse 97 98 Oximetry 01/23/20 01/23/20 11:43 16:04 Temperature 98.6 F 98.4 F Pulse Rate 93 H 90 Respiratory 20 20 Rate Blood Pressure 106/71 Blood Pressure 116/80 [Left] O2 Sat by Pulse 99 100 Oximetry - Labs CBC & Chem 7: 01/22/20 07:15 01/23/20 06:43 Labs: Abnormal lab results 01/23/20 01/23/20 01/23/20 Range/Units 00:06 05:50 06:43 Sodium 136 L D (137-145) mmol/L Chloride 92.6 L (98-107) mmol/L Carbon Dioxide 34 H D (22-30) mmol/L BUN 22 H (9-20) mg/dL Creatinine 0.5 L (0.8-1.3) mg/dL Glucose 154 H (75-100) mg/dL POC Glucose 222 H 150 H (70-105) mg/dL ALT 58 H (7-56) units/L Alkaline Phosphatase 152 H (35-129) units/L Albumin 2.6 L (3.9-5) g/dL
[2020-01-23] MEDS ORDERED: TOTAL PARENTERAL NUTRITION 2,400 ML IV SCH (20:00)
[2020-01-23] MEDS ORDERED: FAT EMULSIONS 20% 250 ML IV SCH (20:00)
[2020-01-23] MEDS: ENOXAPARIN 40 MG/0.4 ML INJ SUB-Q SCH (22:22)
[2020-01-24] MEDS: HYDROcodone/APAP 7.5-325MG-15ML ORAL LIQD PO PRN ×3 (04:47→21:20)
--- NOTE | 2020-01-24 07:14 | Event Note ---
Date: 01/24/20 POD , VSS AF, I suspect patient has been taking in some PO, this will cause problems with gastric distension, I will consider taking patient downstairs to OR and perform minor revision of his skin incision, and perhaps minor revision of jejunostomy, the timing is really not appropriate to reexplore abdomen if I can avoid it because of the extensive inflammation from his previous 3 surgeries, he needs more time for the inflammation to subside, I will simply try to make his ostomy more conducive to allow effective colostomy bag/ avoid leakage, and attempt skin closure to seal small mid incision leakage which is a result of probable transudative fluid in his abd cavity which I DO NOT think is infected. I have attempted to contact [place]/ surgery but they did not return my calls, the patient apparently not a candidate for transfer because of his lack of funding. I will try again to contact them. Meanwhile, we can attempt to qualify the patient for some type of funding/ apparently Medicaid ineligible, social security disability in progress. Continue cycling TPN, nutritional support.
[2020-01-24] MEDS: NICOTINE 21 MG/24 HR PATCH TD SCH (09:46)
[2020-01-24] MEDS: PANTOPRAZOLE 40 MG INJ IV SCH (09:46)
[2020-01-24 10:01] LABS: Blood Urea Nitrogen 23 mg/dL (9-20); Calcium 8.9 mg/dL (8.4-10.2); Hemolysis Index 4
[2020-01-24 10:07] LABS: BUN/Creatinine Ratio 38
[2020-01-24] MEDS ORDERED: TOTAL PARENTERAL NUTRITION 3,000 ML IV SCH (20:00)
--- NOTE | 2020-01-24 20:06 | Progress Note ---
Assessment and Plan -- Nausea/vomiting likely from narcotics induced, limit use of narcotic, reglan as needed Ct abd/pelvis showed no obstruction, distended stomach General surgery recommended to stop all narcotics, strict n.p.o. except ice chips -- Small bowel obstruction Status post exploratory lap x3. per surgery note: Some ischemic bowel, S/P Hemicolectomy, Fistula washed out. CT abdomen and pelvis shows intraperitoneal fluid collection. Now s/p CT-guided paracentesis. Culture negative Monitor vital signs and labs. ID on board. Patient treated with ceftriaxone, Flagyl and fluconazole for possible intra-abdominal infection. Cultures negative so far. -- Dehydration: Resolved Patient well-hydrated Continue IV hydration --Acute Metabolic Encephalopathy with subsequent acute respiratory failure Resolved -- Metabolic acidosis Resolved -- ANEMIA of CD Continue to monitor hemoglobin Iron supplements -- Thrombocythemia Initially had thrombocytopenia and there was a concern for HIT blood test was negative Now has been thrombocythemia with platelet count up to 900s. This is likely reactive. Hematology oncology recommendations appreciated -- Severe protein calorie malnutrition cachexia On tpn. As per surgery, will be going home with TPN -- DVT prophylaxis Lovenox 40 mg daily. Subjective Date of service: 01/24/20 Principal diagnosis: Abdominal pain small bowel obstruction Interval history: Subjective Date of service: 01/24/20 Principal diagnosis: Abdominal pain small bowel obstruction Interval history: Patient seen and examined. Medical records and medication list reviewed. No acute event overnight noted by the RN. Patient denies any chest pain or difficulty breathing. Discussed plan of care at bedside with patient. Discharge pending on TPN arrangement Brief History Patient is a 39-year-old F [place] male with a past medical history of right- sided nephrectomy status post Wilms tumor and appendectomy both of which occurred in the late 80s who is presenting with abdominal pain. Patient states for the past 2 days he has had some abdominal distention in the right lower quadrant and crampy 10 out of 10 pain. He has had multiple episodes of nausea and vomiting. Denied fever chills cough cold or congestion. On December 30, [address] showed patient to have free air in colon. Surgical intervention was required. Patient had surgery had partial hemicolectomy during exploratory laparotomy was subsequently intubated and transferred to the intensive care unit. On December 31, 2019 patient returned to the OR for an additional surgery. After initial extubation, Patient was not follow commands agitated unable to really protect airways and therefore was reintubated. Patient now extubated, being monitored at surgical unit. Need prolong TPN, CM working on d/c planning. patient is unfunded. Daily course: 01/02: s/p 2 UNITS OF FFP, Mild improvement in PLT, FOLLOW HIT. Monitor AM labs, Consult Dr Kendall if plt continues to drop. Low grade fever noted, will monitor, Room changed to better monitor risk of fall as patient still with some lethargy. ABG checked yesterday, did not reflect elevated CO2. 01/03: Patient clinically stable showing some improvement. Continues on TPN. Continue to monitor for bowel movement. Still very lethargic. Platelets improving up to 61. Continue to await HIT results. Continue aggressive physical therapy. 01/04: Continue agressive Physical therapy, per surgery Continue NPO to allow ischemic bowel to resolve, hold chemical DVT prophylaxis till platelets greater than 100K, Continue TPN. serial labs, patient will need port for TPN at home, will not advance diet until bowel ischemia resolves which can probably be done Tuesday, that is adv to clears. Continue antibiotics, if fever increases repeat CT abd pelvis, not really indicated at this point. Need to wean sedation ( haldol etc), needs PT to help mobilize. Labs checked today platelet has improved anticipate port to be placed on Tuesday. Continue to hold heparin. SCDs placed 01/05: Continues to clinically improve. Discussed with surgeon today Only about 4FT small bowel left following surgery. Patient will need TPN for a long time. Anticipate port placement for tomorrow 01/06: Surgeon advancing diet to clear liquid today to see how the patient tolerates. Case management still working on health insurance application for the patient. Patient understands longer to recovery. Continue physical therapy to strengthen the patient as he may end up going home. Awaiting labs for this morning if white count continues to increase will obtain ID consultation to rule out any underlying infection. Blood is noted at this time on overview. Await repeat CT abdomen and pelvis with IV contrast. Port placement per surgeon when no evidence of systemic infection. Continue pain control. Thrombocytopenia has resolved if HIT result is negative will resume chemical prophylaxis. Plan of care discussed with the patient and nursing staff at bedside. 01/07. Diet advanced to clear liquid yesterday. CT abdomen and pelvis performed showed possible intraperitoneal fluid collection. CT guided drainage ordered today. WBC 12.9. Phosphorus level 12?. Will repeat CMP and phosphorus. 01/08. Plan for CT-guided drainage with port placement. IR has been consulted for this. ID consulted for possible intra-abdominal infection. Patient started on IV antibiotics. Labs reviewed. He request for pain and antianxiety medications this morning. 01/09. He feels better today. Antianxiety medication prescribed made him sleep well. His port has been placed. Cultures from peritoneum shows no organism yet. 01/10. He has some abdominal discomfort. He is on pain medications. Labs reviewed showed thrombocythemia. Hematology oncology has been consulted. 01/11. Started him on oral medications [extended-release oxycodone] to see if pain can be better controlled. Needs to have insurance-Medicaid. Discussed with bilingual patient support caseworker. He will need to have TPN at discharge. Hematology oncology recommendations appreciated-thrombocytopenia likely reactionary. Continue to monitor for now 01/12. His abdominal pain is better. Switch percocet to tramadol. Awaiting medicaid approval. Still on antibiotics. 01/13. Says percocet works better so will switch. Cultures are still negative. ID following. Plan to dc antibiotics. He will need assistance with TPN as he has no insurance. He applied for medicaid but decision is pending. 01/14: need TPN for d/c, discharge pending. Patient has no new complaint today. 01/15: Pending discharge on TPN arrangement 01/16: stop abx today, pending d/c 01/17: c/o nausea, will place on reglan, monitor BMP. cont supportive care 01/18: continue to c/o vomiting and abdominal pain. ordered CT abd/pelvis 01/19: stopped narcotics, abd/pelvis CT showed no obstruction but distended stomach. cont reglan as needed. Ambulate 01/20: N/V improved. cont TPN. discharge pending on TPN arrangement - patient unfunded 01/21: discharge pending on TPN arrangement - patient unfunded. family unable to pay for the cost. 01/22: clinically stable, discharge pending on TPN arrangement - patient unfunded. family unable to pay for the cost. 01/24/2020 clinically stable-discharge pending on TPN arrangement, patient is unfunded Objective - Constitutional Vitals: Vital Signs - 12hr 01/24/20 01/24/20 16:08 19:26 Temperature 98.5 F 98.3 F Pulse Rate 94 H 86 Respiratory 18 18 Rate Blood Pressure 94/57 116/73 O2 Sat by Pulse 100 100 Oximetry General appearance: Present: no acute distress, well-nourished - EENT Eyes: PERRL, EOM intact ENT: hearing intact, clear oral mucosa Ears: bilateral: normal - Neck Neck: supple, normal ROM - Respiratory Respiratory effort: normal Respiratory: bilateral: CTA - Breasts Breasts: normal - Cardiovascular Heart rate: 78 Rhythm: regular Heart Sounds: Present: S1 & S2. Absent: gallop, rub Extremities: pulses intact, No edema, normal color, Full ROM - Gastrointestinal General gastrointestinal: Present: soft, non-tender, distended, hypoactive bowel sounds Rectal Exam: deferred - Genitourinary Male genitourinary: normal - Integumentary Integumentary: clear, warm, dry - Musculoskeletal Musculoskeletal: 1, strength equal bilaterally - Neurologic Neurologic: moves all extremities - Psychiatric Psychiatric: memory intact, appropriate mood/affect, intact judgment & insight - Labs CBC & Chem 7: 01/22/20 07:15 01/24/20 07:56 Labs: Abnormal lab results 01/24/20 01/24/20 Range/Units 00:49 07:56 Chloride 96.7 L (98-107) mmol/L BUN 23 H (9-20) mg/dL Creatinine 0.6 L (0.8-1.3) mg/dL Glucose 140 H (75-100) mg/dL POC Glucose 192 H (70-105) mg/dL
[2020-01-24] MEDS: ENOXAPARIN 40 MG/0.4 ML INJ SUB-Q SCH (22:51)
[2020-01-25 08:05] LABS: Basophils % (Auto) 0.2 % (0.0-1.8); Eosinophils # (Auto) 0.1 K/mm3 (0.0-0.4); Eosinophils % (Auto) 1.3 % (0.0-4.3); Hematocrit 26.4 % (35.5-45.6); Hemoglobin 9.4 gm/dl (11.8-15.2); Lymphocytes # (Auto) 1.2 K/mm3 (1.2-5.4); Lymphocytes % (Auto) 13.2 % (13.4-35.0); Mean Corpuscular HGB Conc 36 % (32-34); Mean Corpuscular Volume 83 fl (84-94); Monocytes # (Auto) 0.8 K/mm3 (0.0-0.8); Monocytes % (Auto) 9.1 % (0.0-7.3); Platelet Count 556 K/mm3 (140-440); Red Blood Count 3.17 M/mm3 (3.65-5.03); Red Cell Distribution Width 15.4 % (13.2-15.2)
--- NOTE | 2020-01-25 08:08 | Progress Note ---
Assessment and Plan -- Nausea/vomiting likely from narcotics induced, limit use of narcotic, reglan as needed Ct abd/pelvis showed no obstruction, distended stomach General surgery recommended to stop all narcotics, strict n.p.o. except ice chips -- Small bowel obstruction Status post exploratory lap x3. per surgery note: Some ischemic bowel, S/P Hemicolectomy, Fistula washed out. CT abdomen and pelvis shows intraperitoneal fluid collection. Now s/p CT-guided paracentesis. Culture negative Monitor vital signs and labs. ID on board. Patient treated with ceftriaxone, Flagyl and fluconazole for possible intra-abdominal infection. Cultures negative so far. -- Dehydration: Resolved Patient well-hydrated Continue IV hydration --Acute Metabolic Encephalopathy with subsequent acute respiratory failure Resolved -- Metabolic acidosis Resolved -- ANEMIA of CD Continue to monitor hemoglobin Iron supplements -- Thrombocythemia Initially had thrombocytopenia and there was a concern for HIT blood test was negative Now has been thrombocythemia with platelet count up to 900s. This is likely reactive. Hematology oncology recommendations appreciated -- Severe protein calorie malnutrition cachexia On tpn. As per surgery, will be going home with TPN - Patient Problems (1) DVT prophylaxis Current Visit: Yes Status: Deleted Plan to address problem: Anticoagulation being held secondary to surgery and risk of bleeding. (2) Dehydration Current Visit: Yes Status: Deleted Plan to address problem: Continue TPN for now monitor electrolytes daily. (3) Small bowel obstruction Current Visit: Yes Status: Deleted Plan to address problem: Patient has had extensive surgical correction with colostomy. Now has inability to absorb nutrients. Patient been scheduled on TPN. Placed on hospice because he would not be to take TPN for the rest of his life. At this point goal will be for me to schedule patient 3 to 5 days of TPN with hospice and then discontinue if need be. At least patient will be able to spend time and say goodbyes to family member and see how his hospice course process progresses. (4) Metabolic acidosis Current Visit: Yes Status: Acute Plan to address problem: Has improved from 4.6-3. Post surgery. Subjective Date of service: 01/25/20 Principal diagnosis: Abdominal pain small bowel obstruction Interval history: Patient is a 39-year-old F [place] male with a past medical history of right- sided nephrectomy status post Wilms tumor and appendectomy both of which occurred in the late 80s who is presenting with abdominal pain. Patient states for the past 2 days he has had some abdominal distention in the right lower quadrant and crampy 10 out of 10 pain. He has had multiple episodes of nausea and vomiting. Denies fever chills cough cold or congestion. On December 30, [address] showed patient to have free air in colon. Surgical intervention was required. Patient had surgery had partial hemicolectomy during exploratory laparotomy was subsequently intubated and transferred to the intensive care unit. On December 31, 2019 patient returned to the OR for an additional surgery. After initial extubation. Patient was not follow commands agitated unable to really protect airways and therefore was reintubated. Remains intubated for the next 24 hours. Severity scale (0 -1Patient is a 39-year-old F [place] male with a past medical history of right-sided nephrectomy status post Wilms tumor and appendectomy both of which occurred in the late 80s who is presenting with abdominal pain. Patient states for the past 2 days he has had some abdominal distention in the right lower quadrant and crampy 10 out of 10 pain. He has had multiple episodes of nausea and vomiting. Denied fever chills cough cold or congestion. On December 30, [address] showed patient to have free air in colon. Surgical intervention was required. Patient had surgery had partial hemicolectomy during exploratory laparotomy was subsequently intubated and transferred to the intensive care unit. On December 31, 2019 patient returned to the OR for an additional surgery. After initial extubation, Patient was not follow commands agitated unable to really protect airways and therefore was reintubated. Patient now extubated, being monitored at surgical unit. Need prolong TPN, CM working on d/c planning. patient is unfunded. Daily course: 01/02: s/p 2 UNITS OF FFP, Mild improvement in PLT, FOLLOW HIT. Monitor AM labs, Consult Dr Kendall if plt continues to drop. Low grade fever noted, will monitor, Room changed to better monitor risk of fall as patient still with some lethargy. ABG checked yesterday, did not reflect elevated CO2. 01/03: Patient clinically stable showing some improvement. Continues on TPN. Continue to monitor for bowel movement. Still very lethargic. Platelets improving up to 61. Continue to await HIT results. Continue aggressive physical therapy. 01/04: Continue agressive Physical therapy, per surgery Continue NPO to allow ischemic bowel to resolve, hold chemical DVT prophylaxis till platelets greater than 100K, Continue TPN. serial labs, patient will need port for TPN at home, will not advance diet until bowel ischemia resolves which can probably be done Tuesday, that is adv to clears. Continue antibiotics, if fever increases repeat CT abd pelvis, not really indicated at this point. Need to wean sedation ( haldol etc), needs PT to help mobilize. Labs checked today platelet has improved anticipate port to be placed on Tuesday. Continue to hold heparin. SCDs placed 01/05: Continues to clinically improve. Discussed with surgeon today Only about 4FT small bowel left following surgery. Patient will need TPN for a long time. Anticipate port placement for tomorrow 01/06: Surgeon advancing diet to clear liquid today to see how the patient tolerates. Case management still working on health insurance application for the patient. Patient understands longer to recovery. Continue physical therapy to strengthen the patient as he may end up going home. Awaiting labs for this morning if white count continues to increase will obtain ID consultation to rule out any underlying infection. Blood is noted at this time on overview. Await repeat CT abdomen and pelvis with IV contrast. Port placement per surgeon when no evidence of systemic infection. Continue pain control. Thrombocytopenia has resolved if HIT result is negative will resume chemical prophylaxis. Plan of care discussed with the patient and nursing staff at bedside. 01/07. Diet advanced to clear liquid yesterday. CT abdomen and pelvis performed showed possible intraperitoneal fluid collection. CT guided drainage ordered today. WBC 12.9. Phosphorus level 12?. Will repeat CMP and phosphorus. 01/08. Plan for CT-guided drainage with port placement. IR has been consulted for this. ID consulted for possible intra-abdominal infection. Patient started on IV antibiotics. Labs reviewed. He request for pain and antianxiety medic ations this morning. 01/09. He feels better today. Antianxiety medication prescribed made him sleep well. His port has been placed. Cultures from peritoneum shows no organism yet. 01/10. He has some abdominal discomfort. He is on pain medications. Labs reviewed showed thrombocythemia. Hematology oncology has been consulted. 01/11. Started him on oral medications [extended-release oxycodone] to see if pain can be better controlled. Needs to have insurance-Medicaid. Discussed with case assembler. He will need to have TPN at discharge. Hematology oncology recommendations appreciated-thrombocytopenia likely reactionary. Continue to monitor for now 01/12. His abdominal pain is better. Switch percocet to tramadol. Awaiting medicaid approval. Still on antibiotics. 01/13. Says percocet works better so will switch. Cultures are still negative. ID following. Plan to dc antibiotics. He will need assistance with TPN as he has no insurance. He applied for medicaid but decision is pending. 01/14: need TPN for d/c, discharge pending. Patient has no new complaint today. 01/15: Pending discharge on TPN arrangement 01/16: stop abx today, pending d/c 01/17: c/o nausea, will place on reglan, monitor BMP. cont supportive care 01/18: continue to c/o vomiting and abdominal pain. ordered CT abd/pelvis 01/19: stopped narcotics, abd/pelvis CT showed no obstruction but distended stomach. cont reglan as needed. Ambulate 01/20: N/V improved. cont TPN. discharge pending on TPN arrangement - patient unfunded 01/21: discharge pending on TPN arrangement - patient unfunded. family unable to pay for the cost. 01/22: clinically stable, discharge pending on TPN arrangement - patient unfunded. family unable to pay for the cost. 01/24/2020 clinically stable-discharge pending on TPN arrangement, patient is unfunded 01/24/2020 had conversation with family member today. Patient has been unable to tolerate any p.o. Patient does not have any reabsorption of nutrients. Patient has been on TPN. Thought process was that the patient will never be able to reabsorb nutrients and therefore will need to be on lifelong TPN. Patient wants to try thicker food. When patient eats he has too much overflow in the colostomy tube. Unable to reabsorb any nutrients. Family was informed a bout requirements of TPN once discharge. Patient is scheduled to go back for revision of a colostomy today. Objective - Constitutional Vitals: Vital Signs - 12hr 01/25/20 01/25/20 00:04 04:08 Temperature 98.9 F 98.9 F Pulse Rate 107 H 107 H Respiratory 18 18 Rate Blood Pressure 117/81 102/73 O2 Sat by Pulse 98 98 Oximetry General appearance: Present: cachectic, other (Thin emaciated appearance.) - EENT ENT: other (Temporal wasting dry oral mucosa.) - Respiratory Respiratory effort: normal Respiratory: bilateral: CTA Extremity abnormal: other (Patient thin generalized deconditioning. Atrophy in lower extremities. Abdomen multiple colostomy sites with surgical scar fill with som.) - Musculoskeletal Musculoskeletal: generalized weakness - Neurologic Neurologic: CNII-XII intact, focal deficits - Psychiatric Psychiatric: appropriate mood/affect - Labs CBC & Chem 7: 01/25/20 07:54 01/25/20 07:54 Labs: Abnormal lab results 01/24/20 01/25/20 01/25/20 Range/Units 07:56 00:18 06:44 RBC (3.65-5.03) M/mm3 Hgb (11.8-15.2) gm/dl Hct (35.5-45.6) % MCV (84-94) fl MCHC (32-34) % RDW (13.2-15.2) % Plt Count (140-440) K/mm3 Lymph % (Auto) (13.4-35.0) % [place] % (Auto) (0.0-7.3) % Seg Neutrophils % (40.0-70.0) % Chloride 96.7 L (98-107) mmol/L BUN 23 H (9-20) mg/dL Creatinine 0.6 L (0.8-1.3) mg/dL Glucose 140 H (75-100) mg/dL POC Glucose 214 H 155 H (70-105) mg/dL 01/25/20 Range/Units 07:54 RBC 3.17 L (3.65-5.03) M/mm3 Hgb 9.4 L (11.8-15.2) gm/dl Hct 26.4 L (35.5-45.6) % MCV 83 L (84-94) fl MCHC 36 H (32-34) % RDW 15.4 H (13.2-15.2) % Plt Count 556 H (140-440) K/mm3 Lymph % (Auto) 13.2 L (13.4-35.0) % [place] % (Auto) 9.1 H (0.0-7.3) % Seg Neutrophils % 76.2 H (40.0-70.0) % Chloride (98-107) mmol/L BUN (9-20) mg/dL Creatinine (0.8-1.3) mg/dL Glucose (75-100) mg/dL POC Glucose (70-105) mg/dL
[2020-01-25 08:29] LABS: Blood Urea Nitrogen 24 mg/dL (9-20); Calcium 8.9 mg/dL (8.4-10.2); Hemolysis Index 4
[2020-01-25] MEDS: HYDROcodone/APAP 7.5-325MG-15ML ORAL LIQD PO PRN ×3 (08:30→22:00)
[2020-01-25 08:35] LABS: BUN/Creatinine Ratio 48
[2020-01-25] MEDS: PANTOPRAZOLE 40 MG INJ IV SCH (10:45)
[2020-01-25] MEDS: NICOTINE 21 MG/24 HR PATCH TD SCH (10:45)
[2020-01-25] MEDS ORDERED: TOTAL PARENTERAL NUTRITION 3,000 ML IV SCH (20:00)
[2020-01-25] MEDS ORDERED: FAT EMULSIONS 20% 250 ML IV SCH (20:00)
[2020-01-25] MEDS: ENOXAPARIN 40 MG/0.4 ML INJ SUB-Q SCH (21:55)
[2020-01-26] MEDS: HYDROcodone/APAP 7.5-325MG-15ML ORAL LIQD PO PRN ×3 (09:30→22:22)
[2020-01-26] MEDS: NICOTINE 21 MG/24 HR PATCH TD SCH (10:05)
[2020-01-26 10:06] LABS: Blood Urea Nitrogen 24 mg/dL (9-20); Calcium 9.2 mg/dL (8.4-10.2); Hemolysis Index 3
[2020-01-26] MEDS: PANTOPRAZOLE 40 MG INJ IV SCH (10:07)
[2020-01-26 10:15] LABS: BUN/Creatinine Ratio 40
--- NOTE | 2020-01-26 12:37 | Progress Note ---
Assessment and Plan I have contacted Dr. Bossman Garvey's nurse at [facility], and had a long discussion regarding the management of this patient. I will unfortunately have to take the patient back to OR next week to revise his jejunostomy to establish continent os [place] bag to avoid problems with skin surround ostomy, This is not optimum but is necessary for [facility] planning. ffffffffffffffffffffffffffffffffffffffffffffffffffffffffffffffffffffffffffffffff fffff ffffffffffffffffffffffffffffffffffffffffffffffffffffffffffffffffffffffffffffffff ffffffffffffffffffff ffffffffffffffffffffffffffffffffffffffffffffffffffffffffffffffffffffffffffffffff ffffffffffffffffffff ffffffffffffffffffffffffffffffffffffffffffffffffffffffffffffffffffffffffffffffff ffffffffffffffffffff ffffffffffffffffffffffffffffffffffffffffffffffffffffffffffffffffffffffffffffffff ffffffffffffffffffff ffffffffffffffffffffffffffffffffffffffffffffffffffffffffffffffffffffffffffffffff ffffffffffffffffffff ffffffffffffffffffffffffffffffffffffffffffffffffffffffffffffffffffffffffffffffff ffffffffffffffffffff ffffffffffffffffffffffffffffffffffffffffffffffffffffffffffffffffffffffffffffffff ffffffffffffffffffff ffffffffffffffffffffffffffffffffffffffffffffffffffffffffffffffffffffffffffffffff ffffffffffffffffffff ffffffffffffffffffffffffffffffffffffffffffffffffffffffffffffffffffffffffffffffff ffffffffffffffffffff ffffffffffffffffffffffffffffffffffffffffffffffffffffffffffffffffff Subjective Date of service: 01/26/20 Patient Reports: Positive: other (ongoing problems with leaking ostomy bag, patient keeps taking it off and reapplying it with resulting skin irritation from bile acids,etc.) Objective Vital Signs - 12hr 01/26/20 01/26/20 01/26/20 03:32 03:36 07:56 Temperature 98.3 F 98.2 F 98.5 F Pulse Rate 102 H Respiratory 18 18 20 Rate Blood Pressure 115/79 98/62 124/74 Blood Pressure [Left] O2 Sat by Pulse 98 Oximetry 01/26/20 08:00 Temperature 98.5 F Pulse Rate 84 Respiratory 20 Rate Blood Pressure Blood Pressure 124/74 [Left] O2 Sat by Pulse 98 Oximetry - Labs 01/25/20 07:54 01/26/20 08:50 Diabetes panel 01/26/20 Range/Units 08:50 Sodium 134 L (137-145) mmol/L Potassium 4.3 (3.6-5.0) mmol/L Chloride 95.1 L (98-107) mmol/L Carbon Dioxide 29 (22-30) mmol/L BUN 24 H (9-20) mg/dL Creatinine 0.6 L (0.8-1.3) mg/dL Glucose 88 (75-100) mg/dL Calcium 9.2 (8.4-10.2) mg/dL Calcium panel 01/26/20 Range/Units 08:50 Calcium 9.2 (8.4-10.2) mg/dL Phosphorus 4.20 (2.5-4.5) mg/dL Pituitary panel 01/26/20 Range/Units 08:50 Sodium 134 L (137-145) mmol/L Potassium 4.3 (3.6-5.0) mmol/L Chloride 95.1 L (98-107) mmol/L Carbon Dioxide 29 (22-30) mmol/L BUN 24 H (9-20) mg/dL Creatinine 0.6 L (0.8-1.3) mg/dL Glucose 88 (75-100) mg/dL Calcium 9.2 (8.4-10.2) mg/dL Adrenal panel 01/26/20 Range/Units 08:50 Sodium 134 L (137-145) mmol/L Potassium 4.3 (3.6-5.0) mmol/L Chloride 95.1 L (98-107) mmol/L Carbon Dioxide 29 (22-30) mmol/L BUN 24 H (9-20) mg/dL Creatinine 0.6 L (0.8-1.3) mg/dL Glucose 88 (75-100) mg/dL Calcium 9.2 (8.4-10.2) mg/dL
--- NOTE | 2020-01-26 16:20 | Progress Note ---
Assessment and Plan -- Nausea/vomiting likely from narcotics induced, limit use of narcotic, reglan as needed Ct abd/pelvis showed no obstruction, distended stomach General surgery recommended to stop all narcotics, strict n.p.o. except ice chips -- Small bowel obstruction Status post exploratory lap x3. per surgery note: Some ischemic bowel, S/P Hemicolectomy, Fistula washed out. CT abdomen and pelvis shows intraperitoneal fluid collection. Now s/p CT-guided paracentesis. Culture negative Monitor vital signs and labs. ID on board. Patient treated with ceftriaxone, Flagyl and fluconazole for possible intra-abdominal infection. Cultures negative so far. -- Dehydration: Resolved Patient well-hydrated Continue IV hydration --Acute Metabolic Encephalopathy with subsequent acute respiratory failure Resolved -- Metabolic acidosis Resolved -- ANEMIA of CD Continue to monitor hemoglobin Iron supplements -- Thrombocythemia Initially had thrombocytopenia and there was a concern for HIT blood test was negative Now has been thrombocythemia with platelet count up to 900s. This is likely reactive. Hematology oncology recommendations appreciated -- Severe protein calorie malnutrition cachexia January 25, 2020 I spoke to surgery myself plan is not to have the patient be on TPN forever. Plan will be to readdress the ostomy site. Allow TPN to let the bowel heal. Because patient had ischemic bowel. There was also plans to transfer patient to outpatient TPN clinic at [place]. Plan for anastomotic correction Tuesday - Patient Problems (1) DVT prophylaxis Current Visit: Yes Status: Deleted Plan to address problem: Anticoagulation being held secondary to surgery and risk of bleeding. (2) Dehydration Current Visit: Yes Status: Resolved Plan to address problem: Continue TPN for now monitor electrolytes daily. (3) Small bowel obstruction Current Visit: Yes Status: Deleted Plan to address problem: Status post surgical intervention. Patient to have revision of ostomy site done on Tuesday. Attempts to let the bowel and area heal. Plan would be attempt to obtain Medicaid versus disability as a source. And potential transfer to TPN clinic at [place]. (4) Metabolic acidosis Current Visit: Yes Status: Acute Plan to address problem: Has improved from 4.6-3. Post surgery. Subjective Date of service: 01/26/20 Principal diagnosis: Abdominal pain small bowel obstruction Interval history: Patient up walking around in the loja today. Has regained strength. Long discussion with surgery and myself and patient. Patient is scheduled to have possible revision on Tuesday. Ostomy site has been problematic secondary to some atrophy at the site. Patient was in the room during conversation he understands surgery and tentative plan. Objective - Constitutional Vitals: Vital Signs - 12hr 01/26/20 01/26/20 01/26/20 07:56 08:00 13:00 Temperature 98.5 F 98.5 F 98.3 F Pulse Rate 84 82 Respiratory 20 20 20 Rate Blood Pressure 124/74 Blood Pressure 124/74 98/66 [Left] O2 Sat by Pulse 98 98 Oximetry 01/26/20 15:00 Temperature 98 F Pulse Rate 105 H Respiratory 16 Rate Blood Pressure Blood Pressure 121/81 [Left] O2 Sat by Pulse 99 Oximetry General appearance: Present: no acute distress, cachectic - EENT Eyes: PERRL, EOM intact ENT: hearing intact, clear oral mucosa Ears: bilateral: normal - Neck Neck: supple, normal ROM - Respiratory Respiratory effort: normal Respiratory: bilateral: CTA - Breasts Breasts: normal - Cardiovascular Rhythm: regular Heart Sounds: Present: S1 & S2. Absent: gallop, rub Extremities: pulses intact, No edema, normal color, Full ROM - Gastrointestinal General gastrointestinal: Present: soft, non-tender, non-distended, other (pt has excoriation from bile on side of osteomy) - Genitourinary Male genitourinary: normal - Integumentary Integumentary: clear, warm, dry - Musculoskeletal Musculoskeletal: strength equal bilaterally, generalized weakness - Neurologic Neurologic: moves all extremities - Psychiatric Psychiatric: memory intact, appropriate mood/affect, intact judgment & insight - Labs CBC & Chem 7: 01/25/20 07:54 01/26/20 08:50 Labs: Abnormal lab results 01/25/20 01/26/20 Range/Units 23:02 08:50 Sodium 134 L (137-145) mmol/L Chloride 95.1 L (98-107) mmol/L BUN 24 H (9-20) mg/dL Creatinine 0.6 L (0.8-1.3) mg/dL POC Glucose 135 H (70-105) mg/dL
[2020-01-26] MEDS ORDERED: TOTAL PARENTERAL NUTRITION 3,000 ML IV SCH (20:00)
[2020-01-26] MEDS: ENOXAPARIN 40 MG/0.4 ML INJ SUB-Q SCH (22:22)
[2020-01-27] MEDS: HYDROcodone/APAP 7.5-325MG-15ML ORAL LIQD PO PRN ×4 (03:19→23:42)
--- NOTE | 2020-01-27 07:50 | Event Note ---
Date: 01/27/20 POD VSS AFebrile, no antibiotics, po pain meds only/eilixer, I had a long conversation with patient yesterday with Dr. Martinez and nurse present. The patient keeps having problems with leaking from the left sided jejunostomy site, there has been some ischemic slough on the ostomy, and it has retracted a bit. Also, the patient takes off the ostomy appliance too frequently and lets the bile acids irritate his skin, I have explained the danger of this repeatedly to the patient. I will attempt to meet the ostomy nurse in the room to see what can be done to improve the ability to get a continent appliance/ ostomy. I may have to revise the ostomy site which is very problematic given the timing and presence of imflammation from multiple previous surgeries. I tentatively plan this for Tue of this week. I will see what I can do to make a continent ostomy at the risk of loosing more small bowel which the patient can not really afford to lose. A very difficult problem. I have spoken with [place]/ Dr Garvey's nurse, and eventually hope to get patient to short gut clinic at [place] as outpatient. He will require home TPN since he can not take in adequate po to meet his caloric needs. 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 In the future, ( like in [address] Garvey's nurse) The patient can be evaluated for bowel lengthening procedures(like STEP procedure,etc), but given his history of radiation to his bowel this may not be possible.I do not have the experience in this area to make this call, and I will defer to experts in this area.Overall, I am at a point that there is little more I can do from a surgical standpoint to correct this patient' very complex and difficult problem.Please DO NOT use his port to draw labs unless absolutely necessary because of risk on infecting the port. (another problem this patient does not need)
[2020-01-27 08:39] LABS: BUN/Creatinine Ratio 42; Blood Urea Nitrogen 25 mg/dL (9-20); Calcium 8.9 mg/dL (8.4-10.2); Hemolysis Index 5
[2020-01-27] MEDS: NICOTINE 21 MG/24 HR PATCH TD SCH (09:56)
[2020-01-27] MEDS: PANTOPRAZOLE 40 MG INJ IV SCH (09:56)
--- NOTE | 2020-01-27 15:13 | Progress Note ---
Assessment and Plan -- Nausea/vomiting likely from narcotics induced, limit use of narcotic, reglan as needed Ct abd/pelvis showed no obstruction, distended stomach General surgery recommended to stop all narcotics, strict n.p.o. except ice chips -- Small bowel obstruction Status post exploratory lap x3. per surgery note: Some ischemic bowel, S/P Hemicolectomy, Fistula washed out. CT abdomen and pelvis shows intraperitoneal fluid collection. Now s/p CT-guided paracentesis. Culture negative Monitor vital signs and labs. ID on board. Patient treated with ceftriaxone, Flagyl and fluconazole for possible intra-abdominal infection. Cultures negative so far. -- Dehydration: Resolved Patient well-hydrated Continue IV hydration --Acute Metabolic Encephalopathy with subsequent acute respiratory failure Resolved -- Metabolic acidosis Resolved -- ANEMIA of CD Continue to monitor hemoglobin Iron supplements -- Thrombocythemia Initially had thrombocytopenia and there was a concern for HIT blood test was negative Now has been thrombocythemia with platelet count up to 900s. This is likely reactive. Hematology oncology recommendations appreciated -- Severe protein calorie malnutrition cachexia January 25, 2020 I spoke to surgery myself plan is not to have the patient be on TPN forever. Plan will be to readdress the ostomy site. Allow TPN to let the bowel heal. Because patient had ischemic bowel. There was also plans to transfer patient to outpatient TPN clinic at [place]. Plan for anastomotic correction Sunday January 26, 2020 patient up walking around with physical therapy. Pain is better. Having problems at the ostomy site. States difficult to keep from draining and pulls off ostomy to Plan keshia to have revision done on possibly Tuesday. January 27, 2020. Patient in good spirits no bowel movement discussed plan with myself and Dr. Vick. Plan for revision of ostomy site potentially on Tuesday. - Patient Problems (1) DVT prophylaxis Current Visit: Yes Status: Deleted Plan to address problem: Anticoagulation being held secondary to surgery and risk of bleeding. (2) Dehydration Current Visit: Yes Status: Resolved Plan to address problem: Stable patient has IV fluids up walking around. No further evidence of dehydration at this point. (3) Small bowel obstruction Current Visit: Yes Status: Deleted Plan to address problem: Status post surgical intervention. Patient to have revision of ostomy site done on Tuesday. Attempts to let the bowel and area heal. Plan would be attempt to obtain Medicaid versus disability as a source. And potential transfer to TPN clinic at [place]. (4) Metabolic acidosis Current Visit: Yes Status: Acute Plan to address problem: Has improved from 4.6-3. Post surgery. Subjective Date of service: 01/27/20 Principal diagnosis: Abdominal pain small bowel obstruction Interval history: Patient up walking around in the loja again today. Makes wishes known. Again discussed treatment plan with patient and he understands risk and benefits of additional surgeries.. Possible revision on Tuesday. On Tuesday. Discussed with surgery in detail about upcoming plan.. Patient was in the room during conversation he understands surgery and tentative plan. Objective - Constitutional Vitals: Vital Signs - 12hr 01/27/20 01/27/20 01/27/20 05:37 07:22 12:15 Temperature 98.8 F 98.8 F 98.8 F Pulse Rate 105 H 105 H 91 H Respiratory 18 22 20 Rate Blood Pressure 105/72 107/81 104/70 O2 Sat by Pulse 97 97 99 Oximetry General appearance: Present: no acute distress, cachectic, other - EENT Eyes: PERRL, EOM intact ENT: hearing intact, clear oral mucosa, other Ears: bilateral: normal - Neck Neck: supple, normal ROM - Respiratory Respiratory effort: normal Respiratory: bilateral: CTA - Breasts Breasts: normal - Cardiovascular Rhythm: regular Heart Sounds: Present: S1 & S2. Absent: gallop, rub Extremities: pulses intact, No edema, normal color, Full ROM - Gastrointestinal General gastrointestinal: Present: soft, non-tender, non-distended, hypoactive bowel sounds, other (Scaphoid abdomen Evidence of irritation from bile drainage) - Genitourinary Male genitourinary: normal - Integumentary Integumentary: clear, warm, dry - Musculoskeletal Musculoskeletal: 1, strength equal bilaterally - Neurologic Neurologic: moves all extremities - Psychiatric Psychiatric: memory intact, appropriate mood/affect, intact judgment & insight - Labs CBC & Chem 7: 01/25/20 07:54 01/27/20 07:53 Labs: Abnormal lab results 01/26/20 01/27/20 01/27/20 Range/Units 23:26 05:53 07:53 Sodium 136 L (137-145) mmol/L BUN 25 H (9-20) mg/dL Creatinine 0.6 L (0.8-1.3) mg/dL Glucose 73 L (75-100) mg/dL POC Glucose 177 H 161 H (70-105) mg/dL
[2020-01-27] MEDS ORDERED: TOTAL PARENTERAL NUTRITION 3,000 ML IV SCH (20:00)
[2020-01-27] MEDS: ENOXAPARIN 40 MG/0.4 ML INJ SUB-Q SCH (23:42)
[2020-01-28] MEDS: HYDROcodone/APAP 7.5-325MG-15ML ORAL LIQD PO PRN ×3 (05:36→18:39)
--- NOTE | 2020-01-28 07:48 | Progress Note ---
Assessment and Plan -- Nausea/vomiting likely from narcotics induced, limit use of narcotic, reglan as needed Ct abd/pelvis showed no obstruction, distended stomach General surgery recommended to stop all narcotics, strict n.p.o. except ice chips -- Small bowel obstruction Status post exploratory lap x3. per surgery note: Some ischemic bowel, S/P Hemicolectomy, Fistula washed out. CT abdomen and pelvis shows intraperitoneal fluid collection. Now s/p CT-guided paracentesis. Culture negative Monitor vital signs and labs. ID on board. Patient treated with ceftriaxone, Flagyl and fluconazole for possible intra-abdominal infection. Cultures negative so far. -- Dehydration: Resolved Patient well-hydrated Continue IV hydration --Acute Metabolic Encephalopathy with subsequent acute respiratory failure Resolved -- Metabolic acidosis Resolved -- ANEMIA of CD Continue to monitor hemoglobin Iron supplements -- Thrombocythemia Initially had thrombocytopenia and there was a concern for HIT blood test was negative Now has been thrombocythemia with platelet count up to 900s. This is likely reactive. Hematology oncology recommendations appreciated -- Severe protein calorie malnutrition cachexia January 25, 2020 I spoke to surgery myself plan is not to have the patient be on TPN forever. Plan will be to readdress the ostomy site. Allow TPN to let the bowel heal. Because patient had ischemic bowel. There was also plans to transfer patient to outpatient TPN clinic at [place]. Plan for anastomotic correction Sunday January 26, 2020 patient up walking around with physical therapy. Pain is better. Having problems at the ostomy site. States difficult to keep from draining and pulls off ostomy to Plan keshia to have revision done on possibly Tuesday. January 27, 2020. Patient in good spirits no bowel movement discussed plan with myself and Dr. Vick. Plan for revision of ostomy site potentially on Tuesday. January 28, 2020 no new changes in the p.m. chemical burn from bile at ostomy site. Requiring increased pain medications. No longer dehydrated no longer encephalopathic. - Patient Problems (1) DVT prophylaxis Current Visit: Yes Status: Deleted Plan to address problem: Anticoagulation being held secondary to surgery and risk of bleeding. (2) Dehydration Current Visit: Yes Status: Resolved Plan to address problem: Resolved. Patient at risk for dehydration secondary to short bowel syndrome. (3) Small bowel obstruction Current Visit: Yes Status: Deleted Plan to address problem: Status post surgery. 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 Patient is status post surgical intervention. Patient tolerated procedure well. Patient's abdominal pain has essentially resolved. Now 1 the complications is short bowel syndrome. Patient only had 4 feet of some mild bile left. This is not enough for immediate adequate absorption. Patient currently on TPN. Scheduled to have a reanastomosis of ostomy site on Tuesday or . Plan for patient to have TPN for approximately 4 to 6 months until bowel is able to heal. At that time patient will require another's procedure w hich is highly complicated and attempts to extend the amount of patient is bile and create better reabsorption. Even when this is complete I do not see patient improved enough to return to a viable occupation. Patient will endure chronic malnutrition with limited endurance and fatigue and potential electrolyte abnormalities that were now lateral patient in my opinion to ever gain adequate employment. Patient will be limited by his nutritional status as well as pain requirements. It is my opinion the patient would not be to adequately perform any job functions. Patient has difficulty now with ADLs and requires assistance with most ADLs. (4) Metabolic acidosis Current Visit: Yes Status: Acute Plan to address problem: Has improved from 4.6-3. Post surgery. Subjective Date of service: 01/28/20 Principal diagnosis: Abdominal pain small bowel obstruction Interval history: Patient up walking around in the loja again today. Makes wishes known. Again discussed treatment plan with patient and he understands risk and benefits of additional surgeries.. Possible revision on Tuesday. On Tuesday. Discussed with surgery in detail about upcoming plan.. Patient was in the room during conversation he understands surgery and tentative plan. Patient's hospital course complicated by skin irritation caused by bile from ostomy site. Quiring additional pain medication. Objective - Constitutional Vitals: Vital Signs - 12hr 01/27/20 01/28/20 01/28/20 23:27 06:28 07:35 Temperature 98.6 F 98.5 F 98.9 F Pulse Rate 109 H 94 H 115 H Respiratory 18 18 20 Rate Blood Pressure 108/77 112/79 133/75 O2 Sat by Pulse 98 99 97 Oximetry General appearance: Present: no acute distress, cachectic - EENT Eyes: PERRL, EOM intact ENT: hearing intact, clear oral mucosa, dentition normal - Respiratory Respiratory effort: normal Respiratory: bilateral: CTA Extremities: pulses intact, No edema, normal color, Full ROM - Gastrointestinal General gastrointestinal: Present: soft, tender, hypoactive bowel sounds, other (Colostomy site excoriations to the left. Right intact. Hypoactive bowel sounds. Tender to deep palpation.) - Integumentary Integumentary: erythema - Musculoskeletal Musculoskeletal: generalized weakness - Neurologic Neurologic: CNII-XII intact, focal deficits, moves all extremities - Psychiatric Psychiatric: appropriate mood/affect, intact judgment & insight, memory intact, cooperative - Labs CBC & Chem 7: 01/25/20 07:54 01/28/20 07:15 Labs: Abnormal lab results 01/27/20 01/27/20 01/28/20 Range/Units 07:53 23:45 07:17 Sodium 136 L (137-145) mmol/L BUN 25 H (9-20) mg/dL Creatinine 0.6 L (0.8-1.3) mg/dL Glucose 73 L (75-100) mg/dL POC Glucose 153 H 142 H (70-105) mg/dL
[2020-01-28 08:13] LABS: BUN/Creatinine Ratio 46; Blood Urea Nitrogen 23 mg/dL (9-20); Calcium 8.8 mg/dL (8.4-10.2); Hemolysis Index 2
[2020-01-28] MEDS ORDERED: HYDROmorphone 1 MG/1 ML INJ IV NR (11:24)
[2020-01-28] MEDS: PANTOPRAZOLE 40 MG INJ IV SCH (12:01)
[2020-01-28] MEDS: NICOTINE 21 MG/24 HR PATCH TD SCH (12:03)
[2020-01-28] MEDS ORDERED: TOTAL PARENTERAL NUTRITION 3,000 ML IV SCH (20:00)
[2020-01-28] MEDS ORDERED: FAT EMULSIONS 20% 250 ML IV SCH (20:00)
--- NOTE | 2020-01-28 20:29 | Event Note ---
Date: 01/28/20 Due to scheduling in OR, unable to attempt revision of ostomy until , continue present therapy.
[2020-01-28] MEDS: ENOXAPARIN 40 MG/0.4 ML INJ SUB-Q SCH (22:11)
[2020-01-28] MEDS ORDERED: HYDROcodone/APAP 7.5-325MG-15ML ORAL LIQD ONE (23:47)
[2020-01-29] MEDS ORDERED: HYDROcodone/APAP 7.5-325MG-15ML ORAL LIQD ONE (08:25)
[2020-01-29] MEDS ORDERED: HYDROmorphone 1 MG/1 ML INJ ONE ×2 (08:25→10:34)
[2020-01-29] MEDS ORDERED: NICOTINE 21 MG/24 HR PATCH TD ONE (08:25)
[2020-01-29] MEDS ORDERED: PANTOPRAZOLE 40 MG INJ IV ONE (08:25)
[2020-01-29] MEDS: PANTOPRAZOLE 40 MG INJ IV SCH (09:15)
[2020-01-29] MEDS: NICOTINE 21 MG/24 HR PATCH TD SCH (09:15)
[2020-01-29] MEDS: HYDROcodone/APAP 7.5-325MG-15ML ORAL LIQD PO PRN ×2 (14:37→21:41)
[2020-01-29] MEDS ORDERED: HYDROmorphone 1 MG/1 ML INJ IV ONE ×2 (18:00)
[2020-01-29] MEDS ORDERED: TOTAL PARENTERAL NUTRITION 3,000 ML IV SCH (20:00)
[2020-01-29] MEDS: ENOXAPARIN 40 MG/0.4 ML INJ SUB-Q SCH (21:41)
--- NOTE | 2020-01-29 23:00 | Progress Note ---
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 Patient states for the past 2 days he has had some abdominal distention in the right lower quadrant and crampy 10 out of 10 pain. He has had multiple episodes of nausea and vomiting. Denies fever chills cough cold or congestion. On December 30, [address] showed patient to have free air in colon. Surgical intervention was required. Patient had surgery had partial hemicolectomy during exploratory laparotomy was subsequently intubated and transferred to the intensive care unit. On December 31, 2019 patient returned to the OR for an additional surgery. After initial extubation. Patient was not follow commands agitated unable to really protect airways and therefore was reintubated. -- Nausea/vomiting likely from narcotics induced, limit use of narcotic, reglan as needed Ct abd/pelvis showed no obstruction, distended stomach General surgery recommended to stop all narcotics, strict n.p.o. except ice chips -- Small bowel obstruction Status post exploratory lap x3. per surgery note: Some ischemic bowel, S/P Hemicolectomy, Fistula washed out. CT abdomen and pelvis shows intraperitoneal fluid collection. Now s/p CT-guided paracentesis. Culture negative Monitor vital signs and labs. ID on board. Patient treated with ceftriaxone, Flagyl and fluconazole for p ossible intra-abdominal infection. Cultures negative so far. -- Dehydration: Resolved Patient well-hydrated Continue IV hydration --Acute Metabolic Encephalopathy with subsequent acute respiratory failure Resolved -- Metabolic acidosis Resolved -- ANEMIA of CD Continue to monitor hemoglobin Iron supplements -- Thrombocythemia Initially had thrombocytopenia and there was a concern for HIT blood test was negative Now has been thrombocythemia with platelet count up to 900s. This is likely reactive. Hematology oncology recommendations appreciated -- Severe protein calorie malnutrition cachexia January 25, 2020 I spoke to surgery myself plan is not to have the patient be on TPN forever. Plan will be to readdress the ostomy site. Allow TPN to let the bowel heal. Because patient had ischemic bowel. There was also plans to transfer patient to outpatient TPN clinic at [place]. Plan for anastomotic correction Sunday January 26, 2020 patient up walking around with physical therapy. Pain is better. Having problems at the ostomy site. States difficult to keep from draining and pulls off ostomy to Plan keshia to have revision done on possibly Tuesday. January 27, 2020. Patient in good spirits no bowel movement discussed plan with myself and Dr. Vick. Plan for revision of ostomy site potentially on Tuesday. January 28, 2020 no new changes in the p.m. chemical burn from bile at ostomy site. Requiring increased pain medications. No longer dehydrated no longer encephalopathic. 01/28: Awaiting change in ostomy site due to leaking. Continue supportive care and pain control. Discussed risk with pain meds extensively - Patient Problems (1) DVT prophylaxis Current Visit: Yes Status: Deleted Plan to address problem: Anticoagulation being held secondary to surgery and risk of bleeding. (2) Dehydration Current Visit: Yes Status: Resolved Plan to address problem: Resolved. Patient at risk for dehydration secondary to short bowel syndrome. (3) Small bowel obstruction Current Visit: Yes Status: Deleted Plan to address problem: Status post surgery. 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 Patient is status post surgical intervention. Patient tolerated procedure well. Patient's abdominal pain has essentially resolved. Now 1 the complications is short bowel syndrome. Patient only had 4 feet of some mild bile left. This is not enough for immediate adequate absorption. Patient currently on TPN. Scheduled to have a reanastomosis of ostomy site on Tuesday or . Plan for patient to have TPN for approximately 4 to 6 months until bowel is able to heal. At that time patient will require another's procedure which is highly complicated and attempts to extend the amount of patient is bile and create better reabsorption. Even when this is complete I do not see patient improved enough to return to a viable occupation. Patient will endure chronic malnutrition with limited endurance and fatigue and potential electrolyte abnormalities that were now lateral patient in my opinion to ever gain adequate employment. Patient will be limited by his nutritional status as well as pain requirements. It is my opinion the patient would not be to adequately perform any job functions. Patient has difficulty now with ADLs and requires assistance with most ADLs. (4) Metabolic acidosis Current Visit: Yes Status: Acute Plan to address problem: Has improved from 4.6-3. Post surgery. History Interval history: Patient seen and examined, still with abdominal dyscomfort, wants to eat. Hospitalist Physical - Physical exam Narrative exam: General appearance: Present: no acute distress, cachectic, - EENT Eyes: PERRL, EOM intact ENT: hearing intact, clear oral mucosa, dentition normal - Respiratory Respiratory effort: normal Respiratory: bilateral: CTA Extremities: pulses intact, No edema, normal color, Full ROM - Gastrointestinal General gastrointestinal: Present: soft, tender, hypoactive bowel sounds, other (Colostomy site excoriations to the left. Right intact. Hypoactive bowel sounds. Tender to deep palpation.) - Integumentary Integumentary: erythema - Musculoskeletal Musculoskeletal: generalized weakness - Neurologic Neurologic: CNII-XII intact, focal deficits, moves all extremities - Psychiatric Psychiatric: appropriate mood/affect, intact judgment & insight, memory intact, cooperative - Constitutional Vitals: Temp Pulse Resp BP Pulse Ox 98.6 F 91 H 18 104/71 99 01/29/20 19:26 01/29/20 19:26 01/29/20 19:26 01/29/20 19:26 01/29/20 19:26 General appearance: Present: no acute distress, cachectic Results - Labs CBC & Chem 7: 01/25/20 07:54 01/30/20 11:00 Labs: Laboratory Last Values WBC 8.9 K/mm3 (4.5-11.0) 01/25/20 07:54 RBC 3.17 M/mm3 (3.65-5.03) L 01/25/20 07:54 Hgb 9.4 gm/dl (11.8-15.2) L 01/25/20 07:54 Hgb Comment See scanned result 01/12/20 06:15 Hct 26.4 % (35.5-45.6) L 01/25/20 07:54 MCV 83 fl (84-94) L 01/25/20 07:54 MCH 30 pg (28-32) 01/25/20 07:54 MCHC 36 % (32-34) H 01/25/20 07:54 RDW 15.4 % (13.2-15.2) H 01/25/20 07:54 Plt Count 556 K/mm3 (140-440) H 01/25/20 07:54 Lymph % (Auto) 13.2 % (13.4-35.0) L 01/25/20 07:54 [place] % (Auto) 9.1 % (0.0-7.3) H 01/25/20 07:54 Eos % (Auto) 1.3 % (0.0-4.3) 01/25/20 07:54 Baso % (Auto) 0.2 % (0.0-1.8) 01/25/20 07:54 Lymph # (Auto) 1.2 K/mm3 (1.2-5.4) 01/25/20 07:54 Sutter # (Auto) 0.8 K/mm3 (0.0-0.8) 01/25/20 07:54 Eos # (Auto) 0.1 K/mm3 (0.0-0.4) 01/25/20 07:54 Baso # (Auto) 0.0 K/mm3 (0.0-0.1) 01/25/20 07:54 Add Manual Diff Complete 01/05/20 09:17 Total Counted 100 01/05/20 09:17 Seg Neutrophils % 76.2 % (40.0-70.0) H 01/25/20 07:54 Seg Neuts % (Manual) 97.0 % (40.0-70.0) H 01/05/20 09:17 Band Neutrophils % 0 % 01/05/20 09:17 Lymphocytes % (Manual) 0 % (13.4-35.0) L 01/05/20 09:17 Reactive Lymphs % (Man) 0 % 01/05/20 09:17 Monocytes % (Manual) 2.0 % (0.0-7.3) 01/05/20 09:17 Eosinophils % (Manual) 1.0 % (0.0-4.3) 01/05/20 09:17 Basophils % (Manual) 0 % (0.0-1.8) 01/05/20 09:17 Metamyelocytes % 0 % 01/05/20 09:17 Myelocytes % 0 % 01/05/20 09:17 Promyelocytes % 0 % 01/05/20 09:17 Blast Cells % 0 % 01/05/20 09:17 Nucleated RBC % Not Reportable 01/05/20 09:17 Seg Neutrophils # 6.8 K/mm3 (1.8-7.7) 01/25/20 07:54 Seg Neutrophils # Man 11.7 K/mm3 (1.8-7.7) H 01/05/20 09:17 Band Neutrophils # 0.0 K/mm3 01/05/20 09:17 Lymphocytes # (Manual) 0.0 K/mm3 (1.2-5.4) L 01/05/20 09:17 Abs React Lymphs (Man) 0.0 K/mm3 01/05/20 09:17 Monocytes # (Manual) 0.2 K/mm3 (0.0-0.8) 01/05/20 09:17 Eosinophils # (Manual) 0.1 K/mm3 (0.0-0.4) 01/05/20 09:17 Basophils # (Manual) 0.0 K/mm3 (0.0-0.1) 01/05/20 09:17 Metamyelocytes # 0.0 K/mm3 01/05/20 09:17 Myelocytes # 0.0 K/mm3 01/05/20 09:17 Promyelocytes # 0.0 K/mm3 01/05/20 09:17 Blast Cells # 0.0 K/mm3 01/05/20 09:17 WBC Morphology Not Reportable 01/05/20 09:17 Hypersegmented Neuts Not Reportable 01/05/20 09:17 Hyposegmented Neuts Not Reportable 01/05/20 09:17 Hypogranular Neuts Not Reportable 01/05/20 09:17 Smudge Cells Not Reportable 01/05/20 09:17 Toxic Granulation Not Reportable 01/05/20 09:17 Toxic Vacuolation Not Reportable 01/05/20 09:17 Dohle Bodies Not Reportable 01/05/20 09:17 Pelger-Huet Anomaly Not Reportable 01/05/20 09:17 Anuradha Rods Not Reportable 01/05/20 09:17 Platelet Estimate Consistent w auto 01/05/20 09:17 Clumped Platelets Not Reportable 01/05/20 09:17 Plt Clumps, EDTA Not Reportable 01/05/20 09:17 Large Platelets Not Reportable 01/05/20 09:17 Giant Platelets Not Reportable 01/05/20 09:17 Platelet Satelliting Not Reportable 01/05/20 09:17 Plt Morphology Comment Not Reportable 01/05/20 09:17 RBC Morphology Not Reportable 01/05/20 09:17 Dimorphic RBCs Not Reportable 01/05/20 09:17 Polychromasia Not Reportable 01/05/20 09:17 Hypochromasia Not Reportable 01/05/20 09:17 Poikilocytosis Not Reportable 01/05/20 09:17 Anisocytosis Few 01/05/20 09:17 Microcytosis Not Reportable 01/05/20 09:17 Macrocytosis Not Reportable 01/05/20 09:17 Spherocytes Not Reportable 01/05/20 09:17 Pappenheimer Bodies Not Reportable 01/05/20 09:17 Sickle Cells Not Reportable 01/05/20 09:17 Target Cells 1+ 01/05/20 09:17 Tear Drop Cells Not Reportable 01/05/20 09:17 Ovalocytes Not Reportable 01/05/20 09:17 Helmet Cells Not Reportable 01/05/20 09:17 [place] Bodies Not Reportable 01/05/20 09:17 [place] Rings Not Reportable 01/05/20 09:17 [place] Cells Not Reportable 01/05/20 09:17 Bite Cells Not Reportable 01/05/20 09:17 Crenated Cell Not Reportable 01/05/20 09:17 Elliptocytes Not Reportable 01/05/20 09:17 Acanthocytes (Spur) Not Reportable 01/05/20 09:17 Rouleaux Not Reportable 01/05/20 09:17 Hemoglobin C Crystals Not Reportable 01/05/20 09:17 Schistocytes Not Reportable 01/05/20 09:17 Malaria parasites Not Reportable 01/05/20 09:17 Sickle Cell Solubility See scanned result 01/12/20 06:15 Hemoglobin A See scanned result 01/12/20 06:15 Hemoglobin A2 See scanned result 01/12/20 06:15 Hemoglobin A2 Prime See scanned result 01/12/20 06:15 Hemoglobin C See scanned result 01/12/20 06:15 Hemoglobin D See scanned result 01/12/20 06:15 Hemoglobin E See scanned result 01/12/20 06:15 Hgb F Diffential Stain See scanned result 01/12/20 06:15 Hemoglobin F Quant See scanned result 01/12/20 06:15 Hemoglobin G See scanned result 01/12/20 06:15 Hemoglobin S See scanned result 01/12/20 06:15 Hemoglobin [place] See scanned result 01/12/20 06:15 Hemoglobin [place] See scanned result 01/12/20 06:15 Hemoglobin Prema See scanned result 01/12/20 06:15 Variant Hemoglobin See scanned result 01/12/20 06:15 Abnorm Hgb IEF Confirm See scanned result 01/12/20 06:15 Hemoglobin Interpret See scanned result 01/12/20 06:15 Hemoglobinopathy Note See scanned result 01/12/20 06:15 Christ Bodies Not Reportable 01/05/20 09:17 Hem Pathologist Commnt No 01/05/20 09:17 PT 14.8 Sec. (12.2-14.9) 01/08/20 19:18 INR 1.14 (0.87-1.13) H 01/08/20 19:18 APTT 42.2 Sec. (24.2-36.6) H 12/30/19 22:30 Heparin Anti-Xa, Unfract Negative (Negative) 01/03/20 11:08 ABG pH 7.456 pH Units (7.350-7.450) H 01/01/20 05:15 POC ABG pCO2 34.7 mmHg (32.0-48.0) 12/31/19 04:03 ABG pCO2 34.1 mm Hg 01/01/20 05:15 POC ABG pO2 95.1 mmHg (83-108) 12/31/19 04:03 ABG pO2 85.3 mm Hg (80.0-90.0) 01/01/20 05:15 POC ABG HCO3 20.2 12/31/19 04:03 ABG HCO3 23.5 mmol/L (20.0-26.0) 01/01/20 05:15 ABG O2 Saturation 97.1 % (95.0-99.0) 01/01/20 05:15 ABG O2 Content 9.4 (0.0-44) 01/01/20 05:15 POC ABG Base Excess -4.2 12/31/19 04:03 ABG Base Excess -0.3 mmol/L (-2.0-3.0) 01/01/20 05:15 ABG Hemoglobin 6.9 gm/dl (14.0-18.0) L 01/01/20 05:15 ABG Carboxyhemoglobin 1.4 % (0.0-5.0) 01/01/20 05:15 ABG Methemoglobin 0.7 % (0.0-1.5) 01/01/20 05:15 Oxyhemoglobin 95.0 % (95.0-99.0) 01/01/20 05:15 FiO2 35 % 01/01/20 05:15 Sodium 135 mmol/L (137-145) L 01/28/20 07:15 Potassium 3.8 mmol/L (3.6-5.0) D 01/28/20 07:15 Chloride 98.5 mmol/L (98-107) 01/28/20 07:15 Carbon Dioxide 26 mmol/L (22-30) 01/28/20 07:15 Anion Gap 14 mmol/L 01/28/20 07:15 BUN 23 mg/dL (9-20) H 01/28/20 07:15 Creatinine 0.5 mg/dL (0.8-1.3) L 01/28/20 07:15 Estimated GFR > 60 ml/min 01/28/20 07:15 BUN/Creatinine Ratio 46 % 01/28/20 07:15 Glucose 150 mg/dL (75-100) H 01/28/20 07:15 POC Glucose 160 mg/dL (70-105) H 01/29/20 06:22 Lactic Acid 1.00 mmol/L (0.7-2.0) 01/05/20 06:35 Calcium 8.8 mg/dL (8.4-10.2) 01/28/20 07:15 Phosphorus 4.50 mg/dL (2.5-4.5) D 01/28/20 07:15 Magnesium 2.10 mg/dL (1.7-2.3) 01/28/20 07:15 Iron 21 ug/dL (49-181) L 01/13/20 05:00 TIBC 179 mcg/dL (250-450) L 01/13/20 05:00 Total Bilirubin 0.60 mg/dL (0.1-1.2) 01/23/20 06:43 Direct Bilirubin 1.3 mg/dL (0-0.2) H 01/08/20 08:30 Indirect Bilirubin 1.0 mg/dL 01/08/20 08:30 AST 30 units/L (5-40) 01/23/20 06:43 ALT 58 units/L (7-56) H 01/23/20 06:43 Alkaline Phosphatase 152 units/L (35-129) H 01/23/20 06:43 Total Protein 6.5 g/dL (6.3-8.2) 01/23/20 06:43 Albumin 2.6 g/dL (3.9-5) L 01/23/20 06:43 Albumin/Globulin Ratio 0.7 % 01/23/20 06:43 Triglycerides 72 mg/dL (2-149) 01/25/20 07:54 Lipase 9 units/L (13-60) L 12/29/19 14:29 Serotonin Release Assay See scanned result 01/03/20 11:08 Urine Color Yellow (Yellow) 12/27/19 Unknown Urine Turbidity Clear (Clear) 12/27/19 Unknown Urine pH 5.0 (5.0-7.0) 12/27/19 Unknown Ur Specific [place] > 1.059 (1.003-1.030) H 12/27/19 Unknown Urine Protein 30 mg/dl mg/dL (Negative) 12/27/19 Unknown Urine Glucose (UA) Neg mg/dL (Negative) 12/27/19 Unknown Urine Ketones 20 mg/dL (Negative) 12/27/19 Unknown Urine Blood Mod (Negative) 12/27/19 Unknown Urine Nitrite Neg (Negative) 12/27/19 Unknown Urine Bilirubin Neg (Negative) 12/27/19 Unknown Urine Urobilinogen < 2.0 mg/dL (<2.0) 12/27/19 Unknown Ur Leukocyte Esterase Neg (Negative) 12/27/19 Unknown Urine WBC (Auto) 2.0 /HPF (0.0-6.0) 12/27/19 Unknown Urine RBC (Auto) 28.0 /HPF (0.0-6.0) 12/27/19 Unknown U Epithel Cells (Auto) < 1.0 /HPF (0-13.0) 12/27/19 Unknown Urine Mucus 3+ /HPF 12/27/19 Unknown Fluid Type Paracentesis 01/09/20 Unknown Fluid Color Fauzia 01/09/20 Unknown Fluid Appearance Turbid 01/09/20 Unknown Fluid WBC 3225 /mm3 01/09/20 Unknown Fluid RBC 325 /mm3 01/09/20 Unknown Fluid Seg Neutrophils 87.0 % 01/09/20 Unknown Fluid Lymphocytes 10.0 % 01/09/20 Unknown Fluid Reactive Lymphs 0 % 01/09/20 Unknown Fluid Monocytes 3.0 % 01/09/20 Unknown Fluid Eosinophils 0 % 01/09/20 Unknown Fluid Basophils 0 % 01/09/20 Unknown Heparin-induced Plt Ab Negative (Negative) 01/03/20 11:08 UF Heparin High Dose 4 % Release 01/03/20 11:08 SU UFH Low Dose 0.1 9 % Release 01/03/20 11:08 SU UFH Low Dose 0.5 4 % Release 01/03/20 11:08 Blood Type B POSITIVE 01/12/20 06:15 Antibody Screen Negative 01/12/20 06:15 Crossmatch See Detail 12/29/19 19:52 Azul/IV: Voiding Method Urinal IV Catheter Type [Left Forearm INT / Saline Lock ] IV Catheter Type [Right Chest] IVAD / Port IV Catheter Type [Left Hand] INT / Saline Lock IV Catheter Type [Left Wrist] Peripheral IV IV Catheter Type [Right Peripheral IV Forearm] IV Catheter Type [Right Upper PICC Line arm] IV Catheter Type [Right INT / Saline Lock Antecubital] Active Medications - Current Medications Current Medications: Generic Name Dose Route Start Last Admin Trade Name Freq PRN Reason Stop Dose Admin Hydrocodone Bitart/Acetaminophen 7.5 mg 01/20/20 10:00 01/29/20 21:41 Hydrocodone/Apap 7.5-325 PO 7.5 mg Q6HR PRN Administration Pain, Moderate (4-6) Enoxaparin Sodium 40 mg 01/09/20 22:00 01/29/20 21:41 Enoxaparin SUB-Q 40 mg QDAY@2200 [facility] Administration Protocol Fat Emulsion Intravenous 250 mls @ 21 mls/hr 01/28/20 20:00 01/28/20 20:10 Intralipid 20% IV 01/29/20 07:59 21 mls/hr DAILY@[email or web address] [facility] Administration Amino Acids/Electrolytes/Dextrose 3,000 mls @ 0 mls/hr 01/28/20 20:00 01/28/20 20:08 Tpn Adult IV 01/29/20 08:00 275 mls/hr DAILY@[email or web address] [facility] Administration Protocol As Directed Amino Acids/Electrolytes/Dextrose 3,000 mls @ 0 mls/hr 01/29/20 20:00 01/29/20 21:44 Tpn Adult IV 01/30/20 08:00 125 mls/hr DAILY@1999 SUSAN Administration Protocol As Directed Metoclopramide HCl 10 mg 01/20/20 10:00 01/21/20 21:52 Reglan IV 10 mg Q6H PRN Administration Nausea And Vomiting Nicotine 21 mg 12/31/19 10:00 01/29/20 09:15 Habitrol TD 21 mg QDAY SUSAN Administration Pantoprazole Sodium 40 mg 01/17/20 10:00 01/29/20 09:15 Protonix IV 40 mg QDAY SUSAN Administration Sodium Chloride 10 ml 12/28/19 10:00 01/29/20 21:47 Sodium Chloride Flush Syringe 10 Ml IV 10 ml BID SUSAN Administration Nutrition/Malnutrition Assess - Dietary Evaluation Nutrition/Malnutrition Findings: Nutrition Notes Start: 12/30/19 08:57 Freq: Status: Active Protocol: Document 01/28/20 12:34 (Rec: 01/28/20 12:38 [id number]) Nutrition Notes Initial or Follow up Reassessment Current Diagnosis Malnutrition Other Pertinent Diagnosis short gut syndrome s/p hemicolectomy, R nephrectomy, anemia Current Diet 12h Cyclic CPN at 125/275/ 125ml/hr Labs/Tests Na 135 BUN 23 Cr 0.5 Pertinent Medications Reviewed Height 5 ft 8 in Weight 62.5 kg [place] Body Weight (kg) 70.00 BMI 20.9 Weight Status Appropriate Subjective/Other Information Cyclic CPN day 28. No new changes. Percent of energy/protein needs met: 89%/100% Burn Absent Trauma Absent GI Symptoms None Current % PO Negligible Minimum of two criteria Yes Body Fat Depletion Mild depletion (non-severe) Muscle Mass Mild Depletion (non-severe) Reduced Director Of Annual Giving Strength Measurably Reduced (severe) #3 Nutrition Diagnosis Altered GI function Diagnosis Progress(for reassessment Continues documentation) #2 Nutrition Diagnosis Malnutrition Diagnosis Progress(for reassessment Continues documentation) #1 Nutrition Diagnosis Inadequate oral intake Diagnosis Progress(for reassessment Continues documentation) Is patient on ventilator? No Is Patient Ambulatory and/or Out of Bed Yes REE-([place]-St. Jeor-ambulatory/OOB) [ [id number]] Calculation Used for Recommendations [place]-St Jeor Additional Notes Protein needs 78-94g (1.25-1. 5g/kg) Fluid needs 1ml/kcal Nutrition Intervention Nutrition Support: Continue 12 hr cyclic CPN at 125/275/125 ml/hr. 80 mEq K, 44 mmol Phos MVI Osmolality 1254. Kcal 1,740 Protein (gm) 95 Carbohydrates (gm) 400 Fat (gm) 50 Fluid (mL) 3,250 Fiber (gm) 0 Goal #1 Meet at least 75% of energy and protein needs via CPN Anticipated Discharge Needs: TPN Follow-Up By: 01/29/20 Additional Comments Labs in AM: Guillermo MENEZES
--- NOTE | 2020-01-30 06:43 | Event Note ---
Date: 01/30/20 I appreciate Ostomy Nurses input, patient marked if it nececssary to move stoma, patient is on the schedule tommorrow which will be for the purpose of revising stoma, possibly relocating it, revise midline incision if necessary. Very difficult case, hopefully we will be able to help patient get social security disabilty for funding home TPN.
[2020-01-30] MEDS: HYDROcodone/APAP 7.5-325MG-15ML ORAL LIQD PO PRN ×2 (07:44→11:58)
[2020-01-30 08:46] LABS: Blood Urea Nitrogen 21 mg/dL (9-20); Calcium 8.2 mg/dL (8.4-10.2); Hemolysis Index 6
[2020-01-30 08:47] LABS: BUN/Creatinine Ratio 35
[2020-01-30] MEDS ORDERED: SODIUM POLYSTYRENE 15 GM/60 ML ORAL LIQD PO SCH (09:00)
[2020-01-30 10:48] LABS: Blood Urea Nitrogen 24 mg/dL (9-20); Calcium 9.6 mg/dL (8.4-10.2); Hemolysis Index 6
[2020-01-30 10:50] LABS: BUN/Creatinine Ratio 40
--- NOTE | 2020-01-30 12:04 | Progress Note ---
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 Patient states for the past 2 days he has had some abdominal distention in the right lower quadrant and crampy 10 out of 10 pain. He has had multiple episodes of nausea and vomiting. Denies fever chills cough cold or congestion. On December 30, [address] showed patient to have free air in colon. Surgical intervention was required. Patient had surgery had partial hemicolectomy during exploratory laparotomy was subsequently intubated and transferred to the intensive care unit. On December 31, 2019 patient returned to the OR for an additional surgery. After initial extubation. Patient was not follow commands agitated unable to really protect airways and therefore was reintubated. -- Nausea/vomiting likely from narcotics induced, limit use of narcotic, reglan as needed Ct abd/pelvis showed no obstruction, distended stomach General surgery recommended to stop all narcotics, strict n.p.o. except ice chips -- Small bowel obstruction Status post exploratory lap x3. per surgery note: Some ischemic bowel, S/P Hemicolectomy, Fistula washed out. CT abdomen and pelvis shows intraperitoneal fluid collection. Now s/p CT-guided paracentesis. Culture negative Monitor vital signs and labs. ID on board. Patient treated with ceftriaxone, Flagyl and fluconazole for p ossible intra-abdominal infection. Cultures negative so far. -- Dehydration: Resolved Patient well-hydrated Continue IV hydration --Acute Metabolic Encephalopathy with subsequent acute respiratory failure Resolved -- Metabolic acidosis Resolved -- ANEMIA of CD Continue to monitor hemoglobin Iron supplements -- Thrombocythemia Initially had thrombocytopenia and there was a concern for HIT blood test was negative Now has been thrombocythemia with platelet count up to 900s. This is likely reactive. Hematology oncology recommendations appreciated -- Severe protein calorie malnutrition cachexia January 25, 2020 I spoke to surgery myself plan is not to have the patient be on TPN forever. Plan will be to readdress the ostomy site. Allow TPN to let the bowel heal. Because patient had ischemic bowel. There was also plans to transfer patient to outpatient TPN clinic at [place]. Plan for anastomotic correction Sunday January 26, 2020 patient up walking around with physical therapy. Pain is better. Having problems at the ostomy site. States difficult to keep from draining and pulls off ostomy to Plan keshia to have revision done on possibly Tuesday. January 27, 2020. Patient in good spirits no bowel movement discussed plan with myself and Dr. Vick. Plan for revision of ostomy site potentially on Tuesday. January 28, 2020 no new changes in the p.m. chemical burn from bile at ostomy site. Requiring increased pain medications. No longer dehydrated no longer encephalopathic. 01/28: Awaiting change in ostomy site due to leaking. Continue supportive care and pain control. Discussed risk with pain meds extensively 01/29: - Patient Problems (1) Small bowel obstruction Current Visit: Yes Status: Deleted Plan to address problem: Status post surgery. 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 Patient is status post surgical intervention. Patient tolerated procedure well. Patient's abdominal pain has essentially resolved. Now 1 the complications is short bowel syndrome. Patient only had 4 feet of some mild bile left. This is not enough for immediate adequate absorption. Patient currently on TPN. Scheduled to have a reanastomosis of ostomy site on Tuesday or . Plan for patient to have TPN for approximately 4 to 6 months until bowel is able to heal. At that time patient will require another's procedure which is highly complicated and attempts to extend the amount of patient is bile and create better reabsorption. Even when this is complete I do not see patient improved enough to return to a viable occupation. Patient will endure chronic malnutrition with limited endurance and fatigue and potential electrolyte abnormalities that were now lateral patient in my opinion to ever gain adequate employment. Patient will be limited by his nutritional status as well as pain requirements. It is my opinion the patient would not be to adequately perform any job functions. Patient has difficulty now with ADLs and requires assistance with most ADLs. (2) Dehydration Current Visit: Yes Status: Resolved Plan to address problem: Resolved. Patient at risk for dehydration secondary to short bowel syndrome. (3) Wound dehiscence/ Colostomy (4) Metabolic acidosis Current Visit: Yes Status: Acute Plan to address problem: Has improved from 4.6-3. Post surgery. (5) Depression: Related to the medical condition. (6)Insomnia: Trazdone at night (7) DVT prophylaxis Current Visit: Yes Status: Deleted Plan to address problem: Anticoagulation being held secondary to surgery and risk of bleeding. History Interval history: Patient seen and examined, still with abdominal discomfort, angry due to pain Hospitalist Physical - Physical exam Narrative exam: General appearance: Present: no acute distress, cachectic, - EENT Eyes: PERRL, EOM intact ENT: hearing intact, clear oral mucosa, dentition normal - Respiratory Respiratory effort: normal Respiratory: bilateral: CTA Extremities: pulses intact, No edema, normal color, Full ROM - Gastrointestinal General gastrointestinal: Present: soft, tender, hypoactive bowel sounds, wound dehiescie other (Colostomy site excoriations to the left, although noted retraction. Right intact. Hypoactive bowel sounds. Tender to deep palpation.) - Integumentary Integumentary: erythema - Musculoskeletal Musculoskeletal: generalized weakness - Neurologic Neurologic: CNII-XII intact, focal deficits, moves all extremities - Psychiatric Psychiatric: appropriate mood/affect, intact judgment & insight, memory intact, cooperative - Constitutional Vitals: Temp Pulse Resp BP Pulse Ox 98.3 F 99 H 18 111/71 99 01/30/20 07:28 01/30/20 07:28 01/30/20 07:28 01/30/20 07:28 01/30/20 07:28 General appearance: Present: no acute distress, cachectic Results - Labs CBC & Chem 7: 01/25/20 07:54 01/30/20 11:00 Labs: Laboratory Last Values WBC 8.9 K/mm3 (4.5-11.0) 01/25/20 07:54 RBC 3.17 M/mm3 (3.65-5.03) L 01/25/20 07:54 Hgb 9.4 gm/dl (11.8-15.2) L 01/25/20 07:54 Hgb Comment See scanned result 01/12/20 06:15 Hct 26.4 % (35.5-45.6) L 01/25/20 07:54 MCV 83 fl (84-94) L 01/25/20 07:54 MCH 30 pg (28-32) 01/25/20 07:54 MCHC 36 % (32-34) H 01/25/20 07:54 RDW 15.4 % (13.2-15.2) H 01/25/20 07:54 Plt Count 556 K/mm3 (140-440) H 01/25/20 07:54 Lymph % (Auto) 13.2 % (13.4-35.0) L 01/25/20 07:54 Chambers % (Auto) 9.1 % (0.0-7.3) H 01/25/20 07:54 Eos % (Auto) 1.3 % (0.0-4.3) 01/25/20 07:54 Baso % (Auto) 0.2 % (0.0-1.8) 01/25/20 07:54 Lymph # (Auto) 1.2 K/mm3 (1.2-5.4) 01/25/20 07:54 Chambers # (Auto) 0.8 K/mm3 (0.0-0.8) 01/25/20 07:54 Eos # (Auto) 0.1 K/mm3 (0.0-0.4) 01/25/20 07:54 Baso # (Auto) 0.0 K/mm3 (0.0-0.1) 01/25/20 07:54 Add Manual Diff Complete 01/05/20 09:17 Total Counted 100 01/05/20 09:17 Seg Neutrophils % 76.2 % (40.0-70.0) H 01/25/20 07:54 Seg Neuts % (Manual) 97.0 % (40.0-70.0) H 01/05/20 09:17 Band Neutrophils % 0 % 01/05/20 09:17 Lymphocytes % (Manual) 0 % (13.4-35.0) L 01/05/20 09:17 Reactive Lymphs % (Man) 0 % 01/05/20 09:17 Monocytes % (Manual) 2.0 % (0.0-7.3) 01/05/20 09:17 Eosinophils % (Manual) 1.0 % (0.0-4.3) 01/05/20 09:17 Basophils % (Manual) 0 % (0.0-1.8) 01/05/20 09:17 Metamyelocytes % 0 % 01/05/20 09:17 Myelocytes % 0 % 01/05/20 09:17 Promyelocytes % 0 % 01/05/20 09:17 Blast Cells % 0 % 01/05/20 09:17 Nucleated RBC % Not Reportable 01/05/20 09:17 Seg Neutrophils # 6.8 K/mm3 (1.8-7.7) 01/25/20 07:54 Seg Neutrophils # Man 11.7 K/mm3 (1.8-7.7) H 01/05/20 09:17 Band Neutrophils # 0.0 K/mm3 01/05/20 09:17 Lymphocytes # (Manual) 0.0 K/mm3 (1.2-5.4) L 01/05/20 09:17 Abs React Lymphs (Man) 0.0 K/mm3 01/05/20 09:17 Monocytes # (Manual) 0.2 K/mm3 (0.0-0.8) 01/05/20 09:17 Eosinophils # (Manual) 0.1 K/mm3 (0.0-0.4) 01/05/20 09:17 Basophils # (Manual) 0.0 K/mm3 (0.0-0.1) 01/05/20 09:17 Metamyelocytes # 0.0 K/mm3 01/05/20 09:17 Myelocytes # 0.0 K/mm3 01/05/20 09:17 Promyelocytes # 0.0 K/mm3 01/05/20 09:17 Blast Cells # 0.0 K/mm3 01/05/20 09:17 WBC Morphology Not Reportable 01/05/20 09:17 Hypersegmented Neuts Not Reportable 01/05/20 09:17 Hyposegmented Neuts Not Reportable 01/05/20 09:17 Hypogranular Neuts Not Reportable 01/05/20 09:17 Smudge Cells Not Reportable 01/05/20 09:17 Toxic Granulation Not Reportable 01/05/20 09:17 Toxic Vacuolation Not Reportable 01/05/20 09:17 Dohle Bodies Not Reportable 01/05/20 09:17 Pelger-Huet Anomaly Not Reportable 01/05/20 09:17 Anuradha Rods Not Reportable 01/05/20 09:17 Platelet Estimate Consistent w auto 01/05/20 09:17 Clumped Platelets Not Reportable 01/05/20 09:17 Plt Clumps, EDTA Not Reportable 01/05/20 09:17 Large Platelets Not Reportable 01/05/20 09:17 Giant Platelets Not Reportable 01/05/20 09:17 Platelet Satelliting Not Reportable 01/05/20 09:17 Plt Morphology Comment Not Reportable 01/05/20 09:17 RBC Morphology Not Reportable 01/05/20 09:17 Dimorphic RBCs Not Reportable 01/05/20 09:17 Polychromasia Not Reportable 01/05/20 09:17 Hypochromasia Not Reportable 01/05/20 09:17 Poikilocytosis Not Reportable 01/05/20 09:17 Anisocytosis Few 01/05/20 09:17 Microcytosis Not Reportable 01/05/20 09:17 Macrocytosis Not Reportable 01/05/20 09:17 Spherocytes Not Reportable 01/05/20 09:17 Pappenheimer Bodies Not Reportable 01/05/20 09:17 Sickle Cells Not Reportable 01/05/20 09:17 Target Cells 1+ 01/05/20 09:17 Tear Drop Cells Not Reportable 01/05/20 09:17 Ovalocytes Not Reportable 01/05/20 09:17 Helmet Cells Not Reportable 01/05/20 09:17 [place] Bodies Not Reportable 01/05/20 09:17 [place] Rings Not Reportable 01/05/20 09:17 Kaylie Cells Not Reportable 01/05/20 09:17 Bite Cells Not Reportable 01/05/20 09:17 Crenated Cell Not Reportable 01/05/20 09:17 Elliptocytes Not Reportable 01/05/20 09:17 Acanthocytes (Spur) Not Reportable 01/05/20 09:17 Rouleaux Not Reportable 01/05/20 09:17 Hemoglobin C Crystals Not Reportable 01/05/20 09:17 Schistocytes Not Reportable 01/05/20 09:17 Malaria parasites Not Reportable 01/05/20 09:17 Sickle Cell Solubility See scanned result 01/12/20 06:15 Hemoglobin A See scanned result 01/12/20 06:15 Hemoglobin A2 See scanned result 01/12/20 06:15 Hemoglobin A2 Prime See scanned result 01/12/20 06:15 Hemoglobin C See scanned result 01/12/20 06:15 Hemoglobin D See scanned result 01/12/20 06:15 Hemoglobin E See scanned result 01/12/20 06:15 Hgb F Diffential Stain See scanned result 01/12/20 06:15 Hemoglobin F Quant See scanned result 01/12/20 06:15 Hemoglobin G See scanned result 01/12/20 06:15 Hemoglobin S See scanned result 01/12/20 06:15 Hemoglobin [place] See scanned result 01/12/20 06:15 Hemoglobin [place] See scanned result 01/12/20 06:15 Hemoglobin Prema See scanned result 01/12/20 06:15 Variant Hemoglobin See scanned result 01/12/20 06:15 Abnorm Hgb IEF Confirm See scanned result 01/12/20 06:15 Hemoglobin Interpret See scanned result 01/12/20 06:15 Hemoglobinopathy Note See scanned result 01/12/20 06:15 Christ Bodies Not Reportable 01/05/20 09:17 Hem Pathologist Commnt No 01/05/20 09:17 PT 14.8 Sec. (12.2-14.9) 01/08/20 19:18 INR 1.14 (0.87-1.13) H 01/08/20 19:18 APTT 42.2 Sec. (24.2-36.6) H 12/30/19 22:30 Heparin Anti-Xa, Unfract Negative (Negative) 01/03/20 11:08 ABG pH 7.456 pH Units (7.350-7.450) H 01/01/20 05:15 POC ABG pCO2 34.7 mmHg (32.0-48.0) 12/31/19 04:03 ABG pCO2 34.1 mm Hg 01/01/20 05:15 POC ABG pO2 95.1 mmHg (83-108) 12/31/19 04:03 ABG pO2 85.3 mm Hg (80.0-90.0) 01/01/20 05:15 POC ABG HCO3 20.2 12/31/19 04:03 ABG HCO3 23.5 mmol/L (20.0-26.0) 01/01/20 05:15 ABG O2 Saturation 97.1 % (95.0-99.0) 01/01/20 05:15 ABG O2 Content 9.4 (0.0-44) 01/01/20 05:15 POC ABG Base Excess -4.2 12/31/19 04:03 ABG Base Excess -0.3 mmol/L (-2.0-3.0) 01/01/20 05:15 ABG Hemoglobin 6.9 gm/dl (14.0-18.0) L 01/01/20 05:15 ABG Carboxyhemoglobin 1.4 % (0.0-5.0) 01/01/20 05:15 ABG Methemoglobin 0.7 % (0.0-1.5) 01/01/20 05:15 Oxyhemoglobin 95.0 % (95.0-99.0) 01/01/20 05:15 FiO2 35 % 01/01/20 05:15 Sodium 138 mmol/L (137-145) 01/30/20 09:23 Potassium 4.5 mmol/L (3.6-5.0) 01/30/20 11:00 Chloride 101.2 mmol/L (98-107) 01/30/20 09:23 Carbon Dioxide 27 mmol/L (22-30) 01/30/20 09:23 Anion Gap 14 mmol/L 01/30/20 09:23 BUN 24 mg/dL (9-20) H 01/30/20 09:23 Creatinine 0.6 mg/dL (0.8-1.3) L 01/30/20 09:23 Estimated GFR > 60 ml/min 01/30/20 09:23 BUN/Creatinine Ratio 40 % 01/30/20 09:23 Glucose 101 mg/dL (75-100) H 01/30/20 09:23 Glucose 101 mg/dL (75-100) H 01/30/20 09:23 POC Glucose 160 mg/dL (70-105) H 01/29/20 06:22 Lactic Acid 1.00 mmol/L (0.7-2.0) 01/05/20 06:35 Calcium 9.6 mg/dL (8.4-10.2) D 01/30/20 09:23 Phosphorus 7.20 mg/dL (2.5-4.5) H D 01/30/20 09:23 Magnesium 2.10 mg/dL (1.7-2.3) 01/28/20 07:15 Iron 21 ug/dL (49-181) L 01/13/20 05:00 TIBC 179 mcg/dL (250-450) L 01/13/20 05:00 Total Bilirubin 0.60 mg/dL (0.1-1.2) 01/23/20 06:43 Direct Bilirubin 1.3 mg/dL (0-0.2) H 01/08/20 08:30 Indirect Bilirubin 1.0 mg/dL 01/08/20 08:30 AST 30 units/L (5-40) 01/23/20 06:43 ALT 58 units/L (7-56) H 01/23/20 06:43 Alkaline Phosphatase 152 units/L (35-129) H 01/23/20 06:43 Total Protein 6.5 g/dL (6.3-8.2) 01/23/20 06:43 Albumin 2.6 g/dL (3.9-5) L 01/23/20 06:43 Albumin/Globulin Ratio 0.7 % 01/23/20 06:43 Triglycerides 72 mg/dL (2-149) 01/25/20 07:54 Lipase 9 units/L (13-60) L 12/29/19 14:29 Serotonin Release Assay See scanned result 01/03/20 11:08 Urine Color Yellow (Yellow) 12/27/19 Unknown Urine Turbidity Clear (Clear) 12/27/19 Unknown Urine pH 5.0 (5.0-7.0) 12/27/19 Unknown Ur Specific Kinde > 1.059 (1.003-1.030) H 12/27/19 Unknown Urine Protein 30 mg/dl mg/dL (Negative) 12/27/19 Unknown Urine Glucose (UA) Neg mg/dL (Negative) 12/27/19 Unknown Urine Ketones 20 mg/dL (Negative) 12/27/19 Unknown Urine Blood Mod (Negative) 12/27/19 Unknown Urine Nitrite Neg (Negative) 12/27/19 Unknown Urine Bilirubin Neg (Negative) 12/27/19 Unknown Urine Urobilinogen < 2.0 mg/dL (<2.0) 12/27/19 Unknown Ur Leukocyte Esterase Neg (Negative) 12/27/19 Unknown Urine WBC (Auto) 2.0 /HPF (0.0-6.0) 12/27/19 Unknown Urine RBC (Auto) 28.0 /HPF (0.0-6.0) 12/27/19 Unknown U Epithel Cells (Auto) < 1.0 /HPF (0-13.0) 12/27/19 Unknown Urine Mucus 3+ /HPF 12/27/19 Unknown Fluid Type Paracentesis 01/09/20 Unknown Fluid Color Fauzia 01/09/20 Unknown Fluid Appearance Turbid 01/09/20 Unknown Fluid WBC 3225 /mm3 01/09/20 Unknown Fluid RBC 325 /mm3 01/09/20 Unknown Fluid Seg Neutrophils 87.0 % 01/09/20 Unknown Fluid Lymphocytes 10.0 % 01/09/20 Unknown Fluid Reactive Lymphs 0 % 01/09/20 Unknown Fluid Monocytes 3.0 % 01/09/20 Unknown Fluid Eosinophils 0 % 01/09/20 Unknown Fluid Basophils 0 % 01/09/20 Unknown Heparin-induced Plt Ab Negative (Negative) 01/03/20 11:08 UF Heparin High Dose 4 % Release 01/03/20 11:08 SU UFH Low Dose 0.1 9 % Release 01/03/20 11:08 SU UFH Low Dose 0.5 4 % Release 01/03/20 11:08 Blood Type B POSITIVE 01/12/20 06:15 Antibody Screen Negative 01/12/20 06:15 Crossmatch See Detail 12/29/19 19:52 Azul/IV: Voiding Method Urinal IV Catheter Type [Left Forearm INT / Saline Lock ] IV Catheter Type [Right Chest] IVAD / Port IV Catheter Type [Left Hand] INT / Saline Lock IV Catheter Type [Left Wrist] Peripheral IV IV Catheter Type [Right Peripheral IV Forearm] IV Catheter Type [Right Upper PICC Line arm] IV Catheter Type [Right INT / Saline Lock Antecubital] Active Medications - Current Medications Current Medications: Generic Name Dose Route Start Last Admin Trade Name Freq PRN Reason Stop Dose Admin Hydrocodone Bitart/Acetaminophen 7.5 mg 01/20/20 10:00 01/29/20 21:41 Hydrocodone/Apap 7.5-325 PO 7.5 mg Q6HR PRN Administration Pain, Moderate (4-6) Fat Emulsion Intravenous 250 mls @ 21 mls/hr 01/28/20 20:00 01/28/20 20:10 Intralipid 20% IV 01/29/20 07:59 21 mls/hr DAILY@[email or web address] SUSAN Administration Amino Acids/Electrolytes/Dextrose 3,000 mls @ 0 mls/hr 01/28/20 20:00 10/09/21 20:08 Tpn Adult IV 01/29/20 08:00 275 mls/hr DAILY@1999 SUSAN Administration Protocol As Directed Metoclopramide HCl 10 mg 01/20/20 10:00 01/21/20 21:52 Reglan IV 10 mg Q6H PRN Administration Nausea And Vomiting Nicotine 21 mg 12/31/19 10:00 01/29/20 09:15 Habitrol TD 21 mg QDAY SUSAN Administration Pantoprazole Sodium 40 mg 01/17/20 10:00 01/29/20 09:15 Protonix IV 40 mg QDAY SUSAN Administration Sodium Chloride 10 ml 12/28/19 10:00 01/29/20 21:47 Sodium Chloride Flush Syringe 10 Ml IV 10 ml BID SUSAN Administration Sodium Polystyrene Sulfonate 30 gm 01/30/20 09:00 Kionex PO 01/30/20 12:00 ONCE SUSAN Nutrition/Malnutrition Assess - Dietary Evaluation Nutrition/Malnutrition Findings: Nutrition Notes Start: 12/30/19 08:57 Freq: Status: Active Protocol: Document 01/29/20 10:00 (Rec: 01/30/20 08:02 [id number]) Nutrition Notes Initial or Follow up Reassessment Current Diagnosis Malnutrition Other Pertinent Diagnosis short gut syndrome s/p hemicolectomy, R nephrectomy, anemia Current Diet 12h Cyclic CPN at 125/275/ 125ml/hr Labs/Tests No labs Pertinent Medications Reviewed Height 5 ft 8 in Weight 62.5 kg Ariel Body Weight (kg) 70.00 BMI 20.9 Weight Status Appropriate Subjective/Other Information Cyclic CPN day 29. No new changes. Percent of energy/protein needs met: 100%/100% Burn Absent Trauma Absent GI Symptoms None Current % PO Negligible Minimum of two criteria Yes Body Fat Depletion Mild depletion (non-severe) Muscle Mass Mild Depletion (non-severe) Reduced Jinrikisha Driver Strength Measurably Reduced (severe) #3 Nutrition Diagnosis Altered GI function Diagnosis Progress(for reassessment Continues documentation) #2 Nutrition Diagnosis Malnutrition Diagnosis Progress(for reassessment Continues documentation) #1 Nutrition Diagnosis Inadequate oral intake Diagnosis Progress(for reassessment Continues documentation) Is patient on ventilator? No Is Patient Ambulatory and/or Out of Bed Yes REE-([place]-St. Jeor-ambulatory/OOB) [ [id number] [id number]] Calculation Used for Recommendations [place]-St Jeor Additional Notes Protein needs 78-94g (1.25-1. 5g/kg) Fluid needs 1ml/kcal Nutrition Intervention Nutrition Support: Continue 12 hr cyclic CPN at 125/275/125 ml/hr. MVI, MTE Osmolality 1254. Kcal 1,740 Protein (gm) 95 Carbohydrates (gm) 400 Fat (gm) 0 Fluid (mL) 3,000 Fiber (gm) 0 Goal #1 Meet at least 75% of energy and protein needs via CPN Anticipated Discharge Needs: TPN Follow-Up By: 01/30/20 Additional Comments Labs in AM: Guillermo MENEZES
[2020-01-30] MEDS ORDERED: LORazepam 2 MG/ML VIAL IV NR (12:19)
[2020-01-30] MEDS: NICOTINE 21 MG/24 HR PATCH TD SCH (12:47)
[2020-01-30] MEDS: PANTOPRAZOLE 40 MG INJ IV SCH (12:48)
--- NOTE | 2020-01-30 14:20 | XRay Report ---
ABDOMEN 1 VIEW(S) INDICATION / CLINICAL INFORMATION: abd pain. COMPARISON: 12/29/2019 FINDINGS: TUBES / LINES: None. The nasogastric tube has been removed. BOWEL GAS PATTERN: No significant abnormality. FREE AIR / EXTRALUMINAL GAS: None seen. ADDITIONAL FINDINGS: Right nephrectomy changes. IMPRESSION: No significant abnormality. Signer Name: Chandan Prakash Jr, MD Signed: 01/30/2020 2:15 PM Workstation Name: [id number]
--- NOTE | 2020-01-30 15:04 | Anesthesia Consultation ---
<CONNER SMITH - Last Filed: 01/30/20 15:01> Anesthesia Consult and Med Hx Date of service: 01/30/20 - Airway Anesthetic Teeth Evaluation: Good ROM Head & Neck: Adequate Mental/Hyoid Distance: Adequate Mallampati Class: Class II Intubation Access Assessment: Probably Good - Pre-Operative Health Status ASA Pre-Surgery Classification: ASA3 Proposed Anesthetic Plan: General - Pulmonary Hx Smoking: Yes (1/4 pack per day) Hx Asthma: No Hx Respiratory Symptoms: No SOB: No COPD: No Home Oxygen Therapy: No Hx Pneumonia: No Hx Sleep Apnea: No - Cardiovascular System Hx Hypertension: No Hx Coronary Artery Disease: No Hx Heart Attack/AMI: No Hx Angina: No Hx Percutaneous Transluminal Coronary Angioplasty (PTCA): No Hx Cardia Arrhythmia: No Hx Pacemaker: No Hx Internal Defibrillator: No Hx Valvular Heart Disease: No Hx Heart Murmur: No Hx Peripheral Vascular Disease: No - Central Nervous System Hx Neuromuscular Disorder: No Hx Seizures: No CVA: No Hx Back Pain: No Hx Psychiatric Problems: Yes (depression, had episode of agitation on 01/29, requiring Ativan ) - Gastrointestinal Hx Ulcer: No Hx Gastroesophageal Reflux Disease: No (ascitis, mulfunctioning jejunostomy) - Endocrine Hx Renal Disease: Yes (S/P Nephrectomy Right) Hx End Stage Renal Disease: No Hx Cirrhosis: No Hx Liver Disease: No Hx Insulin Dependent Diabetes: No Hx Non-Insulin Dependent Diabetes: No Hx Thyroid Disease: No Hx Hypothyroidism: No Hx Hyperthyroidism: No - Hematic Hx Anemia: No Hx Sickle Cell Disease: No - Other Systems Hx Alcohol Use: Yes Hx Substance Use: Yes (Marijuana- last used 5 days ago) Hx Cancer: No Hx Obesity: No (multutrition, on TPN) - Additional Comments Anesthesia Medical History Comments: S/P Appendectomy <ANDREA PUENTES - Last Filed: 01/31/20 10:00> Anesthesia Consult and Med Hx - Airway Intubation Access Assessment: Probably Good (previous easy intuabtion) - Pulmonary Exam CTA: Yes - Cardiac Exam Cardiac Exam: RRR - Pre-Operative Health Status ASA Pre-Surgery Classification: ASA3 Proposed Anesthetic Plan: General - Pulmonary Hx Smoking: Yes - Endocrine Hx Renal Disease: Yes - Hematic Hx Anemia: Yes - Other Systems Hx Substance Use: Yes (THC) - Additional Comments Anesthesia Medical History Comments: Presented approx 1 month ago with bowel obstruction and is now s/p multiple abdominal surgeries and extensive bowel resection now scheduled for ostomy revision. Most recent progress notes and lab studies reviewed. No previous anesthetic complications.
[2020-01-30] MEDS ORDERED: FAT EMULSIONS 20% 250 ML IV SCH (20:00)
[2020-01-30] MEDS ORDERED: TOTAL PARENTERAL NUTRITION 3,000 ML IV SCH (20:00)
[2020-01-30] MEDS ORDERED: traZODone 50 MG TAB PO SCH (22:00)
[2020-01-31 06:18] LABS: Hematocrit 30.3 % (35.5-45.6); Hemoglobin 10.2 gm/dl (11.8-15.2); Mean Corpuscular HGB Conc 34 % (32-34); Mean Corpuscular Volume 84 fl (84-94); Platelet Count 426 K/mm3 (140-440); Red Blood Count 3.62 M/mm3 (3.65-5.03); Red Cell Distribution Width 15.6 % (13.2-15.2)
[2020-01-31 06:40] LABS: Blood Urea Nitrogen 23 mg/dL (9-20); Calcium 8.7 mg/dL (8.4-10.2); Hemolysis Index 15
[2020-01-31 06:46] LABS: BUN/Creatinine Ratio 38
[2020-01-31] MEDS: NICOTINE 21 MG/24 HR PATCH TD SCH ×2 (08:28→10:00)
[2020-01-31] MEDS: PANTOPRAZOLE 40 MG INJ IV SCH ×2 (08:29→10:00)
--- NOTE | 2020-01-31 09:58 | Anesthesia Day of Surgery ---
Anesthesia Day of Surgery - Day of Surgery Patient Examined: Yes Patient H&P Reviewed: Yes Patient is NPO: Yes
[2020-01-31] MEDS ORDERED: SODIUM CHLORIDE 0.9% 1000 ML 1,000 ML ONE ×2 (09:59→12:24)
[2020-01-31] MEDS ORDERED: LIDOCAINE MPF (2%) 20 MG/1 ML VIAL 5 ML ONE (10:10)
[2020-01-31] MEDS ORDERED: ROCURONIUM 50 MG/5 ML INJ IV ONE (10:10)
[2020-01-31] MEDS ORDERED: dexAMETHasone 20 MG/5 ML VIAL ONE (10:10)
[2020-01-31] MEDS ORDERED: propofoL 200 MG/20 ML VIAL IV ONE (10:11)
[2020-01-31] MEDS ORDERED: ceFAZolin/Water 2 GM/20 ML 2 GM/20 ML SYRINGE IV ONE (10:20)
[2020-01-31] MEDS ORDERED: SODIUM CHLORIDE 0.9% 1000 ML 1,000 ML IV SCH (10:30)
[2020-01-31] MEDS ORDERED: ceFAZolin/STERILE WATER 2 GM/20 ML SYRINGE IV NR (10:30)
[2020-01-31] MEDS ORDERED: PHENYLEPHRINE/NS 1,000 MCG/10 ML SYRINGE (OR USE) IV ONE (10:49)
[2020-01-31] MEDS ORDERED: MIDAZOLAM 2 MG/2 ML INJ IV NR (11:00)
[2020-01-31] MEDS ORDERED: ONDANSETRON 4 MG/2 ML INJ IV PRN ×3 (11:00→16:00)
[2020-01-31] MEDS ORDERED: LACTATED RINGERS 1,000 ML ONE (12:07)
[2020-01-31] MEDS ORDERED: SODIUM CHLORIDE 0.9% IRR 1,500 ML BOTTLE IR ONE ×2 (13:09)
[2020-01-31] MEDS ORDERED: HYDROmorphone 1 MG/1 ML INJ ONE (13:42)
--- NOTE | 2020-01-31 14:32 | Post Operative Note ---
Pre-op diagnosis: necrotic jejunostomy, fascial dehiscience Post-op diagnosis: other (remaining bowel very friable.) Findings: , necrotics stoma of end jejunostomy. mucous fistula needed revision as well. all remaining bowel viable. fascial dehiscience. Procedure: Exploratory laparotomy, adhesiolysis, revision of jejunostomy /stoma, revision of mucous fistula, relocation of end jejunostomy, Anesthesia: GETA Surgeon: MANI EM Estimated blood loss: other (500cc) Specimen disposition: to lab Condition: stable Disposition: floor
[2020-01-31] MEDS ORDERED: LORazepam 2 MG/ML VIAL IV PRN (14:38)
[2020-01-31] MEDS: HYDROmorphone 1 MG/1 ML INJ IV PRN ×5 (14:55→21:47)
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
--- NOTE | 2020-01-31 16:28 | Post Anesthesia Evaluation ---
- Post Anesthesia Evaluation Patient Participated: Yes Airway Patent: Yes Stable Respiratory Function: Yes Nausea/Vomiting: No Temp > 96.8F: Yes Pain Manageable: Yes Adequeate Hydration: Yes Anesthesia Complications: No
--- NOTE | 2020-01-31 17:26 | Progress Note ---
Assessment and Plan Assessment and plan: Patient is a 39-year-old F [place] male with a past medical history of right- sided nephrectomy status post Wilms tumor and appendectomy both of which occurred in the late 80s who is presenting with abdominal pain. Patient states for the past 2 days he has had some abdominal distention in the right lower quadrant and crampy 10 out of 10 pain. He has had multiple episodes of nausea and vomiting. Denies fever chills cough cold or congestion. On December 30, [address] showed patient to have free air in colon. Surgical intervention was required. Patient had surgery had partial hemicolectomy during exploratory laparotomy was subsequently intubated and transferred to the intensive care unit. On December 31, 2019 patient returned to the OR for an additional surgery. After initial extubation. Patient was not follow commands agitated unable to really protect airways and therefore was reintubated. -- Nausea/vomiting likely from narcotics induced, limit use of narcotic, reglan as needed Ct abd/pelvis showed no obstruction, distended stomach General surgery recommended to stop all narcotics, strict n.p.o. except ice chips -- Small bowel obstruction Status post exploratory lap x3. per surgery note: Some ischemic bowel, S/P Hemicolectomy, Fistula washed out. CT abdomen and pelvis shows intraperitoneal fluid collection. Now s/p CT-guided paracentesis. Culture negative Monitor vital signs and labs. ID on board. Patient treated with ceftriaxone, Flagyl and fluconazole for p ossible intra-abdominal infection. Cultures negative so far. -- Dehydration: Resolved Patient well-hydrated Continue IV hydration --Acute Metabolic Encephalopathy with subsequent acute respiratory failure Resolved -- Metabolic acidosis Resolved -- ANEMIA of CD Continue to monitor hemoglobin Iron supplements -- Thrombocythemia Initially had thrombocytopenia and there was a concern for HIT blood test was negative Now has been thrombocythemia with platelet count up to 900s. This is likely reactive. Hematology oncology recommendations appreciated -- Severe protein calorie malnutrition cachexia January 25, 2020 I spoke to surgery myself plan is not to have the patient be on TPN forever. Plan will be to readdress the ostomy site. Allow TPN to let the bowel heal. Because patient had ischemic bowel. There was also plans to transfer patient to outpatient TPN clinic at [place]. Plan for anastomotic correction Sunday January 26, 2020 patient up walking around with physical therapy. Pain is better. Having problems at the ostomy site. States difficult to keep from draining and pulls off ostomy to Plan keshia to have revision done on possibly Tuesday. January 27, 2020. Patient in good spirits no bowel movement discussed plan with myself and Dr. Vick. Plan for revision of ostomy site potentially on Tuesday. January 28, 2020 no new changes in the p.m. chemical burn from bile at ostomy site. Requiring increased pain medications. No longer dehydrated no longer encephalopathic. 01/28: Awaiting change in ostomy site due to leaking. Continue supportive care and pain control. Discussed risk with pain meds extensively 01/29: No new complaints today except for pain which was adjusted and addressed by the surgeon 01/30: Patient was seen and evaluated this morning is going for ostomy revision today. Review of post surgical note indicates Pre-op diagnosis: necrotic jejunostomy, fascial dehiscience Post-op diagnosis: other (remaining bowel very friable.) Findings: , necrotics stoma of end jejunostomy. mucous fistula needed revision as well. all remaining bowel viable. fascial dehiscience. Procedure: Exploratory laparotomy, adhesiolysis, revision of jejunostomy /stoma, revision of mucous fistula, relocation of end jejunostomy, Anesthesia: GETA We will continue to monitor check labs in a.m. to ensure no insensible loss of electrolytes. Continue pain control. Case management for discharge planning when okay with surgeon. Patient continues on TPN at this time. - Patient Problems (1) Small bowel obstruction Current Visit: Yes Status: Deleted Plan to address problem: Status post surgery. 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 Patient is status post surgical intervention. Patient tolerated procedure well. Patient's abdominal pain has essentially resolved. Now 1 the complications is short bowel syndrome. Patient only had 4 feet of some mild bile left. This is not enough for immediate adequate absorption. Patient currently on TPN. Scheduled to have a reanastomosis of ostomy site on Tuesday or . Plan for patient to have TPN for approximately 4 to 6 months until bowel is able to heal. At that time patient will require another's procedure which is highly complicated and attempts to extend the amount of patient is bile and create better reabsorption. Even when this is complete I do not see patient improved enough to return to a viable occupation. Patient will endure chronic malnutrition with limited endurance and fatigue and potential electrolyte abn ormalities that were now lateral patient in my opinion to ever gain adequate employment. Patient will be limited by his nutritional status as well as pain requirements. It is my opinion the patient would not be to adequately perform any job functions. Patient has difficulty now with ADLs and requires assistance with most ADLs. (2) Dehydration Current Visit: Yes Status: Resolved Plan to address problem: Resolved. Patient at risk for dehydration secondary to short bowel syndrome. (3) Wound dehiscence/ Colostomy (4) Metabolic acidosis Current Visit: Yes Status: Acute Plan to address problem: Has improved from 4.6-3. Post surgery. (5) Depression: Related to the medical condition. (6)Insomnia: Trazdone at night (7) DVT prophylaxis Current Visit: Yes Status: Deleted Plan to address problem: Anticoagulation being held secondary to surgery and risk of bleeding. History Interval history: Patient seen and examined, patient for surgical revision of ostomy today. Hospitalist Physical - Physical exam Narrative exam: General appearance: Present: no acute distress, cachectic, - EENT Eyes: PERRL, EOM intact ENT: hearing intact, clear oral mucosa, dentition normal - Respiratory Respiratory effort: normal Respiratory: bilateral: CTA Extremities: pulses intact, No edema, normal color, Full ROM - Gastrointestinal General gastrointestinal: Present: soft, tender, hypoactive bowel sounds, wound dehiescie other (Colostomy site excoriations to the left, although noted retraction. Right intact. Hypoactive bowel sounds. Tender to deep palpation.) - Integumentary Integumentary: erythema - Musculoskeletal Musculoskeletal: generalized weakness - Neurologic Neurologic: CNII-XII intact, focal deficits, moves all extremities - Psychiatric Psychiatric: appropriate mood/affect, intact judgment & insight, memory intact, cooperative - Constitutional Vitals: Temp Pulse Resp BP Pulse Ox 98.1 F 110 H 18 123/92 100 01/31/20 16:20 01/31/20 16:20 01/31/20 16:20 01/31/20 16:20 01/31/20 16:20 General appearance: Present: no acute distress, cachectic Results - Labs CBC & Chem 7: 01/31/20 05:40 01/31/20 05:40 Labs: Laboratory Last Values WBC 6.3 K/mm3 (4.5-11.0) 01/31/20 05:40 RBC 3.62 M/mm3 (3.65-5.03) L 01/31/20 05:40 Hgb 10.2 gm/dl (11.8-15.2) L 01/31/20 05:40 Hgb Comment See scanned result 01/12/20 06:15 Hct 30.3 % (35.5-45.6) L 01/31/20 05:40 MCV 84 fl (84-94) 01/31/20 05:40 MCH 28 pg (28-32) 01/31/20 05:40 MCHC 34 % (32-34) 01/31/20 05:40 RDW 15.6 % (13.2-15.2) H 01/31/20 05:40 Plt Count 426 K/mm3 (140-440) 01/31/20 05:40 Lymph % (Auto) 13.2 % (13.4-35.0) L 01/25/20 07:54 [place] % (Auto) 9.1 % (0.0-7.3) H 01/25/20 07:54 Eos % (Auto) 1.3 % (0.0-4.3) 01/25/20 07:54 Baso % (Auto) 0.2 % (0.0-1.8) 01/25/20 07:54 Lymph # (Auto) 1.2 K/mm3 (1.2-5.4) 01/25/20 07:54 [place] # (Auto) 0.8 K/mm3 (0.0-0.8) 01/25/20 07:54 Eos # (Auto) 0.1 K/mm3 (0.0-0.4) 01/25/20 07:54 Baso # (Auto) 0.0 K/mm3 (0.0-0.1) 01/25/20 07:54 Add Manual Diff Complete 01/05/20 09:17 Total Counted 100 01/05/20 09:17 Seg Neutrophils % 76.2 % (40.0-70.0) H 01/25/20 07:54 Seg Neuts % (Manual) 97.0 % (40.0-70.0) H 01/05/20 09:17 Band Neutrophils % 0 % 01/05/20 09:17 Lymphocytes % (Manual) 0 % (13.4-35.0) L 01/05/20 09:17 Reactive Lymphs % (Man) 0 % 01/05/20 09:17 Monocytes % (Manual) 2.0 % (0.0-7.3) 01/05/20 09:17 Eosinophils % (Manual) 1.0 % (0.0-4.3) 01/05/20 09:17 Basophils % (Manual) 0 % (0.0-1.8) 01/05/20 09:17 Metamyelocytes % 0 % 01/05/20 09:17 Myelocytes % 0 % 01/05/20 09:17 Promyelocytes % 0 % 01/05/20 09:17 Blast Cells % 0 % 01/05/20 09:17 Nucleated RBC % Not Reportable 01/05/20 09:17 Seg Neutrophils # 6.8 K/mm3 (1.8-7.7) 01/25/20 07:54 Seg Neutrophils # Man 11.7 K/mm3 (1.8-7.7) H 01/05/20 09:17 Band Neutrophils # 0.0 K/mm3 01/05/20 09:17 Lymphocytes # (Manual) 0.0 K/mm3 (1.2-5.4) L 01/05/20 09:17 Abs React Lymphs (Man) 0.0 K/mm3 01/05/20 09:17 Monocytes # (Manual) 0.2 K/mm3 (0.0-0.8) 01/05/20 09:17 Eosinophils # (Manual) 0.1 K/mm3 (0.0-0.4) 01/05/20 09:17 Basophils # (Manual) 0.0 K/mm3 (0.0-0.1) 01/05/20 09:17 Metamyelocytes # 0.0 K/mm3 01/05/20 09:17 Myelocytes # 0.0 K/mm3 01/05/20 09:17 Promyelocytes # 0.0 K/mm3 01/05/20 09:17 Blast Cells # 0.0 K/mm3 01/05/20 09:17 WBC Morphology Not Reportable 01/05/20 09:17 Hypersegmented Neuts Not Reportable 01/05/20 09:17 Hyposegmented Neuts Not Reportable 01/05/20 09:17 Hypogranular Neuts Not Reportable 01/05/20 09:17 Smudge Cells Not Reportable 01/05/20 09:17 Toxic Granulation Not Reportable 01/05/20 09:17 Toxic Vacuolation Not Reportable 01/05/20 09:17 Dohle Bodies Not Reportable 01/05/20 09:17 Pelger-Huet Anomaly Not Reportable 01/05/20 09:17 Anuradha Rods Not Reportable 01/05/20 09:17 Platelet Estimate Consistent w auto 01/05/20 09:17 Clumped Platelets Not Reportable 01/05/20 09:17 Plt Clumps, EDTA Not Reportable 01/05/20 09:17 Large Platelets Not Reportable 01/05/20 09:17 Giant Platelets Not Reportable 01/05/20 09:17 Platelet Satelliting Not Reportable 01/05/20 09:17 Plt Morphology Comment Not Reportable 01/05/20 09:17 RBC Morphology Not Reportable 01/05/20 09:17 Dimorphic RBCs Not Reportable 01/05/20 09:17 Polychromasia Not Reportable 01/05/20 09:17 Hypochromasia Not Reportable 01/05/20 09:17 Poikilocytosis Not Reportable 01/05/20 09:17 Anisocytosis Few 01/05/20 09:17 Microcytosis Not Reportable 01/05/20 09:17 Macrocytosis Not Reportable 01/05/20 09:17 Spherocytes Not Reportable 01/05/20 09:17 Pappenheimer Bodies Not Reportable 01/05/20 09:17 Sickle Cells Not Reportable 01/05/20 09:17 Target Cells 1+ 01/05/20 09:17 Tear Drop Cells Not Reportable 01/05/20 09:17 Ovalocytes Not Reportable 01/05/20 09:17 Helmet Cells Not Reportable 01/05/20 09:17 Aleman-[place] Bodies Not Reportable 01/05/20 09:17 Fontana Rings Not Reportable 01/05/20 09:17 Cascade Cells Not Reportable 01/05/20 09:17 Bite Cells Not Reportable 01/05/20 09:17 Crenated Cell Not Reportable 01/05/20 09:17 Elliptocytes Not Reportable 01/05/20 09:17 Acanthocytes (Spur) Not Reportable 01/05/20 09:17 Rouleaux Not Reportable 01/05/20 09:17 Hemoglobin C Crystals Not Reportable 01/05/20 09:17 Schistocytes Not Reportable 01/05/20 09:17 Malaria parasites Not Reportable 01/05/20 09:17 Sickle Cell Solubility See scanned result 01/12/20 06:15 Hemoglobin A See scanned result 01/12/20 06:15 Hemoglobin A2 See scanned result 01/12/20 06:15 Hemoglobin A2 Prime See scanned result 01/12/20 06:15 Hemoglobin C See scanned result 01/12/20 06:15 Hemoglobin D See scanned result 01/12/20 06:15 Hemoglobin E See scanned result 01/12/20 06:15 Hgb F Diffential Stain See scanned result 01/12/20 06:15 Hemoglobin F Quant See scanned result 01/12/20 06:15 Hemoglobin G See scanned result 01/12/20 06:15 Hemoglobin S See scanned result 01/12/20 06:15 Hemoglobin [place] See scanned result 01/12/20 06:15 Hemoglobin [place] See scanned result 01/12/20 06:15 Hemoglobin Prema See scanned result 01/12/20 06:15 Variant Hemoglobin See scanned result 01/12/20 06:15 Abnorm Hgb IEF Confirm See scanned result 01/12/20 06:15 Hemoglobin Interpret See scanned result 01/12/20 06:15 Hemoglobinopathy Note See scanned result 01/12/20 06:15 Christ Bodies Not Reportable 01/05/20 09:17 Hem Pathologist Commnt No 01/05/20 09:17 PT 14.8 Sec. (12.2-14.9) 01/08/20 19:18 INR 1.14 (0.87-1.13) H 01/08/20 19:18 APTT 42.2 Sec. (24.2-36.6) H 12/30/19 22:30 Heparin Anti-Xa, Unfract Negative (Negative) 01/03/20 11:08 ABG pH 7.456 pH Units (7.350-7.450) H 01/01/20 05:15 POC ABG pCO2 34.7 mmHg (32.0-48.0) 12/31/19 04:03 ABG pCO2 34.1 mm Hg 01/01/20 05:15 POC ABG pO2 95.1 mmHg (83-108) 12/31/19 04:03 ABG pO2 85.3 mm Hg (80.0-90.0) 01/01/20 05:15 POC ABG HCO3 20.2 12/31/19 04:03 ABG HCO3 23.5 mmol/L (20.0-26.0) 01/01/20 05:15 ABG O2 Saturation 97.1 % (95.0-99.0) 01/01/20 05:15 ABG O2 Content 9.4 (0.0-44) 01/01/20 05:15 POC ABG Base Excess -4.2 12/31/19 04:03 ABG Base Excess -0.3 mmol/L (-2.0-3.0) 01/01/20 05:15 ABG Hemoglobin 6.9 gm/dl (14.0-18.0) L 01/01/20 05:15 ABG Carboxyhemoglobin 1.4 % (0.0-5.0) 01/01/20 05:15 ABG Methemoglobin 0.7 % (0.0-1.5) 01/01/20 05:15 Oxyhemoglobin 95.0 % (95.0-99.0) 01/01/20 05:15 FiO2 35 % 01/01/20 05:15 Sodium 136 mmol/L (137-145) L 01/31/20 05:40 Potassium 4.4 mmol/L (3.6-5.0) 01/31/20 05:40 Chloride 102.0 mmol/L (98-107) 01/31/20 05:40 Carbon Dioxide 25 mmol/L (22-30) 01/31/20 05:40 Anion Gap 13 mmol/L 01/31/20 05:40 BUN 23 mg/dL (9-20) H 01/31/20 05:40 Creatinine 0.6 mg/dL (0.8-1.3) L 01/31/20 05:40 Estimated GFR > 60 ml/min 01/31/20 05:40 BUN/Creatinine Ratio 38 % 01/31/20 05:40 Glucose 127 mg/dL (75-100) H 01/31/20 05:40 POC Glucose 100 mg/dL (70-105) 01/31/20 10:53 Lactic Acid 1.00 mmol/L (0.7-2.0) 01/05/20 06:35 Calcium 8.7 mg/dL (8.4-10.2) 01/31/20 05:40 Phosphorus 2.70 mg/dL (2.5-4.5) D 01/31/20 05:40 Magnesium 2.10 mg/dL (1.7-2.3) 01/28/20 07:15 Iron 21 ug/dL (49-181) L 01/13/20 05:00 TIBC 179 mcg/dL (250-450) L 01/13/20 05:00 Total Bilirubin 0.60 mg/dL (0.1-1.2) 01/23/20 06:43 Direct Bilirubin 1.3 mg/dL (0-0.2) H 01/08/20 08:30 Indirect Bilirubin 1.0 mg/dL 01/08/20 08:30 AST 30 units/L (5-40) 01/23/20 06:43 ALT 58 units/L (7-56) H 01/23/20 06:43 Alkaline Phosphatase 152 units/L (35-129) H 01/23/20 06:43 Total Protein 6.5 g/dL (6.3-8.2) 01/23/20 06:43 Albumin 2.6 g/dL (3.9-5) L 01/23/20 06:43 Albumin/Globulin Ratio 0.7 % 01/23/20 06:43 Triglycerides 72 mg/dL (2-149) 01/25/20 07:54 Lipase 9 units/L (13-60) L 12/29/19 14:29 Serotonin Release Assay See scanned result 01/03/20 11:08 Urine Color Yellow (Yellow) 12/27/19 Unknown Urine Turbidity Clear (Clear) 12/27/19 Unknown Urine pH 5.0 (5.0-7.0) 12/27/19 Unknown Ur Specific [place] > 1.059 (1.003-1.030) H 12/27/19 Unknown Urine Protein 30 mg/dl mg/dL (Negative) 12/27/19 Unknown Urine Glucose (UA) Neg mg/dL (Negative) 12/27/19 Unknown Urine Ketones 20 mg/dL (Negative) 12/27/19 Unknown Urine Blood Mod (Negative) 12/27/19 Unknown Urine Nitrite Neg (Negative) 12/27/19 Unknown Urine Bilirubin Neg (Negative) 12/27/19 Unknown Urine Urobilinogen < 2.0 mg/dL (<2.0) 12/27/19 Unknown Ur Leukocyte Esterase Neg (Negative) 12/27/19 Unknown Urine WBC (Auto) 2.0 /HPF (0.0-6.0) 12/27/19 Unknown Urine RBC (Auto) 28.0 /HPF (0.0-6.0) 12/27/19 Unknown U Epithel Cells (Auto) < 1.0 /HPF (0-13.0) 12/27/19 Unknown Urine Mucus 3+ /HPF 12/27/19 Unknown Fluid Type Paracentesis 01/09/20 Unknown Fluid Color Fauzia 01/09/20 Unknown Fluid Appearance Turbid 01/09/20 Unknown Fluid WBC 3225 /mm3 01/09/20 Unknown Fluid RBC 325 /mm3 01/09/20 Unknown Fluid Seg Neutrophils 87.0 % 01/09/20 Unknown Fluid Lymphocytes 10.0 % 01/09/20 Unknown Fluid Reactive Lymphs 0 % 01/09/20 Unknown Fluid Monocytes 3.0 % 01/09/20 Unknown Fluid Eosinophils 0 % 01/09/20 Unknown Fluid Basophils 0 % 01/09/20 Unknown Heparin-induced Plt Ab Negative (Negative) 01/03/20 11:08 UF Heparin High Dose 4 % Release 01/03/20 11:08 SU UFH Low Dose 0.1 9 % Release 01/03/20 11:08 SU UFH Low Dose 0.5 4 % Release 01/03/20 11:08 Blood Type B POSITIVE 01/31/20 06:19 Antibody Screen Negative 01/31/20 06:19 Crossmatch See Detail 01/31/20 06:19 Azul/IV: Voiding Method Toilet IV Catheter Type [Left Forearm INT / Saline Lock ] IV Catheter Type [Right Chest] IVAD / Port IV Catheter Type [Left Hand] INT / Saline Lock IV Catheter Type [Left Wrist] Peripheral IV IV Catheter Type [Right Peripheral IV Forearm] IV Catheter Type [Right Upper PICC Line arm] IV Catheter Type [Right INT / Saline Lock Antecubital] Active Medications - Current Medications Current Medications: Generic Name Dose Route Start Last Admin Trade Name Freq PRN Reason Stop Dose Admin Hydrocodone Bitart/Acetaminophen 7.5 mg 01/20/20 10:00 01/30/20 11:58 Hydrocodone/Apap 7.5-325 PO 7.5 mg Q6HR PRN Administration Pain, Moderate (4-6) Cefazolin Sodium 2 gm 01/31/20 10:30 Ancef/Sterile Water 2 Gm/20 Ml IV 01/31/20 21:00 PREOP NR Hydromorphone HCl 0.5 mg 01/31/20 11:00 01/31/20 15:45 Dilaudid IV 01/31/20 18:00 0.5 mg Q10MIN PRN Administration Pain , Severe (7-10) Hydromorphone HCl 1 mg 01/31/20 14:38 Dilaudid IV Q4H PRN Pain , Severe (7-10) Fat Emulsion Intravenous 250 mls @ 21 mls/hr 01/28/20 20:00 01/28/20 20:10 Intralipid 20% IV 01/29/20 07:59 21 mls/hr [email or web address] SUSAN Administration Amino Acids/Electrolytes/Dextrose 3,000 mls @ 0 mls/hr 01/28/20 20:00 01/28/20 20:08 Tpn Adult IV 01/29/20 08:00 275 mls/hr [email or web address] SUSAN Administration Protocol As Directed Sodium Chloride 1,000 mls @ 100 mls/hr 01/31/20 10:30 01/31/20 10:40 Nacl 0.9% 1000 Ml IV 01/31/20 19:00 100 mls/hr DIRECT SUSAN Administration Amino Acids/Electrolytes/Dextrose 3,000 mls @ 0 mls/hr 01/31/20 20:00 Tpn Adult IV 02/01/20 08:01 [email or web address] [facility] Protocol As Directed Lorazepam 1 mg 01/31/20 16:00 Ativan IV Q4H PRN Anxiety Metoclopramide HCl 10 mg 01/20/20 10:00 01/21/20 21:52 Reglan IV 10 mg Q6H PRN Administration Nausea And Vomiting Midazolam HCl 2 mg 01/31/20 11:00 Versed IV 01/31/20 23:59 PREOP NR Nicotine 21 mg 12/31/19 10:00 01/31/20 10:00 Habitrol TD Not Given QDAY SUSAN Ondansetron HCl 4 mg 01/31/20 16:00 Zofran IV Q8H PRN Nausea And Vomiting Pantoprazole Sodium 40 mg 01/17/20 10:00 01/31/20 10:00 Protonix IV Not Given QDAY [facility] Sodium Chloride 10 ml 12/28/19 10:00 01/30/20 21:37 Sodium Chloride Flush Syringe 10 Ml IV 10 ml BID SUSAN Administration Nutrition/Malnutrition Assess - Dietary Evaluation Nutrition/Malnutrition Findings: Nutrition Notes Start: 12/30/19 08:57 Freq: Status: Active Protocol: Document 01/31/20 11:32 JESÚS (Rec: 01/31/20 11:40 [email or web address] [id number]) Co-Sign 01/31/20 11:32 LM Nutrition Notes Initial or Follow up Reassessment Current Diagnosis Malnutrition Other Pertinent Diagnosis short gut syndrome s/p hemicolectomy, R nephrectomy, anemia Current Diet 12h Cyclic CPN at 125/275/ 125ml/hr Labs/Tests Na 136 BUN 23 Cr 0.6 Pertinent Medications Reviewed Height 5 ft 8 in Weight 62.5 kg [place] Body Weight (kg) 70.00 BMI 20.9 Weight Status Appropriate Subjective/Other Information Cyclic CPN day 31. Surgical revision today. Percent of energy/protein needs met: 100%/100% Burn Absent Trauma Absent GI Symptoms None Current % PO Negligible Minimum of two criteria Yes Body Fat Depletion Mild depletion (non-severe) Muscle Mass Mild Depletion (non-severe) Reduced Curtain Inspector Strength Measurably Reduced (severe) #3 Nutrition Diagnosis Altered GI function Diagnosis Progress(for reassessment Continues documentation) #2 Nutrition Diagnosis Malnutrition Diagnosis Progress(for reassessment Continues documentation) #1 Nutrition Diagnosis Inadequate oral intake Diagnosis Progress(for reassessment Continues documentation) Is patient on ventilator? No Is Patient Ambulatory and/or Out of Bed Yes REE-([facility]-ambulatory/OOB) [ [id number] [id number]] Calculation Used for Recommendations [facility] Additional Notes Protein needs 78-94g (1.25-1. 5g/kg) Fluid needs 1ml/kcal Nutrition Intervention Change Diet Order: Continue CPN Nutrition Support: Continue 12 hr cyclic CPN at 125/275/125 ml/hr. Phos 35 mmol. MVI. Osmolality 1251. Kcal 1,740 Protein (gm) 95 Carbohydrates (gm) 400 Fat (gm) 0 Fluid (mL) 3,000 Fiber (gm) 0 Goal #1 Meet at least 75% of energy and protein needs via CPN Anticipated Discharge Needs: TPN Follow-Up By: 02/01/20 Additional Comments Labs in AM; CMP, Mag, Phos, TG
[2020-01-31] MEDS ORDERED: TOTAL PARENTERAL NUTRITION 3,000 ML IV SCH (20:00)
[2020-01-31] MEDS: LORazepam 2 MG/ML VIAL IV PRN (21:48)
[2020-02-01] MEDS: HYDROmorphone 1 MG/1 ML INJ IV PRN ×4 (01:16→17:46)
[2020-02-01] MEDS: LORazepam 2 MG/ML VIAL IV PRN (04:40)
[2020-02-01 06:13] LABS: Hematocrit 33.6 % (35.5-45.6); Mean Corpuscular HGB Conc 33 % (32-34); Mean Corpuscular Volume 89 fl (84-94); Platelet Count 313 K/mm3 (140-440); Red Blood Count 3.79 M/mm3 (3.65-5.03); Red Cell Distribution Width 15.6 % (13.2-15.2)
[2020-02-01 06:39] LABS: BUN/Creatinine Ratio 33; Blood Urea Nitrogen 20 mg/dL (9-20); Calcium 8.1 mg/dL (8.4-10.2); Hemolysis Index 11
[2020-02-01] MEDS ORDERED: HYDROmorphone 2 MG/1 ML INJ IV SCH (10:30)
[2020-02-01] MEDS: PANTOPRAZOLE 40 MG INJ IV SCH (10:31)
[2020-02-01] MEDS: NICOTINE 21 MG/24 HR PATCH TD SCH (10:31)
--- NOTE | 2020-02-01 12:16 | Progress Note ---
Assessment and Plan POD 1 s/p resuspension and revision of end jejunostomy and mucous fistula, closure of fascial dehiscience, hemodyn stable, afebrile, on iv narcotics for pain, ostomy OK, well perfused, added levaquin to medications, iv,. Continue NPO, ice chips OK, continue present management. labs OK today, no bleeding, renal function OK, I spoke with patient's Dad yesterday by phone to update him on patient's current status. Subjective Date of service: 02/01/20 Patient Reports: Positive: other (complains of incisional pain, patient pulled off his colostomy bag again, even though told repeatedly NOT TO DO THIS) Objective Vital Signs - 12hr 02/01/20 02/01/20 01:18 08:58 Temperature 98.4 F 99.6 F Pulse Rate 111 H 138 H Respiratory 18 18 Rate Blood Pressure 127/84 109/68 O2 Sat by Pulse 100 98 Oximetry - Labs 02/01/20 06:03 02/01/20 06:03 Diabetes panel 02/01/20 Range/Units 06:03 Sodium 136 L (137-145) mmol/L Potassium 4.9 (3.6-5.0) mmol/L Chloride 106.5 (98-107) mmol/L Carbon Dioxide 21 L (22-30) mmol/L BUN 20 (9-20) mg/dL Creatinine 0.6 L (0.8-1.3) mg/dL Glucose 141 H (75-100) mg/dL Calcium 8.1 L (8.4-10.2) mg/dL Calcium panel 02/01/20 02/01/20 Range/Units 06:03 06:03 Calcium 8.1 L (8.4-10.2) mg/dL Phosphorus 3.00 (2.5-4.5) mg/dL Pituitary panel 02/01/20 Range/Units 06:03 Sodium 136 L (137-145) mmol/L Potassium 4.9 (3.6-5.0) mmol/L Chloride 106.5 (98-107) mmol/L Carbon Dioxide 21 L (22-30) mmol/L BUN 20 (9-20) mg/dL Creatinine 0.6 L (0.8-1.3) mg/dL Glucose 141 H (75-100) mg/dL Calcium 8.1 L (8.4-10.2) mg/dL Adrenal panel 02/01/20 Range/Units 06:03 Sodium 136 L (137-145) mmol/L Potassium 4.9 (3.6-5.0) mmol/L Chloride 106.5 (98-107) mmol/L Carbon Dioxide 21 L (22-30) mmol/L BUN 20 (9-20) mg/dL Creatinine 0.6 L (0.8-1.3) mg/dL Glucose 141 H (75-100) mg/dL Calcium 8.1 L (8.4-10.2) mg/dL
--- NOTE | 2020-02-01 12:23 | Event Note ---
Date: 02/01/20 I spoke with the Gen Surgeon system configuration specialist at [place], and gave detailed description of case, he stated he would get back to me. I emphasized that I was not comfortable with this case since I feel it is beyond my skill set, and we have no biliary surgeon as back up. I will update record once I have heard from the [place] General Surgeon.
--- NOTE | 2020-02-01 17:19 | Progress Note ---
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 Patient states for the past 2 days he has had some abdominal distention in the right lower quadrant and crampy 10 out of 10 pain. He has had multiple episodes of nausea and vomiting. Denies fever chills cough cold or congestion. On December 30, [address] showed patient to have free air in colon. Surgical intervention was required. Patient had surgery had partial hemicolectomy during exploratory laparotomy was subsequently intubated and transferred to the intensive care unit. On December 31, 2019 patient returned to the OR for an additional surgery. After initial extubation. Patient was not follow commands agitated unable to really protect airways and therefore was reintubated. -- Nausea/vomiting likely from narcotics induced, limit use of narcotic, reglan as needed Ct abd/pelvis showed no obstruction, distended stomach General surgery recommended to stop all narcotics, strict n.p.o. except ice chips -- Small bowel obstruction Status post exploratory lap x3. per surgery note: Some ischemic bowel, S/P Hemicolectomy, Fistula washed out. CT abdomen and pelvis shows intraperitoneal fluid collection. Now s/p CT-guided paracentesis. Culture negative Monitor vital signs and labs. ID on board. Patient treated with ceftriaxone, Flagyl and fluconazole for p ossible intra-abdominal infection. Cultures negative so far. -- Dehydration: Resolved Patient well-hydrated Continue IV hydration --Acute Metabolic Encephalopathy with subsequent acute respiratory failure Resolved -- Metabolic acidosis Resolved -- ANEMIA of CD Continue to monitor hemoglobin Iron supplements -- Thrombocythemia Initially had thrombocytopenia and there was a concern for HIT blood test was negative Now has been thrombocythemia with platelet count up to 900s. This is likely reactive. Hematology oncology recommendations appreciated -- Severe protein calorie malnutrition cachexia January 25, 2020 I spoke to surgery myself plan is not to have the patient be on TPN forever. Plan will be to readdress the ostomy site. Allow TPN to let the bowel heal. Because patient had ischemic bowel. There was also plans to transfer patient to outpatient TPN clinic at [place]. Plan for anastomotic correction Sunday January 26, 2020 patient up walking around with physical therapy. Pain is better. Having problems at the ostomy site. States difficult to keep from draining and pulls off ostomy to Plan keshia to have revision done on possibly Tuesday. January 27, 2020. Patient in good spirits no bowel movement discussed plan with myself and Dr. Vick. Plan for revision of ostomy site potentially on Tuesday. January 28, 2020 no new changes in the p.m. chemical burn from bile at ostomy site. Requiring increased pain medications. No longer dehydrated no longer encephalopathic. 01/28: Awaiting change in ostomy site due to leaking. Continue supportive care and pain control. Discussed risk with pain meds extensively 01/29: No new complaints today except for pain which was adjusted and addressed by the surgeon 01/30: Patient was seen and evaluated this morning is going for ostomy revision today. Review of post surgical note indicates Pre-op diagnosis: necrotic jejunostomy, fascial dehiscience Post-op diagnosis: other (remaining bowel very friable.) Findings: , necrotics stoma of end jejunostomy. mucous fistula needed revision as well. all remaining bowel viable. fascial dehiscience. Procedure: Exploratory laparotomy, adhesiolysis, revision of jejunostomy /stoma, revision of mucous fistula, relocation of end jejunostomy, Anesthesia: GETA We will continue to monitor check labs in a.m. to ensure no insensible loss of electrolytes. Continue pain control. Case management for discharge planning when okay with surgeon. Patient continues on TPN at this time. 01/31: Continue supportive care. Will obtain Psych consultation for possible depression from prolonged hospitalization. Monitor developing leukocytosis. plan discussed with patient and patients sister - Patient Problems (1) Small bowel obstruction Current Visit: Yes Status: Deleted Plan to address problem: Status post surgery. 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 Patient is status post surgical intervention. Patient tolerated procedure well. Patient's abdominal pain has essentially resolved. Now 1 the complications is short bowel syndrome. Patient only had 4 feet of some mild bile left. This is not enough for immediate adequate absorption. Patient currently on TPN. Scheduled to have a reanastomosis of ostomy site on Tuesday or . Plan for patient to have TPN for approximately 4 to 6 months until bowel is able to heal. At that time patient will require another's procedure which is highly complicated and attempts to extend the amount of patient is bile and create better reabsorption. Even when this is complete I do not see patient improved enough to return to a viable occupation. Patient will endure chronic malnutrition with limited endurance and fatigue and potential electrolyte abnormalities that were now lateral patient in my opinion to ever gain adequate employment. Patient will be limited by his nutritional status as well as pain requirements. It is my opinion the patient would not be to adequately perform any job functions. Patient has difficulty now with ADLs and requires assistance with most ADLs. (2) Dehydration Current Visit: Yes Status: Resolved Plan to address problem: Resolved. Patient at risk for dehydration secondary to short bowel syndrome. (3) Wound dehiscence/ Colostomy (4) Metabolic acidosis Current Visit: Yes Status: Acute Plan to address problem: Has improved from 4.6-3. Post surgery. (5) Depression: Related to the medical condition. (6)Insomnia: Trazdone at night (7) DVT prophylaxis Current Visit: Yes Status: Deleted Plan to address problem: Anticoagulation being held secondary to surgery and risk of bleeding. History Interval history: Patient seen and examined, patient upset today, pulled off his ostomy bag. Hospitalist Physical - Physical exam Narrative exam: General appearance: Present: no acute distress, cachectic, marked temporal wasting - EENT Eyes: PERRL, EOM intact ENT: hearing intact, clear oral mucosa, dentition normal - Respiratory Respiratory effort: normal Respiratory: bilateral: CTA Extremities: pulses intact, No edema, normal color, Full ROM - Gastrointestinal General gastrointestinal: Present: soft, tender, hypoactive bowel sounds, wound dehiescie other, packing in place (Colostomy site excoriations to the left, although noted retraction. Right intact. Hypoactive bowel sounds. Tender to deep palpation.) - Integumentary Integumentary: erythema - Musculoskeletal Musculoskeletal: generalized weakness - Neurologic Neurologic: CNII-XII intact, focal deficits, moves all extremities - Psychiatric Psychiatric: angry, upset, intact judgment & insight, memory intact, cooperative - Constitutional Vitals: Temp Pulse Resp BP Pulse Ox 98.9 F 114 H 20 115/77 99 02/01/20 15:40 02/01/20 15:40 02/01/20 15:40 02/01/20 15:40 02/01/20 15:40 General appearance: Present: no acute distress, cachectic Results - Labs CBC & Chem 7: 10/30/20 06:03 02/01/20 06:03 Labs: Laboratory Last Values WBC 13.1 K/mm3 (4.5-11.0) H 02/01/20 06:03 RBC 3.79 M/mm3 (3.65-5.03) 02/01/20 06:03 Hgb 11.0 gm/dl (11.8-15.2) L 02/01/20 06:03 Hgb Comment See scanned result 01/12/20 06:15 Hct 33.6 % (35.5-45.6) L 02/01/20 06:03 MCV 89 fl (84-94) 02/01/20 06:03 MCH 29 pg (28-32) 02/01/20 06:03 MCHC 33 % (32-34) 02/01/20 06:03 RDW 15.6 % (13.2-15.2) H 02/01/20 06:03 Plt Count 313 K/mm3 (140-440) 02/01/20 06:03 Lymph % (Auto) 13.2 % (13.4-35.0) L 01/25/20 07:54 Sac % (Auto) 9.1 % (0.0-7.3) H 01/25/20 07:54 Eos % (Auto) 1.3 % (0.0-4.3) 01/25/20 07:54 Baso % (Auto) 0.2 % (0.0-1.8) 01/25/20 07:54 Lymph # (Auto) 1.2 K/mm3 (1.2-5.4) 01/25/20 07:54 Sac # (Auto) 0.8 K/mm3 (0.0-0.8) 01/25/20 07:54 Eos # (Auto) 0.1 K/mm3 (0.0-0.4) 01/25/20 07:54 Baso # (Auto) 0.0 K/mm3 (0.0-0.1) 01/25/20 07:54 Add Manual Diff Complete 01/05/20 09:17 Total Counted 100 01/05/20 09:17 Seg Neutrophils % 76.2 % (40.0-70.0) H 01/25/20 07:54 Seg Neuts % (Manual) 97.0 % (40.0-70.0) H 01/05/20 09:17 Band Neutrophils % 0 % 01/05/20 09:17 Lymphocytes % (Manual) 0 % (13.4-35.0) L 01/05/20 09:17 Reactive Lymphs % (Man) 0 % 01/05/20 09:17 Monocytes % (Manual) 2.0 % (0.0-7.3) 01/05/20 09:17 Eosinophils % (Manual) 1.0 % (0.0-4.3) 01/05/20 09:17 Basophils % (Manual) 0 % (0.0-1.8) 01/05/20 09:17 Metamyelocytes % 0 % 01/05/20 09:17 Myelocytes % 0 % 01/05/20 09:17 Promyelocytes % 0 % 01/05/20 09:17 Blast Cells % 0 % 01/05/20 09:17 Nucleated RBC % Not Reportable 01/05/20 09:17 Seg Neutrophils # 6.8 K/mm3 (1.8-7.7) 01/25/20 07:54 Seg Neutrophils # Man 11.7 K/mm3 (1.8-7.7) H 01/05/20 09:17 Band Neutrophils # 0.0 K/mm3 01/05/20 09:17 Lymphocytes # (Manual) 0.0 K/mm3 (1.2-5.4) L 01/05/20 09:17 Abs React Lymphs (Man) 0.0 K/mm3 01/05/20 09:17 Monocytes # (Manual) 0.2 K/mm3 (0.0-0.8) 01/05/20 09:17 Eosinophils # (Manual) 0.1 K/mm3 (0.0-0.4) 01/05/20 09:17 Basophils # (Manual) 0.0 K/mm3 (0.0-0.1) 01/05/20 09:17 Metamyelocytes # 0.0 K/mm3 01/05/20 09:17 Myelocytes # 0.0 K/mm3 01/05/20 09:17 Promyelocytes # 0.0 K/mm3 01/05/20 09:17 Blast Cells # 0.0 K/mm3 01/05/20 09:17 WBC Morphology Not Reportable 01/05/20 09:17 Hypersegmented Neuts Not Reportable 01/05/20 09:17 Hyposegmented Neuts Not Reportable 01/05/20 09:17 Hypogranular Neuts Not Reportable 01/05/20 09:17 Smudge Cells Not Reportable 01/05/20 09:17 Toxic Granulation Not Reportable 01/05/20 09:17 Toxic Vacuolation Not Reportable 01/05/20 09:17 Dohle Bodies Not Reportable 01/05/20 09:17 Pelger-Huet Anomaly Not Reportable 01/05/20 09:17 Anuradha Rods Not Reportable 01/05/20 09:17 Platelet Estimate Consistent w auto 01/05/20 09:17 Clumped Platelets Not Reportable 01/05/20 09:17 Plt Clumps, EDTA Not Reportable 01/05/20 09:17 Large Platelets Not Reportable 01/05/20 09:17 Giant Platelets Not Reportable 01/05/20 09:17 Platelet Satelliting Not Reportable 01/05/20 09:17 Plt Morphology Comment Not Reportable 01/05/20 09:17 RBC Morphology Not Reportable 01/05/20 09:17 Dimorphic RBCs Not Reportable 01/05/20 09:17 Polychromasia Not Reportable 01/05/20 09:17 Hypochromasia Not Reportable 01/05/20 09:17 Poikilocytosis Not Reportable 01/05/20 09:17 Anisocytosis Few 01/05/20 09:17 Microcytosis Not Reportable 01/05/20 09:17 Macrocytosis Not Reportable 01/05/20 09:17 Spherocytes Not Reportable 01/05/20 09:17 Pappenheimer Bodies Not Reportable 01/05/20 09:17 Sickle Cells Not Reportable 01/05/20 09:17 Target Cells 1+ 01/05/20 09:17 Tear Drop Cells Not Reportable 01/05/20 09:17 Ovalocytes Not Reportable 01/05/20 09:17 Helmet Cells Not Reportable 01/05/20 09:17 [place] Bodies Not Reportable 01/05/20 09:17 Clio Rings Not Reportable 01/05/20 09:17 Kaylie Cells Not Reportable 01/05/20 09:17 Bite Cells Not Reportable 01/05/20 09:17 Crenated Cell Not Reportable 01/05/20 09:17 Elliptocytes Not Reportable 01/05/20 09:17 Acanthocytes (Spur) Not Reportable 01/05/20 09:17 Rouleaux Not Reportable 01/05/20 09:17 Hemoglobin C Crystals Not Reportable 01/05/20 09:17 Schistocytes Not Reportable 01/05/20 09:17 Malaria parasites Not Reportable 01/05/20 09:17 Sickle Cell Solubility See scanned result 01/12/20 06:15 Hemoglobin A See scanned result 01/12/20 06:15 Hemoglobin A2 See scanned result 01/12/20 06:15 Hemoglobin A2 Prime See scanned result 01/12/20 06:15 Hemoglobin C See scanned result 01/12/20 06:15 Hemoglobin D See scanned result 01/12/20 06:15 Hemoglobin E See scanned result 01/12/20 06:15 Hgb F Diffential Stain See scanned result 01/12/20 06:15 Hemoglobin F Quant See scanned result 01/12/20 06:15 Hemoglobin G See scanned result 01/12/20 06:15 Hemoglobin S See scanned result 01/12/20 06:15 Hemoglobin [place] See scanned result 01/12/20 06:15 Hemoglobin [place] See scanned result 01/12/20 06:15 Hemoglobin Prema See scanned result 01/12/20 06:15 Variant Hemoglobin See scanned result 01/12/20 06:15 Abnorm Hgb IEF Confirm See scanned result 01/12/20 06:15 Hemoglobin Interpret See scanned result 01/12/20 06:15 Hemoglobinopathy Note See scanned result 01/12/20 06:15 Christ Bodies Not Reportable 01/05/20 09:17 Hem Pathologist Commnt No 01/05/20 09:17 PT 14.8 Sec. (12.2-14.9) 01/08/20 19:18 INR 1.14 (0.87-1.13) H 01/08/20 19:18 APTT 42.2 Sec. (24.2-36.6) H 12/30/19 22:30 Heparin Anti-Xa, Unfract Negative (Negative) 01/03/20 11:08 ABG pH 7.456 pH Units (7.350-7.450) H 01/01/20 05:15 POC ABG pCO2 34.7 mmHg (32.0-48.0) 12/31/19 04:03 ABG pCO2 34.1 mm Hg 01/01/20 05:15 POC ABG pO2 95.1 mmHg (83-108) 12/31/19 04:03 ABG pO2 85.3 mm Hg (80.0-90.0) 01/01/20 05:15 POC ABG HCO3 20.2 12/31/19 04:03 ABG HCO3 23.5 mmol/L (20.0-26.0) 01/01/20 05:15 ABG O2 Saturation 97.1 % (95.0-99.0) 01/01/20 05:15 ABG O2 Content 9.4 (0.0-44) 01/01/20 05:15 POC ABG Base Excess -4.2 12/31/19 04:03 ABG Base Excess -0.3 mmol/L (-2.0-3.0) 01/01/20 05:15 ABG Hemoglobin 6.9 gm/dl (14.0-18.0) L 01/01/20 05:15 ABG Carboxyhemoglobin 1.4 % (0.0-5.0) 01/01/20 05:15 ABG Methemoglobin 0.7 % (0.0-1.5) 01/01/20 05:15 Oxyhemoglobin 95.0 % (95.0-99.0) 01/01/20 05:15 FiO2 35 % 01/01/20 05:15 Sodium 136 mmol/L (137-145) L 02/01/20 06:03 Potassium 4.9 mmol/L (3.6-5.0) 02/01/20 06:03 Chloride 106.5 mmol/L (98-107) 02/01/20 06:03 Carbon Dioxide 21 mmol/L (22-30) L 02/01/20 06:03 Anion Gap 13 mmol/L 02/01/20 06:03 BUN 20 mg/dL (9-20) 02/01/20 06:03 Creatinine 0.6 mg/dL (0.8-1.3) L 02/01/20 06:03 Estimated GFR > 60 ml/min 02/01/20 06:03 BUN/Creatinine Ratio 33 % 02/01/20 06:03 Glucose 141 mg/dL (75-100) H 02/01/20 06:03 POC Glucose 145 mg/dL (70-105) H 02/01/20 06:14 Lactic Acid 1.00 mmol/L (0.7-2.0) 01/05/20 06:35 Calcium 8.1 mg/dL (8.4-10.2) L 02/01/20 06:03 Phosphorus 3.00 mg/dL (2.5-4.5) 02/01/20 06:03 Magnesium 2.10 mg/dL (1.7-2.3) 01/28/20 07:15 Iron 21 ug/dL (49-181) L 01/13/20 05:00 TIBC 179 mcg/dL (250-450) L 01/13/20 05:00 Total Bilirubin 0.60 mg/dL (0.1-1.2) 01/23/20 06:43 Direct Bilirubin 1.3 mg/dL (0-0.2) H 01/08/20 08:30 Indirect Bilirubin 1.0 mg/dL 01/08/20 08:30 AST 30 units/L (5-40) 01/23/20 06:43 ALT 58 units/L (7-56) H 01/23/20 06:43 Alkaline Phosphatase 152 units/L (35-129) H 01/23/20 06:43 Total Protein 6.5 g/dL (6.3-8.2) 01/23/20 06:43 Albumin 2.6 g/dL (3.9-5) L 01/23/20 06:43 Albumin/Globulin Ratio 0.7 % 01/23/20 06:43 Triglycerides 72 mg/dL (2-149) 01/25/20 07:54 Lipase 9 units/L (13-60) L 12/29/19 14:29 Serotonin Release Assay See scanned result 01/03/20 11:08 Urine Color Yellow (Yellow) 12/27/19 Unknown Urine Turbidity Clear (Clear) 12/27/19 Unknown Urine pH 5.0 (5.0-7.0) 12/27/19 Unknown Ur Specific [place] > 1.059 (1.003-1.030) H 12/27/19 Unknown Urine Protein 30 mg/dl mg/dL (Negative) 12/27/19 Unknown Urine Glucose (UA) Neg mg/dL (Negative) 12/27/19 Unknown Urine Ketones 20 mg/dL (Negative) 12/27/19 Unknown Urine Blood Mod (Negative) 12/27/19 Unknown Urine Nitrite Neg (Negative) 12/27/19 Unknown Urine Bilirubin Neg (Negative) 12/27/19 Unknown Urine Urobilinogen < 2.0 mg/dL (<2.0) 12/27/19 Unknown Ur Leukocyte Esterase Neg (Negative) 12/27/19 Unknown Urine WBC (Auto) 2.0 /HPF (0.0-6.0) 12/27/19 Unknown Urine RBC (Auto) 28.0 /HPF (0.0-6.0) 12/27/19 Unknown U Epithel Cells (Auto) < 1.0 /HPF (0-13.0) 12/27/19 Unknown Urine Mucus 3+ /HPF 12/27/19 Unknown Fluid Type Paracentesis 01/09/20 Unknown Fluid Color Fauzia 01/09/20 Unknown Fluid Appearance Turbid 01/09/20 Unknown Fluid WBC 3225 /mm3 01/09/20 Unknown Fluid RBC 325 /mm3 01/09/20 Unknown Fluid Seg Neutrophils 87.0 % 01/09/20 Unknown Fluid Lymphocytes 10.0 % 01/09/20 Unknown Fluid Reactive Lymphs 0 % 01/09/20 Unknown Fluid Monocytes 3.0 % 01/09/20 Unknown Fluid Eosinophils 0 % 01/09/20 Unknown Fluid Basophils 0 % 01/09/20 Unknown Heparin-induced Plt Ab Negative (Negative) 01/03/20 11:08 UF Heparin High Dose 4 % Release 01/03/20 11:08 SU UFH Low Dose 0.1 9 % Release 01/03/20 11:08 SU UFH Low Dose 0.5 4 % Release 01/03/20 11:08 Blood Type B POSITIVE 01/31/20 06:19 Antibody Screen Negative 01/31/20 06:19 Crossmatch See Detail 01/31/20 06:19 Azul/IV: Voiding Method Urinal IV Catheter Type [Left Forearm INT / Saline Lock ] IV Catheter Type [Right Chest] IVAD / Port IV Catheter Type [Left Hand] INT / Saline Lock IV Catheter Type [Left Wrist] Peripheral IV IV Catheter Type [Right Peripheral IV Forearm] IV Catheter Type [Right Upper PICC Line arm] IV Catheter Type [Right INT / Saline Lock Antecubital] Active Medications - Current Medications Current Medications: Generic Name Dose Route Start Last Admin Trade Name Freq PRN Reason Stop Dose Admin Hydrocodone Bitart/Acetaminophen 7.5 mg 01/20/20 10:00 01/30/20 11:58 Hydrocodone/Apap 7.5-325 PO 7.5 mg Q6HR PRN Administration Pain, Moderate (4-6) Hydromorphone HCl 1 mg 01/31/20 14:38 02/01/20 14:48 Dilaudid IV 1 mg Q4H PRN Administration Pain , Severe (7-10) Fat Emulsion Intravenous 250 mls @ 21 mls/hr 01/28/20 20:00 01/28/20 20:10 Intralipid 20% IV 01/29/20 07:59 21 mls/hr [email or web address] [facility] Administration Amino Acids/Electrolytes/Dextrose 3,000 mls @ 0 mls/hr 01/28/20 20:00 01/28/20 20:08 Tpn Adult IV 01/29/20 08:00 275 mls/hr [email or web address] [facility] Administration Protocol As Directed Levofloxacin/Dextrose 750 mg in 150 mls @ 100 mls/hr 02/01/20 11:00 02/01/20 10:32 Levaquin 750mg/150ml IV 100 mls/hr Q24HR SUSAN Administration Protocol Amino Acids/Electrolytes/Dextrose 3,000 mls @ 0 mls/hr 02/01/20 20:00 Tpn Adult IV 02/02/20 08:01 [email or web address] [facility] Protocol As Directed Fat Emulsion Intravenous 250 mls @ 21 mls/hr 02/01/20 20:00 Intralipid 20% IV 02/02/20 08:00 [email or web address] [facility] Lorazepam 1 mg 01/31/20 16:00 02/01/20 04:40 Ativan IV 1 mg Q4H PRN Administration Anxiety Metoclopramide HCl 10 mg 01/20/20 10:00 01/21/20 21:52 Reglan IV 10 mg Q6H PRN Administration Nausea And Vomiting Nicotine 21 mg 12/31/19 10:00 02/01/20 10:31 Habitrol TD 21 mg QDAY SUSAN Administration Ondansetron HCl 4 mg 01/31/20 16:00 02/01/20 14:48 Zofran IV 4 mg Q8H PRN Administration Nausea And Vomiting Pantoprazole Sodium 40 mg 01/17/20 10:00 02/01/20 10:31 Protonix IV 40 mg QDAY SUSAN Administration Sodium Chloride 10 ml 12/28/19 10:00 02/01/20 10:31 Sodium Chloride Flush Syringe 10 Ml IV 10 ml BID SUSAN Administration Nutrition/Malnutrition Assess - Dietary Evaluation Nutrition/Malnutrition Findings: Nutrition Notes Start: 12/30/19 08:57 Freq: Status: Active Protocol: Document 02/01/20 11:52 LP (Rec: 02/01/20 12:01 LP [id number]) Nutrition Notes Initial or Follow up Reassessment Current Diagnosis Malnutrition Other Pertinent Diagnosis short gut syndrome s/p hemicolectomy, R nephrectomy, anemia Current Diet 12h Cyclic CPN at 125/275/ 125ml/hr Labs/Tests Reviewed Pertinent Medications Reviewed Height 5 ft 8 in Weight 62.5 kg [place] Body Weight (kg) 70.00 BMI 20.9 Weight Status Appropriate Subjective/Other Information 12 hour cyclic CPN day 32. Had revision of muscous fistula and relocation of end jejunostomy. Percent of energy/protein needs met: 89%/100% Burn Absent Trauma Absent GI Symptoms None Current % PO Negligible Minimum of two criteria Yes Body Fat Depletion Mild depletion (non-severe) Muscle Mass Mild Depletion (non-severe) Reduced [employer] Strength Measurably Reduced (severe) #3 Nutrition Diagnosis Altered GI function Diagnosis Progress(for reassessment Continues documentation) #2 Nutrition Diagnosis Malnutrition Diagnosis Progress(for reassessment Continues documentation) #1 Nutrition Diagnosis Inadequate oral intake Diagnosis Progress(for reassessment Continues documentation) Is patient on ventilator? No Is Patient Ambulatory and/or Out of Bed Yes REE-([facility]-ambulatory/OOB) [ [id number]] Calculation Used for Recommendations [facility] Additional Notes Protein needs 78-94g (1.25-1. 5g/kg) Fluid needs 1ml/kcal Nutrition Intervention Change Diet Order: Continue CPN Nutrition Support: Continue 12 hr cyclic CPN at 125/275/125 ml/hr. 40mEq K, 6mEq Ca, MTE (not given yesterday) MVI, lipids. Osmolality 1228. Kcal 2,240 Protein (gm) 95 Carbohydrates (gm) 400 Fat (gm) 50 Fluid (mL) 3,250 Fiber (gm) 0 Goal #1 Meet at least 75% of energy and protein needs via CPN Anticipated Discharge Needs: 12 hour Cyclic TPN Follow-Up By: 02/02/20 Additional Comments Labs in AM: CMPCeciles.
[2020-02-01] MEDS ORDERED: TOTAL PARENTERAL NUTRITION 3,000 ML IV SCH (20:00)
[2020-02-01] MEDS ORDERED: FAT EMULSIONS 20% 250 ML IV SCH (20:00)
[2020-02-02] MEDS: HYDROmorphone 1 MG/1 ML INJ IV PRN ×5 (00:07→22:03)
[2020-02-02] MEDS ORDERED: ACETAMINOPHEN 325 MG/10.15 ML ORAL LIQD UNIT DOSE PO PRN (02:50)
[2020-02-02] MEDS: LORazepam 2 MG/ML VIAL IV PRN (02:56)
[2020-02-02] MEDS: metroNIDAZOLE/NS 500 MG/100 ML 500 MG/100 ML BAG IV SCH ×3 (06:13→22:03)
--- NOTE | 2020-02-02 06:13 | Event Note ---
Date: 02/02/20 POD Fever noted, I have added flagyll to antibiotics regime. 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 This is an extremely difficult management problem, there is no further role for surgical intervention for several months, since with the intense infllammatory reaction and the friable/ probable radiation induced changes in the remaining small intestine, and desmoplastic reaction from multiple surgeries , make any further attempt at surgical intervention doomed to failure. I have spoken multiple times to the patient about all of this, and stressed that for him to survive this problem will require extraordinary cooperation on his part. This is really a tragic case. I have no problem with Psych evaluation and hope it can help this patient.
[2020-02-02 08:08] LABS: Alanine Aminotransferase 48 units/L (7-56); Albumin 2.4 g/dL (3.9-5); Blood Urea Nitrogen 17 mg/dL (9-20); Calcium 8.1 mg/dL (8.4-10.2); Hemolysis Index 5
[2020-02-02 08:11] LABS: BUN/Creatinine Ratio 34
--- NOTE | 2020-02-02 08:50 | Consultation ---
History of Present Illness - Reason for Consult Consult date: 02/02/20 Reason for consult: MHE Requesting physician: YASSINE DAILEY - Chief Complaint Chief complaint: Abdominal pain nausea and vomiting for 2 days - History of Present Psychiatric Illness Per ED Provider: Patient is a 39-year-old F [place]ian male with a past medical history of right-sided nephrectomy status post Wilms tumor and appendectomy both of which occurred in the late 80s who is presenting with abdominal pain. Patient states for the past 2 days he has had some abdominal distention in the right lower quadrant and crampy 10 out of 10 pain. He has had multiple episodes of nausea and vomiting. He prefers to be on his knees hunched over in a ball. Denies fever chills cough cold or congestion. Patient stated he had a small bowel movement earlier today. States there was no blood in the stool. PSYCH HPI Patient is a 40-year-old, single with 2 children, currently unemployed no disability income, -[place] male who resides with family who was admitted to the hospital over a month ago due to intra-abdominal pathological processes which includes small bowel obstruction with psych consult today placed for evaluation of depression associated with chronic conditions. Patient is alert oriented to time place and does not exhibit any signs of delirium at the time his evaluation was conducted which was pertinent due to the fact that patient has been in the hospital for over 30 days. Patient reported that he is apprised to call psychiatrist today just because he had gotten angry and loud the other day, patient says for the past 28 days he has been putting up with his own "shit", reports spending most of the time in bed sitting in his own "shit" a nd taking a longer time for the nurses to come and clean him up and care for him and on the and , he could not take it no more hence why he became loud angry, and now that he did that, they are sending a psychiatrist to see him. Patient reported he is not crazy, not hearing voices or seeing things, not depressed not suicidal not homicidal, he just wants to be heard and cared for in a professional manner PAST PSYCHIATRIC HISTORY Diagnoses: none reported Suicide attempts or Self-harm behavior: none reported Prior psychiatric hospitalizations: none reported Substance Abuse history: none reported Previous psychiatric medications tried: none reported Outpatient treatment: none reported PAST MEDICAL HISTORY: Small bowel obstruction Family Psychiatric History: None reported or documented SOCIAL HISTORY Marital Status: Single Living Arrangements: with family Employment Status: Unemployed Access to guns/weapons: None reported Education: GED History of Abuse: None reported Legal History: None reported REVIEW OF SYSTEMS Positive for abdominal pain, constipation and digestive issues constitutional: Positive for weight loss ENT: Negative for stridor Respiratory: Negative for cough or hemoptysis All other systems reviewed and are negative MENTAL STATUS EXAMINATION General Appearance and Behavior: Age appropriate, good hygiene, wearing appropriate clothes, good eye contact, cooperative polite with questioning. Cooperation: Participating/engaged Psychomotor Behavior: unremarkable and within normal limits Mood: Good Affect and affective range: congruent with mood Thought Process: Fluent/Logical, Thought Content: Within reality, Speech: Normal volume, Regular rate and rhythm, Intellectual Functioning: Average Suicidal Ideation: Denies SI Homicidal Ideation: Denies HI Impulse Control: Unimpaired Insight and Judgment: Normal insight and judgment, Memory: Normal, Attention: Normal, Orientation: Alert, oriented, Assessment and Plan - Psychiatric problem (1) Behavior concern in adult Current Visit: Yes Status: Acute Treatment Plan MEDICATIONS: No acute psychiatric medication medicated at this time Risks, benefits and alternatives of medications discussed with the patient, questions answered and consent obtained from patient. PSYCHOTHERAPY: Supportive psychotherapy provided MEDICAL: Per primary team DELIRIUM PRECAUTIONS: Please re-orient patient frequently, keep lights on during the day, and minimize benzodiazepines and opiates as these medications could worsen patient's confusion. FRUIT OR NUT PICKER: DISPOSITION:Do Not Recommend acute inpatient psychiatric hospitalization at this time LEGAL STATUS: Voluntary FOLLOW-UP: Will sign off Thank you for the consult. Please contact with any questions and/or concerns. Medications and Allergies Allergies Allergy/AdvReac Type Severity Reaction Status Date / Time No Known Allergies Allergy Unverified 12/27/19 11:57 Home Medications Medication Instructions Recorded Confirmed Last Taken Type No Known Home Medications [No 01/09/20 01/09/20 Unknown History Reported Home Medications] Active Meds: Active Medications Acetaminophen (Tylenol) 650 mg PO Q6H PRN PRN Reason: Fever >101 Last Admin: 02/02/20 02:53 Dose: 650 mg Documented by: Hydrocodone Bitart/Acetaminophen (Hydrocodone/Apap 7.5-325) 7.5 mg PO Q6HR PRN PRN Reason: Pain, Moderate (4-6) Last Admin: 01/30/20 11:58 Dose: 7.5 mg Documented by: Hydromorphone HCl (Dilaudid) 1 mg IV Q4H PRN PRN Reason: Pain , Severe (7-10) Last Admin: 02/02/20 06:38 Dose: 1 mg Documented by: Fat Emulsion Intravenous (Intralipid 20%) 250 mls @ 21 mls/hr IV DAILY@1999 [facility] Stop: 01/29/20 07:59 Last Admin: 01/28/20 20:10 Dose: 21 mls/hr Documented by: Amino Acids/Electrolytes/Dextrose (Tpn Adult) 3,000 mls @ 0 mls/hr IV DAILY@1999 [facility]; Protocol Stop: 01/29/20 08:00 Last Admin: 01/28/20 20:08 Dose: 275 mls/hr Documented by: Levofloxacin/Dextrose (Levaquin 750mg/150ml) 750 mg in 150 mls @ 100 mls/hr IV Q24HR [facility]; Protocol Last Admin: 02/01/20 10:32 Dose: 100 mls/hr Documented by: Metronidazole (Flagyl 500 Mg/100 Ml) 500 mg in 100 mls @ 100 mls/hr IV Q8HR [facility]; Protocol Last Admin: 02/02/20 06:13 Dose: 100 mls/hr Documented by: Lorazepam (Ativan) 1 mg IV Q4H PRN PRN Reason: Anxiety Last Admin: 02/02/20 02:56 Dose: 1 mg Documented by: Metoclopramide HCl (Reglan) 10 mg IV Q6H PRN PRN Reason: Nausea And Vomiting Last Admin: 01/21/20 21:52 Dose: 10 mg Documented by: Nicotine (Habitrol) 21 mg TD QDAY [facility] Last Admin: 02/01/20 10:31 Dose: 21 mg Documented by: Ondansetron HCl (Zofran) 4 mg IV Q8H PRN PRN Reason: Nausea And Vomiting Last Admin: 02/01/20 14:48 Dose: 4 mg Documented by: Pantoprazole Sodium (Protonix) 40 mg IV QDAY [facility] Last Admin: 02/01/20 10:31 Dose: 40 mg Documented by: Sodium Chloride (Sodium Chloride Flush Syringe 10 Ml) 10 ml IV BID [facility] Last Admin: 02/01/20 22:03 Dose: 10 ml Documented by: Mental Status Exam - Vital signs Last Vital Signs Temp 99.9 F H 02/02/20 07:51 Pulse 126 H 02/02/20 07:51 Resp 18 02/02/20 07:51 BP 93/49 02/02/20 07:51 Pulse Ox 99 02/02/20 07:51 Results Result Diagrams: 02/01/20 06:03 02/02/20 06:43 Abnormal lab results 01/31/20 02/02/20 Range/Units 06:19 06:43 Sodium 134 L (137-145) mmol/L Creatinine 0.5 L (0.8-1.3) mg/dL Glucose 67 L (75-100) mg/dL Calcium 8.1 L (8.4-10.2) mg/dL Alkaline Phosphatase 149 H (35-129) units/L Total Protein 5.4 L (6.3-8.2) g/dL Albumin 2.4 L (3.9-5) g/dL Crossmatch See Detail All other labs normal. Assessment and Plan - Psychiatric problem (1) Behavior concern in adult Current Visit: Yes Status: Acute
[2020-02-02] MEDS ORDERED: SODIUM CHLORIDE 0.9% 1000 ML 1,000 ML IV SCH (09:15)
--- NOTE | 2020-02-02 10:08 | XRay Report ---
CHEST 1 VIEW INDICATION / CLINICAL INFORMATION: respiratory failure. COMPARISON: 01/01/2020 FINDINGS: SUPPORT DEVICES: Interval placement of right-sided chest port with tip at the right atrium. HEART / MEDIASTINUM: Stable. LUNGS / PLEURA: No significant pulmonary or pleural abnormality. No pneumothorax. ADDITIONAL FINDINGS: No significant additional findings. IMPRESSION: 1. No acute cardiopulmonary process. Signer Name: Torres Power MD Signed: 02/02/2020 10:03 AM Workstation Name: [id number]
[2020-02-02] MEDS: PANTOPRAZOLE 40 MG INJ IV SCH (11:21)
[2020-02-02] MEDS: NICOTINE 21 MG/24 HR PATCH TD SCH (11:21)
[2020-02-02] MEDS ORDERED: DEXTROSE 50% IN WATER (25GM) 50 ML SYRINGE IV PRN (11:24)
--- NOTE | 2020-02-02 11:31 | Progress Note ---
Assessment and Plan Assessment and plan: Patient is a 39-year-old F Cypriot male with a past medical history of right- sided nephrectomy status post Wilms tumor and appendectomy both of which occurred in the late 80s who is presenting with abdominal pain. Patient states for the past 2 days he has had some abdominal distention in the right lower quadrant and crampy 10 out of 10 pain. He has had multiple episodes of nausea and vomiting. Denies fever chills cough cold or congestion. On December 30, [address] showed patient to have free air in colon. Surgical intervention was required. Patient had surgery had partial hemicolectomy during exploratory laparotomy was subsequently intubated and transferred to the intensive care unit. On December 31, 2019 patient returned to the OR for an additional surgery. After initial extubation. Patient was not follow commands agitated unable to really protect airways and therefore was reintubated. -- Nausea/vomiting likely from narcotics induced, limit use of narcotic, reglan as needed Ct abd/pelvis showed no obstruction, distended stomach General surgery recommended to stop all narcotics, strict n.p.o. except ice chips -- Small bowel obstruction Status post exploratory lap x3. per surgery note: Some ischemic bowel, S/P Hemicolectomy, Fistula washed out. CT abdomen and pelvis shows intraperitoneal fluid collection. Now s/p CT-guided paracentesis. Culture negative Monitor vital signs and labs. ID on board. Patient treated with ceftriaxone, Flagyl and fluconazole for p ossible intra-abdominal infection. Cultures negative so far. -- Dehydration: Resolved Patient well-hydrated Continue IV hydration --Acute Metabolic Encephalopathy with subsequent acute respiratory failure Resolved -- Metabolic acidosis Resolved -- ANEMIA of CD Continue to monitor hemoglobin Iron supplements -- Thrombocythemia Initially had thrombocytopenia and there was a concern for HIT blood test was negative Now has been thrombocythemia with platelet count up to 900s. This is likely reactive. Hematology oncology recommendations appreciated -- Severe protein calorie malnutrition cachexia January 25, 2020 I spoke to surgery myself plan is not to have the patient be on TPN forever. Plan will be to readdress the ostomy site. Allow TPN to let the bowel heal. Because patient had ischemic bowel. There was also plans to transfer patient to outpatient TPN clinic at [place]. Plan for anastomotic correction Sunday January 26, 2020 patient up walking around with physical therapy. Pain is better. Having problems at the ostomy site. States difficult to keep from draining and pulls off ostomy to Plan keshia to have revision done on possibly Tuesday. January 27, 2020. Patient in good spirits no bowel movement discussed plan with myself and Dr. Vick. Plan for revision of ostomy site potentially on Tuesday. January 28, 2020 no new changes in the p.m. chemical burn from bile at ostomy site. Requiring increased pain medications. No longer dehydrated no longer encephalopathic. 01/28: Awaiting change in ostomy site due to leaking. Continue supportive care and pain control. Discussed risk with pain meds extensively 01/29: No new complaints today except for pain which was adjusted and addressed by the surgeon 01/30: Patient was seen and evaluated this morning is going for ostomy revision today. Review of post surgical note indicates Pre-op diagnosis: necrotic jejunostomy, fascial dehiscience Post-op diagnosis: other (remaining bowel very friable.) Findings: , necrotics stoma of end jejunostomy. mucous fistula needed revision as well. all remaining bowel viable. fascial dehiscience. Procedure: Exploratory laparotomy, adhesiolysis, revision of jejunostomy /stoma, revision of mucous fistula, relocation of end jejunostomy, Anesthesia: GETA We will continue to monitor check labs in a.m. to ensure no insensible loss of electrolytes. Continue pain control. Case management for discharge planning when okay with surgeon. Patient continues on TPN at this time. 01/31: Continue supportive care. Will obtain Psych consultation for possible depression from prolonged hospitalization. Monitor developing leukocytosis. plan discussed with patient and patients sister 02/01: Per Surgery, Yudelka noted, ... no further role for surgical intervention for several months, since with the intense infllammatory reaction and the friable/ probable radiation induced changes in the remaining small intestine, and desmoplastic reaction from multiple surgeries , again reinforced not to pull on ostomy appliance as this results in worsening skin damage. Noted hypoglycemia: Will add PRN dextros. - Patient Problems (1) Small bowel obstruction Current Visit: Yes Status: Deleted Plan to address problem: Status post surgery. 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 Patient is status post surgical intervention. Patient tolerated procedure well. Patient's abdominal pain has essentially resolved. Now 1 the complications is short bowel syndrome. Patient only had 4 feet of some mild bile left. This is not enough for immediate adequate absorption. Patient curr ently on TPN. Scheduled to have a reanastomosis of ostomy site on Tuesday or . Plan for patient to have TPN for approximately 4 to 6 months until bowel is able to heal. At that time patient will require another's procedure which is highly complicated and attempts to extend the amount of patient is bile and create better reabsorption. Even when this is complete I do not see patient improved enough to return to a viable occupation. Patient will endure chronic malnutrition with limited endurance and fatigue and potential electrolyte abnormalities that were now lateral patient in my opinion to ever gain adequate employment. Patient will be limited by his nutritional status as well as pain requirements. It is my opinion the patient would not be to adequately perform any job functions. Patient has difficulty now with ADLs and requires assistance with most ADLs. (2) Dehydration Current Visit: Yes Status: Resolved Plan to address problem: Resolved. Patient at risk for dehydration secondary to short bowel syndrome. (3) Wound dehiscence/ Colostomy (4) Metabolic acidosis Current Visit: Yes Status: Acute Plan to address problem: Has improved from 4.6-3. Post surgery. (5) Depression: Related to the medical condition. (6)Insomnia: Trazdone at night (7) DVT prophylaxis Current Visit: Yes Status: Deleted Plan to address problem: Anticoagulation being held secondary to surgery and risk of bleeding. History Interval history: Patient seen and examined, Still complaining of Pain Hospitalist Physical - Physical exam Narrative exam: General appearance: Present: no acute distress, cachectic, marked temporal wasting - EENT Eyes: PERRL, EOM intact ENT: hearing intact, clear oral mucosa, dentition normal - Respiratory Respiratory effort: normal Respiratory: bilateral: CTA Extremities: pulses intact, No edema, normal color, Full ROM - Gastrointestinal General gastrointestinal: Present: soft, tender, hypoactive bowel sounds, wound dehiscence other, packing in place (Colostomy site excoriations to the left, although noted retraction. Right intact. Hypoactive bowel sounds. Tender to deep palpation.) - Integumentary Integumentary: erythema - Musculoskeletal Musculoskeletal: generalized weakness - Neurologic Neurologic: CNII-XII intact, focal deficits, moves all extremities - Psychiatric Psychiatric: angry, upset, intact judgment & insight, memory intact, cooperative - Constitutional Vitals: Temp Pulse Resp BP Pulse Ox 99 F 111 H 18 99/60 97 02/02/20 10:55 02/02/20 10:52 02/02/20 10:55 02/02/20 10:52 02/02/20 10:52 General appearance: Present: no acute distress, cachectic Results - Labs CBC & Chem 7: 02/01/20 06:03 02/02/20 06:43 Labs: Laboratory Last Values WBC 13.1 K/mm3 (4.5-11.0) H 02/01/20 06:03 RBC 3.79 M/mm3 (3.65-5.03) 02/01/20 06:03 Hgb 11.0 gm/dl (11.8-15.2) L 02/01/20 06:03 Hgb Comment See scanned result 01/12/20 06:15 Hct 33.6 % (35.5-45.6) L 02/01/20 06:03 MCV 89 fl (84-94) 02/01/20 06:03 MCH 29 pg (28-32) 02/01/20 06:03 MCHC 33 % (32-34) 02/01/20 06:03 RDW 15.6 % (13.2-15.2) H 02/01/20 06:03 Plt Count 313 K/mm3 (140-440) 02/01/20 06:03 Lymph % (Auto) 13.2 % (13.4-35.0) L 01/25/20 07:54 Talbot % (Auto) 9.1 % (0.0-7.3) H 01/25/20 07:54 Eos % (Auto) 1.3 % (0.0-4.3) 01/25/20 07:54 Baso % (Auto) 0.2 % (0.0-1.8) 01/25/20 07:54 Lymph # (Auto) 1.2 K/mm3 (1.2-5.4) 01/25/20 07:54 Talbot # (Auto) 0.8 K/mm3 (0.0-0.8) 01/25/20 07:54 Eos # (Auto) 0.1 K/mm3 (0.0-0.4) 01/25/20 07:54 Baso # (Auto) 0.0 K/mm3 (0.0-0.1) 01/25/20 07:54 Add Manual Diff Complete 01/05/20 09:17 Total Counted 100 01/05/20 09:17 Seg Neutrophils % 76.2 % (40.0-70.0) H 01/25/20 07:54 Seg Neuts % (Manual) 97.0 % (40.0-70.0) H 01/05/20 09:17 Band Neutrophils % 0 % 01/05/20 09:17 Lymphocytes % (Manual) 0 % (13.4-35.0) L 01/05/20 09:17 Reactive Lymphs % (Man) 0 % 01/05/20 09:17 Monocytes % (Manual) 2.0 % (0.0-7.3) 01/05/20 09:17 Eosinophils % (Manual) 1.0 % (0.0-4.3) 01/05/20 09:17 Basophils % (Manual) 0 % (0.0-1.8) 01/05/20 09:17 Metamyelocytes % 0 % 01/05/20 09:17 Myelocytes % 0 % 01/05/20 09:17 Promyelocytes % 0 % 01/05/20 09:17 Blast Cells % 0 % 01/05/20 09:17 Nucleated RBC % Not Reportable 01/05/20 09:17 Seg Neutrophils # 6.8 K/mm3 (1.8-7.7) 01/25/20 07:54 Seg Neutrophils # Man 11.7 K/mm3 (1.8-7.7) H 01/05/20 09:17 Band Neutrophils # 0.0 K/mm3 01/05/20 09:17 Lymphocytes # (Manual) 0.0 K/mm3 (1.2-5.4) L 01/05/20 09:17 Abs React Lymphs (Man) 0.0 K/mm3 01/05/20 09:17 Monocytes # (Manual) 0.2 K/mm3 (0.0-0.8) 01/05/20 09:17 Eosinophils # (Manual) 0.1 K/mm3 (0.0-0.4) 01/05/20 09:17 Basophils # (Manual) 0.0 K/mm3 (0.0-0.1) 01/05/20 09:17 Metamyelocytes # 0.0 K/mm3 01/05/20 09:17 Myelocytes # 0.0 K/mm3 01/05/20 09:17 Promyelocytes # 0.0 K/mm3 01/05/20 09:17 Blast Cells # 0.0 K/mm3 01/05/20 09:17 WBC Morphology Not Reportable 01/05/20 09:17 Hypersegmented Neuts Not Reportable 01/05/20 09:17 Hyposegmented Neuts Not Reportable 01/05/20 09:17 Hypogranular Neuts Not Reportable 01/05/20 09:17 Smudge Cells Not Reportable 01/05/20 09:17 Toxic Granulation Not Reportable 01/05/20 09:17 Toxic Vacuolation Not Reportable 01/05/20 09:17 Dohle Bodies Not Reportable 01/05/20 09:17 Pelger-Huet Anomaly Not Reportable 01/05/20 09:17 Anuradha Rods Not Reportable 01/05/20 09:17 Platelet Estimate Consistent w auto 01/05/20 09:17 Clumped Platelets Not Reportable 01/05/20 09:17 Plt Clumps, EDTA Not Reportable 01/05/20 09:17 Large Platelets Not Reportable 01/05/20 09:17 Giant Platelets Not Reportable 01/05/20 09:17 Platelet Satelliting Not Reportable 01/05/20 09:17 Plt Morphology Comment Not Reportable 01/05/20 09:17 RBC Morphology Not Reportable 01/05/20 09:17 Dimorphic RBCs Not Reportable 01/05/20 09:17 Polychromasia Not Reportable 01/05/20 09:17 Hypochromasia Not Reportable 01/05/20 09:17 Poikilocytosis Not Reportable 01/05/20 09:17 Anisocytosis Few 01/05/20 09:17 Microcytosis Not Reportable 01/05/20 09:17 Macrocytosis Not Reportable 01/05/20 09:17 Spherocytes Not Reportable 01/05/20 09:17 Pappenheimer Bodies Not Reportable 01/05/20 09:17 Sickle Cells Not Reportable 01/05/20 09:17 Target Cells 1+ 01/05/20 09:17 Tear Drop Cells Not Reportable 01/05/20 09:17 Ovalocytes Not Reportable 01/05/20 09:17 Helmet Cells Not Reportable 01/05/20 09:17 Aleman-Marydel Bodies Not Reportable 01/05/20 09:17 [place] Rings Not Reportable 01/05/20 09:17 Kaylie Cells Not Reportable 01/05/20 09:17 Bite Cells Not Reportable 01/05/20 09:17 Crenated Cell Not Reportable 01/05/20 09:17 Elliptocytes Not Reportable 01/05/20 09:17 Acanthocytes (Spur) Not Reportable 01/05/20 09:17 Rouleaux Not Reportable 01/05/20 09:17 Hemoglobin C Crystals Not Reportable 01/05/20 09:17 Schistocytes Not Reportable 01/05/20 09:17 Malaria parasites Not Reportable 01/05/20 09:17 Sickle Cell Solubility See scanned result 01/12/20 06:15 Hemoglobin A See scanned result 01/12/20 06:15 Hemoglobin A2 See scanned result 01/12/20 06:15 Hemoglobin A2 Prime See scanned result 01/12/20 06:15 Hemoglobin C See scanned result 01/12/20 06:15 Hemoglobin D See scanned result 01/12/20 06:15 Hemoglobin E See scanned result 01/12/20 06:15 Hgb F Diffential Stain See scanned result 01/12/20 06:15 Hemoglobin F Quant See scanned result 01/12/20 06:15 Hemoglobin G See scanned result 01/12/20 06:15 Hemoglobin S See scanned result 01/12/20 06:15 Hemoglobin [place] See scanned result 01/12/20 06:15 Hemoglobin [place] See scanned result 01/12/20 06:15 Hemoglobin Prema See scanned result 01/12/20 06:15 Variant Hemoglobin See scanned result 01/12/20 06:15 Abnorm Hgb IEF Confirm See scanned result 01/12/20 06:15 Hemoglobin Interpret See scanned result 01/12/20 06:15 Hemoglobinopathy Note See scanned result 01/12/20 06:15 Christ Bodies Not Reportable 01/05/20 09:17 Hem Pathologist Commnt No 01/05/20 09:17 PT 14.8 Sec. (12.2-14.9) 01/08/20 19:18 INR 1.14 (0.87-1.13) H 01/08/20 19:18 APTT 42.2 Sec. (24.2-36.6) H 12/30/19 22:30 Heparin Anti-Xa, Unfract Negative (Negative) 01/03/20 11:08 ABG pH 7.456 pH Units (7.350-7.450) H 01/01/20 05:15 POC ABG pCO2 34.7 mmHg (32.0-48.0) 12/31/19 04:03 ABG pCO2 34.1 mm Hg 01/01/20 05:15 POC ABG pO2 95.1 mmHg (83-108) 12/31/19 04:03 ABG pO2 85.3 mm Hg (80.0-90.0) 01/01/20 05:15 POC ABG HCO3 20.2 12/31/19 04:03 ABG HCO3 23.5 mmol/L (20.0-26.0) 01/01/20 05:15 ABG O2 Saturation 97.1 % (95.0-99.0) 01/01/20 05:15 ABG O2 Content 9.4 (0.0-44) 01/01/20 05:15 POC ABG Base Excess -4.2 12/31/19 04:03 ABG Base Excess -0.3 mmol/L (-2.0-3.0) 01/01/20 05:15 ABG Hemoglobin 6.9 gm/dl (14.0-18.0) L 01/01/20 05:15 ABG Carboxyhemoglobin 1.4 % (0.0-5.0) 01/01/20 05:15 ABG Methemoglobin 0.7 % (0.0-1.5) 01/01/20 05:15 Oxyhemoglobin 95.0 % (95.0-99.0) 01/01/20 05:15 FiO2 35 % 01/01/20 05:15 Sodium 134 mmol/L (137-145) L 02/02/20 06:43 Potassium 4.3 mmol/L (3.6-5.0) 02/02/20 06:43 Chloride 99.7 mmol/L (98-107) 02/02/20 06:43 Carbon Dioxide 27 mmol/L (22-30) 02/02/20 06:43 Anion Gap 12 mmol/L 02/02/20 06:43 BUN 17 mg/dL (9-20) 02/02/20 06:43 Creatinine 0.5 mg/dL (0.8-1.3) L 02/02/20 06:43 Estimated GFR > 60 ml/min 02/02/20 06:43 BUN/Creatinine Ratio 34 % 02/02/20 06:43 Glucose 67 mg/dL (75-100) L 02/02/20 06:43 POC Glucose 77 mg/dL (70-105) 02/02/20 06:16 Lactic Acid 1.00 mmol/L (0.7-2.0) 01/05/20 06:35 Calcium 8.1 mg/dL (8.4-10.2) L 02/02/20 06:43 Phosphorus 3.10 mg/dL (2.5-4.5) 02/02/20 06:43 Magnesium 2.10 mg/dL (1.7-2.3) 01/28/20 07:15 Iron 21 ug/dL (49-181) L 01/13/20 05:00 TIBC 179 mcg/dL (250-450) L 01/13/20 05:00 Total Bilirubin 0.80 mg/dL (0.1-1.2) 02/02/20 06:43 Direct Bilirubin 1.3 mg/dL (0-0.2) H 01/08/20 08:30 Indirect Bilirubin 1.0 mg/dL 01/08/20 08:30 AST 20 units/L (5-40) 02/02/20 06:43 ALT 48 units/L (7-56) 02/02/20 06:43 Alkaline Phosphatase 149 units/L (35-129) H 02/02/20 06:43 Total Protein 5.4 g/dL (6.3-8.2) L 02/02/20 06:43 Albumin 2.4 g/dL (3.9-5) L 02/02/20 06:43 Albumin/Globulin Ratio 0.8 % 02/02/20 06:43 Triglycerides 72 mg/dL (2-149) 01/25/20 07:54 Lipase 9 units/L (13-60) L 12/29/19 14:29 Serotonin Release Assay See scanned result 01/03/20 11:08 Urine Color Yellow (Yellow) 12/27/19 Unknown Urine Turbidity Clear (Clear) 12/27/19 Unknown Urine pH 5.0 (5.0-7.0) 12/27/19 Unknown Ur Specific Moody > 1.059 (1.003-1.030) H 12/27/19 Unknown Urine Protein 30 mg/dl mg/dL (Negative) 12/27/19 Unknown Urine Glucose (UA) Neg mg/dL (Negative) 12/27/19 Unknown Urine Ketones 20 mg/dL (Negative) 12/27/19 Unknown Urine Blood Mod (Negative) 12/27/19 Unknown Urine Nitrite Neg (Negative) 12/27/19 Unknown Urine Bilirubin Neg (Negative) 12/27/19 Unknown Urine Urobilinogen < 2.0 mg/dL (<2.0) 12/27/19 Unknown Ur Leukocyte Esterase Neg (Negative) 12/27/19 Unknown Urine WBC (Auto) 2.0 /HPF (0.0-6.0) 12/27/19 Unknown Urine RBC (Auto) 28.0 /HPF (0.0-6.0) 12/27/19 Unknown U Epithel Cells (Auto) < 1.0 /HPF (0-13.0) 12/27/19 Unknown Urine Mucus 3+ /HPF 12/27/19 Unknown Fluid Type Paracentesis 01/09/20 Unknown Fluid Color Fauzia 01/09/20 Unknown Fluid Appearance Turbid 01/09/20 Unknown Fluid WBC 3225 /mm3 01/09/20 Unknown Fluid RBC 325 /mm3 01/09/20 Unknown Fluid Seg Neutrophils 87.0 % 01/09/20 Unknown Fluid Lymphocytes 10.0 % 01/09/20 Unknown Fluid Reactive Lymphs 0 % 01/09/20 Unknown Fluid Monocytes 3.0 % 01/09/20 Unknown Fluid Eosinophils 0 % 01/09/20 Unknown Fluid Basophils 0 % 01/09/20 Unknown Heparin-induced Plt Ab Negative (Negative) 01/03/20 11:08 UF Heparin High Dose 4 % Release 01/03/20 11:08 SU UFH Low Dose 0.1 9 % Release 01/03/20 11:08 SU UFH Low Dose 0.5 4 % Release 01/03/20 11:08 Blood Type B POSITIVE 01/31/20 06:19 Antibody Screen Negative 01/31/20 06:19 Crossmatch See Detail 01/31/20 06:19 Azul/IV: Voiding Method Urinal IV Catheter Type [Left Forearm INT / Saline Lock ] IV Catheter Type [Right Chest] IVAD / Port IV Catheter Type [Left Hand] INT / Saline Lock IV Catheter Type [Left Wrist] Peripheral IV IV Catheter Type [Right Peripheral IV Forearm] IV Catheter Type [Right Upper PICC Line arm] IV Catheter Type [Right INT / Saline Lock Antecubital] Active Medications - Current Medications Current Medications: Generic Name Dose Route Start Last Admin Trade Name Freq PRN Reason Stop Dose Admin Acetaminophen 650 mg 02/02/20 02:50 02/02/20 02:53 Tylenol PO 650 mg Q6H PRN Administration Fever >101 Hydrocodone Bitart/Acetaminophen 7.5 mg 01/20/20 10:00 01/30/20 11:58 Hydrocodone/Apap 7.5-325 PO 7.5 mg Q6HR PRN Administration Pain, Moderate (4-6) Dextrose 50 ml 02/02/20 11:24 D50w (25gm) Syringe IV Q30MIN PRN Hypoglycemia Protocol Hydromorphone HCl 1 mg 01/31/20 14:38 02/02/20 11:20 Dilaudid IV 1 mg Q4H PRN Administration Pain , Severe (7-10) Fat Emulsion Intravenous 250 mls @ 21 mls/hr 01/28/20 20:00 01/28/20 20:10 Intralipid 20% IV 01/29/20 07:59 21 mls/hr [email or web address] SUSAN Administration Amino Acids/Electrolytes/Dextrose 3,000 mls @ 0 mls/hr 01/28/20 20:00 01/28/20 20:08 Tpn Adult IV 01/29/20 08:00 275 mls/hr [email or web address] SUSAN Administration Protocol As Directed Levofloxacin/Dextrose 750 mg in 150 mls @ 100 mls/hr 02/01/20 11:00 02/02/20 11:21 Levaquin 750mg/150ml IV 100 mls/hr Q24HR SUSAN Administration Protocol Metronidazole 500 mg in 100 mls @ 100 mls/hr 02/02/20 06:00 02/02/20 06:13 Flagyl 500 Mg/100 Ml IV 100 mls/hr Q8HR SUSAN Administration Protocol Amino Acids/Electrolytes/Dextrose 3,000 mls @ 0 mls/hr 02/02/20 20:00 Tpn Adult IV 02/03/20 08:01 [email or web address] [facility] Protocol As Directed Lorazepam 1 mg 01/31/20 16:00 02/02/20 02:56 Ativan IV 1 mg Q4H PRN Administration Anxiety Metoclopramide HCl 10 mg 01/20/20 10:00 01/21/20 21:52 Reglan IV 10 mg Q6H PRN Administration Nausea And Vomiting Nicotine 21 mg 12/31/19 10:00 02/02/20 11:21 Habitrol TD 21 mg QDAY SUSAN Administration Ondansetron HCl 4 mg 01/31/20 16:00 02/01/20 14:48 Zofran IV 4 mg Q8H PRN Administration Nausea And Vomiting Pantoprazole Sodium 40 mg 01/17/20 10:00 02/02/20 11:21 Protonix IV 40 mg QDAY SUSAN Administration Sodium Chloride 10 ml 12/28/19 10:00 02/01/20 22:03 Sodium Chloride Flush Syringe 10 Ml IV 10 ml BID SUSAN Administration Nutrition/Malnutrition Assess - Dietary Evaluation Nutrition/Malnutrition Findings: Nutrition Notes Start: 12/30/19 08:57 Freq: Status: Active Protocol: Document 02/01/20 11:52 LP (Rec: 02/01/20 12:01 LP [id number]) Nutrition Notes Initial or Follow up Reassessment Current Diagnosis Malnutrition Other Pertinent Diagnosis short gut syndrome s/p hemicolectomy, R nephrectomy, anemia Current Diet 12h Cyclic CPN at 125/275/ 125ml/hr Labs/Tests Reviewed Pertinent Medications Reviewed Height 5 ft 8 in Weight 62.5 [address] [place] Body Weight (kg) 70.00 BMI 20.9 Weight Status Appropriate Subjective/Other Information 12 hour cyclic CPN day 32. Had revision of muscous fistula and relocation of end jejunostomy. Percent of energy/protein needs met: 89%/100% Burn Absent Trauma Absent GI Symptoms None Current % PO Negligible Minimum of two criteria Yes Body Fat Depletion Mild depletion (non-severe) Muscle Mass Mild Depletion (non-severe) Reduced Jig Builder Helper Strength Measurably Reduced (severe) #3 Nutrition Diagnosis Altered GI function Diagnosis Progress(for reassessment Continues documentation) #2 Nutrition Diagnosis Malnutrition Diagnosis Progress(for reassessment Continues documentation) #1 Nutrition Diagnosis Inadequate oral intake Diagnosis Progress(for reassessment Continues documentation) Is patient on ventilator? No Is Patient Ambulatory and/or Out of Bed Yes REE-([facility]-ambulatory/OOB) [ [id number] [id number]] Calculation Used for Recommendations [facility] Additional Notes Protein needs 78-94g (1.25-1. 5g/kg) Fluid needs 1ml/kcal Nutrition Intervention Change Diet Order: Continue CPN Nutrition Support: Continue 12 hr cyclic CPN at 125/275/125 ml/hr. 40mEq K, 6mEq Ca, MTE (not given yesterday) MVI, lipids. Osmolality 1228. Kcal 2,240 Protein (gm) 95 Carbohydrates (gm) 400 Fat (gm) 50 Fluid (mL) 3,250 Fiber (gm) 0 Goal #1 Meet at least 75% of energy and protein needs via CPN Anticipated Discharge Needs: 12 hour Cyclic TPN Follow-Up By: 02/02/20 Additional Comments Labs in AM: CMP, Phos.
[2020-02-02] MEDS: HYDROcodone/APAP 7.5-325MG-15ML ORAL LIQD PO PRN (19:52)
[2020-02-02] MEDS ORDERED: TOTAL PARENTERAL NUTRITION 3,000 ML IV SCH (20:00)
[2020-02-03] MEDS: HYDROcodone/APAP 7.5-325MG-15ML ORAL LIQD PO PRN ×2 (01:16→15:23)
[2020-02-03] MEDS: HYDROmorphone 1 MG/1 ML INJ IV PRN ×6 (01:19→23:12)
[2020-02-03] MEDS: metroNIDAZOLE/NS 500 MG/100 ML 500 MG/100 ML BAG IV SCH ×3 (05:30→21:49)
[2020-02-03 08:06] LABS: Hematocrit 26.1 % (35.5-45.6); Hemoglobin 8.9 gm/dl (11.8-15.2); Mean Corpuscular HGB Conc 34 % (32-34); Mean Corpuscular Volume 87 fl (84-94); Platelet Count 250 K/mm3 (140-440); Red Blood Count 2.99 M/mm3 (3.65-5.03); Red Cell Distribution Width 15.5 % (13.2-15.2)
[2020-02-03 08:07] LABS: Alanine Aminotransferase 36 units/L (7-56); Albumin 2.2 g/dL (3.9-5); Blood Urea Nitrogen 16 mg/dL (9-20); Calcium 8.1 mg/dL (8.4-10.2); Hemolysis Index 0
[2020-02-03 08:11] LABS: BUN/Creatinine Ratio 40
--- NOTE | 2020-02-03 08:30 | Progress Note ---
Assessment and Plan Assessment and plan: Patient is a 39-year-old F Lao male with a past medical history of right- sided nephrectomy status post Wilms tumor and appendectomy both of which occurred in the late 80s who is presenting with abdominal pain. Patient states for the past 2 days he has had some abdominal distention in the right lower quadrant and crampy 10 out of 10 pain. He has had multiple episodes of nausea and vomiting. Denies fever chills cough cold or congestion. On December 30, [address] showed patient to have free air in colon. Surgical intervention was required. Patient had surgery had partial hemicolectomy during exploratory laparotomy was subsequently intubated and transferred to the intensive care unit. On December 31, 2019 patient returned to the OR for an additional surgery. After initial extubation. Patient was not follow commands agitated unable to really protect airways and therefore was reintubated. -- Nausea/vomiting likely from narcotics induced, limit use of narcotic, reglan as needed Ct abd/pelvis showed no obstruction, distended stomach General surgery recommended to stop all narcotics, strict n.p.o. except ice chips -- Small bowel obstruction Status post exploratory lap x3. per surgery note: Some ischemic bowel, S/P Hemicolectomy, Fistula washed out. CT abdomen and pelvis shows intraperitoneal fluid collection. Now s/p CT-guided paracentesis. Culture negative Monitor vital signs and labs. ID on board. Patient treated with ceftriaxone, Flagyl and fluconazole for p ossible intra-abdominal infection. Cultures negative so far. Status post surgery. 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 Patient is status post surgical intervention. Patient tolerated procedure well. Patient's abdominal pain has essentially resolved. Now 1 the complications is short bowel syndrome. Patient only had 4 feet of some mild bile left. This is not enough for immediate adequate absorption. Patient currently on TPN. Scheduled to have a reanastomosis of ostomy site on Tuesday or . Plan for patient to have TPN for approximately 4 to 6 months until bowel is able to heal. At that time patient will require another's procedure which is highly complicated and attempts to extend the amount of patient is bile and create better reabsorption. Even when this is complete I do not see patient improved enough to return to a viable occupation. Patient will endure chronic malnutrition with limited endurance and fatigue and potential electrolyte abn ormalities that were now lateral patient in my opinion to ever gain adequate employment. Patient will be limited by his nutritional status as well as pain requirements. It is my opinion the patient would not be to adequately perform any job functions. Patient has difficulty now with ADLs and requires assistance with most ADLs. -- Dehydration: Resolved Patient well-hydrated Continue IV hydration --Acute Metabolic Encephalopathy with subsequent acute respiratory failure Resolved -- Metabolic acidosis Resolved -- ANEMIA of CD Continue to monitor hemoglobin Iron supplements -- Insomnia --Thrombocythemia Initially had thrombocytopenia and there was a concern for HIT blood test was n egative Now has been thrombocythemia with platelet count up to 900s. This is likely reactive. Hematology oncology recommendations appreciated -- Severe protein calorie malnutrition cachexia : Valet Manager following January 25, 2020 I spoke to surgery myself plan is not to have the patient be on TPN forever. Plan will be to readdress the ostomy site. Allow TPN to let the bowel heal. Because patient had ischemic bowel. There was also plans to transfer patient to outpatient TPN clinic at [place]. Plan for anastomotic correction Sunday January 26, 2020 patient up walking around with physical therapy. Pain is better. Having problems at the ostomy site. States difficult to keep from ining and pulls off ostomy to Plan keshia to have revision done on possibly Tuesday. January 27, 2020. Patient in good spirits no bowel movement discussed plan with myself and Dr. Vick. Plan for revision of ostomy site potentially on Tuesday. January 28, 2020 no new changes in the p.m. chemical burn from bile at ostomy site. Requiring increased pain medications. No longer dehydrated no longer encephalopathic. 01/28: Awaiting change in ostomy site due to leaking. Continue supportive care and pain control. Discussed risk with pain meds extensively 01/29: No new complaints today except for pain which was adjusted and addressed by the surgeon 01/30: Patient was seen and evaluated this morning is going for ostomy revision today. Review of post surgical note indicates Pre-op diagnosis: necrotic jejunostomy, fascial dehiscience Post-op diagnosis: other (remaining bowel very friable.) Findings: , necrotics stoma of end jejunostomy. mucous fistula needed revision as well. all remaining bowel viable. fascial dehiscience. Procedure: Exploratory laparotomy, adhesiolysis, revision of jejunostomy /stoma, revision of mucous fistula, relocation of end jejunostomy, Anesthesia: GETA We will continue to monitor check labs in a.m. to ensure no insensible loss of electrolytes. Continue pain control. Case management for discharge planning when okay with surgeon. Patient continues on TPN at this time. 01/31: Continue supportive care. Will obtain Psych consultation for possible depression from prolonged hospitalization. Monitor developing leukocytosis. plan discussed with patient and patients sister 02/01: Per Surgery, Flagyl noted, ... no further role for surgical intervention for several months, since with the intense infllammatory reaction and the friable/ probable radiation induced changes in the remaining small intestine, and desmoplastic reaction from multiple surgeries , again reinforced not to pull on ostomy appliance as this results in worsening skin damage. Noted hypoglycemia: Will add PRN dextros. 02/02: Psych input noted, no meds at this time. Continue supportive care, BP improving some. Monitor for recurrent Hypoglycemia. Will continue to replace insensible loss. Discharge planning When ok with surgeon. Case management. History Interval history: Patient seen and examined, Still complaining of Pain, but resting comfortable Hospitalist Physical - Physical exam Narrative exam: General appearance: Present: no acute distress, cachectic, marked temporal wasting - EENT Eyes: PERRL, EOM intact ENT: hearing intact, clear oral mucosa, dentition normal - Respiratory Respiratory effort: normal Respiratory: bilateral: CTA Extremities: pulses intact, No edema, normal color, Full ROM - Gastrointestinal General gastrointestinal: Present: soft, tender, hypoactive bowel sounds, wound dehiscence other, packing in place (Colostomy site excoriations to the left, although noted retraction. Right intact. Hypoactive bowel sounds. Tender to deep palpation.) - Integumentary Integumentary: erythema - Musculoskeletal Musculoskeletal: generalized weakness - Neurologic Neurologic: CNII-XII intact, focal deficits, moves all extremities - Psychiatric Psychiatric: angry, upset, intact judgment & insight, memory intact, cooperative - Constitutional Vitals: Temp Pulse Resp BP Pulse Ox 98.9 F 102 H 18 101/66 97 02/02/20 16:01 02/02/20 16:10 02/02/20 16:01 02/02/20 16:01 02/02/20 16:10 General appearance: Present: no acute distress, cachectic Results - Labs CBC & Chem 7: 02/03/20 04:00 02/03/20 04:00 Labs: Laboratory Last Values WBC 7.8 K/mm3 (4.5-11.0) 02/03/20 04:00 RBC 2.99 M/mm3 (3.65-5.03) L 02/03/20 04:00 Hgb 8.9 gm/dl (11.8-15.2) L 02/03/20 04:00 Hgb Comment See scanned result 01/12/20 06:15 Hct 26.1 % (35.5-45.6) L D 02/03/20 04:00 MCV 87 fl (84-94) 02/03/20 04:00 MCH 30 pg (28-32) 02/03/20 04:00 MCHC 34 % (32-34) 02/03/20 04:00 RDW 15.5 % (13.2-15.2) H 02/03/20 04:00 Plt Count 250 K/mm3 (140-440) 02/03/20 04:00 Lymph % (Auto) 13.2 % (13.4-35.0) L 01/25/20 07:54 Mccracken % (Auto) 9.1 % (0.0-7.3) H 01/25/20 07:54 Eos % (Auto) 1.3 % (0.0-4.3) 01/25/20 07:54 Baso % (Auto) 0.2 % (0.0-1.8) 01/25/20 07:54 Lymph # (Auto) 1.2 K/mm3 (1.2-5.4) 01/25/20 07:54 Mccracken # (Auto) 0.8 K/mm3 (0.0-0.8) 01/25/20 07:54 Eos # (Auto) 0.1 K/mm3 (0.0-0.4) 01/25/20 07:54 Baso # (Auto) 0.0 K/mm3 (0.0-0.1) 01/25/20 07:54 Add Manual Diff Complete 01/05/20 09:17 Total Counted 100 01/05/20 09:17 Seg Neutrophils % 76.2 % (40.0-70.0) H 01/25/20 07:54 Seg Neuts % (Manual) 97.0 % (40.0-70.0) H 01/05/20 09:17 Band Neutrophils % 0 % 01/05/20 09:17 Lymphocytes % (Manual) 0 % (13.4-35.0) L 01/05/20 09:17 Reactive Lymphs % (Man) 0 % 01/05/20 09:17 Monocytes % (Manual) 2.0 % (0.0-7.3) 01/05/20 09:17 Eosinophils % (Manual) 1.0 % (0.0-4.3) 01/05/20 09:17 Basophils % (Manual) 0 % (0.0-1.8) 01/05/20 09:17 Metamyelocytes % 0 % 01/05/20 09:17 Myelocytes % 0 % 01/05/20 09:17 Promyelocytes % 0 % 01/05/20 09:17 Blast Cells % 0 % 01/05/20 09:17 Nucleated RBC % Not Reportable 01/05/20 09:17 Seg Neutrophils # 6.8 K/mm3 (1.8-7.7) 01/25/20 07:54 Seg Neutrophils # Man 11.7 K/mm3 (1.8-7.7) H 01/05/20 09:17 Band Neutrophils # 0.0 K/mm3 01/05/20 09:17 Lymphocytes # (Manual) 0.0 K/mm3 (1.2-5.4) L 01/05/20 09:17 Abs React Lymphs (Man) 0.0 K/mm3 01/05/20 09:17 Monocytes # (Manual) 0.2 K/mm3 (0.0-0.8) 01/05/20 09:17 Eosinophils # (Manual) 0.1 K/mm3 (0.0-0.4) 01/05/20 09:17 Basophils # (Manual) 0.0 K/mm3 (0.0-0.1) 01/05/20 09:17 Metamyelocytes # 0.0 K/mm3 01/05/20 09:17 Myelocytes # 0.0 K/mm3 01/05/20 09:17 Promyelocytes # 0.0 K/mm3 01/05/20 09:17 Blast Cells # 0.0 K/mm3 01/05/20 09:17 WBC Morphology Not Reportable 01/05/20 09:17 Hypersegmented Neuts Not Reportable 01/05/20 09:17 Hyposegmented Neuts Not Reportable 01/05/20 09:17 Hypogranular Neuts Not Reportable 01/05/20 09:17 Smudge Cells Not Reportable 01/05/20 09:17 Toxic Granulation Not Reportable 01/05/20 09:17 Toxic Vacuolation Not Reportable 01/05/20 09:17 Dohle Bodies Not Reportable 01/05/20 09:17 Pelger-Huet Anomaly Not Reportable 01/05/20 09:17 Anuradha Rods Not Reportable 01/05/20 09:17 Platelet Estimate Consistent w auto 01/05/20 09:17 Clumped Platelets Not Reportable 01/05/20 09:17 Plt Clumps, EDTA Not Reportable 01/05/20 09:17 Large Platelets Not Reportable 01/05/20 09:17 Giant Platelets Not Reportable 01/05/20 09:17 Platelet Satelliting Not Reportable 01/05/20 09:17 Plt Morphology Comment Not Reportable 01/05/20 09:17 RBC Morphology Not Reportable 01/05/20 09:17 Dimorphic RBCs Not Reportable 01/05/20 09:17 Polychromasia Not Reportable 01/05/20 09:17 Hypochromasia Not Reportable 01/05/20 09:17 Poikilocytosis Not Reportable 01/05/20 09:17 Anisocytosis Few 01/05/20 09:17 Microcytosis Not Reportable 01/05/20 09:17 Macrocytosis Not Reportable 01/05/20 09:17 Spherocytes Not Reportable 01/05/20 09:17 Pappenheimer Bodies Not Reportable 01/05/20 09:17 Sickle Cells Not Reportable 01/05/20 09:17 Target Cells 1+ 01/05/20 09:17 Tear Drop Cells Not Reportable 01/05/20 09:17 Ovalocytes Not Reportable 01/05/20 09:17 Helmet Cells Not Reportable 01/05/20 09:17 Aleman-Hiram Bodies Not Reportable 01/05/20 09:17 [place] Rings Not Reportable 01/05/20 09:17 Kaylie Cells Not Reportable 01/05/20 09:17 Bite Cells Not Reportable 01/05/20 09:17 Crenated Cell Not Reportable 01/05/20 09:17 Elliptocytes Not Reportable 01/05/20 09:17 Acanthocytes (Spur) Not Reportable 01/05/20 09:17 Rouleaux Not Reportable 01/05/20 09:17 Hemoglobin C Crystals Not Reportable 01/05/20 09:17 Schistocytes Not Reportable 01/05/20 09:17 Malaria parasites Not Reportable 01/05/20 09:17 Sickle Cell Solubility See scanned result 01/12/20 06:15 Hemoglobin A See scanned result 01/12/20 06:15 Hemoglobin A2 See scanned result 01/12/20 06:15 Hemoglobin A2 Prime See scanned result 01/12/20 06:15 Hemoglobin C See scanned result 01/12/20 06:15 Hemoglobin D See scanned result 01/12/20 06:15 Hemoglobin E See scanned result 01/12/20 06:15 Hgb F Diffential Stain See scanned result 01/12/20 06:15 Hemoglobin F Quant See scanned result 01/12/20 06:15 Hemoglobin G See scanned result 01/12/20 06:15 Hemoglobin S See scanned result 01/12/20 06:15 Hemoglobin [place] See scanned result 01/12/20 06:15 Hemoglobin [place] See scanned result 01/12/20 06:15 Hemoglobin Prema See scanned result 01/12/20 06:15 Variant Hemoglobin See scanned result 01/12/20 06:15 Abnorm Hgb IEF Confirm See scanned result 01/12/20 06:15 Hemoglobin Interpret See scanned result 01/12/20 06:15 Hemoglobinopathy Note See scanned result 01/12/20 06:15 Christ Bodies Not Reportable 01/05/20 09:17 Hem Pathologist Commnt No 01/05/20 09:17 PT 14.8 Sec. (12.2-14.9) 01/08/20 19:18 INR 1.14 (0.87-1.13) H 01/08/20 19:18 APTT 42.2 Sec. (24.2-36.6) H 12/30/19 22:30 Heparin Anti-Xa, Unfract Negative (Negative) 01/03/20 11:08 ABG pH 7.456 pH Units (7.350-7.450) H 01/01/20 05:15 POC ABG pCO2 34.7 mmHg (32.0-48.0) 12/31/19 04:03 ABG pCO2 34.1 mm Hg 01/01/20 05:15 POC ABG pO2 95.1 mmHg (83-108) 12/31/19 04:03 ABG pO2 85.3 mm Hg (80.0-90.0) 01/01/20 05:15 POC ABG HCO3 20.2 12/31/19 04:03 ABG HCO3 23.5 mmol/L (20.0-26.0) 01/01/20 05:15 ABG O2 Saturation 97.1 % (95.0-99.0) 01/01/20 05:15 ABG O2 Content 9.4 (0.0-44) 01/01/20 05:15 POC ABG Base Excess -4.2 12/31/19 04:03 ABG Base Excess -0.3 mmol/L (-2.0-3.0) 01/01/20 05:15 ABG Hemoglobin 6.9 gm/dl (14.0-18.0) L 01/01/20 05:15 ABG Carboxyhemoglobin 1.4 % (0.0-5.0) 01/01/20 05:15 ABG Methemoglobin 0.7 % (0.0-1.5) 01/01/20 05:15 Oxyhemoglobin 95.0 % (95.0-99.0) 01/01/20 05:15 FiO2 35 % 01/01/20 05:15 Sodium 137 mmol/L (137-145) 02/03/20 04:00 Potassium 3.8 mmol/L (3.6-5.0) 02/03/20 04:00 Chloride 102.0 mmol/L (98-107) 02/03/20 04:00 Carbon Dioxide 27 mmol/L (22-30) 02/03/20 04:00 Anion Gap 12 mmol/L 02/03/20 04:00 BUN 16 mg/dL (9-20) 02/03/20 04:00 Creatinine 0.4 mg/dL (0.8-1.3) L 02/03/20 04:00 Estimated GFR > 60 ml/min 02/03/20 04:00 BUN/Creatinine Ratio 40 % 02/03/20 04:00 Glucose 118 mg/dL (75-100) H 02/03/20 04:00 POC Glucose 77 mg/dL (70-105) 02/02/20 06:16 Lactic Acid 1.00 mmol/L (0.7-2.0) 01/05/20 06:35 Calcium 8.1 mg/dL (8.4-10.2) L 02/03/20 04:00 Phosphorus 3.90 mg/dL (2.5-4.5) D 02/03/20 04:00 Magnesium 1.70 mg/dL (1.7-2.3) 02/03/20 04:00 Iron 21 ug/dL (49-181) L 01/13/20 05:00 TIBC 179 mcg/dL (250-450) L 01/13/20 05:00 Total Bilirubin 0.80 mg/dL (0.1-1.2) 02/03/20 04:00 Direct Bilirubin 1.3 mg/dL (0-0.2) H 01/08/20 08:30 Indirect Bilirubin 1.0 mg/dL 01/08/20 08:30 AST 17 units/L (5-40) 02/03/20 04:00 ALT 36 units/L (7-56) 02/03/20 04:00 Alkaline Phosphatase 135 units/L (35-129) H 02/03/20 04:00 Total Protein 4.5 g/dL (6.3-8.2) L 02/03/20 04:00 Albumin 2.2 g/dL (3.9-5) L 02/03/20 04:00 Albumin/Globulin Ratio 1.0 % 02/03/20 04:00 Triglycerides 72 mg/dL (2-149) 01/25/20 07:54 Lipase 9 units/L (13-60) L 12/29/19 14:29 Serotonin Release Assay See scanned result 01/03/20 11:08 Urine Color Yellow (Yellow) 12/27/19 Unknown Urine Turbidity Clear (Clear) 12/27/19 Unknown Urine pH 5.0 (5.0-7.0) 12/27/19 Unknown Ur Specific [place] > 1.059 (1.003-1.030) H 12/27/19 Unknown Urine Protein 30 mg/dl mg/dL (Negative) 12/27/19 Unknown Urine Glucose (UA) Neg mg/dL (Negative) 12/27/19 Unknown Urine Ketones 20 mg/dL (Negative) 12/27/19 Unknown Urine Blood Mod (Negative) 12/27/19 Unknown Urine Nitrite Neg (Negative) 12/27/19 Unknown Urine Bilirubin Neg (Negative) 12/27/19 Unknown Urine Urobilinogen < 2.0 mg/dL (<2.0) 12/27/19 Unknown Ur Leukocyte Esterase Neg (Negative) 12/27/19 Unknown Urine WBC (Auto) 2.0 /HPF (0.0-6.0) 12/27/19 Unknown Urine RBC (Auto) 28.0 /HPF (0.0-6.0) 12/27/19 Unknown U Epithel Cells (Auto) < 1.0 /HPF (0-13.0) 12/27/19 Unknown Urine Mucus 3+ /HPF 12/27/19 Unknown Fluid Type Paracentesis 01/09/20 Unknown Fluid Color Fauzia 01/09/20 Unknown Fluid Appearance Turbid 01/09/20 Unknown Fluid WBC 3225 /mm3 01/09/20 Unknown Fluid RBC 325 /mm3 01/09/20 Unknown Fluid Seg Neutrophils 87.0 % 01/09/20 Unknown Fluid Lymphocytes 10.0 % 01/09/20 Unknown Fluid Reactive Lymphs 0 % 01/09/20 Unknown Fluid Monocytes 3.0 % 01/09/20 Unknown Fluid Eosinophils 0 % 01/09/20 Unknown Fluid Basophils 0 % 01/09/20 Unknown Heparin-induced Plt Ab Negative (Negative) 01/03/20 11:08 UF Heparin High Dose 4 % Release 01/03/20 11:08 SU UFH Low Dose 0.1 9 % Release 01/03/20 11:08 SU UFH Low Dose 0.5 4 % Release 01/03/20 11:08 Blood Type B POSITIVE 01/31/20 06:19 Antibody Screen Negative 01/31/20 06:19 Crossmatch See Detail 01/31/20 06:19 Azul/IV: Voiding Method Urinal IV Catheter Type [Left Forearm INT / Saline Lock ] IV Catheter Type [Right Chest] IVAD / Port IV Catheter Type [Left Hand] INT / Saline Lock IV Catheter Type [Left Wrist] Peripheral IV IV Catheter Type [Right Peripheral IV Forearm] IV Catheter Type [Right Upper PICC Line arm] IV Catheter Type [Right INT / Saline Lock Antecubital] Active Medications - Current Medications Current Medications: Generic Name Dose Route Start Last Admin Trade Name Freq PRN Reason Stop Dose Admin Acetaminophen 650 mg 02/02/20 02:50 02/02/20 02:53 Tylenol PO 650 mg Q6H PRN Administration Fever >101 Hydrocodone Bitart/Acetaminophen 7.5 mg 01/20/20 10:00 02/02/20 19:52 Hydrocodone/Apap 7.5-325 PO 7.5 mg Q6HR PRN Administration Pain, Moderate (4-6) Dextrose 50 ml 02/02/20 11:24 D50w (25gm) Syringe IV Q30MIN PRN Hypoglycemia Protocol Hydromorphone HCl 1 mg 01/31/20 14:38 02/03/20 05:38 Dilaudid IV 1 mg Q4H PRN Administration Pain , Severe (7-10) Fat Emulsion Intravenous 250 mls @ 21 mls/hr 01/28/20 20:00 01/28/20 20:10 Intralipid 20% IV 01/29/20 07:59 21 mls/hr [email or web address] SUSAN Administration Amino Acids/Electrolytes/Dextrose 3,000 mls @ 0 mls/hr 01/28/20 20:00 01/28/20 20:08 Tpn Adult IV 01/29/20 08:00 275 mls/hr [email or web address] SUSAN Administration Protocol As Directed Levofloxacin/Dextrose 750 mg in 150 mls @ 100 mls/hr 02/01/20 11:00 02/02/20 21:32 Levaquin 750mg/150ml IV Infused Q24HR SUSAN Infusion Protocol Metronidazole 500 mg in 100 mls @ 100 mls/hr 02/02/20 06:00 02/03/20 05:30 Flagyl 500 Mg/100 Ml IV 100 mls/hr Q8HR SUSAN Administration Protocol Metoclopramide HCl 10 mg 01/20/20 10:00 01/21/20 21:52 Reglan IV 10 mg Q6H PRN Administration Nausea And Vomiting Nicotine 21 mg 12/31/19 10:00 02/02/20 11:21 Habitrol TD 21 mg QDAY SUSAN Administration Ondansetron HCl 4 mg 01/31/20 16:00 02/01/20 14:48 Zofran IV 4 mg Q8H PRN Administration Nausea And Vomiting Pantoprazole Sodium 40 mg 01/17/20 10:00 02/02/20 11:21 Protonix IV 40 mg QDAY SUSAN Administration Sodium Chloride 10 ml 12/28/19 10:00 02/02/20 21:34 Sodium Chloride Flush Syringe 10 Ml IV 10 ml BID SUSAN Administration Nutrition/Malnutrition Assess - Dietary Evaluation Nutrition/Malnutrition Findings: Nutrition Notes Start: 12/30/19 08:57 Freq: Status: Active Protocol: Document 02/02/20 12:15 LM (Rec: 02/02/20 12:19 LM [id number]) Nutrition Notes Initial or Follow up Reassessment Current Diagnosis Malnutrition Other Pertinent Diagnosis short gut syndrome s/p hemicolectomy, R nephrectomy, anemia Current Diet 12h Cyclic CPN at 125/275/ 125ml/hr Labs/Tests Reviewed Pertinent Medications Ativan Height 5 ft 8 in Weight 62.5 kg [place] Body Weight (kg) 70.00 BMI 20.9 Weight Status Appropriate Subjective/Other Information 12 hour cyclic CPN day 33. Pt experienced fever. Percent of energy/protein needs met: 100%/100% Burn Absent Trauma Absent GI Symptoms None Current % PO Negligible Minimum of two criteria Yes Body Fat Depletion Mild depletion (non-severe) Muscle Mass Mild Depletion (non-severe) Reduced Outer Diameter Grinder Strength Measurably Reduced (severe) #3 Nutrition Diagnosis Altered GI function Diagnosis Progress(for reassessment Continues documentation) #2 Nutrition Diagnosis Malnutrition Diagnosis Progress(for reassessment Continues documentation) #1 Nutrition Diagnosis Inadequate oral intake Diagnosis Progress(for reassessment Continues documentation) Is patient on ventilator? No Is Patient Ambulatory and/or Out of Bed Yes REE-([facility]. or-ambulatory/OOB) [ [id number] [id number]] Calculation Used for Recommendations [facility] Additional Notes Protein needs 78-94g (1.25-1. 5g/kg) Fluid needs 1ml/kcal Nutrition Intervention Change Diet Order: Continue CPN Nutrition Support: Continue 12 hr cyclic CPN at 125/275/125 ml/hr. MVI Osmolality 1228. Kcal 1,740 Protein (gm) 95 Carbohydrates (gm) 400 Fat (gm) 0 Fluid (mL) 3,000 Fiber (gm) 0 Goal #1 Meet at least 75% of energy and protein needs via CPN Anticipated Discharge Needs: 12 hour Cyclic TPN Follow-Up By: 02/03/20 Additional Comments Labs in AM: CLIF, , Guillermo
[2020-02-03] MEDS ORDERED: SODIUM CHLORIDE 0.9% 1000 ML 1,000 ML IV SCH (08:31)
[2020-02-03] MEDS: PANTOPRAZOLE 40 MG INJ IV SCH (09:59)
[2020-02-03] MEDS: NICOTINE 21 MG/24 HR PATCH TD SCH (09:59)
--- NOTE | 2020-02-03 10:33 | Progress Note ---
Assessment and Plan POD 30///3-- VSS AF continuing TPN, labs noted, no need for transfusion unless Hbg< 7 gm dl, I will attempt to reach out to case management about whether there is any ongoing effort to qualify this patient for SSI or any other available funding, he is obviously Completely disabled. I have nothing else to offer this patient from a surgical standpoint at this time. Subjective Date of service: 02/03/20 Patient Reports: Positive: no new complaints Objective Vital Signs - 12hr 02/03/20 08:43 Temperature 98.8 F Pulse Rate 102 H Respiratory 18 Rate Blood Pressure 105/68 O2 Sat by Pulse 99 Oximetry - Labs 02/03/20 04:00 02/03/20 04:00 Diabetes panel 02/03/20 Range/Units 04:00 Sodium 137 (137-145) mmol/L Potassium 3.8 (3.6-5.0) mmol/L Chloride 102.0 (98-107) mmol/L Carbon Dioxide 27 (22-30) mmol/L BUN 16 (9-20) mg/dL Creatinine 0.4 L (0.8-1.3) mg/dL Glucose 118 H (75-100) mg/dL Calcium 8.1 L (8.4-10.2) mg/dL AST 17 (5-40) units/L ALT 36 (7-56) units/L Alkaline Phosphatase 135 H (35-129) units/L Total Protein 4.5 L (6.3-8.2) g/dL Albumin 2.2 L (3.9-5) g/dL Calcium panel 02/03/20 Range/Units 04:00 Calcium 8.1 L (8.4-10.2) mg/dL Phosphorus 3.90 D (2.5-4.5) mg/dL Albumin 2.2 L (3.9-5) g/dL Pituitary panel 02/03/20 Range/Units 04:00 Sodium 137 (137-145) mmol/L Potassium 3.8 (3.6-5.0) mmol/L Chloride 102.0 (98-107) mmol/L Carbon Dioxide 27 (22-30) mmol/L BUN 16 (9-20) mg/dL Creatinine 0.4 L (0.8-1.3) mg/dL Glucose 118 H (75-100) mg/dL Calcium 8.1 L (8.4-10.2) mg/dL Adrenal panel 02/03/20 Range/Units 04:00 Sodium 137 (137-145) mmol/L Potassium 3.8 (3.6-5.0) mmol/L Chloride 102.0 (98-107) mmol/L Carbon Dioxide 27 (22-30) mmol/L BUN 16 (9-20) mg/dL Creatinine 0.4 L (0.8-1.3) mg/dL Glucose 118 H (75-100) mg/dL Calcium 8.1 L (8.4-10.2) mg/dL Total Bilirubin 0.80 (0.1-1.2) mg/dL AST 17 (5-40) units/L ALT 36 (7-56) units/L Alkaline Phosphatase 135 H (35-129) units/L Total Protein 4.5 L (6.3-8.2) g/dL Albumin 2.2 L (3.9-5) g/dL
[2020-02-03] MEDS ORDERED: TOTAL PARENTERAL NUTRITION 3,000 ML IV SCH (20:00)
[2020-02-03] MEDS ORDERED: HYDROmorphone 1 MG/1 ML INJ IV ONE (23:53)
[2020-02-04] MEDS: HYDROmorphone 1 MG/1 ML INJ IV PRN ×5 (03:51→20:18)
[2020-02-04] MEDS: metroNIDAZOLE/NS 500 MG/100 ML 500 MG/100 ML BAG IV SCH ×3 (06:22→23:26)
[2020-02-04 07:33] LABS: BUN/Creatinine Ratio 33; Blood Urea Nitrogen 13 mg/dL (9-20); Calcium 8.1 mg/dL (8.4-10.2); Hemolysis Index 1
[2020-02-04] MEDS: POTASSIUM CHLORIDE 10 MEQ 10 MEQ/100 ML BAG IV SCH ×2 (09:53→11:13)
--- NOTE | 2020-02-04 11:33 | Progress Note ---
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 Patient states for the past 2 days he has had some abdominal distention in the right lower quadrant and crampy 10 out of 10 pain. He has had multiple episodes of nausea and vomiting. Denies fever chills cough cold or congestion. On December 30, [address] showed patient to have free air in colon. Surgical intervention was required. Patient had surgery had partial hemicolectomy during exploratory laparotomy was subsequently intubated and transferred to the intensive care unit. On December 31, 2019 patient returned to the OR for an additional surgery. After initial extubation. Patient was not follow commands agitated unable to really protect airways and therefore was reintubated. -- Nausea/vomiting- RESOLVED likely from narcotics induced, limit use of narcotic, reglan as needed Ct abd/pelvis showed no obstruction, distended stomach General surgery recommended to stop all narcotics, strict n.p.o. except ice chips -- Small bowel obstruction Status post exploratory lap x3. per surgery note: Some ischemic bowel, S/P Hemicolectomy, Fistula washed out. CT abdomen and pelvis shows intraperitoneal fluid collection. Now s/p CT-guided paracentesis. Culture negative Monitor vital signs and labs. ID on board. Patient treated with ceftriaxone, Flagyl and fluconazole for possible intra-abdominal infection. Cultures negative so far. Status post surgery. 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 Patient is status post surgical intervention. Patient tolerated procedure well. Patient's abdominal pain has essentially resolved. Now 1 the complications is short bowel syndrome. Patient only had 4 feet of some mild bile left. This is not enough for immediate adequate absorption. Patient currently on TPN. Scheduled to have a reanastomosis of ostomy site on Tuesday or . Plan for patient to have TPN for approximately 4 to 6 months until bowel is able to heal. At that time patient will require another's procedure which is highly complicated and attempts to extend the amount of patient is bile and create better reabsorption. Even when this is complete I do not see patient improved enough to return to a viable occupation. Patient will endure chronic malnutrition with limited endurance and fatigue and potential electrolyte abnormalities that were now lateral patient in my opinion to ever gain adequate employment. Patient will be limited by his nutritional status as well as pain requirements. It is my opinion the patient would not be to adequately perform any job functions. Patient has difficulty now with ADLs and requires assistance with most ADLs. -- Dehydration: Resolved Patient well-hydrated Continue IV hydration --Acute Metabolic Encephalopathy with subsequent acute respiratory failure Resolved -- Metabolic acidosis Resolved -- ANEMIA of CD Continue to monitor hemoglobin Iron supplements -- Insomnia --Thrombocythemia Initially had thrombocytopenia and there was a concern for HIT blood test was negative Now has been thrombocythemia with platelet count up to 900s. This is likely reactive. Hematology oncology recommendations appreciated -- Severe protein calorie malnutrition cachexia : Type Soldering Machine Tender following January 25, 2020 I spoke to surgery myself plan is not to have the patient be on TPN forever. Plan will be to readdress the ostomy site. Allow TPN to let the bowel heal. Because patient had ischemic bowel. There was also plans to transfer patient to outpatient TPN clinic at [place]. Plan for anastomotic correction Sunday January 26, 2020 patient up walking around with physical therapy. Pain is better. Having problems at the ostomy site. States difficult to keep from draining and pulls off ostomy to Plan keshia to have revision done on possibly Tuesday. January 27, 2020. Patient in good spirits no bowel movement discussed plan with myself and Dr. Vick. Plan for revision of ostomy site potentially on Tuesday. January 28, 2020 no new changes in the p.m. chemical burn from bile at ostomy site. Requiring increased pain medications. No longer dehydrated no longer encephalopathic. 01/28: Awaiting change in ostomy site due to leaking. Continue supportive care and pain control. Discussed risk with pain meds extensively 01/29: No new complaints today except for pain which was adjusted and addressed by the surgeon 01/30: Patient was seen and evaluated this morning is going for ostomy revision today. Review of post surgical note indicates Pre-op diagnosis: necrotic jejunostomy, fascial dehiscience Post-op diagnosis: other (remaining bowel very friable.) Findings: , necrotics stoma of end jejunostomy. mucous fistula needed revision as well. all remaining bowel viable. fascial dehiscience. Procedure: Exploratory laparotomy, adhesiolysis, revision of jejunostomy /stoma, revision of mucous fistula, relocation of end jejunostomy, Anesthesia: GETA We will continue to monitor check labs in a.m. to ensure no insensible loss of electrolytes. Continue pain control. Case management for discharge planning when okay with surgeon. Patient continues on TPN at this time. 01/31: Continue supportive care. Will obtain Psych consultation for possible depression from prolonged hospitalization. Monitor developing leukocytosis. plan discussed with patient and patients sister 02/01: Per Surgery, Flagyl noted, ... no further role for surgical intervention for several months, since with the intense infllammatory reaction and the friable/ probable radiation induced changes in the remaining small intestine, and desmoplastic reaction from multiple surgeries , again reinforced not to pull on ostomy appliance as this results in worsening skin damage. Noted hypoglycemia: Will add PRN dextros. 02/02: Psych input noted, no meds at this time. Continue supportive care, BP improving some. Monitor for recurrent Hypoglycemia. Will continue to replace insensible loss. Discharge planning When ok with surgeon. Case management. 02/03: Awaiting home health arrangement for TPN,. unfortunately continues to remove ostomy bag. not sure why despite all the education that he continues to do this. Poor prognosis due to non compliance. May need electrolyte correction with the TPN, recheck labs in a.m. to ensure correction of hypokalemia History Interval history: Patient seen and examined, Still complaining of Pain, but resting comfortable, unfortunately continues to remove ostomy bag despite multiple advise not to do this. This morning he tells me it was saturated and he removed it and covered it with dressing. He also covered himself with blanket but denies being cold. I have advised him yet again the risk of infection and he states he understands and that is why he covered it. Hospitalist Physical - Physical exam Narrative exam: General appearance: Present: no acute distress, cachectic, marked temporal wasting - EENT Eyes: PERRL, EOM intact ENT: hearing intact, clear oral mucosa, dentition normal - Respiratory Respiratory effort: normal Respiratory: bilateral: CTA Extremities: pulses intact, No edema, normal color, Full ROM - Gastrointestinal General gastrointestinal: Present: soft, tender, hypoactive bowel sounds, wound dehiscence other, packing in place (Colostomy site excoriations to the left, although noted retraction. Right intact. Hypoactive bowel sounds. Tender to deep palpation.) - Integumentary Integumentary: erythema - Musculoskeletal Musculoskeletal: generalized weakness - Neurologic Neurologic: CNII-XII intact, focal deficits, moves all extremities - Psychiatric Psychiatric: angry, upset, intact judgment & insight, memory intact, cooperative - Constitutional Vitals: Temp Pulse Resp BP Pulse Ox 98.2 F 100 H 24 101/59 98 02/03/20 15:50 02/04/20 05:52 02/04/20 08:04 02/04/20 05:52 02/04/20 05:52 General appearance: Present: no acute distress, cachectic Results - Labs CBC & Chem 7: 02/03/20 04:00 02/04/20 06:46 Labs: Laboratory Last Values WBC 7.8 K/mm3 (4.5-11.0) 02/03/20 04:00 RBC 2.99 M/mm3 (3.65-5.03) L 02/03/20 04:00 Hgb 8.9 gm/dl (11.8-15.2) L 02/03/20 04:00 Hgb Comment See scanned result 01/12/20 06:15 Hct 26.1 % (35.5-45.6) L D 02/03/20 04:00 MCV 87 fl (84-94) 02/03/20 04:00 MCH 30 pg (28-32) 02/03/20 04:00 MCHC 34 % (32-34) 02/03/20 04:00 RDW 15.5 % (13.2-15.2) H 02/03/20 04:00 Plt Count 250 K/mm3 (140-440) 02/03/20 04:00 Lymph % (Auto) 13.2 % (13.4-35.0) L 01/25/20 07:54 Green % (Auto) 9.1 % (0.0-7.3) H 01/25/20 07:54 Eos % (Auto) 1.3 % (0.0-4.3) 01/25/20 07:54 Baso % (Auto) 0.2 % (0.0-1.8) 01/25/20 07:54 Lymph # (Auto) 1.2 K/mm3 (1.2-5.4) 01/25/20 07:54 Green # (Auto) 0.8 K/mm3 (0.0-0.8) 01/25/20 07:54 Eos # (Auto) 0.1 K/mm3 (0.0-0.4) 01/25/20 07:54 Baso # (Auto) 0.0 K/mm3 (0.0-0.1) 01/25/20 07:54 Add Manual Diff Complete 01/05/20 09:17 Total Counted 100 01/05/20 09:17 Seg Neutrophils % 76.2 % (40.0-70.0) H 01/25/20 07:54 Seg Neuts % (Manual) 97.0 % (40.0-70.0) H 01/05/20 09:17 Band Neutrophils % 0 % 01/05/20 09:17 Lymphocytes % (Manual) 0 % (13.4-35.0) L 01/05/20 09:17 Reactive Lymphs % (Man) 0 % 01/05/20 09:17 Monocytes % (Manual) 2.0 % (0.0-7.3) 01/05/20 09:17 Eosinophils % (Manual) 1.0 % (0.0-4.3) 01/05/20 09:17 Basophils % (Manual) 0 % (0.0-1.8) 01/05/20 09:17 Metamyelocytes % 0 % 01/05/20 09:17 Myelocytes % 0 % 01/05/20 09:17 Promyelocytes % 0 % 01/05/20 09:17 Blast Cells % 0 % 01/05/20 09:17 Nucleated RBC % Not Reportable 01/05/20 09:17 Seg Neutrophils # 6.8 K/mm3 (1.8-7.7) 01/25/20 07:54 Seg Neutrophils # Man 11.7 K/mm3 (1.8-7.7) H 01/05/20 09:17 Band Neutrophils # 0.0 K/mm3 01/05/20 09:17 Lymphocytes # (Manual) 0.0 K/mm3 (1.2-5.4) L 01/05/20 09:17 Abs React Lymphs (Man) 0.0 K/mm3 01/05/20 09:17 Monocytes # (Manual) 0.2 K/mm3 (0.0-0.8) 01/05/20 09:17 Eosinophils # (Manual) 0.1 K/mm3 (0.0-0.4) 01/05/20 09:17 Basophils # (Manual) 0.0 K/mm3 (0.0-0.1) 01/05/20 09:17 Metamyelocytes # 0.0 K/mm3 01/05/20 09:17 Myelocytes # 0.0 K/mm3 01/05/20 09:17 Promyelocytes # 0.0 K/mm3 01/05/20 09:17 Blast Cells # 0.0 K/mm3 01/05/20 09:17 WBC Morphology Not Reportable 01/05/20 09:17 Hypersegmented Neuts Not Reportable 01/05/20 09:17 Hyposegmented Neuts Not Reportable 01/05/20 09:17 Hypogranular Neuts Not Reportable 01/05/20 09:17 Smudge Cells Not Reportable 01/05/20 09:17 Toxic Granulation Not Reportable 01/05/20 09:17 Toxic Vacuolation Not Reportable 01/05/20 09:17 Dohle Bodies Not Reportable 01/05/20 09:17 Pelger-Huet Anomaly Not Reportable 01/05/20 09:17 Anuradha Rods Not Reportable 01/05/20 09:17 Platelet Estimate Consistent w auto 01/05/20 09:17 Clumped Platelets Not Reportable 01/05/20 09:17 Plt Clumps, EDTA Not Reportable 01/05/20 09:17 Large Platelets Not Reportable 01/05/20 09:17 Giant Platelets Not Reportable 01/05/20 09:17 Platelet Satelliting Not Reportable 01/05/20 09:17 Plt Morphology Comment Not Reportable 01/05/20 09:17 RBC Morphology Not Reportable 01/05/20 09:17 Dimorphic RBCs Not Reportable 01/05/20 09:17 Polychromasia Not Reportable 01/05/20 09:17 Hypochromasia Not Reportable 01/05/20 09:17 Poikilocytosis Not Reportable 01/05/20 09:17 Anisocytosis Few 01/05/20 09:17 Microcytosis Not Reportable 01/05/20 09:17 Macrocytosis Not Reportable 01/05/20 09:17 Spherocytes Not Reportable 01/05/20 09:17 Pappenheimer Bodies Not Reportable 01/05/20 09:17 Sickle Cells Not Reportable 01/05/20 09:17 Target Cells 1+ 01/05/20 09:17 Tear Drop Cells Not Reportable 01/05/20 09:17 Ovalocytes Not Reportable 01/05/20 09:17 Helmet Cells Not Reportable 01/05/20 09:17 [place] Bodies Not Reportable 01/05/20 09:17 [place] Rings Not Reportable 01/05/20 09:17 [place] Cells Not Reportable 01/05/20 09:17 Bite Cells Not Reportable 01/05/20 09:17 Crenated Cell Not Reportable 01/05/20 09:17 Elliptocytes Not Reportable 01/05/20 09:17 Acanthocytes (Spur) Not Reportable 01/05/20 09:17 Rouleaux Not Reportable 01/05/20 09:17 Hemoglobin C Crystals Not Reportable 01/05/20 09:17 Schistocytes Not Reportable 01/05/20 09:17 Malaria parasites Not Reportable 01/05/20 09:17 Sickle Cell Solubility See scanned result 01/12/20 06:15 Hemoglobin A See scanned result 01/12/20 06:15 Hemoglobin A2 See scanned result 01/12/20 06:15 Hemoglobin A2 Prime See scanned result 01/12/20 06:15 Hemoglobin C See scanned result 01/12/20 06:15 Hemoglobin D See scanned result 01/12/20 06:15 Hemoglobin E See scanned result 01/12/20 06:15 Hgb F Diffential Stain See scanned result 01/12/20 06:15 Hemoglobin F Quant See scanned result 01/12/20 06:15 Hemoglobin G See scanned result 01/12/20 06:15 Hemoglobin S See scanned result 01/12/20 06:15 Hemoglobin [place] See scanned result 01/12/20 06:15 Hemoglobin [place] See scanned result 01/12/20 06:15 Hemoglobin Prema See scanned result 01/12/20 06:15 Variant Hemoglobin See scanned result 01/12/20 06:15 Abnorm Hgb IEF Confirm See scanned result 01/12/20 06:15 Hemoglobin Interpret See scanned result 01/12/20 06:15 Hemoglobinopathy Note See scanned result 01/12/20 06:15 Christ Bodies Not Reportable 01/05/20 09:17 Hem Pathologist Commnt No 01/05/20 09:17 PT 14.8 Sec. (12.2-14.9) 01/08/20 19:18 INR 1.14 (0.87-1.13) H 01/08/20 19:18 APTT 42.2 Sec. (24.2-36.6) H 12/30/19 22:30 Heparin Anti-Xa, Unfract Negative (Negative) 01/03/20 11:08 ABG pH 7.456 pH Units (7.350-7.450) H 01/01/20 05:15 POC ABG pCO2 34.7 mmHg (32.0-48.0) 12/31/19 04:03 ABG pCO2 34.1 mm Hg 01/01/20 05:15 POC ABG pO2 95.1 mmHg (83-108) 12/31/19 04:03 ABG pO2 85.3 mm Hg (80.0-90.0) 01/01/20 05:15 POC ABG HCO3 20.2 12/31/19 04:03 ABG HCO3 23.5 mmol/L (20.0-26.0) 01/01/20 05:15 ABG O2 Saturation 97.1 % (95.0-99.0) 01/01/20 05:15 ABG O2 Content 9.4 (0.0-44) 01/01/20 05:15 POC ABG Base Excess -4.2 12/31/19 04:03 ABG Base Excess -0.3 mmol/L (-2.0-3.0) 01/01/20 05:15 ABG Hemoglobin 6.9 gm/dl (14.0-18.0) L 01/01/20 05:15 ABG Carboxyhemoglobin 1.4 % (0.0-5.0) 01/01/20 05:15 ABG Methemoglobin 0.7 % (0.0-1.5) 01/01/20 05:15 Oxyhemoglobin 95.0 % (95.0-99.0) 01/01/20 05:15 FiO2 35 % 01/01/20 05:15 Sodium 140 mmol/L (137-145) 02/04/20 06:46 Potassium 3.4 mmol/L (3.6-5.0) L 02/04/20 06:46 Chloride 104.0 mmol/L (98-107) 02/04/20 06:46 Carbon Dioxide 26 mmol/L (22-30) 02/04/20 06:46 Anion Gap 13 mmol/L 02/04/20 06:46 BUN 13 mg/dL (9-20) 02/04/20 06:46 Creatinine 0.4 mg/dL (0.8-1.3) L 02/04/20 06:46 Estimated GFR > 60 ml/min 02/04/20 06:46 BUN/Creatinine Ratio 33 % 02/04/20 06:46 Glucose 92 mg/dL (75-100) 02/04/20 06:46 POC Glucose 77 mg/dL (70-105) 02/02/20 06:16 Lactic Acid 1.00 mmol/L (0.7-2.0) 01/05/20 06:35 Calcium 8.1 mg/dL (8.4-10.2) L 02/04/20 06:46 Phosphorus 3.70 mg/dL (2.5-4.5) 02/04/20 06:46 Magnesium 1.70 mg/dL (1.7-2.3) 02/03/20 04:00 Iron 21 ug/dL (49-181) L 01/13/20 05:00 TIBC 179 mcg/dL (250-450) L 01/13/20 05:00 Total Bilirubin 0.80 mg/dL (0.1-1.2) 02/03/20 04:00 Direct Bilirubin 1.3 mg/dL (0-0.2) H 01/08/20 08:30 Indirect Bilirubin 1.0 mg/dL 01/08/20 08:30 AST 17 units/L (5-40) 02/03/20 04:00 ALT 36 units/L (7-56) 02/03/20 04:00 Alkaline Phosphatase 135 units/L (35-129) H 02/03/20 04:00 Total Protein 4.5 g/dL (6.3-8.2) L 02/03/20 04:00 Albumin 2.2 g/dL (3.9-5) L 02/03/20 04:00 Albumin/Globulin Ratio 1.0 % 02/03/20 04:00 Triglycerides 72 mg/dL (2-149) 01/25/20 07:54 Lipase 9 units/L (13-60) L 12/29/19 14:29 Serotonin Release Assay See scanned result 01/03/20 11:08 Urine Color Yellow (Yellow) 12/27/19 Unknown Urine Turbidity Clear (Clear) 12/27/19 Unknown Urine pH 5.0 (5.0-7.0) 12/27/19 Unknown Ur Specific [place] > 1.059 (1.003-1.030) H 12/27/19 Unknown Urine Protein 30 mg/dl mg/dL (Negative) 12/27/19 Unknown Urine Glucose (UA) Neg mg/dL (Negative) 12/27/19 Unknown Urine Ketones 20 mg/dL (Negative) 12/27/19 Unknown Urine Blood Mod (Negative) 12/27/19 Unknown Urine Nitrite Neg (Negative) 12/27/19 Unknown Urine Bilirubin Neg (Negative) 12/27/19 Unknown Urine Urobilinogen < 2.0 mg/dL (<2.0) 12/27/19 Unknown Ur Leukocyte Esterase Neg (Negative) 12/27/19 Unknown Urine WBC (Auto) 2.0 /HPF (0.0-6.0) 12/27/19 Unknown Urine RBC (Auto) 28.0 /HPF (0.0-6.0) 12/27/19 Unknown U Epithel Cells (Auto) < 1.0 /HPF (0-13.0) 12/27/19 Unknown Urine Mucus 3+ /HPF 12/27/19 Unknown Fluid Type Paracentesis 01/09/20 Unknown Fluid Color Fauzia 01/09/20 Unknown Fluid Appearance Turbid 01/09/20 Unknown Fluid WBC 3225 /mm3 01/09/20 Unknown Fluid RBC 325 /mm3 01/09/20 Unknown Fluid Seg Neutrophils 87.0 % 01/09/20 Unknown Fluid Lymphocytes 10.0 % 01/09/20 Unknown Fluid Reactive Lymphs 0 % 01/09/20 Unknown Fluid Monocytes 3.0 % 01/09/20 Unknown Fluid Eosinophils 0 % 01/09/20 Unknown Fluid Basophils 0 % 01/09/20 Unknown Heparin-induced Plt Ab Negative (Negative) 01/03/20 11:08 UF Heparin High Dose 4 % Release 01/03/20 11:08 SU UFH Low Dose 0.1 9 % Release 01/03/20 11:08 SU UFH Low Dose 0.5 4 % Release 01/03/20 11:08 Blood Type B POSITIVE 01/31/20 06:19 Antibody Screen Negative 01/31/20 06:19 Crossmatch See Detail 01/31/20 06:19 Azul/IV: Voiding Method Toilet IV Catheter Type [Left Forearm INT / Saline Lock ] IV Catheter Type [Right Chest] IVAD / Port IV Catheter Type [Left Hand] INT / Saline Lock IV Catheter Type [Left Wrist] Peripheral IV IV Catheter Type [Right Peripheral IV Forearm] IV Catheter Type [Right Upper PICC Line arm] IV Catheter Type [Right INT / Saline Lock Antecubital] Active Medications - Current Medications Current Medications: Generic Name Dose Route Start Last Admin Trade Name Freq PRN Reason Stop Dose Admin Acetaminophen 650 mg 02/02/20 02:50 02/02/20 02:53 Tylenol PO 650 mg Q6H PRN Administration Fever >101 Hydrocodone Bitart/Acetaminophen 7.5 mg 01/20/20 10:00 02/03/20 15:23 Hydrocodone/Apap 7.5-325 PO 7.5 mg Q6HR PRN Administration Pain, Moderate (4-6) Dextrose 50 ml 02/02/20 11:24 D50w (25gm) Syringe IV Q30MIN PRN Hypoglycemia Protocol Hydromorphone HCl 1 mg 01/31/20 14:38 02/04/20 08:04 Dilaudid IV 1 mg Q4H PRN Administration Pain , Severe (7-10) Fat Emulsion Intravenous 250 mls @ 21 mls/hr 01/28/20 20:00 01/28/20 20:10 Intralipid 20% IV 01/29/20 07:59 21 mls/hr [email or web address] SUSAN Administration Amino Acids/Electrolytes/Dextrose 3,000 mls @ 0 mls/hr 01/28/20 20:00 01/28/20 20:08 Tpn Adult IV 01/29/20 08:00 275 mls/hr [email or web address] SUSAN Administration Protocol As Directed Levofloxacin/Dextrose 750 mg in 150 mls @ 100 mls/hr 02/01/20 11:00 02/03/20 20:12 Levaquin 750mg/150ml IV Infused Q24HR SUSAN Infusion Protocol Metronidazole 500 mg in 100 mls @ 100 mls/hr 02/02/20 06:00 02/04/20 06:22 Flagyl 500 Mg/100 Ml IV 100 mls/hr Q8HR SUSAN Administration Protocol Potassium Chloride 10 meq in 100 mls @ 100 mls/hr 02/04/20 09:30 02/04/20 11:13 Kcl 10meq/100ml IV 02/04/20 11:29 100 mls/hr Q1H SUSAN Administration Metoclopramide HCl 10 mg 01/20/20 10:00 01/21/20 21:52 Reglan IV 10 mg Q6H PRN Administration Nausea And Vomiting Nicotine 21 mg 12/31/19 10:00 02/03/20 09:59 Habitrol TD 21 mg QDAY SUSAN Administration Ondansetron HCl 4 mg 01/31/20 16:00 02/01/20 14:48 Zofran IV 4 mg Q8H PRN Administration Nausea And Vomiting Pantoprazole Sodium 40 mg 01/17/20 10:00 02/03/20 09:59 Protonix IV 40 mg QDAY SUSAN Administration Sodium Chloride 10 ml 12/28/19 10:00 02/03/20 23:13 Sodium Chloride Flush Syringe 10 Ml IV 10 ml BID SUSAN Administration Nutrition/Malnutrition Assess - Dietary Evaluation Nutrition/Malnutrition Findings: Nutrition Notes Start: 12/30/19 08:57 Freq: Status: Active Protocol: Document 02/03/20 09:25 LM (Rec: 02/03/20 09:30 LM [id number]) Nutrition Notes Initial or Follow up Reassessment Current Diagnosis Malnutrition Other Pertinent Diagnosis short gut syndrome s/p hemicolectomy, R nephrectomy, anemia Current Diet 12h Cyclic CPN at 125/275/ 125ml/hr Labs/Tests Reviewed Pertinent Medications Reviewed Height 5 ft 8 in Weight 62.5 kg [place] Body Weight (kg) 70.00 BMI 20.9 Weight Status Appropriate Subjective/Other Information 12 hour cyclic CPN day 34. 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 No Is Patient Ambulatory and/or Out of Bed Yes REE-([facility]-ambulatory/OOB) [ [id number] [id number]] Calculation Used for Recommendations [facility] Additional Notes Protein needs 78-94g (1.25-1. 5g/kg) Fluid needs 1ml/kcal Nutrition Intervention Change Diet Order: Continue CPN Nutrition Support: Continue 12 hr cyclic CPN at 125/275/125 ml/hr. 30 mmol Phos, MVI Osmolality 1228. Kcal 1,740 Protein (gm) 95 Carbohydrates (gm) 400 Fat (gm) 0 Fluid (mL) 3,000 Fiber (gm) 0 Goal #1 Meet at least 75% of energy and protein needs via CPN Anticipated Discharge Needs: 12 hour Cyclic TPN Follow-Up By: 02/04/20 Additional Comments Labs in AM: BMP, Mag, Phos
[2020-02-04] MEDS: PANTOPRAZOLE 40 MG INJ IV SCH (12:06)
[2020-02-04] MEDS: NICOTINE 21 MG/24 HR PATCH TD SCH (12:06)
--- NOTE | 2020-02-04 13:41 | Event Note ---
Date: 02/04/20 POD /// VSS AFebrile, patient seems more oriented and appropriate today, Wound nurse to see and address ostomy, Will consider stopping iv antbiotics tomorrow. Little else to add, once again I instructed the patient to NOT REMOVE ostomy appliance but he continues to be non compliant with this. this could become a serious problem for the patient.
[2020-02-04] MEDS ORDERED: FAT EMULSIONS 20% 250 ML IV SCH (20:00)
[2020-02-04] MEDS ORDERED: TOTAL PARENTERAL NUTRITION 3,000 ML IV SCH (20:00)
[2020-02-04] MEDS: HYDROcodone/APAP 7.5-325MG-15ML ORAL LIQD PO PRN (23:33)
[2020-02-05] MEDS: HYDROmorphone 1 MG/1 ML INJ IV PRN ×5 (01:31→18:03)
[2020-02-05] MEDS: metroNIDAZOLE/NS 500 MG/100 ML 500 MG/100 ML BAG IV SCH (05:17)
--- NOTE | 2020-02-05 06:29 | Event Note ---
Date: 02/05/20 POD , VSS AF, will d/c antibiotics today, OK for patient to have ice chips, sips of liquids,rock candy etc. [facility] nurses note reviewed , the saha now is to establish a continent ostomy appliance, patients diet can be advanced only if we can maintain a competent ostomy appliance, can consider convex ostomy bag/ I will discuss with Ostomy nurse, there will be a fine balance being able to supplement calorie intake with oral diet/ but this may not be possible depending on high outputs into ostomy bag with potential for surrounding skin burn from bile acids, etc. 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 I have done all that I can do from a General Surgical perspective at this time. If he survivies he will have to be refered as outpatient to [facility] or some other suitable academic facility with expertise in this area. I wish I could do more to help this unfortunate patient. I will begin to wean iv narcotics over the next several days and try to switch to oral pain meds.
[2020-02-05 06:32] LABS: Blood Urea Nitrogen 13 mg/dL (9-20); Calcium 8.2 mg/dL (8.4-10.2); Hemolysis Index 4
[2020-02-05 06:42] LABS: BUN/Creatinine Ratio 33
[2020-02-05] MEDS: HYDROcodone/APAP 7.5-325MG-15ML ORAL LIQD PO PRN (06:55)
[2020-02-05] MEDS: PANTOPRAZOLE 40 MG INJ IV SCH (09:58)
[2020-02-05] MEDS: NICOTINE 21 MG/24 HR PATCH TD SCH (09:58)
--- NOTE | 2020-02-05 15:16 | Progress Note ---
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 Patient states for the past 2 days he has had some abdominal distention in the right lower quadrant and crampy 10 out of 10 pain. He has had multiple episodes of nausea and vomiting. Denies fever chills cough cold or congestion. On December 30, [address] showed patient to have free air in colon. Surgical intervention was required. Patient had surgery had partial hemicolectomy during exploratory laparotomy was subsequently intubated and transferred to the intensive care unit. On December 31, 2019 patient returned to the OR for an additional surgery. After initial extubation. Patient was not follow commands agitated unable to really protect airways and therefore was reintubated. -- Nausea/vomiting- RESOLVED likely from narcotics induced, limit use of narcotic, reglan as needed Ct abd/pelvis showed no obstruction, distended stomach General surgery recommended to stop all narcotics, strict n.p.o. except ice chips -- Small bowel obstruction Status post exploratory lap x3. per surgery note: Some ischemic bowel, S/P Hemicolectomy, Fistula washed out. CT abdomen and pelvis shows intraperitoneal fluid collection. Now s/p CT-guided paracentesis. Culture negative Monitor vital signs and labs. ID on board. Patient treated with ceftriaxone, Flagyl and fluconazole for possible intra-abdominal infection. Cultures negative so far. Status post surgery. 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 Patient is status post surgical intervention. Patient tolerated procedure well. Patient's abdominal pain has essentially resolved. Now 1 the complications is short bowel syndrome. Patient only had 4 feet of some mild bile left. This is not enough for immediate adequate absorption. Patient currently on TPN. Scheduled to have a reanastomosis of ostomy site on Tuesday or . Plan for patient to have TPN for approximately 4 to 6 months until bowel is able to heal. At that time patient will require another's procedure which is highly complicated and attempts to extend the amount of patient is bile and create better reabsorption. Even when this is complete I do not see patient improved enough to return to a viable occupation. Patient will endure chronic malnutrition with limited endurance and fatigue and potential electrolyte abnormalities that were now lateral patient in my opinion to ever gain adequate employment. Patient will be limited by his nutritional status as well as pain requirements. It is my opinion the patient would not be to adequately perform any job functions. Patient has difficulty now with ADLs and requires assistance with most ADLs. -- Dehydration: Resolved Patient well-hydrated Continue IV hydration --Acute Metabolic Encephalopathy with subsequent acute respiratory failure Resolved -- Metabolic acidosis Resolved -- ANEMIA of CD Continue to monitor hemoglobin Iron supplements -- Insomnia --Thrombocythemia Initially had thrombocytopenia and there was a concern for HIT blood test was negative Now has been thrombocythemia with platelet count up to 900s. This is likely reactive. Hematology oncology recommendations appreciated -- Severe protein calorie malnutrition cachexia : Line Helper following January 25, 2020 I spoke to surgery myself plan is not to have the patient be on TPN forever. Plan will be to readdress the ostomy site. Allow TPN to let the bowel heal. Because patient had ischemic bowel. There was also plans to transfer patient to outpatient TPN clinic at [facility]. Plan for anastomotic correction Sunday January 26, 2020 patient up walking around with physical therapy. Pain is better. Having problems at the ostomy site. States difficult to keep from draining and pulls off ostomy to Plan keshia to have revision done on possibly Tuesday. January 27, 2020. Patient in good spirits no bowel movement discussed plan with myself and Dr. Vick. Plan for revision of ostomy site potentially on Tuesday. January 28, 2020 no new changes in the p.m. chemical burn from bile at ostomy site. Requiring increased pain medications. No longer dehydrated no longer encephalopathic. 01/28: Awaiting change in ostomy site due to leaking. Continue supportive care and pain control. Discussed risk with pain meds extensively 01/29: No new complaints today except for pain which was adjusted and addressed by the surgeon 01/30: Patient was seen and evaluated this morning is going for ostomy revision today. Review of post surgical note indicates Pre-op diagnosis: necrotic jejunostomy, fascial dehiscience Post-op diagnosis: other (remaining bowel very friable.) Findings: , necrotics stoma of end jejunostomy. mucous fistula needed revision as well. all remaining bowel viable. fascial dehiscience. Procedure: Exploratory laparotomy, adhesiolysis, revision of jejunostomy /stoma, revision of mucous fistula, relocation of end jejunostomy, Anesthesia: GETA We will continue to monitor check labs in a.m. to ensure no insensible loss of electrolytes. Continue pain control. Case management for discharge planning when okay with surgeon. Patient continues on TPN at this time. 01/31: Continue supportive care. Will obtain Psych consultation for possible depression from prolonged hospitalization. Monitor developing leukocytosis. plan discussed with patient and patients sister 02/01: Per Surgery, Flagyl noted, ... no further role for surgical intervention for several months, since with the intense infllammatory reaction and the friable/ probable radiation induced changes in the remaining small intestine, and desmoplastic reaction from multiple surgeries , again reinforced not to pull on ostomy appliance as this results in worsening skin damage. Noted hypoglycemia: Will add PRN dextros. 02/02: Psych input noted, no meds at this time. Continue supportive care, BP improving some. Monitor for recurrent Hypoglycemia. Will continue to replace insensible loss. Discharge planning When ok with surgeon. Case management. 02/03: Awaiting home health arrangement for TPN,. unfortunately continues to remove ostomy bag. not sure why despite all the education that he continues to do this. Poor prognosis due to non compliance. May need electrolyte correction with the TPN, recheck labs in a.m. to ensure correction of hypokalemia 02/04. Surgery follow up notes reviewed. May have ice chips. Still has pain. Vitals stable. He needs some form of insurance - medicaid. Will discuss with briefcase sewer. History Interval history: Patient seen and examined at bedside this morning. He has no fresh complaints today. Hospitalist Physical - Constitutional Vitals: Temp Pulse Resp BP Pulse Ox 98.4 F 108 H 20 114/80 95 02/05/20 13:00 02/05/20 13:00 02/05/20 13:00 02/05/20 13:00 02/05/20 13:00 General appearance: Present: no acute distress, cachectic - EENT Eyes: Present: PERRL - Respiratory Respiratory effort: normal Respiratory: bilateral: CTA - Cardiovascular Heart Sounds: Present: S1 & S2 - Extremities Extremities: No edema - Abdominal General gastrointestinal: soft, other (midline surgical scar with ostomy draining green effluent. tender to palpation) - Psychiatric Psychiatric: appropriate mood/affect - Neurologic Neurologic: CNII-XII intact Results - Labs CBC & Chem 7: 02/03/20 04:00 02/05/20 05:21 Labs: Laboratory Last Values WBC 7.8 K/mm3 (4.5-11.0) 02/03/20 04:00 RBC 2.99 M/mm3 (3.65-5.03) L 02/03/20 04:00 Hgb 8.9 gm/dl (11.8-15.2) L 02/03/20 04:00 Hgb Comment See scanned result 01/12/20 06:15 Hct 26.1 % (35.5-45.6) L D 02/03/20 04:00 MCV 87 fl (84-94) 02/03/20 04:00 MCH 30 pg (28-32) 02/03/20 04:00 MCHC 34 % (32-34) 02/03/20 04:00 RDW 15.5 % (13.2-15.2) H 02/03/20 04:00 Plt Count 250 K/mm3 (140-440) 02/03/20 04:00 Lymph % (Auto) 13.2 % (13.4-35.0) L 01/25/20 07:54 [place]y % (Auto) 9.1 % (0.0-7.3) H 01/25/20 07:54 Eos % (Auto) 1.3 % (0.0-4.3) 01/25/20 07:54 Baso % (Auto) 0.2 % (0.0-1.8) 01/25/20 07:54 Lymph # (Auto) 1.2 K/mm3 (1.2-5.4) 01/25/20 07:54 [place]y # (Auto) 0.8 K/mm3 (0.0-0.8) 01/25/20 07:54 Eos # (Auto) 0.1 K/mm3 (0.0-0.4) 01/25/20 07:54 Baso # (Auto) 0.0 K/mm3 (0.0-0.1) 01/25/20 07:54 Add Manual Diff Complete 01/05/20 09:17 Total Counted 100 01/05/20 09:17 Seg Neutrophils % 76.2 % (40.0-70.0) H 01/25/20 07:54 Seg Neuts % (Manual) 97.0 % (40.0-70.0) H 01/05/20 09:17 Band Neutrophils % 0 % 01/05/20 09:17 Lymphocytes % (Manual) 0 % (13.4-35.0) L 01/05/20 09:17 Reactive Lymphs % (Man) 0 % 01/05/20 09:17 Monocytes % (Manual) 2.0 % (0.0-7.3) 01/05/20 09:17 Eosinophils % (Manual) 1.0 % (0.0-4.3) 01/05/20 09:17 Basophils % (Manual) 0 % (0.0-1.8) 01/05/20 09:17 Metamyelocytes % 0 % 01/05/20 09:17 Myelocytes % 0 % 01/05/20 09:17 Promyelocytes % 0 % 01/05/20 09:17 Blast Cells % 0 % 01/05/20 09:17 Nucleated RBC % Not Reportable 01/05/20 09:17 Seg Neutrophils # 6.8 K/mm3 (1.8-7.7) 01/25/20 07:54 Seg Neutrophils # Man 11.7 K/mm3 (1.8-7.7) H 01/05/20 09:17 Band Neutrophils # 0.0 K/mm3 01/05/20 09:17 Lymphocytes # (Manual) 0.0 K/mm3 (1.2-5.4) L 01/05/20 09:17 Abs React Lymphs (Man) 0.0 K/mm3 01/05/20 09:17 Monocytes # (Manual) 0.2 K/mm3 (0.0-0.8) 01/05/20 09:17 Eosinophils # (Manual) 0.1 K/mm3 (0.0-0.4) 01/05/20 09:17 Basophils # (Manual) 0.0 K/mm3 (0.0-0.1) 01/05/20 09:17 Metamyelocytes # 0.0 K/mm3 01/05/20 09:17 Myelocytes # 0.0 K/mm3 01/05/20 09:17 Promyelocytes # 0.0 K/mm3 01/05/20 09:17 Blast Cells # 0.0 K/mm3 01/05/20 09:17 WBC Morphology Not Reportable 01/05/20 09:17 Hypersegmented Neuts Not Reportable 01/05/20 09:17 Hyposegmented Neuts Not Reportable 01/05/20 09:17 Hypogranular Neuts Not Reportable 01/05/20 09:17 Smudge Cells Not Reportable 01/05/20 09:17 Toxic Granulation Not Reportable 01/05/20 09:17 Toxic Vacuolation Not Reportable 01/05/20 09:17 Dohle Bodies Not Reportable 01/05/20 09:17 Pelger-Huet Anomaly Not Reportable 01/05/20 09:17 Anuradha Rods Not Reportable 01/05/20 09:17 Platelet Estimate Consistent w auto 01/05/20 09:17 Clumped Platelets Not Reportable 01/05/20 09:17 Plt Clumps, EDTA Not Reportable 01/05/20 09:17 Large Platelets Not Reportable 01/05/20 09:17 Giant Platelets Not Reportable 01/05/20 09:17 Platelet Satelliting Not Reportable 01/05/20 09:17 Plt Morphology Comment Not Reportable 01/05/20 09:17 RBC Morphology Not Reportable 01/05/20 09:17 Dimorphic RBCs Not Reportable 01/05/20 09:17 Polychromasia Not Reportable 01/05/20 09:17 Hypochromasia Not Reportable 01/05/20 09:17 Poikilocytosis Not Reportable 01/05/20 09:17 Anisocytosis Few 01/05/20 09:17 Microcytosis Not Reportable 01/05/20 09:17 Macrocytosis Not Reportable 01/05/20 09:17 Spherocytes Not Reportable 01/05/20 09:17 Pappenheimer Bodies Not Reportable 01/05/20 09:17 Sickle Cells Not Reportable 01/05/20 09:17 Target Cells 1+ 01/05/20 09:17 Tear Drop Cells Not Reportable 01/05/20 09:17 Ovalocytes Not Reportable 01/05/20 09:17 Helmet Cells Not Reportable 01/05/20 09:17 [place] Bodies Not Reportable 01/05/20 09:17 Pray Rings Not Reportable 01/05/20 09:17 Kaylie Cells Not Reportable 01/05/20 09:17 Bite Cells Not Reportable 01/05/20 09:17 Crenated Cell Not Reportable 01/05/20 09:17 Elliptocytes Not Reportable 01/05/20 09:17 Acanthocytes (Spur) Not Reportable 01/05/20 09:17 Rouleaux Not Reportable 01/05/20 09:17 Hemoglobin C Crystals Not Reportable 01/05/20 09:17 Schistocytes Not Reportable 01/05/20 09:17 Malaria parasites Not Reportable 01/05/20 09:17 Sickle Cell Solubility See scanned result 01/12/20 06:15 Hemoglobin A See scanned result 01/12/20 06:15 Hemoglobin A2 See scanned result 01/12/20 06:15 Hemoglobin A2 Prime See scanned result 01/12/20 06:15 Hemoglobin C See scanned result 01/12/20 06:15 Hemoglobin D See scanned result 01/12/20 06:15 Hemoglobin E See scanned result 01/12/20 06:15 Hgb F Diffential Stain See scanned result 01/12/20 06:15 Hemoglobin F Quant See scanned result 01/12/20 06:15 Hemoglobin G See scanned result 01/12/20 06:15 Hemoglobin S See scanned result 01/12/20 06:15 Hemoglobin O-[place] See scanned result 01/12/20 06:15 Hemoglobin [place] See scanned result 01/12/20 06:15 Hemoglobin Prema See scanned result 01/12/20 06:15 Variant Hemoglobin See scanned result 01/12/20 06:15 Abnorm Hgb IEF Confirm See scanned result 01/12/20 06:15 Hemoglobin Interpret See scanned result 01/12/20 06:15 Hemoglobinopathy Note See scanned result 01/12/20 06:15 Christ Bodies Not Reportable 01/05/20 09:17 Hem Pathologist Commnt No 01/05/20 09:17 PT 14.8 Sec. (12.2-14.9) 01/08/20 19:18 INR 1.14 (0.87-1.13) H 01/08/20 19:18 APTT 42.2 Sec. (24.2-36.6) H 12/30/19 22:30 Heparin Anti-Xa, Unfract Negative (Negative) 01/03/20 11:08 ABG pH 7.456 pH Units (7.350-7.450) H 01/01/20 05:15 POC ABG pCO2 34.7 mmHg (32.0-48.0) 12/31/19 04:03 ABG pCO2 34.1 mm Hg 01/01/20 05:15 POC ABG pO2 95.1 mmHg (83-108) 12/31/19 04:03 ABG pO2 85.3 mm Hg (80.0-90.0) 01/01/20 05:15 POC ABG HCO3 20.2 12/31/19 04:03 ABG HCO3 23.5 mmol/L (20.0-26.0) 01/01/20 05:15 ABG O2 Saturation 97.1 % (95.0-99.0) 01/01/20 05:15 ABG O2 Content 9.4 (0.0-44) 01/01/20 05:15 POC ABG Base Excess -4.2 12/31/19 04:03 ABG Base Excess -0.3 mmol/L (-2.0-3.0) 01/01/20 05:15 ABG Hemoglobin 6.9 gm/dl (14.0-18.0) L 01/01/20 05:15 ABG Carboxyhemoglobin 1.4 % (0.0-5.0) 01/01/20 05:15 ABG Methemoglobin 0.7 % (0.0-1.5) 01/01/20 05:15 Oxyhemoglobin 95.0 % (95.0-99.0) 01/01/20 05:15 FiO2 35 % 01/01/20 05:15 Sodium 139 mmol/L (137-145) 02/05/20 05:21 Potassium 3.6 mmol/L (3.6-5.0) 02/05/20 05:21 Chloride 102.4 mmol/L (98-107) 02/05/20 05:21 Carbon Dioxide 24 mmol/L (22-30) 02/05/20 05:21 Anion Gap 16 mmol/L 02/05/20 05:21 BUN 13 mg/dL (9-20) 02/05/20 05:21 Creatinine 0.4 mg/dL (0.8-1.3) L 02/05/20 05:21 Estimated GFR > 60 ml/min 02/05/20 05:21 BUN/Creatinine Ratio 33 % 02/05/20 05:21 Glucose 121 mg/dL (75-100) H 02/05/20 05:21 POC Glucose 124 mg/dL (70-105) H 02/05/20 05:56 Lactic Acid 1.00 mmol/L (0.7-2.0) 01/05/20 06:35 Calcium 8.2 mg/dL (8.4-10.2) L 02/05/20 05:21 Phosphorus 3.40 mg/dL (2.5-4.5) 02/05/20 05:21 Magnesium 1.70 mg/dL (1.7-2.3) 02/03/20 04:00 Iron 21 ug/dL (49-181) L 01/13/20 05:00 TIBC 179 mcg/dL (250-450) L 01/13/20 05:00 Total Bilirubin 0.80 mg/dL (0.1-1.2) 02/03/20 04:00 Direct Bilirubin 1.3 mg/dL (0-0.2) H 01/08/20 08:30 Indirect Bilirubin 1.0 mg/dL 01/08/20 08:30 AST 17 units/L (5-40) 02/03/20 04:00 ALT 36 units/L (7-56) 02/03/20 04:00 Alkaline Phosphatase 135 units/L (35-129) H 02/03/20 04:00 Total Protein 4.5 g/dL (6.3-8.2) L 02/03/20 04:00 Albumin 2.2 g/dL (3.9-5) L 02/03/20 04:00 Albumin/Globulin Ratio 1.0 % 02/03/20 04:00 Triglycerides 72 mg/dL (2-149) 01/25/20 07:54 Lipase 9 units/L (13-60) L 12/29/19 14:29 Serotonin Release Assay See scanned result 01/03/20 11:08 Urine Color Yellow (Yellow) 12/27/19 Unknown Urine Turbidity Clear (Clear) 12/27/19 Unknown Urine pH 5.0 (5.0-7.0) 12/27/19 Unknown Ur Specific [place] > 1.059 (1.003-1.030) H 12/27/19 Unknown Urine Protein 30 mg/dl mg/dL (Negative) 12/27/19 Unknown Urine Glucose (UA) Neg mg/dL (Negative) 12/27/19 Unknown Urine Ketones 20 mg/dL (Negative) 12/27/19 Unknown Urine Blood Mod (Negative) 12/27/19 Unknown Urine Nitrite Neg (Negative) 12/27/19 Unknown Urine Bilirubin Neg (Negative) 12/27/19 Unknown Urine Urobilinogen < 2.0 mg/dL (<2.0) 12/27/19 Unknown Ur Leukocyte Esterase Neg (Negative) 12/27/19 Unknown Urine WBC (Auto) 2.0 /HPF (0.0-6.0) 12/27/19 Unknown Urine RBC (Auto) 28.0 /HPF (0.0-6.0) 12/27/19 Unknown U Epithel Cells (Auto) < 1.0 /HPF (0-13.0) 12/27/19 Unknown Urine Mucus 3+ /HPF 12/27/19 Unknown Fluid Type Paracentesis 01/09/20 Unknown Fluid Color Fauzia 01/09/20 Unknown Fluid Appearance Turbid 01/09/20 Unknown Fluid WBC 3225 /mm3 01/09/20 Unknown Fluid RBC 325 /mm3 01/09/20 Unknown Fluid Seg Neutrophils 87.0 % 01/09/20 Unknown Fluid Lymphocytes 10.0 % 01/09/20 Unknown Fluid Reactive Lymphs 0 % 01/09/20 Unknown Fluid Monocytes 3.0 % 01/09/20 Unknown Fluid Eosinophils 0 % 01/09/20 Unknown Fluid Basophils 0 % 01/09/20 Unknown Heparin-induced Plt Ab Negative (Negative) 01/03/20 11:08 UF Heparin High Dose 4 % Release 01/03/20 11:08 SU UFH Low Dose 0.1 9 % Release 01/03/20 11:08 SU UFH Low Dose 0.5 4 % Release 01/03/20 11:08 Blood Type B POSITIVE 01/31/20 06:19 Antibody Screen Negative 01/31/20 06:19 Crossmatch See Detail 01/31/20 06:19 Azul/IV: Voiding Method Urinal IV Catheter Type [Left Forearm INT / Saline Lock ] IV Catheter Type [Right Chest] IVAD / Port IV Catheter Type [Left Hand] INT / Saline Lock IV Catheter Type [Left Wrist] Peripheral IV IV Catheter Type [Right Peripheral IV Forearm] IV Catheter Type [Right Upper PICC Line arm] IV Catheter Type [Right INT / Saline Lock Antecubital] Active Medications - Current Medications Current Medications: Generic Name Dose Route Start Last Admin Trade Name Edwige PRN Reason Stop Dose Admin Acetaminophen 650 mg 02/02/20 02:50 02/02/20 02:53 Tylenol PO 650 mg Q6H PRN Administration Fever >101 Hydrocodone Bitart/Acetaminophen 7.5 mg 01/20/20 10:00 02/05/20 06:55 Hydrocodone/Apap 7.5-325 PO 7.5 mg Q6HR PRN Administration Pain, Moderate (4-6) Dextrose 50 ml 02/02/20 11:24 D50w (25gm) Syringe IV Q30MIN PRN Hypoglycemia Protocol Hydromorphone HCl 1 mg 01/31/20 14:38 02/05/20 13:55 Dilaudid IV 1 mg Q4H PRN Administration Pain , Severe (7-10) Fat Emulsion Intravenous 250 mls @ 21 mls/hr 01/28/20 20:00 01/28/20 20:10 Intralipid 20% IV 01/29/20 07:59 21 mls/hr [email or web address] SUSAN Administration Amino Acids/Electrolytes/Dextrose 3,000 mls @ 0 mls/hr 01/28/20 20:00 01/28/20 20:08 Tpn Adult IV 01/29/20 08:00 275 mls/hr [email or web address] SUSAN Administration Protocol As Directed Amino Acids/Electrolytes/Dextrose 3,000 mls @ 0 mls/hr 02/05/20 20:00 Tpn Adult IV 02/06/20 08:00 [email or web address] SUSAN Protocol As Directed Nicotine 21 mg 12/31/19 10:00 02/05/20 09:58 Habitrol TD 21 mg QDAY SUSAN Administration Ondansetron HCl 4 mg 01/31/20 16:00 02/01/20 14:48 Zofran IV 4 mg Q8H PRN Administration Nausea And Vomiting Pantoprazole Sodium 40 mg 01/17/20 10:00 02/05/20 09:58 Protonix IV 40 mg QDAY SUSAN Administration Sodium Chloride 10 ml 12/28/19 10:00 02/05/20 09:59 Sodium Chloride Flush Syringe 10 Ml IV 10 ml BID SUSAN Administration Nutrition/Malnutrition Assess - Dietary Evaluation Nutrition/Malnutrition Findings: Nutrition Notes Start: 12/30/19 08:57 Freq: Status: Active Protocol: Document 02/05/20 12:37 AL (Rec: 02/05/20 12:51 AL [id number]) Co-Sign 02/05/20 12:37 MK Nutrition Notes Initial or Follow up Reassessment Current Diagnosis Malnutrition Other Pertinent Diagnosis short gut syndrome s/p hemicolectomy, R nephrectomy, anemia Current Diet 12h Cyclic CPN at 125/275/ 125ml/hr Labs/Tests Reviewed Pertinent Medications Reviewed Height 5 ft 8 in Weight 62.5 kg [place] Body Weight (kg) 70.00 BMI 20.9 Weight Status Appropriate Subjective/Other Information 12 hour cyclic CPN day 36. No new changes. Patient tolerating CPN well. 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 No Is Patient Ambulatory and/or Out of Bed Yes REE-([facility]-ambulatory/OOB) [ [id number] [id number]] Calculation Used for Recommendations [facility] Additional Notes Protein needs 78-94g (1.25-1. 5g/kg) Fluid needs 1ml/kcal Nutrition Intervention Change Diet Order: Continue CPN Nutrition Support: Continue 12 hr cyclic CPN at 125/275/125 ml/hr. MVI, MTE Osmolality 1249. Kcal 1,740 Protein (gm) 95 Carbohydrates (gm) 400 Fat (gm) 0 Fluid (mL) 3,000 Fiber (gm) 0 Goal #1 Meet at least 75% of energy and protein needs via CPN Anticipated Discharge Needs: 12 hour Cyclic TPN Follow-Up By: 02/06/20 Additional Comments Labs in AM: BMP, Mag, TG
[2020-02-05] MEDS ORDERED: TOTAL PARENTERAL NUTRITION 3,000 ML IV SCH (20:00)
[2020-02-06] MEDS: HYDROmorphone 1 MG/1 ML INJ IV PRN ×6 (01:57→23:25)
[2020-02-06 06:18] LABS: Blood Urea Nitrogen 12 mg/dL (9-20); Calcium 8.4 mg/dL (8.4-10.2); Hemolysis Index 8
[2020-02-06 06:20] LABS: BUN/Creatinine Ratio 24
[2020-02-06] MEDS: NICOTINE 21 MG/24 HR PATCH TD SCH (10:28)
[2020-02-06] MEDS: PANTOPRAZOLE 40 MG INJ IV SCH (10:28)
--- NOTE | 2020-02-06 12:02 | Progress Note ---
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 Patient states for the past 2 days he has had some abdominal distention in the right lower quadrant and crampy 10 out of 10 pain. He has had multiple episodes of nausea and vomiting. Denies fever chills cough cold or congestion. On December 30, [address] showed patient to have free air in colon. Surgical intervention was required. Patient had surgery had partial hemicolectomy during exploratory laparotomy was subsequently intubated and transferred to the intensive care unit. On December 31, 2019 patient returned to the OR for an additional surgery. After initial extubation. Patient was not follow commands agitated unable to really protect airways and therefore was reintubated. -- Nausea/vomiting- RESOLVED likely from narcotics induced, limit use of narcotic, reglan as needed Ct abd/pelvis showed no obstruction, distended stomach General surgery recommended to stop all narcotics, strict n.p.o. except ice chips -- Small bowel obstruction Status post exploratory lap x3. per surgery note: Some ischemic bowel, S/P Hemicolectomy, Fistula washed out. CT abdomen and pelvis shows intraperitoneal fluid collection. Now s/p CT-guided paracentesis. Culture negative Monitor vital signs and labs. ID on board. Patient treated with ceftriaxone, Flagyl and fluconazole for possible intra-abdominal infection. Cultures negative so far. Status post surgery. 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 Patient is status post surgical intervention. Patient tolerated procedure well. Patient's abdominal pain has essentially resolved. Now 1 the complications is short bowel syndrome. Patient only had 4 feet of some mild bile left. This is not enough for immediate adequate absorption. Patient currently on TPN. Scheduled to have a reanastomosis of ostomy site on Tuesday or . Plan for patient to have TPN for approximately 4 to 6 months until bowel is able to heal. At that time patient will require another's procedure which is highly complicated and attempts to extend the amount of patient is bile and create better reabsorption. Even when this is complete I do not see patient improved enough to return to a viable occupation. Patient will endure chronic malnutrition with limited endurance and fatigue and potential electrolyte abnormalities that were now lateral patient in my opinion to ever gain adequate employment. Patient will be limited by his nutritional status as well as pain requirements. It is my opinion the patient would not be to adequately perform any job functions. Patient has difficulty now with ADLs and requires assistance with most ADLs. -- Dehydration: Resolved Patient well-hydrated Continue IV hydration --Acute Metabolic Encephalopathy with subsequent acute respiratory failure Resolved -- Metabolic acidosis Resolved -- ANEMIA of CD Continue to monitor hemoglobin Iron supplements -- Insomnia --Thrombocythemia Initially had thrombocytopenia and there was a concern for HIT blood test was negative Now has been thrombocythemia with platelet count up to 900s. This is likely reactive. Hematology oncology recommendations appreciated -- Severe protein calorie malnutrition cachexia : Special Investigator following January 25, 2020 I spoke to surgery myself plan is not to have the patient be on TPN forever. Plan will be to readdress the ostomy site. Allow TPN to let the bowel heal. Because patient had ischemic bowel. There was also plans to transfer patient to outpatient TPN clinic at [place]. Plan for anastomotic correction Sunday January 26, 2020 patient up walking around with physical therapy. Pain is better. Having problems at the ostomy site. States difficult to keep from draining and pulls off ostomy to Plan keshia to have revision done on possibly Tuesday. January 27, 2020. Patient in good spirits no bowel movement discussed plan with myself and Dr. Vick. Plan for revision of ostomy site potentially on Tuesday. January 28, 2020 no new changes in the p.m. chemical burn from bile at ostomy site. Requiring increased pain medications. No longer dehydrated no longer encephalopathic. 01/28: Awaiting change in ostomy site due to leaking. Continue supportive care and pain control. Discussed risk with pain meds extensively 01/29: No new complaints today except for pain which was adjusted and addressed by the surgeon 01/30: Patient was seen and evaluated this morning is going for ostomy revision today. Review of post surgical note indicates Pre-op diagnosis: necrotic jejunostomy, fascial dehiscience Post-op diagnosis: other (remaining bowel very friable.) Findings: , necrotics stoma of end jejunostomy. mucous fistula needed revision as well. all remaining bowel viable. fascial dehiscience. Procedure: Exploratory laparotomy, adhesiolysis, revision of jejunostomy /stoma, revision of mucous fistula, relocation of end jejunostomy, Anesthesia: GETA We will continue to monitor check labs in a.m. to ensure no insensible loss of electrolytes. Continue pain control. Case management for discharge planning when okay with surgeon. Patient continues on TPN at this time. 01/31: Continue supportive care. Will obtain Psych consultation for possible depression from prolonged hospitalization. Monitor developing leukocytosis. plan discussed with patient and patients sister 02/01: Per Surgery, Flagyl noted, ... no further role for surgical intervention for several months, since with the intense infllammatory reaction and the friable/ probable radiation induced changes in the remaining small intestine, and desmoplastic reaction from multiple surgeries , again reinforced not to pull on ostomy appliance as this results in worsening skin damage. Noted hypoglycemia: Will add PRN dextros. 02/02: Psych input noted, no meds at this time. Continue supportive care, BP improving some. Monitor for recurrent Hypoglycemia. Will continue to replace insensible loss. Discharge planning When ok with surgeon. Case management. 02/03: Awaiting home health arrangement for TPN,. unfortunately continues to remove ostomy bag. not sure why despite all the education that he continues to do this. Poor prognosis due to non compliance. May need electrolyte correction with the TPN, recheck labs in a.m. to ensure correction of hypokalemia 02/04. Surgery follow up notes reviewed. May have ice chips. Still has pain. Vitals stable. He needs some form of insurance - medicaid. 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 02/05. Has no fresh complaints today. Vitals reviewed. History Interval history: Patient seen and examined at bedside this morning. He has no fresh complaints today. Hospitalist Physical - Constitutional Vitals: Temp Pulse Resp BP Pulse Ox 98.4 F 103 H 18 106/65 99 02/06/20 05:50 02/06/20 05:50 02/06/20 05:50 02/06/20 05:50 02/06/20 05:50 General appearance: Present: no acute distress, cachectic - Respiratory Respiratory: bilateral: CTA - Cardiovascular Rhythm: regular Heart Sounds: Present: S1 & S2 - Extremities Extremities: No edema - Abdominal General gastrointestinal: soft, tender, other (ostomy intact) - Psychiatric Psychiatric: appropriate mood/affect - Neurologic Neurologic: CNII-XII intact Results - Labs CBC & Chem 7: 02/03/20 04:00 02/06/20 05:27 Labs: Laboratory Last Values WBC 7.8 K/mm3 (4.5-11.0) 02/03/20 04:00 RBC 2.99 M/mm3 (3.65-5.03) L 02/03/20 04:00 Hgb 8.9 gm/dl (11.8-15.2) L 02/03/20 04:00 Hgb Comment See scanned result 01/12/20 06:15 Hct 26.1 % (35.5-45.6) L D 02/03/20 04:00 MCV 87 fl (84-94) 02/03/20 04:00 MCH 30 pg (28-32) 02/03/20 04:00 MCHC 34 % (32-34) 02/03/20 04:00 RDW 15.5 % (13.2-15.2) H 02/03/20 04:00 Plt Count 250 K/mm3 (140-440) 02/03/20 04:00 Lymph % (Auto) 13.2 % (13.4-35.0) L 01/25/20 07:54 [place] % (Auto) 9.1 % (0.0-7.3) H 01/25/20 07:54 Eos % (Auto) 1.3 % (0.0-4.3) 01/25/20 07:54 Baso % (Auto) 0.2 % (0.0-1.8) 01/25/20 07:54 Lymph # (Auto) 1.2 K/mm3 (1.2-5.4) 01/25/20 07:54 Walton # (Auto) 0.8 K/mm3 (0.0-0.8) 01/25/20 07:54 Eos # (Auto) 0.1 K/mm3 (0.0-0.4) 01/25/20 07:54 Baso # (Auto) 0.0 K/mm3 (0.0-0.1) 01/25/20 07:54 Add Manual Diff Complete 01/05/20 09:17 Total Counted 100 01/05/20 09:17 Seg Neutrophils % 76.2 % (40.0-70.0) H 01/25/20 07:54 Seg Neuts % (Manual) 97.0 % (40.0-70.0) H 01/05/20 09:17 Band Neutrophils % 0 % 01/05/20 09:17 Lymphocytes % (Manual) 0 % (13.4-35.0) L 01/05/20 09:17 Reactive Lymphs % (Man) 0 % 01/05/20 09:17 Monocytes % (Manual) 2.0 % (0.0-7.3) 01/05/20 09:17 Eosinophils % (Manual) 1.0 % (0.0-4.3) 01/05/20 09:17 Basophils % (Manual) 0 % (0.0-1.8) 01/05/20 09:17 Metamyelocytes % 0 % 01/05/20 09:17 Myelocytes % 0 % 01/05/20 09:17 Promyelocytes % 0 % 01/05/20 09:17 Blast Cells % 0 % 01/05/20 09:17 Nucleated RBC % Not Reportable 01/05/20 09:17 Seg Neutrophils # 6.8 K/mm3 (1.8-7.7) 01/25/20 07:54 Seg Neutrophils # Man 11.7 K/mm3 (1.8-7.7) H 01/05/20 09:17 Band Neutrophils # 0.0 K/mm3 01/05/20 09:17 Lymphocytes # (Manual) 0.0 K/mm3 (1.2-5.4) L 01/05/20 09:17 Abs React Lymphs (Man) 0.0 K/mm3 01/05/20 09:17 Monocytes # (Manual) 0.2 K/mm3 (0.0-0.8) 01/05/20 09:17 Eosinophils # (Manual) 0.1 K/mm3 (0.0-0.4) 01/05/20 09:17 Basophils # (Manual) 0.0 K/mm3 (0.0-0.1) 01/05/20 09:17 Metamyelocytes # 0.0 K/mm3 01/05/20 09:17 Myelocytes # 0.0 K/mm3 01/05/20 09:17 Promyelocytes # 0.0 K/mm3 01/05/20 09:17 Blast Cells # 0.0 K/mm3 01/05/20 09:17 WBC Morphology Not Reportable 01/05/20 09:17 Hypersegmented Neuts Not Reportable 01/05/20 09:17 Hyposegmented Neuts Not Reportable 01/05/20 09:17 Hypogranular Neuts Not Reportable 01/05/20 09:17 Smudge Cells Not Reportable 01/05/20 09:17 Toxic Granulation Not Reportable 01/05/20 09:17 Toxic Vacuolation Not Reportable 01/05/20 09:17 Dohle Bodies Not Reportable 01/05/20 09:17 Pelger-Huet Anomaly Not Reportable 01/05/20 09:17 Anuradha Rods Not Reportable 01/05/20 09:17 Platelet Estimate Consistent w auto 01/05/20 09:17 Clumped Platelets Not Reportable 01/05/20 09:17 Plt Clumps, EDTA Not Reportable 01/05/20 09:17 Large Platelets Not Reportable 01/05/20 09:17 Giant Platelets Not Reportable 01/05/20 09:17 Platelet Satelliting Not Reportable 01/05/20 09:17 Plt Morphology Comment Not Reportable 01/05/20 09:17 RBC Morphology Not Reportable 01/05/20 09:17 Dimorphic RBCs Not Reportable 01/05/20 09:17 Polychromasia Not Reportable 01/05/20 09:17 Hypochromasia Not Reportable 01/05/20 09:17 Poikilocytosis Not Reportable 01/05/20 09:17 Anisocytosis Few 01/05/20 09:17 Microcytosis Not Reportable 01/05/20 09:17 Macrocytosis Not Reportable 01/05/20 09:17 Spherocytes Not Reportable 01/05/20 09:17 Pappenheimer Bodies Not Reportable 01/05/20 09:17 Sickle Cells Not Reportable 01/05/20 09:17 Target Cells 1+ 01/05/20 09:17 Tear Drop Cells Not Reportable 01/05/20 09:17 Ovalocytes Not Reportable 01/05/20 09:17 Helmet Cells Not Reportable 01/05/20 09:17 [place] Bodies Not Reportable 01/05/20 09:17 [place] Rings Not Reportable 01/05/20 09:17 Kaylie Cells Not Reportable 01/05/20 09:17 Bite Cells Not Reportable 01/05/20 09:17 Crenated Cell Not Reportable 01/05/20 09:17 Elliptocytes Not Reportable 01/05/20 09:17 Acanthocytes (Spur) Not Reportable 01/05/20 09:17 Rouleaux Not Reportable 01/05/20 09:17 Hemoglobin C Crystals Not Reportable 01/05/20 09:17 Schistocytes Not Reportable 01/05/20 09:17 Malaria parasites Not Reportable 01/05/20 09:17 Sickle Cell Solubility See scanned result 01/12/20 06:15 Hemoglobin A See scanned result 01/12/20 06:15 Hemoglobin A2 See scanned result 01/12/20 06:15 Hemoglobin A2 Prime See scanned result 01/12/20 06:15 Hemoglobin C See scanned result 01/12/20 06:15 Hemoglobin D See scanned result 01/12/20 06:15 Hemoglobin E See scanned result 01/12/20 06:15 Hgb F Diffential Stain See scanned result 01/12/20 06:15 Hemoglobin F Quant See scanned result 01/12/20 06:15 Hemoglobin G See scanned result 01/12/20 06:15 Hemoglobin S See scanned result 01/12/20 06:15 Hemoglobin O-[place] See scanned result 01/12/20 06:15 Hemoglobin [place] See scanned result 01/12/20 06:15 Hemoglobin Prema See scanned result 01/12/20 06:15 Variant Hemoglobin See scanned result 01/12/20 06:15 Abnorm Hgb IEF Confirm See scanned result 01/12/20 06:15 Hemoglobin Interpret See scanned result 01/12/20 06:15 Hemoglobinopathy Note See scanned result 01/12/20 06:15 Christ Bodies Not Reportable 01/05/20 09:17 Hem Pathologist Commnt No 01/05/20 09:17 PT 14.8 Sec. (12.2-14.9) 01/08/20 19:18 INR 1.14 (0.87-1.13) H 01/08/20 19:18 APTT 42.2 Sec. (24.2-36.6) H 12/30/19 22:30 Heparin Anti-Xa, Unfract Negative (Negative) 01/03/20 11:08 ABG pH 7.456 pH Units (7.350-7.450) H 01/01/20 05:15 POC ABG pCO2 34.7 mmHg (32.0-48.0) 12/31/19 04:03 ABG pCO2 34.1 mm Hg 01/01/20 05:15 POC ABG pO2 95.1 mmHg (83-108) 12/31/19 04:03 ABG pO2 85.3 mm Hg (80.0-90.0) 01/01/20 05:15 POC ABG HCO3 20.2 12/31/19 04:03 ABG HCO3 23.5 mmol/L (20.0-26.0) 01/01/20 05:15 ABG O2 Saturation 97.1 % (95.0-99.0) 01/01/20 05:15 ABG O2 Content 9.4 (0.0-44) 01/01/20 05:15 POC ABG Base Excess -4.2 12/31/19 04:03 ABG Base Excess -0.3 mmol/L (-2.0-3.0) 01/01/20 05:15 ABG Hemoglobin 6.9 gm/dl (14.0-18.0) L 01/01/20 05:15 ABG Carboxyhemoglobin 1.4 % (0.0-5.0) 01/01/20 05:15 ABG Methemoglobin 0.7 % (0.0-1.5) 01/01/20 05:15 Oxyhemoglobin 95.0 % (95.0-99.0) 01/01/20 05:15 FiO2 35 % 01/01/20 05:15 Sodium 140 mmol/L (137-145) 02/06/20 05:27 Potassium 3.9 mmol/L (3.6-5.0) 02/06/20 05:27 Chloride 101.3 mmol/L (98-107) 02/06/20 05:27 Carbon Dioxide 31 mmol/L (22-30) H D 02/06/20 05:27 Anion Gap 12 mmol/L 02/06/20 05:27 BUN 12 mg/dL (9-20) 02/06/20 05:27 Creatinine 0.5 mg/dL (0.8-1.3) L 02/06/20 05:27 Estimated GFR > 60 ml/min 02/06/20 05:27 BUN/Creatinine Ratio 24 % 02/06/20 05:27 Glucose 108 mg/dL (75-100) H 02/06/20 05:27 POC Glucose 127 mg/dL (70-105) H 02/06/20 06:10 Lactic Acid 1.00 mmol/L (0.7-2.0) 01/05/20 06:35 Calcium 8.4 mg/dL (8.4-10.2) 02/06/20 05:27 Phosphorus 3.40 mg/dL (2.5-4.5) 02/05/20 05:21 Magnesium 1.70 mg/dL (1.7-2.3) 02/06/20 05:27 Iron 21 ug/dL (49-181) L 01/13/20 05:00 TIBC 179 mcg/dL (250-450) L 01/13/20 05:00 Total Bilirubin 0.80 mg/dL (0.1-1.2) 02/03/20 04:00 Direct Bilirubin 1.3 mg/dL (0-0.2) H 01/08/20 08:30 Indirect Bilirubin 1.0 mg/dL 01/08/20 08:30 AST 17 units/L (5-40) 02/03/20 04:00 ALT 36 units/L (7-56) 02/03/20 04:00 Alkaline Phosphatase 135 units/L (35-129) H 02/03/20 04:00 Total Protein 4.5 g/dL (6.3-8.2) L 02/03/20 04:00 Albumin 2.2 g/dL (3.9-5) L 02/03/20 04:00 Albumin/Globulin Ratio 1.0 % 02/03/20 04:00 Triglycerides 58 mg/dL (2-149) 02/06/20 05:27 Lipase 9 units/L (13-60) L 12/29/19 14:29 Serotonin Release Assay See scanned result 01/03/20 11:08 Urine Color Yellow (Yellow) 12/27/19 Unknown Urine Turbidity Clear (Clear) 12/27/19 Unknown Urine pH 5.0 (5.0-7.0) 12/27/19 Unknown Ur Specific [place] > 1.059 (1.003-1.030) H 12/27/19 Unknown Urine Protein 30 mg/dl mg/dL (Negative) 12/27/19 Unknown Urine Glucose (UA) Neg mg/dL (Negative) 12/27/19 Unknown Urine Ketones 20 mg/dL (Negative) 12/27/19 Unknown Urine Blood Mod (Negative) 12/27/19 Unknown Urine Nitrite Neg (Negative) 12/27/19 Unknown Urine Bilirubin Neg (Negative) 12/27/19 Unknown Urine Urobilinogen < 2.0 mg/dL (<2.0) 12/27/19 Unknown Ur Leukocyte Esterase Neg (Negative) 12/27/19 Unknown Urine WBC (Auto) 2.0 /HPF (0.0-6.0) 12/27/19 Unknown Urine RBC (Auto) 28.0 /HPF (0.0-6.0) 12/27/19 Unknown U Epithel Cells (Auto) < 1.0 /HPF (0-13.0) 12/27/19 Unknown Urine Mucus 3+ /HPF 12/27/19 Unknown Fluid Type Paracentesis 01/09/20 Unknown Fluid Color Fauzia 01/09/20 Unknown Fluid Appearance Turbid 01/09/20 Unknown Fluid WBC 3225 /mm3 01/09/20 Unknown Fluid RBC 325 /mm3 01/09/20 Unknown Fluid Seg Neutrophils 87.0 % 01/09/20 Unknown Fluid Lymphocytes 10.0 % 01/09/20 Unknown Fluid Reactive Lymphs 0 % 01/09/20 Unknown Fluid Monocytes 3.0 % 01/09/20 Unknown Fluid Eosinophils 0 % 01/09/20 Unknown Fluid Basophils 0 % 01/09/20 Unknown Heparin-induced Plt Ab Negative (Negative) 01/03/20 11:08 UF Heparin High Dose 4 % Release 01/03/20 11:08 SU UFH Low Dose 0.1 9 % Release 01/03/20 11:08 SU UFH Low Dose 0.5 4 % Release 01/03/20 11:08 Blood Type B POSITIVE 01/31/20 06:19 Antibody Screen Negative 01/31/20 06:19 Crossmatch See Detail 01/31/20 06:19 Azul/IV: Voiding Method Urinal IV Catheter Type [Left Forearm INT / Saline Lock ] IV Catheter Type [Right Chest] IVAD / Port IV Catheter Type [Left Hand] INT / Saline Lock IV Catheter Type [Left Wrist] Peripheral IV IV Catheter Type [Right Peripheral IV Forearm] IV Catheter Type [Right Upper PICC Line arm] IV Catheter Type [Right INT / Saline Lock Antecubital] Active Medications - Current Medications Current Medications: Generic Name Dose Route Start Last Admin Trade Name Freq PRN Reason Stop Dose Admin Acetaminophen 650 mg 02/02/20 02:50 02/02/20 02:53 Tylenol PO 650 mg Q6H PRN Administration Fever >101 Hydrocodone Bitart/Acetaminophen 7.5 mg 01/20/20 10:00 02/05/20 06:55 Hydrocodone/Apap 7.5-325 PO 7.5 mg Q6HR PRN Administration Pain, Moderate (4-6) Dextrose 50 ml 02/02/20 11:24 D50w (25gm) Syringe IV Q30MIN PRN Hypoglycemia Protocol Hydromorphone HCl 1 mg 01/31/20 14:38 02/06/20 10:28 Dilaudid IV 1 mg Q4H PRN Administration Pain , Severe (7-10) Fat Emulsion Intravenous 250 mls @ 21 mls/hr 01/28/20 20:00 01/28/20 20:10 Intralipid 20% IV 01/29/20 07:59 21 mls/hr [email or web address] SUSAN Administration Amino Acids/Electrolytes/Dextrose 3,000 mls @ 0 mls/hr 01/28/20 20:00 01/28/20 20:08 Tpn Adult IV 01/29/20 08:00 275 mls/hr [email or web address] SUSAN Administration Protocol As Directed Nicotine 21 mg 12/31/19 10:00 02/06/20 10:28 Habitrol TD 21 mg QDAY SUSAN Administration Ondansetron HCl 4 mg 01/31/20 16:00 02/01/20 14:48 Zofran IV 4 mg Q8H PRN Administration Nausea And Vomiting Pantoprazole Sodium 40 mg 01/17/20 10:00 02/06/20 10:28 Protonix IV 40 mg QDAY SUSAN Administration Sodium Chloride 10 ml 12/28/19 10:00 02/06/20 10:29 Sodium Chloride Flush Syringe 10 Ml IV 10 ml BID SUSAN Administration Nutrition/Malnutrition Assess - Dietary Evaluation Nutrition/Malnutrition Findings: Nutrition Notes Start: 12/30/19 08:57 Freq: Status: Active Protocol: Document 02/06/20 11:33 AL (Rec: 02/06/20 11:43 AL [id number]) Co-Sign 02/06/20 11:33 MK Nutrition Notes Initial or Follow up Reassessment Current Diagnosis Malnutrition Other Pertinent Diagnosis short gut syndrome s/p hemicolectomy, R nephrectomy, anemia Current Diet 12h Cyclic CPN at 125/275/ 125ml/hr Labs/Tests Reviewed Pertinent Medications Reviewed Height 5 ft 8 in Weight 62.5 kg [place] Body Weight (kg) 70.00 BMI 20.9 Weight Status Appropriate Subjective/Other Information 12 hour cyclic CPN day 37. No new changes. CPN is being tolerated well. 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 No Is Patient Ambulatory and/or Out of Bed Yes REE-([place]. Jeor-ambulatory/OOB) [ [id number] [id number]] Calculation Used for Recommendations [place] Jeor Additional Notes Protein needs 78-94g (1.25-1. 5g/kg) Fluid needs 1ml/kcal Nutrition Intervention Change Diet Order: Continue CPN Nutrition Support: Continue 12 hr cyclic CPN at 125/275/125 ml/hr. MVI Osmolality 1249. Kcal 2,240 Protein (gm) 95 Carbohydrates (gm) 400 Fat (gm) 50 Fluid (mL) 3,250 Fiber (gm) 0 Goal #1 Meet at least 75% of energy and protein needs via CPN Anticipated Discharge Needs: 12 hour Cyclic TPN Follow-Up By: 02/07/20 Additional Comments Labs in AM: BMP, Mag, Phos
--- NOTE | 2020-02-06 15:26 | Event Note ---
Date: 02/06/20 POD 33/32/331/6 Afebrile off antibiotics, VSS, apparently ostomy holding up and not leaking, about 620 cc out ostomy (includes mucous fistula and jejunotomy), will advance diet to sips of liquids , rock candy, and see how he tolerates it, begin to wean iv narcotics tomorrow, I had a long discussion yesterday with patient about the long and difficult recovery process with him and answered of his questions to the best of my ability. I also discussed the case with the Ostomy nurse. he seems to be making a little progress and hopefully it will continue. Continue other measures which are in place.
[2020-02-06] MEDS ORDERED: TOTAL PARENTERAL NUTRITION 3,000 ML IV SCH (20:00)
[2020-02-06] MEDS ORDERED: FAT EMULSIONS 20% 250 ML IV SCH (20:00)
[2020-02-06] MEDS: HYDROcodone/APAP 7.5-325MG-15ML ORAL LIQD PO PRN (21:00)
[2020-02-07] MEDS: HYDROmorphone 1 MG/1 ML INJ IV PRN ×5 (04:07→20:07)
[2020-02-07 07:07] LABS: Blood Urea Nitrogen 14 mg/dL (9-20); Calcium 8.4 mg/dL (8.4-10.2); Hemolysis Index 2
[2020-02-07 07:12] LABS: BUN/Creatinine Ratio 35
[2020-02-07] MEDS: NICOTINE 21 MG/24 HR PATCH TD SCH ×2 (07:57→12:45)
[2020-02-07] MEDS: PANTOPRAZOLE 40 MG INJ IV SCH ×2 (07:58→12:45)
--- NOTE | 2020-02-07 11:50 | Event Note ---
Date: 02/07/20 POD 34/33/32/7 VSS AF 1120 cc out ostomy, labs OK, will decrease iv dilaudid and wean off it, get dietary on board to experiment with adv diet as tolerated as long as colostomy bag is competent, and patient does not dramatically increase ostomy output.
--- NOTE | 2020-02-07 12:03 | Event Note ---
Date: 02/07/20 I spoke with Photography Instructor by phone to begin experimenting with his diet to see if he will tolerate some oral feeding to improve his gut absorbtion, this will work unless ostomy becomes incontinent, or he looses to much volume with advancing his diet, will only be done as tolerated.
--- NOTE | 2020-02-07 13:08 | Progress Note ---
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 Patient states for the past 2 days he has had some abdominal distention in the right lower quadrant and crampy 10 out of 10 pain. He has had multiple episodes of nausea and vomiting. Denies fever chills cough cold or congestion. On December 30, [address] showed patient to have free air in colon. Surgical intervention was required. Patient had surgery had partial hemicolectomy during exploratory laparotomy was subsequently intubated and transferred to the intensive care unit. On December 31, 2019 patient returned to the OR for an additional surgery. After initial extubation. Patient was not follow commands agitated unable to really protect airways and therefore was reintubated. -- Nausea/vomiting- RESOLVED likely from narcotics induced, limit use of narcotic, reglan as needed Ct abd/pelvis showed no obstruction, distended stomach General surgery recommended to stop all narcotics, strict n.p.o. except ice chips -- Small bowel obstruction Status post exploratory lap x3. per surgery note: Some ischemic bowel, S/P Hemicolectomy, Fistula washed out. CT abdomen and pelvis shows intraperitoneal fluid collection. Now s/p CT-guided paracentesis. Culture negative Monitor vital signs and labs. ID on board. Patient treated with ceftriaxone, Flagyl and fluconazole for possible intra-abdominal infection. Cultures negative so far. Status post surgery. 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 Patient is status post surgical intervention. Patient tolerated procedure well. Patient's abdominal pain has essentially resolved. Now 1 the complications is short bowel syndrome. Patient only had 4 feet of some mild bile left. This is not enough for immediate adequate absorption. Patient currently on TPN. Scheduled to have a reanastomosis of ostomy site on Tuesday or . Plan for patient to have TPN for approximately 4 to 6 months until bowel is able to heal. At that time patient will require another's procedure which is highly complicated and attempts to extend the amount of patient is bile and create better reabsorption. Even when this is complete I do not see patient improved enough to return to a viable occupation. Patient will endure chronic malnutrition with limited endurance and fatigue and potential electrolyte abnormalities that were now lateral patient in my opinion to ever gain adequate employment. Patient will be limited by his nutritional status as well as pain requirements. It is my opinion the patient would not be to adequately perform any job functions. Patient has difficulty now with ADLs and requires assistance with most ADLs. -- Dehydration: Resolved Patient well-hydrated Continue IV hydration --Acute Metabolic Encephalopathy with subsequent acute respiratory failure Resolved -- Metabolic acidosis Resolved -- ANEMIA of CD Continue to monitor hemoglobin Iron supplements -- Insomnia --Thrombocythemia Initially had thrombocytopenia and there was a concern for HIT blood test was negative Now has been thrombocythemia with platelet count up to 900s. This is likely reactive. Hematology oncology recommendations appreciated -- Severe protein calorie malnutrition cachexia : Lace Inspector following January 25, 2020 I spoke to surgery myself plan is not to have the patient be on TPN forever. Plan will be to readdress the ostomy site. Allow TPN to let the bowel heal. Because patient had ischemic bowel. There was also plans to transfer patient to outpatient TPN clinic at [place]. Plan for anastomotic correction Sunday January 26, 2020 patient up walking around with physical therapy. Pain is better. Having problems at the ostomy site. States difficult to keep from draining and pulls off ostomy to Plan keshia to have revision done on possibly Tuesday. January 27, 2020. Patient in good spirits no bowel movement discussed plan with myself and Dr. Vick. Plan for revision of ostomy site potentially on Tuesday. January 28, 2020 no new changes in the p.m. chemical burn from bile at ostomy site. Requiring increased pain medications. No longer dehydrated no longer encephalopathic. 01/28: Awaiting change in ostomy site due to leaking. Continue supportive care and pain control. Discussed risk with pain meds extensively 01/29: No new complaints today except for pain which was adjusted and addressed by the surgeon 01/30: Patient was seen and evaluated this morning is going for ostomy revision today. Review of post surgical note indicates Pre-op diagnosis: necrotic jejunostomy, fascial dehiscience Post-op diagnosis: other (remaining bowel very friable.) Findings: , necrotics stoma of end jejunostomy. mucous fistula needed revision as well. all remaining bowel viable. fascial dehiscience. Procedure: Exploratory laparotomy, adhesiolysis, revision of jejunostomy /stoma, revision of mucous fistula, relocation of end jejunostomy, Anesthesia: GETA We will continue to monitor check labs in a.m. to ensure no insensible loss of electrolytes. Continue pain control. Case management for discharge planning when okay with surgeon. Patient continues on TPN at this time. 01/31: Continue supportive care. Will obtain Psych consultation for possible depression from prolonged hospitalization. Monitor developing leukocytosis. plan discussed with patient and patients sister 02/01: Per Surgery, Flagyl noted, ... no further role for surgical intervention for several months, since with the intense infllammatory reaction and the friable/ probable radiation induced changes in the remaining small intestine, and desmoplastic reaction from multiple surgeries , again reinforced not to pull on ostomy appliance as this results in worsening skin damage. Noted hypoglycemia: Will add PRN dextros. 02/02: Psych input noted, no meds at this time. Continue supportive care, BP improving some. Monitor for recurrent Hypoglycemia. Will continue to replace insensible loss. Discharge planning When ok with surgeon. Case management. 02/03: Awaiting home health arrangement for TPN,. unfortunately continues to remove ostomy bag. not sure why despite all the education that he continues to do this. Poor prognosis due to non compliance. May need electrolyte correction with the TPN, recheck labs in a.m. to ensure correction of hypokalemia 02/04. Surgery follow up notes reviewed. May have ice chips. Still has pain. Vitals stable. He needs some form of insurance - medicaid. Will discuss with complex case manager. 02/05. Has no fresh complaints today. Vitals reviewed. 02/06. Surgery notes reviewed. patient will be started on a diet by patient relations representative to see if he tolerates. History Interval history: Patient seen and examined at bedside this morning. Sleepy this morning Hospitalist Physical - Constitutional Vitals: Temp Pulse Resp BP Pulse Ox 98.4 F 102 H 18 114/72 99 02/07/20 11:20 02/07/20 11:20 02/07/20 11:20 02/07/20 11:02/07/20 11:20 General appearance: Present: cachectic - Respiratory Respiratory: bilateral: CTA - Cardiovascular Heart Sounds: Present: S1 & S2 - Extremities Extremities: No edema - Abdominal General gastrointestinal: soft, non-distended, normal bowel sounds, other (Ostomy in place ) - Psychiatric Psychiatric: appropriate mood/affect - Neurologic Neurologic: CNII-XII intact Results - Labs CBC & Chem 7: 02/03/20 04:00 02/07/20 05:45 Labs: Laboratory Last Values WBC 7.8 K/mm3 (4.5-11.0) 02/03/20 04:00 RBC 2.99 M/mm3 (3.65-5.03) L 02/03/20 04:00 Hgb 8.9 gm/dl (11.8-15.2) L 02/03/20 04:00 Hgb Comment See scanned result 01/12/20 06:15 Hct 26.1 % (35.5-45.6) L D 02/03/20 04:00 MCV 87 fl (84-94) 02/03/20 04:00 MCH 30 pg (28-32) 02/03/20 04:00 MCHC 34 % (32-34) 02/03/20 04:00 RDW 15.5 % (13.2-15.2) H 02/03/20 04:00 Plt Count 250 K/mm3 (140-440) 02/03/20 04:00 Lymph % (Auto) 13.2 % (13.4-35.0) L 01/25/20 07:54 [place] % (Auto) 9.1 % (0.0-7.3) H 01/25/20 07:54 Eos % (Auto) 1.3 % (0.0-4.3) 01/25/20 07:54 Baso % (Auto) 0.2 % (0.0-1.8) 01/25/20 07:54 Lymph # (Auto) 1.2 K/mm3 (1.2-5.4) 01/25/20 07:54 [place] # (Auto) 0.8 K/mm3 (0.0-0.8) 01/25/20 07:54 Eos # (Auto) 0.1 K/mm3 (0.0-0.4) 01/25/20 07:54 Baso # (Auto) 0.0 K/mm3 (0.0-0.1) 01/25/20 07:54 Add Manual Diff Complete 01/05/20 09:17 Total Counted 100 01/05/20 09:17 Seg Neutrophils % 76.2 % (40.0-70.0) H 01/25/20 07:54 Seg Neuts % (Manual) 97.0 % (40.0-70.0) H 01/05/20 09:17 Band Neutrophils % 0 % 01/05/20 09:17 Lymphocytes % (Manual) 0 % (13.4-35.0) L 01/05/20 09:17 Reactive Lymphs % (Man) 0 % 01/05/20 09:17 Monocytes % (Manual) 2.0 % (0.0-7.3) 01/05/20 09:17 Eosinophils % (Manual) 1.0 % (0.0-4.3) 01/05/20 09:17 Basophils % (Manual) 0 % (0.0-1.8) 01/05/20 09:17 Metamyelocytes % 0 % 01/05/20 09:17 Myelocytes % 0 % 01/05/20 09:17 Promyelocytes % 0 % 01/05/20 09:17 Blast Cells % 0 % 01/05/20 09:17 Nucleated RBC % Not Reportable 01/05/20 09:17 Seg Neutrophils # 6.8 K/mm3 (1.8-7.7) 01/25/20 07:54 Seg Neutrophils # Man 11.7 K/mm3 (1.8-7.7) H 01/05/20 09:17 Band Neutrophils # 0.0 K/mm3 01/05/20 09:17 Lymphocytes # (Manual) 0.0 K/mm3 (1.2-5.4) L 01/05/20 09:17 Abs React Lymphs (Man) 0.0 K/mm3 01/05/20 09:17 Monocytes # (Manual) 0.2 K/mm3 (0.0-0.8) 01/05/20 09:17 Eosinophils # (Manual) 0.1 K/mm3 (0.0-0.4) 01/05/20 09:17 Basophils # (Manual) 0.0 K/mm3 (0.0-0.1) 01/05/20 09:17 Metamyelocytes # 0.0 K/mm3 01/05/20 09:17 Myelocytes # 0.0 K/mm3 01/05/20 09:17 Promyelocytes # 0.0 K/mm3 01/05/20 09:17 Blast Cells # 0.0 K/mm3 01/05/20 09:17 WBC Morphology Not Reportable 01/05/20 09:17 Hypersegmented Neuts Not Reportable 01/05/20 09:17 Hyposegmented Neuts Not Reportable 01/05/20 09:17 Hypogranular Neuts Not Reportable 01/05/20 09:17 Smudge Cells Not Reportable 01/05/20 09:17 Toxic Granulation Not Reportable 01/05/20 09:17 Toxic Vacuolation Not Reportable 01/05/20 09:17 Dohle Bodies Not Reportable 01/05/20 09:17 Pelger-Huet Anomaly Not Reportable 01/05/20 09:17 Anuradha Rods Not Reportable 01/05/20 09:17 Platelet Estimate Consistent w auto 01/05/20 09:17 Clumped Platelets Not Reportable 01/05/20 09:17 Plt Clumps, EDTA Not Reportable 01/05/20 09:17 Large Platelets Not Reportable 01/05/20 09:17 Giant Platelets Not Reportable 01/05/20 09:17 Platelet Satelliting Not Reportable 01/05/20 09:17 Plt Morphology Comment Not Reportable 01/05/20 09:17 RBC Morphology Not Reportable 01/05/20 09:17 Dimorphic RBCs Not Reportable 01/05/20 09:17 Polychromasia Not Reportable 01/05/20 09:17 Hypochromasia Not Reportable 01/05/20 09:17 Poikilocytosis Not Reportable 01/05/20 09:17 Anisocytosis Few 01/05/20 09:17 Microcytosis Not Reportable 01/05/20 09:17 Macrocytosis Not Reportable 01/05/20 09:17 Spherocytes Not Reportable 01/05/20 09:17 Pappenheimer Bodies Not Reportable 01/05/20 09:17 Sickle Cells Not Reportable 01/05/20 09:17 Target Cells 1+ 01/05/20 09:17 Tear Drop Cells Not Reportable 01/05/20 09:17 Ovalocytes Not Reportable 01/05/20 09:17 Helmet Cells Not Reportable 01/05/20 09:17 Aleman-Blessing Bodies Not Reportable 01/05/20 09:17 [place] Rings Not Reportable 01/05/20 09:17 [place] Cells Not Reportable 01/05/20 09:17 Bite Cells Not Reportable 01/05/20 09:17 Crenated Cell Not Reportable 01/05/20 09:17 Elliptocytes Not Reportable 01/05/20 09:17 Acanthocytes (Spur) Not Reportable 01/05/20 09:17 Rouleaux Not Reportable 01/05/20 09:17 Hemoglobin C Crystals Not Reportable 01/05/20 09:17 Schistocytes Not Reportable 01/05/20 09:17 Malaria parasites Not Reportable 01/05/20 09:17 Sickle Cell Solubility See scanned result 01/12/20 06:15 Hemoglobin A See scanned result 01/12/20 06:15 Hemoglobin A2 See scanned result 01/12/20 06:15 Hemoglobin A2 Prime See scanned result 01/12/20 06:15 Hemoglobin C See scanned result 01/12/20 06:15 Hemoglobin D See scanned result 01/12/20 06:15 Hemoglobin E See scanned result 01/12/20 06:15 Hgb F Diffential Stain See scanned result 01/12/20 06:15 Hemoglobin F Quant See scanned result 01/12/20 06:15 Hemoglobin G See scanned result 01/12/20 06:15 Hemoglobin S See scanned result 01/12/20 06:15 Hemoglobin O-Brillion See scanned result 01/12/20 06:15 Hemoglobin [place] See scanned result 01/12/20 06:15 Hemoglobin Prema See scanned result 01/12/20 06:15 Variant Hemoglobin See scanned result 01/12/20 06:15 Abnorm Hgb IEF Confirm See scanned result 01/12/20 06:15 Hemoglobin Interpret See scanned result 01/12/20 06:15 Hemoglobinopathy Note See scanned result 01/12/20 06:15 Christ Bodies Not Reportable 01/05/20 09:17 Hem Pathologist Commnt No 01/05/20 09:17 PT 14.8 Sec. (12.2-14.9) 01/08/20 19:18 INR 1.14 (0.87-1.13) H 01/08/20 19:18 APTT 42.2 Sec. (24.2-36.6) H 12/30/19 22:30 Heparin Anti-Xa, Unfract Negative (Negative) 01/03/20 11:08 ABG pH 7.456 pH Units (7.350-7.450) H 01/01/20 05:15 POC ABG pCO2 34.7 mmHg (32.0-48.0) 12/31/19 04:03 ABG pCO2 34.1 mm Hg 01/01/20 05:15 POC ABG pO2 95.1 mmHg (83-108) 12/31/19 04:03 ABG pO2 85.3 mm Hg (80.0-90.0) 01/01/20 05:15 POC ABG HCO3 20.2 12/31/19 04:03 ABG HCO3 23.5 mmol/L (20.0-26.0) 01/01/20 05:15 ABG O2 Saturation 97.1 % (95.0-99.0) 01/01/20 05:15 ABG O2 Content 9.4 (0.0-44) 01/01/20 05:15 POC ABG Base Excess -4.2 12/31/19 04:03 ABG Base Excess -0.3 mmol/L (-2.0-3.0) 01/01/20 05:15 ABG Hemoglobin 6.9 gm/dl (14.0-18.0) L 01/01/20 05:15 ABG Carboxyhemoglobin 1.4 % (0.0-5.0) 01/01/20 05:15 ABG Methemoglobin 0.7 % (0.0-1.5) 01/01/20 05:15 Oxyhemoglobin 95.0 % (95.0-99.0) 01/01/20 05:15 FiO2 35 % 01/01/20 05:15 Sodium 138 mmol/L (137-145) 02/07/20 05:45 Potassium 3.9 mmol/L (3.6-5.0) 02/07/20 05:45 Chloride 100.1 mmol/L (98-107) 02/07/20 05:45 Carbon Dioxide 29 mmol/L (22-30) 02/07/20 05:45 Anion Gap 13 mmol/L 02/07/20 05:45 BUN 14 mg/dL (9-20) 02/07/20 05:45 Creatinine 0.4 mg/dL (0.8-1.3) L 02/07/20 05:45 Estimated GFR > 60 ml/min 02/07/20 05:45 BUN/Creatinine Ratio 35 % 02/07/20 05:45 Glucose 159 mg/dL (75-100) H 02/07/20 05:45 POC Glucose 127 mg/dL (70-105) H 02/06/20 06:10 Lactic Acid 1.00 mmol/L (0.7-2.0) 01/05/20 06:35 Calcium 8.4 mg/dL (8.4-10.2) 02/07/20 05:45 Phosphorus 3.70 mg/dL (2.5-4.5) 02/07/20 05:45 Magnesium 1.80 mg/dL (1.7-2.3) 02/07/20 05:45 Iron 21 ug/dL (49-181) L 01/13/20 05:00 TIBC 179 mcg/dL (250-450) L 01/13/20 05:00 Total Bilirubin 0.80 mg/dL (0.1-1.2) 02/03/20 04:00 Direct Bilirubin 1.3 mg/dL (0-0.2) H 01/08/20 08:30 Indirect Bilirubin 1.0 mg/dL 01/08/20 08:30 AST 17 units/L (5-40) 02/03/20 04:00 ALT 36 units/L (7-56) 02/03/20 04:00 Alkaline Phosphatase 135 units/L (35-129) H 02/03/20 04:00 Total Protein 4.5 g/dL (6.3-8.2) L 02/03/20 04:00 Albumin 2.2 g/dL (3.9-5) L 02/03/20 04:00 Albumin/Globulin Ratio 1.0 % 02/03/20 04:00 Triglycerides 58 mg/dL (2-149) 02/06/20 05:27 Lipase 9 units/L (13-60) L 12/29/19 14:29 Serotonin Release Assay See scanned result 01/03/20 11:08 Urine Color Yellow (Yellow) 12/27/19 Unknown Urine Turbidity Clear (Clear) 12/27/19 Unknown Urine pH 5.0 (5.0-7.0) 12/27/19 Unknown Ur Specific [place] > 1.059 (1.003-1.030) H 12/27/19 Unknown Urine Protein 30 mg/dl mg/dL (Negative) 12/27/19 Unknown Urine Glucose (UA) Neg mg/dL (Negative) 12/27/19 Unknown Urine Ketones 20 mg/dL (Negative) 12/27/19 Unknown Urine Blood Mod (Negative) 12/27/19 Unknown Urine Nitrite Neg (Negative) 12/27/19 Unknown Urine Bilirubin Neg (Negative) 12/27/19 Unknown Urine Urobilinogen < 2.0 mg/dL (<2.0) 12/27/19 Unknown Ur Leukocyte Esterase Neg (Negative) 12/27/19 Unknown Urine WBC (Auto) 2.0 /HPF (0.0-6.0) 12/27/19 Unknown Urine RBC (Auto) 28.0 /HPF (0.0-6.0) 12/27/19 Unknown U Epithel Cells (Auto) < 1.0 /HPF (0-13.0) 12/27/19 Unknown Urine Mucus 3+ /HPF 12/27/19 Unknown Fluid Type Paracentesis 01/09/20 Unknown Fluid Color Fauzia 01/09/20 Unknown Fluid Appearance Turbid 01/09/20 Unknown Fluid WBC 3225 /mm3 01/09/20 Unknown Fluid RBC 325 /mm3 01/09/20 Unknown Fluid Seg Neutrophils 87.0 % 01/09/20 Unknown Fluid Lymphocytes 10.0 % 01/09/20 Unknown Fluid Reactive Lymphs 0 % 01/09/20 Unknown Fluid Monocytes 3.0 % 01/09/20 Unknown Fluid Eosinophils 0 % 01/09/20 Unknown Fluid Basophils 0 % 01/09/20 Unknown Heparin-induced Plt Ab Negative (Negative) 01/03/20 11:08 UF Heparin High Dose 4 % Release 01/03/20 11:08 SU UFH Low Dose 0.1 9 % Release 01/03/20 11:08 SU UFH Low Dose 0.5 4 % Release 01/03/20 11:08 Blood Type B POSITIVE 01/31/20 06:19 Antibody Screen Negative 01/31/20 06:19 Crossmatch See Detail 01/31/20 06:19 Azul/IV: Voiding Method Urinal IV Catheter Type [Left Forearm INT / Saline Lock ] IV Catheter Type [Right Chest] IVAD / Port IV Catheter Type [Left Hand] INT / Saline Lock IV Catheter Type [Left Wrist] Peripheral IV IV Catheter Type [Right Peripheral IV Forearm] IV Catheter Type [Right Upper PICC Line arm] IV Catheter Type [Right INT / Saline Lock Antecubital] Active Medications - Current Medications Current Medications: Generic Name Dose Route Start Last Admin Trade Name Freq PRN Reason Stop Dose Admin Acetaminophen 650 mg 02/02/20 02:50 02/02/20 02:53 Tylenol PO 650 mg Q6H PRN Administration Fever >101 Hydrocodone Bitart/Acetaminophen 7.5 mg 01/20/20 10:00 02/06/20 21:00 Hydrocodone/Apap 7.5-325 PO 7.5 mg Q6HR PRN Administration Pain, Moderate (4-6) Dextrose 50 ml 02/02/20 11:24 D50w (25gm) Syringe IV Q30MIN PRN Hypoglycemia Protocol Hydromorphone HCl 0.5 mg 02/07/20 11:53 02/07/20 12:11 Dilaudid IV 0.5 mg Q4H PRN Administration Pain , Severe (7-10) Fat Emulsion Intravenous 250 mls @ 21 mls/hr 01/28/20 20:00 01/28/20 20:10 Intralipid 20% IV 01/29/20 07:59 21 mls/hr [email or web address] [facility] Administration Amino Acids/Electrolytes/Dextrose 3,000 mls @ 0 mls/hr 01/28/20 20:00 01/28/20 20:08 Tpn Adult IV 01/29/20 08:00 275 mls/hr [email or web address] [facility] Administration Protocol As Directed Amino Acids/Electrolytes/Dextrose 3,000 mls @ 0 mls/hr 02/07/20 20:00 Tpn Adult IV 02/08/20 08:01 [email or web address] [facility] Protocol As Directed Nicotine 21 mg 12/31/19 10:00 02/07/20 12:45 Habitrol TD Not Given QDAY [facility] Ondansetron HCl 4 mg 01/31/20 16:00 02/01/20 14:48 Zofran IV 4 mg Q8H PRN Administration Nausea And Vomiting Pantoprazole Sodium 40 mg 01/17/20 10:00 02/07/20 12:45 Protonix IV Not Given QDAY [facility] Sodium Chloride 10 ml 12/28/19 10:00 02/07/20 12:17 Sodium Chloride Flush Syringe 10 Ml IV 10 ml BID SUSAN Administration Nutrition/Malnutrition Assess - Dietary Evaluation Nutrition/Malnutrition Findings: Nutrition Notes Start: 12/30/19 08:57 Freq: Status: Active Protocol: Document 02/07/20 11:17 AL (Rec: 02/07/20 11:21 AL [id number]) Co-Sign 02/07/20 11:17 MK Nutrition Notes Initial or Follow up Reassessment Current Diagnosis Malnutrition Other Pertinent Diagnosis short gut syndrome s/p hemicolectomy, R nephrectomy, anemia Current Diet 12h Cyclic CPN at 125/275/ 125ml/hr Labs/Tests BG 159 Pertinent Medications Reviewed Height 5 ft 8 in Weight 62.5 kg [place] Body Weight (kg) 70.00 BMI 20.9 Weight Status Appropriate Subjective/Other Information 12 hour cyclic CPN day 38. No needed changes. Pt is tolerating CPN well. Percent of energy/protein needs met: 100%/100% Burn Absent Trauma Absent GI Symptoms None Current % PO Negligible Minimum of two criteria Yes Body Fat Depletion Mild depletion (non-severe) Muscle Mass Mild Depletion (non-severe) Reduced [employer]inator Strength Measurably Reduced (severe) #3 Nutrition Diagnosis Altered GI function Diagnosis Progress(for reassessment Continues documentation) #2 Nutrition Diagnosis Malnutrition Diagnosis Progress(for reassessment Continues documentation) #1 Nutrition Diagnosis Inadequate oral intake Diagnosis Progress(for reassessment Continues documentation) Is patient on ventilator? No Is Patient Ambulatory and/or Out of Bed Yes REE-([facility]-ambulatory/OOB) [ [id number]] Calculation Used for Recommendations [facility] Additional Notes Protein needs 78-94g (1.25-1. 5g/kg) Fluid needs 1ml/kcal Nutrition Intervention Change Diet Order: Continue CPN Nutrition Support: Continue 12 hr cyclic CPN at 125/275/125 ml/hr. MVI, MTE Osmolality 1249. Kcal 1,740 Protein (gm) 95 Carbohydrates (gm) 400 Fluid (mL) 3,000 Fiber (gm) 0 Goal #1 Meet at least 75% of energy and protein needs via CPN Anticipated Discharge Needs: 12 hour Cyclic TPN Follow-Up By: 02/08/20 Additional Comments Labs in AM: CLIF
[2020-02-07] MEDS ORDERED: TOTAL PARENTERAL NUTRITION 3,000 ML IV SCH (20:00)
[2020-02-08] MEDS: HYDROmorphone 1 MG/1 ML INJ IV PRN ×6 (00:08→20:59)
[2020-02-08 06:45] LABS: Blood Urea Nitrogen 16 mg/dL (9-20); Calcium 8.4 mg/dL (8.4-10.2); Hemolysis Index 1
[2020-02-08 06:48] LABS: BUN/Creatinine Ratio 40
[2020-02-08] MEDS: PANTOPRAZOLE 40 MG INJ IV SCH (10:00)
[2020-02-08] MEDS: NICOTINE 21 MG/24 HR PATCH TD SCH (10:00)
--- NOTE | 2020-02-08 11:15 | Event Note ---
Date: 02/08/20 POD 35 /34/33/8 VSS AFebrile, appears to be tolerating diet thus far, I appreciate [facility] nurse input on ostomy and wound, WE REALLY NEED TO REDUCE LABS EACH DAY SINCE PATIENT HAS BEEN IN THE HOSPITAL OVER ONE MONTH AND THE LABS HAVE BEEN STABLE, PLEASE LIMIT LABS TO MINIMUM, UNLESS INDICATED.
[2020-02-08] MEDS: HEPARIN 5,000 UNIT/1 ML VIAL SUB-Q SCH ×2 (13:33→23:19)
--- NOTE | 2020-02-08 14:19 | Progress Note ---
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 Patient states for the past 2 days he has had some abdominal distention in the right lower quadrant and crampy 10 out of 10 pain. He has had multiple episodes of nausea and vomiting. Denies fever chills cough cold or congestion. On December 30, [address] showed patient to have free air in colon. Surgical intervention was required. Patient had surgery had partial hemicolectomy during exploratory laparotomy was subsequently intubated and transferred to the intensive care unit. On December 31, 2019 patient returned to the OR for an additional surgery. After initial extubation. Patient was not follow commands agitated unable to really protect airways and therefore was reintubated. -- Nausea/vomiting- RESOLVED likely from narcotics induced, limit use of narcotic, reglan as needed Ct abd/pelvis showed no obstruction, distended stomach General surgery recommended to stop all narcotics, strict n.p.o. except ice chips -- Small bowel obstruction Status post exploratory lap x3. per surgery note: Some ischemic bowel, S/P Hemicolectomy, Fistula washed out. CT abdomen and pelvis shows intraperitoneal fluid collection. Now s/p CT-guided paracentesis. Culture negative Monitor vital signs and labs. ID on board. Patient treated with ceftriaxone, Flagyl and fluconazole for possible intra-abdominal infection. Cultures negative so far. Status post surgery. 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 Patient is status post surgical intervention. Patient tolerated procedure well. Patient's abdominal pain has essentially resolved. Now 1 the complications is short bowel syndrome. Patient only had 4 feet of some mild bile left. This is not enough for immediate adequate absorption. Patient currently on TPN. Scheduled to have a reanastomosis of ostomy site on Tuesday or . Plan for patient to have TPN for approximately 4 to 6 months until bowel is able to heal. At that time patient will require another's procedure which is highly complicated and attempts to extend the amount of patient is bile and create better reabsorption. Even when this is complete I do not see patient improved enough to return to a viable occupation. Patient will endure chronic malnutrition with limited endurance and fatigue and potential electrolyte abnormalities that were now lateral patient in my opinion to ever gain adequate employment. Patient will be limited by his nutritional status as well as pain requirements. It is my opinion the patient would not be to adequately perform any job functions. Patient has difficulty now with ADLs and requires assistance with most ADLs. -- Dehydration: Resolved Patient well-hydrated Continue IV hydration --Acute Metabolic Encephalopathy with subsequent acute respiratory failure Resolved -- Metabolic acidosis Resolved -- ANEMIA of CD Continue to monitor hemoglobin Iron supplements -- Insomnia --Thrombocythemia Initially had thrombocytopenia and there was a concern for HIT blood test was negative Now has been thrombocythemia with platelet count up to 900s. This is likely reactive. Hematology oncology recommendations appreciated -- Severe protein calorie malnutrition cachexia : Medical Imaging Tech following January 25, 2020 I spoke to surgery myself plan is not to have the patient be on TPN forever. Plan will be to readdress the ostomy site. Allow TPN to let the bowel heal. Because patient had ischemic bowel. There was also plans to transfer patient to outpatient TPN clinic at [place]. Plan for anastomotic correction Sunday January 26, 2020 patient up walking around with physical therapy. Pain is better. Having problems at the ostomy site. States difficult to keep from draining and pulls off ostomy to Plan keshia to have revision done on possibly Tuesday. January 27, 2020. Patient in good spirits no bowel movement discussed plan with myself and Dr. Vick. Plan for revision of ostomy site potentially on Tuesday. January 28, 2020 no new changes in the p.m. chemical burn from bile at ostomy site. Requiring increased pain medications. No longer dehydrated no longer encephalopathic. 01/28: Awaiting change in ostomy site due to leaking. Continue supportive care and pain control. Discussed risk with pain meds extensively 01/29: No new complaints today except for pain which was adjusted and addressed by the surgeon 01/30: Patient was seen and evaluated this morning is going for ostomy revision today. Review of post surgical note indicates Pre-op diagnosis: necrotic jejunostomy, fascial dehiscience Post-op diagnosis: other (remaining bowel very friable.) Findings: , necrotics stoma of end jejunostomy. mucous fistula needed revision as well. all remaining bowel viable. fascial dehiscience. Procedure: Exploratory laparotomy, adhesiolysis, revision of jejunostomy /stoma, revision of mucous fistula, relocation of end jejunostomy, Anesthesia: GETA We will continue to monitor check labs in a.m. to ensure no insensible loss of electrolytes. Continue pain control. Case management for discharge planning when okay with surgeon. Patient continues on TPN at this time. 01/31: Continue supportive care. Will obtain Psych consultation for possible depression from prolonged hospitalization. Monitor developing leukocytosis. plan discussed with patient and patients sister 02/01: Per Surgery, Flagyl noted, ... no further role for surgical intervention for several months, since with the intense infllammatory reaction and the friable/ probable radiation induced changes in the remaining small intestine, and desmoplastic reaction from multiple surgeries , again reinforced not to pull on ostomy appliance as this results in worsening skin damage. Noted hypoglycemia: Will add PRN dextros. 02/02: Psych input noted, no meds at this time. Continue supportive care, BP improving some. Monitor for recurrent Hypoglycemia. Will continue to replace insensible loss. Discharge planning When ok with surgeon. Case management. 02/03: Awaiting home health arrangement for TPN,. unfortunately continues to remove ostomy bag. not sure why despite all the education that he continues to do this. Poor prognosis due to non compliance. May need electrolyte correction with the TPN, recheck labs in a.m. to ensure correction of hypokalemia 02/04. Surgery follow up notes reviewed. May have ice chips. Still has pain. Vitals stable. He needs some form of insurance - medicaid. Will discuss with comp field case manager. 02/05. Has no fresh complaints today. Vitals reviewed. 02/06. Surgery notes reviewed. patient will be started on a diet by barge loader to see if he tolerates. 02/07. TPN discontinued today. Patient is currently tolerating liquid diet. Surgery still following closely. He says his pain is not well controlled currently. I have added long-acting oxycodone History Interval history: Patient seen and examined at bedside this morning. Complains of pain around the abdomen. Says his pain is not well controlled Hospitalist Physical - Constitutional Vitals: Temp Pulse Resp BP Pulse Ox 98.7 F 99 H 16 113/63 98 02/08/20 04:10 02/08/20 08:15 02/08/20 08:15 02/08/20 08:15 02/08/20 08:15 General appearance: Present: cachectic - EENT Eyes: Present: PERRL - Neck Neck: Present: supple - Respiratory Respiratory: bilateral: CTA - Cardiovascular Heart Sounds: Present: S1 & S2 - Extremities Extremities: No edema - Abdominal General gastrointestinal: soft, tender - Psychiatric Psychiatric: appropriate mood/affect - Neurologic Neurologic: CNII-XII intact Results - Labs CBC & Chem 7: 02/03/20 04:00 02/08/20 05:40 Labs: Laboratory Last Values WBC 7.8 K/mm3 (4.5-11.0) 02/03/20 04:00 RBC 2.99 M/mm3 (3.65-5.03) L 02/03/20 04:00 Hgb 8.9 gm/dl (11.8-15.2) L 02/03/20 04:00 Hgb Comment See scanned result 01/12/20 06:15 Hct 26.1 % (35.5-45.6) L D 02/03/20 04:00 MCV 87 fl (84-94) 02/03/20 04:00 MCH 30 pg (28-32) 02/03/20 04:00 MCHC 34 % (32-34) 02/03/20 04:00 RDW 15.5 % (13.2-15.2) H 02/03/20 04:00 Plt Count 250 K/mm3 (140-440) 02/03/20 04:00 Lymph % (Auto) 13.2 % (13.4-35.0) L 01/25/20 07:54 Moore % (Auto) 9.1 % (0.0-7.3) H 01/25/20 07:54 Eos % (Auto) 1.3 % (0.0-4.3) 01/25/20 07:54 Baso % (Auto) 0.2 % (0.0-1.8) 01/25/20 07:54 Lymph # (Auto) 1.2 K/mm3 (1.2-5.4) 01/25/20 07:54 Moore # (Auto) 0.8 K/mm3 (0.0-0.8) 01/25/20 07:54 Eos # (Auto) 0.1 K/mm3 (0.0-0.4) 01/25/20 07:54 Baso # (Auto) 0.0 K/mm3 (0.0-0.1) 01/25/20 07:54 Add Manual Diff Complete 01/05/20 09:17 Total Counted 100 01/05/20 09:17 Seg Neutrophils % 76.2 % (40.0-70.0) H 01/25/20 07:54 Seg Neuts % (Manual) 97.0 % (40.0-70.0) H 01/05/20 09:17 Band Neutrophils % 0 % 01/05/20 09:17 Lymphocytes % (Manual) 0 % (13.4-35.0) L 01/05/20 09:17 Reactive Lymphs % (Man) 0 % 01/05/20 09:17 Monocytes % (Manual) 2.0 % (0.0-7.3) 01/05/20 09:17 Eosinophils % (Manual) 1.0 % (0.0-4.3) 01/05/20 09:17 Basophils % (Manual) 0 % (0.0-1.8) 01/05/20 09:17 Metamyelocytes % 0 % 01/05/20 09:17 Myelocytes % 0 % 01/05/20 09:17 Promyelocytes % 0 % 01/05/20 09:17 Blast Cells % 0 % 01/05/20 09:17 Nucleated RBC % Not Reportable 01/05/20 09:17 Seg Neutrophils # 6.8 K/mm3 (1.8-7.7) 01/25/20 07:54 Seg Neutrophils # Man 11.7 K/mm3 (1.8-7.7) H 01/05/20 09:17 Band Neutrophils # 0.0 K/mm3 01/05/20 09:17 Lymphocytes # (Manual) 0.0 K/mm3 (1.2-5.4) L 01/05/20 09:17 Abs React Lymphs (Man) 0.0 K/mm3 01/05/20 09:17 Monocytes # (Manual) 0.2 K/mm3 (0.0-0.8) 01/05/20 09:17 Eosinophils # (Manual) 0.1 K/mm3 (0.0-0.4) 01/05/20 09:17 Basophils # (Manual) 0.0 K/mm3 (0.0-0.1) 01/05/20 09:17 Metamyelocytes # 0.0 K/mm3 01/05/20 09:17 Myelocytes # 0.0 K/mm3 01/05/20 09:17 Promyelocytes # 0.0 K/mm3 01/05/20 09:17 Blast Cells # 0.0 K/mm3 01/05/20 09:17 WBC Morphology Not Reportable 01/05/20 09:17 Hypersegmented Neuts Not Reportable 01/05/20 09:17 Hyposegmented Neuts Not Reportable 01/05/20 09:17 Hypogranular Neuts Not Reportable 01/05/20 09:17 Smudge Cells Not Reportable 01/05/20 09:17 Toxic Granulation Not Reportable 01/05/20 09:17 Toxic Vacuolation Not Reportable 01/05/20 09:17 Dohle Bodies Not Reportable 01/05/20 09:17 Pelger-Huet Anomaly Not Reportable 01/05/20 09:17 Anuradha Rods Not Reportable 01/05/20 09:17 Platelet Estimate Consistent w auto 01/05/20 09:17 Clumped Platelets Not Reportable 01/05/20 09:17 Plt Clumps, EDTA Not Reportable 01/05/20 09:17 Large Platelets Not Reportable 01/05/20 09:17 Giant Platelets Not Reportable 01/05/20 09:17 Platelet Satelliting Not Reportable 01/05/20 09:17 Plt Morphology Comment Not Reportable 01/05/20 09:17 RBC Morphology Not Reportable 01/05/20 09:17 Dimorphic RBCs Not Reportable 01/05/20 09:17 Polychromasia Not Reportable 01/05/20 09:17 Hypochromasia Not Reportable 01/05/20 09:17 Poikilocytosis Not Reportable 01/05/20 09:17 Anisocytosis Few 01/05/20 09:17 Microcytosis Not Reportable 01/05/20 09:17 Macrocytosis Not Reportable 01/05/20 09:17 Spherocytes Not Reportable 01/05/20 09:17 Pappenheimer Bodies Not Reportable 01/05/20 09:17 Sickle Cells Not Reportable 01/05/20 09:17 Target Cells 1+ 01/05/20 09:17 Tear Drop Cells Not Reportable 01/05/20 09:17 Ovalocytes Not Reportable 01/05/20 09:17 Helmet Cells Not Reportable 01/05/20 09:17 [place] Bodies Not Reportable 01/05/20 09:17 Gifford Rings Not Reportable 01/05/20 09:17 Kaylie Cells Not Reportable 01/05/20 09:17 Bite Cells Not Reportable 01/05/20 09:17 Crenated Cell Not Reportable 01/05/20 09:17 Elliptocytes Not Reportable 01/05/20 09:17 Acanthocytes (Spur) Not Reportable 01/05/20 09:17 Rouleaux Not Reportable 01/05/20 09:17 Hemoglobin C Crystals Not Reportable 01/05/20 09:17 Schistocytes Not Reportable 01/05/20 09:17 Malaria parasites Not Reportable 01/05/20 09:17 Sickle Cell Solubility See scanned result 01/12/20 06:15 Hemoglobin A See scanned result 01/12/20 06:15 Hemoglobin A2 See scanned result 01/12/20 06:15 Hemoglobin A2 Prime See scanned result 01/12/20 06:15 Hemoglobin C See scanned result 01/12/20 06:15 Hemoglobin D See scanned result 01/12/20 06:15 Hemoglobin E See scanned result 01/12/20 06:15 Hgb F Diffential Stain See scanned result 01/12/20 06:15 Hemoglobin F Quant See scanned result 01/12/20 06:15 Hemoglobin G See scanned result 01/12/20 06:15 Hemoglobin S See scanned result 01/12/20 06:15 Hemoglobin [place] See scanned result 01/12/20 06:15 Hemoglobin [place] See scanned result 01/12/20 06:15 Hemoglobin Prema See scanned result 01/12/20 06:15 Variant Hemoglobin See scanned result 01/12/20 06:15 Abnorm Hgb IEF Confirm See scanned result 01/12/20 06:15 Hemoglobin Interpret See scanned result 01/12/20 06:15 Hemoglobinopathy Note See scanned result 01/12/20 06:15 Christ Bodies Not Reportable 01/05/20 09:17 Hem Pathologist Commnt No 01/05/20 09:17 PT 14.8 Sec. (12.2-14.9) 01/08/20 19:18 INR 1.14 (0.87-1.13) H 01/08/20 19:18 APTT 42.2 Sec. (24.2-36.6) H 12/30/19 22:30 Heparin Anti-Xa, Unfract Negative (Negative) 01/03/20 11:08 ABG pH 7.456 pH Units (7.350-7.450) H 01/01/20 05:15 POC ABG pCO2 34.7 mmHg (32.0-48.0) 12/31/19 04:03 ABG pCO2 34.1 mm Hg 01/01/20 05:15 POC ABG pO2 95.1 mmHg (83-108) 12/31/19 04:03 ABG pO2 85.3 mm Hg (80.0-90.0) 01/01/20 05:15 POC ABG HCO3 20.2 12/31/19 04:03 ABG HCO3 23.5 mmol/L (20.0-26.0) 01/01/20 05:15 ABG O2 Saturation 97.1 % (95.0-99.0) 01/01/20 05:15 ABG O2 Content 9.4 (0.0-44) 01/01/20 05:15 POC ABG Base Excess -4.2 12/31/19 04:03 ABG Base Excess -0.3 mmol/L (-2.0-3.0) 01/01/20 05:15 ABG Hemoglobin 6.9 gm/dl (14.0-18.0) L 01/01/20 05:15 ABG Carboxyhemoglobin 1.4 % (0.0-5.0) 01/01/20 05:15 ABG Methemoglobin 0.7 % (0.0-1.5) 01/01/20 05:15 Oxyhemoglobin 95.0 % (95.0-99.0) 01/01/20 05:15 FiO2 35 % 01/01/20 05:15 Sodium 139 mmol/L (137-145) 02/08/20 05:40 Potassium 4.1 mmol/L (3.6-5.0) 02/08/20 05:40 Chloride 99.6 mmol/L (98-107) 02/08/20 05:40 Carbon Dioxide 28 mmol/L (22-30) 02/08/20 05:40 Anion Gap 16 mmol/L 02/08/20 05:40 BUN 16 mg/dL (9-20) 02/08/20 05:40 Creatinine 0.4 mg/dL (0.8-1.3) L 02/08/20 05:40 Estimated GFR > 60 ml/min 02/08/20 05:40 BUN/Creatinine Ratio 40 % 02/08/20 05:40 Glucose 147 mg/dL (75-100) H 02/08/20 05:40 POC Glucose 127 mg/dL (70-105) H 02/06/20 06:10 Lactic Acid 1.00 mmol/L (0.7-2.0) 01/05/20 06:35 Calcium 8.4 mg/dL (8.4-10.2) 02/08/20 05:40 Phosphorus 3.70 mg/dL (2.5-4.5) 02/07/20 05:45 Magnesium 1.80 mg/dL (1.7-2.3) 02/07/20 05:45 Iron 21 ug/dL (49-181) L 01/13/20 05:00 TIBC 179 mcg/dL (250-450) L 01/13/20 05:00 Total Bilirubin 0.80 mg/dL (0.1-1.2) 02/03/20 04:00 Direct Bilirubin 1.3 mg/dL (0-0.2) H 01/08/20 08:30 Indirect Bilirubin 1.0 mg/dL 01/08/20 08:30 AST 17 units/L (5-40) 02/03/20 04:00 ALT 36 units/L (7-56) 02/03/20 04:00 Alkaline Phosphatase 135 units/L (35-129) H 02/03/20 04:00 Total Protein 4.5 g/dL (6.3-8.2) L 02/03/20 04:00 Albumin 2.2 g/dL (3.9-5) L 02/03/20 04:00 Albumin/Globulin Ratio 1.0 % 02/03/20 04:00 Triglycerides 58 mg/dL (2-149) 02/06/20 05:27 Lipase 9 units/L (13-60) L 12/29/19 14:29 Serotonin Release Assay See scanned result 01/03/20 11:08 Urine Color Yellow (Yellow) 12/27/19 Unknown Urine Turbidity Clear (Clear) 12/27/19 Unknown Urine pH 5.0 (5.0-7.0) 12/27/19 Unknown Ur Specific [place] > 1.059 (1.003-1.030) H 12/27/19 Unknown Urine Protein 30 mg/dl mg/dL (Negative) 12/27/19 Unknown Urine Glucose (UA) Neg mg/dL (Negative) 12/27/19 Unknown Urine Ketones 20 mg/dL (Negative) 12/27/19 Unknown Urine Blood Mod (Negative) 12/27/19 Unknown Urine Nitrite Neg (Negative) 12/27/19 Unknown Urine Bilirubin Neg (Negative) 12/27/19 Unknown Urine Urobilinogen < 2.0 mg/dL (<2.0) 12/27/19 Unknown Ur Leukocyte Esterase Neg (Negative) 12/27/19 Unknown Urine WBC (Auto) 2.0 /HPF (0.0-6.0) 12/27/19 Unknown Urine RBC (Auto) 28.0 /HPF (0.0-6.0) 12/27/19 Unknown U Epithel Cells (Auto) < 1.0 /HPF (0-13.0) 12/27/19 Unknown Urine Mucus 3+ /HPF 12/27/19 Unknown Fluid Type Paracentesis 01/09/20 Unknown Fluid Color Fauzia 01/09/20 Unknown Fluid Appearance Turbid 01/09/20 Unknown Fluid WBC 3225 /mm3 01/09/20 Unknown Fluid RBC 325 /mm3 01/09/20 Unknown Fluid Seg Neutrophils 87.0 % 01/09/20 Unknown Fluid Lymphocytes 10.0 % 01/09/20 Unknown Fluid Reactive Lymphs 0 % 01/09/20 Unknown Fluid Monocytes 3.0 % 01/09/20 Unknown Fluid Eosinophils 0 % 01/09/20 Unknown Fluid Basophils 0 % 01/09/20 Unknown Heparin-induced Plt Ab Negative (Negative) 01/03/20 11:08 UF Heparin High Dose 4 % Release 01/03/20 11:08 SU UFH Low Dose 0.1 9 % Release 01/03/20 11:08 SU UFH Low Dose 0.5 4 % Release 01/03/20 11:08 Blood Type B POSITIVE 01/31/20 06:19 Antibody Screen Negative 01/31/20 06:19 Crossmatch See Detail 01/31/20 06:19 Azul/IV: Voiding Method Urinal IV Catheter Type [Left Forearm INT / Saline Lock ] IV Catheter Type [Right Chest] IVAD / Port IV Catheter Type [Left Hand] INT / Saline Lock IV Catheter Type [Left Wrist] Peripheral IV IV Catheter Type [Right Peripheral IV Forearm] IV Catheter Type [Right Upper PICC Line arm] IV Catheter Type [Right INT / Saline Lock Antecubital] Active Medications - Current Medications Current Medications: Generic Name Dose Route Start Last Admin Trade Name Freq PRN Reason Stop Dose Admin Acetaminophen 650 mg 02/02/20 02:50 02/02/20 02:53 Tylenol PO 650 mg Q6H PRN Administration Fever >101 Hydrocodone Bitart/Acetaminophen 7.5 mg 01/20/20 10:00 02/06/20 21:00 Hydrocodone/Apap 7.5-325 PO 7.5 mg Q6HR PRN Administration Pain, Moderate (4-6) Dextrose 50 ml 02/02/20 11:24 D50w (25gm) Syringe IV Q30MIN PRN Hypoglycemia Protocol Heparin Sodium (Porcine) 5,000 unit 02/08/20 14:00 02/08/20 13:33 Heparin SUB-Q 5,000 unit Q8HR SUSAN Administration Hydromorphone HCl 0.5 mg 02/07/20 11:53 02/08/20 12:59 Dilaudid IV 0.5 mg Q4H PRN Administration Pain , Severe (7-10) Fat Emulsion Intravenous 250 mls @ 21 mls/hr 01/28/20 20:00 01/28/20 20:10 Intralipid 20% IV 01/29/20 07:59 21 mls/hr [email or web address] [facility] Administration Amino Acids/Electrolytes/Dextrose 3,000 mls @ 0 mls/hr 01/28/20 20:00 01/28/20 20:08 Tpn Adult IV 01/29/20 08:00 275 mls/hr [email or web address] [facility] Administration Protocol As Directed Amino Acids/Electrolytes/Dextrose 3,000 mls @ 0 mls/hr 02/08/20 20:00 Tpn Adult IV 02/09/20 08:01 [email or web address] [facility] Protocol As Directed Fat Emulsion Intravenous 250 mls @ 21 mls/hr 02/08/20 20:00 Intralipid 20% IV 02/09/20 08:00 [email or web address] SUSAN Nicotine 21 mg 12/31/19 10:00 02/08/20 10:00 Habitrol TD 21 mg QDAY SUSAN Administration Ondansetron HCl 4 mg 01/31/20 16:00 02/01/20 14:48 Zofran IV 4 mg Q8H PRN Administration Nausea And Vomiting Oxycodone HCl 10 mg 02/08/20 15:00 Oxycontin PO Q12HR SUSAN Pantoprazole Sodium 40 mg 01/17/20 10:00 02/08/20 10:00 Protonix IV 40 mg QDAY SUSAN Administration Sodium Chloride 10 ml 12/28/19 10:00 02/08/20 13:02 Sodium Chloride Flush Syringe 10 Ml IV 10 ml BID SUSAN Administration Nutrition/Malnutrition Assess - Dietary Evaluation Nutrition/Malnutrition Findings: Nutrition Notes Start: 12/30/19 08:57 Freq: Status: Active Protocol: Document 02/08/20 10:58 ANY (Rec: 02/08/20 11:03 ANY [id number]) Co-Sign 02/08/20 10:58 MK Nutrition Notes Initial or Follow up Reassessment Current Diagnosis Malnutrition Other Pertinent Diagnosis short gut syndrome s/p hemicolectomy, R nephrectomy, anemia Current Diet 12h Cyclic CPN at 125/275/ 125ml/hr Labs/Tests BG 147 Pertinent Medications Dilaudid Height 5 ft 8 in Weight 48 kg [place] Body Weight (kg) 70.00 BMI 16.0 Weight change and time frame 30% wt loss in 1 month Weight Status Underweight Subjective/Other Information 12 hour cyclic CPN day 39. No CPN needed changes, per MD, no freq lab orders needed. Yesterday's dinner white rice tolerated. This AM, pt received eggs, toast, grits, and milk. Pt ate 10-20% of foods. Pt reported good food tolerance, adhering to small bites and slow intake, and drinking more fluids (urine ligher in color today). Reinforced diet plan with pt. Spoke with lead informatica developer about special diet and modified order. Plan to give pt rice and banana for tomorrow's dinner. Will add one food at a time. Percent of energy/protein needs met: 89%/100% Burn Absent Trauma Absent GI Symptoms Other Current % PO Negligible Minimum of two criteria Yes Body Fat Depletion Mild depletion (non-severe) Muscle Mass Mild Depletion (non-severe) Reduced Biomathematician Strength Measurably Reduced (severe) #3 Nutrition Diagnosis Altered GI function Diagnosis Progress(for reassessment Continues documentation) #2 Nutrition Diagnosis Malnutrition Diagnosis Progress(for reassessment Continues documentation) #1 Nutrition Diagnosis Inadequate oral intake As Evidenced by Signs and Symptoms oral diet is experimental with 1/2 cup white rice for now. Diagnosis Progress(for reassessment Continues documentation) Is patient on ventilator? No Is Patient Ambulatory and/or Out of Bed Yes REE-([place]-ambulatory/OOB) [ 1773.850 [id number]] Kcal/Kg value to use for calculation 41 Approximate Energy Requirements Using 1968 kcal/Kg Calculation Used for Recommendations Kcal/kg Additional Notes Protein needs 60-72g (1.25-1. 5g/kg) Fluid needs 1ml/kcal Nutrition Intervention Change Diet Order: Continue CPN, GI Soft with white rice and banana only. Nutrition Support: Continue 12 hr cyclic CPN at 125/275/125 ml/hr. MVI. Osmolality 1249. Kcal 2,240 Protein (gm) 95 Carbohydrates (gm) 400 Fat (gm) 50 Fluid (mL) 3,250 Fiber (gm) 0 Goal #1 Meet at least 75% of energy and protein needs via CPN Goal #2 Diet advancement/tolerance Anticipated Discharge Needs: 12 hour Cyclic TPN Follow-Up By: 02/09/20 Additional Comments F/u intake tolerance. If good, Tuesday try new low-fiber food . No labs in AM due to trending stable labs
[2020-02-08] MEDS: oxyCODONE ER 10 MG TAB PO SCH ×2 (17:03→23:18)
[2020-02-08] MEDS ORDERED: TOTAL PARENTERAL NUTRITION 3,000 ML IV SCH (20:00)
[2020-02-08] MEDS ORDERED: FAT EMULSIONS 20% 250 ML IV SCH (20:00)
[2020-02-09] MEDS: HYDROmorphone 1 MG/1 ML INJ IV PRN ×6 (00:58→22:22)
[2020-02-09] MEDS: oxyCODONE ER 10 MG TAB PO SCH ×2 (10:12→22:31)
[2020-02-09] MEDS: NICOTINE 21 MG/24 HR PATCH TD SCH (10:12)
[2020-02-09] MEDS: PANTOPRAZOLE 40 MG INJ IV SCH (10:12)
--- NOTE | 2020-02-09 10:54 | Progress Note ---
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 Patient states for the past 2 days he has had some abdominal distention in the right lower quadrant and crampy 10 out of 10 pain. He has had multiple episodes of nausea and vomiting. Denies fever chills cough cold or congestion. On December 30, [address] showed patient to have free air in colon. Surgical intervention was required. Patient had surgery had partial hemicolectomy during exploratory laparotomy was subsequently intubated and transferred to the intensive care unit. On December 31, 2019 patient returned to the OR for an additional surgery. After initial extubation. Patient was not follow commands agitated unable to really protect airways and therefore was reintubated. -- Nausea/vomiting- RESOLVED likely from narcotics induced, limit use of narcotic, reglan as needed Ct abd/pelvis showed no obstruction, distended stomach General surgery recommended to stop all narcotics, strict n.p.o. except ice chips -- Small bowel obstruction Status post exploratory lap x3. per surgery note: Some ischemic bowel, S/P Hemicolectomy, Fistula washed out. CT abdomen and pelvis shows intraperitoneal fluid collection. Now s/p CT-guided paracentesis. Culture negative Monitor vital signs and labs. ID on board. Patient treated with ceftriaxone, Flagyl and fluconazole for possible intra-abdominal infection. Cultures negative so far. Status post surgery. 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 Patient is status post surgical intervention. Patient tolerated procedure well. Patient's abdominal pain has essentially resolved. Now 1 the complications is short bowel syndrome. Patient only had 4 feet of some mild bile left. This is not enough for immediate adequate absorption. Patient currently on TPN. Scheduled to have a reanastomosis of ostomy site on Tuesday or . Plan for patient to have TPN for approximately 4 to 6 months until bowel is able to heal. At that time patient will require another's procedure which is highly complicated and attempts to extend the amount of patient is bile and create better reabsorption. Even when this is complete I do not see patient improved enough to return to a viable occupation. Patient will endure chronic malnutrition with limited endurance and fatigue and potential electrolyte abnormalities that were now lateral patient in my opinion to ever gain adequate employment. Patient will be limited by his nutritional status as well as pain requirements. It is my opinion the patient would not be to adequately perform any job functions. Patient has difficulty now with ADLs and requires assistance with most ADLs. -- Dehydration: Resolved Patient well-hydrated Continue IV hydration --Acute Metabolic Encephalopathy with subsequent acute respiratory failure Resolved -- Metabolic acidosis Resolved -- ANEMIA of CD Continue to monitor hemoglobin Iron supplements -- Insomnia Improved --Thrombocythemia Initially had thrombocytopenia and there was a concern for HIT blood test was negative Now has been thrombocythemia with platelet count up to 900s. This is likely reactive. Hematology oncology recommendations appreciated -- Severe protein calorie malnutrition cachexia : Bundle Sorter following January 25, 2020 I spoke to surgery myself plan is not to have the patient be on TPN forever. Plan will be to readdress the ostomy site. Allow TPN to let the bowel heal. Because patient had ischemic bowel. There was also plans to transfer patient to outpatient TPN clinic at [facility]. Plan for anastomotic correction Sunday January 26, 2020 patient up walking around with physical therapy. Pain is better. Having problems at the ostomy site. States difficult to keep from draining and pulls off ostomy to Plan keshia to have revision done on possibly Tuesday. January 27, 2020. Patient in good spirits no bowel movement discussed plan with myself and Dr. Vick. Plan for revision of ostomy site potentially on Tuesday. January 28, 2020 no new changes in the p.m. chemical burn from bile at ostomy site. Requiring increased pain medications. No longer dehydrated no longer encephalopathic. 01/28: Awaiting change in ostomy site due to leaking. Continue supportive care and pain control. Discussed risk with pain meds extensively 01/29: No new complaints today except for pain which was adjusted and addressed by the surgeon 01/30: Patient was seen and evaluated this morning is going for ostomy revision today. Review of post surgical note indicates Pre-op diagnosis: necrotic jejunostomy, fascial dehiscience Post-op diagnosis: other (remaining bowel very friable.) Findings: , necrotics stoma of end jejunostomy. mucous fistula needed revision as well. all remaining bowel viable. fascial dehiscience. Procedure: Exploratory laparotomy, adhesiolysis, revision of jejunostomy /stoma, revision of mucous fistula, relocation of end jejunostomy, Anesthesia: GETA We will continue to monitor check labs in a.m. to ensure no insensible loss of electrolytes. Continue pain control. Case management for discharge planning when okay with surgeon. Patient continues on TPN at this time. 01/31: Continue supportive care. Will obtain Psych consultation for possible depression from prolonged hospitalization. Monitor developing leukocytosis. plan discussed with patient and patients sister 02/01: Per Surgery, Flagyl noted, ... no further role for surgical intervention for several months, since with the intense infllammatory reaction and the friable/ probable radiation induced changes in the remaining small intestine, and desmoplastic reaction from multiple surgeries , again reinforced not to pull on ostomy appliance as this results in worsening skin damage. Noted hypoglycemia: Will add PRN dextros. 02/02: Psych input noted, no meds at this time. Continue supportive care, BP improving some. Monitor for recurrent Hypoglycemia. Will continue to replace insensible loss. Discharge planning When ok with surgeon. Case management. 02/03: Awaiting home health arrangement for TPN,. unfortunately continues to remove ostomy bag. not sure why despite all the education that he continues to do this. Poor prognosis due to non compliance. May need electrolyte correction with the TPN, recheck labs in a.m. to ensure correction of hypokalemia 02/04. Surgery follow up notes reviewed. May have ice chips. Still has pain. Vitals stable. He needs some form of insurance - medicaid. Will discuss with business case analyst. 02/05. Has no fresh complaints today. Vitals reviewed. 02/06. Surgery notes reviewed. patient will be started on a diet by stabber to see if he tolerates. 02/07. Remains on TPN. Patient is currently tolerating liquid diet. Surgery still following closely. He says his pain is not well controlled currently. I have added long-acting oxycodone 02/08. Pain not controlled that much with current pain medications. History Interval history: Patient seen and examined at bedside this morning. He says his pain medications change did not work well Still on TPN Hospitalist Physical - Constitutional Vitals: Temp Pulse Resp BP Pulse Ox 98.7 F 105 H 20 106/70 99 02/08/20 04:10 02/09/20 05:41 02/09/20 05:41 02/09/20 05:41 02/09/20 05:41 General appearance: Present: cachectic - EENT Eyes: Present: PERRL - Neck Neck: Present: supple, normal ROM - Respiratory Respiratory: bilateral: CTA - Cardiovascular Rhythm: regular Heart Sounds: Present: S1 & S2 - Extremities Extremities: no ischemia, No edema - Abdominal General gastrointestinal: soft, tender, non-distended, other (Ostomy in place) - Psychiatric Psychiatric: appropriate mood/affect - Neurologic Neurologic: CNII-XII intact Results - Labs CBC & Chem 7: 02/03/20 04:00 02/08/20 05:40 Labs: Laboratory Last Values WBC 7.8 K/mm3 (4.5-11.0) 02/03/20 04:00 RBC 2.99 M/mm3 (3.65-5.03) L 02/03/20 04:00 Hgb 8.9 gm/dl (11.8-15.2) L 02/03/20 04:00 Hgb Comment See scanned result 01/12/20 06:15 Hct 26.1 % (35.5-45.6) L D 02/03/20 04:00 MCV 87 fl (84-94) 02/03/20 04:00 MCH 30 pg (28-32) 02/03/20 04:00 MCHC 34 % (32-34) 02/03/20 04:00 RDW 15.5 % (13.2-15.2) H 02/03/20 04:00 Plt Count 250 K/mm3 (140-440) 02/03/20 04:00 Lymph % (Auto) 13.2 % (13.4-35.0) L 01/25/20 07:54 [place] % (Auto) 9.1 % (0.0-7.3) H 01/25/20 07:54 Eos % (Auto) 1.3 % (0.0-4.3) 01/25/20 07:54 Baso % (Auto) 0.2 % (0.0-1.8) 01/25/20 07:54 Lymph # (Auto) 1.2 K/mm3 (1.2-5.4) 01/25/20 07:54 [place] # (Auto) 0.8 K/mm3 (0.0-0.8) 01/25/20 07:54 Eos # (Auto) 0.1 K/mm3 (0.0-0.4) 01/25/20 07:54 Baso # (Auto) 0.0 K/mm3 (0.0-0.1) 01/25/20 07:54 Add Manual Diff Complete 01/05/20 09:17 Total Counted 100 01/05/20 09:17 Seg Neutrophils % 76.2 % (40.0-70.0) H 01/25/20 07:54 Seg Neuts % (Manual) 97.0 % (40.0-70.0) H 01/05/20 09:17 Band Neutrophils % 0 % 01/05/20 09:17 Lymphocytes % (Manual) 0 % (13.4-35.0) L 01/05/20 09:17 Reactive Lymphs % (Man) 0 % 01/05/20 09:17 Monocytes % (Manual) 2.0 % (0.0-7.3) 01/05/20 09:17 Eosinophils % (Manual) 1.0 % (0.0-4.3) 01/05/20 09:17 Basophils % (Manual) 0 % (0.0-1.8) 01/05/20 09:17 Metamyelocytes % 0 % 01/05/20 09:17 Myelocytes % 0 % 01/05/20 09:17 Promyelocytes % 0 % 01/05/20 09:17 Blast Cells % 0 % 01/05/20 09:17 Nucleated RBC % Not Reportable 01/05/20 09:17 Seg Neutrophils # 6.8 K/mm3 (1.8-7.7) 01/25/20 07:54 Seg Neutrophils # Man 11.7 K/mm3 (1.8-7.7) H 01/05/20 09:17 Band Neutrophils # 0.0 K/mm3 01/05/20 09:17 Lymphocytes # (Manual) 0.0 K/mm3 (1.2-5.4) L 01/05/20 09:17 Abs React Lymphs (Man) 0.0 K/mm3 01/05/20 09:17 Monocytes # (Manual) 0.2 K/mm3 (0.0-0.8) 01/05/20 09:17 Eosinophils # (Manual) 0.1 K/mm3 (0.0-0.4) 01/05/20 09:17 Basophils # (Manual) 0.0 K/mm3 (0.0-0.1) 01/05/20 09:17 Metamyelocytes # 0.0 K/mm3 01/05/20 09:17 Myelocytes # 0.0 K/mm3 01/05/20 09:17 Promyelocytes # 0.0 K/mm3 01/05/20 09:17 Blast Cells # 0.0 K/mm3 01/05/20 09:17 WBC Morphology Not Reportable 01/05/20 09:17 Hypersegmented Neuts Not Reportable 01/05/20 09:17 Hyposegmented Neuts Not Reportable 01/05/20 09:17 Hypogranular Neuts Not Reportable 01/05/20 09:17 Smudge Cells Not Reportable 01/05/20 09:17 Toxic Granulation Not Reportable 01/05/20 09:17 Toxic Vacuolation Not Reportable 01/05/20 09:17 Dohle Bodies Not Reportable 01/05/20 09:17 Pelger-Huet Anomaly Not Reportable 01/05/20 09:17 Anuradha Rods Not Reportable 01/05/20 09:17 Platelet Estimate Consistent w auto 01/05/20 09:17 Clumped Platelets Not Reportable 01/05/20 09:17 Plt Clumps, EDTA Not Reportable 01/05/20 09:17 Large Platelets Not Reportable 01/05/20 09:17 Giant Platelets Not Reportable 01/05/20 09:17 Platelet Satelliting Not Reportable 01/05/20 09:17 Plt Morphology Comment Not Reportable 01/05/20 09:17 RBC Morphology Not Reportable 01/05/20 09:17 Dimorphic RBCs Not Reportable 01/05/20 09:17 Polychromasia Not Reportable 01/05/20 09:17 Hypochromasia Not Reportable 01/05/20 09:17 Poikilocytosis Not Reportable 01/05/20 09:17 Anisocytosis Few 01/05/20 09:17 Microcytosis Not Reportable 01/05/20 09:17 Macrocytosis Not Reportable 01/05/20 09:17 Spherocytes Not Reportable 01/05/20 09:17 Pappenheimer Bodies Not Reportable 01/05/20 09:17 Sickle Cells Not Reportable 01/05/20 09:17 Target Cells 1+ 01/05/20 09:17 Tear Drop Cells Not Reportable 01/05/20 09:17 Ovalocytes Not Reportable 01/05/20 09:17 Helmet Cells Not Reportable 01/05/20 09:17 [place] Bodies Not Reportable 01/05/20 09:17 [place] Rings Not Reportable 01/05/20 09:17 Kaylie Cells Not Reportable 01/05/20 09:17 Bite Cells Not Reportable 01/05/20 09:17 Crenated Cell Not Reportable 01/05/20 09:17 Elliptocytes Not Reportable 01/05/20 09:17 Acanthocytes (Spur) Not Reportable 01/05/20 09:17 Rouleaux Not Reportable 01/05/20 09:17 Hemoglobin C Crystals Not Reportable 01/05/20 09:17 Schistocytes Not Reportable 01/05/20 09:17 Malaria parasites Not Reportable 01/05/20 09:17 Sickle Cell Solubility See scanned result 01/12/20 06:15 Hemoglobin A See scanned result 01/12/20 06:15 Hemoglobin A2 See scanned result 01/12/20 06:15 Hemoglobin A2 Prime See scanned result 01/12/20 06:15 Hemoglobin C See scanned result 01/12/20 06:15 Hemoglobin D See scanned result 01/12/20 06:15 Hemoglobin E See scanned result 01/12/20 06:15 Hgb F Diffential Stain See scanned result 01/12/20 06:15 Hemoglobin F Quant See scanned result 01/12/20 06:15 Hemoglobin G See scanned result 01/12/20 06:15 Hemoglobin S See scanned result 01/12/20 06:15 Hemoglobin O-Grant See scanned result 01/12/20 06:15 Hemoglobin [place] See scanned result 01/12/20 06:15 Hemoglobin Prema See scanned result 01/12/20 06:15 Variant Hemoglobin See scanned result 01/12/20 06:15 Abnorm Hgb IEF Confirm See scanned result 01/12/20 06:15 Hemoglobin Interpret See scanned result 01/12/20 06:15 Hemoglobinopathy Note See scanned result 01/12/20 06:15 Christ Bodies Not Reportable 01/05/20 09:17 Hem Pathologist Commnt No 01/05/20 09:17 PT 14.8 Sec. (12.2-14.9) 01/08/20 19:18 INR 1.14 (0.87-1.13) H 01/08/20 19:18 APTT 42.2 Sec. (24.2-36.6) H 12/30/19 22:30 Heparin Anti-Xa, Unfract Negative (Negative) 01/03/20 11:08 ABG pH 7.456 pH Units (7.350-7.450) H 01/01/20 05:15 POC ABG pCO2 34.7 mmHg (32.0-48.0) 12/31/19 04:03 ABG pCO2 34.1 mm Hg 01/01/20 05:15 POC ABG pO2 95.1 mmHg (83-108) 12/31/19 04:03 ABG pO2 85.3 mm Hg (80.0-90.0) 01/01/20 05:15 POC ABG HCO3 20.2 12/31/19 04:03 ABG HCO3 23.5 mmol/L (20.0-26.0) 01/01/20 05:15 ABG O2 Saturation 97.1 % (95.0-99.0) 01/01/20 05:15 ABG O2 Content 9.4 (0.0-44) 01/01/20 05:15 POC ABG Base Excess -4.2 12/31/19 04:03 ABG Base Excess -0.3 mmol/L (-2.0-3.0) 01/01/20 05:15 ABG Hemoglobin 6.9 gm/dl (14.0-18.0) L 01/01/20 05:15 ABG Carboxyhemoglobin 1.4 % (0.0-5.0) 01/01/20 05:15 ABG Methemoglobin 0.7 % (0.0-1.5) 01/01/20 05:15 Oxyhemoglobin 95.0 % (95.0-99.0) 01/01/20 05:15 FiO2 35 % 01/01/20 05:15 Sodium 139 mmol/L (137-145) 02/08/20 05:40 Potassium 4.1 mmol/L (3.6-5.0) 02/08/20 05:40 Chloride 99.6 mmol/L (98-107) 02/08/20 05:40 Carbon Dioxide 28 mmol/L (22-30) 02/08/20 05:40 Anion Gap 16 mmol/L 02/08/20 05:40 BUN 16 mg/dL (9-20) 02/08/20 05:40 Creatinine 0.4 mg/dL (0.8-1.3) L 02/08/20 05:40 Estimated GFR > 60 ml/min 02/08/20 05:40 BUN/Creatinine Ratio 40 % 02/08/20 05:40 Glucose 147 mg/dL (75-100) H 02/08/20 05:40 POC Glucose 127 mg/dL (70-105) H 02/06/20 06:10 Lactic Acid 1.00 mmol/L (0.7-2.0) 01/05/20 06:35 Calcium 8.4 mg/dL (8.4-10.2) 02/08/20 05:40 Phosphorus 3.70 mg/dL (2.5-4.5) 02/07/20 05:45 Magnesium 1.80 mg/dL (1.7-2.3) 02/07/20 05:45 Iron 21 ug/dL (49-181) L 01/13/20 05:00 TIBC 179 mcg/dL (250-450) L 01/13/20 05:00 Total Bilirubin 0.80 mg/dL (0.1-1.2) 02/03/20 04:00 Direct Bilirubin 1.3 mg/dL (0-0.2) H 01/08/20 08:30 Indirect Bilirubin 1.0 mg/dL 01/08/20 08:30 AST 17 units/L (5-40) 02/03/20 04:00 ALT 36 units/L (7-56) 02/03/20 04:00 Alkaline Phosphatase 135 units/L (35-129) H 02/03/20 04:00 Total Protein 4.5 g/dL (6.3-8.2) L 02/03/20 04:00 Albumin 2.2 g/dL (3.9-5) L 02/03/20 04:00 Albumin/Globulin Ratio 1.0 % 02/03/20 04:00 Triglycerides 58 mg/dL (2-149) 02/06/20 05:27 Lipase 9 units/L (13-60) L 12/29/19 14:29 Serotonin Release Assay See scanned result 01/03/20 11:08 Urine Color Yellow (Yellow) 12/27/19 Unknown Urine Turbidity Clear (Clear) 12/27/19 Unknown Urine pH 5.0 (5.0-7.0) 12/27/19 Unknown Ur Specific Angelica > 1.059 (1.003-1.030) H 12/27/19 Unknown Urine Protein 30 mg/dl mg/dL (Negative) 12/27/19 Unknown Urine Glucose (UA) Neg mg/dL (Negative) 12/27/19 Unknown Urine Ketones 20 mg/dL (Negative) 12/27/19 Unknown Urine Blood Mod (Negative) 12/27/19 Unknown Urine Nitrite Neg (Negative) 12/27/19 Unknown Urine Bilirubin Neg (Negative) 12/27/19 Unknown Urine Urobilinogen < 2.0 mg/dL (<2.0) 12/27/19 Unknown Ur Leukocyte Esterase Neg (Negative) 12/27/19 Unknown Urine WBC (Auto) 2.0 /HPF (0.0-6.0) 12/27/19 Unknown Urine RBC (Auto) 28.0 /HPF (0.0-6.0) 12/27/19 Unknown U Epithel Cells (Auto) < 1.0 /HPF (0-13.0) 12/27/19 Unknown Urine Mucus 3+ /HPF 12/27/19 Unknown Fluid Type Paracentesis 01/09/20 Unknown Fluid Color Fauzia 01/09/20 Unknown Fluid Appearance Turbid 01/09/20 Unknown Fluid WBC 3225 /mm3 01/09/20 Unknown Fluid RBC 325 /mm3 01/09/20 Unknown Fluid Seg Neutrophils 87.0 % 01/09/20 Unknown Fluid Lymphocytes 10.0 % 01/09/20 Unknown Fluid Reactive Lymphs 0 % 01/09/20 Unknown Fluid Monocytes 3.0 % 01/09/20 Unknown Fluid Eosinophils 0 % 01/09/20 Unknown Fluid Basophils 0 % 01/09/20 Unknown Heparin-induced Plt Ab Negative (Negative) 01/03/20 11:08 UF Heparin High Dose 4 % Release 01/03/20 11:08 SU UFH Low Dose 0.1 9 % Release 01/03/20 11:08 SU UFH Low Dose 0.5 4 % Release 01/03/20 11:08 Blood Type B POSITIVE 01/31/20 06:19 Antibody Screen Negative 01/31/20 06:19 Crossmatch See Detail 01/31/20 06:19 Azul/IV: Voiding Method Urinal IV Catheter Type [Left Forearm INT / Saline Lock ] IV Catheter Type [Right Chest] IVAD / Port IV Catheter Type [Left Hand] INT / Saline Lock IV Catheter Type [Left Wrist] Peripheral IV IV Catheter Type [Right Peripheral IV Forearm] IV Catheter Type [Right Upper PICC Line arm] IV Catheter Type [Right INT / Saline Lock Antecubital] Active Medications - Current Medications Current Medications: Generic Name Dose Route Start Last Admin Trade Name Freq PRN Reason Stop Dose Admin Acetaminophen 650 mg 02/02/20 02:50 02/02/20 02:53 Tylenol PO 650 mg Q6H PRN Administration Fever >101 Hydrocodone Bitart/Acetaminophen 7.5 mg 01/20/20 10:00 02/06/20 21:00 Hydrocodone/Apap 7.5-325 PO 7.5 mg Q6HR PRN Administration Pain, Moderate (4-6) Dextrose 50 ml 02/02/20 11:24 D50w (25gm) Syringe IV Q30MIN PRN Hypoglycemia Protocol Heparin Sodium (Porcine) 5,000 unit 02/08/20 14:00 02/08/20 23:19 Heparin SUB-Q 5,000 unit Q8HR SUSAN Administration Hydromorphone HCl 0.5 mg 02/07/20 11:53 02/09/20 10:11 Dilaudid IV 0.5 mg Q4H PRN Administration Pain , Severe (7-10) Fat Emulsion Intravenous 250 mls @ 21 mls/hr 01/28/20 20:00 01/28/20 20:10 Intralipid 20% IV 01/29/20 07:59 21 mls/hr [email or web address] SUSAN Administration Amino Acids/Electrolytes/Dextrose 3,000 mls @ 0 mls/hr 01/28/20 20:00 01/28/20 20:08 Tpn Adult IV 01/29/20 08:00 275 mls/hr [email or web address] SUSAN Administration Protocol As Directed Nicotine 21 mg 12/31/19 10:00 02/09/20 10:12 Habitrol TD 21 mg QDAY SUSAN Administration Ondansetron HCl 4 mg 01/31/20 16:00 02/01/20 14:48 Zofran IV 4 mg Q8H PRN Administration Nausea And Vomiting Oxycodone HCl 10 mg 02/08/20 15:00 02/09/20 10:12 Oxycontin PO 10 mg Q12HR SUSAN Administration Pantoprazole Sodium 40 mg 01/17/20 10:00 02/09/20 10:12 Protonix IV 40 mg QDAY SUSAN Administration Sodium Chloride 10 ml 12/28/19 10:00 02/09/20 10:42 Sodium Chloride Flush Syringe 10 Ml IV 10 ml BID SUSAN Administration Nutrition/Malnutrition Assess - Dietary Evaluation Nutrition/Malnutrition Findings: Nutrition Notes Start: 12/30/19 08:57 Freq: Status: Active Protocol: Document 02/08/20 10:58 ANY (Rec: 02/08/20 11:03 ANY [id number]) Co-Sign 02/08/20 10:58 STARR Nutrition Notes Initial or Follow up Reassessment Current Diagnosis Malnutrition Other Pertinent Diagnosis short gut syndrome s/p hemicolectomy, R nephrectomy, anemia Current Diet 12h Cyclic CPN at 125/275/ 125ml/hr Labs/Tests BG 147 Pertinent Medications Dilaudid Height 5 ft 8 in Weight 48 kg [place] Body Weight (kg) 70.00 BMI 16.0 Weight change and time frame 30% wt loss in 1 month Weight Status Underweight Subjective/Other Information 12 hour cyclic CPN day 39. No CPN needed changes, per MD, no freq lab orders needed. Yesterday's dinner white rice tolerated. This AM, pt received eggs, toast, grits, and milk. Pt ate 10-20% of foods. Pt reported good food tolerance, adhering to small bites and slow intake, and drinking more fluids (urine ligher in color today). Reinforced diet plan with pt. Spoke with executive cyber leader about special diet and modified order. Plan to give pt rice and banana for tomorrow's dinner. Will add one food at a time. Percent of energy/protein needs met: 89%/100% Burn Absent Trauma Absent GI Symptoms Other Current % PO Negligible Minimum of two criteria Yes Body Fat Depletion Mild depletion (non-severe) Muscle Mass Mild Depletion (non-severe) Reduced Brewmaster Strength Measurably Reduced (severe) #3 Nutrition Diagnosis Altered GI function Diagnosis Progress(for reassessment Continues documentation) #2 Nutrition Diagnosis Malnutrition Diagnosis Progress(for reassessment Continues documentation) #1 Nutrition Diagnosis Inadequate oral intake As Evidenced by Signs and Symptoms oral diet is experimental with 1/2 cup white rice for now. Diagnosis Progress(for reassessment Continues documentation) Is patient on ventilator? No Is Patient Ambulatory and/or Out of Bed Yes REE-([place]-St. Jeor-ambulatory/OOB) [ 1773.850 [id number]] Kcal/Kg value to use for calculation 41 Approximate Energy Requirements Using 1968 kcal/Kg Calculation Used for Recommendations Kcal/kg Additional Notes Protein needs 60-72g (1.25-1. 5g/kg) Fluid needs 1ml/kcal Nutrition Intervention Change Diet Order: Continue CPN, GI Soft with white rice and banana only. Nutrition Support: Continue 12 hr cyclic CPN at 125/275/125 ml/hr. MVI. Osmolality 1249. Kcal 2,240 Protein (gm) 95 Carbohydrates (gm) 400 Fat (gm) 50 Fluid (mL) 3,250 Fiber (gm) 0 Goal #1 Meet at least 75% of energy and protein needs via CPN Goal #2 Diet advancement/tolerance Anticipated Discharge Needs: 12 hour Cyclic TPN Follow-Up By: 02/09/20 Additional Comments F/u intake tolerance. If good, Tuesday try new low-fiber food . No labs in AM due to trending stable labs
[2020-02-09] MEDS: HEPARIN 5,000 UNIT/1 ML VIAL SUB-Q SCH ×3 (14:30→22:32)
--- NOTE | 2020-02-09 15:42 | Event Note ---
Date: 02/09/20 POD 36/35/34/9 VSS Afebrile, ostomy appliance seems to be working better, abd wound about the same, seems to be tolerating slowly advancing soft mech diet, still needs TPN since I do not think he can eat enough with his short gut to meet his caloric and nurtritional needs. Continue present management, I spoke at length with the patient this morning about all of this.
[2020-02-09] MEDS ORDERED: TOTAL PARENTERAL NUTRITION 3,000 ML IV SCH (20:00)
[2020-02-10] MEDS: HYDROmorphone 1 MG/1 ML INJ IV PRN ×6 (02:30→22:41)
[2020-02-10] MEDS: HEPARIN 5,000 UNIT/1 ML VIAL SUB-Q SCH ×3 (06:45→22:42)
--- NOTE | 2020-02-10 08:50 | Event Note ---
Date: 02/10/20 POD 37/36/35/10 VSS AF, soft mech diet as tolerated, afebrile off antibiotics, ostomy output around 1000cc, continue present treatment, patient ambulated yesterday. Labs should really be once a week unless otherwise indicated for TPN.
[2020-02-10] MEDS: NICOTINE 21 MG/24 HR PATCH TD SCH (09:52)
[2020-02-10] MEDS: oxyCODONE ER 10 MG TAB PO SCH ×2 (09:52→20:48)
[2020-02-10] MEDS: PANTOPRAZOLE 40 MG INJ IV SCH (09:52)
--- NOTE | 2020-02-10 12:42 | Progress Note ---
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 Patient states for the past 2 days he has had some abdominal distention in the right lower quadrant and crampy 10 out of 10 pain. He has had multiple episodes of nausea and vomiting. Denies fever chills cough cold or congestion. On December 30, [address] showed patient to have free air in colon. Surgical intervention was required. Patient had surgery had partial hemicolectomy during exploratory laparotomy was subsequently intubated and transferred to the intensive care unit. On December 31, 2019 patient returned to the OR for an additional surgery. After initial extubation. Patient was not follow commands agitated unable to really protect airways and therefore was reintubated. -- Nausea/vomiting- RESOLVED likely from narcotics induced, limit use of narcotic, reglan as needed Ct abd/pelvis showed no obstruction, distended stomach General surgery recommended to stop all narcotics, strict n.p.o. except ice chips -- Small bowel obstruction Status post exploratory lap x3. per surgery note: Some ischemic bowel, S/P Hemicolectomy, Fistula washed out. CT abdomen and pelvis shows intraperitoneal fluid collection. Now s/p CT-guided paracentesis. Culture negative Monitor vital signs and labs. ID on board. Patient treated with ceftriaxone, Flagyl and fluconazole for possible intra-abdominal infection. Cultures negative so far. Status post surgery. 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 Patient is status post surgical intervention. Patient tolerated procedure well. Patient's abdominal pain has essentially resolved. Now 1 the complications is short bowel syndrome. Patient only had 4 feet of some mild bile left. This is not enough for immediate adequate absorption. Patient currently on TPN. Scheduled to have a reanastomosis of ostomy site on Tuesday or . Plan for patient to have TPN for approximately 4 to 6 months until bowel is able to heal. At that time patient will require another's procedure which is highly complicated and attempts to extend the amount of patient is bile and create better reabsorption. Even when this is complete I do not see patient improved enough to return to a viable occupation. Patient will endure chronic malnutrition with limited endurance and fatigue and potential electrolyte abnormalities that were now lateral patient in my opinion to ever gain adequate employment. Patient will be limited by his nutritional status as well as pain requirements. It is my opinion the patient would not be to adequately perform any job functions. Patient has difficulty now with ADLs and requires assistance with most ADLs. -- Dehydration: Resolved Patient well-hydrated Continue IV hydration --Acute Metabolic Encephalopathy with subsequent acute respiratory failure Resolved -- Metabolic acidosis Resolved -- ANEMIA of CD Continue to monitor hemoglobin Iron supplements -- Insomnia Improved --Thrombocythemia Initially had thrombocytopenia and there was a concern for HIT blood test was negative Now has been thrombocythemia with platelet count up to 900s. This is likely reactive. Hematology oncology recommendations appreciated -- Severe protein calorie malnutrition cachexia : Line Patroller following January 25, 2020 I spoke to surgery myself plan is not to have the patient be on TPN forever. Plan will be to readdress the ostomy site. Allow TPN to let the bowel heal. Because patient had ischemic bowel. There was also plans to transfer patient to outpatient TPN clinic at [place]. Plan for anastomotic correction Sunday January 26, 2020 patient up walking around with physical therapy. Pain is better. Having problems at the ostomy site. States difficult to keep from draining and pulls off ostomy to Plan keshia to have revision done on possibly Tuesday. January 27, 2020. Patient in good spirits no bowel movement discussed plan with myself and Dr. Vick. Plan for revision of ostomy site potentially on Tuesday. January 28, 2020 no new changes in the p.m. chemical burn from bile at ostomy site. Requiring increased pain medications. No longer dehydrated no longer encephalopathic. 01/28: Awaiting change in ostomy site due to leaking. Continue supportive care and pain control. Discussed risk with pain meds extensively 01/29: No new complaints today except for pain which was adjusted and addressed by the surgeon 01/30: Patient was seen and evaluated this morning is going for ostomy revision today. Review of post surgical note indicates Pre-op diagnosis: necrotic jejunostomy, fascial dehiscience Post-op diagnosis: other (remaining bowel very friable.) Findings: , necrotics stoma of end jejunostomy. mucous fistula needed revision as well. all remaining bowel viable. fascial dehiscience. Procedure: Exploratory laparotomy, adhesiolysis, revision of jejunostomy /stoma, revision of mucous fistula, relocation of end jejunostomy, Anesthesia: GETA We will continue to monitor check labs in a.m. to ensure no insensible loss of electrolytes. Continue pain control. Case management for discharge planning when okay with surgeon. Patient continues on TPN at this time. 01/31: Continue supportive care. Will obtain Psych consultation for possible depression from prolonged hospitalization. Monitor developing leukocytosis. plan discussed with patient and patients sister 02/01: Per Surgery, Flagyl noted, ... no further role for surgical intervention for several months, since with the intense infllammatory reaction and the friable/ probable radiation induced changes in the remaining small intestine, and desmoplastic reaction from multiple surgeries , again reinforced not to pull on ostomy appliance as this results in worsening skin damage. Noted hypoglycemia: Will add PRN dextros. 02/02: Psych input noted, no meds at this time. Continue supportive care, BP improving some. Monitor for recurrent Hypoglycemia. Will continue to replace insensible loss. Discharge planning When ok with surgeon. Case management. 02/03: Awaiting home health arrangement for TPN,. unfortunately continues to remove ostomy bag. not sure why despite all the education that he continues to do this. Poor prognosis due to non compliance. May need electrolyte correction with the TPN, recheck labs in a.m. to ensure correction of hypokalemia 02/04. Surgery follow up notes reviewed. May have ice chips. Still has pain. Vitals stable. He needs some form of insurance - medicaid. Will discuss with insurance case manager. 02/05. Has no fresh complaints today. Vitals reviewed. 02/06. Surgery notes reviewed. patient will be started on a diet by bag mender to see if he tolerates. 02/07. Remains on TPN. Patient is currently tolerating liquid diet. Surgery still following closely. He says his pain is not well controlled currently. I have added long-acting oxycodone 02/08. Pain not controlled that much with current pain medications. 02/09. No change in medical condition. On mech soft diet. Getting TPN History Interval history: Patient seen and examined at bedside this morning. No new complaints On mech soft diet. Still on TPN Hospitalist Physical - Constitutional Vitals: Temp Pulse Resp BP Pulse Ox 98.8 F 99 H 20 114/72 98 02/10/20 11:40 02/10/20 11:40 02/10/20 11:40 02/10/20 11:40 02/10/20 11:40 General appearance: Present: no acute distress, cachectic - EENT Eyes: Present: PERRL - Neck Neck: Present: supple - Respiratory Respiratory: bilateral: CTA - Cardiovascular Rhythm: regular Heart Sounds: Present: S1 & S2 - Extremities Extremities: no ischemia, No edema - Abdominal General gastrointestinal: soft, non-distended, other (Ostomy in place) - Psychiatric Psychiatric: appropriate mood/affect - Neurologic Neurologic: CNII-XII intact Results - Labs CBC & Chem 7: 02/03/20 04:00 02/08/20 05:40 Labs: Laboratory Last Values WBC 7.8 K/mm3 (4.5-11.0) 02/03/20 04:00 RBC 2.99 M/mm3 (3.65-5.03) L 02/03/20 04:00 Hgb 8.9 gm/dl (11.8-15.2) L 02/03/20 04:00 Hgb Comment See scanned result 01/12/20 06:15 Hct 26.1 % (35.5-45.6) L D 02/03/20 04:00 MCV 87 fl (84-94) 02/03/20 04:00 MCH 30 pg (28-32) 02/03/20 04:00 MCHC 34 % (32-34) 02/03/20 04:00 RDW 15.5 % (13.2-15.2) H 02/03/20 04:00 Plt Count 250 K/mm3 (140-440) 02/03/20 04:00 Lymph % (Auto) 13.2 % (13.4-35.0) L 01/25/20 07:54 Gaines % (Auto) 9.1 % (0.0-7.3) H 01/25/20 07:54 Eos % (Auto) 1.3 % (0.0-4.3) 01/25/20 07:54 Baso % (Auto) 0.2 % (0.0-1.8) 01/25/20 07:54 Lymph # (Auto) 1.2 K/mm3 (1.2-5.4) 01/25/20 07:54 Gaines # (Auto) 0.8 K/mm3 (0.0-0.8) 01/25/20 07:54 Eos # (Auto) 0.1 K/mm3 (0.0-0.4) 01/25/20 07:54 Baso # (Auto) 0.0 K/mm3 (0.0-0.1) 01/25/20 07:54 Add Manual Diff Complete 01/05/20 09:17 Total Counted 100 01/05/20 09:17 Seg Neutrophils % 76.2 % (40.0-70.0) H 01/25/20 07:54 Seg Neuts % (Manual) 97.0 % (40.0-70.0) H 01/05/20 09:17 Band Neutrophils % 0 % 01/05/20 09:17 Lymphocytes % (Manual) 0 % (13.4-35.0) L 01/05/20 09:17 Reactive Lymphs % (Man) 0 % 01/05/20 09:17 Monocytes % (Manual) 2.0 % (0.0-7.3) 01/05/20 09:17 Eosinophils % (Manual) 1.0 % (0.0-4.3) 01/05/20 09:17 Basophils % (Manual) 0 % (0.0-1.8) 01/05/20 09:17 Metamyelocytes % 0 % 01/05/20 09:17 Myelocytes % 0 % 01/05/20 09:17 Promyelocytes % 0 % 01/05/20 09:17 Blast Cells % 0 % 01/05/20 09:17 Nucleated RBC % Not Reportable 01/05/20 09:17 Seg Neutrophils # 6.8 K/mm3 (1.8-7.7) 01/25/20 07:54 Seg Neutrophils # Man 11.7 K/mm3 (1.8-7.7) H 01/05/20 09:17 Band Neutrophils # 0.0 K/mm3 01/05/20 09:17 Lymphocytes # (Manual) 0.0 K/mm3 (1.2-5.4) L 01/05/20 09:17 Abs React Lymphs (Man) 0.0 K/mm3 01/05/20 09:17 Monocytes # (Manual) 0.2 K/mm3 (0.0-0.8) 01/05/20 09:17 Eosinophils # (Manual) 0.1 K/mm3 (0.0-0.4) 01/05/20 09:17 Basophils # (Manual) 0.0 K/mm3 (0.0-0.1) 01/05/20 09:17 Metamyelocytes # 0.0 K/mm3 01/05/20 09:17 Myelocytes # 0.0 K/mm3 01/05/20 09:17 Promyelocytes # 0.0 K/mm3 01/05/20 09:17 Blast Cells # 0.0 K/mm3 01/05/20 09:17 WBC Morphology Not Reportable 01/05/20 09:17 Hypersegmented Neuts Not Reportable 01/05/20 09:17 Hyposegmented Neuts Not Reportable 01/05/20 09:17 Hypogranular Neuts Not Reportable 01/05/20 09:17 Smudge Cells Not Reportable 01/05/20 09:17 Toxic Granulation Not Reportable 01/05/20 09:17 Toxic Vacuolation Not Reportable 01/05/20 09:17 Dohle Bodies Not Reportable 01/05/20 09:17 Pelger-Huet Anomaly Not Reportable 01/05/20 09:17 Anuradha Rods Not Reportable 01/05/20 09:17 Platelet Estimate Consistent w auto 01/05/20 09:17 Clumped Platelets Not Reportable 01/05/20 09:17 Plt Clumps, EDTA Not Reportable 01/05/20 09:17 Large Platelets Not Reportable 01/05/20 09:17 Giant Platelets Not Reportable 01/05/20 09:17 Platelet Satelliting Not Reportable 01/05/20 09:17 Plt Morphology Comment Not Reportable 01/05/20 09:17 RBC Morphology Not Reportable 01/05/20 09:17 Dimorphic RBCs Not Reportable 01/05/20 09:17 Polychromasia Not Reportable 01/05/20 09:17 Hypochromasia Not Reportable 01/05/20 09:17 Poikilocytosis Not Reportable 01/05/20 09:17 Anisocytosis Few 01/05/20 09:17 Microcytosis Not Reportable 01/05/20 09:17 Macrocytosis Not Reportable 01/05/20 09:17 Spherocytes Not Reportable 01/05/20 09:17 Pappenheimer Bodies Not Reportable 01/05/20 09:17 Sickle Cells Not Reportable 01/05/20 09:17 Target Cells 1+ 01/05/20 09:17 Tear Drop Cells Not Reportable 01/05/20 09:17 Ovalocytes Not Reportable 01/05/20 09:17 Helmet Cells Not Reportable 01/05/20 09:17 [place] Bodies Not Reportable 01/05/20 09:17 [place] Rings Not Reportable 01/05/20 09:17 [place] Cells Not Reportable 01/05/20 09:17 Bite Cells Not Reportable 01/05/20 09:17 Crenated Cell Not Reportable 01/05/20 09:17 Elliptocytes Not Reportable 01/05/20 09:17 Acanthocytes (Spur) Not Reportable 01/05/20 09:17 Rouleaux Not Reportable 01/05/20 09:17 Hemoglobin C Crystals Not Reportable 01/05/20 09:17 Schistocytes Not Reportable 01/05/20 09:17 Malaria parasites Not Reportable 01/05/20 09:17 Sickle Cell Solubility See scanned result 01/12/20 06:15 Hemoglobin A See scanned result 01/12/20 06:15 Hemoglobin A2 See scanned result 01/12/20 06:15 Hemoglobin A2 Prime See scanned result 01/12/20 06:15 Hemoglobin C See scanned result 01/12/20 06:15 Hemoglobin D See scanned result 01/12/20 06:15 Hemoglobin E See scanned result 01/12/20 06:15 Hgb F Diffential Stain See scanned result 01/12/20 06:15 Hemoglobin F Quant See scanned result 01/12/20 06:15 Hemoglobin G See scanned result 01/12/20 06:15 Hemoglobin S See scanned result 01/12/20 06:15 Hemoglobin O[place] See scanned result 01/12/20 06:15 Hemoglobin [place] See scanned result 01/12/20 06:15 Hemoglobin Prema See scanned result 01/12/20 06:15 Variant Hemoglobin See scanned result 01/12/20 06:15 Abnorm Hgb IEF Confirm See scanned result 01/12/20 06:15 Hemoglobin Interpret See scanned result 01/12/20 06:15 Hemoglobinopathy Note See scanned result 01/12/20 06:15 Christ Bodies Not Reportable 01/05/20 09:17 Hem Pathologist Commnt No 01/05/20 09:17 PT 14.8 Sec. (12.2-14.9) 01/08/20 19:18 INR 1.14 (0.87-1.13) H 01/08/20 19:18 APTT 42.2 Sec. (24.2-36.6) H 12/30/19 22:30 Heparin Anti-Xa, Unfract Negative (Negative) 01/03/20 11:08 ABG pH 7.456 pH Units (7.350-7.450) H 01/01/20 05:15 POC ABG pCO2 34.7 mmHg (32.0-48.0) 12/31/19 04:03 ABG pCO2 34.1 mm Hg 01/01/20 05:15 POC ABG pO2 95.1 mmHg (83-108) 12/31/19 04:03 ABG pO2 85.3 mm Hg (80.0-90.0) 01/01/20 05:15 POC ABG HCO3 20.2 12/31/19 04:03 ABG HCO3 23.5 mmol/L (20.0-26.0) 01/01/20 05:15 ABG O2 Saturation 97.1 % (95.0-99.0) 01/01/20 05:15 ABG O2 Content 9.4 (0.0-44) 01/01/20 05:15 POC ABG Base Excess -4.2 12/31/19 04:03 ABG Base Excess -0.3 mmol/L (-2.0-3.0) 01/01/20 05:15 ABG Hemoglobin 6.9 gm/dl (14.0-18.0) L 01/01/20 05:15 ABG Carboxyhemoglobin 1.4 % (0.0-5.0) 01/01/20 05:15 ABG Methemoglobin 0.7 % (0.0-1.5) 01/01/20 05:15 Oxyhemoglobin 95.0 % (95.0-99.0) 01/01/20 05:15 FiO2 35 % 01/01/20 05:15 Sodium 139 mmol/L (137-145) 02/08/20 05:40 Potassium 4.1 mmol/L (3.6-5.0) 02/08/20 05:40 Chloride 99.6 mmol/L (98-107) 02/08/20 05:40 Carbon Dioxide 28 mmol/L (22-30) 02/08/20 05:40 Anion Gap 16 mmol/L 02/08/20 05:40 BUN 16 mg/dL (9-20) 02/08/20 05:40 Creatinine 0.4 mg/dL (0.8-1.3) L 02/08/20 05:40 Estimated GFR > 60 ml/min 02/08/20 05:40 BUN/Creatinine Ratio 40 % 02/08/20 05:40 Glucose 147 mg/dL (75-100) H 02/08/20 05:40 POC Glucose 127 mg/dL (70-105) H 02/06/20 06:10 Lactic Acid 1.00 mmol/L (0.7-2.0) 01/05/20 06:35 Calcium 8.4 mg/dL (8.4-10.2) 02/08/20 05:40 Phosphorus 3.70 mg/dL (2.5-4.5) 02/07/20 05:45 Magnesium 1.80 mg/dL (1.7-2.3) 02/07/20 05:45 Iron 21 ug/dL (49-181) L 01/13/20 05:00 TIBC 179 mcg/dL (250-450) L 01/13/20 05:00 Total Bilirubin 0.80 mg/dL (0.1-1.2) 02/03/20 04:00 Direct Bilirubin 1.3 mg/dL (0-0.2) H 01/08/20 08:30 Indirect Bilirubin 1.0 mg/dL 01/08/20 08:30 AST 17 units/L (5-40) 02/03/20 04:00 ALT 36 units/L (7-56) 02/03/20 04:00 Alkaline Phosphatase 135 units/L (35-129) H 02/03/20 04:00 Total Protein 4.5 g/dL (6.3-8.2) L 02/03/20 04:00 Albumin 2.2 g/dL (3.9-5) L 02/03/20 04:00 Albumin/Globulin Ratio 1.0 % 02/03/20 04:00 Triglycerides 58 mg/dL (2-149) 02/06/20 05:27 Lipase 9 units/L (13-60) L 12/29/19 14:29 Serotonin Release Assay See scanned result 01/03/20 11:08 Urine Color Yellow (Yellow) 12/27/19 Unknown Urine Turbidity Clear (Clear) 12/27/19 Unknown Urine pH 5.0 (5.0-7.0) 12/27/19 Unknown Ur Specific Adrian > 1.059 (1.003-1.030) H 12/27/19 Unknown Urine Protein 30 mg/dl mg/dL (Negative) 12/27/19 Unknown Urine Glucose (UA) Neg mg/dL (Negative) 12/27/19 Unknown Urine Ketones 20 mg/dL (Negative) 12/27/19 Unknown Urine Blood Mod (Negative) 12/27/19 Unknown Urine Nitrite Neg (Negative) 12/27/19 Unknown Urine Bilirubin Neg (Negative) 12/27/19 Unknown Urine Urobilinogen < 2.0 mg/dL (<2.0) 12/27/19 Unknown Ur Leukocyte Esterase Neg (Negative) 12/27/19 Unknown Urine WBC (Auto) 2.0 /HPF (0.0-6.0) 12/27/19 Unknown Urine RBC (Auto) 28.0 /HPF (0.0-6.0) 12/27/19 Unknown U Epithel Cells (Auto) < 1.0 /HPF (0-13.0) 12/27/19 Unknown Urine Mucus 3+ /HPF 12/27/19 Unknown Fluid Type Paracentesis 01/09/20 Unknown Fluid Color Fauzia 01/09/20 Unknown Fluid Appearance Turbid 01/09/20 Unknown Fluid WBC 3225 /mm3 01/09/20 Unknown Fluid RBC 325 /mm3 01/09/20 Unknown Fluid Seg Neutrophils 87.0 % 01/09/20 Unknown Fluid Lymphocytes 10.0 % 01/09/20 Unknown Fluid Reactive Lymphs 0 % 01/09/20 Unknown Fluid Monocytes 3.0 % 01/09/20 Unknown Fluid Eosinophils 0 % 01/09/20 Unknown Fluid Basophils 0 % 01/09/20 Unknown Heparin-induced Plt Ab Negative (Negative) 01/03/20 11:08 UF Heparin High Dose 4 % Release 01/03/20 11:08 SU UFH Low Dose 0.1 9 % Release 01/03/20 11:08 SU UFH Low Dose 0.5 4 % Release 01/03/20 11:08 Blood Type B POSITIVE 01/31/20 06:19 Antibody Screen Negative 01/31/20 06:19 Crossmatch See Detail 01/31/20 06:19 Azul/IV: Voiding Method Urinal IV Catheter Type [Left Forearm INT / Saline Lock ] IV Catheter Type [Right Chest] IVAD / Port IV Catheter Type [Left Hand] INT / Saline Lock IV Catheter Type [Left Wrist] Peripheral IV IV Catheter Type [Right Peripheral IV Forearm] IV Catheter Type [Right Upper PICC Line arm] IV Catheter Type [Right INT / Saline Lock Antecubital] Active Medications - Current Medications Current Medications: Generic Name Dose Route Start Last Admin Trade Name Freq PRN Reason Stop Dose Admin Acetaminophen 650 mg 02/02/20 02:50 02/02/20 02:53 Tylenol PO 650 mg Q6H PRN Administration Fever >101 Dextrose 50 ml 02/02/20 11:24 D50w (25gm) Syringe IV Q30MIN PRN Hypoglycemia Protocol Heparin Sodium (Porcine) 5,000 unit 02/08/20 14:00 02/10/20 06:45 Heparin SUB-Q 5,000 unit Q8HR SUSAN Administration Hydromorphone HCl 0.5 mg 02/07/20 11:53 02/10/20 10:48 Dilaudid IV 0.5 mg Q4H PRN Administration Pain , Severe (7-10) Fat Emulsion Intravenous 250 mls @ 21 mls/hr 01/28/20 20:00 01/28/20 20:10 Intralipid 20% IV 01/29/20 07:59 21 mls/hr [email or web address] SUSAN Administration Amino Acids/Electrolytes/Dextrose 3,000 mls @ 0 mls/hr 01/28/20 20:00 01/28/20 20:08 Tpn Adult IV 01/29/20 08:00 275 mls/hr [email or web address] SUSAN Administration Protocol As Directed Amino Acids/Electrolytes/Dextrose 3,000 mls @ 0 mls/hr 02/10/20 20:00 Tpn Adult IV 02/11/20 07:59 [email or web address] [facility] Protocol As Directed Nicotine 21 mg 12/31/19 10:00 02/10/20 09:52 Habitrol TD 21 mg QDAY SUSAN Administration Ondansetron HCl 4 mg 01/31/20 16:00 02/01/20 14:48 Zofran IV 4 mg Q8H PRN Administration Nausea And Vomiting Oxycodone HCl 10 mg 02/08/20 15:00 02/10/20 09:52 Oxycontin PO 10 mg Q12HR SUSAN Administration Oxycodone/Acetaminophen 2 tab 02/10/20 12:38 Percocet 5/325 PO Q8H PRN Pain, Moderate (4-6) Pantoprazole Sodium 40 mg 01/17/20 10:00 02/10/20 09:52 Protonix IV 40 mg QDAY SUSAN Administration Sodium Chloride 10 ml 12/28/19 10:00 02/10/20 09:53 Sodium Chloride Flush Syringe 10 Ml IV 10 ml BID SUSAN Administration Nutrition/Malnutrition Assess - Dietary Evaluation Nutrition/Malnutrition Findings: Nutrition Notes Start: 12/30/19 08:57 Freq: Status: Active Protocol: Document 02/10/20 11:56 LP (Rec: 02/10/20 11:57 LP [id number]) Nutrition Notes Initial or Follow up Reassessment Current Diagnosis Malnutrition Other Pertinent Diagnosis short gut syndrome s/p hemicolectomy, R nephrectomy, anemia Current Diet 12h Cyclic CPN at 125/275/ 125ml/hr Labs/Tests Reviewed Pertinent Medications Reviewed Height 5 ft 8 in Weight 48 kg [place] Body Weight (kg) 70.00 BMI 16.0 Weight Status Underweight Subjective/Other Information 12 hour cyclic CPN day 41. Pt continues to tolerate diet. Percent of energy/protein needs met: 89%/100% Burn Absent Trauma Absent GI Symptoms Other Current % PO Negligible Minimum of two criteria Yes Body Fat Depletion Mild depletion (non-severe) Muscle Mass Mild Depletion (non-severe) Reduced Food Beverage Supervisor Strength Measurably Reduced (severe) #3 Nutrition Diagnosis Altered GI function Diagnosis Progress(for reassessment Continues documentation) #2 Nutrition Diagnosis Malnutrition Diagnosis Progress(for reassessment Continues documentation) #1 Nutrition Diagnosis Inadequate oral intake As Evidenced by Signs and Symptoms oral diet is experimental with 1/2 cup white rice for now. Diagnosis Progress(for reassessment Continues documentation) Is patient on ventilator? No Is Patient Ambulatory and/or Out of Bed Yes REE-(Millard-St. Jeor-ambulatory/OOB) [ 1773.850 [id number]] Kcal/Kg value to use for calculation 41 Approximate Energy Requirements Using 1968 kcal/Kg Calculation Used for Recommendations Kcal/kg Additional Notes Protein needs 60-72g (1.25-1. 5g/kg) Fluid needs 1ml/kcal Nutrition Intervention Change Diet Order: Continue CPN, GI Soft with white rice applesauce, grits, plain egg, cherrios and banana only. Nutrition Support: Continue 12 hr cyclic CPN at 125/275/125 ml/hr. MVI. Osmolality 1249. Kcal 2,240 Protein (gm) 95 Carbohydrates (gm) 400 Fat (gm) 0 Fluid (mL) 3,000 Fiber (gm) 0 Goal #1 Meet at least 75% of energy and protein needs via CPN Goal #2 Diet advancement/tolerance Anticipated Discharge Needs: 12 hour Cyclic TPN Follow-Up By: 02/11/20 Additional Comments LABS ONLY ONCE PER WEEK. Follow for intakes
[2020-02-10] MEDS ORDERED: TOTAL PARENTERAL NUTRITION 3,000 ML IV SCH (20:00)
[2020-02-11] MEDS: oxyCODONE ER 10 MG TAB PO SCH ×3 (01:08→23:13)
[2020-02-11] MEDS: HYDROmorphone 1 MG/1 ML INJ IV PRN ×7 (02:35→23:17)
[2020-02-11] MEDS: HEPARIN 5,000 UNIT/1 ML VIAL SUB-Q SCH ×3 (06:28→23:12)
[2020-02-11] MEDS: PANTOPRAZOLE 40 MG INJ IV SCH (10:23)
[2020-02-11] MEDS: NICOTINE 21 MG/24 HR PATCH TD SCH (10:24)
--- NOTE | 2020-02-11 11:48 | Event Note ---
Date: 02/11/20 VSS AF tolerating diet, ostomy leaking abit today, Ostomy nurse on board, spoke with patient about everthing, continue present care.
--- NOTE | 2020-02-11 17:16 | Progress Note ---
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 Patient states for the past 2 days he has had some abdominal distention in the right lower quadrant and crampy 10 out of 10 pain. He has had multiple episodes of nausea and vomiting. Denies fever chills cough cold or congestion. On December 30, [address] showed patient to have free air in colon. Surgical intervention was required. Patient had surgery had partial hemicolectomy during exploratory laparotomy was subsequently intubated and transferred to the intensive care unit. On December 31, 2019 patient returned to the OR for an additional surgery. After initial extubation. Patient was not follow commands agitated unable to really protect airways and therefore was reintubated. -- Nausea/vomiting- RESOLVED likely from narcotics induced, limit use of narcotic, reglan as needed Ct abd/pelvis showed no obstruction, distended stomach General surgery recommended to stop all narcotics, strict n.p.o. except ice chips -- Small bowel obstruction Status post exploratory lap x3. per surgery note: Some ischemic bowel, S/P Hemicolectomy, Fistula washed out. CT abdomen and pelvis shows intraperitoneal fluid collection. Now s/p CT-guided paracentesis. Culture negative Monitor vital signs and labs. ID on board. Patient treated with ceftriaxone, Flagyl and fluconazole for possible intra-abdominal infection. Cultures negative so far. Status post surgery. 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 Patient is status post surgical intervention. Patient tolerated procedure well. Patient's abdominal pain has essentially resolved. Now 1 the complications is short bowel syndrome. Patient only had 4 feet of some mild bile left. This is not enough for immediate adequate absorption. Patient currently on TPN. Scheduled to have a reanastomosis of ostomy site on Tuesday or . Plan for patient to have TPN for approximately 4 to 6 months until bowel is able to heal. At that time patient will require another's procedure which is highly complicated and attempts to extend the amount of patient is bile and create better reabsorption. Even when this is complete I do not see patient improved enough to return to a viable occupation. Patient will endure chronic malnutrition with limited endurance and fatigue and potential electrolyte abnormalities that were now lateral patient in my opinion to ever gain adequate employment. Patient will be limited by his nutritional status as well as pain requirements. It is my opinion the patient would not be to adequately perform any job functions. Patient has difficulty now with ADLs and requires assistance with most ADLs. -- Dehydration: Resolved Patient well-hydrated Continue IV hydration --Acute Metabolic Encephalopathy with subsequent acute respiratory failure Resolved -- Metabolic acidosis Resolved -- ANEMIA of CD Continue to monitor hemoglobin Iron supplements -- Insomnia Improved --Thrombocythemia Initially had thrombocytopenia and there was a concern for HIT blood test was negative Now has been thrombocythemia with platelet count up to 900s. This is likely reactive. Hematology oncology recommendations appreciated -- Severe protein calorie malnutrition cachexia : Transmission Systems Operator following January 25, 2020 I spoke to surgery myself plan is not to have the patient be on TPN forever. Plan will be to readdress the ostomy site. Allow TPN to let the bowel heal. Because patient had ischemic bowel. There was also plans to transfer patient to outpatient TPN clinic at [place]. Plan for anastomotic correction Sunday January 26, 2020 patient up walking around with physical therapy. Pain is better. Having problems at the ostomy site. States difficult to keep from draining and pulls off ostomy to Plan keshia to have revision done on possibly Tuesday. January 27, 2020. Patient in good spirits no bowel movement discussed plan with myself and Dr. Vick. Plan for revision of ostomy site potentially on Tuesday. January 28, 2020 no new changes in the p.m. chemical burn from bile at ostomy site. Requiring increased pain medications. No longer dehydrated no longer encephalopathic. 01/28: Awaiting change in ostomy site due to leaking. Continue supportive care and pain control. Discussed risk with pain meds extensively 01/29: No new complaints today except for pain which was adjusted and addressed by the surgeon 01/30: Patient was seen and evaluated this morning is going for ostomy revision today. Review of post surgical note indicates Pre-op diagnosis: necrotic jejunostomy, fascial dehiscience Post-op diagnosis: other (remaining bowel very friable.) Findings: , necrotics stoma of end jejunostomy. mucous fistula needed revision as well. all remaining bowel viable. fascial dehiscience. Procedure: Exploratory laparotomy, adhesiolysis, revision of jejunostomy /stoma, revision of mucous fistula, relocation of end jejunostomy, Anesthesia: GETA We will continue to monitor check labs in a.m. to ensure no insensible loss of electrolytes. Continue pain control. Case management for discharge planning when okay with surgeon. Patient continues on TPN at this time. 01/31: Continue supportive care. Will obtain Psych consultation for possible depression from prolonged hospitalization. Monitor developing leukocytosis. plan discussed with patient and patients sister 02/01: Per Surgery, yl noted, ... no further role for surgical intervention for several months, since with the intense infllammatory reaction and the friable/ probable radiation induced changes in the remaining small intestine, and desmoplastic reaction from multiple surgeries , again reinforced not to pull on ostomy appliance as this results in worsening skin damage. Noted hypoglycemia: Will add PRN dextros. 02/02: Psych input noted, no meds at this time. Continue supportive care, BP improving some. Monitor for recurrent Hypoglycemia. Will continue to replace insensible loss. Discharge planning When ok with surgeon. Case management. 02/03: Awaiting home health arrangement for TPN,. unfortunately continues to remove ostomy bag. not sure why despite all the education that he continues to do this. Poor prognosis due to non compliance. May need electrolyte correction with the TPN, recheck labs in a.m. to ensure correction of hypokalemia 02/04. Surgery follow up notes reviewed. May have ice chips. Still has pain. Vitals stable. He needs some form of insurance - medicaid. Will discuss with director of casework department. 02/05. Has no fresh complaints today. Vitals reviewed. 02/06. Surgery notes reviewed. patient will be started on a diet by radius corner machine operator to see if he tolerates. 02/07. Remains on TPN. Patient is currently tolerating liquid diet. Surgery still following closely. He says his pain is not well controlled currently. I have added long-acting oxycodone 02/08. Pain not controlled that much with current pain medications. 02/09. No change in medical condition. On [facility] soft diet. Getting TPN. Added percocet. 02/10. Ostomy leaking. Surgery to see. Otherwise only complain today is pain. He is on IV dilaudid and percocet. manager park on board. He will need assistance with procuring TPN and has no insurance. History Interval history: Patient seen and examined at bedside this morning. No new complaints On [facility] soft diet. Still on TPN Hospitalist Physical - Constitutional Vitals: Temp Pulse Resp BP Pulse Ox 98.8 F 89 18 124/72 99 02/11/20 12:07 02/11/20 12:07 02/11/20 12:07 02/11/20 12:07 02/11/20 12:07 General appearance: Present: no acute distress, cachectic - EENT Eyes: Present: PERRL - Neck Neck: Present: supple - Respiratory Respiratory: bilateral: CTA - Cardiovascular Rhythm: regular Heart Sounds: Present: S1 & S2 - Abdominal General gastrointestinal: soft, non-distended, other (Ostomy intact with some leakage) - Psychiatric Psychiatric: appropriate mood/affect - Neurologic Neurologic: CNII-XII intact Results - Labs CBC & Chem 7: 02/03/20 04:00 02/08/20 05:40 Labs: Laboratory Last Values WBC 7.8 K/mm3 (4.5-11.0) 02/03/20 04:00 RBC 2.99 M/mm3 (3.65-5.03) L 02/03/20 04:00 Hgb 8.9 gm/dl (11.8-15.2) L 02/03/20 04:00 Hgb Comment See scanned result 01/12/20 06:15 Hct 26.1 % (35.5-45.6) L D 02/03/20 04:00 MCV 87 fl (84-94) 02/03/20 04:00 MCH 30 pg (28-32) 02/03/20 04:00 MCHC 34 % (32-34) 02/03/20 04:00 RDW 15.5 % (13.2-15.2) H 02/03/20 04:00 Plt Count 250 K/mm3 (140-440) 02/03/20 04:00 Lymph % (Auto) 13.2 % (13.4-35.0) L 01/25/20 07:54 [place] % (Auto) 9.1 % (0.0-7.3) H 01/25/20 07:54 Eos % (Auto) 1.3 % (0.0-4.3) 01/25/20 07:54 Baso % (Auto) 0.2 % (0.0-1.8) 01/25/20 07:54 Lymph # (Auto) 1.2 K/mm3 (1.2-5.4) 01/25/20 07:54 [place] # (Auto) 0.8 K/mm3 (0.0-0.8) 01/25/20 07:54 Eos # (Auto) 0.1 K/mm3 (0.0-0.4) 01/25/20 07:54 Baso # (Auto) 0.0 K/mm3 (0.0-0.1) 01/25/20 07:54 Add Manual Diff Complete 01/05/20 09:17 Total Counted 100 01/05/20 09:17 Seg Neutrophils % 76.2 % (40.0-70.0) H 01/25/20 07:54 Seg Neuts % (Manual) 97.0 % (40.0-70.0) H 01/05/20 09:17 Band Neutrophils % 0 % 01/05/20 09:17 Lymphocytes % (Manual) 0 % (13.4-35.0) L 01/05/20 09:17 Reactive Lymphs % (Man) 0 % 01/05/20 09:17 Monocytes % (Manual) 2.0 % (0.0-7.3) 01/05/20 09:17 Eosinophils % (Manual) 1.0 % (0.0-4.3) 01/05/20 09:17 Basophils % (Manual) 0 % (0.0-1.8) 01/05/20 09:17 Metamyelocytes % 0 % 01/05/20 09:17 Myelocytes % 0 % 01/05/20 09:17 Promyelocytes % 0 % 01/05/20 09:17 Blast Cells % 0 % 01/05/20 09:17 Nucleated RBC % Not Reportable 01/05/20 09:17 Seg Neutrophils # 6.8 K/mm3 (1.8-7.7) 01/25/20 07:54 Seg Neutrophils # Man 11.7 K/mm3 (1.8-7.7) H 01/05/20 09:17 Band Neutrophils # 0.0 K/mm3 01/05/20 09:17 Lymphocytes # (Manual) 0.0 K/mm3 (1.2-5.4) L 01/05/20 09:17 Abs React Lymphs (Man) 0.0 K/mm3 01/05/20 09:17 Monocytes # (Manual) 0.2 K/mm3 (0.0-0.8) 01/05/20 09:17 Eosinophils # (Manual) 0.1 K/mm3 (0.0-0.4) 01/05/20 09:17 Basophils # (Manual) 0.0 K/mm3 (0.0-0.1) 01/05/20 09:17 Metamyelocytes # 0.0 K/mm3 01/05/20 09:17 Myelocytes # 0.0 K/mm3 01/05/20 09:17 Promyelocytes # 0.0 K/mm3 01/05/20 09:17 Blast Cells # 0.0 K/mm3 01/05/20 09:17 WBC Morphology Not Reportable 01/05/20 09:17 Hypersegmented Neuts Not Reportable 01/05/20 09:17 Hyposegmented Neuts Not Reportable 01/05/20 09:17 Hypogranular Neuts Not Reportable 01/05/20 09:17 Smudge Cells Not Reportable 01/05/20 09:17 Toxic Granulation Not Reportable 01/05/20 09:17 Toxic Vacuolation Not Reportable 01/05/20 09:17 Dohle Bodies Not Reportable 01/05/20 09:17 Pelger-Huet Anomaly Not Reportable 01/05/20 09:17 Anuradha Rods Not Reportable 01/05/20 09:17 Platelet Estimate Consistent w auto 01/05/20 09:17 Clumped Platelets Not Reportable 01/05/20 09:17 Plt Clumps, EDTA Not Reportable 01/05/20 09:17 Large Platelets Not Reportable 01/05/20 09:17 Giant Platelets Not Reportable 01/05/20 09:17 Platelet Satelliting Not Reportable 01/05/20 09:17 Plt Morphology Comment Not Reportable 01/05/20 09:17 RBC Morphology Not Reportable 01/05/20 09:17 Dimorphic RBCs Not Reportable 01/05/20 09:17 Polychromasia Not Reportable 01/05/20 09:17 Hypochromasia Not Reportable 01/05/20 09:17 Poikilocytosis Not Reportable 01/05/20 09:17 Anisocytosis Few 01/05/20 09:17 Microcytosis Not Reportable 01/05/20 09:17 Macrocytosis Not Reportable 01/05/20 09:17 Spherocytes Not Reportable 01/05/20 09:17 Pappenheimer Bodies Not Reportable 01/05/20 09:17 Sickle Cells Not Reportable 01/05/20 09:17 Target Cells 1+ 01/05/20 09:17 Tear Drop Cells Not Reportable 01/05/20 09:17 Ovalocytes Not Reportable 01/05/20 09:17 Helmet Cells Not Reportable 01/05/20 09:17 [place] Bodies Not Reportable 01/05/20 09:17 [place] Rings Not Reportable 01/05/20 09:17 [place] Cells Not Reportable 01/05/20 09:17 Bite Cells Not Reportable 01/05/20 09:17 Crenated Cell Not Reportable 01/05/20 09:17 Elliptocytes Not Reportable 01/05/20 09:17 Acanthocytes (Spur) Not Reportable 01/05/20 09:17 Rouleaux Not Reportable 01/05/20 09:17 Hemoglobin C Crystals Not Reportable 01/05/20 09:17 Schistocytes Not Reportable 01/05/20 09:17 Malaria parasites Not Reportable 01/05/20 09:17 Sickle Cell Solubility See scanned result 01/12/20 06:15 Hemoglobin A See scanned result 01/12/20 06:15 Hemoglobin A2 See scanned result 01/12/20 06:15 Hemoglobin A2 Prime See scanned result 01/12/20 06:15 Hemoglobin C See scanned result 01/12/20 06:15 Hemoglobin D See scanned result 01/12/20 06:15 Hemoglobin E See scanned result 01/12/20 06:15 Hgb F Diffential Stain See scanned result 01/12/20 06:15 Hemoglobin F Quant See scanned result 01/12/20 06:15 Hemoglobin G See scanned result 01/12/20 06:15 Hemoglobin S See scanned result 01/12/20 06:15 Hemoglobin O-Floyd See scanned result 01/12/20 06:15 Hemoglobin [place] See scanned result 01/12/20 06:15 Hemoglobin Prema See scanned result 01/12/20 06:15 Variant Hemoglobin See scanned result 01/12/20 06:15 Abnorm Hgb IEF Confirm See scanned result 01/12/20 06:15 Hemoglobin Interpret See scanned result 01/12/20 06:15 Hemoglobinopathy Note See scanned result 01/12/20 06:15 Christ Bodies Not Reportable 01/05/20 09:17 Hem Pathologist Commnt No 01/05/20 09:17 PT 14.8 Sec. (12.2-14.9) 01/08/20 19:18 INR 1.14 (0.87-1.13) H 01/08/20 19:18 APTT 42.2 Sec. (24.2-36.6) H 12/30/19 22:30 Heparin Anti-Xa, Unfract Negative (Negative) 01/03/20 11:08 ABG pH 7.456 pH Units (7.350-7.450) H 01/01/20 05:15 POC ABG pCO2 34.7 mmHg (32.0-48.0) 12/31/19 04:03 ABG pCO2 34.1 mm Hg 01/01/20 05:15 POC ABG pO2 95.1 mmHg (83-108) 12/31/19 04:03 ABG pO2 85.3 mm Hg (80.0-90.0) 01/01/20 05:15 POC ABG HCO3 20.2 12/31/19 04:03 ABG HCO3 23.5 mmol/L (20.0-26.0) 01/01/20 05:15 ABG O2 Saturation 97.1 % (95.0-99.0) 01/01/20 05:15 ABG O2 Content 9.4 (0.0-44) 01/01/20 05:15 POC ABG Base Excess -4.2 12/31/19 04:03 ABG Base Excess -0.3 mmol/L (-2.0-3.0) 01/01/20 05:15 ABG Hemoglobin 6.9 gm/dl (14.0-18.0) L 01/01/20 05:15 ABG Carboxyhemoglobin 1.4 % (0.0-5.0) 01/01/20 05:15 ABG Methemoglobin 0.7 % (0.0-1.5) 01/01/20 05:15 Oxyhemoglobin 95.0 % (95.0-99.0) 01/01/20 05:15 FiO2 35 % 01/01/20 05:15 Sodium 139 mmol/L (137-145) 02/08/20 05:40 Potassium 4.1 mmol/L (3.6-5.0) 02/08/20 05:40 Chloride 99.6 mmol/L (98-107) 02/08/20 05:40 Carbon Dioxide 28 mmol/L (22-30) 02/08/20 05:40 Anion Gap 16 mmol/L 02/08/20 05:40 BUN 16 mg/dL (9-20) 02/08/20 05:40 Creatinine 0.4 mg/dL (0.8-1.3) L 02/08/20 05:40 Estimated GFR > 60 ml/min 02/08/20 05:40 BUN/Creatinine Ratio 40 % 02/08/20 05:40 Glucose 147 mg/dL (75-100) H 02/08/20 05:40 POC Glucose 127 mg/dL (70-105) H 02/06/20 06:10 Lactic Acid 1.00 mmol/L (0.7-2.0) 01/05/20 06:35 Calcium 8.4 mg/dL (8.4-10.2) 02/08/20 05:40 Phosphorus 3.70 mg/dL (2.5-4.5) 02/07/20 05:45 Magnesium 1.80 mg/dL (1.7-2.3) 02/07/20 05:45 Iron 21 ug/dL (49-181) L 01/13/20 05:00 TIBC 179 mcg/dL (250-450) L 01/13/20 05:00 Total Bilirubin 0.80 mg/dL (0.1-1.2) 02/03/20 04:00 Direct Bilirubin 1.3 mg/dL (0-0.2) H 01/08/20 08:30 Indirect Bilirubin 1.0 mg/dL 01/08/20 08:30 AST 17 units/L (5-40) 02/03/20 04:00 ALT 36 units/L (7-56) 02/03/20 04:00 Alkaline Phosphatase 135 units/L (35-129) H 02/03/20 04:00 Total Protein 4.5 g/dL (6.3-8.2) L 02/03/20 04:00 Albumin 2.2 g/dL (3.9-5) L 02/03/20 04:00 Albumin/Globulin Ratio 1.0 % 02/03/20 04:00 Triglycerides 58 mg/dL (2-149) 02/06/20 05:27 Lipase 9 units/L (13-60) L 12/29/19 14:29 Serotonin Release Assay See scanned result 01/03/20 11:08 Urine Color Yellow (Yellow) 12/27/19 Unknown Urine Turbidity Clear (Clear) 12/27/19 Unknown Urine pH 5.0 (5.0-7.0) 12/27/19 Unknown Ur Specific [place] > 1.059 (1.003-1.030) H 12/27/19 Unknown Urine Protein 30 mg/dl mg/dL (Negative) 12/27/19 Unknown Urine Glucose (UA) Neg mg/dL (Negative) 12/27/19 Unknown Urine Ketones 20 mg/dL (Negative) 12/27/19 Unknown Urine Blood Mod (Negative) 12/27/19 Unknown Urine Nitrite Neg (Negative) 12/27/19 Unknown Urine Bilirubin Neg (Negative) 12/27/19 Unknown Urine Urobilinogen < 2.0 mg/dL (<2.0) 12/27/19 Unknown Ur Leukocyte Esterase Neg (Negative) 12/27/19 Unknown Urine WBC (Auto) 2.0 /HPF (0.0-6.0) 12/27/19 Unknown Urine RBC (Auto) 28.0 /HPF (0.0-6.0) 12/27/19 Unknown U Epithel Cells (Auto) < 1.0 /HPF (0-13.0) 12/27/19 Unknown Urine Mucus 3+ /HPF 12/27/19 Unknown Fluid Type Paracentesis 01/09/20 Unknown Fluid Color Fauzia 01/09/20 Unknown Fluid Appearance Turbid 01/09/20 Unknown Fluid WBC 3225 /mm3 01/09/20 Unknown Fluid RBC 325 /mm3 01/09/20 Unknown Fluid Seg Neutrophils 87.0 % 01/09/20 Unknown Fluid Lymphocytes 10.0 % 01/09/20 Unknown Fluid Reactive Lymphs 0 % 01/09/20 Unknown Fluid Monocytes 3.0 % 01/09/20 Unknown Fluid Eosinophils 0 % 10/07/20 Unknown Fluid Basophils 0 % 01/09/20 Unknown Heparin-induced Plt Ab Negative (Negative) 01/03/20 11:08 UF Heparin High Dose 4 % Release 01/03/20 11:08 SU UFH Low Dose 0.1 9 % Release 01/03/20 11:08 SU UFH Low Dose 0.5 4 % Release 01/03/20 11:08 Blood Type B POSITIVE 01/31/20 06:19 Antibody Screen Negative 01/31/20 06:19 Crossmatch See Detail 01/31/20 06:19 Azul/IV: Voiding Method Urinal IV Catheter Type [Left Forearm INT / Saline Lock ] IV Catheter Type [Right Chest] IVAD / Port IV Catheter Type [Left Hand] INT / Saline Lock IV Catheter Type [Left Wrist] Peripheral IV IV Catheter Type [Right Peripheral IV Forearm] IV Catheter Type [Right Upper PICC Line arm] IV Catheter Type [Right INT / Saline Lock Antecubital] Active Medications - Current Medications Current Medications: Generic Name Dose Route Start Last Admin Trade Name Freq PRN Reason Stop Dose Admin Acetaminophen 650 mg 02/02/20 02:50 02/02/20 02:53 Tylenol PO 650 mg Q6H PRN Administration Fever >101 Dextrose 50 ml 02/02/20 11:24 D50w (25gm) Syringe IV Q30MIN PRN Hypoglycemia Protocol Heparin Sodium (Porcine) 5,000 unit 02/08/20 14:00 02/11/20 14:22 Heparin SUB-Q 5,000 unit Q8HR SUSAN Administration Hydromorphone HCl 0.5 mg 02/07/20 11:53 02/11/20 14:52 Dilaudid IV 0.5 mg Q4H PRN Administration Pain , Severe (7-10) Fat Emulsion Intravenous 250 mls @ 21 mls/hr 01/28/20 20:00 01/28/20 20:10 Intralipid 20% IV 01/29/20 07:59 21 mls/hr [email or web address] SUSAN Administration Amino Acids/Electrolytes/Dextrose 3,000 mls @ 0 mls/hr 01/28/20 20:00 01/28/20 20:08 Tpn Adult IV 01/29/20 08:00 275 mls/hr [email or web address] SUSAN Administration Protocol As Directed Fat Emulsion Intravenous 250 mls @ 21 mls/hr 02/11/20 20:00 Intralipid 20% IV 02/12/20 08:00 [email or web address] [facility] Amino Acids/Electrolytes/Dextrose 3,000 mls @ 0 mls/hr 02/11/20 20:00 Tpn Adult IV 02/12/20 08:00 [email or web address] [facility] Protocol As Directed Nicotine 21 mg 12/31/19 10:00 02/11/20 10:24 Habitrol TD 21 mg QDAY SUSAN Administration Ondansetron HCl 4 mg 01/31/20 16:00 02/01/20 14:48 Zofran IV 4 mg Q8H PRN Administration Nausea And Vomiting Oxycodone HCl 10 mg 02/08/20 15:00 02/11/20 12:41 Oxycontin PO 10 mg Q12HR SUSAN Administration Oxycodone/Acetaminophen 2 tab 02/10/20 12:38 Percocet 5/325 PO Q8H PRN Pain, Moderate (4-6) Pantoprazole Sodium 40 mg 02/12/20 10:00 Protonix PO DAILY [facility] Sodium Chloride 10 ml 12/28/19 10:00 02/11/20 14:24 Sodium Chloride Flush Syringe 10 Ml IV 10 ml BID SUSAN Administration Nutrition/Malnutrition Assess - Dietary Evaluation Nutrition/Malnutrition Findings: Nutrition Notes Start: 12/30/19 08:57 Freq: Status: Active Protocol: Document 02/11/20 10:32 (Rec: 02/11/20 10:35 [id number]) Nutrition Notes Initial or Follow up Reassessment Current Diagnosis Malnutrition Other Pertinent Diagnosis short gut syndrome s/p hemicolectomy, R nephrectomy, anemia Current Diet 12h Cyclic CPN at 125/275/ 125ml/hr Labs/Tests No new Pertinent Medications Reviewed Height 5 ft 8 in Weight 48 kg [place] Body Weight (kg) 70.00 BMI 16.0 Weight Status Underweight Subjective/Other Information 12 hour cyclic CPN day 42. Pt tolerating diet and voices no concerns. Percent of energy/protein needs met: 89%/100% Burn Absent Trauma Absent GI Symptoms Other Current % PO Negligible Minimum of two criteria Yes Body Fat Depletion Mild depletion (non-severe) Muscle Mass Mild Depletion (non-severe) Reduced Instrumentation And Control Technician Strength Measurably Reduced (severe) #3 Nutrition Diagnosis Altered GI function Diagnosis Progress(for reassessment Continues documentation) #2 Nutrition Diagnosis Malnutrition Diagnosis Progress(for reassessment Continues documentation) #1 Nutrition Diagnosis Inadequate oral intake As Evidenced by Signs and Symptoms pt eating rice, grits, banana, and applesauce Diagnosis Progress(for reassessment Improved documentation) Is patient on ventilator? No Is Patient Ambulatory and/or Out of Bed Yes REE-([facility]-ambulatory/OOB) [ 1773.850 [id number]] Kcal/Kg value to use for calculation 41 Approximate Energy Requirements Using 1968 kcal/Kg Calculation Used for Recommendations Kcal/kg Additional Notes Protein needs 60-72g (1.25-1. 5g/kg) Fluid needs 1ml/kcal Nutrition Intervention Change Diet Order: Continue CPN, GI Soft with white rice applesauce, grits, plain egg, cherrios and banana only. Nutrition Support: Continue 12 hr cyclic CPN at 125/275/125 ml/hr. Lipids. MVI. Osmolality 1249. Kcal 2,240 Protein (gm) 95 Carbohydrates (gm) 400 Fat (gm) 50 Fluid (mL) 3,250 Fiber (gm) 0 Goal #1 Meet at least 75% of energy and protein needs via CPN Goal #2 Diet advancement/tolerance Anticipated Discharge Needs: 12 hour Cyclic TPN Follow-Up By: 02/12/20 Additional Comments FU for intakes
[2020-02-11] MEDS ORDERED: TOTAL PARENTERAL NUTRITION 3,000 ML IV SCH (20:00)
[2020-02-11] MEDS ORDERED: FAT EMULSIONS 20% 250 ML IV SCH (20:00)
[2020-02-11] MEDS: oxyCODONE /ACETAMINOPHEN 5-325MG TAB PO PRN (20:21)
[2020-02-12] MEDS: HYDROmorphone 1 MG/1 ML INJ IV PRN ×5 (04:29→21:28)
[2020-02-12] MEDS: oxyCODONE /ACETAMINOPHEN 5-325MG TAB PO PRN ×2 (05:26→15:55)
[2020-02-12] MEDS: HEPARIN 5,000 UNIT/1 ML VIAL SUB-Q SCH ×3 (05:27→21:27)
[2020-02-12] MEDS: NICOTINE 21 MG/24 HR PATCH TD SCH (09:04)
[2020-02-12] MEDS ORDERED: PANTOPRAZOLE 40 MG TAB PO SCH (10:00)
[2020-02-12] MEDS: oxyCODONE ER 10 MG TAB PO SCH ×2 (10:28→21:27)
--- NOTE | 2020-02-12 15:18 | Progress Note ---
Assessment and Plan POD 39/38/37/12 VSS AF tolerating diet, some leakage from ostomy bag, Wound nurse to see and correct, Pt seems in good spirits, alert and oriented, ask insightful questions, I answered all of his questions in detail, Wound nurse to see. Continue present management. Subjective Date of service: 02/12/20 Patient Reports: Positive: no new complaints, feels better, other (some leakage from ostomy) Objective Vital Signs - 12hr 02/12/20 02/12/20 07:52 11:10 Temperature 99.0 F 98.9 F Pulse Rate 101 H 95 H Respiratory 18 18 Rate Blood Pressure 111/70 Blood Pressure 107/73 [Left] O2 Sat by Pulse 97 98 Oximetry - General physical appearance no distress - Eyes PERRL, normal occular movement - ENT normal pinna, normal nares, normal mucosa, no hearing loss, no congestion - Neck no masses, no bruits, trachea midline, no lymphadectomy, no venous distension - Respiratory normal expansion, normal respiratory effort, clear to percussion, clear to auscultation - Abdomen soft, bowel sounds normal, wound (wound healing, stomas OK, some leakage around ostomy bag) - Psychiatric oriented to time, oriented to person, oriented to place, speech is normal, memory intact - Labs 02/03/20 04:00 02/08/20 05:40
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
[2020-02-12] MEDS ORDERED: TOTAL PARENTERAL NUTRITION 3,000 ML IV SCH (20:00)
[2020-02-13] MEDS: HYDROmorphone 1 MG/1 ML INJ IV PRN ×2 (01:50→05:53)
[2020-02-13 05:32] VITALS: BP 114/64
[2020-02-13] MEDS: HEPARIN 5,000 UNIT/1 ML VIAL SUB-Q SCH (05:36)
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
--- NOTE | 2020-02-13 12:31 | Event Note ---
Date: 02/13/20 Events noted, patient left the Hospital against medical advice, when I spoke with him yesterday he was alert and oriented x 3, and very clear mentally.
[2020-02-13] MEDS ORDERED: TOTAL PARENTERAL NUTRITION 3,000 ML IV SCH (20:00)
[2020-02-13] MEDS ORDERED: FAT EMULSIONS 20% 250 ML IV SCH (20:00)
== END 2020-02-13 08:15 | disposition left against medical advice (07) | DRG 329 ==
LOC: ED 11:36 → 3B-SURG 16:08 → OBSVTOIN 12-28 11:52 → CC1 12-29 19:34 → 3B-SURG 01-01 15:35 → UNDODISIN 01-31 14:59
PROVIDERS: ADMIT Internal Medicine; ATTEND Internal Medicine
PROC: 0D9670Z Drainage of Stomach with Drainage Device, Via Natural or Artificial Opening (ICD-10-PCS; 2019-12-28)
PROC: 0DBA0ZZ Excision of Jejunum, Open Approach (ICD-10-PCS; principal; 2019-12-29)
PROC: 0BH17EZ Insertion of Endotracheal Airway into Trachea, Via Natural or Artificial Opening (ICD-10-PCS; 2019-12-29)
PROC: 5A1945Z Respiratory Ventilation, 24-96 Consecutive Hours (ICD-10-PCS; 2019-12-29)
PROC: 0DBB0ZZ Excision of Ileum, Open Approach (ICD-10-PCS; 2019-12-29)
PROC: 0DNW0ZZ Release Peritoneum, Open Approach (ICD-10-PCS; 2019-12-29)
PROC: 0DNU0ZZ Release Omentum, Open Approach (ICD-10-PCS; 2019-12-29)
PROC: 0DN80ZZ Release Small Intestine, Open Approach (ICD-10-PCS; 2019-12-29)
PROC: 02HV33Z Insertion of Infusion Device into Superior Vena Cava, Percutaneous Approach (ICD-10-PCS; 2019-12-30)
PROC: 0DBB0ZZ Excision of Ileum, Open Approach (ICD-10-PCS; 2019-12-30)
PROC: 0DBH0ZZ Excision of Cecum, Open Approach (ICD-10-PCS; 2019-12-30)
PROC: 0D1A0Z4 Bypass Jejunum to Cutaneous, Open Approach (ICD-10-PCS; 2019-12-31)
PROC: 0W9G3ZZ Drainage of Peritoneal Cavity, Percutaneous Approach (ICD-10-PCS; 2020-01-09)
PROC: 0JH63WZ Insertion of Totally Implantable Vascular Access Device into Chest Subcutaneous Tissue and Fascia, Percutaneous Approach (ICD-10-PCS; 2020-01-10)
PROC: 02H633Z Insertion of Infusion Device into Right Atrium, Percutaneous Approach (ICD-10-PCS; 2020-01-10)
PROC: B548ZZA Ultrasonography of Superior Vena Cava, Guidance (ICD-10-PCS; 2020-01-10)
PROC: B5181ZA Fluoroscopy of Superior Vena Cava using Low Osmolar Contrast, Guidance (ICD-10-PCS; 2020-01-10)
PROC: 0W9G3ZZ Drainage of Peritoneal Cavity, Percutaneous Approach (ICD-10-PCS; 2020-01-17)
PROC: 4A033R1 Measurement of Arterial Saturation, Peripheral, Percutaneous Approach (ICD-10-PCS; 2020-01-28)
PROC: 30233K1 Transfusion of Nonautologous Frozen Plasma into Peripheral Vein, Percutaneous Approach (ICD-10-PCS; 2020-01-30)
PROC: 30233N1 Transfusion of Nonautologous Red Blood Cells into Peripheral Vein, Percutaneous Approach (ICD-10-PCS; 2020-01-31)
PROC: 0D1A0Z4 Bypass Jejunum to Cutaneous, Open Approach (ICD-10-PCS; 2020-01-31)
DX: K55.8 Other vascular disorders of intestine (principal); G93.41 Metabolic encephalopathy; A41.9 Sepsis, unspecified organism; J96.00 Acute respiratory failure, unspecified whether with hypoxia or hypercapnia; E43 Unspecified severe protein-calorie malnutrition; K63.1 Perforation of intestine (nontraumatic); K56.609 Unspecified intestinal obstruction, unspecified as to partial versus complete obstruction; E87.2 Acidosis; Z68.1 Body mass index [BMI] 19.9 or less, adult; K91.2 Postsurgical malabsorption, not elsewhere classified; D69.6 Thrombocytopenia, unspecified; F17.210 Nicotine dependence, cigarettes, uncomplicated; E86.0 Dehydration; G47.00 Insomnia, unspecified; Z90.49 Acquired absence of other specified parts of digestive tract; Z90.5 Acquired absence of kidney; Z92.3 Personal history of irradiation; Z92.21 Personal history of antineoplastic chemotherapy; Z71.6 Tobacco abuse counseling; R11.2 Nausea with vomiting, unspecified; T40.695A Adverse effect of other narcotics, initial encounter; Y92.098 Other place in other non-institutional residence as the place of occurrence of the external cause
CPT/HCPCS: 36415; 36561; 36600; 49083; 71045; 74018; 74176; 74177; 76937; 80048; 80053; 80076; 81001; 82140; 82803; 82805; 82947; 82962; 83550; 83690; 83735; 84100; 84132; 84478; 85007; 85025; 85027; 85610; 85730; 86022; 86850; 86900; 86901; 86920; 87040; 87070; 87075; 87076; 87116; 87186; 87205; 88112; 88304; 88305; 88307; 88331; 88341; 88342; 89051; 94002; 94003; 96361; 96372; 96374; 96375; 99406; G0378; C1788; C9113; J0330; J0461; J0690; J0696; J1100; J1170; J1450; J1644; J1650; J1885; J1956; J2060; J2250; J2270; J2370; J2405; J2543; J2704; J2710; J2765; J3010; J3430; J3475; J3480; J7030; J7040; J7120; P9016; P9017; P9047; Q9967

== ENCOUNTER 2020-12-22 15:32 | Emergency (ER) | payer MEDICAID ==
[2020-12-22] MEDS ORDERED: SODIUM CHLORIDE 0.9% 1000 ML 1,000 ML IV ONE ×2 (18:44→20:14)
--- NOTE | 2020-12-22 18:47 | Event Note ---
ED Screening Note Date of service: 12/22/20 Time: 18:44 ED Screening Note: 40-year-old male patient with history of multiple abdominal surgeries presents emergency department with complaints of vomiting for 3 days. Patient uses TPN at baseline. Patient states he usually receives 6 L of fluid per day. Patient has not received any fluid today. He has not been able to tolerate his TPN feedings since his vomiting began. Patient states he is traveling from [facility] to [place] but was unable to continue with his travels due to his symptoms. Tachycardic in triage. General: Awake, appropriately interactive. Globally weak. Chronically ill- appearing. Neck: Supple. Full range of motion intact. Cardiovascular: Normal peripheral perfusion. Pulmonary: No respiratory distress. Patient is speaking normally without use of accessory muscles. Abdomen: Colostomy bag present. Skin: No apparent rashes or lesions. Neurological: No facial asymmetry. Speech is clear. Follows commands. Patient is alert and oriented. Musculoskeletal: Moves all four extremities spontaneously with normal range of motion. Psych: Cooperative. Appropriate mood and affect. in service coordinator and peripheral vascular access requested. Labs and urinalysis ordered. Imaging deferred to additional ED providers following further history and complete physical exam. I have greeted and performed a focused rapid initial assessment of this patient. A comprehensive ED assessment and evaluation of the patient, analysis of all test results, and completion of the medical decision-making process will be conducted by additional ED providers. This initial assessment/diagnostic orders/clinical plan/treatment(s) is/are subject to change based on patients health status, clinical progression and re-assessment. Further treatment and workup at subsequent clinical provider's discretion. Patient/guardian urged not to elope from the ED as their condition may be serious if not clinically assessed and managed.
[2020-12-22] MEDS ORDERED: HALOPERIDOL LACTATE 5 MG/1 ML INJ IV ONE (18:57)
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
[2020-12-22 19:13] LABS: Basophils # (Auto) 0.1 K/mm3 (0.0-0.1); Basophils % (Auto) 0.7 % (0.0-1.8); Eosinophils # (Auto) 0.5 K/mm3 (0.0-0.4); Eosinophils % (Auto) 5.6 % (0.0-4.3); Hemoglobin 14.2 gm/dl (11.8-15.2); Lymphocytes % (Auto) 20.6 % (13.4-35.0); Mean Corpuscular HGB Conc 32 % (32-34); Mean Corpuscular Volume 87 fl (84-94); Monocytes # (Auto) 0.6 K/mm3 (0.0-0.8); Monocytes % (Auto) 5.6 % (0.0-7.3); Platelet Count 349 K/mm3 (140-440); Red Blood Count 5.05 M/mm3 (3.65-5.03); Red Cell Distribution Width 17.5 % (13.2-15.2)
[2020-12-22 19:33] LABS: Albumin 4.7 g/dL (3.9-5); Calcium 9.8 mg/dL (8.4-10.2)
[2020-12-22] MEDS ORDERED: HYDROmorphone 1 MG/1 ML INJ IV ONE (21:02)
== END 2020-12-23 02:26 | disposition home or self-care (01) ==
LOC: ED 15:32
DX: E86.0 Dehydration (principal); N17.9 Acute kidney failure, unspecified; Z98.890 Other specified postprocedural states; F17.200 Nicotine dependence, unspecified, uncomplicated
CPT/HCPCS: 36415; 80053; 83735; 84100; 85025; 96361; 96374; 99283; J1630; J7030; 80320; G0480

== ENCOUNTER 2020-12-23 10:55 | Emergency (ER) | payer MEDICAID ==
--- NOTE | 2020-12-23 11:47 | Event Note ---
ED Screening Note Date of service: 12/23/20 Time: 11:46 ED Screening Note: Patient presents for TPN Seen here yesterday, however was not able to receive TPN Has a PICC midline in place Recently moved to [place] from [place] where he was receiving his TPN via hospital Patient states he has not had any TPN in 5 days This initial assessment/diagnostic orders/clinical plan/treatment(s) is/are subject to change based on patients health status, clinical progression and re- assessment by fellow clinical providers in the ED. Further treatment and workup at subsequent clinical providers discretion. Patient/guardian urged not to elope from the ED as their condition may be serious if not clinically assessed and managed. Initial orders include: Further eval by
[2020-12-23 11:50] VITALS: BP 123/80
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
[2020-12-23] MEDS ORDERED: MULTIPLE VITAMIN INJ, ADULT 10 ML in D5W/LACTATED RINGERS 1,000 ML IV ONE (14:00)
[2020-12-23 14:13] LABS: Basophils % (Auto) 0.8 % (0.0-1.8); Eosinophils # (Auto) 0.4 K/mm3 (0.0-0.4); Eosinophils % (Auto) 7.8 % (0.0-4.3); Hematocrit 35.7 % (35.5-45.6); Hemoglobin 11.9 gm/dl (11.8-15.2); Lymphocytes # (Auto) 1.3 K/mm3 (1.2-5.4); Lymphocytes % (Auto) 23.2 % (13.4-35.0); Mean Corpuscular HGB Conc 33 % (32-34); Mean Corpuscular Volume 86 fl (84-94); Monocytes # (Auto) 0.4 K/mm3 (0.0-0.8); Monocytes % (Auto) 7.8 % (0.0-7.3); Platelet Count 239 K/mm3 (140-440); Red Blood Count 4.16 M/mm3 (3.65-5.03); Red Cell Distribution Width 17.3 % (13.2-15.2)
[2020-12-23 14:20] LABS: Alanine Aminotransferase 49 units/L (7-56); Albumin 3.9 g/dL (3.9-5); BUN/Creatinine Ratio 18; Blood Urea Nitrogen 24 mg/dL (9-20); Calcium 8.5 mg/dL (8.4-10.2); Hemolysis Index 6
[2020-12-23 15:10] LABS: Hepatitis C Virus Antibody Non-Reactive (NonReactive)
[2020-12-23 15:28] LABS: Hepatitis B Surface Antigen Nonreactive (Negative)
--- NOTE | 2020-12-23 16:25 | Event Note ---
Date: 12/23/20 Patient re evaluated for the need for TPN All his labs are normal Vital signs are normal Patient can take food orally in small quantities Patient can survive for 24 hours without TPN Patient being discharged Discharge diagnosis Dehydration--corrected
[2020-12-23] MEDS ORDERED: FAT EMULSIONS 20% 250 ML IV SCH (20:00)
[2020-12-23] MEDS ORDERED: AMINO ACIDS 4.25%/DEXTROSE 10% 2,000 ML IV SCH (20:00)
== END 2020-12-23 18:45 | disposition admitted as inpatient to this hospital (09) ==
LOC: ED 10:55
DX: Z43.3 Encounter for attention to colostomy (principal); E46 Unspecified protein-calorie malnutrition; Z98.890 Other specified postprocedural states; Z79.899 Other long term (current) drug therapy
CPT/HCPCS: 36415; 80053; 80074; 82550; 83735; 84100; 84478; 85025; 96365; 99283; J7121